=== PATIENT | female | born 1935 | race Caucasian/White ===

== ENCOUNTER → 2020-02-08 10:39 | Outpatient (BNVA) | payer MEDICARE, OTHER, SELFPAY | PROVIDERS: PCP Internal Medicine; Visit Provider Surgery | DX: Z86.000 Personal history of in-situ neoplasm of breast (principal) | CPT/HCPCS: 99213 ==

== ENCOUNTER → 2020-02-24 09:33 | Outpatient (BNVA) | payer MEDICARE, OTHER, SELFPAY | PROVIDERS: PCP Internal Medicine; Referring Provider Internal Medicine; Visit Provider Internal Medicine Endocrinology, Diabetes & Metabolism | DX: M81.0 Age-related osteoporosis without current pathological fracture (principal); E83.52 Hypercalcemia; Z87.891 Personal history of nicotine dependence | CPT/HCPCS: 99212 ==

== ENCOUNTER → 2020-02-29 10:56 | Outpatient (BNVA) | payer MEDICARE, OTHER, SELFPAY | PROVIDERS: PCP Internal Medicine; Visit Provider Nurse Practitioner Gerontology | DX: M81.0 Age-related osteoporosis without current pathological fracture (principal) | CPT/HCPCS: 96401; J0897 ==

== ENCOUNTER 2020-03-20 08:44 | Outpatient (REF) | payer MEDICARE, OTHER, SELFPAY ==
[2020-03-20 10:51] LABS: Alanine Aminotransferase 20 U/L (0-31); Albumin Level 3.8 g/dL (3.5-5.0); Alkaline Phosphatase 65 U/L (39-117); Anion Gap 11 (12-20); Aspartate Amino Transferase 21 U/L (5-31); Bilirubin Total 0.8 mg/dL (0.0-1.0); Blood Urea Nitrogen 21 mg/dL (9-16); Calcium 9.1 mg/dL (8.4-10.2); Carbon Dioxide 29 mmol/L (22-29); Chloride 106 mmol/L (96-108); Estimated Glomerular Filt Rate > 60; Glucose Fasting 87 mg/dL (60-99); Potassium 4.2 mmol/l (3.3-5.1); Sodium 142 mmol/L (135-145); Total Protein 6.4 g/dL (6.5-8.0)
[2020-03-20 11:11] LABS: Vitamin D 25-OH Total 43.3 ng/mL (>30)
[2020-03-22 12:12] LABS: Calcium (PTHI) 9.6 mg/dL (8.6-10.4); PTHI 57 pg/mL (14-64)
[2020-03-27 07:42] LABS: N-Telopeptide 25 (see note); NTXCreaRU 74 mg/dL (20-275)
== END 2020-03-20 08:45 | disposition home or self-care (01) ==
LOC: HO.10HDL 08:44
PROVIDERS: Visit Provider Internal Medicine Endocrinology, Diabetes & Metabolism
DX: M81.0 Age-related osteoporosis without current pathological fracture (principal)
CPT/HCPCS: 80053; 82306; 82523; 83970

== ENCOUNTER 2020-07-10 07:51 | Outpatient (REF) | payer MEDICARE, OTHER, SELFPAY ==
[2020-07-10 14:22] LABS: Alanine Aminotransferase 20 U/L (0-31); Alkaline Phosphatase 64 U/L (39-117); Anion Gap 13 (12-20); Aspartate Amino Transferase 22 U/L (5-31); Bilirubin Total 0.6 mg/dL (0.0-1.0); Blood Urea Nitrogen 20 mg/dL (9-16); Calcium 9.6 mg/dL (8.4-10.2); Carbon Dioxide 29 mmol/L (22-29); Chloride 106 mmol/L (96-108); Cholesterol 165 mg/dL; Estimated Glomerular Filt Rate > 60; Glucose Fasting 85 mg/dL (60-99); HDL Cholesterol 72 mg/dL; LDL Cholesterol Calculated 80 mg/dl; Potassium 4.3 mmol/L (3.3-5.1); Sodium 144 mmol/L (135-145); Total Protein 6.6 g/dL (6.5-8.0); Triglycerides 69 mg/dL
== END 2020-07-10 07:52 | disposition home or self-care (01) ==
LOC: HO.10HDL 07:51
PROVIDERS: Visit Provider Internal Medicine
DX: E78.5 Hyperlipidemia, unspecified (principal)
CPT/HCPCS: 36415; 80053; 80061

== ENCOUNTER 2020-08-02 10:01 | Outpatient (REF) | payer MEDICARE, OTHER, SELFPAY ==
--- NOTE | 2020-08-03 14:39 | MHC.AU.AHA ---
Adult Audiological Evaluation Date of Visit: 08/02/20 Reason for Appointment: History of hearing loss. Patient arrives to determine if there have been any changes in hearing. 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 Ear History: Recent Ear Drainage: None Reported Recent Ear Pain: None Reported Recent Ear Infections: None Reported Medical History: Medical History: COPD, Hypertension Hearing Instrument History- Right Ear: Unitizer: Phonak Model: Makstr M BTE Serial Number: [id number] Battery Size: 312 Repair Warranty: 11/30/2013 Dispensed By: [facility] Date of Fitt[place]09/18/2011 Hearing Instrument History- Left Ear: Unitizer: Phonak Model: Makstr M BTE Serial Number: [id number] Battery Size: 312 Warranty: 11/30/2013 Dispensed By: [facility] Date of Fittin09/18/2011 Otoscopy: Right Ear: Unremarkable Left Ear: Unremarkable Hearing Evaluation: Transducer(s) Used: Insert Earphones Method: Conventional Audiometry Stimuli Used: Pure Tones Right Ear: Description of Hearing: Moderate sloping to moderately-severe sensorineural hearing loss Left Ear: Description of Hearing: Moderate sloping to moderately-severe sensorineural hearing loss Speech Recognition Threshold (SRT): Method Used: Recorded Lists Stimuli Used: Spondee Words Right Ear: 55 dBHL Left Ear: 55 dBHL Word Discrimination: Method: Recorded Lists Word Lists Used: NU-6 Right Ear: 80% at 85 dBHL Left Ear: 84% at 75 dBHL Most Comfortable Level (MCL): Right Ear: 85 dBHL Left Ear: 75 dBHL Comparison: Compared to most recent evaluation: Thresholds have slightly decreased Recommendations: Audiological re-evaluation in one year. Hearing aid maintenance performed today. Hearing aid(s) reprogrammed with updated test results. Diagnosis: Primary Diagnosis: H90.3 Bilateral Sensorineural Hearing Loss Services Performed: Comprehensive Audiological Evaluation (CPT 42474) Signature: Provider: Selma Cordova, [facility]
== END 2020-08-02 10:02 | disposition home or self-care (01) ==
LOC: HO.SH 10:01
PROVIDERS: Visit Provider Internal Medicine
DX: H90.3 Sensorineural hearing loss, bilateral (principal)
CPT/HCPCS: 92557

== ENCOUNTER → 2020-08-30 11:15 | Outpatient (BNVA) | payer MEDICARE, OTHER, SELFPAY | PROVIDERS: PCP Internal Medicine; Visit Provider Internal Medicine Endocrinology, Diabetes & Metabolism | DX: M81.0 Age-related osteoporosis without current pathological fracture (principal); E83.52 Hypercalcemia | CPT/HCPCS: 96372; 99212; J0897 ==

== ENCOUNTER 2020-09-07 13:02 | Outpatient (REF) | payer MEDICARE, OTHER, SELFPAY | END 2020-09-07 13:03 | disposition home or self-care (01) | LOC: HO.HAP 13:02 | PROVIDERS: Visit Provider Internal Medicine | DX: N39.41 Urge incontinence (principal); K21.9 Gastro-esophageal reflux disease without esophagitis; I10 Essential (primary) hypertension | CPT/HCPCS: 51798; 99212 ==

== ENCOUNTER 2020-09-15 09:29 | Outpatient (REF) | payer MEDICARE, OTHER, SELFPAY ==
[2020-09-15 10:51] LABS: Albumin Level 4.1 g/dL (3.5-5.0); Calcium 9.6 mg/dL (8.4-10.2)
== END 2020-09-15 09:30 | disposition home or self-care (01) ==
LOC: HO.LAB 09:29
PROVIDERS: PCP Internal Medicine; Visit Provider Internal Medicine Endocrinology, Diabetes & Metabolism
DX: M81.0 Age-related osteoporosis without current pathological fracture (principal)
CPT/HCPCS: 36415; 82040; 82310

== ENCOUNTER 2020-09-25 11:47 | Outpatient (REF) | payer SELFPAY | END 2020-09-25 11:48 | disposition home or self-care (01) | LOC: HO.HAP 11:47 | PROVIDERS: Visit Provider Internal Medicine | DX: Z46.1 Encounter for fitting and adjustment of hearing aid (principal); H90.3 Sensorineural hearing loss, bilateral | CPT/HCPCS: V5264; V5299 ==

== ENCOUNTER 2020-12-22 10:00 | Outpatient (REF) | payer MEDICARE, OTHER, SELFPAY ==
--- NOTE | ~2020-12-22 | MM_ITS ---
EXAMINATION: MM SCREENING DIGITAL BREAST TOMOSYNTHESIS, BILATERAL CLINICAL INFORMATION: Screening. Asymptomatic. History right lumpectomy for breast cancer, 2007. COMPARISON: Mammography: 12/21/2019, 12/18/2018, 12/16/2017, 11/28/2016 TECHNIQUE: Digital breast tomosynthesis is performed in both the craniocaudal and mediolateral oblique views along with computer-aided detection (CAD). Synthesized 2D images are generated from the tomosynthesis. Additional right MLO view is provided. FINDINGS: There are scattered areas of fibroglandular density (ACR BI-RADS breast composition Category b). There are no significant masses, abnormal calcifications, or other abnormalities. Parenchymal pattern is similar to prior exams. There are post therapy changes on the right with mild reduced breast size and stable scarring. There is stable nodularity anterior and posterior inner left breast. Scattered bilateral vascular and round calcifications again seen. No significant changes. MM/MM tomosynthesis screening BI IMPRESSION: No mammographic evidence of malignancy. Post therapy changes right breast. ASSESSMENT: BI-RADS 2: Benign RECOMMENDATION: Routine annual mammography screening. This patient's information was entered into a reminder system with a target due date for their next mammogram.
== END 2020-12-22 10:01 | disposition home or self-care (01) ==
LOC: HO.MAMMO 10:00
PROVIDERS: PCP Internal Medicine; Visit Provider Nurse Practitioner Family
DX: Z12.31 Encounter for screening mammogram for malignant neoplasm of breast (principal)
CPT/HCPCS: 77063; 77067

== ENCOUNTER 2021-01-28 17:29 | Emergency (ER) | payer MEDICARE, OTHER, SELFPAY ==
--- NOTE | ~2021-01-28 | CT_ITS ---
EXAMINATION: CT HEAD WITHOUT CONTRAST CLINICAL INFORMATION: Left leg numbness and weakness for 4 days. Aphasia for 4 hours. Rule out stroke or bleed COMPARISON: Brain MRI 05/19/2019 TECHNIQUE: Contiguous axial imaging was performed from the skull base to vertex without intravenous administration of contrast. This CT examination was performed using dose optimization techniques as appropriate, variously including the following: *Automated exposure control *Adjustment of mA and/or kV according to patient size (this includes techniques or standardized protocols for targeted exams where dose is matched to indication/reason for exam; i.e. extremities or head) *Use of iterative reconstruction technique DLP: 548 mGy-cm FINDINGS: There is no evidence of acute intracranial hemorrhage or territorial infarction. No abnormal mass effect or midline shift is seen. Ha[place] to white matter differentiation is well preserved. No extra-axial fluid collections are identified. Ventricles and sulci are similar in configuration to the prior study. Again seen are bilateral well-circumscribed areas of CSF density in the bilateral basal ganglia consistent with chronic lacunar infarcts and likely superimposed prominent perivascular spaces as was noted on the prior MRI. Moderate patchy periventricular and subcortical white matter hypodensity is seen as well. The osseous structures and soft tissues are normal. The mastoid air cells and visualized portions of the paranasal sinuses are well aerated. CT/CT head/brain wo con IMPRESSION: No acute intracranial pathology.
[2021-01-28 17:42] VITALS: BP 180/85; BP 190/70; PULSE 71; PULSE 86; RESP 16; TEMP 36.4; O2SAT 100; O2SAT 99; BMI 26.4
--- NOTE | 2021-01-28 18:30 | ED_ITS ---
HPI - General Adult General Chief complaint: General Medical Stated complaint: R FACE DROOP,SPEECH DIFF SINCE FRIDAY,-STROKE SC Time Seen by Provider: 01/28/21 18:08 Source: patient Mode of arrival: EMS Limitations: no limitations History of Present Illness HPI narrative: 85-year-old female who presents emergency department for evaluation of intermittent, left leg weakness and numbness x4 days and difficulty with word finding times several hours. The patient states that on (4 days prior to evaluation) she developed numbness in her left leg. She states that the numbness is been constant. She denied pain in her leg. She states that 3 days prior to evaluation she was walking up the stairs into her house and her left leg felt weak and gave out on her causing her to fall forward. This was a witnessed fall and the patient did not hit her head or lose consciousness. She states that since fall she has had intermittent weakness of her left leg and persistent numbness. She states she is having some mild pain in her left buttocks area but no pain in her lower back. Patient has a history osteoarthritis of the spine and states that she has had workups in the past by the [facility]. She states that today she was talking to her neighbor and her neighbor told her that her speech was slurred and that she was having difficulty with word finding. Given this symptom, an ambulance was called and the patient was brought to the emergency department for evaluation. In the emergency department, the patient states that her speech sounds normal to her, her sisters tears well and states that the patient's speech is at her baseline. The patient continues to complain of numbness in her left leg with no weakness at this time, no pain and some mild pain in her left buttocks area. She denied fever, chills, chest pain, shortness of breath, cough, dyspnea on exertion, abdominal pain, loss of bowel or bladder control. Related Data Home Medications Medication Instructions Recorded Confirmed glucosamine sulfate 1,000 mg 1,000 mg PO DAILY cap 02/08/20 10/24/20 capsule ibuprofen 200 mg tablet (Advil) 200 mg PO Q6H PRN 02/08/20 10/24/20 multivitamin 1 tab PO DAILY 02/08/20 10/24/20 aspirin 81 mg tablet,delayed 81 mg PO DAILY 02/24/20 10/24/20 release (Adult Aspirin Regimen) denosumab 60 mg/mL subcutaneous 60 mg SUBCUT [id number] 05/16/20 10/24/20 syringe (Prolia) lansoprazole 30 mg capsule,delayed 30 mg PO DAILY cap 05/16/20 10/24/20 release nitrofurantoin macrocrystal 100 mg 100 mg PO BEDTIME 09/07/20 10/24/20 capsule Previous Rx's Medication Instructions Recorded amlodipine 2.5 mg tablet 2.5 mg PO DAILY 90 Days #90 tab 05/16/20 losartan 100 mg tablet 100 mg PO DAILY 90 Days #90 tab 05/16/20 tolterodine 4 mg capsule,extended 4 mg PO DAILY 90 Days #90 cap 05/30/20 release 24 hr hydrochlorothiazide 12.5 mg capsule 12.5 mg PO DAILY #90 cap 06/18/20 simvastatin 20 mg tablet 20 mg PO BEDTIME #90 tab 07/11/20 tiotropium bromide 18 mcg capsule 1 cap INHALATION DAILY 90 Days #90 01/03/21 with inhalation device inh prednisone 20 mg tablet 40 mg PO DAILY 7 Days #14 tab 01/28/21 Allergies Allergy/AdvReac Type Severity Reaction Status Date / Time cephalexin [Keflex] Allergy Intermediate Unknown Verified 10/24/20 14:30 tetracycline [Tetracycline] Allergy Intermediate TONGUE Verified 10/24/20 14:30 SWOLLEN diphtheria,pertussis Allergy Mild Unknown Verified 10/24/20 14:30 (amina aguilar Review of Systems Review of Systems: Yes all other systems are reviewed and are negative [facility] Past Medical History [facility] Narrative: Social history: She denies tobacco use. She states that she drinks alcohol every other day, she drinks 4 oz of wine. She denies drug use. Medical History COPD (chronic obstructive pulmonary disease) Dyslipidemia GERD (gastroesophageal reflux disease) Hearing loss History of ductal carcinoma in situ (DCIS) of breast Hypercalcemia Hypertension Osteoporosis Screening for breast cancer Urge urinary incontinence Surgical History H/O right inguinal hernia repair History of colonoscopy History of lumpectomy of right breast History of pubovaginal sling Family History Family History Father Heart failure CVD (cardiovascular disease) Mother Breast cancer Social History Social History Alcohol intake: current Alcohol intake frequency: does not drink Alcohol type: wine Patient Tobacco Use Status: Former Tobacco user Quit Date: 02/04/91 Use of substances other than those prescribed or required for medical reasons: No Advance Directives: No Advance Directives Information Provided: No Physical Exam Vital Signs: Vital Signs: Last Vital Signs Temp 97.6 F 01/28/21 17:42 Pulse 71 01/28/21 17:42 Resp 16 01/28/21 17:42 BP 190/70 H 01/28/21 17:42 Pulse Ox 100 01/28/21 17:42 Body Mass Index 26.4 Const: General: cooperative and no acute distress Orientation/consciousness: oriented to person and oriented to place Limitations: no limitations HENMT: Head: Yes normal to inspection, Yes normocephalic and Yes atraumatic Ears: external ears normal General nose exam: Normal external nose present Face and sinus: Yes normal facial exam Mouth: Normal oral and palatal mucosa present Throat: Yes posterior oropharynx normal Eyes: General: appearance normal, both eyes and all related structures Pupils: Equal, round and reactive pupils present Neck: Neck: Yes normal visual inspection, Yes no lymphadenopathy, Yes trachea midline and Yes supple Chest: Chest palpation & inspection: normal inspection of the chest and normal palpation of entire chest wall Resp: Effort & Inspection: normal respiratory effort and able to speak in com plete sentences Auscultation: clear to auscultation bilaterally Cardio: Rate: regular rate Rhythm: regular rhythm Heart sounds: S1 normal heart sound present, S2 normal heart sound present and no murmurs GI: Inspection: Yes normal to inspection Palpation (GI): Soft to palpation, nontender and no guarding Auscultation: normal bowel sounds : General: Yes no CVA tenderness Back/Spine/Pelvis: Other: No cervical spine tenderness., no cervical muscle tenderness. Full range of motion common. Back: no CVA tenderness Thoracic/Lumbar Spine: straight leg raise negative bilaterally, No thoracic spinal tenderness, lumbar spinal tenderness at L3, at L4 and at L5 and other (Mi ld tenderness with palpation of the left buttocks, no SI joint tenderness) Skin: General skin exam: no rashes or lesions noted Neuro: General: oriented to person and oriented to place Cranial nerves: Yes CN's II-XII intact bilaterally and Yes Equal, round and reactive pupils present Cognition (Neuro): normal cognition Motor exam (neuro): 5/5 motor strength present throughout Sensory Exam: other (Symmetric light touch bilaterally) Extrem: General: Yes normal to inspection Psych: Appearance: grossly normal Speech and movement: Normal speech and movement present Affect: normal affect Attitude: cooperative Thought process: Normal thought process present Thought content: Normal thought content present NIH Stroke Scale Level of Consciousness: Alert Level of Consciousness Questions: Answers both questions correctly Level of Consciousness Commands: Performs both tasks correctly Best Gaze: Normal Visual: No visual loss Facial Palsy: Normal Motor Arm (Right): No drift Motor Arm (Left): No drift Motor Leg (Right): No drift Motor Leg (Left): No drift Limb Ataxia: Absent Sensory: Normal Best Language: No aphasia Dysarthia: Normal Extinction and Inattention: No abnormality Score: 0 Course Course Course Narrative: 85-year-old female who presents emergency department for evaluation numbness and intermittent weakness of her left lower extremity x4 days, left buttocks pain x4 days, and reported difficulty with slurred speech and word-finding difficulties times several hours prior to coming to the emergency department. The patient's vital signs revealed an elevated blood pressure of 190/70 otherwise were unremarkable. The patient's neurologic exam was nonfocal, the patient does have some tenderness palpation of her lumbar spine and left buttocks area. She has normal light touch sensation to her lower extremities and this is symmetric. Given her reported difficulty with her speech, a CT scan of the head without IV contrast was ordered. I also ordered a CBC, CMP, urinalysis, blood alcohol level, urine tox screen. Twelve EKG was obtained as well. 2044: Patient's laboratory evaluation was unremarkable. CT scan of the head without contrast revealed no acute pathology. At this time I do not think the patient has had a stroke or TIA. The patient's left leg numbness is more consistent with radiculopathy. Patient was started on prednisone 40 mg once a day for 7 days . She was also advised to take Tylenol for pain and to avoid NSAIDs. Patient was discharged home with printed and verbal instructions. Medical Decision Making Lab Data Result diagrams: 01/28/21 18:40 01/28/21 18:40 Labs: Lab Results 01/28/21 01/28/21 01/28/21 Range/Units 18:40 18:40 18:40 WBC 5.0 (4.8-10.8) X10*3/uL RBC 4.10 L (4.20-5.50) X10*6/uL Hgb 12.5 (12.0-16.0) g/dl Hct 37.7 (37-47) % MCV 92.0 (80-98) fL MCH 30.5 (27.0-33.0) pg MCHC 33.2 (31.0-35.0) g/dl RDW 12.9 (11.0-16.0) % Plt Count 298 (160-400) X10*3/uL MPV 9.6 (9.4-12.3) fL Immature Gran % (Auto) 0.2 (0.0-0.4) % Neut % (Auto) 60.0 (45-73) % Lymph % (Auto) 26.3 (20-40) % [place] % (Auto) 11.1 H (2-11) % Eos % (Auto) 2.0 (0-4) % Baso % (Auto) 0.4 (0-2) % Lymph # (Auto) 1.3 (1.2-4.9) X10*3/uL [place] # (Auto) 0.6 (0.1-1.2) X10*3/uL Eos # (Auto) 0.1 (0.0-0.4) X10*3/uL Baso # (Auto) 0.0 (0.0-0.2) X10*3/uL Abs Immat Gran (auto) 0.01 (0.00-0.03) X10*3/uL Absolute Neuts (auto) 3.0 (2.0-8.3) X10*3/uL Absolute Nucleated RBC 0.000 (0.0-0.012) X10*3/uL Nucleated RBC % (auto) 0.0 (0.0-0.2) /100WBC Sodium 143 (135-145) mmol/L Potassium 3.7 (3.3-5.1) mmol/L Chloride 107 (96-108) mmol/L Carbon Dioxide 27 (22-29) mmol/L Anion Gap 13 (12-20) BUN 21 H (9-16) mg/dL Creatinine 0.78 (0.5-1.4) mg/dL Estim Creat Clear Calc 37.7 Estimated GFR > 60 Random Glucose 110 (60-115) mg/dL Calcium 10.1 (8.4-10.2) mg/dL Total Bilirubin 0.7 (0.0-1.0) mg/dL AST 22 (5-31) U/L ALT 17 (0-31) U/L Alkaline Phosphatase 72 (39-117) U/L Total Protein 6.8 (6.5-8.0) g/dL Albumin 3.9 (3.5-5.0) g/dL Urine Color Urine Appearance Urine pH (5.0-8.0) Ur Specific [place] (1.005-1.025) Urine Protein (NEG-TRACE) MG/DL Urine Glucose (UA) (NEG) MG/DL Urine Ketones (NEG) MG/DL Urine Blood (NEG) Urine Nitrite (NEG) Ur Leukocyte Esterase (NEG) Urine RBC (0) /HPF Urine WBC (0-4) /HPF Ur Squamous Epith Cells /LPF Urine Bacteria /LPF Ethyl Alcohol < 10 mg/dL 01/28/21 Range/Units 20:18 WBC (4.8-10.8) X10*3/uL RBC (4.20-5.50) X10*6/uL Hgb (12.0-16.0) g/dl Hct (37-47) % MCV (80-98) fL MCH (27.0-33.0) pg MCHC (31.0-35.0) g/dl RDW (11.0-16.0) % Plt Count (160-400) X10*3/uL MPV (9.4-12.3) fL Immature Gran % (Auto) (0.0-0.4) % Neut % (Auto) (45-73) % Lymph % (Auto) (20-40) % [place] % (Auto) (2-11) % Eos % (Auto) (0-4) % Baso % (Auto) (0-2) % Lymph # (Auto) (1.2-4.9) X10*3/uL [place] # (Auto) (0.1-1.2) X10*3/uL Eos # (Auto) (0.0-0.4) X10*3/uL Baso # (Auto) (0.0-0.2) X10*3/uL Abs Immat Gran (auto) (0.00-0.03) X10*3/uL Absolute Neuts (auto) (2.0-8.3) X10*3/uL Absolute Nucleated RBC (0.0-0.012) X10*3/uL Nucleated RBC % (auto) (0.0-0.2) /100WBC Sodium (135-145) mmol/L Potassium (3.3-5.1) mmol/L Chloride (96-108) mmol/L Carbon Dioxide (22-29) mmol/L Anion Gap (12-20) BUN (9-16) mg/dL Creatinine (0.5-1.4) mg/dL Estim Creat Clear Calc Estimated GFR Random Glucose (60-115) mg/dL Calcium (8.4-10.2) mg/dL Total Bilirubin (0.0-1.0) mg/dL AST (5-31) U/L ALT (0-31) U/L Alkaline Phosphatase (39-117) U/L Total Protein (6.5-8.0) g/dL Albumin (3.5-5.0) g/dL Urine Color YELLOW Urine Appearance CLEAR Urine pH 6.5 (5.0-8.0) Ur Specific [place] 1.010 (1.005-1.025) Urine Protein NEG (NEG-TRACE) MG/DL Urine Glucose (UA) NEG (NEG) MG/DL Urine Ketones NEG (NEG) MG/DL Urine Blood NEG (NEG) Urine Nitrite NEG (NEG) Ur Leukocyte Esterase TRACE H (NEG) Urine RBC 0 (0) /HPF Urine WBC 5-9 H (0-4) /HPF Ur Squamous Epith Cells TRACE /LPF Urine Bacteria NONE /LPF Ethyl Alcohol mg/dL ECG Data Interpretation: 1911: Normal sinus rhythm rate of 71, normal ND interval QRS normal QTC interval, no ST segment elevation, no ST segment depression, small Q- wave in lead 3 and AVF, no PACs, no PVCs. This is a normal EKG. Discharge Plan Discharge Clinical Impression: Acute left lumbar radiculopathy Patient Disposition: Home, Self-Care Instructions: Lumbar Radiculopathy (ED) Additional Instructions: Your laboratory evaluation was unremarkable. The CT scan of your brain did not reveal any stroke or bleeding in the brain. The left leg numbness is most likely caused by either arthritis of your lower back or discs of your lower back causing inflammation around the nerves to go down your left leg. This is called lumbar radiculopathy. I am treating you with prednisone 20 mg pills, 2 pills once a day for 7 days. This is a strong anti-inflammatory pain medication. Do not take any [id number] anti-inflammatory medications such as ibuprofen, Motrin, Advil, naproxen or Aleve. You can take Tylenol (acetaminophen) 500 mg pills, 2 pills every 4 to 6 hours as needed for pain. Follow-up with your doctor in 2 days. Please return to the emergency department if your symptoms get worse or if you develop any symptoms that are concerning to you. Prescriptions: New prednisone 20 mg tablet 40 mg PO DAILY 7 Days Qty: 14 RF: 0 No Action amlodipine 2.5 mg tablet 2.5 mg PO DAILY 90 Days Qty: 90 RF: 3 losartan 100 mg tablet 100 mg PO DAILY 90 Days Qty: 90 RF: 3 tolterodine 4 mg capsule,extended release 24hr 4 mg PO DAILY 90 Days Qty: 90 RF: 2 hydrochlorothiazide 12.5 mg capsule 12.5 mg PO DAILY Qty: 90 RF: 3 simvastatin 20 mg tablet 20 mg PO BEDTIME Qty: 90 RF: 3 tiotropium bromide 18 mcg capsule, w/inhalation device 1 cap inhalation DAILY 90 Days Qty: 90 RF: 3 lansoprazole 30 mg capsule,delayed release(DR/EC) 30 mg PO DAILY RF: 0 Prolia 60 mg/mL syringe 60 mg subcut [id number] RF: 0 glucosamine sulfate 1,000 mg capsule 1,000 mg PO DAILY RF: 0 multivitamin Tablet 1 tab PO DAILY RF: 0 ibuprofen [Advil] 200 mg tablet 200 mg PO Q6H PRNRF: 0 aspirin [Adult Aspirin Regimen] 81 mg tablet,delayed release (DR/EC) 81 mg PO DAILY RF: 0 nitrofurantoin macrocrystal 100 mg capsule 100 mg PO BEDTIME RF: 0
--- NOTE | 2021-01-28 18:32 | ECG_ITS ---
Test Reason : WEAKNESS Blood Pressure : / mmHG Vent. Rate : 071 BPM Atrial Rate : 071 BPM P-R Int : 172 ms QRS Dur : 098 ms QT Int : 412 ms P-R-T Axes : 064 070 032 degrees QTc Int : 447 ms Normal sinus rhythm Intra-ventricular conduction delay Otherwise normal ECG When compared with ECG of 03-DEC-2016 11:26, Premature ventricular complexes are no longer Present Referred By: Ishaan Jauregui Electronically Signed By:RONA CORREA MD
[2021-01-28 18:43] LABS: MANUAL DIFF FLAG NO
[2021-01-28 18:44] LABS: Basophils Percent Auto 0.4 % (0-2); Eosinophils Absolute Auto 0.1 X10*3/uL (0.0-0.4); Hematocrit 37.7 % (37-47); Hemoglobin 12.5 g/dl (12.0-16.0); Imm Gran Abs Auto 0.01 X10*3/uL (0.00-0.03); Imm Gran Pct Auto 0.2 % (0.0-0.4); Lymphocytes Absolute Auto 1.3 X10*3/uL (1.2-4.9); Lymphocytes Percent Auto 26.3 % (20-40); Mean Corpuscular HGB Conc 33.2 g/dl (31.0-35.0); Mean Corpuscular Hemoglobin 30.5 pg (27.0-33.0); Mean Platelet Volume 9.6 fL (9.4-12.3); Monocytes Absolute Auto 0.6 X10*3/uL (0.1-1.2); Monocytes Percent Auto 11.1 % (2-11); Platelet Count 298 X10*3/uL (160-400); Red Cell Distribution Width 12.9 % (11.0-16.0)
[2021-01-28 19:03] LABS: Ethanol < 10 mg/dL
[2021-01-28 19:05] LABS: Alanine Aminotransferase 17 U/L (0-31); Albumin Level 3.9 g/dL (3.5-5.0); Alkaline Phosphatase 72 U/L (39-117); Anion Gap 13 (12-20); Aspartate Amino Transferase 22 U/L (5-31); Bilirubin Total 0.7 mg/dL (0.0-1.0); Blood Urea Nitrogen 21 mg/dL (9-16); Calcium 10.1 mg/dL (8.4-10.2); Carbon Dioxide 27 mmol/L (22-29); Chloride 107 mmol/L (96-108); Creatinine Clr Calc Pharmacy 37.7; Estimated Glomerular Filt Rate > 60; Glucose Random 110 mg/dL (60-115); Potassium 3.7 mmol/L (3.3-5.1); Sodium 143 mmol/L (135-145); Total Protein 6.8 g/dL (6.5-8.0)
--- NOTE | 2021-01-28 20:07 | PC.NURSE ---
pt placed on bedpan waiting for ct results. pt talking in full sentences aox3 no s/s or distress. call aguilar at bedside.
[2021-01-28 20:26] LABS: Appearance Urine CLEAR; Color Urine YELLOW; Glucose Urine UA NEG (NEG); Leukocyte Esterase Urine TRACE (NEG); Nitrite Urine NEG (NEG); PH 6.5 (5.0-8.0); UACC Culture Trigger YES; Urine Blood NEG (NEG); Urine Ketones NEG (NEG); Urine Protein NEG (NEG-TRACE)
[2021-01-28 20:37] LABS: RBC Urine 0 /HPF (0)
[2021-01-28 20:38] LABS: Squamous Epithelial Cell Urine TRACE /LPF
[2021-01-28 20:46] LABS: Amphetamine Screen Urine Not Detected (Not Detect); Barbiturates, Urine Not Detected (Not Detect); Benzodiazepines Screen Urine Not Detected (Not Detect); Cannabinoid Screen Urine Not Detected (Not Detect); Cocaine Screen Urine Not Detected (Not Detect); Fentanyl, urine Not Detected (Not Detect); Opiate Screen Urine Not Detected (Not Detect); Phencyclidine Screen Urine Not Detected (Not Detect)
[2021-01-28] MEDS: predniSONE 20 MG TABLET 40 MG PO (21:04)
== END 2021-01-28 21:12 | disposition home or self-care (01) ==
PROVIDERS: Emergency Provider Emergency Medicine Emergency Medical Services; PCP Internal Medicine
DX: M54.16 Radiculopathy, lumbar region (principal); I10 Essential (primary) hypertension; J44.9 Chronic obstructive pulmonary disease, unspecified; Z79.899 Other long term (current) drug therapy
CPT/HCPCS: 36415; 70450; 80053; 80307; 81001; 82077; 85025; 87086; 93005; 99284; 99285

== ENCOUNTER 2021-02-06 19:11 | Outpatient (REF) | payer MEDICARE, OTHER, SELFPAY ==
--- NOTE | ~2021-02-06 | MR_ITS ---
EXAMINATION: MR BRAIN WITHOUT CONTRAST CLINICAL INFORMATION: Weakness. COMPARISON: CT head from 01/28/2021. TECHNIQUE: MRI of the brain was obtained using routine sequences without contrast. FINDINGS: There is a region of restricted diffusion within the posterior limb of the right internal capsule (associated mildly low values on the ADC map). No additional focal restricted diffusion. No evidence of acute or chronic hemorrhagic products on heme-sensitive imaging. Scattered periventricular, deep white matter, and brainstem T2 FLAIR hyperintensities consistent with moderate underlying microangiopathy. Chronic lacunar infarcts of the bilateral lentiform nuclei and thalami. Etat crible. Proportional prominence of the ventricles and sulcal spaces without evidence of obstructive hydrocephalus. No abnormal mass effect. No midline shift. Normal appearance of the pituitary gland. Normal positioning of the cerebellar tonsils. Normal arterial and venous vascular flow voids are present. Normal, homogeneous marrow signal. Mild mucosal thickening of the paranasal sinuses. No signal abnormalities within the mastoids. MR/MR head/brain wo con IMPRESSION: 1. 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 2. Moderate underlying microangiopathy and generalized cerebral volume loss. Multiple chronic lacunar infarcts of the deep nuclei.
== END 2021-02-06 19:12 | disposition home or self-care (01) ==
LOC: HO.MRI 19:11
PROVIDERS: PCP Student in an Organized Health Care Education/Training Program; Visit Provider Internal Medicine
DX: R53.1 Weakness (principal)
CPT/HCPCS: 70551

== ENCOUNTER 2021-02-07 14:13 | Outpatient (REF) | payer MEDICARE, OTHER, SELFPAY ==
--- NOTE | ~2021-02-07 | XR_ITS ---
EXAMINATION: XR HIP, LEFT CLINICAL INFORMATION: Pain in left hip COMPARISON: None TECHNIQUE: Two views of the left hip. FINDINGS: There is no fracture or dislocation. The femoral head articulates appropriately with its acetabulum. The joint space is maintained. The visualized left hemipelvis is intact. Radiopaque hardware along the pubic symphysis bilaterally. XR/XR hip LT min 2V IMPRESSION: Normal left hip.
--- NOTE | ~2021-02-07 | XR_ITS ---
EXAMINATION: XR LUMBOSACRAL SPINE CLINICAL INFORMATION: Sciatica, left side COMPARISON: 11/03/2018 TECHNIQUE: Three views of the lumbosacral spine. FINDINGS: Osteopenia. No fracture or subluxation. Vertebral body height and alignment maintained. Mild disc space narrowing at L5-S1. Mild multilevel facet arthropathy with small endplate osteophytes. The sacroiliac joints are symmetric. The visualized sacrum is intact. Nonobstructive bowel gas pattern. XR/XR lumbar spine 2-3V IMPRESSION: Mild multilevel degenerative changes of the lumbar spine, similar to prior.
== END 2021-02-07 14:14 | disposition home or self-care (01) ==
LOC: HO.XRAY 14:13
PROVIDERS: PCP Internal Medicine; Visit Provider Internal Medicine
DX: M54.32 Sciatica, left side (principal); M25.552 Pain in left hip
CPT/HCPCS: 72100; 73502

== ENCOUNTER 2021-02-21 10:46 | Outpatient (RCR) | payer MEDICARE, OTHER, SELFPAY ==
--- NOTE | 2021-03-19 17:09 | MHC.PT.DC ---
[facility] [place] [facility] [place] [facility] [place] [facility] [address] Kristi Lowe [address] [phone] F: [phone] F: [phone] F: [phone] F: [phone] Physical Therapy Discharge Report Diagnosis: sciatica and weakness Date of Surgery: n/a Date of Evaluation: 02/21/21 Date of Discharge: 03/19/21 Treatments to Date: 0 Cancellations to Date: 0 No Shows to Date: 0 Discharge Status: Physician Discontinued Tx Discharge Summary: Pt was [place] [facility] due to uncontrolled BP as noted on initial eval. She has since been d/c home with services. Therefore outpatient skilled PT is no longer indicated at this time based on pt current medical status. Electronically signed by: Rocio Danielson, PT, DPT, ATC Please sign and return to therapist. Thank you for your referral.
== END 2021-03-19 17:09 | disposition home or self-care (01) ==
LOC: HO.PT 10:46
PROVIDERS: PCP Internal Medicine; Visit Provider Internal Medicine
DX: M54.32 Sciatica, left side (principal)
CPT/HCPCS: 97162

== ENCOUNTER 2021-02-21 11:51 | Observation (INO) | payer MEDICARE, OTHER, SELFPAY ==
--- NOTE | ~2021-02-21 | CT_ITS ---
EXAMINATION: CT HEAD WITHOUT CONTRAST CLINICAL INFORMATION: Blurry vision and hypertension COMPARISON: February 06, 2021 and January 28, 2021 TECHNIQUE: Contiguous axial imaging was performed from the skull base to vertex without intravenous administration of contrast. This CT examination was performed using dose optimization techniques as appropriate, variously including the following: *Automated exposure control *Adjustment of mA and/or kV according to patient size (this includes techniques or standardized protocols for targeted exams where dose is matched to indication/reason for exam; i.e. extremities or head) *Use of iterative reconstruction technique DLP: 557 mGy-cm FINDINGS: There is no evidence of acute intracranial hemorrhage or territorial infarction. No abnormal mass effect or midline shift is seen. No extra-axial fluid collections are identified. There is prominence of the ventricles, sulci, and cisterns which is stable consistent with some degree of generalized atrophy. There is a large amount of periventricular white matter low density consistent with microangiopathy. Multiple old lacunar infarcts are seen about the lentiform nuclei bilaterally and along the internal and extreme capsules bilaterally. There are also noted to be chronic lacunar infarcts involving the insular cortices bilaterally. The MRI findings of recent right posterior limb of internal capsule infarct is not readily visible on CT scan. The osseous structures and soft tissues are normal. The mastoid air cells and visualized portions of the paranasal sinuses are well aerated. CT/CT head/brain wo con IMPRESSION: No acute intracranial pathology. 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 Cerebral atrophy.
[2021-02-21 12:15] VITALS: BP 205/72; PULSE 85; RESP 18; TEMP 36.5; O2SAT 99; BMI 26.2
[2021-02-21 13:53] VITALS: BP 195/86; PULSE 87; RESP 18; O2SAT 99
--- NOTE | 2021-02-21 14:03 | ED.GENADULT ---
HPI - General Adult General Chief complaint: General Medical Stated complaint: hbp Time Seen by Provider: 02/21/21 13:53 Source: patient Mode of arrival: ambulatory History of Present Illness HPI narrative: 85-year-old female with past medical history COPD, hyperlipidemia, HTN, osteoporosis, presenting to the ED sent in from PT for elevated BP and blurry vision [employer] with recent diagnosis of CVA on 02/06 via MRI. Reports left foot numbness unchanged. Denies headache, chest pain, lightheadedness/dizziness, SOB, abdominal pain, nausea/vomiting, new numbness/tingling, fever/chills Admits to taking antihypertensives this morning/not missing any doses Onset (ago): day(s) Related Data Home Medications Medication Instructions Recorded Confirmed glucosamine sulfate 1,000 mg 1,000 mg PO DAILY cap 02/08/20 02/20/21 capsule ibuprofen 200 mg tablet (Advil) 200 mg PO Q6H PRN 02/08/20 02/20/21 multivitamin 1 tab PO DAILY 02/08/20 02/20/21 aspirin 81 mg tablet,delayed 81 mg PO DAILY 02/24/20 02/20/21 release (Adult Aspirin Regimen) denosumab 60 mg/mL subcutaneous 60 mg SUBCUT [id number] 05/16/20 02/20/21 syringe (Prolia) lansoprazole 30 mg capsule,delayed 30 mg PO DAILY cap 05/16/20 02/20/21 release nitrofurantoin macrocrystal 100 mg 1 cap PO BEDTIME 02/21/21 capsule Previous Rx's Medication Instructions Recorded amlodipine 2.5 mg tablet 2.5 mg PO DAILY 90 Days #90 tab 05/16/20 losartan 100 mg tablet 100 mg PO DAILY 90 Days #90 tab 05/16/20 tolterodine 4 mg capsule,extended 4 mg PO DAILY 90 Days #90 cap 05/30/20 release 24 hr hydrochlorothiazide 12.5 mg capsule 12.5 mg PO DAILY #90 cap 06/18/20 simvastatin 20 mg tablet 20 mg PO BEDTIME #90 tab 07/11/20 tiotropium bromide 18 mcg capsule 1 cap INHALATION DAILY 90 Days #90 01/03/21 with inhalation device inh Allergies Allergy/AdvReac Type Severity Reaction Status Date / Time cephalexin [Keflex] Allergy Intermediate Unknown Verified 02/20/21 11:10 tetracycline [Tetracycline] Allergy Intermediate TONGUE Verified 02/20/21 11:10 SWOLLEN diphtheria,pertussis Allergy Mild Unknown Verified 02/20/21 11:10 (amina aguilar Review of Systems Review of Systems: Constitutional: No Fever, No Chills, No Fatigue, No Malaise ENT/Mouth: No Ear Pain, No Nasal Congestion, No sore throat, No Swallowing Difficulty Eyes: No Eye Pain, No Swelling, No Redness, + Vision Changes (resolved) Cardiovascular: No Chest Pain, No SOB, No Edema, No Palpitations Respiratory: No Cough, No Dyspnea Gastrointestinal: No Nausea, No Vomiting, No Diarrhea, No Constipation, No Abdominal pain Genitourinary: No Dysuria, No Hematuria, No Flank Pain Musculoskeletal: No joint pain, No Myalgias, No Joint Swelling Skin: No Skin Lesions, No rash Neuro: +LLE Weakness (old), + Numbness (old), No Paresthesias, No Loss of Consciousness, No Dizziness, No Headache Yes all other systems are reviewed and are negative Neurologic: Denies Abnormal speech present [facility] Past Medical History Attestation statement: The following information was validated with the patient. Medical History (Updated 02/21/21 @ 17:09 by LUKE Silverman) COPD (chronic obstructive pulmonary disease) Dyslipidemia GERD (gastroesophageal reflux disease) Hearing loss History of ductal carcinoma in situ (DCIS) of breast Hypercalcemia Hypertension Left hip pain Left sided sciatica Left-sided weakness Multiple lacunar infarcts Osteoporosis Screening for breast cancer Urge urinary incontinence Surgical History H/O right inguinal hernia repair History of colonoscopy History of lumpectomy of right breast History of pubovaginal sling Family History Family History Father Heart failure CVD (cardiovascular disease) Mother Breast cancer Social History Social History Housing: Apartment Alcohol intake: current Alcohol intake frequency: does not drink Alcohol type: wine Patient Tobacco Use Status: Former Tobacco user Quit Date: 02/04/91 Tobacco use type: Cigarette e-Cigarette/Vaping Use: Never Used Second Hand Smoke Exposure: No Advance Directives: No Advance Directives Information Provided: No service: No Current occupational status: disabled Physical Exam Vital Signs: Vital Signs: Last Vital Signs Temp 97.7 F 02/21/21 12:15 Pulse 83 02/21/21 14:58 Resp 18 02/21/21 13:53 BP 196/83 H 02/21/21 14:58 Pulse Ox 99 02/21/21 13:53 Body Mass Index 26.2 Const: General: cooperative, healthy appearing and no acute distress Orientation/consciousness: patient oriented x3 Limitations: no limitations HENMT: Head: Yes normal to inspection Ears: hearing grossly normal bilaterally General nose exam: Normal external nose present Face and sinus: Yes normal facial exam Eyes: General: appearance normal, both eyes and all related structures Pupils: Equal, round and reactive pupils present EOM: EOMs intact bilaterally Neck: Neck: Yes normal visual inspection and Yes no meningeal signs Resp: Effort & Inspection: normal respiratory effort Auscultation: clear to auscultation bilaterally, no rales, no rhonchi and no wheezes Cardio: Rate: regular rate Heart sounds: S1 normal heart sound present and S2 normal heart sound present GI: Inspection: Yes normal to inspection Palpation (GI): Soft to palpation, nontender, no guarding and not rigid Skin: Rashes: no rashes Wounds: no wounds Neuro: General: patient oriented x3, gait normal, tone normal, moves all extremities, no meningeal signs and no focal motor deficits Cranial nerves: Yes CN's II-XII intact bilaterally, Yes Equal, round and reactive pupils present and Yes Bilaterally intact EOM present Cognition (Neuro): normal cognition Speech: No Abnormal speech present Gait exam (Neuro): Normal gait present Motor exam (neuro): 5/5 motor strength present throughout, Pronator motor function not present and no tremor noted Coordination: [id number] test normal Romberg Test: Negative Extrem: General: Yes normal to inspection, Yes no pedal edema and Yes no calf tenderness Course Course Course Narrative: -1600--no leukocytosis. Labs otherwise unremarkable. Troponin negative CT head/brain wo con IMPRESSION: No acute intracranial pathology. 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 Cerebral atrophy. >plan for admission for TIA Medical Decision Making [facility] Narrative Medical decision making narrative: 85-year-old female with past medical history COPD, hyperlipidemia, HTN, osteoporosis, presenting to the ED sent in from PT for elevated BP and blurry vision [employer] with recent diagnosis of CVA on 02/06 via MRI. On exam hypertensive, NAD/nontoxic, no focal neuro deficits, ambulating with steady gait, asymptomatic at present. Concern for a TIA vs hypertensive urgency/emergency. Rule out ACS Plan: EKG, labs, CXR, head CT, UA, p.o. Amlodipine, re-evaluate Medical Records Medical records reviewed: Yes I reviewed the patient's medical records. Lab Data Lab results reviewed: Yes I reviewed the patient's lab results. Result diagrams: 02/21/21 14:37 02/21/21 14:37 Labs: Lab Results 02/21/21 02/21/21 02/21/21 Range/Units 14:37 14:37 14:37 WBC 4.9 (4.8-10.8) X10*3/uL RBC 4.19 L (4.20-5.50) X10*6/uL Hgb 12.8 (12.0-16.0) g/dl Hct 38.9 (37.0-47.0) % MCV 92.8 (80.0-98.0) fL MCH 30.5 (27.0-33.0) pg MCHC 32.9 (31.0-35.0) g/dl RDW 13.1 (11.0-16.0) % Plt Count 247 (160-400) X10*3/uL MPV 9.5 (9.4-12.3) fL Immature Gran % (Auto) 0.2 (0.0-0.4) % Neut % (Auto) 63.2 (45-73) % Lymph % (Auto) 24.5 (20-40) % [place] % (Auto) 10.9 (2-11) % Eos % (Auto) 1.0 (0-4) % Baso % (Auto) 0.2 (0-2) % Lymph # (Auto) 1.2 (1.2-4.9) X10*3/uL [place] # (Auto) 0.5 (0.1-1.2) X10*3/uL Eos # (Auto) 0.1 (0.0-0.4) X10*3/uL Baso # (Auto) 0.0 (0.0-0.2) X10*3/uL Abs Immat Gran (auto) 0.01 (0.00-0.03) X10*3/uL Absolute Neuts (auto) 3.06 (2.0-8.3) x10*3/uL Absolute Nucleated RBC 0.000 (0.0-0.012) X10*3/uL Nucleated RBC % (auto) 0.0 (0.0-0.2) /100WBC Sodium 143 (135-145) mmol/L Potassium 4.2 (3.3-5.1) mmol/L Chloride 107 (96-108) mmol/L Carbon Dioxide 29 (22-29) mmol/L Anion Gap 11 L (12-20) BUN 17 H (9-16) mg/dL Creatinine 0.81 (0.5-1.4) mg/dL Estim Creat Clear Calc 36.1 Estimated GFR > 60 Random Glucose 98 (60-115) mg/dL Calcium 10.2 (8.4-10.2) mg/dL Magnesium 1.9 (1.6-2.6) mg/dL Total Bilirubin 0.7 (0.0-1.0) mg/dL Direct Bilirubin 0.3 (0.0-0.5) mg/dL AST 18 (5-31) U/L ALT 18 (0-31) U/L Alkaline Phosphatase 115 D (39-117) U/L Troponin I High Sens 4.3 (<3.5-17.0) ng/L Total Protein 6.5 (6.5-8.0) g/dL Albumin 4.0 (3.5-5.0) g/dL Urine Color Urine Appearance Urine pH (5.0-8.0) Ur Specific [place] (1.005-1.025) Urine Protein (NEG-TRACE) MG/DL Urine Glucose (UA) (NEG) MG/DL Urine Ketones (NEG) MG/DL Urine Blood (NEG) Urine Nitrite (NEG) Ur Leukocyte Esterase (NEG) Urine RBC (0) /HPF Urine WBC (0-4) /HPF Ur Squamous Epith Cells /LPF Urine Bacteria /LPF COVID-19 ([place]) (Negative) COVID-19 Clin Com 02/21/21 02/21/21 Range/Units 16:34 16:46 WBC (4.8-10.8) X10*3/uL RBC (4.20-5.50) X10*6/uL Hgb (12.0-16.0) g/dl Hct (37.0-47.0) % MCV (80.0-98.0) fL MCH (27.0-33.0) pg MCHC (31.0-35.0) g/dl RDW (11.0-16.0) % Plt Count (160-400) X10*3/uL MPV (9.4-12.3) fL Immature Gran % (Auto) (0.0-0.4) % Neut % (Auto) (45-73) % Lymph % (Auto) (20-40) % [place] % (Auto) (2-11) % Eos % (Auto) (0-4) % Baso % (Auto) (0-2) % Lymph # (Auto) (1.2-4.9) X10*3/uL [place] # (Auto) (0.1-1.2) X10*3/uL Eos # (Auto) (0.0-0.4) X10*3/uL Baso # (Auto) (0.0-0.2) X10*3/uL Abs Immat Gran (auto) (0.00-0.03) X10*3/uL Absolute Neuts (auto) (2.0-8.3) x10*3/uL Absolute Nucleated RBC (0.0-0.012) X10*3/uL Nucleated RBC % (auto) (0.0-0.2) /100WBC Sodium (135-145) mmol/L Potassium (3.3-5.1) mmol/L Chloride (96-108) mmol/L Carbon Dioxide (22-29) mmol/L Anion Gap (12-20) BUN (9-16) mg/dL Creatinine (0.5-1.4) mg/dL Estim Creat Clear Calc Estimated GFR Random Glucose (60-115) mg/dL Calcium (8.4-10.2) mg/dL Magnesium (1.6-2.6) mg/dL Total Bilirubin (0.0-1.0) mg/dL Direct Bilirubin (0.0-0.5) mg/dL AST (5-31) U/L ALT (0-31) U/L Alkaline Phosphatase (39-117) U/L Troponin I High Sens (<3.5-17.0) ng/L Total Protein (6.5-8.0) g/dL Albumin (3.5-5.0) g/dL Urine Color YELLOW Urine Appearance CLEAR Urine pH 6.0 (5.0-8.0) Ur Specific [place] 1.010 (1.005-1.025) Urine Protein NEG (NEG-TRACE) MG/DL Urine Glucose (UA) NEG (NEG) MG/DL Urine Ketones NEG (NEG) MG/DL Urine Blood NEG (NEG) Urine Nitrite NEG (NEG) Ur Leukocyte Esterase TRACE H (NEG) Urine RBC 0-2 (0) /HPF Urine WBC 1-4 (0-4) /HPF Ur Squamous Epith Cells TRACE /LPF Urine Bacteria TRACE /LPF COVID-19 ([place]) Negative (Negative) COVID-19 Clin Com See Note Discharge Plan Discharge Clinical Impression: TIA (transient ischemic attack) Patient Disposition: Admitted As Inpatient Prescriptions: No Action amlodipine 2.5 mg tablet 2.5 mg PO DAILY 90 Days Qty: 90 RF: 3 losartan 100 mg tablet 100 mg PO DAILY 90 Days Qty: 90 RF: 3 tolterodine 4 mg capsule,extended release 24hr 4 mg PO DAILY 90 Days Qty: 90 RF: 2 hydrochlorothiazide 12.5 mg capsule 12.5 mg PO DAILY Qty: 90 RF: 3 simvastatin 20 mg tablet 20 mg PO BEDTIME Qty: 90 RF: 3 tiotropium bromide 18 mcg capsule, w/inhalation device 1 cap inhalation DAILY 90 Days Qty: 90 RF: 3 nitrofurantoin macrocrystal 100 mg capsule 1 cap PO BEDTIME RF: 0 lansoprazole 30 mg capsule,delayed release(DR/EC) 30 mg PO DAILY RF: 0 Prolia 60 mg/mL syringe 60 mg subcut [id number] RF: 0 glucosamine sulfate 1,000 mg capsule 1,000 mg PO DAILY RF: 0 multivitamin Tablet 1 tab PO DAILY RF: 0 ibuprofen [Advil] 200 mg tablet 200 mg PO Q6H PRNRF: 0 aspirin [Adult Aspirin Regimen] 81 mg tablet,delayed release (DR/EC) 81 mg PO DAILY RF: 0
--- NOTE | 2021-02-21 14:04 | ECG_ITS ---
Test Reason : hbp Blood Pressure : / mmHG Vent. Rate : 085 BPM Atrial Rate : 085 BPM P-R Int : 170 ms QRS Dur : 088 ms QT Int : 386 ms P-R-T Axes : -09 002 036 degrees QTc Int : 459 ms Normal sinus rhythm Intra-ventricular conduction delay Left axis deviation Abnormal ECG When compared with ECG of 28-JAN-2021 19:12, Questionable change in QRS axis Referred By: Calli Saha Electronically Signed By:RONA CORREA MD
[2021-02-21 14:45] LABS: MANUAL DIFF FLAG NO
[2021-02-21 14:47] LABS: Basophils Percent Auto 0.2 % (0-2); Eosinophils Absolute Auto 0.1 X10*3/uL (0.0-0.4); Hematocrit 38.9 % (37.0-47.0); Hemoglobin 12.8 g/dl (12.0-16.0); Imm Gran Abs Auto 0.01 X10*3/uL (0.00-0.03); Imm Gran Pct Auto 0.2 % (0.0-0.4); Lymphocytes Absolute Auto 1.2 X10*3/uL (1.2-4.9); Lymphocytes Percent Auto 24.5 % (20-40); Mean Corpuscular HGB Conc 32.9 g/dl (31.0-35.0); Mean Corpuscular Hemoglobin 30.5 pg (27.0-33.0); Mean Corpuscular Volume 92.8 fL (80.0-98.0); Mean Platelet Volume 9.5 fL (9.4-12.3); Monocytes Absolute Auto 0.5 X10*3/uL (0.1-1.2); Monocytes Percent Auto 10.9 % (2-11); Neutrophils Absolute Auto 3.06 x10*3/uL (2.0-8.3); Neutrophils Percent Auto 63.2 % (45-73); Platelet Count 247 X10*3/uL (160-400); Red Blood Count 4.19 X10*6/uL (4.20-5.50); Red Cell Distribution Width 13.1 % (11.0-16.0); White Blood Count 4.9 X10*3/uL (4.8-10.8)
[2021-02-21 14:58] VITALS: BP 196/83; PULSE 83
[2021-02-21] MEDS: amLODIPine Besylate 5 MG TABLET PO (14:58)
[2021-02-21 15:04] LABS: Alanine Aminotransferase 18 U/L (0-31); Alkaline Phosphatase 115 U/L (39-117); Anion Gap 11 (12-20); Aspartate Amino Transferase 18 U/L (5-31); Bilirubin Direct 0.3 mg/dL (0.0-0.5); Bilirubin Total 0.7 mg/dL (0.0-1.0); Blood Urea Nitrogen 17 mg/dL (9-16); Calcium 10.2 mg/dL (8.4-10.2); Carbon Dioxide 29 mmol/L (22-29); Chloride 107 mmol/L (96-108); Creatinine Clr Calc Pharmacy 36.1; Estimated Glomerular Filt Rate > 60; Glucose Random 98 mg/dL (60-115); Magnesium 1.9 mg/dL (1.6-2.6); Potassium 4.2 mmol/L (3.3-5.1); Sodium 143 mmol/L (135-145); Total Protein 6.5 g/dL (6.5-8.0)
[2021-02-21 15:11] LABS: Troponin-I High Sensitivity 4.3 ng/L (<3.5-17.0)
[2021-02-21 16:59] LABS: COVID-19 Test Negative (Negative)
[2021-02-21 17:02] LABS: Appearance Urine CLEAR; Color Urine YELLOW; Glucose Urine UA NEG (NEG); Leukocyte Esterase Urine TRACE (NEG); Nitrite Urine NEG (NEG); UACC Culture Trigger YES; Urine Blood NEG (NEG); Urine Ketones NEG (NEG); Urine Protein NEG (NEG-TRACE)
[2021-02-21 17:06] LABS: Bacteria Urine TRACE /LPF; RBC Urine 0-2 /HPF (0); Squamous Epithelial Cell Urine TRACE /LPF
[2021-02-21 17:13] VITALS: BP 149/77; PULSE 85; RESP 16; O2SAT 97
--- NOTE | 2021-02-21 17:14 | P.HPHOSP_ITS ---
History of Present Illness Date of Service: 02/21/21 Chief Complaint: blurry vision , left toe numbness 85-year-old female with past medical history COPD, hyperlipidemia, HTN, osteoporosis, presenting to the ED sent in from PT for elevated BP and blurry vision when went for Physiotherapy today. She has with recent diagnosis of CVA on 02/06 via MRI.? She says that since that time she has some left foot numbness which is unchanged.? Denies headache, chest pain, lightheadedness/dizziness, SOB, abdominal pain, na usea/vomiting, new numbness/tingling, fever/chills. blurry vision also improved as per patient Review of Systems Review of Systems: As above. Yes all other systems are reviewed and are negative [facility] Medical History COPD (chronic obstructive pulmonary disease) Dyslipidemia GERD (gastroesophageal reflux disease) Hearing loss History of ductal carcinoma in situ (DCIS) of breast Hypercalcemia Hypertension Left hip pain Left sided sciatica Left-sided weakness Multiple lacunar infarcts Osteoporosis Screening for breast cancer Urge urinary incontinence Family History Father Heart failure CVD (cardiovascular disease) Mother Breast cancer Pertinent family history: father -has rheumatic heart dis. Mother from old age. Surgical History H/O right inguinal hernia repair History of colonoscopy History of lumpectomy of right breast History of pubovaginal sling Social History Housing: Apartment Alcohol intake: current Alcohol intake frequency: does not drink Alcohol type: wine Patient Tobacco Use Status: Former Tobacco user Quit Date: 02/04/91 Tobacco use type: Cigarette e-Cigarette/Vaping Use: Never Used Second Hand Smoke Exposure: No Advance Directives: No Advance Directives Information Provided: No service: No Current occupational status: disabled Meds Allergies Allergy/AdvReac Type Severity Reaction Status Date / Time cephalexin [Keflex] Allergy Intermediate Unknown Verified 02/20/21 11:10 tetracycline [Tetracycline] Allergy Intermediate TONGUE Verified 02/20/21 11:10 SWOLLEN diphtheria,pertussis Allergy Mild Unknown Verified 02/20/21 11:10 (acell)amina Active Medications: Current Medications Aspirin (Aspirin Enteric Coated 81 Mg Tablet.) 81 mg PO ONCE ONE Stop: 02/21/21 17:14 Heparin Sodium (Porcine) (Heparin Sodium,Porcine 5,000 Unit/Ml Vial) 5,000 unit SUBCUT Q8H [facility] Pharmacy Consult (Consult Rx Perform Med Rec) 1 each MISCELLANE ONCE PRN PRN Reason: Consult order Sodium Chloride (0.9 % Sodium Chloride Flush 3 Ml Syringe) 3 ml IVFLUSH QSHIFT [facility] Home Medications Medication Instructions Recorded Confirmed Last Taken Type glucosamine sulfate 1,000 mg 1,000 mg PO DAILY cap 02/08/20 02/21/21 02/21/21 History capsule multivitamin 1 tab PO DAILY 02/08/20 02/21/21 02/21/21 History aspirin 81 mg tablet,delayed 81 mg PO DAILY 02/24/20 02/21/21 02/21/21 History release (Adult Aspirin Regimen) denosumab 60 mg/mL subcutaneous 60 mg SUBCUT [id number] 05/16/20 02/21/21 09/04/20 History syringe (Prolia) lansoprazole 30 mg capsule,delayed 30 mg PO DAILY cap 05/16/20 02/21/21 02/21/21 History release acetaminophen 325 mg tablet 650 mg PO Q6H PRN 02/21/21 02/21/21 Unknown History nitrofurantoin macrocrystal 100 mg 1 cap PO BEDTIME 02/21/21 02/21/21 02/20/21 History capsule Physical Exam Vital Signs and Narrative: Vital Signs: Last Vital Signs Temp 97.7 F 02/21/21 12:15 Pulse 83 02/21/21 14:58 Resp 18 02/21/21 13:53 BP 196/83 H 02/21/21 14:58 Pulse Ox 99 02/21/21 13:53 Body Mass Index 26.2 Physical exam: Appearance: Alert.? Oriented X3.?? Eyes: Pupils equal, round and reactive to light.? Sclera nonicteric.? ENT: Pharynx normal.? Moist mucous membranes. cvs: rrr, [id number] , no murmur res: clear to auscultation ,no rhonchii or wheezing abd: no rebound or guarding ,nt, bs present. ext pulses present , no cyanosis ,Gait well balanced well coordinated. neuro: eomi perrla, cn 2-12 intact,axo3 , moves adelita xt ,s ensation intact even on left foot sensation mostly intact , mild numbness Results Labs CBC and Chem 7: 02/21/21 14:37 02/21/21 14:37 Labs: Laboratory Results - last 24 hr 02/21/21 02/21/21 02/21/21 14:37 14:37 14:37 MCV 92.8 MCH 30.5 MCHC 32.9 RDW 13.1 Plt Count 247 MPV 9.5 Immature Gran % (Auto) 0.2 Neut % (Auto) 63.2 Lymph % (Auto) 24.5 [place] % (Auto) 10.9 Eos % (Auto) 1.0 Baso % (Auto) 0.2 Lymph # (Auto) 1.2 [place] # (Auto) 0.5 Eos # (Auto) 0.1 Baso # (Auto) 0.0 Abs Immat Gran (auto) 0.01 Absolute Neuts (auto) 3.06 Absolute Nucleated RBC 0.000 Nucleated RBC % (auto) 0.0 Anion Gap 11 L Estim Creat Clear Calc 36.1 Estimated GFR > 60 Random Glucose 98 Calcium 10.2 Magnesium 1.9 Total Bilirubin 0.7 Direct Bilirubin 0.3 AST 18 ALT 18 Alkaline Phosphatase 115 D Troponin I High Sens 4.3 Total Protein 6.5 Albumin 4.0 Urine Color Urine Appearance Urine pH Ur Specific [place] Urine Protein Urine Glucose (UA) Urine Ketones Urine Blood Urine Nitrite Ur Leukocyte Esterase Urine RBC Urine WBC Ur Squamous Epith Cells Urine Bacteria COVID-19 ([place]) COVID-19 Clin Com 02/21/21 02/21/21 16:34 16:46 MCV MCH MCHC RDW Plt Count MPV Immature Gran % (Auto) Neut % (Auto) Lymph % (Auto) [place] % (Auto) Eos % (Auto) Baso % (Auto) Lymph # (Auto) [place] # (Auto) Eos # (Auto) Baso # (Auto) Abs Immat Gran (auto) Absolute Neuts (auto) Absolute Nucleated RBC Nucleated RBC % (auto) Anion Gap Estim Creat Clear Calc Estimated GFR Random Glucose Calcium Magnesium Total Bilirubin Direct Bilirubin AST ALT Alkaline Phosphatase Troponin I High Sens Total Protein Albumin Urine Color YELLOW Urine Appearance CLEAR Urine pH 6.0 Ur Specific [place] 1.010 Urine Protein NEG Urine Glucose (UA) NEG Urine Ketones NEG Urine Blood NEG Urine Nitrite NEG Ur Leukocyte Esterase TRACE H Urine RBC 0-2 Urine WBC 1-4 Ur Squamous Epith Cells TRACE Urine Bacteria TRACE COVID-19 ([place]) Negative COVID-19 Clin Com See Note Imaging Radiologist's Impressions: Impressions Head CT 02/21/21 14:05 IMPRESSION: No acute intracranial pathology. 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 Cerebral atrophy. Assessment and Plan (1) TIA (transient ischemic attack): Status: Acute (2) Uncontrolled hypertension: Status: Acute 85-year-old female with past medical history COPD, hyperlipidemia, HTN, osteoporosis came with uncontroled htn , tia. 1. Tia: Lab imaging and EKG reviewed personally and interpreted. Cbc seems fine, BUN 17 creatinine 0.8 , EKG NSR. has MRI ON 02/08 -?Late acute to early subacute infarct of the posterior limb of the right internal capsule. Blurred vision seems to be improved Left foot numbness also improving? Two weeks duration. moniter on tele , neurochecks Continue aspirin, statin, lipid panel in the morning. neuro eval 2. Uncontrolled hypertension: Given amlodipine in the emergency room Monitor blood pressure closely, continue home medication including amlodipine and hydrochlorothiazide. 3. History of COPD: Continue home medications. 4. HLP: continue statins 5.Gerd: CONTINUE PPI. dvt prophylax: s/c heparin Quality Stroke Does the patient have a stroke diagnosis?: No VTE Prior VTE?: No VTE Risk Level:: Medical - moderate - high VTE Device Contraindication: N/A - Device Ordered VTE Drug Contraindication: N/A - Med Ordered
--- NOTE | 2021-02-21 17:40 | PHA.MEDREC ---
Pharmacy Consult ? Medication Reconciliation Pharmacy has completed the medication reconciliation. There are no remarkable issues for provider's attention. Patient is due for denusomab next week. Marilu Sarah, PharmD
[2021-02-21] MEDS: Heparin Sodium,Porcine 5,000 UNIT/ML VIAL 5000 UNIT SUBCUT (17:58)
[2021-02-21] MEDS: Aspirin Enteric Coated 81 MG TABLET.DR PO (17:59)
[2021-02-21 18:03] VITALS: BP 167/62; PULSE 84; RESP 19; O2SAT 98
[2021-02-21 19:57] VITALS: BP 139/68; PULSE 91; RESP 16; TEMP 36.7; O2SAT 96
[2021-02-21] MEDS: Atorvastatin Calcium 10 MG TABLET PO (20:06)
[2021-02-21] MEDS: nitrofurantoin macrocrystaL 50 MG CAPSULE 100 MG PO (20:36)
[2021-02-22] VITALS (12 sets, daily range): BP systolic 119–184; BP diastolic 58–99; PULSE 58–79; RESP 16–20; TEMP 36–37.6; O2SAT 94–99; BMI 24.9
[2021-02-22] MEDS: Heparin Sodium,Porcine 5,000 UNIT/ML VIAL 5000 UNIT SUBCUT ×3 (01:01→17:16)
[2021-02-22] MEDS: Omeprazole 20 MG CAPSULE.DR PO (06:02)
[2021-02-22 08:43] LABS: Cholesterol 155 mg/dL; HDL Cholesterol 58 mg/dL; LDL Cholesterol Calculated 76 mg/dl; Triglycerides 106 mg/dL
--- NOTE | 2021-02-22 09:28 | MHC.CM.PN ---
PT REPORTS SHE LIVES ALONE AND IS INDEPENDENT WITH CARE PT DENIES USE OF DME OR IN HOME SERVICES PT REPORTS HER PCP IS GRACIELA STOVALL PT STATES HER HCP IS HER SISTER JANE-COPY REQUESTED OBS NOTICE DELIVERED CURRENT DC PLAN IS HOME WITH HOME WITH [facility] SISTER TO TRANSPORT
[2021-02-22] MEDS: 0.9 % Sodium Chloride Flush 3 ML SYRINGE IVFLUSH ×3 (09:43→21:43)
[2021-02-22] MEDS: hydroCHLOROthiazide 12.5 MG TABLET PO (09:43)
[2021-02-22] MEDS: Losartan Potassium 50 MG TABLET 100 MG PO (09:44)
[2021-02-22] MEDS: Aspirin Enteric Coated 81 MG TABLET.DR PO (09:44)
[2021-02-22] MEDS: Multivitamin TABLET 1 TAB PO (09:44)
[2021-02-22] MEDS: amLODIPine Besylate 5 MG TABLET PO (09:44)
[2021-02-22] MEDS: Tolterodine Tartrate LA 4 MG CAP.ER.24H PO (09:44)
--- NOTE | 2021-02-22 11:29 | MHC.STROKE ---
I MET WITH THE PATIENT TODAY TO PROVIDE STROKE EDUCATION. SHE HAD A RECENT STROKE FROM 01/28/21 ( ACCORDING TO HER) CONFIRMED BY MRI ON 02/06/21. AT THAT TIME SHE HAD LEFT SIDED WEAKNESS/NUMBNESS WHICH CORRELATES WITH MRI RESULTS, STROKE ON THE RIGHT. WE REVIEWED HER BP MEDICATION AND READINGS, SHE DOES HAVE ELEVATED BP AND WAS INSTRUCTED BY HER PCP TO TAKE HER BP 3 TIMES A WEEK. I DID EXPLAIN WHY THIS WAS IMPORTANT AND HOW THE HIGH CAUSES A STROKE. I GAVE HER A BP CHART FOR HER TO DOCUMENT HER READINGS AT HOME AND RELAY THE RESULTS TO HER PCP. I GAVE HER A SCREENSHOT OF THE MRI FROM 02/06/21 AND REVIEWED THE LOCATION OF THE STROKE. I ALSO SHOWED HER THE MICROVASCULAR DISEASE ON THE T2 FLAIR IMAGE. SHE IS VERY GOOD COMPLIANT ABOUT TAKING HER MEDICATIONS, SHE HAS A BP CUFF AT HOME. SHE LIVES IN HER OWN HOME, SHE STILL DRIVES, SHE COME TO [facility]. I DID REVIEW THE STROKE EDUCATION BOOKLET AND [id number] HER TO ATTEND THE STROKE SUPPORT GROUP AT THE [facility] EVERY FRIDAY. HER NIHSS = 0. I ANSWERED ALL OF HER QUESTIONS. SHE WAS GOING TOHAVE AN ECHOCARDIOGRAM SCHEDULED AN OUTPATIENT AND SHE MAY HAVE THAT DONE DURING THIS HOSPITALIZATION. I WILL CONTINUE TO FOLLOW.
--- NOTE | 2021-02-22 13:56 | P.PNIM_ITS ---
Subjective Subjective Date of Service: 02/22/21 Interval History: uncontrolled htn , tia Review of Systems Denies any new complaint of chest pain or shortness of breath or abdominal pain or fever or chills or nausea or vomiting Denies any cough Denies any weakness . seems anxious whenever thinks about stroke. Physical Exam Vital Signs: Vital Signs: Last Vital Signs Temp 97.6 F 02/22/21 12:11 Pulse 64 02/22/21 12:11 Resp 20 02/22/21 12:11 BP 174/77 H 02/22/21 12:11 Pulse Ox 98 02/22/21 12:11 Body Mass Index 24.9 Appearance: Alert.? Oriented X3.?? Eyes: Pupils equal, round and reactive to light.? Sclera nonicteric.? ENT: Pharynx normal.? Moist mucous membranes. cvs: rrr, [id number] , no murmur res: clear to auscultation ,no rhonchii or wheezing abd: no rebound or guarding ,nt, bs present. ext pulses present , no cyanosis . neuro: eomi perrla, cn 2-12 intact,axo3 , moves adelita xt ,s ensation intact? even on left foot sensation mostly intact , mild numbness Objective Data Active Medications Acetaminophen (Acetaminophen 325 Mg Tablet) 650 mg PO Q6H PRN PRN Reason: Pain Amlodipine Besylate (Amlodipine Besylate 5 Mg Tablet) 5 mg PO DAILY [facility]; Protocol Last Admin: 02/22/21 09:44 Dose: 5 mg Documented by: ALISA Aspirin (Aspirin Enteric Coated 81 Mg Tablet.) 81 mg PO DAILY [facility] Last Admin: 02/22/21 09:44 Dose: 81 mg Documented by: ALISA Atorvastatin Calcium (Atorvastatin Calcium 10 Mg Tablet) 10 mg PO BEDTIME [facility] Last Admin: 02/21/21 20:06 Dose: 10 mg Documented by: JOSH Heparin Sodium (Porcine) (Heparin Sodium,Porcine 5,000 Unit/Ml Vial) 5,000 unit SUBCUT Q8H [facility] Last Admin: 02/22/21 09:44 Dose: 5,000 unit Documented by: ALISA Hydrochlorothiazide (Hydrochlorothiazide 25 Mg Tablet) 25 mg PO DAILY [facility]; Protocol Losartan Potassium (Losartan Potassium 50 Mg Tablet) 100 mg PO DAILY [facility]; Protocol Last Admin: 02/22/21 09:44 Dose: 100 mg Documented by: ALISA Multivitamins/Vitamin C (Multivitamin Tablet) 1 tab PO DAILY [facility] Last Admin: 02/22/21 09:44 Dose: 1 tab Documented by: ALISA Nitrofurantoin Macrocrystals (Nitrofurantoin Macrocrystal 50 Mg Capsule) 100 mg PO BEDTIME [facility] Last Admin: 02/21/21 20:36 Dose: 100 mg Documented by: PEGGY Omeprazole (Omeprazole 20 Mg Capsule.Dr) 20 mg PO DAILY@0630 [facility] Last Admin: 02/22/21 06:02 Dose: 20 mg Documented by: JORGITO Pharmacy Consult (Consult Rx Perform Med Rec) 1 each MISCELLANE ONCE PRN PRN Reason: Consult order Sodium Chloride (0.9 % Sodium Chloride Flush 3 Ml Syringe) 3 ml IVFLUSH QSHIFT [facility] Last Admin: 02/22/21 09:43 Dose: 3 ml Documented by: ALISA Tiotropium [place] (Tiotropium [place] 18 Mcg Cap.W.Dev) 1 puff INHALE RDAILY [facility] Last Admin: 02/22/21 11:42 Dose: 1 puff Documented by: MAN Tolterodine Tartrate (Tolterodine Tartrate La 4 Mg Cap.Er.24h) 4 mg PO DAILY [facility] Last Admin: 02/22/21 09:44 Dose: 4 mg Documented by: ALISA Labs CBC & Chem 7: 02/21/21 14:37 02/21/21 14:37 Labs: Laboratory Results - last 24 hr 02/21/21 02/21/21 02/21/21 14:37 14:37 14:37 MCV 92.8 MCH 30.5 MCHC 32.9 RDW 13.1 Plt Count 247 MPV 9.5 Immature Gran % (Auto) 0.2 Neut % (Auto) 63.2 Lymph % (Auto) 24.5 [place] % (Auto) 10.9 Eos % (Auto) 1.0 Baso % (Auto) 0.2 Lymph # (Auto) 1.2 [place] # (Auto) 0.5 Eos # (Auto) 0.1 Baso # (Auto) 0.0 Abs Immat Gran (auto) 0.01 Absolute Neuts (auto) 3.06 Absolute Nucleated RBC 0.000 Nucleated RBC % (auto) 0.0 Anion Gap 11 L Estim Creat Clear Calc 36.1 Estimated GFR > 60 Random Glucose 98 Calcium 10.2 Magnesium 1.9 Total Bilirubin 0.7 Direct Bilirubin 0.3 AST 18 ALT 18 Alkaline Phosphatase 115 D Troponin I High Sens 4.3 Total Protein 6.5 Albumin 4.0 Triglycerides Cholesterol LDL Cholesterol, Calc HDL Cholesterol Urine Color Urine Appearance Urine pH Ur Specific [place] Urine Protein Urine Glucose (UA) Urine Ketones Urine Blood Urine Nitrite Ur Leukocyte Esterase Urine RBC Urine WBC Ur Squamous Epith Cells Urine Bacteria COVID-19 ([place]) COVID-19 Clin Com 02/21/21 02/21/21 02/22/21 16:34 16:46 07:29 MCV MCH MCHC RDW Plt Count MPV Immature Gran % (Auto) Neut % (Auto) Lymph % (Auto) [place] % (Auto) Eos % (Auto) Baso % (Auto) Lymph # (Auto) [place] # (Auto) Eos # (Auto) Baso # (Auto) Abs Immat Gran (auto) Absolute Neuts (auto) Absolute Nucleated RBC Nucleated RBC % (auto) Anion Gap Estim Creat Clear Calc Estimated GFR Random Glucose Calcium Magnesium Total Bilirubin Direct Bilirubin AST ALT Alkaline Phosphatase Troponin I High Sens Total Protein Albumin Triglycerides 106 Cholesterol 155 LDL Cholesterol, Calc 76 HDL Cholesterol 58 Urine Color YELLOW Urine Appearance CLEAR Urine pH 6.0 Ur Specific [place] 1.010 Urine Protein NEG Urine Glucose (UA) NEG Urine Ketones NEG Urine Blood NEG Urine Nitrite NEG Ur Leukocyte Esterase TRACE H Urine RBC 0-2 Urine WBC 1-4 Ur Squamous Epith Cells TRACE Urine Bacteria TRACE COVID-19 ([place]) Negative COVID-19 Clin Com See Note Microbiology Microbiology Results: Microbiology 02/21/21 16:26 Urine Culture - Preliminary Urine clean catch - Urine rossi top No growth to date. Assessment and Plan (1) TIA (transient ischemic attack): Status: Acute (2) Uncontrolled hypertension: Status: Acute Assessment and Plan: 85-year-old female with past medical history COPD, hyperlipidemia, HTN, osteoporosis came with uncontroled htn , tia. 1. Tia: has MRI ON 02/08 -?Late acute to early subacute infarct of the posterior limb of the right internal capsule. Blurred vision seems to be improved Left foot numbness also improving?? Two weeks duration. moniter on [facility] lipid panel-ldl: 76 , hdl : 58 Continue aspirin, statin, pt eval noted -home vs outpatient pt. neuro eval noted -moniter for better blood pressure control. 2. Uncontrolled hypertension: Monitor blood pressure closely, continue home medication adjusted amlodipine and hydrochlorothiazide, cotninue losartan. 3. History of COPD:? Continue home medications. 4. HLP: continue statins 5.Gerd: continue PPI. dvt prophylax: s/c heparin Quality Stroke Does the patient have a stroke diagnosis?: No VTE Prior VTE?: No VTE Risk Level:: Medical - moderate - high VTE Device Contraindication: N/A - Device Ordered VTE Drug Contraindication: N/A - Med Ordered
--- NOTE | 2021-02-22 17:13 | P.CNNE_ITS ---
History of Present Illness Data of Consult Service Date: 02/22/21 Primary Care Provider: Shirin Duron MD HPI Reason for consult: Left foot numbness This is a 85-year-old woman with a history of poorly controlled hypertension, multiple lacunar infarcts that have been asymptomatic and some left-sided sciatica who had a stroke in the right and deep white matter adjacent to the anterior internal capsule in January and didn't have many symptoms from it. She is admitted again for poorly controlled blood pressure and had an episode where she woke up with the left foot that was numb, which has since gone away and could have been just from local nerve compression. She now feels back to her normal self has no headache or dizziness no numbness or weakness and walks around the room normally. Review of Systems Review of Systems: Denies any new complaint of chest pain or shortness of breath or abdominal pain or fever or chills or nausea or vomiting Denies any cough Denies any weakness . seems anxious whenever thinks about stroke. Yes all other systems are reviewed and are negative Neurologic: Denies Abnormal speech present [facility] Past Medical History Medical History COPD (chronic obstructive pulmonary disease) Dyslipidemia GERD (gastroesophageal reflux disease) Hearing loss History of ductal carcinoma in situ (DCIS) of breast Hypercalcemia Hypertension Left hip pain Left sided sciatica Left-sided weakness Multiple lacunar infarcts Osteoporosis Screening for breast cancer Urge urinary incontinence Family History Family History Father Heart failure CVD (cardiovascular disease) Mother Breast cancer Pertinent family history: father -has rheumatic heart dis. Mother from old age. Surgical History Surgical History H/O right inguinal hernia repair History of colonoscopy History of lumpectomy of right breast History of pubovaginal sling Social History Social History Household Members: None Housing: House Do you presently have visiting nurse or other home services: No Alcohol intake: current Alcohol intake frequency: does not drink Alcohol type: wine Patient Tobacco Use Status: Former Tobacco user Quit Date: 02/04/91 Tobacco use type: Cigarette e-Cigarette/Vaping Use: Never Used Second Hand Smoke Exposure: No service: No Current occupational status: retired Meds Allergies Allergy/AdvReac Type Severity Reaction Status Date / Time cephalexin [Keflex] Allergy Intermediate Unknown Verified 02/20/21 11:10 tetracycline [Tetracycline] Allergy Intermediate TONGUE Verified 02/20/21 11:10 SWOLLEN diphtheria,pertussis Allergy Mild Unknown Verified 02/20/21 11:10 (acell),tetanu Active Medications: Current Medications Acetaminophen (Acetaminophen 325 Mg Tablet) 650 mg PO Q6H PRN PRN Reason: Pain Amlodipine Besylate (Amlodipine Besylate 5 Mg Tablet) 5 mg PO DAILY [facility]; Protocol Last Admin: 02/22/21 09:44 Dose: 5 mg Documented by: Aspirin (Aspirin Enteric Coated 81 Mg Tablet.) 81 mg PO DAILY [facility] Last Admin: 02/22/21 09:44 Dose: 81 mg Documented by: Atorvastatin Calcium (Atorvastatin Calcium 10 Mg Tablet) 10 mg PO BEDTIME [facility] Last Admin: 02/21/21 20:06 Dose: 10 mg Documented by: Heparin Sodium (Porcine) (Heparin Sodium,Porcine 5,000 Unit/Ml Vial) 5,000 unit SUBCUT Q8H [facility] Last Admin: 02/22/21 09:44 Dose: 5,000 unit Documented by: Hydrochlorothiazide (Hydrochlorothiazide 12.5 Mg Tablet) 12.5 mg PO DAILY [facility]; Protocol Losartan Potassium (Losartan Potassium 50 Mg Tablet) 100 mg PO DAILY [facility]; Protocol Last Admin: 02/22/21 09:44 Dose: 100 mg Documented by: Multivitamins/Vitamin C (Multivitamin Tablet) 1 tab PO DAILY [facility] Last Admin: 02/22/21 09:44 Dose: 1 tab Documented by: Nitrofurantoin Macrocrystals (Nitrofurantoin Macrocrystal 50 Mg Capsule) 100 mg PO BEDTIME [facility] Last Admin: 02/21/21 20:36 Dose: 100 mg Documented by: Omeprazole (Omeprazole 20 Mg Capsule.) 20 mg PO DAILY@0630 [facility] Last Admin: 02/22/21 06:02 Dose: 20 mg Documented by: Pharmacy Consult (Consult Rx Perform Med Rec) 1 each MISCELLANE ONCE PRN PRN Reason: Consult order Sodium Chloride (0.9 % Sodium Chloride Flush 3 Ml Syringe) 3 ml IVFLUSH QSHIFT [facility] Last Admin: 02/22/21 09:43 Dose: 3 ml Documented by: Tiotropium Lenore (Tiotropium [place] 18 Mcg Cap.W.Dev) 1 puff INHALE RDAILY [facility] Last Admin: 02/22/21 11:42 Dose: 1 puff Documented by: Tolterodine Tartrate (Tolterodine Tartrate La 4 Mg Cap.Er.24h) 4 mg PO DAILY [facility] Last Admin: 02/22/21 09:44 Dose: 4 mg Documented by: Home Medications Medication Instructions Recorded Confirmed Last Taken Type glucosamine sulfate 1,000 mg 1,000 mg PO DAILY cap 02/08/20 02/21/21 02/21/21 History capsule multivitamin 1 tab PO DAILY 02/08/20 02/21/21 02/21/21 History aspirin 81 mg tablet,delayed 81 mg PO DAILY 02/24/20 02/21/21 02/21/21 History release (Adult Aspirin Regimen) denosumab 60 mg/mL subcutaneous 60 mg SUBCUT [id number] 05/16/20 02/21/21 09/04/20 History syringe (Prolia) lansoprazole 30 mg capsule,delayed 30 mg PO DAILY cap 05/16/20 02/21/21 02/21/21 History release acetaminophen 325 mg tablet 650 mg PO Q6H PRN 02/21/21 02/21/21 Unknown History nitrofurantoin macrocrystal 100 mg 1 cap PO BEDTIME 02/21/21 02/21/21 02/20/21 History capsule Physical Exam Vital Signs: Vital Signs: Last Vital Signs Temp 98.4 F 02/22/21 15:43 Pulse 63 02/22/21 15:43 Resp 16 02/22/21 15:43 BP 119/59 L 02/22/21 15:43 Pulse Ox 97 02/22/21 15:43 Body Mass Index 24.9 Const: General: cooperative, healthy appearing and no acute distress Orientation/consciousness: patient oriented x3 Limitations: no limitations HENMT: Head: Yes normal to inspection Ears: hearing grossly normal b ilaterally General nose exam: Normal external nose present Face and sinus: Yes normal facial exam Eyes: General: appearance normal, both eyes and all related structures Pupils: Equal, round and reactive pupils present EOM: EOMs intact bilaterally Neck: Neck: Yes normal visual inspection and Yes no meningeal signs Resp: Effort & Inspection: normal respiratory effort Auscultation: clear to auscultation bilaterally, no rales, no rhonchi and no wheezes Cardio: Rate: regular rate Heart sounds: S1 normal heart sound present and S2 normal heart sound present GI: Inspection: Yes normal to inspection Palpation (GI): Soft to palpation, nontender, no guarding and not rigid Skin: Rashes: no rashes Wounds: no wounds Neuro: Other: Slight asymmetry of the face with slight drooping of the left angle of the mouth. 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 Otherwise normal exam General: patient oriented x3, gait normal, tone normal, moves all extremities, no meningeal signs and no focal motor deficits Cranial nerves: Yes CN's II- XII intact bilaterally, Yes Equal, round and reactive pupils present and Yes Bilaterally intact EOM present Cognition (Neuro): normal cognition Speech: No Abnormal speech present Gait exam (Neuro): Normal gait present Motor exam (neuro): 5/5 motor strength present throughout, Pronator motor function not present and no tremor noted Coordination: [id number] test normal Romberg Test: Negative Extrem: General: Yes normal to inspection, Yes no pedal edema and Yes no calf tenderness Results Labs CBC & Chem 7: 02/21/21 14:37 02/21/21 14:37 Microbiology Microbiology Results: Microbiology 02/21/21 16:26 Urine clean catch - Urine rossi top Urine Culture - Preliminary No growth to date. Assessment and Plan (1) TIA (transient ischemic attack): Status: Acute The patient had a recent small vessel lacunar infarct in the right anterior and till capsular area. The transient numbness in the foot it would have been a local nerve compression. She's had a complete stroke workup. Recommendation would be to try and control the blood pressure to reduce chances of future small vessel disease. She is very complete recovery. (2) Uncontrolled hypertension: Status: Acute 85-year-old female with past medical history COPD, hyperlipidemia, HTN, osteoporosis came with uncontroled htn , tia. 1. Tia: has MRI ON 02/08 -?Late acute to early subacute infarct of the posterior limb of the right internal capsule. Blurred vision seems to be improved Left foot numbness also improving?? Two weeks duration. moniter on [facility] lipid panel-ldl: 76 , hdl : 58 Continue aspirin, statin, neuro eval 2. Uncontrolled hypertension: Monitor blood pressure closely, continue home medication adjusted amlodipine and hydrochlorothiazide, cotninue losartan. 3. History of COPD:? Continue home medications. 4. HLP: continue statins 5.Gerd: continue PPI. dvt prophylax: s/c heparin Procedures Date of Service Date of Service: 02/22/21
--- NOTE | 2021-02-22 19:23 | MHC.CARE ---
CARE Team met with pt in room 446-1. She was alert and orientated. She denies any psychiatric history and declined outpatient resources.
[2021-02-22] MEDS: nitrofurantoin macrocrystaL 50 MG CAPSULE 100 MG PO (21:43)
[2021-02-22] MEDS: Atorvastatin Calcium 10 MG TABLET PO (21:43)
[2021-02-23 03:08] VITALS: BP 134/61; PULSE 65; RESP 18; TEMP 36.1; O2SAT 94
[2021-02-23] MEDS: Heparin Sodium,Porcine 5,000 UNIT/ML VIAL 5000 UNIT SUBCUT ×2 (03:33→08:58)
[2021-02-23] MEDS: Omeprazole 20 MG CAPSULE.DR PO (06:11)
[2021-02-23 07:34] VITALS: BP 125/58; PULSE 66; RESP 18; TEMP 36.4; O2SAT 96
[2021-02-23 07:59] VITALS: PULSE 68; O2SAT 95
[2021-02-23 08:46] VITALS: BP 125/58; PULSE 66; O2SAT 96
[2021-02-23 08:57] VITALS: BP 125/58
[2021-02-23] MEDS: Losartan Potassium 50 MG TABLET 100 MG PO (08:57)
[2021-02-23] MEDS: Multivitamin TABLET 1 TAB PO (08:57)
[2021-02-23] MEDS: hydroCHLOROthiazide 12.5 MG TABLET PO (08:57)
[2021-02-23] MEDS: Tolterodine Tartrate LA 4 MG CAP.ER.24H PO (08:57)
[2021-02-23] MEDS: 0.9 % Sodium Chloride Flush 3 ML SYRINGE IVFLUSH (08:58)
[2021-02-23] MEDS: Aspirin Enteric Coated 81 MG TABLET.DR PO (08:58)
[2021-02-23] MEDS: amLODIPine Besylate 5 MG TABLET PO (08:58)
--- NOTE | 2021-02-23 10:03 | PM.DS ---
DS: Providers Provider Date of Service: 02/23/21 Date of admission: 02/21/21 17:10 Primary care physician: Shirin Duron MD Consults: 02/21/21 17:07 Consult to Neurology Routine Consulting Provider: [facility] Reason for consultation: tia Has provider been notified: No 02/22/21 13:55 Consult to Care Team Routine Comment: Reason for consultation: anxiety 02/23/21 09:13 Consult to Nephrology Routine Consulting Provider: Ayaan Lott Reason for consultation: htn , flacutating bp Has provider been notified: No DS: Diagnosis Discharge Diagnosis (1) TIA (transient ischemic attack): Status: Acute (2) Uncontrolled hypertension: Status: Acute DS: Summary Hospital Course Hospital Course: 85-year-old female with past medical history COPD, hyperlipidemia, HTN, osteoporosis, presenting to the ED sent in from PT for elevated BP and blurry vision when went for Physiotherapy today. She has with recent diagnosis of CVA on 02/06 via MRI.? She says that since that time she has some left foot numbness which is unchanged.? Denies headache, chest pain, lightheadedness/dizziness, SOB, abdominal pain, nausea/vomiting, new numbness/tingling, fever/chills. blurry vision also improved as per patient Hospital course: Patient came to the hospital because Patient came to the hospital because of possible TIA vs transient numbness in the foot it would have been a local nerve compression, Which is resolved spontaneously. seen by neuro:The patient had a recent small vessel lacunar infarct in the right anterior and till capsular area.? The transient numbness in the foot it would have been a local nerve compression.? She's had a complete stroke workup.? Recommendation would be to try and control the blood pressure to reduce chances of future small vessel disease.? She is very complete recovery. Hypertension: Seen by Nephrology Recommended: Amlodipine adjusted to 5 mg, continue home dose of losartan, hydrochlorothiazide. Above management discussed with the patient in detail length she understand and in agreement with the above plan, time spent 50 minutes and 50% time spent on counseling. Significant findings: As above. Procedures performed: None. Treatment and response: As above. Complications: None. Time Spent with Patient Time attestation: Total time spent providing and/or coordinating discharge services: Discharge coordination time: Greater than 30 minutes Quality: Stroke Does the patient have a stroke diagnosis?: No Physical Exam Vital Signs: Vital Signs: Last Vital Signs Temp 97.6 F 02/23/21 07:34 Pulse 66 02/23/21 08:46 Resp 18 02/23/21 07:34 BP 125/58 L 02/23/21 08:57 Pulse Ox 96 02/23/21 08:46 Body Mass Index 24.9 Appearance: Alert.? Oriented X3.?? Eyes: Pupils equal, round and reactive to light.? Sclera nonicteric.? ENT: Pharynx normal.? Moist mucous membranes. cvs: rrr, [id number] , no murmur res: clear to auscultation ,no rhonchii or wheezing abd: no rebound or guarding ,nt, bs present. ext pulses present , no cyanosis . neuro: Alert oriented x3, nonfocal, follows commands Discharge Plan Discharge Patient Disposition: Home, Self-Care Discharge Diagnosis: htn , tia Referrals: Evelio COLVIN [Outside] - 1 Week Shirin Magana MD [Primary Care Provider] - 1 Week Discharge Medications: Continued losartan 100 mg tablet 100 mg PO DAILY 90 Days Qty: 90 RF: 3 tolterodine 4 mg capsule,extended release 24hr 4 mg PO DAILY 90 Days Qty: 90 RF: 2 hydrochlorothiazide 12.5 mg capsule 12.5 mg PO DAILY Qty: 90 RF: 3 simvastatin 20 mg tablet 20 mg PO BEDTIME Qty: 90 RF: 3 tiotropium bromide 18 mcg capsule, w/inhalation device 1 cap inhalation DAILY 90 Days Qty: 90 RF: 3 nitrofurantoin macrocrystal 100 mg capsule 1 cap PO BEDTIME RF: 0 acetaminophen 325 mg Tablet 650 mg PO Q6H PRN (Reason: Pain) RF: 0 lansoprazole 30 mg capsule,delayed release(DR/EC) 30 mg PO DAILY RF: 0 Prolia 60 mg/mL syringe 60 mg subcut [id number] RF: 0 glucosamine sulfate 1,000 mg capsule 1,000 mg PO DAILY RF: 0 multivitamin Tablet 1 tab PO DAILY RF: 0 aspirin [Adult Aspirin Regimen] 81 mg tablet,delayed release (DR/EC) 81 mg PO DAILY RF: 0 Changed amlodipine 2.5 mg tablet 5 mg PO DAILY 90 Days Qty: 180 RF: 3 Discharge Orders: Discharge Order (Routine); Ordered 02/23/21 Ordered By: Jacquie Servin Diet: low fat, low cholesterol and low salt diet Activity on Discharge: As tolerated Stand Alone Forms: Patient Portal Discharge page Care Plan Goals: Patient came to the hospital because of possible TIA vs transient numbness in the foot it would have been a local nerve compression : Which is resolved spontaneously. Seen by recommended continue current management with aspirin statin, blood pressure control zavala-continue home medications(blood pressure is fluctuating) Nephro recommended to continue currently as adjusted regimen blood pressure zavala above. Health Concerns: As above. Plan of Treatment: As above. Assessment: As above.
--- NOTE | 2021-02-23 11:18 | P.F2F_ITS ---
Service Date Service Date: 02/23/21 Encounter Date of encounter: 02/23/21 Encounter: htn , tia vs local nerve compression. Reasons for Services Reason for intermediate: CV/CP assess and/or care, neurological assessment, medication management and teach disease management Homebound: Leaving the home is medically contraindicated at this time without the asist of a device and/or another person due th the listed conditions above and below. Homebound supporting statement: Patient is generalized weak, has fluctuating blood pressure, recent small vessel lacunar infarct. It helps with appointment and blood pressure monitoring. Certification: Based on the above findings, I certify that this patient is confined to the home and needs intermittent intermediate care, physical therapy and/or speech therapy, or continues to need occupational therapy. The patient is under my care, and I have initiated the establishment of the plan of care. The patient will be followed by a physician who will periodically review the plan of care.
[2021-02-23 12:00] VITALS: BP 158/87; PULSE 68; RESP 18; TEMP 36.6; O2SAT 99
--- NOTE | 2021-02-23 12:03 | P.CONNP_ITS ---
History of Present Illness Reason for Consult Consult date: 02/23/21 Reason for consult: Hypertension Management Chief Complaint Chief complaint: TIA, uncontrolled hypertension History of Present Illness Narrative: 85-year-old female with known HTN presented to the ED sent in from PT for elevated BP and blurry vision when she went for Physiotherapy. She has with recent diagnosis of CVA on 02/06 via MRI.? She says that since that time she has some left foot numbness which is unchanged.? Denies headache, chest pain, lightheadedness/dizziness, SOB, abdominal pain, nausea/vomiting, new numbness/tingling, fever/chills. blurry vision also improved as per patient. Her BP was labile and medications are being optimized. Nephrology has been consulted to assist in her clinical care Review of Systems Review of Systems Yes all other systems are reviewed and are negative PMFSH Past Medical History Medical History COPD (chronic obstructive pulmonary disease) Dyslipidemia GERD (gastroesophageal reflux disease) Hearing loss History of ductal carcinoma in situ (DCIS) of breast Hypercalcemia Hypertension Left hip pain Left sided sciatica Left-sided weakness Multiple lacunar infarcts Osteoporosis Screening for breast cancer Urge urinary incontinence Family History Family History Father Heart failure CVD (cardiovascular disease) Mother Breast cancer Surgical History Surgical History H/O right inguinal hernia repair History of colonoscopy History of lumpectomy of right breast History of pubovaginal sling Social History Social History Household Members: None Housing: House Do you presently have visiting nurse or other home services: No Alcohol intake: current Alcohol intake frequency: does not drink Alcohol type: wine Patient Tobacco Use Status: Former Tobacco user Quit Date: 02/04/91 Tobacco use type: Cigarette e-Cigarette/Vaping Use: Never Used Second Hand Smoke Exposure: No service: No Current occupational status: retired Meds Allergies Allergy/AdvReac Type Severity Reaction Status Date / Time cephalexin [Keflex] Allergy Intermediate Unknown Verified 02/20/21 11:10 tetracycline [Tetracycline] Allergy Intermediate TONGUE Verified 02/20/21 11:10 SWOLLEN diphtheria,pertussis Allergy Mild Unknown Verified 02/20/21 11:10 (acell),amina Active Medications: Current Medications Acetaminophen (Acetaminophen 325 Mg Tablet) 650 mg PO Q6H PRN PRN Reason: Pain Amlodipine Besylate (Amlodipine Besylate 5 Mg Tablet) 5 mg PO DAILY [facility]; Protocol Last Admin: 02/23/21 08:58 Dose: 5 mg Documented by: Aspirin (Aspirin Enteric Coated 81 Mg Tablet.) 81 mg PO DAILY [facility] Last Admin: 02/23/21 08:58 Dose: 81 mg Documented by: Atorvastatin Calcium (Atorvastatin Calcium 10 Mg Tablet) 10 mg PO BEDTIME [facility] Last Admin: 02/22/21 21:43 Dose: 10 mg Documented by: Heparin Sodium (Porcine) (Heparin Sodium,Porcine 5,000 Unit/Ml Vial) 5,000 unit SUBCUT Q8H [facility] Last Admin: 02/23/21 08:58 Dose: 5,000 unit Documented by: Hydrochlorothiazide (Hydrochlorothiazide 12.5 Mg Tablet) 12.5 mg PO DAILY [facility]; Protocol Last Admin: 02/23/21 08:57 Dose: 12.5 mg Documented by: Losartan Potassium (Losartan Potassium 50 Mg Tablet) 100 mg PO DAILY [facility]; Protocol Last Admin: 02/23/21 08:57 Dose: 100 mg Documented by: Multivitamins/Vitamin C (Multivitamin Tablet) 1 tab PO DAILY [facility] Last Admin: 02/23/21 08:57 Dose: 1 tab Documented by: Nitrofurantoin Macrocrystals (Nitrofurantoin Macrocrystal 50 Mg Capsule) 100 mg PO BEDTIME [facility] Last Admin: 02/22/21 21:43 Dose: 100 mg Documented by: Omeprazole (Omeprazole 20 Mg Capsule.) 20 mg PO DAILY@0630 [facility] Last Admin: 02/23/21 06:11 Dose: 20 mg Documented by: Pharmacy Consult (Consult Rx Perform Med Rec) 1 each MISCELLANE ONCE PRN PRN Reason: Consult order Sodium Chloride (0.9 % Sodium Chloride Flush 3 Ml Syringe) 3 ml IVFLUSH QSHIFT [facility] Last Admin: 02/23/21 08:58 Dose: 3 ml Documented by: Tiotropium [place] (Tiotropium [place] 18 Mcg Cap.W.Dev) 1 puff INHALE RDAILY [facility] Last Admin: 02/23/21 07:58 Dose: 1 puff Documented by: Tolterodine Tartrate (Tolterodine Tartrate La 4 Mg Cap.Er.24h) 4 mg PO DAILY [facility] Last Admin: 02/23/21 08:57 Dose: 4 mg Documented by: Home Medications Medication Instructions Recorded Confirmed Last Taken Type glucosamine sulfate 1,000 mg 1,000 mg PO DAILY cap 02/08/20 02/21/21 02/21/21 History capsule multivitamin 1 tab PO DAILY 02/08/20 02/21/21 02/21/21 History aspirin 81 mg tablet,delayed 81 mg PO DAILY 02/24/20 02/21/21 02/21/21 History release (Adult Aspirin Regimen) denosumab 60 mg/mL subcutaneous 60 mg SUBCUT [id number] 05/16/20 02/21/21 09/04/20 History syringe (Prolia) lansoprazole 30 mg capsule,delayed 30 mg PO DAILY cap 05/16/20 02/21/21 02/21/21 History release acetaminophen 325 mg tablet 650 mg PO Q6H PRN 02/21/21 02/21/21 Unknown History nitrofurantoin macrocrystal 100 mg 1 cap PO BEDTIME 02/21/21 02/21/21 02/20/21 History capsule Physical Exam Vital Signs: Last Vital Signs Temp 97.6 F 02/23/21 07:34 Pulse 66 02/23/21 08:46 Resp 18 02/23/21 07:34 BP 125/58 L 02/23/21 08:57 Pulse Ox 96 02/23/21 08:46 Body Mass Index 24.9 Const General: no acute distress Orientation/consciousness: patient oriented x3 HENMT Head: Yes normocephalic Eyes EOM: EOMs intact bilaterally Neck Neck: Yes supple Resp Auscultation: diminished lung sounds Cardio Jugular venous distension: no JVD Rate: regular rate GI Palpation (GI): Soft to palpation Neuro General: patient oriented x3 and moves all extremities Results Lab Results Result Diagrams: 02/21/21 14:37 02/21/21 14:37 Lab results: Chemistry 02/21/21 14:37 Sodium 143 Potassium 4.2 Carbon Dioxide 29 BUN 17 H Creatinine 0.81 Calcium 10.2 Hematology 02/21/21 14:37 WBC 4.9 Hgb 12.8 Plt Count 247 Urinalysis 02/21/21 16:46 Urine Color YELLOW Urine Appearance CLEAR Urine pH 6.0 Ur Specific [place] 1.010 Urine Protein NEG Urine Glucose (UA) NEG Urine Ketones NEG Urine Blood NEG Urine Nitrite NEG Ur Leukocyte Esterase TRACE H Urine RBC 0-2 Urine WBC 1-4 Ur Squamous Epith Cells TRACE Assessment and Plan (1) Uncontrolled hypertension: Status: Acute Low sodium diet 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
--- NOTE | 2021-02-23 12:44 | MHC.CM.PN ---
Female 85 DX TIA+HTN Discharge is planned for today. Met with the patient for DC Planning. She agreed to accept homecare services. Her preferences we obtained. Her 1st choice is [facility]. The referral was sent. [facility] will provide homecare services. The patient was notified that [facility] will start services this weekend. The pt has arranged for private transportation home.
--- NOTE | 2021-02-23 13:00 | CA_ITS ---
Transthoracic Echocardiogram Patient (Last, First, Middle): Chichi Cintron M Gender: Female Date of : 1935 Age: 85 Procedure Date: 02/23/2021 Procedure Type: Transthoracic Echocardiogram Location: [facility] [place] Height: 144.78 cm Weight: 52.16 kg BSA: 1.42 m2 Heart Rate: bpm BP: 169 / 73 mmHg Serging Machine Operator Automatic: VINITA Lay MD: Jacquie Servin MD Construction Materials Tester: Fletcher Garza MD Symptoms: tia Study Quality: Fair ECG Rhythm: Sinus Conclusions: - 1. Normal LV systolic function with impaired relaxation filling pattern next 2. Mildly dilated left atrium 3. Moderate mitral annular calcification with within normal limits cardiac valvular Doppler 4. Normal RV systolic pressure 5. No pericardial effusion Findings Left Ventricle Normal left ventricular size, thickness, and systolic function. The visually estimated ejection fraction is between 60-65%. Spectral Doppler is indicative of an impaired relaxation filling pattern. E/E prime ratio is between 8 and 15 consistent with indeterminate filling pressures. There is mild septal asymmetric hypertrophy. Right Ventricle Normal right ventricular cavity size and systolic function. Atria The left atrium is mildly dilated. Interatrial shunt cannot be excluded. The right atrium is normal in size. Aortic Valve The aortic valve was not well visualized. There is no aortic valve stenosis. There is no aortic valve regurgitation. Mitral Valve There is mild anterior and moderate posterior mitral leaflet thickening. There is moderate mitral annular calcification. There is trace mitral valve regurgitation. There is no mitral valve stenosis. Pulmonic Valve The pulmonic valve was not well visualized. Tricuspid Valve Likely normal tricuspid valve structure and function. There is trace tricuspid valve regurgitation. The right ventricular systolic pressure is normal. The right ventricular systolic pressure is 20 mmHg. Normal right atrial pressure. There is no evidence of pulmonary hypertension. Great Vessels All visible segments of the aorta are normal in size. The pulmonary artery was not well visualized. Venous The inferior vena cava is normal in size and collapses greater than 50% with inspiration. Pericardium/Pleural There is no evidence of pericardial effusion. Prior Study Comparison No previous study in the last 5 years for comparison Measurements 2D Linear Measurements IVSd: 0.95 0.6-0.9/0.6-1.0 cm LVIDd: 2.45 3.9-5.3/4.2-5.9 cm LVIDd Index: 1.73 2.4-3.2/2.2-3.1 cm/m2 LVIDs: 1.57 2.0-3.6 cm LVPWd: 0.90 0.7-1.1 cm Ao Root: 3.20 2.1-3.5 cm LA Diam: 2.70 2.7-3.8/3.0-4.0 cm LAIDs Index: 1.90 1.5-2.3 cm/m2 LV Mass: 67.16 67-162/88-224 g LV Mass Index: 47.30 43-95/49-115 g/m2 LVOT Diam: 1.90 3.0+(-)1.3 cm Mitral Valve MV Pk E: 0.86 MV PK A: 1.34 MV Decel Time: 391.00 E/A: 0.60 E'Lateral: 4.90 E'Medial: 3.48 E/E' Med: 24.60 E/E' Lat: 17.50 PHT: 114.00 MVA PHT: 1.93 Decel [place]: 2.19 Aortic Valve AoV Pk Naga: 1.18 AoV Mn Naga: 0.76 AoV VTI: 0.22 AoV Pk Grad: 6.00 Aov Mn Grad: 3.00 YADIRA Cont.VTI: 2.58 LVOT LVOT Pk Naga: 0.89 LVOT Mn Naga: 0.59 LVOT VTI: 0.20 LVOT Pk Grad: 3.00 LVOT Mn Grad: 2.00 LVOT Diam: 1.90 LVOT Area: 2.84 Diastolic Function MV Pk E: 0.86 MV Pk A: 1.34 E/A: 0.60 E'Medial: 3.48 E/E' Med: 24.60 E' Laterial: 4.90 E/E' Lat: 17.50 Right Ventricle TAPSE (mm): 1.73 TVS' Naga: 10.20 Tricuspid Valve TR Pk Naga: 2.05 TR Pk Grad: 17.00 RA Press: 3.00 RVSP: 20.00 Great Vessels Aorta Ao Root-2D: 3.20 2.0-3.7 cm Ao Asc: 3.00 2.1-3.4 cm Ao Arch: 2.70 Updated in Other Vendor System with Status of Final Fletcher Garza MD electronically signed on 02/23/2021 3:33:19 PM with status of Final
== END 2021-02-23 14:29 | disposition home health service (06) ==
LOC: HO.ED 17:09 → HO.EDOVER 17:47 → HO.IMC 02-22 05:22
PROVIDERS: Physician Assistant; Admitting Provider Internal Medicine; Emergency Provider Emergency Medicine; PCP Internal Medicine; Visit Provider Internal Medicine
DX: G45.9 Transient cerebral ischemic attack, unspecified (principal); I63.81 Other cerebral infarction due to occlusion or stenosis of small artery; G83.14 Monoplegia of lower limb affecting left nondominant side; J44.9 Chronic obstructive pulmonary disease, unspecified; I10 Essential (primary) hypertension; E78.5 Hyperlipidemia, unspecified; E83.52 Hypercalcemia; R20.0 Anesthesia of skin; K21.9 Gastro-esophageal reflux disease without esophagitis; Z20.822 Contact with and (suspected) exposure to COVID-19; Z85.3 Personal history of malignant neoplasm of breast; Z87.891 Personal history of nicotine dependence; Z88.1 Allergy status to other antibiotic agents; Z88.7 Allergy status to serum and vaccine; Z79.899 Other long term (current) drug therapy
CPT/HCPCS: 36415; 70450; 80048; 80061; 80076; 81001; 81003; 83735; 84484; 85025; 87086; 87635; 93005; 93306; 97112; 97116; 97162; 97165; 99219; 99285

== ENCOUNTER 2021-02-27 12:57 | Outpatient (REF) | payer SELFPAY | END 2021-02-27 12:58 | disposition home or self-care (01) | LOC: HO.HAP 12:57 | PROVIDERS: Visit Provider Internal Medicine | DX: Z46.1 Encounter for fitting and adjustment of hearing aid (principal); H90.3 Sensorineural hearing loss, bilateral | CPT/HCPCS: 99499; V5299 ==

== ENCOUNTER → 2021-02-28 10:24 | Outpatient (BNVA) | payer MEDICARE, OTHER, SELFPAY | PROVIDERS: PCP Internal Medicine; Visit Provider Internal Medicine | DX: M81.0 Age-related osteoporosis without current pathological fracture (principal); E83.52 Hypercalcemia; Z79.899 Other long term (current) drug therapy | CPT/HCPCS: 99212 ==

== ENCOUNTER 2021-02-28 11:18 | Outpatient (REF) | payer MEDICARE, OTHER, SELFPAY ==
[2021-02-28 14:42] LABS: Alanine Aminotransferase 42 U/L (0-31); Alkaline Phosphatase 101 U/L (39-117); Anion Gap 13 (12-20); Aspartate Amino Transferase 27 U/L (5-31); Bilirubin Total 0.6 mg/dL (0.0-1.0); Blood Urea Nitrogen 30 mg/dL (9-16); Calcium 9.6 mg/dL (8.4-10.2); Carbon Dioxide 25 mmol/L (22-29); Chloride 106 mmol/L (96-108); Estimated Glomerular Filt Rate 54; Glucose Random 92 mg/dL (60-115); Phosphorus 3.4 mg/dL (2.7-4.5); Potassium 3.6 mmol/L (3.3-5.1); Sodium 140 mmol/L (135-145); Total Protein 6.6 g/dL (6.5-8.0)
[2021-02-28 14:49] LABS: Vitamin D 25-OH Total 48.9 ng/mL (>30)
[2021-03-01 12:21] LABS: Prot Elec - Albumin 3.8 g/dL (3.8-4.8); Prot Elec - Alpha1 0.4 g/dL (0.2-0.3); Prot Elec - Alpha2 0.9 g/dL (0.5-0.9); Prot Elec - Beta 1 0.5 g/dL (0.4-0.6); Prot Elec - Beta 2 0.4 g/dL (0.2-0.5); Prot Elec - Gamma 0.8 g/dL (0.8-1.7); Prot Elec - Total Protein 6.7 g/dL (6.1-8.1)
[2021-03-01 15:36] LABS: Calcium (PTHI) 9.8 mg/dL (8.6-10.4); PTHI 59 pg/mL (14-64)
[2021-03-02 10:22] LABS: Alkaline Phosphatase Bone 18.2 mcg/L (see note)
[2021-03-05 10:31] LABS: N-Telopeptide 25 (see note); NTXCreaRU 93 mg/dL (20-275)
== END 2021-02-28 11:19 | disposition home or self-care (01) ==
LOC: HO.10HDL 11:18
PROVIDERS: Visit Provider Internal Medicine
DX: M81.0 Age-related osteoporosis without current pathological fracture (principal); E83.52 Hypercalcemia
CPT/HCPCS: 36415; 80053; 82306; 82523; 83970; 84075; 84100; 84165; 84439; 84443; 99212

== ENCOUNTER → 2021-04-25 12:32 | Outpatient (BNVA) | payer MEDICARE, OTHER, SELFPAY | PROVIDERS: PCP Internal Medicine; Visit Provider Internal Medicine | DX: M81.0 Age-related osteoporosis without current pathological fracture (principal) | CPT/HCPCS: 96372; J0897 ==

== ENCOUNTER 2021-05-09 10:18 | Outpatient (REF) | payer MEDICARE, OTHER, SELFPAY ==
[2021-05-09 14:39] LABS: Alanine Aminotransferase 28 U/L (0-31); Albumin Level 3.9 g/dL (3.5-5.0); Alkaline Phosphatase 103 U/L (39-117); Anion Gap 13 (12-20); Aspartate Amino Transferase 18 U/L (5-31); Bilirubin Total 0.7 mg/dL (0.0-1.0); Blood Urea Nitrogen 30 mg/dL (9-16); Calcium 10.3 mg/dL (8.4-10.2); Carbon Dioxide 28 mmol/L (22-29); Chloride 105 mmol/L (96-108); Estimated Glomerular Filt Rate > 60; Glucose Random 108 mg/dL (60-115); Phosphorus 3.6 mg/dL (2.7-4.5); Potassium 3.9 mmol/L (3.3-5.1); Sodium 142 mmol/L (135-145); Total Protein 6.6 g/dL (6.5-8.0)
[2021-05-09 14:43] LABS: Vitamin D 25-OH Total 48.4 ng/mL (>30)
[2021-05-10 18:11] LABS: Calcium (PTHI) 10.1 mg/dL (8.6-10.4); PTHI 41 pg/mL (14-64)
[2021-05-11 15:41] LABS: Calcium, Ionized 5.3 mg/dL (4.8-5.6)
[2021-05-14 13:22] LABS: Alkaline Phosphatase Bone 18.5 mcg/L (see note)
[2021-05-15 13:22] LABS: N-Telopeptide 18 (see note); NTXCreaRU 76 mg/dL (20-275)
== END 2021-05-09 10:19 | disposition home or self-care (01) ==
LOC: HO.10HDL 10:18
PROVIDERS: Visit Provider Internal Medicine
DX: M81.0 Age-related osteoporosis without current pathological fracture (principal); E55.9 Vitamin D deficiency, unspecified
CPT/HCPCS: 36415; 80053; 82306; 82330; 82523; 83970; 84075; 84100

== ENCOUNTER → 2021-05-24 10:46 | Outpatient (BNVA) | payer MEDICARE, OTHER, SELFPAY | PROVIDERS: PCP Internal Medicine; Referring Provider Internal Medicine; Visit Provider Surgery | DX: Z86.000 Personal history of in-situ neoplasm of breast (principal) | CPT/HCPCS: 99212 ==

== ENCOUNTER → 2021-05-28 13:41 | Outpatient (BNVA) | payer MEDICARE, OTHER, SELFPAY | PROVIDERS: PCP Internal Medicine; Visit Provider Internal Medicine | DX: M81.0 Age-related osteoporosis without current pathological fracture (principal); E83.52 Hypercalcemia; E55.9 Vitamin D deficiency, unspecified | CPT/HCPCS: 99212 ==

== ENCOUNTER 2021-05-30 10:55 | Outpatient (REF) | payer MEDICARE, OTHER, SELFPAY | END 2021-05-30 10:56 | disposition home or self-care (01) | LOC: HO.10HDL 10:55 | PROVIDERS: Visit Provider Nurse Practitioner Family | DX: R25.2 Cramp and spasm (principal) | CPT/HCPCS: 36415; 83735 ==

== ENCOUNTER 2021-07-10 14:00 | Outpatient (REF) | payer MEDICARE, OTHER, SELFPAY ==
--- NOTE | ~2021-07-10 | MM_ITS ---
EXAMINATION: BONE DENSITOMETRY CLINICAL INDICATION: Age-related osteoporosis without current pathological fracture. COMPARISON: Previous BD dated 07/08/2019 and baseline BD dated 05/29/2007 (lumbar spine and left hip) and 06/29/2013 (left forearm radius 33%). TECHNIQUE: Using a [employer] DXA System (software version: 13.1) manufactured by [employer], dual-energy x-ray absorptiometry was performed of the lumbar spine, left hip and left forearm radius 33%. The images are of good technical quality. Summary results are attached. FINDINGS: AP SPINE L1-L4: Current: BMD 0.822 g/cm2, Z-score -0.6, T-score -3.0, osteoporosis, 3.8% increase from previous, 7.2% increase from baseline (<5% change is not significant). Prior: BMD 0.792 g/cm2. Baseline: BMD 0.767 g/cm2. LEFT FEMUR, NECK: Current: BMD 0.780 g/cm2, Z-score 0.9, T-score -1.9, osteopenia. Prior: BMD 0.713 g/cm2. Baseline: BMD 0.756 g/cm2. LEFT FEMUR, TOTAL: Current: BMD 0.813 g/cm2, Z-score 1.1, T-score -1.5, osteopenia, 12.0% increase from previous, 3.7% increase from baseline (<5% change is not significant). Prior: BMD 0.726 g/cm2. Baseline: BMD 0.784 g/cm2. LEFT FOREARM RADIUS 33%: Current: BMD 0.691 g/cm2, Z-score 1.2, T-score -2.1, osteopenia, 1.6% increase from baseline (<5% change is not significant). Baseline: BMD 0.680 g/cm2. IDENTIFIED RISK FACTORS: Osteoporosis. Height loss. Parental hip fracture. Thiazide. Menopause. HISTORY OF FRACTURE: None listed. MEDICATIONS: Calcium supplement and/or multivitamin. Prolia. MM/XR DEXA appendicular skeleton IMPRESSION: 1. DIAGNOSIS: Osteoporosis based on the lowest T-score value of -3.0 in the lumbar spine applying World Health Organization criteria. 2. 10-YEAR FRACTURE RISK PREDICTION, FRAX: Major osteoporotic fracture (clinical spine, forearm, hip or shoulder) 27.2%. Hip fracture 18.0%. 3. Treatment Recommendations: NOF guidelines recommend consideration for treatment in postmenopausal women and men age 50 and older presenting with the following: -A hip or vertebral (clinical or morphometric) fracture. -T-score less than or equal to -2.5 at the femoral neck or spine after appropriate evaluation to exclude secondary causes. -Low bone mass at the hip or spine and a 10-year fracture probability by FRAX of greater than or equal to 3% for hip fracture or greater than or equal to 20% for major osteoporotic fracture based on the [place] adapted WHO algorithm. 4. Other Recommendations: All treatment decisions require clinical judgment and consideration of individual patient factors, including patient preferences, comorbidities, previous drug use, risk factors not captured in the FRAX model (e.g. frailty, falls, vitamin D deficiency, increased bone turnover, interval significant decline in bone density) and possible under or overestimation of fracture risk by FRAX. Additional medical evaluation for secondary cause of low bone mineral density may be appropriate. FUTURE SCAN RECOMMENDATION: People with diagnosed cases of osteoporosis or at high risk for fracture should have regular bone mineral density tests. For patients eligible for Medicare, routine testing is allowed once every 2 years. The testing frequency can be increased to one year for patients who have rapidly progressing disease, those who are receiving or discontinuing medical therapy to restore bone mass, or have additional risk factors.
== END 2021-07-10 14:01 | disposition home or self-care (01) ==
LOC: HO.MAMMO 14:00
PROVIDERS: PCP Internal Medicine; Visit Provider Internal Medicine
DX: M81.0 Age-related osteoporosis without current pathological fracture (principal)
CPT/HCPCS: 77081

== ENCOUNTER 2021-08-29 11:37 | Outpatient (REF) | payer MEDICARE, OTHER, SELFPAY ==
[2021-08-29 13:38] LABS: Anion Gap 13 (12-20); Blood Urea Nitrogen 24 mg/dL (9-16); Calcium 10.3 mg/dL (8.4-10.2); Carbon Dioxide 26 mmol/L (22-29); Chloride 105 mmol/L (96-108); Estimated Glomerular Filt Rate > 60; Magnesium 1.8 mg/dL (1.6-2.6); Phosphorus 3.7 mg/dL (2.7-4.5); Potassium 3.6 mmol/L (3.3-5.1); Sodium 140 mmol/L (135-145)
== END 2021-08-29 11:38 | disposition home or self-care (01) ==
LOC: HO.10HDL 11:37
PROVIDERS: Visit Provider Internal Medicine Nephrology
DX: I10 Essential (primary) hypertension (principal)
CPT/HCPCS: 36415; 80051; 82310; 82565; 83735; 84100; 84520

== ENCOUNTER 2021-08-30 12:43 | Outpatient (REF) | payer MEDICARE, OTHER, SELFPAY ==
--- NOTE | ~2021-08-30 | US_ITS ---
EXAMINATION: US VENOUS ULTRASOUND WITH DOPPLER LOWER EXTREMITY, LEFT CLINICAL INFORMATION: Edema left lower leg evaluate for DVT COMPARISON: None TECHNIQUE: Ultrasound of the deep veins is performed from the hip to the calf with compression sonography and color and pulse Doppler assessment. Spectral analysis with color-flow imaging is performed. FINDINGS: There is normal venous compression and respiratory variation and augmented flow. The visualized common femoral vein, superficial femoral vein, profunda femoral vein, popliteal vein, and the trifurcation region shows no evidence of deep venous thrombosis. There is no significant popliteal fossa cyst. Contralateral common femoral vein is patent. If the patient's symptoms persist, followup ultrasound in 5 days 7 days might be of value to exclude proximal propagation from a non-visualized calf vein. US/US venous duplex LE IMPRESSION: No DVT demonstrated in the left lower extremity.
== END 2021-08-30 12:44 | disposition home or self-care (01) ==
LOC: HO.US 12:43
PROVIDERS: PCP Internal Medicine; Visit Provider Nurse Practitioner Family
DX: R60.0 Localized edema (principal)
CPT/HCPCS: 93971

== ENCOUNTER → 2021-08-31 10:02 | Outpatient (BNVA) | payer MEDICARE, OTHER, SELFPAY | PROVIDERS: PCP Internal Medicine | DX: N39.0 Urinary tract infection, site not specified (principal) | CPT/HCPCS: 51798; 99212 ==

== ENCOUNTER 2021-10-18 14:36 | Observation (INO) | payer MEDICARE, OTHER, SELFPAY ==
--- NOTE | ~2021-10-18 | CT_ITS ---
EXAMINATION: CT ANGIOGRAM NECK WITH CONTRAST CT ANGIOGRAM BRAIN WITH CONTRAST CLINICAL INFORMATION: Question CVA. COMPARISON: None. TECHNIQUE: Test bolus sequences followed by intravenous administration 100 mL of Omnipaque 350. Helical imaging was performed in the axial plane from the thoracic inlet to the skull vertex. Delayed postcontrast imaging of the head was also performed. The data was processed at the ep technologist workstation for generation of MIP sequences. Angled MIPs and volume rendered reformatted images were also generated at an offline 3D workstation. Stenoses are assessed in accordance with NASCET criteria unless otherwise indicated. This CT examination was performed using dose optimization techniques as appropriate, variously including the following: *Automated exposure control *Adjustment of mA and/or kV according to patient size (this includes techniques or standardized protocols for targeted exams where dose is matched to indication/reason for exam; i.e. extremities or head) *Use of iterative reconstruction technique DLP: 1316 mGy-cm FINDINGS: Head CT: There is no intracranial hemorrhage, extra-axial collection, mass effect, or CT evidence of territorial infarction. Chronic infarcts are seen throughout the bilateral basal ganglia, thalami, and yesika. Patchy hypoattenuation in the cerebral white matter most likely reflects sequela of chronic microangiopathy. There is no abnormal enhancement. The visualized paranasal sinuses and mastoid air cells are clear. Neck CTA: Atheromatous calcifications are seen within the aortic arch. The great vessel origins are patent without significant stenosis. Atheromatous changes are seen at the right carotid bifurcation resulting in less than 50% stenosis of the proximal right internal carotid artery and severe stenosis of the proximal right external carotid artery. The cervical segment of the right ICA is patent. The left common carotid artery is patent. Atheromatous changes are seen at the left carotid bifurcation without significant stenosis of the left internal carotid artery origin. Just distal to the origin there is focal calcific plaque without significant stenosis. The right vertebral artery demonstrates mild stenosis along the V1 segment but is otherwise patent throughout its remaining cervical course. The left vertebral artery is significantly dominant and demonstrates mild calcific plaque but without significant stenosis. Head CTA: Atheromatous changes are seen at the bilateral carotid siphons without significant stenosis. No proximal vessel occlusion is seen. The ACAs and MCAs are patent mild atheromatous changes seen along the bilateral M1 MCA segment. The intradural vertebral arteries are patent with atheromatous changes noted. The basilar artery is patent. Both carpenter assistant installer are patent. No aneurysm is seen. The dural venous sinuses demonstrate grossly normal opacification although evaluation is suboptimal. Non-vascular findings: Multilevel degenerative changes are seen within the spine. Significant emphysema is seen within the upper lungs. A few scattered sub-4 mm pulmonary nodules are noted. There is asymmetric soft tissue prominence enhancement within the right palatine tonsillar fossa best seen on series 6 image 433/836. CT/CT angio head neck stroke IMPRESSION: CT head: No intracranial hemorrhage or large acute infarction. Background changes of chronic microangiopathy with multiple chronic lacunar infarcts in the basal ganglia, thalami, and yesika. CTA neck: Atheromatous changes at the carotid bifurcations without hemodynamically significant stenosis of the proximal internal carotid arteries. 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 CTA head: No large vessel occlusion or high-grade intracranial arterial stenosis. No evidence of aneurysm. Additional findings: Asymmetric soft tissue prominence and enhancement within the right palatine tonsillar fossa seen on series 6 image 433/36. Given smoking history dedicated ENT evaluation is recommended to evaluate for any mucosal abnormality. Incidentally noted scattered pulmonary nodules. According to the updated 2017 Fleischner Society recommendations, the advised follow-up imaging for solid nodules < 6 mm is: LOW RISK PATIENT: No routine follow-up. HIGH RISK PATIENT: Optional CT at 12 months. This critical result was discussed with Dr. Babin on 10/18/2021 3:39 PM, and it was ascertained that the content and urgency of the report was understood at the time of direct communication.
--- NOTE | ~2021-10-18 | CT_ITS ---
EXAMINATION: CT HEAD WITHOUT CONTRAST CLINICAL INFORMATION: Stroke protocol. COMPARISON: CT brain 02/21/2021 TECHNIQUE: Contiguous axial imaging was performed from the skull base to vertex without intravenous administration of contrast. This CT examination was performed using dose optimization techniques as appropriate, variously including the following: *Automated exposure control *Adjustment of mA and/or kV according to patient size (this includes techniques or standardized protocols for targeted exams where dose is matched to indication/reason for exam; i.e. extremities or head) *Use of iterative reconstruction technique DLP: 559 mGy-cm FINDINGS: There is no evidence of acute intracranial hemorrhage or territorial infarction. There is a small old infarcts along bilateral external capsule which are stable. There is likely infarctions seen along the right internal capsule as well. No abnormal mass effect or midline shift is seen. Haque to white matter differentiation is well preserved. No extra-axial fluid collections are identified. End so other cortical sulci. There is extensive periventricular hypodensity suggestive of chronic small vessel ischemic changes. Osseous structures and soft tissues are normal. There is a moderate polyp or retention cyst left maxillary sinus. Rest the paranasal sinuses and mastoid air cells are well-aerated. CT/CT head/brain wo con IMPRESSION: No acute intracranial process seen. Bilateral chronic lacunar infarcts external capsule and right internal capsule. Moderate cerebral volume loss. Large polyp or retention cyst left maxillary sinus. Results were called to Dr. Talya Harrell in the ER by phone at 3:04 PM
--- NOTE | ~2021-10-18 | MR_ITS ---
EXAMINATION: MRI BRAIN WITHOUT CONTRAST CLINICAL INFORMATION: Left lower extremity weakness and tingling. Evaluate for stroke. COMPARISON: CT angiogram of the head and neck 10/18/2021. TECHNIQUE: Multiplanar MR imaging of the brain was performed without contrast. FINDINGS: There are numerous foci of T2 FLAIR signal hyperintensity within the periventricular white matter and yesika that most likely represent a chronic manifestation of small vessel ischemia. No acute territorial infarct. No pathological magnetic susceptibility artifact. Intracranial vascular flow voids are maintained. There is no intracranial mass effect midline shift. No abnormal extra-axial collection. Lateral and third ventricles are normal. No hydrocephalus. Midline structures including the cervicomedullary junction are normal. No acute bone marrow signal changes. There is no mastoid or middle ear effusion. Multiple retention cysts within the left maxillary sinus. Globes and orbits are unremarkable. MR/MR head/brain wo con IMPRESSION: There are numerous chronic small vessel ischemic changes primarily involving the periventricular white matter and yesika. Otherwise unremarkable examination. No evidence of acute territorial infarct or hemorrhage.
--- NOTE | 2021-10-18 14:42 | ECG_ITS ---
Test Reason : CHEST PAIN Blood Pressure : / mmHG Vent. Rate : 078 BPM Atrial Rate : 078 BPM P-R Int : 192 ms QRS Dur : 090 ms QT Int : 410 ms P-R-T Axes : 062 098 030 degrees QTc Int : 467 ms Normal sinus rhythm Rightward axis Borderline ECG When compared with ECG of 21-FEB-2021 14:32, Questionable change in QRS axis Referred By: Julio Cesar Babin Electronically Signed By:HEAVENLY MOORE
--- NOTE | 2021-10-18 14:47 | ED_ITS ---
HPI - Neuro Symptoms/Deficit General Chief Complaint: Stroke Stated Complaint: STROKE ALERT,L SIDE WEAK,LKWT 8AM,ON ASA Time Seen by Provider: 10/18/21 14:40 Source: patient and EMS Mode of arrival: EMS Limitations: no limitations History of Present Illness HPI Narrative: THIS IS AN 86 YEARS OLD THE FEMALE BROUGHT IN BY THE EMS STROKE ALERT. THE PATIENT IS COMPLAINING OF LEFT LEG NUMBNESS AND WEAKNESS SYMPTOMS STARTED ABOUT 08:00 THIS MORNING. 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 SHE ARRIVED AWAKE AND ALERT WITH NORMAL SPEECH AND MILD LEFT LEG WEAKNESS Onset (ago): hour(s) (6.5 H) Location: left leg History of same: Yes Severity: mild Quality: weak, numb and tingling Relieving factors: none Exacerbating factors: none Related Data Home Medications Medication Instructions Recorded Confirmed glucosamine sulfate 1,000 mg 1,000 mg PO DAILY 02/08/20 10/18/21 capsule multivitamin 1 tab PO DAILY 02/08/20 10/18/21 aspirin 81 mg tablet,delayed 81 mg PO DAILY 02/24/20 10/18/21 release (Adult Aspirin Regimen) denosumab 60 mg/mL subcutaneous 60 mg subcut [id number] 05/16/20 10/18/21 syringe (Prolia) magnesium 250 mg tablet 250 mg PO DAILY 05/24/21 10/18/21 acetaminophen 650 mg 650 mg PO Q6H PRN Pain (Scale 10/18/21 10/18/21 tablet,extended release (Tylenol Score 1-3) Arthritis Pain) lansoprazole 30 mg capsule,delayed 30 mg PO DAILY@0630 10/18/21 10/18/21 release nitrofurantoin macrocrystal 100 mg 100 mg PO BEDTIME 10/18/21 10/18/21 capsule Previous Rx's Medication Instructions Recorded tiotropium bromide 18 mcg capsule 1 cap inhalation DAILY 90 days #90 01/03/21 with inhalation device inhalations tolterodine 4 mg capsule,extended 4 mg PO DAILY 90 days #90 caps 04/02/21 release 24 hr losartan 100 mg tablet 100 mg PO DAILY 90 days #90 tabs 06/01/21 chlorthalidone 25 mg tablet 25 mg PO DAILY 90 days #90 tabs 08/13/21 ezetimibe 10 mg tablet 10 mg PO DAILY 90 days #90 tabs 08/15/21 amlodipine 5 mg tablet 5 mg PO DAILY #30 tabs 09/26/21 Allergies Allergy/AdvReac Type Severity Reaction Status Date / Time cephalexin [Keflex] Allergy Intermediate Unknown Verified 09/20/21 13:21 tetracycline [Tetracycline] Allergy Intermediate TONGUE Verified 09/20/21 13:21 SWOLLEN Review of Systems Review of Systems: Yes all other systems are reviewed and are negative Constitutional: Constitutional: Reports no additional constitutional complain ts Eyes: Eyes: Reports no additional eye complaints Respiratory: Respiratory: Reports no additional respiratory complaints Musculoskeletal: Musculoskeletal: Reports no additional musculoskeletal complaints FOR[facility]LY [facility], [facility] Past Medical History Medical History COPD (chronic obstructive pulmonary disease) Dyslipidemia Frequent UTI GERD (gastroesophageal reflux disease) Hearing loss History of ductal carcinoma in situ (DCIS) of breast Hypercalcemia Hypercalcemia Hypertension Left hip pain Left sided sciatica Left-sided weakness Multiple lacunar infarcts Osteoporosis Screening for breast cancer Urge urinary incontinence Vitamin D deficiency Surgical History H/O right inguinal hernia repair History of colonoscopy History of lumpectomy of right breast History of pubovaginal sling Family History Family History Father Heart failure CVD (cardiovascular disease) Mother Breast cancer Social History Social History Household Members: None Housing: House Do you presently have visiting nurse or other home services: No Alcohol intake: current Alcohol intake frequency: holidays/special occasions only Alcohol type: wine Patient Tobacco Use Status: Former Tobacco user Quit Date: 02/04/91 Tobacco use type: Cigarette e-Cigarette/Vaping Use: Never Used Second Hand Smoke Exposure: No Advance Directives: Yes Advance Directives Information Provided: No Advance Directives on File: No service: No Current occupational status: retired Cognitive needs: No Hearing needs: Yes (hearing aide) Vision needs: No (glaases) Physical Exam Vital Signs: Vital Signs: Last Vital Signs Temp 97.7 F 10/18/21 16:31 Pulse 91 10/18/21 16:31 Resp 19 06/30/22 16:31 BP 167/65 H 10/18/21 16:31 Pulse Ox 98 10/18/21 16:31 O2 Del Method 10/18/21 15:32 BMI result Body Mass Index 26.4 Const: General: cooperative, comfortable, no acute distress, well developed, alert and awake Nutritional Appearance: average body habitus Orientation/consciousness: patient oriented x3 Limitations: no limitations HEENT: Head: Yes normal to inspection Ears: hearing grossly normal bilaterally General nose exam: Normal external nose present Face and sinus: Yes normal facial exam Mouth: Normal oral and palatal mucosa present Neck: Neck: Yes normal visual inspection and Yes full ROM Thyroid: Thyroid normal Lymphatic: no lymphadenopathy noted Chest: Chest palpation & inspection: normal inspection of the chest Resp: Effort & Inspection: normal respiratory effort and able to speak in complete sentences Auscultation: clear to auscultation bilaterally Cardio: Jugular venous distension: no JVD Rate: regular rate Rhythm: regular rhythm GI: Inspection: Yes normal to inspection Palpation (GI): Soft to palpation, not firm and nontender : General: Yes no CVA tenderness Back/Spine/Pelvis: Back: no CVA tenderness Skin: General skin exam: no rashes or lesions noted and elasticity normal Neuro: General: patient oriented x3 Cranial nerves: Yes CN's II-XII intact bilaterally Cognition (Neuro): normal cognition Motor exam (neuro): Pronator motor function not present and Other motor observations present (EFT LOWER EXTREMITY 4/5) Sensory Exam: Abnormal lower extremity sensory exam Course Reevaluation(s) Reevaluation #1: At this point that symptoms are completely gone she is neurologically intact will admit for obs MDM - Neuro Symptoms/Deficit Lab Data Result diagrams: 10/18/21 15:36 10/18/21 15:36 Labs: Lab Results 10/18/21 10/18/21 10/18/21 Range/Units 15:36 15:36 15:36 WBC 5.6 (4.8-10.8) X10*3/uL RBC 3.84 L (4.20-5.50) X10*6/uL Hgb 11.6 L (12.0-16.0) g/dl Hct 34.8 L (37.0-47.0) % MCV 90.6 (80.0-98.0) fL MCH 30.2 (27.0-33.0) pg MCHC 33.3 (31.0-35.0) g/dl RDW 13.9 (11.0-16.0) % Plt Count 312 D (160-400) X10*3/uL MPV 9.5 (9.4-12.3) fL Immature Gran % (Auto) 0.4 (0.0-0.4) % Neut % (Auto) 65.5 (45-73) % Lymph % (Auto) 21.8 (20-40) % [place] % (Auto) 9.9 (2-11) % Eos % (Auto) 2.0 (0-4) % Baso % (Auto) 0.4 (0-2) % Lymph # (Auto) 1.2 (1.2-4.9) X10*3/uL [place] # (Auto) 0.6 (0.1-1.2) X10*3/uL Eos # (Auto) 0.1 (0.0-0.4) X10*3/uL Baso # (Auto) 0.0 (0.0-0.2) X10*3/uL Abs Immat Gran (auto) 0.02 (0.00-0.03) X10*3/uL Absolute Neuts (auto) 3.7 (2.0-8.3) x10*3/uL Absolute Nucleated RBC 0.000 (0.0-0.012) X10*3/uL Nucleated RBC % (auto) 0.0 (0.0-0.2) /100WBC PT 11.0 (10.0-13.1) SEC INR 1.0 (0.9-1.1) Sodium 138 (135-145) mmol/L Potassium 4.1 (3.3-5.1) mmol/L Chloride 104 (96-108) mmol/L Carbon Dioxide 26 (22-29) mmol/L Anion Gap 12 (12-20) BUN 25 H (9-16) mg/dL Creatinine 0.83 (0.5-1.4) mg/dL Estim Creat Clear Calc 34.8 Estimated GFR > 60 Random Glucose 97 (60-115) mg/dL Calcium 9.4 D (8.4-10.2) mg/dL Total Bilirubin 0.6 (0.0-1.0) mg/dL AST 23 (5-31) U/L ALT 30 (0-31) U/L Alkaline Phosphatase 85 (39-117) U/L Troponin I High Sens (<3.5-17.0) ng/L Total Protein 6.0 L (6.5-8.0) g/dL Albumin 3.6 (3.5-5.0) g/dL 10/18/21 Range/Units 15:36 WBC (4.8-10.8) X10*3/uL RBC (4.20-5.50) X10*6/uL Hgb (12.0-16.0) g/dl Hct (37.0-47.0) % MCV (80.0-98.0) fL MCH (27.0-33.0) pg MCHC (31.0-35.0) g/dl RDW (11.0-16.0) % Plt Count (160-400) X10*3/uL MPV (9.4-12.3) fL Immature Gran % (Auto) (0.0-0.4) % Neut % (Auto) (45-73) % Lymph % (Auto) (20-40) % [place] % (Auto) (2-11) % Eos % (Auto) (0-4) % Baso % (Auto) (0-2) % Lymph # (Auto) (1.2-4.9) X10*3/uL [place] # (Auto) (0.1-1.2) X10*3/uL Eos # (Auto) (0.0-0.4) X10*3/uL Baso # (Auto) (0.0-0.2) X10*3/uL Abs Immat Gran (auto) (0.00-0.03) X10*3/uL Absolute Neuts (auto) (2.0-8.3) x10*3/uL Absolute Nucleated RBC (0.0-0.012) X10*3/uL Nucleated RBC % (auto) (0.0-0.2) /100WBC PT (10.0-13.1) SEC INR (0.9-1.1) Sodium (135-145) mmol/L Potassium (3.3-5.1) mmol/L Chloride (96-108) mmol/L Carbon Dioxide (22-29) mmol/L Anion Gap (12-20) BUN (9-16) mg/dL Creatinine (0.5-1.4) mg/dL Estim Creat Clear Calc Estimated GFR Random Glucose (60-115) mg/dL Calcium (8.4-10.2) mg/dL Total Bilirubin (0.0-1.0) mg/dL AST (5-31) U/L ALT (0-31) U/L Alkaline Phosphatase (39-117) U/L Troponin I High Sens 5.4 (<3.5-17.0) ng/L Total Protein (6.5-8.0) g/dL Albumin (3.5-5.0) g/dL Imaging Data CT scan - head: Radiologist's impression: or midline shift is seen. [place] to white matter differentiation is well preserved. No extra-axial fluid collections are identified. End so other cortical sulci. There is extensive periventricular hypodensity suggestive of chronic small vessel ischemic changes. Osseous structures and soft tissues are normal. There is a moderate polyp or retention cyst left maxillary sinus. Rest the paranasal sinuses and mastoid air cells are well-aerated. CT/CT head/brain wo con IMPRESSION: No acute intracranial process seen. ? Bilateral chronic lacunar infarcts external capsule and right internal capsule. ? Moderate cerebral volume loss. Large polyp or retention cyst left maxillary sinus. ? Results were called to Dr. Talya Harrell in the ER by phone at 3:04 PM ECG Data ECG interpretation date: 10/18/21 Pacemaker model: EKG shows normal sinus rhythm a rate of [address]-T changes NIH Stroke Scale Level of Consciousness: Alert Level of Consciousness Questions: Answers both questions correctly Level of Consciousness Commands: Performs both tasks correctly Best Gaze: Normal Visual: No visual loss Facial Palsy: Normal Motor Arm (Right): No drift Motor Arm (Left): No drift Motor Leg (Right): No drift Motor Leg (Left): No drift Limb Ataxia: Absent Sensory: Normal Best Language: No aphasia Dysarthia: Normal Extinction and Inattention: No abnormality Score: 0 Discharge Plan Discharge Clinical Impression: TIA (transient ischemic attack) Patient Disposition: Admitted As Inpatient
[2021-10-18 15:32] VITALS: BP 155/59; PULSE 84; RESP 14; TEMP 36.8; O2SAT 98; BMI 26.4
[2021-10-18 15:40] LABS: MANUAL DIFF FLAG NO
[2021-10-18 15:46] LABS: Basophils Percent Auto 0.4 % (0-2); Eosinophils Absolute Auto 0.1 X10*3/uL (0.0-0.4); Hematocrit 34.8 % (37.0-47.0); Hemoglobin 11.6 g/dl (12.0-16.0); Imm Gran Abs Auto 0.02 X10*3/uL (0.00-0.03); Imm Gran Pct Auto 0.4 % (0.0-0.4); Lymphocytes Absolute Auto 1.2 X10*3/uL (1.2-4.9); Lymphocytes Percent Auto 21.8 % (20-40); Mean Corpuscular HGB Conc 33.3 g/dl (31.0-35.0); Mean Corpuscular Hemoglobin 30.2 pg (27.0-33.0); Mean Corpuscular Volume 90.6 fL (80.0-98.0); Mean Platelet Volume 9.5 fL (9.4-12.3); Monocytes Absolute Auto 0.6 X10*3/uL (0.1-1.2); Monocytes Percent Auto 9.9 % (2-11); Neutrophils Absolute Auto 3.7 x10*3/uL (2.0-8.3); Neutrophils Percent Auto 65.5 % (45-73); Platelet Count 312 X10*3/uL (160-400); Red Blood Count 3.84 X10*6/uL (4.20-5.50); Red Cell Distribution Width 13.9 % (11.0-16.0); White Blood Count 5.6 X10*3/uL (4.8-10.8)
[2021-10-18 15:59] LABS: Alanine Aminotransferase 30 U/L (0-31); Albumin Level 3.6 g/dL (3.5-5.0); Alkaline Phosphatase 85 U/L (39-117); Anion Gap 12 (12-20); Aspartate Amino Transferase 23 U/L (5-31); Bilirubin Total 0.6 mg/dL (0.0-1.0); Blood Urea Nitrogen 25 mg/dL (9-16); Calcium 9.4 mg/dL (8.4-10.2); Carbon Dioxide 26 mmol/L (22-29); Chloride 104 mmol/L (96-108); Creatinine Clr Calc Pharmacy 34.8; Estimated Glomerular Filt Rate > 60; Glucose Random 97 mg/dL (60-115); Potassium 4.1 mmol/L (3.3-5.1); Sodium 138 mmol/L (135-145)
[2021-10-18 16:07] LABS: Troponin-I High Sensitivity 5.4 ng/L (<3.5-17.0)
[2021-10-18 16:31] VITALS: BP 167/65; PULSE 91; RESP 19; TEMP 36.5; O2SAT 98
--- NOTE | 2021-10-18 16:54 | PC.NURSE ---
Dr. Babin aware of patients high BP
--- NOTE | 2021-10-18 18:08 | PM.IMHP ---
History of Present Illness Date of Service: 10/18/21 Chief Complaint: left lower extremity weakness an 86 years old lady with PMH of CVA, COPD, GERD, HTN among others who presents to the hospital with hours of left lower extremity numbness and weakness. Her symptoms started earlier this morning around 8 when she was out on her deck as she noticed tingling sensation upon standing up to walk she felt weakness in her left lower extremity that lasted for few hours as she called EMS because she got worried about having a new stroke as she had previous 1 a in 2020. In the emergency the weakness resolved completely but she continued to complain of left lower extremity tingling sensation. A CT scan of the head and neck did not show any acute findings. Patient will be admitted for observation and urology evaluation. Review of Systems Review of Systems: No fever, chills or weakness No chest pain, palpitation No shortness of breath or coughing No abdominal pain, nausea or vomiting No urinary symptoms No any rash or wounds Left lower extremity weakness PMFSH Medical History COPD (chronic obstructive pulmonary disease) Dyslipidemia Frequent UTI GERD (gastroesophageal reflux disease) Hearing loss History of ductal carcinoma in situ (DCIS) of breast Hypercalcemia Hypercalcemia Hypertension Left hip pain Left sided sciatica Left-sided weakness Multiple lacunar infarcts Osteoporosis Screening for breast cancer Urge urinary incontinence Vitamin D deficiency Family History Father Heart failure CVD (cardiovascular disease) Mother Breast cancer Surgical History H/O right inguinal hernia repair History of colonoscopy History of lumpectomy of right breast History of pubovaginal sling Social History Household Members: None Housing: House Do you presently have visiting nurse or other home services: No Alcohol intake: current Alcohol intake frequency: holidays/special occasions only Alcohol type: wine Patient Tobacco Use Status: Former Tobacco user Quit Date: 02/04/91 Tobacco use type: Cigarette e-Cigarette/Vaping Use: Never Used Second Hand Smoke Exposure: No Advance Directives: Yes Advance Directives Information Provided: No Advance Directives on File: No service: No Current occupational status: retired Cognitive needs: No Hearing needs: Yes (hearing aide) Vision needs: No (glaases) Meds Allergies Allergy/AdvReac Type Severity Reaction Status Date / Time cephalexin [Keflex] Allergy Intermediate Unknown Verified 09/20/21 13:21 tetracycline [Tetracycline] Allergy Intermediate TONGUE Verified 09/20/21 13:21 SWOLLEN Active Medications: Current Medications Pharmacy Consult (Consult Rx Perform Med Rec) 1 each MISCELLANE ONCE PRN PRN Reason: Consult order Home Medications Medication Instructions Recorded Confirmed Last Taken Type glucosamine sulfate 1,000 mg 1,000 mg PO DAILY 02/08/20 10/18/21 10/18/21 History capsule multivitamin 1 tab PO DAILY 02/08/20 10/18/21 10/18/21 History aspirin 81 mg tablet,delayed 81 mg PO DAILY 02/24/20 10/18/21 10/18/21 History release (Adult Aspirin Regimen) denosumab 60 mg/mL subcutaneous 60 mg subcut [id number] 05/16/20 10/18/21 05/22/21 History syringe (Prolia) magnesium 250 mg tablet 250 mg PO DAILY 05/24/21 10/18/21 10/18/21 History acetaminophen 650 mg 650 mg PO Q6H PRN Pain (Scale 10/18/21 10/18/21 Unknown History tablet,extended release (Tylenol Score 1-3) Arthritis Pain) lansoprazole 30 mg capsule,delayed 30 mg PO DAILY@0630 10/18/21 10/18/21 10/18/21 History release nitrofurantoin macrocrystal 100 mg 100 mg PO BEDTIME 10/18/21 10/18/21 10/17/21 History capsule Physical Exam Vital Signs and Narrative: Vital Signs: Last Vital Signs Temp 97.7 F 10/18/21 16:31 Pulse 91 10/18/21 16:31 Resp 19 10/18/21 16:31 BP 167/65 H 10/18/21 16:31 Pulse Ox 98 10/18/21 16:31 O2 Del Method 10/18/21 15:32 BMI result Body Mass Index 26.4 Const: Other: Constitutional : Alert, oriented, not in distress Neck : Normal inspection, Supple Cardiovascular : RRR, no JVP, no lower extremity edema Respiratory : fair bilateral air entry, no crackles, wheezes or rhonchi Gastrointestinal: soft, lax, Normal bowel sounds, Non tender Skin : Warm, Dry Neurological : Alert & oriented x3, No focal deficit , CN 2-12 within normal, abnormal left lower extremity sensory exam in the bottom of her foot Results Labs CBC and Chem 7: 10/18/21 15:36 10/18/21 15:36 Labs: Laboratory Results - last 24 hr 10/18/21 10/18/21 10/18/21 15:36 15:36 15:36 MCV 90.6 MCH 30.2 MCHC 33.3 RDW 13.9 Plt Count 312 D MPV 9.5 Immature Gran % (Auto) 0.4 Neut % (Auto) 65.5 Lymph % (Auto) 21.8 [place] % (Auto) 9.9 Eos % (Auto) 2.0 Baso % (Auto) 0.4 Lymph # (Auto) 1.2 [place] # (Auto) 0.6 Eos # (Auto) 0.1 Baso # (Auto) 0.0 Abs Immat Gran (auto) 0.02 Absolute Neuts (auto) 3.7 Absolute Nucleated RBC 0.000 Nucleated RBC % (auto) 0.0 PT 11.0 INR 1.0 Anion Gap 12 Estim Creat Clear Calc 34.8 Estimated GFR > 60 Random Glucose 97 Calcium 9.4 D Total Bilirubin 0.6 AST 23 ALT 30 Alkaline Phosphatase 85 Troponin I High Sens Total Protein 6.0 L Albumin 3.6 10/18/21 15:36 MCV MCH MCHC RDW Plt Count MPV Immature Gran % (Auto) Neut % (Auto) Lymph % (Auto) [place] % (Auto) Eos % (Auto) Baso % (Auto) Lymph # (Auto) [place] # (Auto) Eos # (Auto) Baso # (Auto) Abs Immat Gran (auto) Absolute Neuts (auto) Absolute Nucleated RBC Nucleated RBC % (auto) PT INR Anion Gap Estim Creat Clear Calc Estimated GFR Random Glucose Calcium Total Bilirubin AST ALT Alkaline Phosphatase Troponin I High Sens 5.4 Total Protein Albumin Imaging Radiologist's Impressions: Impressions Head CT 10/18/21 14:58 IMPRESSION: No acute intracranial process seen. Bilateral chronic lacunar infarcts external capsule and right internal capsule. Moderate cerebral volume loss. Large polyp or retention cyst left maxillary sinus. Results were called to Dr. Talya Harrell in the ER by phone at 3:04 PM Head/Neck CTA 10/18/21 15:37 IMPRESSION: CT head: No intracranial hemorrhage or large acute infarction. Background changes of chronic microangiopathy with multiple chronic lacunar infarcts in the basal ganglia, thalami, and yesika. CTA neck: Atheromatous changes at the carotid bifurcations without hemodynamically significant stenosis of the proximal internal carotid arteries. 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 CTA head: No large vessel occlusion or high-grade intracranial arterial stenosis. No evidence of aneurysm. Additional findings: Asymmetric soft tissue prominence and enhancement within the right palatine tonsillar fossa seen on series 6 image 433/36. Given smoking history dedicated ENT evaluation is recommended to evaluate for any mucosal abnormality. Incidentally noted scattered pulmonary nodules. According to the updated 2017 Fleischner Society recommendations, the advised follow-up imaging for solid nodules < 6 mm is: LOW RISK PATIENT: No routine follow-up. HIGH RISK PATIENT: Optional CT at 12 months. This critical result was discussed with Dr. Babin on 10/18/2021 3:39 PM, and it was ascertained that the content and urgency of the report was understood at the time of direct communication. Assessment and Plan (1) Numbness and tingling of left leg: Status: Acute (2) Weakness of left lower extremity: Status: Acute Plan an 86 years old lady with PMH of CVA, COPD, GERD, HTN among others who presents to the hospital with hours of left lower extremity numbness and weakness. left lower extremity weakness and tingling Could be secondary to peripheral neuropathy, TIA, stroke CT head, CTA head and neck negative for any acute findings Start aspirin and start atorvastatin Get MRI Physical therapy Urology evaluation Lipid profile hypertension continue home medication adjusted amlodipine and losartan. History of COPD Continue home medications. HLP continue statins Gerd continue? PPI. dvt prophylax Lovenox Quality Stroke Does the patient have a stroke diagnosis?: No VTE Prior VTE?: No VTE Risk Level:: Medical - moderate - high VTE Device Contraindication: Treatment Not Indicated VTE Drug Contraindication: N/A - Med Ordered
[2021-10-18 19:20] VITALS: BP 145/60; PULSE 67; RESP 16; O2SAT 97
[2021-10-18] MEDS: Enoxaparin Sodium 40 MG/0.4 ML SYRINGE SUBCUT (19:30)
[2021-10-18] MEDS: Atorvastatin Calcium 40 MG TABLET PO (20:28)
[2021-10-18 21:22] LABS: COVID-19 Test Negative (Negative)
--- NOTE | 2021-10-18 21:38 | PC.NURSE ---
Pt ambulated to the bathroom with no issue.
[2021-10-18 21:39] VITALS: BP 162/53; PULSE 77; RESP 17; O2SAT 98
[2021-10-18 23:55] VITALS: BP 125/63; PULSE 66; RESP 17; O2SAT 96
--- NOTE | 2021-10-19 02:50 | PC.NURSE ---
to note no assessment documented by previous shift RN.
[2021-10-19 04:36] VITALS: BP 128/50; PULSE 65; RESP 18; TEMP 35.7; O2SAT 97
[2021-10-19 06:51] LABS: Hematocrit 35.6 % (37.0-47.0); Hemoglobin 11.8 g/dl (12.0-16.0); Mean Corpuscular HGB Conc 33.1 g/dl (31.0-35.0); Mean Corpuscular Hemoglobin 29.9 pg (27.0-33.0); Mean Corpuscular Volume 90.1 fL (80.0-98.0); Mean Platelet Volume 9.6 fL (9.4-12.3); Platelet Count 309 X10*3/uL (160-400); Red Blood Count 3.95 X10*6/uL (4.20-5.50); Red Cell Distribution Width 14.1 % (11.0-16.0); White Blood Count 5.3 X10*3/uL (4.8-10.8)
[2021-10-19 07:06] LABS: Anion Gap 11 (12-20); Blood Urea Nitrogen 20 mg/dL (9-16); Calcium 9.4 mg/dL (8.4-10.2); Carbon Dioxide 26 mmol/L (22-29); Chloride 109 mmol/L (96-108); Cholesterol 201 mg/dL; Creatinine Clr Calc Pharmacy 37.5; Estimated Glomerular Filt Rate > 60; Glucose Random 93 mg/dL (60-115); HDL Cholesterol 67 mg/dL; LDL Cholesterol Calculated 114 mg/dl; Sodium 142 mmol/L (135-145); Triglycerides 103 mg/dL
[2021-10-19 07:08] VITALS: BP 118/53; PULSE 62; RESP 10; TEMP 36.7; O2SAT 99
[2021-10-19 07:14] LABS: Glucose, Whole Blood 85 mg/dL (60-115)
[2021-10-19 08:40] VITALS: BP 100/49; PULSE 64; RESP 14
--- NOTE | 2021-10-19 09:22 | PC.NURSE ---
pt to MRI
[2021-10-19] MEDS: amLODIPine Besylate 5 MG TABLET PO (10:17)
[2021-10-19] MEDS: 0.9 % Sodium Chloride Flush 3 ML SYRINGE IVFLUSH (10:17)
[2021-10-19] MEDS: Aspirin Enteric Coated 81 MG TABLET.DR PO (10:17)
[2021-10-19] MEDS: Losartan Potassium 50 MG TABLET 100 MG PO (10:17)
[2021-10-19] MEDS: Ezetimibe 10 MG TABLET PO (10:18)
[2021-10-19 11:15] VITALS: BP 139/58; PULSE 67; RESP 14; O2SAT 99
--- NOTE | 2021-10-19 11:17 | MHC.CM.PN ---
Attempted to meet with patient in regards to discharge planning. Patient currently at MRI. Will attempt to meet again. Continue to monitor for d/c needs.
--- NOTE | 2021-10-19 12:09 | P.CNNE_ITS ---
History of Present Illness Data of Consult Service Date: 10/19/21 Primary Care Provider: Shirin Duron MD HPI Reason for consult: Left leg weakness 86 years old woman with underlying history of hypertension came to hospital with left leg numbness tingling and weakness that started this morning. When I saw h er it was resolved. She denied any significant back pain or leg pain but when I saw her she was having a cramp in her foot. She said that she tried to put her foot on a step and could not do so. Review of Systems Review of Systems: No recent trauma fall or seizure-like episode [facility] Past Medical History Medical History COPD (chronic obstructive pulmonary disease) Dyslipidemia Frequent UTI GERD (gastroesophageal reflux disease) Hearing loss History of ductal carcinoma in situ (DCIS) of breast Hypercalcemia Hypercalcemia Hypertension Left hip pain Left sided sciatica Left-sided weakness Multiple lacunar infarcts Osteoporosis Screening for breast cancer Urge urinary incontinence Vitamin D deficiency Family History Family History Father Heart failure CVD (cardiovascular disease) Mother Breast cancer Surgical History Surgical History H/O right inguinal hernia repair History of colonoscopy History of lumpectomy of right breast History of pubovaginal sling Social History Social History Household Members: None Housing: House Do you presently have visiting nurse or other home services: No Alcohol intake: current Alcohol intake frequency: holidays/special occasions only Alcohol type: wine Patient Tobacco Use Status: Former Tobacco user Quit Date: 02/04/91 Tobacco use type: Cigarette e-Cigarette/Vaping Use: Never Used Second Hand Smoke Exposure: No Advance Directives: Yes Advance Directives Information Provided: No Advance Directives on File: No service: No Current occupational status: retired Cognitive needs: No Hearing needs: Yes (hearing aide) Vision needs: No (glaases) Meds Allergies Allergy/AdvReac Type Severity Reaction Status Date / Time cephalexin [Keflex] Allergy Intermediate Unknown Verified 09/20/21 13:21 tetracycline [Tetracycline] Allergy Intermediate TONGUE Verified 09/20/21 13:21 SWOLLEN Active Medications: Current Medications Acetaminophen (Acetaminophen 325 Mg Tablet) 650 mg PO Q6H PRN PRN Reason: Pain, Mild (Pain Scale 1-3) Amlodipine Besylate (Amlodipine Besylate 5 Mg Tablet) 5 mg PO DAILY [facility]; Protocol Last Admin: 10/19/21 10:17 Dose: 5 mg Aspirin (Aspirin Enteric Coated 81 Mg Tablet.Dr) 81 mg PO DAILY [facility] Last Admin: 10/19/21 10:17 Dose: 81 mg Atorvastatin Calcium (Atorvastatin Calcium 40 Mg Tablet) 40 mg PO BEDTIME [facility] Last Admin: 10/18/21 20:28 Dose: 40 mg Ezetimibe (Ezetimibe 10 Mg Tablet) 10 mg PO DAILY [facility] Last Admin: 10/19/21 10:18 Dose: 10 mg Enoxaparin Sodium (Enoxaparin Sodium 40 Mg/0.4 Ml Syringe) 40 mg SUBCUT Q24H [facility] Last Admin: 10/18/21 19:30 Dose: 40 mg Losartan Potassium (Losartan Potassium 50 Mg Tablet) 100 mg PO DAILY [facility]; Protocol Last Admin: 10/19/21 10:17 Dose: 100 mg Ondansetron HCl (Ondansetron Hcl 4 Mg/2 Ml Vial) 4 mg IVPUSH Q8H PRN PRN Reason: Nausea and Vomiting Pharmacy Consult (Consult Rx Perform Med Rec) 1 each MISCELLANE ONCE PRN PRN Reason: Consult order Sodium Chloride (0.9 % Sodium Chloride Flush 3 Ml Syringe) 3 ml IVFLUSH QSHIFT [facility] Last Admin: 10/19/21 10:17 Dose: 3 ml Tiotropium Painter (Tiotropium Painter 18 Mcg Cap.W.Dev) 1 puff INHALE RDAILY [facility] Last Admin: 10/19/21 09:48 Dose: Not Given Tolterodine Tartrate (Tolterodine Tartrate La 4 Mg Cap.Er.24h) 4 mg PO DAILY [facility] Home Medications Medication Instructions Recorded Confirmed Last Taken Type glucosamine sulfate 1,000 mg 1,000 mg PO DAILY 02/08/20 10/18/21 10/18/21 History capsule multivitamin 1 tab PO DAILY 02/08/20 10/18/21 10/18/21 History aspirin 81 mg tablet,delayed 81 mg PO DAILY 02/24/20 10/18/21 10/18/21 History release (Adult Aspirin Regimen) denosumab 60 mg/mL subcutaneous 60 mg subcut [id number] 05/16/20 10/18/21 05/22/21 History syringe (Prolia) magnesium 250 mg tablet 250 mg PO DAILY 05/24/21 10/18/21 10/18/21 History acetaminophen 650 mg 650 mg PO Q6H PRN Pain (Scale 10/18/21 10/18/21 Unknown History tablet,extended release (Tylenol Score 1-3) Arthritis Pain) lansoprazole 30 mg capsule,delayed 30 mg PO DAILY@62910/18/21 10/18/21 10/18/21 History release nitrofurantoin macrocrystal 100 mg 100 mg PO BEDTIME 10/18/21 10/18/21 10/17/21 History capsule Physical Exam Vital Signs: Vital Signs: Last Vital Signs Temp 98.0 F 10/19/21 07:08 Pulse 67 10/19/21 11:15 Resp 14 10/19/21 11:15 BP 139/58 L 10/19/21 11:15 Pulse Ox 99 10/19/21 11:15 O2 Del Method 10/19/21 11:15 BMI result Body Mass Index 26.4 Neuro: Other: She was alert and awake with normal spontaneity of speech fluency comprehension and affect. Pupils were equal and reactive to light. Extraocular muscles were intact. Visual mejia are full to threat. Face revealed mild left-sided weakness. There was no pronator drift. [id number] testing was normal. Deep tendon reflexes were 1+ with equivocal bilateral plantar. Speech was normal Results Labs CBC & Chem 7: 10/19/21 06:16 10/19/21 06:16 Labs: Short CBC 10/18/21 10/19/21 Range/Units 15:36 06:16 WBC 5.6 5.3 (4.8-10.8) X10*3/uL Hgb 11.6 L 11.8 L (12.0-16.0) g/dl Hct 34.8 L 35.6 L (37.0-47.0) % Plt Count 312 D 309 (160-400) X10*3/uL BMP 10/18/21 10/19/21 15:36 06:16 Sodium 138 142 Potassium 4.1 4.0 Chloride 104 109 H Carbon Dioxide 26 26 BUN 25 H 20 H Creatinine 0.83 0.77 Calcium 9.4 D 9.4 Liver Function 10/18/21 Range/Units 15:36 Total Bilirubin 0.6 (0.0-1.0) mg/dL AST 23 (5-31) U/L ALT 30 (0-31) U/L Alkaline Phosphatase 85 (39-117) U/L Albumin 3.6 (3.5-5.0) g/dL Her CT scan of brain did not reveal any obvious acute abnormality. Chronic bilateral ischemic infarctions were noted mostly in basal ganglia. MRI of brain also reveals same finding with no acute lesion. CTA of brain and neck did not reveal any significant abnormality. A palatine lesion was described by radiologist Assessment and Plan (1) Numbness and tingling of left leg: Status: Acute 86 years old woman with underlying history of hypertension and multiple bilateral small to medium size artery ischemic infarctions. This time she presented with left leg weakness and numbness but her evaluation did not reveal any acute abnormality. This could be a transient episode of ischemia. I would recommend putting her on baby aspirin and Plavix 75 mg daily for a month and then discontinuing Plavix. She needs better blood pressure management. Procedures Date of Service Date of Service: 10/19/21
[2021-10-19 12:23] VITALS: BP 139/58; PULSE 67; O2SAT 99
--- NOTE | 2021-10-19 12:31 | MHC.STROKE ---
10/18/21 1433 EMS PRE-NOTIFIED STROKE ALERT LKW 0800, ARRIVED AT 1436, EXAMINED BY DR GUILLAUME, STROKE PROTOCOL ACITIVATED CT AND CTA H/N. NO BLEED, NO LVO. THIS PATIENT IS KNOWN TO THE STROKE SERVICE FROM PRIOR STROKE ON 02/06/21. WE DISCUSSED HER DIAGNOSIS, MRI DID NOT REVEAL ANY ACUTE FINDING. LAST KNOWN WELL WAS 10/17/21 AT 2200 WHEN SHE WENT TO BED. SHE WOKE AT 0800 SHE HAD LEFT LEG WEAKNESS/NUMBNESS BUT SHE CONTINUED TO GO TO AN APPOINTMENT AND DRIVE. DR REYNOLDS ROUNDED AND RECOMMENDED ADDING PLAVIX TO THE ASPIRIN. SEE HIS NOTE. SHE DOES NOT TAKE HER ZOCOR PRESCRIBED IN THE PAST BECAUSE OF MUSCLE WEAKNESS, SHE IS ON ZETIA AN CHOLESTEROL ABSORBER INHIBITOR INSTEAD. WE REVIEWED THE STROKE EDUCATION BOOKLET AND I ANSWERED ALL OF HER QUESTIONS.
[2021-10-19] MEDS: Tolterodine Tartrate LA 4 MG CAP.ER.24H PO (12:35)
[2021-10-19 12:36] LABS: Glucose, Whole Blood 90 mg/dL (60-115)
--- NOTE | 2021-10-19 14:13 | PM.DS ---
DS: Providers Provider Date of Service: 10/19/21 Date of admission: 10/18/21 18:04 Primary care physician: Shirin Duron MD Consults: 10/18/21 18:04 Consult to Neurology Routine Consulting Provider: [facility] Reason for consultation: LLE weakness and tingling, Hx CVA DS: Diagnosis Discharge Diagnosis (1) Numbness and tingling of left leg: Status: Acute (2) Weakness of left lower extremity: Status: Acute DS: Summary Hospital Course Hospital Course: admission note HPI ?an 86 years old lady with PMH of CVA, COPD, GERD, HTN among others who presents to the hospital with hours of left lower extremity numbness and weakness.? Her symptoms started earlier this morning around 8 when she was out on her deck as she noticed tingling sensation upon standing up to walk she felt weakness in her left lower extremity that lasted for few hours as she called EMS because she got worried about having a new stroke as she had previous 1 a in 2020. In the emergency the weakness resolved completely but she continued to complain of left lower extremity tingling sensation.? A CT scan of the head and neck? did not show any acute findings. Patient will be admitted for observation and urology evaluation. Hospital course The patient was admitted for evaluation of left lower extremity numbness and weakness. Had CT head, CTA head and neck and an MRI which all were negative for any acute events. Her symptoms resolved during the hospital stay.Urology team evaluated the patient and recommended starting baby aspirin and Plavix for 1 month then to discontinue Plavix given this could be a transient episode of ischemia. Evaluated by Physical therapy who recommended home PT. CTA reported possible solved tissue abnormality in the right palatine fossa. Nothing significant was noted on the exam. MRI did not report any abnormality. Can be followed as outpatient with her PCP. Start Plavix for 1 month duration then discontinue it To add atorvastatin for cholesterol reduction continue baby aspirin daily To do physical therapy at home Time Spent with Patient Time attestation: Total time spent providing and/or coordinating discharge services: Discharge coordination time: Greater than 30 minutes Quality: Safe Use of Opioids Does Pt have an Active Cancer Diagnosis on the Problem List?: No Quality: Stroke Does the patient have a stroke diagnosis?: No Physical Exam Vital Signs: Vital Signs: Last Vital Signs Temp 98.0 F 10/19/21 07:08 Pulse 67 10/19/21 12:23 Resp 14 10/19/21 11:15 BP 139/58 L 10/19/21 12:23 Pulse Ox 99 10/19/21 12:23 O2 Del Method 10/19/21 11:15 BMI result Body Mass Index 26.4 Const: Other: Constitutional : Alert, oriented, not in distress Neck : Normal inspection, Supple Cardiovascular : RRR, no JVP, no lower extremity edema Respiratory : fair bilateral air entry, no crackles, wheezes or rhonchi Gastrointestinal: soft, lax, Normal bowel sounds, Non tender Skin : Warm, Dry Neurological : Alert & oriented x3, No focal deficit , CN 2-12 within normal DS: Data Data Completed and Pending Labs on day of discharge: Laboratory Results - last 24 hr 10/18/21 10/18/21 10/18/21 15:36 15:36 15:36 WBC 5.6 RBC 3.84 L Hgb 11.6 L Hct 34.8 L MCV 90.6 MCH 30.2 MCHC 33.3 RDW 13.9 Plt Count 312 D MPV 9.5 Immature Gran % (Auto) 0.4 Neut % (Auto) 65.5 Lymph % (Auto) 21.8 [place] % (Auto) 9.9 Eos % (Auto) 2.0 Baso % (Auto) 0.4 Lymph # (Auto) 1.2 [place] # (Auto) 0.6 Eos # (Auto) 0.1 Baso # (Auto) 0.0 Abs Immat Gran (auto) 0.02 Absolute Neuts (auto) 3.7 Absolute Nucleated RBC 0.000 Nucleated RBC % (auto) 0.0 PT 11.0 INR 1.0 Sodium 138 Potassium 4.1 Chloride 104 Carbon Dioxide 26 Anion Gap 12 BUN 25 H Creatinine 0.83 Estim Creat Clear Calc 34.8 Estimated GFR > 60 POC Glucose Random Glucose 97 Calcium 9.4 D Total Bilirubin 0.6 AST 23 ALT 30 Alkaline Phosphatase 85 Troponin I High Sens Total Protein 6.0 L Albumin 3.6 Triglycerides Cholesterol LDL Cholesterol, Calc HDL Cholesterol COVID-19 ([facility]) COVID-19 Clin Com 10/18/21 10/18/21 10/19/21 15:36 21:00 06:16 WBC RBC Hgb Hct MCV MCH MCHC RDW Plt Count MPV Immature Gran % (Auto) Neut % (Auto) Lymph % (Auto) [place] % (Auto) Eos % (Auto) Baso % (Auto) Lymph # (Auto) [place] # (Auto) Eos # (Auto) Baso # (Auto) Abs Immat Gran (auto) Absolute Neuts (auto) Absolute Nucleated RBC Nucleated RBC % (auto) PT INR Sodium 142 Potassium 4.0 Chloride 109 H Carbon Dioxide 26 Anion Gap 11 L BUN 20 H Creatinine 0.77 Estim Creat Clear Calc 37.5 Estimated GFR > 60 POC Glucose Random Glucose 93 Calcium 9.4 Total Bilirubin AST ALT Alkaline Phosphatase Troponin I High Sens 5.4 Total Protein Albumin Triglycerides 103 Cholesterol 201 D LDL Cholesterol, Calc 114 HDL Cholesterol 67 COVID-19 ([facility]) Negative COVID-19 Clin Com See Note 10/19/21 10/19/21 10/19/21 06:16 07:07 12:30 WBC 5.3 RBC 3.95 L Hgb 11.8 L Hct 35.6 L MCV 90.1 MCH 29.9 MCHC 33.1 RDW 14.1 Plt Count 309 MPV 9.6 Immature Gran % (Auto) Neut % (Auto) Lymph % (Auto) [place] % (Auto) Eos % (Auto) Baso % (Auto) Lymph # (Auto) [place] # (Auto) Eos # (Auto) Baso # (Auto) Abs Immat Gran (auto) Absolute Neuts (auto) Absolute Nucleated RBC 0.000 Nucleated RBC % (auto) 0.0 PT INR Sodium Potassium Chloride Carbon Dioxide Anion Gap BUN Creatinine Estim Creat Clear Calc Estimated GFR POC Glucose 85 90 Random Glucose Calcium Total Bilirubin AST ALT Alkaline Phosphatase Troponin I High Sens Total Protein Albumin Triglycerides Cholesterol LDL Cholesterol, Calc HDL Cholesterol COVID-19 ([facility]) COVID-19 Clin Com Discharge Plan Discharge Patient Disposition: Home Health Service Discharge Diagnosis: left lower extremity weakness and numbness Referrals: [facility] [Outside] - 1 Week (Agency will call to arrange a visit after 10/22.) Shirin Magana MD [Primary Care Provider] - 1 Week Discharge Medications: New atorvastatin 40 mg Tablet 40 mg PO BEDTIME 30 Days Qty: 30 0RF clopidogrel 75 mg Tablet 75 mg PO DAILY 30 Days Qty: 30 0RF Continued tiotropium bromide 18 mcg capsule, w/inhalation device 1 cap inhalation DAILY 90 Days Qty: 90 3RF tolterodine 4 mg capsule,extended release 24hr 4 mg PO DAILY 90 Days Qty: 90 2RF losartan 100 mg tablet 100 mg PO DAILY 90 Days Qty: 90 3RF ezetimibe 10 mg tablet 10 mg PO DAILY 90 Days Qty: 90 3RF amlodipine 5 mg tablet 5 mg PO DAILY Qty: 30 1RF acetaminophen [Tylenol Arthritis Pain] 650 mg tablet extended release 650 mg PO Q6H PRN (Reason: Pain (Scale Score 1-3)) nitrofurantoin macrocrystal 100 mg capsule 100 mg PO BEDTIME Rx Instructions: must administer with a meal/food lansoprazole 30 mg capsule,delayed release(DR/EC) 30 mg PO DAILY@0630 Prolia 60 mg/mL syringe 60 mg subcut [id number] Rx Instructions: last dose may 2021 chlorthalidone 25 mg tablet 25 mg PO DAILY 90 Days Qty: 90 1RF glucosamine sulfate 1,000 mg capsule 1,000 mg PO DAILY Rx Instructions: administer with meals multivitamin Tablet 1 tab PO DAILY aspirin [Adult Aspirin Regimen] 81 mg tablet,delayed release (DR/EC) 81 mg PO DAILY magnesium 250 mg tablet 250 mg PO DAILY Discharge Orders: Discharge Order (Routine); Ordered 10/19/21 Ordered By: Matthew Roche Activity on Discharge: As tolerated Stand Alone Forms: Patient Portal Discharge page Care Plan Goals: Read below Health Concerns: Read below Plan of Treatment: Read below Assessment: you were admitted to the hospital for evaluation of left lower extremity weakness and numbness. Evaluated with brain images of CT, CTA and MRI which did not show any acute stroke. Evaluated by neurologist who recommended to use Plavix with aspirin for 1 month. Start Plavix for 1 month duration then discontinue it To add atorvastatin for cholesterol reduction continue baby aspirin daily To do physical therapy at home
[2021-10-19] MEDS: Clopidogrel Bisulfate 75 MG TABLET PO (14:15)
--- NOTE | 2021-10-19 14:17 | P.F2F_ITS ---
Service Date Service Date: 10/19/21 Encounter Date of encounter: 10/19/21 Reasons for Services Signs and symptoms assessed: Left lower extremity weakness Reason for physical therapy: home safety and mobility and therapeutic exercises Homebound: Leaving the home is medically contraindicated at this time without the asist of a device and/or another person due th the listed conditions above and below. Reason homebound: unsteady gait / fall risk and other Certification: Based on the above findings, I certify that this patient is confined to the home and needs intermittent correction care, physical therapy and/or speech therapy, or continues to need occupational therapy. The patient is under my care, and I have initiated the establishment of the plan of care. The patient will be followed by a physician who will periodically review the plan of care.
--- NOTE | 2021-10-19 14:42 | MHC.CM.PN ---
Met with patient in regards to discharge planning. Patient lives alone, ambulates independently and had no services prior to coming to the hospital. PCP verified. HCP completed, signed and witnessed. Original given to patient. Copy placed in chart. Obs notice explained and signed. Patient received 3 Pfizer vaccines and 1 Moderna. Physical therapy eval completed. Home therapy is recommended. Evelio COLVIN will not be able to see patient before 10/23. Dr Roche aware and agreeable. Patient's sister, Wanda will come to [facility] to transport patient home. Patient and Mark RN aware. Continue to monitor for d/c needs.
== END 2021-10-19 14:50 | disposition home health service (06) ==
LOC: HO.ED 16:48 → HO.EDOVER 18:22
PROVIDERS: Nurse Practitioner Family; Admitting Provider Student in an Organized Health Care Education/Training Program; Emergency Provider Emergency Medicine; PCP Internal Medicine; Visit Provider Student in an Organized Health Care Education/Training Program
DX: R20.0 Anesthesia of skin (principal); R20.2 Paresthesia of skin; R53.1 Weakness; Z20.822 Contact with and (suspected) exposure to COVID-19; R91.8 Other nonspecific abnormal finding of lung field; I10 Essential (primary) hypertension; E55.9 Vitamin D deficiency, unspecified; J44.9 Chronic obstructive pulmonary disease, unspecified; K21.9 Gastro-esophageal reflux disease without esophagitis; E78.5 Hyperlipidemia, unspecified; Z79.82 Long term (current) use of aspirin; Z79.899 Other long term (current) drug therapy; Z87.891 Personal history of nicotine dependence; Z86.000 Personal history of in-situ neoplasm of breast; Z86.73 Personal history of transient ischemic attack (TIA), and cerebral infarction without residual deficits; Z87.440 Personal history of urinary (tract) infections
CPT/HCPCS: 36415; 70450; 70496; 70498; 70551; 80048; 80053; 80061; 82947; 84484; 85025; 85027; 85610; 87635; 93005; 96372; 96374; 97162; 99219; 99284; 99285; J1650

== ENCOUNTER → 2021-10-25 14:16 | Outpatient (BNVA) | payer MEDICARE, OTHER, SELFPAY | PROVIDERS: PCP Internal Medicine; Visit Provider Internal Medicine | DX: M81.0 Age-related osteoporosis without current pathological fracture (principal); E83.52 Hypercalcemia; E55.9 Vitamin D deficiency, unspecified; Z79.899 Other long term (current) drug therapy | CPT/HCPCS: Q3014 ==

== ENCOUNTER 2021-10-30 08:59 | Outpatient (REF) | payer MEDICARE, OTHER, SELFPAY ==
[2021-10-30 11:42] LABS: Alanine Aminotransferase 22 U/L (0-31); Albumin Level 3.8 g/dL (3.5-5.0); Alkaline Phosphatase 82 U/L (39-117); Anion Gap 12 (12-20); Aspartate Amino Transferase 21 U/L (5-31); Bilirubin Total 0.5 mg/dL (0.0-1.0); Blood Urea Nitrogen 21 mg/dL (9-16); Calcium 9.3 mg/dL (8.4-10.2); Carbon Dioxide 26 mmol/L (22-29); Chloride 108 mmol/L (96-108); Estimated Glomerular Filt Rate > 60; Glucose Random 91 mg/dL (60-115); Phosphorus 3.4 mg/dL (2.7-4.5); Potassium 3.5 mmol/L (3.3-5.1); Sodium 142 mmol/L (135-145); Total Protein 6.2 g/dL (6.5-8.0)
[2021-10-30 12:04] LABS: Vitamin D 25-OH Total 44.2 ng/mL (>30)
[2021-10-31 12:36] LABS: Calcium (PTHI) 9.5 mg/dL (8.6-10.4); PTHI 60 pg/mL (16-77)
[2021-11-06 07:42] LABS: N-Telopeptide 42 (see note); NTXCreaRU 103 mg/dL (20-275)
== END 2021-10-30 09:00 | disposition home or self-care (01) ==
LOC: HO.10HDL 08:59
PROVIDERS: Visit Provider Internal Medicine
DX: M81.0 Age-related osteoporosis without current pathological fracture (principal); E55.9 Vitamin D deficiency, unspecified
CPT/HCPCS: 36415; 80053; 82306; 82523; 83970; 84100

== ENCOUNTER → 2021-11-02 09:58 | Outpatient (BNVA) | payer MEDICARE, OTHER, SELFPAY | PROVIDERS: PCP Internal Medicine; Visit Provider Internal Medicine | DX: M81.0 Age-related osteoporosis without current pathological fracture (principal) | CPT/HCPCS: 96372; J0897 ==

== ENCOUNTER 2021-11-16 10:36 | Outpatient (REF) | payer MEDICARE, OTHER, SELFPAY ==
[2021-11-16 13:41] LABS: Estimated Glomerular Filt Rate 54
[2021-11-18 13:06] LABS: Calcium (PTHI) 8.4 mg/dL (8.6-10.4); PTHI 111 pg/mL (16-77)
== END 2021-11-16 10:37 | disposition home or self-care (01) ==
LOC: HO.10HDL 10:36
PROVIDERS: Visit Provider Internal Medicine
DX: M81.0 Age-related osteoporosis without current pathological fracture (principal)
CPT/HCPCS: 36415; 82565; 83970

== ENCOUNTER 2021-12-28 08:34 | Outpatient (REF) | payer MEDICARE, OTHER, SELFPAY ==
[2021-12-28 11:18] LABS: Alanine Aminotransferase 35 U/L (0-31); Albumin Level 3.8 g/dL (3.5-5.0); Alkaline Phosphatase 105 U/L (39-117); Anion Gap 14 (12-20); Aspartate Amino Transferase 28 U/L (5-31); Bilirubin Total 0.7 mg/dL (0.0-1.0); Blood Urea Nitrogen 26 mg/dL (9-16); Calcium 9.2 mg/dL (8.4-10.2); Carbon Dioxide 26 mmol/L (22-29); Chloride 107 mmol/L (96-108); Cholesterol 136 mg/dL; Estimated Glomerular Filt Rate > 60; Glucose Fasting 94 mg/dL (60-99); HDL Cholesterol 61 mg/dL; LDL Cholesterol Calculated 63 mg/dl; Potassium 3.7 mmol/L (3.3-5.1); Sodium 143 mmol/L (135-145); Total Protein 6.3 g/dL (6.5-8.0); Triglycerides 61 mg/dL
== END 2021-12-28 08:35 | disposition home or self-care (01) ==
LOC: HO.10HDL 08:34
PROVIDERS: Visit Provider Internal Medicine
DX: I10 Essential (primary) hypertension (principal)
CPT/HCPCS: 36415; 80053; 80061

== ENCOUNTER 2022-01-19 18:37 | Emergency (ER) | payer MEDICARE, OTHER, SELFPAY ==
[2022-01-19 18:46] VITALS: BP 182/97; BP 194/125; PULSE 60; PULSE 67; RESP 17; O2SAT 100; O2SAT 99; BMI 24.5
--- NOTE | 2022-01-19 19:09 | ED_ITS ---
HPI - General Adult General Chief complaint: Dizziness Stated complaint: high bp Time Seen by Provider: 01/19/22 19:09 Source: patient Mode of arrival: ambulatory Limitations: no limitations History of Present Illness HPI narrative: Patient history of hypertension for few years on losartan and carvedilol used to be on amlodipine before stopped about a month ago since then patient noticed blood pressure is on the higher range today it went to 2 1/106 with pulse rate around 60 patient feel dizzy no headache no nausea no vomiting in the triage patient blood pressure 194/120 for re-examine blood pressure was 186/62 no chest pain or palpitation no shortness of breath Related Data Home Medications Medication Instructions Recorded Confirmed glucosamine sulfate 1,000 mg 1,000 mg PO DAILY 02/08/20 01/03/22 capsule multivitamin 1 tab PO DAILY 02/08/20 01/03/22 aspirin 81 mg tablet,delayed 81 mg PO DAILY 02/24/20 01/03/22 release (Adult Aspirin Regimen) denosumab 60 mg/mL subcutaneous 60 mg subcut [id number] 05/16/20 01/03/22 syringe (Prolia) magnesium 250 mg tablet 250 mg PO DAILY 05/24/21 01/03/22 acetaminophen 650 mg 650 mg PO Q6H PRN Pain (Scale 10/18/21 01/03/22 tablet,extended release (Tylenol Score 1-3) Arthritis Pain) lansoprazole 30 mg capsule,delayed 30 mg PO DAILY@0630 10/18/21 01/03/22 release carvedilol 12.5 mg tablet 12.5 mg PO BID 01/03/22 01/03/22 Previous Rx's Medication Instructions Recorded tiotropium bromide 18 mcg capsule 1 cap inhalation DAILY 90 days #90 01/03/21 with inhalation device inhalations losartan 100 mg tablet 100 mg PO DAILY 90 days #90 tabs 06/01/21 atorvastatin 40 mg tablet 40 mg PO BEDTIME 30 days #30 tabs 10/19/21 nitrofurantoin macrocrystal 100 mg 100 mg PO BEDTIME 90 days #90 caps 10/31/21 capsule chlorthalidone 25 mg tablet 25 mg PO DAILY 90 days #90 tabs 11/12/21 ezetimibe 10 mg tablet 10 mg PO DAILY 90 days #90 tabs 12/04/21 tolterodine 4 mg capsule,extended 4 mg PO DAILY 90 days #90 caps 01/02/22 release 24 hr Allergies Allergy/AdvReac Type Severity Reaction Status Date / Time cephalexin [Keflex] Allergy Intermediate Unknown Verified 01/03/22 11:12 tetracycline [Tetracycline] Allergy Intermediate TONGUE Verified 01/03/22 11:12 SWOLLEN Review of Systems Review of Systems: Yes all other systems are reviewed and are negative [facility] Past Medical History Medical History COPD (chronic obstructive pulmonary disease) Dyslipidemia Frequent UTI GERD (gastroesophageal reflux disease) Hearing loss History of ductal carcinoma in situ (DCIS) of breast Hospital discharge follow-up Hypercalcemia Hypercalcemia Hypertension Left hip pain Left sided sciatica Left-sided weakness Multiple lacunar infarcts Osteoporosis Screening for breast cancer Urge urinary incontinence Vitamin D deficiency Surgical History H/O right inguinal hernia repair History of colonoscopy History of lumpectomy of right breast History of pubovaginal sling Family History Family History Father Heart failure CVD (cardiovascular disease) Mother Breast cancer Social History Social History Household Members: None Housing: House Do you presently have visiting nurse or other home services: No Alcohol intake: current Alcohol intake frequency: holidays/special occasions only Alcohol type: wine Patient Tobacco Use Status: Former Tobacco user Quit Date: 02/04/91 Tobacco use type: Cigarette e-Cigarette/Vaping Use: Never Used Second Hand Smoke Exposure: No Advance Directives: Yes Advance Directives on File: Yes Advance Directives Date on File: 10/19/21 service: No Current occupational status: retired Cognitive needs: No Hearing needs: Yes (hearing aide) Vision needs: No (glaases) Physical Exam ED Vital Signs: Vital Signs - 24 hr 01/19/22 18:46 01/19/22 19:47 01/19/22 20:18 Temperature 98.3 F Pulse Rate 60 56 58 Respiratory Rate 17 16 14 Blood Pressure 194/125 H 169/54 H 172/70 H Pulse Oximetry 100 100 100 Oxygen Delivery Method Room Air Room Air Room Air BMI result Body Mass Index 24.5 Appearance: Alert. Oriented X3. No acute distress. Eyes: PERRLA, No Nystagmus ENT: Pharynx normal. Oral Mucosa moist Neck: Normal inspection. Neck supple. CVS: Normal heart rate and rhythm. Pulses normal. Respiratory: No respiratory distress. Equal air entry bilateral, no wheez ing/rales/rhonchi Abdomen: Soft and nontender. Bowel sounds are present, no mass palpable, no CVA tenderness Skin: Skin warm and dry. Normal skin color. Normal skin turgor. Extremities: No lower extremity edema. No calf tenderness Neuro: Oriented X 3. No motor deficit. No sensory deficit.No cerebellar signs , cranial nerves II-XII intact Medical Decision Making MDM Narrative Medical decision making narrative: Patient with essential hypertension with recent change change in medications bl ood pressure elevated asymptomatic labs are stable will restart patient on amlodipine 5 mg daily blood pressure after giving amlodipine 164/72 with pulse rate of 57 Lab Data Lab results reviewed: Yes I reviewed the patient's lab results. Result diagrams: 01/19/22 19:38 01/19/22 19:38 Labs: Lab Results 01/19/22 01/19/22 Range/Units 19:38 19:38 WBC 5.4 (4.8-10.8) X10*3/uL RBC 3.57 L (4.20-5.50) X10*6/uL Hgb 10.7 L (12.0-16.0) g/dl Hct 32.9 L (37.0-47.0) % MCV 92.2 (80.0-98.0) fL MCH 30.0 (27.0-33.0) pg MCHC 32.5 (31.0-35.0) g/dl RDW 13.3 (11.0-16.0) % Plt Count 214 D (160-400) X10*3/uL MPV 9.9 (9.4-12.3) fL Immature Gran % (Auto) 0.2 (0.0-0.4) % Neut % (Auto) 59.5 (45-73) % Lymph % (Auto) 24.4 (20-40) % [place] % (Auto) 11.8 H (2-11) % Eos % (Auto) 3.9 (0-4) % Baso % (Auto) 0.2 (0-2) % Lymph # (Auto) 1.3 (1.2-4.9) X10*3/uL [place] # (Auto) 0.6 (0.1-1.2) X10*3/uL Eos # (Auto) 0.2 (0.0-0.4) X10*3/uL Baso # (Auto) 0.0 (0.0-0.2) X10*3/uL Abs Immat Gran (auto) 0.01 (0.00-0.03) X10*3/uL Absolute Neuts (auto) 3.2 (2.0-8.3) x10*3/uL Absolute Nucleated RBC 0.000 (0.0-0.012) X10*3/uL Nucleated RBC % (auto) 0.0 (0.0-0.2) /100WBC Sodium 142 (135-145) mmol/L Potassium 4.5 D (3.3-5.1) mmol/L Chloride 108 (96-108) mmol/L Carbon Dioxide 21 L (22-29) mmol/L Anion Gap 18 (12-20) BUN 22 H (9-16) mg/dL Creatinine 0.81 (0.5-1.4) mg/dL Estim Creat Clear Calc 39.4 Estimated GFR > 60 Random Glucose 101 (60-115) mg/dL Calcium 9.4 (8.4-10.2) mg/dL Total Bilirubin 0.7 (0.0-1.0) mg/dL AST 22 (5-31) U/L ALT 20 (0-31) U/L Alkaline Phosphatase 84 (39-117) U/L Total Protein 6.1 L (6.5-8.0) g/dL Albumin 3.8 (3.5-5.0) g/dL ECG Data Attestation: I personally reviewed and interpreted this ECG as follows: Interpretation: Sinus bradycardia heart rate 57 beats per minute at no acute ischemic changes low voltage Discharge Plan Discharge Clinical Impression: Essential hypertension Patient Disposition: Home, Self-Care Instructions: Chronic Hypertension (ED) Additional Instructions: Start taking amlodipine again 5 mg daily along with carvedilol and losartan 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 Check blood pressure daily it should be less than 130/85 Prescriptions: No Action tiotropium bromide 18 mcg capsule, w/inhalation device 1 cap inhalation DAILY 90 Days Qty: 90 3RF losartan 100 mg tablet 100 mg PO DAILY 90 Days Qty: 90 3RF nitrofurantoin macrocrystal 100 mg capsule 100 mg PO BEDTIME 90 Days Qty: 90 3RF Rx Instructions: must administer with a meal/food chlorthalidone 25 mg tablet 25 mg PO DAILY 90 Days Qty: 90 1RF ezetimibe 10 mg tablet 10 mg PO DAILY 90 Days Qty: 90 3RF tolterodine 4 mg capsule,extended release 24hr 4 mg PO DAILY 90 Days Qty: 90 3RF acetaminophen [Tylenol Arthritis Pain] 650 mg tablet extended release 650 mg PO Q6H PRN (Reason: Pain (Scale Score 1-3)) lansoprazole 30 mg capsule,delayed release(DR/EC) 30 mg PO DAILY@0630 atorvastatin 40 mg Tablet 40 mg PO BEDTIME 30 Days Qty: 30 0RF Prolia 60 mg/mL syringe 60 mg subcut [id number] Rx Instructions: last dose may 2021 carvedilol 12.5 mg tablet 12.5 mg PO BID glucosamine sulfate 1,000 mg capsule 1,000 mg PO DAILY Rx Instructions: administer with meals multivitamin Tablet 1 tab PO DAILY aspirin [Adult Aspirin Regimen] 81 mg tablet,delayed release (DR/EC) 81 mg PO DAILY magnesium 250 mg tablet 250 mg PO DAILY
--- NOTE | 2022-01-19 19:12 | ECG_ITS ---
Test Reason : HYPERTENSION Blood Pressure : / mmHG Vent. Rate : 057 BPM Atrial Rate : 057 BPM P-R Int : 172 ms QRS Dur : 096 ms QT Int : 448 ms P-R-T Axes : 055 088 051 degrees QTc Int : 436 ms Sinus bradycardia Low voltage QRS Borderline ECG When compared with ECG of 18-OCT-2021 16:43, Heart rate has decreased Referred By: Jeronimo Ty Electronically Signed By:MALIKA BARKER
[2022-01-19] MEDS: amLODIPine Besylate 2.5 MG TABLET 5 MG PO (19:29)
[2022-01-19 19:42] LABS: MANUAL DIFF FLAG NO
[2022-01-19 19:47] VITALS: BP 169/54; PULSE 56; RESP 16; TEMP 36.8; O2SAT 100
[2022-01-19 19:47] LABS: Basophils Percent Auto 0.2 % (0-2); Eosinophils Absolute Auto 0.2 X10*3/uL (0.0-0.4); Eosinophils Percent Auto 3.9 % (0-4); Hematocrit 32.9 % (37.0-47.0); Hemoglobin 10.7 g/dl (12.0-16.0); Imm Gran Abs Auto 0.01 X10*3/uL (0.00-0.03); Imm Gran Pct Auto 0.2 % (0.0-0.4); Lymphocytes Absolute Auto 1.3 X10*3/uL (1.2-4.9); Lymphocytes Percent Auto 24.4 % (20-40); Mean Corpuscular HGB Conc 32.5 g/dl (31.0-35.0); Mean Corpuscular Volume 92.2 fL (80.0-98.0); Mean Platelet Volume 9.9 fL (9.4-12.3); Monocytes Absolute Auto 0.6 X10*3/uL (0.1-1.2); Monocytes Percent Auto 11.8 % (2-11); Neutrophils Absolute Auto 3.2 x10*3/uL (2.0-8.3); Neutrophils Percent Auto 59.5 % (45-73); Platelet Count 214 X10*3/uL (160-400); Red Blood Count 3.57 X10*6/uL (4.20-5.50); Red Cell Distribution Width 13.3 % (11.0-16.0); White Blood Count 5.4 X10*3/uL (4.8-10.8)
[2022-01-19 20:05] LABS: Alanine Aminotransferase 20 U/L (0-31); Albumin Level 3.8 g/dL (3.5-5.0); Alkaline Phosphatase 84 U/L (39-117); Anion Gap 18 (12-20); Aspartate Amino Transferase 22 U/L (5-31); Bilirubin Total 0.7 mg/dL (0.0-1.0); Blood Urea Nitrogen 22 mg/dL (9-16); Calcium 9.4 mg/dL (8.4-10.2); Carbon Dioxide 21 mmol/L (22-29); Chloride 108 mmol/L (96-108); Creatinine Clr Calc Pharmacy 39.4; Estimated Glomerular Filt Rate > 60; Glucose Random 101 mg/dL (60-115); Potassium 4.5 mmol/L (3.3-5.1); Sodium 142 mmol/L (135-145); Total Protein 6.1 g/dL (6.5-8.0)
[2022-01-19 20:18] VITALS: BP 172/70; PULSE 58; RESP 14; O2SAT 100
[2022-01-19 21:18] VITALS: BP 177/56; PULSE 59; RESP 18; O2SAT 97
--- NOTE | 2022-01-19 21:30 | PC.NURSE ---
Pt.'s BP elevated at time of discharge to 177/56. Provider MD Bharat aware and OK to continue discharge.
== END 2022-01-19 21:32 | disposition home or self-care (01) ==
PROVIDERS: Emergency Provider Internal Medicine; PCP Internal Medicine
DX: I10 Essential (primary) hypertension (principal); R42 Dizziness and giddiness; E78.5 Hyperlipidemia, unspecified; Z79.82 Long term (current) use of aspirin; Z79.899 Other long term (current) drug therapy; Z79.02 Long term (current) use of antithrombotics/antiplatelets; Z87.891 Personal history of nicotine dependence
CPT/HCPCS: 36415; 80053; 85025; 93005; 99283; 99284

== ENCOUNTER 2022-01-31 09:58 | Outpatient (REF) | payer MEDICARE, OTHER, SELFPAY ==
--- NOTE | ~2022-01-31 | MM_ITS ---
EXAMINATION: MM SCREENING DIGITAL BREAST TOMOSYNTHESIS, BILATERAL CLINICAL INFORMATION: Screening. Asymptomatic. Status post previous right breast lumpectomy. COMPARISON: Mammography: December 22, 2020 and studies dating back to November 07, 2015 TECHNIQUE: Digital breast tomosynthesis is performed in both the craniocaudal and mediolateral oblique views along with computer-aided detection (CAD). Synthesized 2D images are generated from the tomosynthesis. FINDINGS: There are scattered areas of fibroglandular density (ACR BI-RADS breast composition Category b). There are no new significant masses, abnormal calcifications, or other abnormalities. Postsurgical change right breast again seen. MM/MM tomosynthesis screening BI IMPRESSION: No significant changes from prior exam. ASSESSMENT: BI-RADS 2: Benign RECOMMENDATION: Routine annual mammography screening. This patient's information was entered into a reminder system with a target due date for their next mammogram.
== END 2022-01-31 09:59 | disposition home or self-care (01) ==
LOC: HO.MAMMO 09:58
PROVIDERS: PCP Internal Medicine; Visit Provider Nurse Practitioner Family
DX: Z12.31 Encounter for screening mammogram for malignant neoplasm of breast (principal)
CPT/HCPCS: 77063; 77067

== ENCOUNTER → 2022-02-15 09:51 | Outpatient (BNVA) | payer MEDICARE, OTHER, SELFPAY | PROVIDERS: PCP Internal Medicine; Visit Provider Surgery | DX: Z86.000 Personal history of in-situ neoplasm of breast (principal) | CPT/HCPCS: 99212 ==

== ENCOUNTER 2022-05-02 09:54 | Outpatient (REF) | payer MEDICARE, OTHER, SELFPAY ==
[2022-05-02 12:25] LABS: Alanine Aminotransferase 23 U/L (0-31); Albumin Level 3.8 g/dL (3.5-5.0); Alkaline Phosphatase 75 U/L (39-117); Anion Gap 11 (12-20); Aspartate Amino Transferase 22 U/L (5-31); Bilirubin Total 0.7 mg/dL (0.0-1.0); Blood Urea Nitrogen 22 mg/dL (9-16); Calcium 9.7 mg/dL (8.4-10.2); Carbon Dioxide 26 mmol/L (22-29); Chloride 108 mmol/L (96-108); Cholesterol 156 mg/dL; Estimated Glomerular Filt Rate > 60; Glucose Fasting 99 mg/dL (60-99); HDL Cholesterol 62 mg/dL; LDL Cholesterol Calculated 78 mg/dl; Potassium 3.6 mmol/L (3.3-5.1); Sodium 141 mmol/L (135-145); Total Protein 6.3 g/dL (6.5-8.0); Triglycerides 83 mg/dL; Vitamin D 25-OH Total 43.8 ng/mL (>30)
[2022-05-03 16:44] LABS: Calcium (PTHI) 9.6 mg/dL (8.6-10.4); PTHI 59 pg/mL (16-77)
[2022-05-08 18:43] LABS: N-Telopeptide 25 (see note); NTXCreaRU 68 mg/dL (20-275)
== END 2022-05-02 09:55 | disposition home or self-care (01) ==
LOC: HO.10HDL 09:54
PROVIDERS: Absent Provider Internal Medicine; Visit Provider Internal Medicine
DX: M81.0 Age-related osteoporosis without current pathological fracture (principal); E55.9 Vitamin D deficiency, unspecified; I10 Essential (primary) hypertension; E78.5 Hyperlipidemia, unspecified
CPT/HCPCS: 36415; 80053; 80061; 82306; 82523; 83970; 84100

== ENCOUNTER → 2022-05-13 11:35 | Outpatient (BNVA) | payer MEDICARE, OTHER, SELFPAY | PROVIDERS: PCP Internal Medicine; Visit Provider Internal Medicine | DX: Z13.89 Encounter for screening for other disorder (principal) | CPT/HCPCS: 99212 ==

== ENCOUNTER 2022-05-13 12:04 | Emergency (ER) | payer MEDICARE, OTHER, SELFPAY ==
--- NOTE | ~2022-05-13 | XR_ITS ---
EXAMINATION: XR PELVIS WITH RIGHT HIP XR FEMUR, RIGHT CLINICAL INFORMATION: Pain. History hypercalcemia, breast cancer. COMPARISON: CT abdomen and pelvis 01/15/2019 TECHNIQUE: AP view of the pelvis is performed along with AP and frog-lateral projections right hip. The right femur is also imaged in AP and lateral views. There are total of 5 views. FINDINGS: There is no fracture, dislocation, destructive process, or suspicious bony lesion. There are degenerative disc changes lumbosacral junction and mild bilateral SI joint degenerative changes. The pubis is unremarkable. The left hip shows some mineralization adjacent to the superior aspect greater trochanter, likely related to calcific tendinosis near the tendon insertion. The right hip has prominent osteoarthritic changes with joint narrowing and subchondral sclerosis and variable small geodes and osteophytes. Remainder of the right femur is unremarkable. There is spurring at the quadriceps insertion patella. Scattered atherosclerotic calcifications are present in the iliac and femoral arteries. XR/XR femur RT 2V IMPRESSION: 1. Prominent osteoarthritis right hip. 2. Degenerative disc changes lumbosacral junction. Mild bilateral SI joint degenerative changes. 3. Calcification adjacent to left greater trochanter, likely calcific tendinosis near tendon insertion.
--- NOTE | ~2022-05-13 | XR_ITS ---
EXAMINATION: XR PELVIS WITH RIGHT HIP XR FEMUR, RIGHT CLINICAL INFORMATION: Pain. History hypercalcemia, breast cancer. COMPARISON: CT abdomen and pelvis 01/15/2019 TECHNIQUE: AP view of the pelvis is performed along with AP and frog-lateral projections right hip. The right femur is also imaged in AP and lateral views. There are total of 5 views. FINDINGS: There is no fracture, dislocation, destructive process, or suspicious bony lesion. There are degenerative disc changes lumbosacral junction and mild bilateral SI joint degenerative changes. The pubis is unremarkable. The left hip shows some mineralization adjacent to the superior aspect greater trochanter, likely related to calcific tendinosis near the tendon insertion. The right hip has prominent osteoarthritic changes with joint narrowing and subchondral sclerosis and variable small geodes and osteophytes. Remainder of the right femur is unremarkable. There is spurring at the quadriceps insertion patella. Scattered atherosclerotic calcifications are present in the iliac and femoral arteries. XR/XR hip RT w PEL1V IMPRESSION: 1. Prominent osteoarthritis right hip. 2. Degenerative disc changes lumbosacral junction. Mild bilateral SI joint degenerative changes. 3. Calcification adjacent to left greater trochanter, likely calcific tendinosis near tendon insertion.
[2022-05-13 12:08] VITALS: BP 204/53; PULSE 77; RESP 16; TEMP 36.1; O2SAT 97; BMI 22.3
--- NOTE | 2022-05-13 12:08 | ED_ITS ---
HPI - General Adult General Chief complaint: General Medical <LUKE Ny - Last Filed: 05/13/22 12:12> Stated complaint: HBP <LUKE Ny - Last Filed: 05/13/22 12:12> Time Seen by Provider: 05/13/22 14:24 <ULKE Ny - Last Filed: 05/13/22 12:12> Source: patient <Milly Olivares MD - Last Filed: 05/13/22 18:45> Mode of arrival: ambulatory <Milly Olivares MD - Last Filed: 05/13/22 18:45> Limitations: no limitations <Milly Olivares MD - Last Filed: 05/13/22 18:45> History of Present Illness HPI narrative: Patient comes to the emergency room from the Endocrinology suite. Patient was seen today for follow-up for hypercalcemia and hypertension. Blood pressure was elevated, above 200 systolic. Patient denies any headache, visual changes, chest pain or shortness of breath. Patient states she is compliant with her medications, takes losartan 100 mg daily, amlodipine 2.5 mg, and carvedilol 12.5 mg. Also, patient mentioned that she has acute on chronic pain in her right femur. Patient denies any trauma. Patient has history of hypercalcemia, breast cancer in remission. <Milly Olivares MD - Last Filed: 05/13/22 18:45> Related Data Home medications: Home Medications Medication Instructions Recorded Confirmed glucosamine sulfate 1,000 mg 1,000 mg PO DAILY 02/08/20 05/13/22 capsule multivitamin 1 tab PO DAILY 02/08/20 05/13/22 aspirin 81 mg tablet,delayed 81 mg PO DAILY 02/24/20 05/13/22 release (Adult Aspirin Regimen) denosumab 60 mg/mL subcutaneous 60 mg subcut [id number] 05/16/20 05/13/22 syringe (Prolia) magnesium 250 mg tablet 250 mg PO DAILY 05/24/21 05/13/22 acetaminophen 650 mg 650 mg PO Q6H PRN Pain (Scale 10/18/21 05/13/22 tablet,extended release (Tylenol Score 1-3) Arthritis Pain) carvedilol 12.5 mg tablet 12.5 mg PO BID 01/03/22 05/13/22 Previous Rx's Medication Instructions Recorded tiotropium bromide 18 mcg capsule 1 cap inhalation DAILY 90 days #90 01/03/21 with inhalation device inhalations losartan 100 mg tablet 100 mg PO DAILY 90 days #90 tabs 06/01/21 atorvastatin 40 mg tablet 40 mg PO BEDTIME 30 days #30 tabs 10/19/21 nitrofurantoin macrocrystal 100 mg 100 mg PO BEDTIME 90 days #90 caps 10/31/21 capsule ezetimibe 10 mg tablet 10 mg PO DAILY 90 days #90 tabs 12/04/21 tolterodine 4 mg capsule,extended 4 mg PO DAILY 90 days #90 caps 01/02/22 release 24 hr lansoprazole 30 mg capsule,delayed 30 mg PO DAILY@0630 #90 caps 02/27/22 release chlorthalidone 25 mg tablet 25 mg PO DAILY 90 days #90 tabs 05/06/22 amlodipine 5 mg tablet 5 mg PO DAILY #30 tabs 05/13/22 <LUKE Ny - Last Filed: 05/13/22 12:12> Allergies/adverse reactions: Allergies Allergy/AdvReac Type Severity Reaction Status Date / Time cephalexin [Keflex] Allergy Intermediate Unknown Verified 05/13/22 12:11 tetracycline [Tetracycline] Allergy Intermediate TONGUE Verified 05/13/22 12:11 SWOLLEN <LUKE Ny - Last Filed: 05/13/22 12:12> [facility] Past Medical History Medical History: Medical History (Updated 05/13/22 @ 18:24 by Milly Olivares MD) COPD (chronic obstructive pulmonary disease) Dyslipidemia Frequent UTI GERD (gastroesophageal reflux disease) Hearing loss History of ductal carcinoma in situ (DCIS) of breast Hospital discharge follow-up Hypercalcemia Hypercalcemia Hypertension Hypertensive urgency Left hip pain Left sided sciatica Left-sided weakness Multiple lacunar infarcts Osteoporosis Screening for breast cancer Urge urinary incontinence Vitamin D deficiency <LUKE Ny - Last Filed: 05/13/22 12:12> Surgical History: Surgical History H/O right inguinal hernia repair History of colonoscopy History of lumpectomy of right breast History of pubovaginal sling <LUKE Ny - Last Filed: 05/13/22 12:12> Family History Family History: Family History Father Heart failure CVD (cardiovascular disease) Mother Breast cancer <LUKE Ny - Last Filed: 05/13/22 12:12> Social History Social History: Social History Household Members: None Housing: House Do you presently have visiting nurse or other home services: No Alcohol intake: current Alcohol intake frequency: does not drink Alcohol type: wine Patient Tobacco Use Status: Former Tobacco user Quit Date: 02/04/91 Tobacco use type: Cigarette e-Cigarette/Vaping Use: Never Used Second Hand Smoke Exposure: No Advance Directives Date on File: 10/19/21 service: No Current occupational status: retired Cognitive needs: No Hearing needs: Yes (hearing aide) Vision needs: No (glaases) <LUKE Ny - Last Filed: 05/13/22 12:12> Physical Exam ED Vital Signs: Vital Signs - 24 hr 05/13/22 12:08 05/13/22 14:00 05/13/22 18:19 Temperature 96.9 F Pulse Rate 77 64 56 Respiratory Rate 16 18 Blood Pressure 204/53 H 186/60 H 153/60 H Pulse Oximetry 97 100 Oxygen Delivery Method Room Air Room Air BMI result Body Mass Index 22.3 <LUKE Ny - Last Filed: 05/13/22 12:12> Vital Signs - 24 hr 05/13/22 12:08 05/13/22 14:00 05/13/22 18:19 Temperature 96.9 F Pulse Rate 77 64 56 Respiratory Rate 16 18 Blood Pressure 204/53 H 186/60 H 153/60 H Pulse Oximetry 97 100 Oxygen Delivery Method Room Air Room Air BMI result Body Mass Index 22.3 <Milly Olivares MD - Last Filed: 05/13/22 18:45> Course Course Course Narrative: RME - 87 yo female with history of uncontrolled HTN, hx HTN urgency, COPD, GERD, osteoporosis, HLD, hx CVA, breast cancer who presents to the ER from Endocrinology office for evaluation of very elevated BP. She states she has not been feeling well lately. She has had right hip and bilateral leg pain, reports swelling of the left leg. Decreased energy. BP 204/53 , HR 60s, AAO, appears well- reports headache associated with elevated BP. No chest pain or vision changes. Compliant with all of her medications which she took this morning. Will check basic labs and UA. <LUKE Ny - Last Filed: 05/13/22 12:12> Medications Administered Discontinued Medications Generic Name Dose Route Start Last Admin Trade Name Freq PRN Reason Stop Dose Admin Labetalol HCl 100 mg 05/13/22 14:39 05/13/22 15:46 Labetalol Hcl 100 Mg Tablet PO 05/13/22 14:40 100 mg ONCE ONE Administration Protocol <LUKE Ny - Last Filed: 05/13/22 12:12> Medications Administered Discontinued Medications Generic Name Dose Route Start Last Admin Trade Name Freq PRN Reason Stop Dose Admin Labetalol HCl 100 mg 05/13/22 14:39 05/13/22 15:46 Labetalol Hcl 100 Mg Tablet PO 05/13/22 14:40 100 mg ONCE ONE Administration Protocol <Milly Olivares MD - Last Filed: 05/13/22 18:45> Medical Decision Making Medical Decision Making [facility] Narrative: -patient's troponin negative, -blood pressure 153/60, patient asymptomatic. -discussed with patient to increase her amlodipine to 5 mg, she may need to go back on 10 mg. <Milly Olivares MD - Last Filed: 05/13/22 18:45> Lab Data [facility] Lab Attestation statement: I reviewed the patient's lab results. <Milly Olivares MD - Last Filed: 05/13/22 18:45> Result Diagrams: 05/13/22 12:24 05/13/22 12:24 <LUKE Ny - Last Filed: 05/13/22 12:12> Labs: Lab Results 05/13/22 05/13/22 05/13/22 Range/Units 12:24 12:24 15:19 WBC 6.2 (4.8-10.8) X10*3/uL RBC 3.73 L (4.20-5.50) X10*6/uL Hgb 11.3 L (12.0-16.0) g/dl Hct 34.6 L (37.0-47.0) % MCV 92.8 (80.0-98.0) fL MCH 30.3 (27.0-33.0) pg MCHC 32.7 (31.0-35.0) g/dl RDW 13.7 (11.0-16.0) % Plt Count 273 D (160-400) X10*3/uL MPV 9.7 (9.4-12.3) fL Immature Gran % (Auto) 0.2 (0.0-0.4) % Neut % (Auto) 66.6 (45-73) % Lymph % (Auto) 21.5 (20-40) % [place] % (Auto) 9.0 (2-11) % Eos % (Auto) 2.4 (0-4) % Baso % (Auto) 0.3 (0-2) % Lymph # (Auto) 1.3 (1.2-4.9) X10*3/uL [place] # (Auto) 0.6 (0.1-1.2) X10*3/uL Eos # (Auto) 0.2 (0.0-0.4) X10*3/uL Baso # (Auto) 0.0 (0.0-0.2) X10*3/uL Abs Immat Gran (auto) 0.01 (0.00-0.03) X10*3/uL Absolute Neuts (auto) 4.1 (2.0-8.3) x10*3/uL Absolute Nucleated RBC 0.000 (0.0-0.012) X10*3/uL Nucleated RBC % (auto) 0.0 (0.0-0.2) /100WBC Sodium 148 H (135-145) mmol/L Potassium 4.4 D (3.3-5.1) mmol/L Chloride 110 H (96-108) mmol/L Carbon Dioxide 29 (22-29) mmol/L Anion Gap 13 (12-20) BUN 22 H (9-16) mg/dL Creatinine 0.78 (0.5-1.4) mg/dL Estim Creat Clear Calc 33.5 Estimated GFR > 60 Random Glucose 115 (60-115) mg/dL Calcium 10.7 H D (8.4-10.2) mg/dL Magnesium 1.6 (1.6-2.6) mg/dL Total Bilirubin 0.6 (0.0-1.0) mg/dL Direct Bilirubin 0.2 (0.0-0.5) mg/dL AST 20 (5-31) U/L ALT 17 (0-31) U/L Alkaline Phosphatase 70 (39-117) U/L Troponin I High Sens 3.6 (<3.5-17.0) ng/L Total Protein 6.2 L (6.5-8.0) g/dL Albumin 3.8 (3.5-5.0) g/dL <LUKE Ny - Last Filed: 05/13/22 12:12> Lab Results 05/13/22 05/13/22 05/13/22 Range/Units 12:24 12:24 15:19 WBC 6.2 (4.8-10.8) X10*3/uL RBC 3.73 L (4.20-5.50) X10*6/uL Hgb 11.3 L (12.0-16.0) g/dl Hct 34.6 L (37.0-47.0) % MCV 92.8 (80.0-98.0) fL MCH 30.3 (27.0-33.0) pg MCHC 32.7 (31.0-35.0) g/dl RDW 13.7 (11.0-16.0) % Plt Count 273 D (160-400) X10*3/uL MPV 9.7 (9.4-12.3) fL Immature Gran % (Auto) 0.2 (0.0-0.4) % Neut % (Auto) 66.6 (45-73) % Lymph % (Auto) 21.5 (20-40) % [place] % (Auto) 9.0 (2-11) % Eos % (Auto) 2.4 (0-4) % Baso % (Auto) 0.3 (0-2) % Lymph # (Auto) 1.3 (1.2-4.9) X10*3/uL [place] # (Auto) 0.6 (0.1-1.2) X10*3/uL Eos # (Auto) 0.2 (0.0-0.4) X10*3/uL Baso # (Auto) 0.0 (0.0-0.2) X10*3/uL Abs Immat Gran (auto) 0.01 (0.00-0.03) X10*3/uL Absolute Neuts (auto) 4.1 (2.0-8.3) x10*3/uL Absolute Nucleated RBC 0.000 (0.0-0.012) X10*3/uL Nucleated RBC % (auto) 0.0 (0.0-0.2) /100WBC Sodium 148 H (135-145) mmol/L Potassium 4.4 D (3.3-5.1) mmol/L Chloride 110 H (96-108) mmol/L Carbon Dioxide 29 (22-29) mmol/L Anion Gap 13 (12-20) BUN 22 H (9-16) mg/dL Creatinine 0.78 (0.5-1.4) mg/dL Estim Creat Clear Calc 33.5 Estimated GFR > 60 Random Glucose 115 (60-115) mg/dL Calcium 10.7 H D (8.4-10.2) mg/dL Magnesium 1.6 (1.6-2.6) mg/dL Total Bilirubin 0.6 (0.0-1.0) mg/dL Direct Bilirubin 0.2 (0.0-0.5) mg/dL AST 20 (5-31) U/L ALT 17 (0-31) U/L Alkaline Phosphatase 70 (39-117) U/L Troponin I High Sens 3.6 (<3.5-17.0) ng/L Total Protein 6.2 L (6.5-8.0) g/dL Albumin 3.8 (3.5-5.0) g/dL <Milly Olivares MD - Last Filed: 05/13/22 18:45> Independent Interpretation I performed an independent interpretation of an: EKG (EKG my interpretation: Sinus bradycardia, heart rate 57, no ST segment depression or elevation, no T-wave inversion.) and Plain X-Ray (Femur and hip x-rays my interpretation: Femur within normal limits, patient has severe osteoarthritis in the right hip, no fracture) <Milly Olivares MD - Last Filed: 05/13/22 18:45> Radiology Impression Discussion of test interpretation with radiology: I have reviewed the radiologist's reading. <Milly Olivares MD - Last Filed: 05/13/22 18:45> Radiologist Impression: EXAMINATION: XR PELVIS WITH RIGHT HIP XR FEMUR, RIGHT CLINICAL INFORMATION: Pain. History hypercalcemia, breast cancer.? COMPARISON: CT abdomen and pelvis 01/15/2019? TECHNIQUE: AP view of the pelvis is performed along with AP and frog-lateral projections right hip. The right femur is also imaged in AP and lateral views. There are total of 5 views.? FINDINGS: There is no fracture, dislocation, destructive process, or suspicious bony lesion. There are degenerative disc changes lumbosacral junction and mild bilateral SI joint degenerative changes. The pubis is unremarkable. The left hip shows some mineralization adjacent to the superior aspect greater trochanter, likely related to calcific tendinosis near the tendon insertion. The right hip has prominent osteoarthritic changes with joint narrowing and subchondral sclerosis and variable small geodes and osteophytes. Remainder of the right femur is unremarkable. There is spurring at the quadriceps insertion patella. Scattered atherosclerotic calcifications are present in the iliac and femoral arteries.? XR/XR hip RT w [id number] IMPRESSION: 1. Prominent osteoarthritis right hip. 2. Degenerative disc changes lumbosacral junction. Mild bilateral SI joint degenerative changes. 3. Calcification adjacent to left greater trochanter, likely calcific tendinosis near tendon insertion <Milly Olivares MD - Last Filed: 05/13/22 18:45> Discharge Plan Discharge Clinical Impression: Hypertension, Chronic hip pain <LUKE Ny - Last Filed: 05/13/22 12:12> Patient Disposition: Home, Self-Care <LUKE Ny - Last Filed: 05/13/22 12:12> Instructions: Hypertension (ED) <LUKE Ny - Last Filed: 05/13/22 12:12> Additional Instructions: Please follow-up with your primary care physician tomorrow. If you have any worsening or new symptoms, please return to the emergency room or call 911 <LUKE Ny - Last Filed: 05/13/22 12:12> Prescriptions: New amlodipine 5 mg tablet 5 mg PO DAILY Qty: 30 0RF No Action tiotropium bromide 18 mcg capsule, w/inhalation device 1 cap inhalation DAILY 90 Days Qty: 90 3RF losartan 100 mg tablet 100 mg PO DAILY 90 Days Qty: 90 3RF nitrofurantoin macrocrystal 100 mg capsule 100 mg PO BEDTIME 90 Days Qty: 90 3RF Rx Instructions: must administer with a meal/food ezetimibe 10 mg tablet 10 mg PO DAILY 90 Days Qty: 90 3RF tolterodine 4 mg capsule,extended release 24hr 4 mg PO DAILY 90 Days Qty: 90 3RF lansoprazole 30 mg capsule,delayed release(DR/EC) 30 mg PO DAILY@0630 Qty: 90 0RF chlorthalidone 25 mg tablet 25 mg PO DAILY 90 Days Qty: 90 1RF acetaminophen [Tylenol Arthritis Pain] 650 mg tablet extended release 650 mg PO Q6H PRN (Reason: Pain (Scale Score 1-3)) atorvastatin 40 mg Tablet 40 mg PO BEDTIME 30 Days Qty: 30 0RF Prolia 60 mg/mL syringe 60 mg subcut [id number] Rx Instructions: last dose may 2021 carvedilol 12.5 mg tablet 12.5 mg PO BID glucosamine sulfate 1,000 mg capsule 1,000 mg PO DAILY Rx Instructions: administer with meals multivitamin Tablet 1 tab PO DAILY aspirin [Adult Aspirin Regimen] 81 mg tablet,delayed release (DR/EC) 81 mg PO DAILY magnesium 250 mg tablet 250 mg PO DAILY <LUKE Ny - Last Filed: 05/13/22 12:12>
[2022-05-13 12:34] LABS: MANUAL DIFF FLAG NO
[2022-05-13 12:38] LABS: Basophils Percent Auto 0.3 % (0-2); Eosinophils Absolute Auto 0.2 X10*3/uL (0.0-0.4); Eosinophils Percent Auto 2.4 % (0-4); Hematocrit 34.6 % (37.0-47.0); Hemoglobin 11.3 g/dl (12.0-16.0); Imm Gran Abs Auto 0.01 X10*3/uL (0.00-0.03); Imm Gran Pct Auto 0.2 % (0.0-0.4); Lymphocytes Absolute Auto 1.3 X10*3/uL (1.2-4.9); Lymphocytes Percent Auto 21.5 % (20-40); Mean Corpuscular HGB Conc 32.7 g/dl (31.0-35.0); Mean Corpuscular Hemoglobin 30.3 pg (27.0-33.0); Mean Corpuscular Volume 92.8 fL (80.0-98.0); Mean Platelet Volume 9.7 fL (9.4-12.3); Monocytes Absolute Auto 0.6 X10*3/uL (0.1-1.2); Neutrophils Absolute Auto 4.1 x10*3/uL (2.0-8.3); Neutrophils Percent Auto 66.6 % (45-73); Platelet Count 273 X10*3/uL (160-400); Red Blood Count 3.73 X10*6/uL (4.20-5.50); Red Cell Distribution Width 13.7 % (11.0-16.0); White Blood Count 6.2 X10*3/uL (4.8-10.8)
[2022-05-13 12:56] LABS: Alanine Aminotransferase 17 U/L (0-31); Albumin Level 3.8 g/dL (3.5-5.0); Alkaline Phosphatase 70 U/L (39-117); Anion Gap 13 (12-20); Aspartate Amino Transferase 20 U/L (5-31); Bilirubin Direct 0.2 mg/dL (0.0-0.5); Bilirubin Total 0.6 mg/dL (0.0-1.0); Blood Urea Nitrogen 22 mg/dL (9-16); Calcium 10.7 mg/dL (8.4-10.2); Carbon Dioxide 29 mmol/L (22-29); Chloride 110 mmol/L (96-108); Creatinine Clr Calc Pharmacy 33.5; Estimated Glomerular Filt Rate > 60; Glucose Random 115 mg/dL (60-115); Magnesium 1.6 mg/dL (1.6-2.6); Potassium 4.4 mmol/L (3.3-5.1); Sodium 148 mmol/L (135-145); Total Protein 6.2 g/dL (6.5-8.0)
[2022-05-13 14:00] VITALS: BP 186/60; PULSE 64; RESP 18; O2SAT 100
[2022-05-13] MEDS: Labetalol HCL 100 MG TABLET PO (15:46)
[2022-05-13 17:11] LABS: Troponin-I High Sensitivity 3.6 ng/L (<3.5-17.0)
--- NOTE | 2022-05-13 18:03 | ECG_ITS ---
Test Reason : HYPERTENSION Blood Pressure : / mmHG Vent. Rate : 057 BPM Atrial Rate : 057 BPM P-R Int : 208 ms QRS Dur : 104 ms QT Int : 450 ms P-R-T Axes : 039 101 034 degrees QTc Int : 438 ms Sinus bradycardia Incomplete right bundle branch block Possible Right ventricular hypertrophy Mild PA prolongation Abnormal ECG When compared with ECG of 19-JAN-2022 19:21, Incomplete right bundle branch block is now Present Referred By: Milly Olivares Electronically Signed By:HEAVENLY MOORE
[2022-05-13 18:19] VITALS: BP 153/60; PULSE 56
[2022-05-13 18:44] VITALS: BP 171/66; PULSE 70; RESP 16; TEMP 37; O2SAT 96
[2022-05-13 19:05] LABS: Appearance Urine Clear; Color Urine Yellow; Glucose Urine UA Negative (Negative); Leukocyte Esterase Urine Trace (Negative); Nitrite Urine Negative (Negative); PH 5.5 (5.0-9.0); Specific Gravity - Urine 1.015 (1.005-1.025); UMIC TRIGGER UACC YES; Urine Blood Negative (Negative); Urine Ketones Negative (Negative); Urine Protein Negative (Neg-Trace)
[2022-05-13 19:10] LABS: Bacteria Urine None Seen (None Seen); Hyaline Casts Urine 0-2 /LPF (0-2); RBC Urine 0-2 /HPF (0-2); Squamous Epithelial Cell Urine 0-2 /HPF (0-2); WBC Urine 0-5 /HPF (0-5)
== END 2022-05-13 19:00 | disposition home or self-care (01) ==
PROVIDERS: Physician Assistant; Emergency Provider Emergency Medicine
DX: I10 Essential (primary) hypertension (principal); G89.29 Other chronic pain; M25.551 Pain in right hip; E83.52 Hypercalcemia; M16.11 Unilateral primary osteoarthritis, right hip; E78.5 Hyperlipidemia, unspecified; Z85.3 Personal history of malignant neoplasm of breast; Z79.899 Other long term (current) drug therapy; Z79.82 Long term (current) use of aspirin; Z79.02 Long term (current) use of antithrombotics/antiplatelets; Z87.891 Personal history of nicotine dependence
CPT/HCPCS: 36415; 73502; 73552; 80048; 80076; 81001; 83735; 84484; 85025; 93005; 99212; 99283; 99284

== ENCOUNTER 2022-05-22 09:27 | Outpatient (REF) | payer MEDICARE, OTHER, SELFPAY | END 2022-05-22 09:28 | disposition home or self-care (01) | LOC: HO.SH 09:27 | PROVIDERS: Visit Provider Internal Medicine | DX: H90.3 Sensorineural hearing loss, bilateral (principal) | CPT/HCPCS: 92557 ==

== ENCOUNTER 2022-05-22 10:37 | Outpatient (REF) | payer SELFPAY ==
--- NOTE | 2022-05-22 13:16 | MHC.AU.MED ---
Medical Clearance for Hearing Instrumentation Date: 05/22/22 Patient Name: Chichi Cintron Date of : 1935 Primary Care Provider: Shirin Duron MD We have seen your patient on 05/22/22 and have determined that they are a candidate for amplification (See accompanying report). Specifically, they would benefit from: Hearing aid use in both ears There is a statute that addresses Medical Evaluation Requirements prior to fitting a patient with a hearing aid. According to [place] statute 265 CMR:6.03(1), (a) General. Except as provided in 265 CMR 6.03(1)(b), a hearing aid fitter shall not sell a hearing aid unless the prospective user has presented to the hearing aid fitter a written statement signed by a licensed physician that states that the patient's hearing loss has been medically evaluated and the patient may be considered a candidate for a hearing aid. The medical evaluation must have taken place within the preceding six months. Please note: Due to the [place] Statute referenced above, we cannot accept a signature other than that of a licensed physician. ELECTRICAL DESIGNER DRAFTER and PA signatures cannot be accepted. I am in agreement with the above recommendation. There is no medical contraindication for hearing instrumentation. Physician Signature Date Physician Name (Printed)
--- NOTE | 2022-05-22 13:30 | MHC.AU.HA1 ---
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 Although her hearing aids are still functioning, she is reportedly not hearing as well through them as when they were initially fit. Chichi would prefer to stay with Phonak special education professional as well as with a battery-powered hearing aid. She also opted for a c-shell with the additional canal lock to be similar to her current slim tips. Chichi reported that although she has a primarily quiet lifestyle, she still socializes with friends, goes out to restaurants at least once a week with her sister, and watches television. Hearing Aid Prescription: Based on the individual?s shared listening needs, communication environments, dexterity, desire for connectivity, and personal preferences, the following prescription for amplification has been made: Right ear: Make, Model, Color: Phonak Audeo P70-312 Color: Beige Battery Size: 312 Communications Billing Analyst/Slim Tube: 1P Type of Earmold/Dome/CShell/SlimTip: c-shell with canal lock Left ear: Left ear prescription to be same as Right Hearing Aid above: Make, Model, Color: Phonak Audeo P70-312 Color: Beige Battery Size: 312 Communications Billing Analyst/Slim Tube: 1P Type of Earmold/Dome/CShell/SlimTip: c-shell with canal lock Plan of Care: Patient wishes to purchase hearing aids as prescribed Action Taken/Action Needed: Earmold Impressions Taken. Medical Clearance to be requested from PCP/ENT. Hearing Instrument Fitting to be scheduled when materials arrive Primary Diagnosis: H90.3 Bilateral Sensorineural Hearing Loss Signature: Provider: Bean Gardner, [facility]
== END 2022-05-22 10:38 | disposition home or self-care (01) ==
LOC: HO.HAP 10:37
PROVIDERS: Visit Provider Internal Medicine
DX: Z46.1 Encounter for fitting and adjustment of hearing aid (principal); H90.3 Sensorineural hearing loss, bilateral
CPT/HCPCS: 92590

== ENCOUNTER → 2022-05-22 11:36 | Outpatient (BNVA) | payer MEDICARE, OTHER, SELFPAY | PROVIDERS: PCP Internal Medicine; Visit Provider Nurse Practitioner Family | DX: N39.0 Urinary tract infection, site not specified (principal); N39.41 Urge incontinence | CPT/HCPCS: 51798; 99212 ==

== ENCOUNTER → 2022-05-23 11:30 | Outpatient (BNVA) | payer MEDICARE, OTHER, SELFPAY | PROVIDERS: PCP Internal Medicine; Visit Provider Internal Medicine | DX: M81.0 Age-related osteoporosis without current pathological fracture (principal) | CPT/HCPCS: 96372; J0897 ==

== ENCOUNTER 2022-06-11 10:10 | Outpatient (REF) | payer SELFPAY ==
--- NOTE | 2022-06-11 11:37 | MHC.AU.HA2 ---
Hearing Instrument Fitting- Adult- Binaural Date of Visit: 06/11/22 Hearing Instruments Dispensed: Right Ear: Abdi, Model, Color, Serial Number: Junior Castillo [id number] SN: [id number] Color: Beige Senior Windows Engineer Repair Warranty: 08/28/2025 Senior Windows Engineer Loss and Damage Warranty: 08/28/2025 [facility] Service Plan: 06/11/2025 Battery Size: 312 Block Trimmer/Slim Tube: 1P Earmold/Dome/CShell/SlimTip: c-shell with canal lock SN: [id number] Warranty 08/27/2022 Type of Wax Guard: CeruStop Left Ear: Abdi, Model, Color, Serial Number: Junior Castillo [id number] SN: [id number] Color: Beige Senior Windows Engineer Repair Warranty: 08/28/2025 Senior Windows Engineer Loss and Damage Warranty: 08/28/2025 [facility] Service Plan: 06/11/2025 Battery Size: 312 Block Trimmer/Slim Tube: 1P Earmold/Dome/CShell/SlimTip: c-shell with canal lock SN: [id number] Warranty 08/27/2022 Type of Wax Guard: CeruStop Summary of Fitting: Performed feedback writing manager and real ear measurements. Comfortable at real ear settings. Reviewed care and use including changing wax guard. As a long time hearing aid user, Chichi did well with changing battery, insertion/removal, etc. Main difference with new hearing aids is wax guard. Chichi noticed an immediate improvement in sound quality compared to her old hearing aids. She is hopeful her new hearing aids will help at [employer] and while watching television. Reexplained realistic expectations and importance of consistent use. Rocker switch buttons disabled (volume control and program change) at Chichi's request. Did not pair to cell phone at this time. Recommendations: A hearing instrument follow-up was scheduled. Diagnosis Code(s): Primary Diagnosis: H90.3 Bilateral Sensorineural Hearing Loss Signature: Provider: Bean Gardner, [facility]
== END 2022-06-11 10:11 | disposition home or self-care (01) ==
LOC: HO.HAP 10:10
PROVIDERS: Visit Provider Internal Medicine
DX: Z46.1 Encounter for fitting and adjustment of hearing aid (principal); H90.3 Sensorineural hearing loss, bilateral
CPT/HCPCS: V5261; V5264; V5299

== ENCOUNTER 2022-06-25 10:13 | Outpatient (REF) | payer SELFPAY ==
--- NOTE | 2022-06-25 11:49 | MHC.AU.HA3 ---
Hearing Instrument Follow-Up- Binaural Date of Visit: 06/25/22 Right Ear: Abdi, Model, Color, Serial Number: Junior Castillo P70-312 SN: [id number] Color: Beige Grocery Stocker Repair Warranty: 08/28/2025 Grocery Stocker Loss and Damage Warranty: 08/28/2025 [facility] Service Plan: 06/11/2025 Battery Size: 312 Enrobing Machine Feeder/Slim Tube: 1P Earmold/Dome/CShell/SlimTip:c-shell with canal lock SN: [id number] Warranty 08/27/2022 Type of Wax Guard: CeruStop Dispensed By: [facility] Date of Fittin06/11/2022 Left Ear: Abdi, Model, Color, Serial Number: Junior Castillo P70-312 SN: [id number] Color: Beige Grocery Stocker Repair Warranty: 08/28/2025 Grocery Stocker Loss and Damage Warranty: 08/28/2025 [facility] Service Plan: 06/11/2025 Battery Size: 312 Enrobing Machine Feeder/Slim Tube: 1P Earmold/Dome/CShell/SlimTip: c-shell with canal lock SN: [id number] Warranty 08/27/2022 Type of Wax Guard: CeruStop Dispensed By: [facility] Date of Fittin06/11/2022 Follow-Up Summary: Chichi reported that overall the sound quality is a great improvement compared to her old hearing aids. The television volume is significant lower, she is hearing better at yazidism as well as in conversation with one or multiple speakers, and is able to hear birds chirping outside. Reviewed the different notification signals that she might hear in the hearing aids (e.g., low battery warning) at her request. Data logging showed about 9 hours of use per day. Her only concern at the moment is that the left ear mold works its way completely out of her ear. She is anxious to lose the hearing aid as it does not fit securely. Impression taken, , without incident. Sent to [employer] to remake c-shell for tighter fit. Otherwise, Chichi is quite satisfied with her new hearing aids. Recommendations: Patient will be contacted when materials have arrived. Recommendations (Other): Need to re-explain changing wax guards at next appointment. Diagnosis Code(s): Primary Diagnosis: H90.3 Bilateral Sensorineural Hearing Loss Signature: Provider: Bean Gardner, [facility]
== END 2022-06-25 10:14 | disposition home or self-care (01) ==
LOC: HO.HAP 10:13
PROVIDERS: Visit Provider Internal Medicine
DX: Z13.89 Encounter for screening for other disorder (principal)

== ENCOUNTER 2022-07-09 10:29 | Outpatient (REF) | payer SELFPAY ==
--- NOTE | 2022-07-09 12:52 | MHC.AU.HA3 ---
Hearing Instrument Follow-Up- Binaural Date of Visit: 07/09/22 Right Ear: Abdi, Model, Color, Serial Number: Junior Castillo [id number] SN: [id number] Color: Beige Dyeing Machine Feeder Repair Warranty: 08/28/2025 Dyeing Machine Feeder Loss and Damage Warranty: 08/28/2025 [facility] Service Plan: 06/11/2025 Battery Size: 312 Environmental Coordinator/Slim Tube: 1P Earmold/Dome/CShell/SlimTip:c-shell with canal lock SN: [id number] Warranty 08/27/2022 Type of Wax Guard: CeruStop Dispensed By: [facility] Date of Fittin06/11/2022 Left Ear: Abdi, Model, Color, Serial Number: Junior Castillo [id number] SN: [id number] Color: Beige Dyeing Machine Feeder Repair Warranty: 08/28/2025 Dyeing Machine Feeder Loss and Damage Warranty: 08/28/2025 [facility] Service Plan: 06/11/2025 Battery Size: 312 Environmental Coordinator/Slim Tube: 1P Earmold/Dome/CShell/SlimTip: c-shell with canal lock SN: [id number] Warranty 08/27/2022 Type of Wax Guard: CeruStop Dispensed By: [facility] Date of Fittin06/11/2022 Follow-Up Summary: Chichi returned to warehouse order picker her left c-shell remake. She reported that the mold was comfortable with no feedback in office. However, she will need some time to determine if it fits securely in her ear. She has her old c-shell to keep as backup. Chichi also reported that the right hearing aid stopped working. Wax guard plugged. Reinstructed how to change wax guard and gave Chichi printed instructions (directions in manual are for CeruShield not CeruStop). Overall, Chichi is still quite satisfied with her hearing aids and sound quality. Recommendations: An additional follow-up was scheduled to monitor progress and check-in regarding new ear mold fit. Diagnosis Code(s): Primary Diagnosis: H90.3 Bilateral Sensorineural Hearing Loss Signature: Provider: Bean Gardner, [facility]
== END 2022-07-09 10:30 | disposition home or self-care (01) ==
LOC: HO.HAP 10:29
PROVIDERS: Visit Provider Internal Medicine
DX: Z13.89 Encounter for screening for other disorder (principal)

== ENCOUNTER 2022-08-16 07:43 | Outpatient (REF) | payer MEDICARE, OTHER, SELFPAY ==
[2022-08-16 11:30] LABS: Alanine Aminotransferase 24 U/L (0-31); Albumin Level 3.6 g/dL (3.5-5.0); Alkaline Phosphatase 66 U/L (39-117); Anion Gap 12 (12-20); Aspartate Amino Transferase 21 U/L (5-31); Bilirubin Total 0.5 mg/dL (0.0-1.0); Blood Urea Nitrogen 21 mg/dL (9-16); Calcium 9.4 mg/dL (8.4-10.2); Carbon Dioxide 27 mmol/L (22-29); Chloride 108 mmol/L (96-108); Cholesterol 157 mg/dL; Estimated Glomerular Filt Rate > 60; Glucose Fasting 91 mg/dL (60-99); HDL Cholesterol 65 mg/dL; LDL Cholesterol Calculated 76 mg/dl; Potassium 4.1 mmol/L (3.3-5.1); Sodium 143 mmol/L (135-145); Total Protein 5.6 g/dL (6.5-8.0); Triglycerides 81 mg/dL
[2022-08-16 11:36] LABS: Vitamin D 25-OH Total 42.4 ng/mL (>30)
== END 2022-08-16 07:44 | disposition home or self-care (01) ==
LOC: HO.10HDL 07:43
PROVIDERS: Visit Provider Internal Medicine
DX: I10 Essential (primary) hypertension (principal); E78.5 Hyperlipidemia, unspecified; E55.9 Vitamin D deficiency, unspecified
CPT/HCPCS: 36415; 80053; 80061; 82306

== ENCOUNTER 2022-08-27 14:32 | Outpatient (REF) | payer SELFPAY ==
--- NOTE | 2022-08-27 16:13 | MHC.AU.HFU ---
Hearing Instrument Follow-Up- Binaural Date of Visit: 08/27/22 Right Ear: Junior Berryeo P70-312 SN: [id number] Color: Beige Repair Warranty: 08/28/2025 Loss and Damage Warranty: 08/28/2025 Service Plan: 06/11/2025 Battery Size: 312 Playground Supervisor: 1P Tubing: Slim Tube #1 Type of Mold: c-shell with canal lock SN: [id number] Warranty 08/27/2022 Type of Wax Guard: CeruStop Dispensed By: [facility] Date of Fittin06/11/2022 Left Ear: Junior Berryeo P70-312 SN: [id number] Color: Beige Repair Warranty: 08/28/2025 Loss and Damage Warranty: 08/28/2025, used 08/27/2022 Service Plan: 06/11/2025 Battery Size: 312 Playground Supervisor: 1P Tubing: Slim Tube #1 Type of Mold: c-shell with canal lock SN: [id number] Warranty 10/23/2022 Type of Wax Guard: CeruStop Dispensed By: [facility] Date of Fittin06/11/2022 Follow-Up Summary: Chichi is here today for a loss and damage replacement fitting of her left aid and cshell mold. I programmed right and left aids together in [employer]. We practiced with insertion. Chichi admits she has some trouble getting the left aid in. I recommended placing the left aid on top of her ear then the cshell mold in her ear. She did better with insertion this way on the left side. She has no trouble with inserting the right aid. Good fit noted bilaterally. $535 paid for replacement fee and new cshell/canal lock mold. She will reach out for follow-up as needed or when concerns arise. Diagnosis Code(s): Primary Diagnosis: H90.3 Bilateral Sensorineural Hearing Loss Signature: Provider: Selma Lezama, [facility]
== END 2022-08-27 14:33 | disposition home or self-care (01) ==
LOC: HO.HAP 14:32
PROVIDERS: Visit Provider Internal Medicine
DX: Z46.1 Encounter for fitting and adjustment of hearing aid (principal); H90.3 Sensorineural hearing loss, bilateral
CPT/HCPCS: 92700; V5264; V5299

== ENCOUNTER 2022-08-29 11:25 | Outpatient (REF) | payer MEDICARE, OTHER, SELFPAY ==
--- NOTE | ~2022-08-29 | US_ITS ---
EXAMINATION: US RETROPERITONEAL COMPLETE (RENAL) CLINICAL INFORMATION: Urinary tract infection, site not specified. COMPARISON: CT abdomen and pelvis without and with contrast 01/15/2019. TECHNIQUE: Real-time imaging of the kidneys and bladder. FINDINGS: RIGHT KIDNEY: 7.4 x 3.8 x 4.2 cm (SAG x AP x TRV). The kidney is small but normal in contour, and echogenicity. Renal cortical thickness is normal. There are multiple renal cysts. The largest measures 6.4 x 6.1 x 6.1 cm in the upper pole and has thin septations. No imaging follow-up recommended. No renal calculi or hydronephrosis. LEFT KIDNEY: 9.0 x 4.5 x 3.6 cm (SAG x AP x TRV). The kidney is slightly small but normal in contour, and echogenicity. Renal cortical thickness is normal. There are multiple renal cysts. The largest measures 3.1 x 2.6 x 2.4 cm exophytic to the midpole. No imaging follow-up recommended. No renal calculi or hydronephrosis. BLADDER: The bladder wall is normal in thickness. There is irregularity of the contour of the inferior bladder, question corresponding to a cystocele seen by CT. Bilateral ureteral jets are demonstrated. Prevoid bladder volume is 150 mL. Postvoid bladder volume was not obtained. US/US retroperitoneal comp IMPRESSION: Small kidneys. Bilateral renal cysts. Irregular contour or outpouching of the inferior bladder, question representing cystocele. Post void residual not obtained.
== END 2022-08-29 11:26 | disposition home or self-care (01) ==
LOC: HO.US 11:25
PROVIDERS: PCP Internal Medicine; Visit Provider Nurse Practitioner Family
DX: N39.0 Urinary tract infection, site not specified (principal); N39.41 Urge incontinence
CPT/HCPCS: 76770

== ENCOUNTER 2022-09-03 22:36 | Emergency (ER) | payer MEDICARE, OTHER, SELFPAY ==
--- NOTE | ~2022-09-03 | US_ITS ---
EXAMINATION: US VENOUS ULTRASOUND WITH DOPPLER LOWER EXTREMITY, RIGHT CLINICAL INFORMATION: Increased right leg swelling COMPARISON: None available. TECHNIQUE: Ultrasound of the deep veins is performed from the hip to the calf with compression sonography and color and pulse Doppler assessment. Spectral analysis with color-flow imaging is performed. FINDINGS: There is normal venous compression and respiratory variation and augmented flow. The visualized common femoral vein, superficial femoral vein, profunda femoral vein, popliteal vein, and the trifurcation region shows no evidence of deep venous thrombosis. There is no significant popliteal fossa cyst. If the patient's symptoms persist, followup ultrasound in 5 days 7 days might be of value to exclude proximal propagation from a non-visualized calf vein. US/US venous duplex LE RT IMPRESSION: No DVT demonstrated in the right lower extremity.
[2022-09-03 22:38] VITALS: BP 160/80; PULSE 66; O2SAT 100
[2022-09-03 22:46] VITALS: BP 188/55; PULSE 64; RESP 18; TEMP 36.6; O2SAT 100; BMI 24.0
--- NOTE | 2022-09-03 23:29 | ED_ITS ---
HPI - Extremity Problem General Chief complaint: Extremity Problem Stated complaint: leg swelling, hip pain Time Seen by Provider: 09/03/22 23:14 Source: patient Mode of arrival: ambulatory Limitations: no limitations History of Present Illness HPI Narrative: 87-year-old female who presents emergency department for evaluation of right lower extremity swelling. Patient states that she fell asleep on the couch and woke up at 2200 hours in noted that she had swelling in her left lower extremity. She points to her left lateral calf on axial slice the swelling. She was concerned that she might have a blood clot or difficulty with her circulation so she came to emergency department for evaluation. She states that she always has asymmetric swelling of her legs with the left leg being more swollen than the right. She denies any pain in her lower extremities. She denied chest pain, shortness of breath, fever, chills or weakness. Related Data Home Medications Medication Instructions Recorded Confirmed glucosamine sulfate 1,000 mg 1,000 mg PO DAILY 02/08/20 08/20/22 capsule multivitamin 1 tab PO DAILY 02/08/20 08/20/22 aspirin 81 mg tablet,delayed 81 mg PO DAILY 02/24/20 08/20/22 release (Adult Aspirin Regimen) denosumab 60 mg/mL subcutaneous 60 mg subcut [id number] 05/16/20 08/20/22 syringe (Prolia) magnesium 250 mg tablet 250 mg PO DAILY 05/24/21 08/20/22 carvedilol 12.5 mg tablet 12.5 mg PO BID 01/03/22 08/20/22 Previous Rx's Medication Instructions Recorded tiotropium bromide 18 mcg capsule 1 cap inhalation DAILY 90 days #90 01/03/21 with inhalation device inhalations atorvastatin 40 mg tablet 40 mg PO BEDTIME 30 days #30 tabs 10/19/21 nitrofurantoin macrocrystal 100 mg 100 mg PO BEDTIME 90 days #90 caps 10/31/21 capsule ezetimibe 10 mg tablet 10 mg PO DAILY 90 days #90 tabs 12/04/21 tolterodine 4 mg capsule,extended 4 mg PO DAILY 90 days #90 caps 01/02/22 release 24 hr chlorthalidone 25 mg tablet 25 mg PO DAILY 90 days #90 tabs 05/06/22 losartan 100 mg tablet 100 mg PO DAILY 90 days #90 tabs 05/28/22 lansoprazole 30 mg capsule,delayed 30 mg PO DAILY@0630 #90 caps 06/11/22 release amlodipine 5 mg tablet 5 mg PO DAILY 90 days #90 tabs 06/20/22 acetaminophen 650 mg 1,300 mg PO Q6H Pain (Scale Score 08/20/22 tablet,extended release (Tylenol 1-3) 30 days #240 tabs Arthritis Pain) Allergies Allergy/AdvReac Type Severity Reaction Status Date / Time cephalexin [Keflex] Allergy Intermediate Unknown Verified 08/20/22 11:18 tetracycline [Tetracycline] Allergy Intermediate TONGUE Verified 08/20/22 11:18 SWOLLEN Review of Systems Review of Systems: Yes all other systems are reviewed and are negative [facility] Past Medical History [facility] Narrative: Social history: She lives alone, she denies tobacco, alcohol and drug use. Medical History COPD (chronic obstructive pulmonary disease) Dyslipidemia Frequent UTI GERD (gastroesophageal reflux disease) Hearing loss History of ductal carcinoma in situ (DCIS) of breast Hospital discharge follow-up Hypercalcemia Hypercalcemia Hypertension Hypertensive urgency Left hip pain Left sided sciatica Left-sided weakness Multiple lacunar infarcts Osteoarthritis of right hip Osteoporosis Screening for breast cancer Urge urinary incontinence Vitamin D deficiency Surgical History H/O right inguinal hernia repair History of colonoscopy History of lumpectomy of right breast History of pubovaginal sling Family History Family History Father Heart failure CVD (cardiovascular disease) Mother Breast cancer Social History Social History Household Members: None Housing: House Do you presently have visiting nurse or other home services: No Alcohol intake: current Alcohol intake frequency: holidays/special occasions only Alcohol type: wine Patient Tobacco Use Status: Former Tobacco user Quit Date: 02/04/91 Tobacco use type: Cigarette e-Cigarette/Vaping Use: Never Used Second Hand Smoke Exposure: No Advance Directives: Yes Advance Directives on File: Yes Advance Directives Date on File: 10/19/21 service: No Current occupational status: retired Cognitive needs: No Hearing needs: Yes (hearing aide) Vision needs: No (glaases) Physical Exam Vital Signs: Vital Signs: Last Vital Signs Temp 98 F 09/03/22 22:46 Pulse 64 09/03/22 22:46 Resp 18 09/03/22 22:46 BP 188/55 H 09/03/22 22:46 Pulse Ox 100 09/03/22 22:46 O2 Del Method Room Air 09/03/22 22:46 BMI result Body Mass Index 24.0 Const: General: cooperative and no acute distress Orie ntation/consciousness: oriented to person and oriented to place Limitations: no limitations HEENT: Head: Yes normal to inspection, Yes normocephalic and Yes atraumatic Ears: external ears normal General nose exam: Normal external nose present Face and sinus: Yes normal facial exam Mouth: Normal oral and palatal mucosa present Throat: Yes posterior oropharynx normal Eyes: General: appearance normal, both eyes and all related structures Pupils: Equal, round and reactive pupils present Neck: Neck: Yes normal visual inspection, Yes no lymphadenopathy, Yes trachea midline and Yes supple Chest: Chest palpation & inspection: normal inspection of the chest and normal palpation of entire chest wall Resp: Effort & Inspection: normal respiratory effort and able to speak in complete sentences Auscultation: clear to auscultation bilaterally Cardio: Rate: regular rate Rhythm: regular rhythm Heart sounds: S1 normal heart sound present, S2 normal heart sound present and no murmurs GI: Inspection: Yes normal to inspection Palpation (GI): Soft to palpation, nontender and no guarding Auscultation: normal bowel sounds : General: Yes no CVA tenderness Back/Spine/Pelvis: Back: no CVA tenderness Skin: General skin exam: no rashes or lesions noted Neuro: General: oriented to person and oriented to place Cranial nerves: Yes CN's II-XII intact bilaterally and Yes Equal, round and reactive pupils present Cognition (Neuro): normal cognition Motor exam (neuro): 5/5 motor strength present throughout Extrem: Other: The patient does have 1+ pitting edema to her left lower extremity and trace to 1 +pitting edema to the right lower extremity. There is no erythema or increased warmth noted. The patient's foot and toe exam is normal with no skin break. Psych: Appearance: grossly normal Speech and movement: Normal speech and movement present Affect: normal affect Attitude: cooperative Medical Decision Making Medical Decision Making [facility] Narrative: 87-year-old female who presents emergency department for evaluation of swelling of her right lower extremity that she noted at 22:00 hours, prior to coming to the emergency department. Patient does have peripheral edema which is been asymmetric in the past with a left lower extremity being more swollen than the right. Patient had no other concerning systemic symptoms. Blood pressure was elevated 188/55 otherwise vital signs were normal. Patient's left lower extremity revealed 1+ pitting edema in her right lower extremity revealed trace to 1+ pitting edema. There is no evidence for cellulitis or arterial compromise. I ordered a duplex ultrasound of the right lower extremity. This test was negative for DVT and I did discuss this with the patient. Patient's swelling is most likely secondary to peripheral edema. Advised to keep her legs elevated and to restrict the amount of fluid that she drinks. Also advised her to wear compression stockings. She was discharged home. Differential Diagnosis Differential diagnosis includes but is not limited to DVT, cellulitis, arterial compromise, hematoma Radiology Impression Discussion of test interpretation with radiology: I have reviewed the radiologist's reading. Radiologist Impression: US venous duplex LE RT IMPRESSION: No DVT demonstrated in the right lower extremity. Dictated By:Pablo Lopez MD Discharge Plan Discharge Clinical Impression: Edema, peripheral Patient Disposition: Home, Self-Care Instructions: Edema (ED) Additional Instructions: The Doppler ultrasound of your right lower extremity was normal, there was no blood clot seen on ultrasound. Your swelling is due to too much fluid in your legs(peripheral edema). Keep your legs elevated to help reduce the swelling. Restrict the amount of fluid that you drink daily Consider wearing compression stockings if the swelling becomes more severe. Follow-up with your doctor in 2 days. Please return to the emergency department if your symptoms get worse or if you develop any symptoms that are concerning to you. Prescriptions: No Action tiotropium bromide 18 mcg capsule, w/inhalation device 1 cap inhalation DAILY 90 Days Qty: 90 3RF nitrofurantoin macrocrystal 100 mg capsule 100 mg PO BEDTIME 90 Days Qty: 90 3RF Rx Instructions: must administer with a meal/food ezetimibe 10 mg tablet 10 mg PO DAILY 90 Days Qty: 90 3RF tolterodine 4 mg capsule,extended release 24hr 4 mg PO DAILY 90 Days Qty: 90 3RF chlorthalidone 25 mg tablet 25 mg PO DAILY 90 Days Qty: 90 1RF losartan 100 mg tablet 100 mg PO DAILY 90 Days Qty: 90 3RF lansoprazole 30 mg capsule,delayed release(DR/EC) 30 mg PO DAILY@0630 Qty: 90 0RF amlodipine 5 mg tablet 5 mg PO DAILY 90 Days Qty: 90 1RF atorvastatin 40 mg Tablet 40 mg PO BEDTIME 30 Days Qty: 30 0RF Prolia 60 mg/mL syringe 60 mg subcut [id number] Rx Instructions: last dose may 2021 carvedilol 12.5 mg tablet 12.5 mg PO BID acetaminophen [Tylenol Arthritis Pain] 650 mg tablet extended release 1,300 mg PO Q6H 30 Days Qty: 240 1RF glucosamine sulfate 1,000 mg capsule 1,000 mg PO DAILY Rx Instructions: administer with meals multivitamin Tablet 1 tab PO DAILY aspirin [Adult Aspirin Regimen] 81 mg tablet,delayed release (DR/EC) 81 mg PO DAILY magnesium 250 mg tablet 250 mg PO DAILY
[2022-09-04 00:40] VITALS: BP 147/55; PULSE 68; RESP 18; O2SAT 99
== END 2022-09-04 00:44 | disposition home or self-care (01) ==
PROVIDERS: Emergency Provider Emergency Medicine Emergency Medical Services; PCP Internal Medicine
DX: R60.0 Localized edema (principal)
CPT/HCPCS: 93971; 99284

== ENCOUNTER → 2022-09-12 10:30 | Outpatient (BNVA) | payer MEDICARE, OTHER, SELFPAY | PROVIDERS: PCP Internal Medicine; Visit Provider Nurse Practitioner Family | DX: N39.0 Urinary tract infection, site not specified (principal); N28.1 Cyst of kidney, acquired; N32.81 Overactive bladder; N39.41 Urge incontinence; N81.10 Cystocele, unspecified; Z79.899 Other long term (current) drug therapy | CPT/HCPCS: 51798; 99212 ==

== ENCOUNTER → 2022-10-16 13:29 | Outpatient (BNVA) | payer MEDICARE, OTHER, SELFPAY | PROVIDERS: PCP Internal Medicine; Visit Provider Urology | DX: N81.10 Cystocele, unspecified (principal); N32.81 Overactive bladder; N39.41 Urge incontinence; N28.1 Cyst of kidney, acquired; Z79.82 Long term (current) use of aspirin; Z79.899 Other long term (current) drug therapy | CPT/HCPCS: 51798; 99212 ==

== ENCOUNTER 2022-11-06 08:32 | Outpatient (REF) | payer MEDICARE, OTHER, SELFPAY ==
[2022-11-06 10:06] LABS: Alanine Aminotransferase 18 U/L (0-31); Albumin Level 3.7 g/dL (3.5-5.0); Alkaline Phosphatase 58 U/L (39-117); Anion Gap 11 (12-20); Aspartate Amino Transferase 16 U/L (5-31); Bilirubin Total 0.6 mg/dL (0.0-1.0); Blood Urea Nitrogen 20 mg/dL (9-16); Calcium 9.9 mg/dL (8.4-10.2); Carbon Dioxide 29 mmol/L (22-29); Chloride 107 mmol/L (96-108); Estimated Glomerular Filt Rate > 60; Glucose Random 97 mg/dL (60-115); Phosphorus 3.2 mg/dL (2.7-4.5); Potassium 3.5 mmol/L (3.3-5.1); Sodium 143 mmol/L (135-145); Total Protein 6.4 g/dL (6.5-8.0)
[2022-11-06 10:21] LABS: Vitamin D 25-OH Total 41.2 ng/mL (>30)
[2022-11-08 21:27] LABS: Calcium (PTHI) 9.4 mg/dL (8.6-10.4); PTHI 55 pg/mL (16-77)
[2022-11-09 22:28] LABS: Alkaline Phosphatase Bone 9.6 mcg/L (see note)
[2022-11-15 01:38] LABS: N-Telopeptide 20 (see note); NTXCreaRU 47 mg/dL (20-275)
== END 2022-11-06 08:33 | disposition home or self-care (01) ==
LOC: HO.10HDL 08:32
PROVIDERS: Visit Provider Internal Medicine
DX: M81.0 Age-related osteoporosis without current pathological fracture (principal); E55.9 Vitamin D deficiency, unspecified
CPT/HCPCS: 36415; 80053; 82306; 82523; 83970; 84075; 84100

== ENCOUNTER 2022-11-07 09:52 | Outpatient (REF) | payer SELFPAY | END 2022-11-07 09:53 | disposition home or self-care (01) | LOC: HO.HAP 09:52 | PROVIDERS: Visit Provider Internal Medicine | DX: Z46.1 Encounter for fitting and adjustment of hearing aid (principal); H90.3 Sensorineural hearing loss, bilateral | CPT/HCPCS: V5264 ==

== ENCOUNTER 2022-11-14 08:34 | Outpatient (AMB) | payer MEDICARE, OTHER, SELFPAY ==
--- NOTE | 2022-11-14 08:32 | MHC.OFFVIS ---
Intake Intake Visit Reasons: F/U Osteoporosis with Prolia Allergies cephalexin [Keflex] Allergy (Intermediate, Verified 11/14/22 09:58) Unknown tetracycline [Tetracycline] Allergy (Intermediate, Verified 11/14/22 09:58) TONGUE SWOLLEN Medication List - Last Reconciled 11/14/22 by Kelsie Sanz DO acetaminophen ER (Tylenol Arthritis Pain) 1,300 mg (2 x 650 mg) PO Q6H 30 days amlodipine 5 mg PO DAILY 90 days aspirin (Adult Aspirin Regimen) 81 mg PO DAILY atorvastatin 40 mg PO BEDTIME 30 days carvedilol 12.5 mg PO BID chlorthalidone 25 mg PO DAILY 90 days denosumab (Prolia) 60 mg subcut [id number] estradiol 0.01%(0.1mg/gram) (Estrace) apply a pea sized amount to fingertip and apply qhs vaginally daily; ezetimibe 10 mg PO DAILY 90 days glucosamine sulfate 1,000 mg PO DAILY lansoprazole 30 mg PO DAILY@0630 losartan 100 mg PO DAILY 90 days magnesium 250 mg PO DAILY multivitamin 1 tab PO DAILY nitrofurantoin macrocrystal 100 mg PO BEDTIME 90 days tiotropium bromide 1 cap inhalation DAILY 90 days vibegron (Gemtesa) 75 mg PO DAILY HPI HPI Comments History of Present Illness Details 87 YO Female with PMHx Osteoporosis is seen in F/U for the same. She was previously followed by Dr. Che and then Dr. Khan. She has a longstanding history of hypercalcemia. It is unclear if a diagnosis of hyperparathyroidism was ever established. She does remain on HCTZ low dose currently. She has been receiving Prolia injections intermittently since 2015. Her most recent Prolia was 05/23/2022. She tolerated this well. First diagnosed with Osteoporosis in 2007. Received treatment in the past with Fosamax for approximately 5 years. She tolerated this well, but it was stopped and she was given a drug holiday. She then began Prolia with Dr. Che, and had her first injection 11/22/2015. Dosing appears to have been intermittent since then, and it is unclear how many doses she has received. Her last dose was 04/25/2021. Most recent DXA reveals improvements of 4% in the spine, 12% in the hip. No history of pathologic fracture or ONJ. Has 1 servings of dietary calcium per day in the form of yogurt. She does not take a Calcium or Vitamin D supplement. Denies ever using PPI, anticoagulant, antiepileptic or glucocorticoid medication. Does no scheduled exercise. Fracture history: Denies Height loss: 4 inch height loss [employer] history: Menarche was age 9. Menses were regular. . Menopause was age 50. She did not use HRT. Denies history of Kidney stones: Family history of Osteoporosis in her Mother. UTD on dental cleanings and sees dentist every 6 months. She had a root canal approximately 3 months ago. DXA: 07/10/21 FINDINGS: AP SPINE L1-L4: Current: BMD 0.822 g/cm2, Z-score -0.6, T-score -3.0, osteoporosis, 3.8% increase from previous, 7.2% increase from baseline (<5% change is not significant). Prior: BMD 0.792 g/cm2. Baseline: BMD 0.767 g/cm2. LEFT FEMUR, NECK: Current: BMD 0.780 g/cm2, Z-score 0.9, T-score -1.9, osteopenia. Prior: BMD 0.713 g/cm2. Baseline: BMD 0.756 g/cm2. LEFT FEMUR, TOTAL: Current: BMD 0.813 g/cm2, Z-score 1.1, T-score -1.5, osteopenia, 12.0% increase from previous, 3.7% increase from baseline (<5% change is not significant). Prior: BMD 0.726 g/cm2. Baseline: BMD 0.784 g/cm2. LEFT FOREARM RADIUS 33%: Current: BMD 0.691 g/cm2, Z-score 1.2, T-score -2.1, osteopenia, 1.6% increase from baseline (<5% change is not significant). Baseline: BMD 0.680 g/cm2. Labs: Laboratory Tests 11/06/22 11/06/22 08:38 08:38 Creatinine 0.77 Estimated GFR > 60 25-OH Vitamin D To david 41.2 PTH Intact 55 Calcium (PTH Intac t) 9.4 PFSH Medical History COPD (chronic obstructive pulmonary disease) Dyslipidemia Frequent UTI GERD (gastroesophageal reflux disease) Hearing loss History of ductal carcinoma in situ (DCIS) of breast Hospital discharge follow-up Hypercalcemia Hypercalcemia Hypertension Hypertensive urgency Left hip pain Left sided sciatica Left-sided weakness Multiple lacunar infarcts Osteoarthritis of right hip Osteoporosis Screening for breast cancer Urge urinary incontinence Vitamin D deficiency Surgical History H/O right inguinal hernia repair History of colonoscopy History of lumpectomy of right breast History of pubovaginal sling Family History Father Heart failure CVD (cardiovascular disease) Mother Breast cancer Social History Household Members: None Housing: House Do you presently have visiting nurse or other home services: No Alcohol intake: current Alcohol intake frequency: holidays/special occasions only Alcohol type: wine Patient Tobacco Use Status: Former Tobacco user Quit Date: 02/04/91 Tobacco use type: Cigarette e-Cigarette/Vaping Use: Never Used Second Hand Smoke Exposure: No Advance Directives Date on File: 10/19/21 service: No Current occupational status: retired Cognitive needs: Yes (CANE) Hearing needs: Yes (hearing aide) Vision needs: No (glaases) Assessment & Plan Assessment & Plan (1) Osteoporosis: Code(s): M81.0 - Age-related osteoporosis without current pathological fracture Qualifiers: Osteoporosis type: age-related Presence of current pathological fracture: without current pathological fracture Qualified Code(s): M81.0 - Age-related osteoporosis without current pathological fracture Plan: Patient with a history of Osteoporosis. I highly suspect primary hyperparathyroidism in her case. It does not appear she was ever fully evaluated for this. She did have a recent CVA and was hospitalized for this. Her BP was extremely elevated, so I am hesitant to stop her HCTZ at this time. We did discuss hyperparathyroidism and that the typical management is a surgical parathyroidectomy. She is refusing any surgery at this time, which I feel is reasonable given her age and her comorbidities. Management would then be antiresorptives to help prevent any further bone loss. Anabolics are contraindicated both in the setting of hypercalcemia and also with a history of radiation therapy due to her breast cancer. She will continue on Prolia. Last dose was 11/21/2022. She is due now. She will F/U for a nurse visit for dosing. She will then F/U in 6 months time with labs prior for her next Prolia dose. She has had significant improvements in her spine and hip since starting the Prolia. All of her questions were answered. She is in agreement with this plan of care. I spent 20 minutes in reviewing the record, seeing the patient and documenting in the medical record, including 5 minutes on the phone with the Patient. (2) Hypercalcemia: Code(s): E83.52 - Hypercalcemia Plan: Patient likely has underlying hyperparathyroidism. She does remain on HCTZ and is unable to stop this due to her hypertension. (3) Vitamin D deficiency: Code(s): E55.9 - Vitamin D deficiency, unspecified Plan: Vitamin D at goal. No changes. Telehealth Telehealth Location of provider rendering services: practice address Location of patient: address on file Patient Identification confirmed using: Name, : Yes Telehealth method: voice only Patient verbally consented to treatment: Yes Patient verbally consented to billing insurance company: Yes Patient informed of any privacy concerns related to visit: Yes Coding Level of Care Code Tele Est Pt Level 3 (82041) Diagnoses Osteoporosis M81.0 Osteoporosis type: age-related Presence of current pathological fracture: without current pathological fracture Hypercalcemia E83.52 Vitamin D deficiency E55.9
== END 2022-11-14 10:43 | disposition home or self-care (01) ==
LOC: HO.ENCR 08:34
PROVIDERS: PCP Internal Medicine; Visit Provider Internal Medicine
DX: M81.0 Age-related osteoporosis without current pathological fracture (principal); E55.9 Vitamin D deficiency, unspecified
CPT/HCPCS: 99441

== ENCOUNTER → 2022-11-14 08:34 | Outpatient (BNVA) | payer MEDICARE, OTHER, SELFPAY | PROVIDERS: PCP Internal Medicine; Visit Provider Internal Medicine ==

== ENCOUNTER 2022-11-21 11:13 | Outpatient (AMB) | payer SELFPAY ==
--- NOTE | 2022-11-21 11:30 | AM.OFFVISNUR ---
Intake Intake Visit Reasons: Prolia Allergies cephalexin [Keflex] Allergy (Intermediate, Verified 11/14/22 09:58) Unknown tetracycline [Tetracycline] Allergy (Intermediate, Verified 11/14/22 09:58) TONGUE SWOLLEN Office Meds Prolia Performing Provider: Kelsie Sanz DO Administered by: Krzysztof Lewis RN on 11/21/22 11:25 Dose Route Admin Location Lot Number Expiration Date NDC [employer] 60 mg subcut right posterior upper arm [id number] 12/19/24 85086-130-28 [facility] Coding Diagnoses Assessment & Plan Assessment & Plan Orders: Orders AMB Denosumab Injection Practice Supplied Today M81.0 - Age-related osteoporosis without current pathological fracture
== END 2022-11-21 12:02 | disposition home or self-care (01) ==
PROVIDERS: PCP Internal Medicine; Visit Provider Internal Medicine
DX: M81.0 Age-related osteoporosis without current pathological fracture (principal)

== ENCOUNTER → 2022-11-21 11:13 | Outpatient (BNVA) | payer MEDICARE, OTHER, SELFPAY | PROVIDERS: PCP Internal Medicine; Visit Provider Internal Medicine | DX: M81.0 Age-related osteoporosis without current pathological fracture (principal); Z79.620 Long term (current) use of immunosuppressive biologic | CPT/HCPCS: 96372; J0897 ==

== ENCOUNTER 2022-12-03 10:58 | Outpatient (AMB) | payer MEDICARE, OTHER, SELFPAY ==
[2022-12-03 10:59] VITALS: BP 130/68; PULSE 67; O2SAT 99; BMI 23.8
--- NOTE | 2022-12-03 10:59 | A.OFFVIS_ITS ---
Intake Vital Signs 12/03/22 10:59 Height 4 ft 9 in Weight 110 lb BMI 23.8 BP 130/68 Blood Pressure Location Lt brachial Position Sitting Pulse 67 Pulse Source Pulse Oximeter Temp Source Skin Pulse Oximetry (%) 99 Oxygen Delivery Method Room Air Intake Visit Reasons: SAWV Intake Note: Patient is here for an Annual Wellness Visit. 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 Allergies cephalexin [Keflex] Allergy (Intermediate, Verified 12/03/22 11:15) Unknown tetracycline [Tetracycline] Allergy (Intermediate, Verified 12/03/22 11:15) TONGUE SWOLLEN Medication List - Last Reconciled 12/03/22 by FARHAN Andrews acetaminophen ER (Tylenol Arthritis Pain) 1,300 mg (2 x 650 mg) PO Q6H 30 days amlodipine 5 mg PO DAILY 90 days aspirin (Adult Aspirin Regimen) 81 mg PO DAILY atorvastatin 40 mg PO BEDTIME 30 days carvedilol 12.5 mg PO BID chlorthalidone 25 mg PO DAILY 90 days denosumab (Prolia) 60 mg subcut [id number] estradiol 0.01%(0.1mg/gram) (Estrace) apply a pea sized amount to fingertip and apply qhs vaginally daily; ezetimibe 10 mg PO DAILY 90 days glucosamine sulfate 1,000 mg PO DAILY lansoprazole 30 mg PO DAILY@0630 losartan 100 mg PO DAILY 90 days magnesium 250 mg PO DAILY multivitamin 1 tab PO DAILY nitrofurantoin macrocrystal 100 mg PO BEDTIME 90 days tiotropium bromide 1 cap inhalation DAILY 90 days vibegron (Gemtesa) 75 mg PO DAILY Fall Risk Assessment Fall risk assessment: No Falls in past year Date Fall Risk Assessed: 12/03/22 HPI SAWV HPI Details Patient is an 87-year-old female who presents today for subsequent wellness visit. Patient of Dr. Ricci. Patient is up-to-date with her health preventative screenings and immunizations. Mammogram normal 01/2022, bone density screen 06/2021 which showed osteoporosis-patient is on Prolia and followed by endocrinology. [place] of care was reviewed with the patient and she was provided with a screening schedule. Healthcare proxy is on file although unable to read - patient will bring healthcare proxy form for another copy. Patient was provided with a MOLST form. [facility] Medical History COPD (chronic obstructive pulmonary disease) Dyslipidemia Frequent UTI GERD (gastroesophageal reflux disease) Hearing loss History of ductal carcinoma in situ (DCIS) of breast Hospital discharge follow-up Hypercalcemia Hypercalcemia Hypertension Hypertensive urgency Left hip pain Left sided sciatica Left-sided weakness Multiple lacunar infarcts Osteoarthritis of right hip Osteoporosis Screening for breast cancer Urge urinary incontinence Vitamin D deficiency Surgical History H/O right inguinal hernia repair History of colonoscopy History of lumpectomy of right breast History of pubovaginal sling Family History Father Heart failure CVD (cardiovascular disease) Mother Breast cancer Social History Household Members: None Housing: House Do you presently have visiting nurse or other home services: No Alcohol intake: current Alcohol intake frequency: does not drink Alcohol type: wine Patient Tobacco Use Status: Former Tobacco user Quit Date: 02/04/91 Tobacco use type: Cigarette e-Cigarette/Vaping Use: Never Used Second Hand Smoke Exposure: No Advance Directives Date on File: 10/19/21 service: No Current occupational status: retired Cognitive needs: Yes (CANE) Hearing needs: Yes (hearing aide) Vision needs: No (glaases) Questionnaire Medicare Wellness Checkup What is your age?: 80 or older What gender do you identify with?: female During the past 4 weeks, how much have you been bothered by emotional problems such as feeling anxious, depressed, irritable, sad or downhearted, and blue?: not at all During the past 4 weeks, has your physical & emotional health limited your social activities with family, friends, neighbors, or groups?: not at all During the past 4 weeks, how much bodily pain have you generally had?: moderate pain During the past 4 weeks, was someone available to help you if you needed & wanted help?: yes, as much as I wanted During the past 4 weeks, what was the hardest physical activity you could do for at least 2 minutes?: moderate Can you get to places out of walking distance without help? (For eg., can you travel alone on buses, taxis or drive your car?): Yes Can you go shopping for groceries or clothes without someone's help?: Yes Can you prepare your own meals?: Yes Can you do your housework without help?: Yes Because of any health problems, do you need the help of another person with your personal care needs such as eating, bathing, dressing or getting around the house?: No Can you handle your own money without help?: Yes During the past 4 weeks, how would you rate your health in general?: good During the past 4 weeks how have things been going for you?: pretty well Are you having difficulties driving your car?: no Do you always fasten your seat belt when you are in a car?: yes, usually During past 4 weeks, have you been bothered by the following: never: Falling or dizzy when standing up, Trouble eating well?, Teeth or denture problems?, Problems using the telephone? and Tiredness or fatigue? Have you fallen 2 or more times in the past year?: No Are you afraid of falling?: No Are you a smoker?: no During the past 4 weeks, how many drinks of wine, beer, or other alcoholic beverages did you have?: no alcohol at all Do you exercise for about 20 minutes 3 or more times a week?: yes, some of the time Have you been given information to help with the following?: no: Hazards in your house that might hurt you? and no: Keeping track of your medications? How often do you have trouble taking medicines the way you have been told to take them?: I always take medicine as prescribed How confident are you that you can control & manage most of your health problems?: very confident What is your race?: White Mini Mental State Exam (MMSE) Orientation What is the (year) (season) (date) (day) (month)?: year, season, date, day and month Score Score: 5 Activity of Daily Living Bathing - sponge bath, tub bath or shower: receives no assistance (gets in/out by self, if usual bathing means Dressing - getting clothes from closets & drawers, including inner/outer garments & fasteners.: gets clothes & gets completely dressed without help Toileting - going to the 'toilet room' for urine/bowel elimination & cleaning self/arranging clothes: goes to toilet room, cleans self, arranges clothes without help Transfer: moves in & out of bed and chair without help (may use support object) Continence: controls urination/bowel movements completely by self Feeding: feeds self without help Total Score: 0 Information obtained from: patient Using telephone: independent Traveling: independent Shopping: independent Preparing meals: independent Housework: independent Taking medicine: independent Managing money: independent PHQ-9 Over the last 2 weeks, how often have you been bothered by any of the following problems? 1. Little interest or pleasure in doing things: not at all 2. Feeling down, depressed, or hopeless: not at all 3. Trouble falling or staying asleep, or sleeping too much: not at all 4. Feeling tired or having little energy: not at all 5. Poor appetite or overeating: not at all 6. Feeling bad about yourself - or that you are a failure or have let yourself or your family down: not at all 7. Trouble concentrating on things, such as reading the newspaper or watching television: not at all 8. Moving or speaking so slowly that other people could have noticed. Or the opposite - being so fidgety or restless that you have been moving around a lot more than usual: not at all 9. Thoughts that you would be better off or of hurting yourself in some way: not at all Total score: 0 Depression Screening Interpretation: Negative 81702 - PHQ-9 Billing: Yes Source: Developed by Drs. Lewis Lopez, Clay Martinez and colleagues, with an educational chucky from [employer]. LEMUEL-7 AMB Questionnaire LEMUEL-7 Date LEMUEL - 7 assessed: 05/15/22 Source: Developed by Dixie Ramon Kurt Kroenke and colleagues, with an educational chucky from [employer]. Thrive Questionnaire Date Thrive assessed: 05/15/22 Physical Exam Vital Signs: Last Vital Signs Pulse 67 12/03/22 10:59 BP 130/68 12/03/22 10:59 Pulse Ox 99 12/03/22 10:59 Oxygen Delivery Method Room Air 12/03/22 10:59 BMI result Body Mass Index 23.8 Const General: cooperative and no acute distress Orientation/consciousness: patient oriented x3 HEENT Other: Whisper test: fail - bilateral hearing aids Neuro Other: Balance: Normal - ambulates with a cane Get up and walk: unable to Romberg: negative Tandem gait: unable to General: patient oriented x3 Assessment & Plan Assessment & Plan (1) Frequent UTI: Code(s): N39.0 - Urinary tract infection, site not specified Plan: Continue to follow-up with urology Patient is on nitrofurantoin 100 mg at bedtime (2) 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 Hill for breast exams (3) Primary hypertension: Code(s): I10 - Essential (primary) hypertension Plan: Continue current treatment Low-sodium diet (4) Multiple lacunar infarcts: Code(s): I63.81 - Other cerebral infarction due to occlusion or stenosis of small artery Plan: Continue to follow-up with neurology Dr. Kwon Patient is on aspirin 81 mg daily (5) Adult general medical exam: Code(s): Z00.00 - Encounter for general adult medical examination without abnormal findings (6) GERD (gastroesophageal reflux disease): Code(s): K21.9 - Gastro-esophageal reflux disease without esophagitis Qualifiers: Esophagitis presence: esophagitis presence not specified Qualified Code(s): K21.9 - Gastro-esophageal reflux disease without esophagitis Plan: Continue current treatment Avoid GERD trigger foods Do not lay down 2-3 hours after evening meal (7) COPD (chronic obstructive pulmonary disease): Code(s): J44.9 - Chronic obstructive pulmonary disease, unspecified Qualifiers: COPD type: unspecified COPD Qualified Code(s): J44.9 - Chronic obstruc tive pulmonary disease, unspecified Plan: Continue tiotropium daily (8) Dyslipidemia: Code(s): E78.5 - Hyperlipidemia, unspecified Plan: Continue current treatment Low-cholesterol diet (9) Osteoporosis: Code(s): M81.0 - Age-related osteoporosis without current pathological fracture Qualifiers: Osteoporosis type: age-related Presence of current pathological fracture: without current pathological fracture Qualified Code(s): M81.0 - Age-related osteoporosis without current pathological fracture Plan: Continue to follow-up with endocrinology Dr. Talbot, patient is on Prolia (10) Overactive bladder: Code(s): N32.81 - Overactive bladder Plan: Continue to follow-up with urology Quality Reporting (2019) Fall Risk Screening ([facility] 139) Last assessed Fall Risk: 12/03/22 Fall risk assessment: No Falls in past year Depression/Bipolar (159/160/161/177) PHQ-9: Total score: 0 Coding Level of Care Code Medicare Subsequent (G0439) Diagnoses Frequent UTI N39.0 History of ductal carcinoma in situ (DCIS) of breast Z86.000 Primary hypertension I10 Multiple lacunar infarcts I63.81 Adult general medical exam Z00.00 GERD (gastroesophageal reflux disease) K21.9 Esophagitis presence: esophagitis presence not specified COPD (chronic obstructive pulmonary disease) J44.9 COPD type: unspecified COPD Dyslipidemia E78.5 Osteoporosis M81.0 Osteoporosis type: age-related Presence of current pathological fracture: without current pathological fracture Overactive bladder N32.81 CPT Codes Advance Care Planning - Advance Care Planning discussion: On file, no changes ([id number]) Advance Care Planning - Time spent: 1-15 minutes, on File ([id number]) Advance Care Planning Advance Care Planning discussion: On file, no changes Date of discussion: 12/03/22 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
== END 2022-12-03 11:28 | disposition home or self-care (01) ==
PROVIDERS: Visit Provider Nurse Practitioner Family
DX: Z00.00 Encounter for general adult medical examination without abnormal findings (principal); Z86.000 Personal history of in-situ neoplasm of breast; I10 Essential (primary) hypertension; I63.81 Other cerebral infarction due to occlusion or stenosis of small artery; K21.9 Gastro-esophageal reflux disease without esophagitis; N39.0 Urinary tract infection, site not specified; J44.9 Chronic obstructive pulmonary disease, unspecified; E78.5 Hyperlipidemia, unspecified; M81.0 Age-related osteoporosis without current pathological fracture; N32.81 Overactive bladder
CPT/HCPCS: 1123F; G0439

== ENCOUNTER 2022-12-19 08:54 | Outpatient (REF) | payer MEDICARE, OTHER, SELFPAY ==
[2022-12-19 12:29] LABS: Calcium 9.6 mg/dL (8.4-10.2); Cholesterol 231 mg/dL (<200); HDL Cholesterol 79 mg/dL (>40); LDL Cholesterol Calculated 132 mg/dL (<100); Triglycerides 104 mg/dL (<150)
[2022-12-19 12:30] LABS: Alanine Aminotransferase 19 U/L (0-31); Albumin Level 3.7 g/dL (3.5-5.0); Alkaline Phosphatase 62 U/L (39-117); Anion Gap 11 (12-20); Aspartate Amino Transferase 16 U/L (5-31); Bilirubin Total 0.4 mg/dL (0.0-1.0); Blood Urea Nitrogen 23 mg/dL (9-16); Calcium 9.4 mg/dL (8.4-10.2); Carbon Dioxide 27 mmol/L (22-29); Chloride 108 mmol/L (96-108); Estimated Glomerular Filt Rate > 60; Glucose Random 91 mg/dL (60-115); Sodium 142 mmol/L (135-145); Total Protein 6.4 g/dL (6.5-8.0)
== END 2022-12-19 08:55 | disposition home or self-care (01) ==
LOC: HO.HMGCLDS 08:54
PROVIDERS: Absent Provider Psychiatry & Neurology Neurology; PCP Internal Medicine; Visit Provider Internal Medicine
DX: M81.0 Age-related osteoporosis without current pathological fracture (principal); I63.9 Cerebral infarction, unspecified
CPT/HCPCS: 36415; 80053; 80061; 82310

== ENCOUNTER 2022-12-30 14:52 | Outpatient (AMB) | payer MEDICARE, OTHER, SELFPAY ==
--- NOTE | 2022-12-30 14:59 | MHC.PC.OV ---
Vital Signs 12/30/22 15:03 Height 4 ft 9 in Weight 102 lb BMI 22.1 BP 130/52 L Blood Pressure Location Lt brachial Position Sitting Intake Visit Reasons: 4 month f/u Intake Note: Patient here for a 4 month follow up Trouble Clerk Required: No Accompanied by: Self / Same As Patient Allergies cephalexin [Keflex] Allergy (Intermediate, Verified 12/30/22 15:15) Unknown tetracycline [Tetracycline] Allergy (Intermediate, Verified 12/30/22 15:15) TONGUE SWOLLEN Medication List - Last Reconciled 12/30/22 by Shirin Duron MD acetaminophen ER (Tylenol Arthritis Pain) 1,300 mg (2 x 650 mg) PO Q6H 30 days amlodipine 5 mg PO DAILY 90 days aspirin (Adult Aspirin Regimen) 81 mg PO DAILY carvedilol 12.5 mg PO BID chlorthalidone 25 mg PO DAILY 90 days denosumab (Prolia) 60 mg subcut [id number] ezetimibe 10 mg PO DAILY 90 days glucosamine sulfate 1,000 mg PO DAILY lansoprazole 30 mg PO DAILY@0630 losartan 100 mg PO DAILY 90 days magnesium 250 mg PO DAILY multivitamin 1 tab PO DAILY nitrofurantoin macrocrystal 100 mg PO BEDTIME 90 days rosuvastatin 10 mg PO DAILY 90 days tiotropium bromide 1 cap inhalation DAILY 90 days vibegron (Gemtesa) 75 mg PO DAILY Tobacco use date assessed: 05/15/22 Fall risk assessment: No Falls in past year Last assessed Fall Risk: 12/30/22 Dental Screening Dental Screen Date: 12/30/22 Did you have a dental visit in the last 12 months?: No Did you have a dental problem in the last 6 months where you did not have access to dental care?: No Was dental information given to patient?: Patient has dentist HPI HPI Comments History of Present Illness Details This is an 87-year-old female with hypertension, COPD, dyslipidemia and osteoporosis that comes today for follow-up on her conditions. Blood pressure stable. COPD well controlled with Spiriva and now insurance does not cover the inhaler but covers the respimat. On Prolia for osteoporosis. Lipid panel will be repeated in 5 months since cholesterol medication was decreased. No chest pain or shortness of breath. Walks with a cane for gait stability. [facility] Medical History Osteoarthritis of right hip Hypertensive urgency Hospital discharge follow-up Frequent UTI Vitamin D deficiency Hypercalcemia Multiple lacunar infarcts Left hip pain Left-sided weakness Left sided sciatica Screening for breast cancer Hearing loss Urge urinary incontinence GERD (gastroesophageal reflux disease) COPD (chronic obstructive pulmonary disease) Hypertension Dyslipidemia Hypercalcemia Osteoporosis History of ductal carcinoma in situ (DCIS) of breast Surgical History History of colonoscopy History of lumpectomy of right breast History of pubovaginal sling H/O right inguinal hernia repair Family History Father Heart failure CVD (cardiovascular disease) Mother Breast cancer Social History Household Members: None Housing: House Do you presently have visiting nurse or other home services: No Alcohol intake: current Alcohol intake frequency: holidays/special occasions only Alcohol type: wine Patient Tobacco Use Status: Former Tobacco user Quit Date: 02/04/91 Tobacco use type: Cigarette e-Cigarette/Vaping Use: Never Used Second Hand Smoke Exposure: No Advance Directives Date on File: 10/19/21 service: No Current occupational status: retired Cognitive needs: Yes (CANE) Hearing needs: Yes (hearing aide) Vision needs: No (glaases) Questionnaire Thrive Questionnaire Date Thrive assessed: 05/15/22 LEMUEL-7 AMB Questionnaire LEMUEL-7 Date LEMUEL - 7 assessed: 05/15/22 Source: Developed by Drs. Lewis Lopez, Dixie Sharma, Clay Stevenson and colleagues, with an educational chucky from [employer]. Review of Systems Const All systems reviewed & are unremarkable except as noted in HPI and below Eyes Reports no additional complaints, Denies change in vision and Denies other visual disturbances Card Denies chest pain at rest, Denies chest pain with activity, Denies edema, Denies irregular heart rhythm, Denies claudication, Denies dyspnea, Denies dyspnea on exertion, Denies orthopnea, Denies paroxysmal nocturnal dyspnea and Denies slow heart rate Resp Denies cough, Denies dyspnea and Denies dyspnea on exertion GI Denies abdominal pain, Denies change in bowel habits, Denies excessive flatus, Denies nausea and Denies vomiting Denies urinary incontinence, Denies urinary hesitancy and Denies urinary urgency Musc Denies abnormal gait, Denies atrophy, Denies deformity and Denies limited range of motion Skin/Breast Denies bleeding lesions, Denies changing lesions and Denies rash Neuro Denies abnormal gait and Denies lack of coordination Physical exam (Primary Care) Vital Signs: Last Vital Signs BP 130/52 L 12/30/22 15:03 BMI result Body Mass Index 22.1 Tobacco/Smoking Status: Tobacco use Status Tobacco use date assessed 05/15/22 12/30/22 15:01 Patient Tobacco Use Status Former Tobacco user 12/30/22 15:01 Tobacco use type Cigarette 12/30/22 15:01 e-Cigarette/Vaping Use Never Used 12/30/22 15:01 Thrive Assessment: Date of Thrive Assessment Date Thrive assessed 05/15/22 12/30/22 15:01 Eyes General: appearance normal, both eyes and all related structures Eyelids: Yes eyelids normal Conjunctivae: conjunctivae normal Neck Neck: Yes normal visual inspection and Yes supple Resp Effort & Inspection: normal respiratory effort Auscultation: clear to auscultation bilaterally Cardio Jugular venous distension: no JVD Rate: regular rate Rhythm: regular rhythm Heart sounds: S1 normal heart sound present and S2 normal heart sound present Extrem General: Yes full ROM Assessment and Plan Assessment & Plan (1) Primary hypertension: Code(s): I10 - Essential (primary) hypertension Plan: Continue amlodipine and chlorthalidone. Blood pressure goal is equal or less than 130/80. (2) COPD (chronic obstructive pulmonary disease): Code(s): J44.9 - Chronic obstructive pulmonary disease, unspecified Qualifiers: COPD type: unspecified COPD Qualified Code(s): J44.9 - Chronic obstructive pulmonary disease, unspecified Plan: Continue Spiriva. Use rescue inhaler as needed. (3) Osteoporosis: Code(s): M81.0 - Age-related osteoporosis without current pathological fracture Qualifiers: Osteoporosis type: age-related Presence of current pathological fracture: without current pathological fracture Qualified Code(s): M81.0 - Age-related osteoporosis without current pathological fracture Plan: Continue Prolia. (4) Dyslipidemia: Code(s): E78.5 - Hyperlipidemia, unspecified Plan: Continue statins and Zetia. Repeat lipid panel in 5 months. LDL goal should be less than 70. Orders: Orders Lipid Panel 5 Months E78.5 - Hyperlipidemia, unspecified Comprehensive [place]. Panel Fast 5 Months I10 - Essential (primary) hypertension Vitamin D 25-OH Total 5 Months E55.9 - Vitamin D deficiency, unspecified Medications: New tiotropium bromide 1.25 mcg/actuation (Spiriva Respimat) 2 puffs inhalation BEDTIME 4 grams 2RF 30 days J44.9 - Chronic obstructive pulmonary disease, unspecified Coding Level of Care Code Est Pt Level 4 (82032) Diagnoses Primary hypertension I10 Chronic obstructive pulmonary disease, unspecified COPD type J44.9 COPD type: unspecified COPD Age-related osteoporosis without current pathological fracture M81.0 Osteoporosis type: age-related Presence of current pathological fracture: without current pathological fracture Dyslipidemia E78.5 Time Spent (min) 23
[2022-12-30 15:03] VITALS: BP 130/52; BMI 22.1
== END 2022-12-30 15:31 | disposition home or self-care (01) ==
PROVIDERS: PCP Internal Medicine; Visit Provider Internal Medicine
DX: I10 Essential (primary) hypertension (principal); J44.9 Chronic obstructive pulmonary disease, unspecified; M81.0 Age-related osteoporosis without current pathological fracture; E78.5 Hyperlipidemia, unspecified
CPT/HCPCS: 99214

== ENCOUNTER 2023-02-14 11:35 | Outpatient (AMB) | payer MEDICARE, OTHER, SELFPAY ==
--- NOTE | 2023-02-14 11:40 | A.OFFVIS_ITS ---
Intake Intake Visit Reasons: 3m follow up Intake Note: Patient presents today for a follow-up on Cystocele, unspecified, Overactive bladder, chronic cystitis: Meds- Gemtesa Allergies to Antibiotic- Cephalexin Blood Thinner- Aspirin PVR- 0 mL Home Visitor Required: No Accompanied by: Self / Same As Patient Allergies cephalexin [Keflex] Allergy (Intermediate, Verified 02/14/23 12:01) Unknown tetracycline [Tetracycline] Allergy (Intermediate, Verified 02/14/23 12:01) TONGUE SWOLLEN HPI HPI Comments History of Present Illness Details Chichi is an 87-year-old female who presents today to the office for a follow-up. 02/14/2023? She has a past medical history of hypertension, GERD, COPD, dyslipidemia, and osteoporosis, ductal insitu breast cancer. She also has history of stroke. Patient has lower urinary tract symptoms of frequency and urge incontinence. She has been on nitrofurantoin 100mg daily for prophylaxis and feels that this has significantly helped and wants to continue this medication. She was last seen by me on 10/16/2022 to discuss cystocele, exam noted mild pelvic floor laxity. I discontinued tolterodine at that time started Gemtesa 75 mg QD and Estrogen cream. Patient states that the cream has caused irritation on her skin and had burning sensation, so she has discontinued using the cream. Patient states that she has been taking Gemtesa 75 mg daily but she feels that she is not emptying her bladder as easily and states that she feels like she needs to go to the bathroom more frequently. Review of charts: Last visit: 10/16/22-- Pelvic exam: Mild cystocele, no significant prolapse, atrophic vaginitis noted. 02/14/2023: Evaluation today?UA?leukocyt es: negative; blood: negative. 02/14/2023: Plan: I will resume tolterodine 4 mg as she tolerated it better. Cont. Nitrofurantoin 100mg daily. DC estrace cream. Follow-up in 6 months. [facility] Medical History Osteoarthritis of right hip Hypertensive urgency Hospital discharge follow-up Frequent UTI Vitamin D deficiency Hypercalcemia Multiple lacunar infarcts Left hip pain Left-sided weakness Left sided sciatica Screening for breast cancer Hearing loss Urge urinary incontinence GERD (gastroesophageal reflux disease) COPD (chronic obstructive pulmonary disease) Hypertension Dyslipidemia Hypercalcemia Osteoporosis History of ductal carcinoma in situ (DCIS) of breast Surgical History History of colonoscopy History of lumpectomy of right breast History of pubovaginal sling H/O right inguinal hernia repair Family History Father Heart failure CVD (cardiovascular disease) Mother Breast cancer Social History Household Members: None Housing: House Do you presently have visiting nurse or other home services: No Alcohol intake: current Alcohol intake frequency: holidays/special occasions only Alcohol type: wine Patient Tobacco Use Status: Former Tobacco user Quit Date: 02/04/91 Tobacco use type: Cigarette e-Cigarette/Vaping Use: Never Used Second Hand Smoke Exposure: No Advance Directives Date on File: 10/19/21 service: No Current occupational status: retired Cognitive needs: Yes (CANE) Hearing needs: Yes (hearing aide) Vision needs: No (glaases) Review of Systems Const All systems reviewed & are unremarkable except as noted in HPI and below Reports no additional complaints Eyes Reports no additional complaints ENT Reports no additional complaints Card Denies dyspnea Resp Denies cough and Denies dyspnea GI Reports no additional complaints Reports no additional complaints Musc Reports no additional complaints Skin/Breast Denies rash and Denies unusual bruising Neuro Reports no additional complaints Psych Reports no additional complaints Endo Reports no additional complaints Adarsh/Lymph Reports no additional complaints Aller/Immun Reports no additional complaints Office Procedures Post Void Residual Post Residual Void Post Void Residual (PVR): 0 [id number] Void Residual by ultrasound Results AMB Urinalysis, Automated UA Leukoctes 0 Louie/uL Last Edit by BISHNU Rojas on 02/14/23 12:01 UA Nitrite Negative Last Edit by Megan Torres A on 02/14/23 12:01 UA Urobilinogen 0.2 mg/dL Last Edit by Megan Torres A on 02/14/23 12:0 1 UA Protein 0 mg/dL Last Edit by Megan Torres A on 02/14/23 12:01 UA pH 6.0 Last Edit by Megan Torres A on 02/14/23 12:01 UA Blood 0 Golden/uL Last Edit by Megan Torres, A on 02/14/23 12:01 UA Specific [place] 1.025 Last Edit by Megan Torres A on 02/14/23 12: 01 UA Ketone Positive Last Edit by Megan Torres [facility] on 02/14/23 12:01 15mg Megan Torres 02/14/23 12:01 UA Bilirubin 0 mg/dL Last Edit by Megan Torres A on 02/14/23 12:01 UA Glucose 0 mg/dL Last Edit by Megan Torres A on 02/14/23 12:01 Results Reviewed Results Reviewed: Laboratory Last Values Urine pH (Auto) 6.0 02/14/23 11:42 Specific [place] (Auto) 1.025 02/14/23 11:42 Urine Protein (Auto) 0 mg/dL 02/14/23 11:42 Glucose (UA)(Auto) 0 mg/dL 02/14/23 11:42 Urine Ketones (Auto) Positive 02/14/23 11:42 Urine Blood (Auto) 0 Golden/uL 02/14/23 11:42 Urine Nitrite (Auto) Negative 02/14/23 11:42 Urine Bilirubin (Auto) 0 mg/dL 02/14/23 11:42 Urine Urobilinogen (Auto) 0.2 mg/dL 02/14/23 11:42 Leukocyte Esterase (Auto) 0 Louie/uL 02/14/23 11:42 Assessment & Plan Assessment & Plan (1) Cystocele, unspecified: Code(s): N81.10 - Cystocele, unspecified (2) Urge urinary incontinence: Code(s): N39.41 - Urge incontinence (3) Overactive bladder: Code(s): N32.81 - Overactive bladder (4) Renal cyst: Code(s): N28.1 - Cyst of kidney, acquired (5) Chronic cystitis: Code(s): N30.20 - Other chronic cystitis without hematuria (6) Atrophic vaginitis: Code(s): N95.2 - Postmenopausal atrophic vaginitis Plan I will resume tolterodine 4 mg as she tolerated it better. Cont. Nitrofurantoin 100mg daily. DC estrace cream. Follow-up in 6 months. Orders: Orders AMB Urinalysis Automated 02/14/23 Z13.9 - Encounter for screening, unspecified AMB Post Void Residual by ultrasound 02/14/23 N39.8 - Other specified disorders of urinary system Medications: New tolterodine ER 4 mg PO DAILY 90 caps 3RF Discontinued vibegron Discontinued Reason: Doctor's Order 75 mg PO DAILY 90 tabs 1RF Patient Instructions: The patient had an opportunity to ask questions regarding treatment plan. All questions were answered. Imaging, Laboratory studies and physical exam results were discussed and reviewed in detail. No major barriers to understanding were identified. The patient expressed understanding and agreement with the above treatment plan. The patient is aware they should contact our office by phone for worsening of their current condition or the appearance of new symptoms. Compliance is encouraged with any medications and followup testing that is ordered. It is a privilege to be allowed the opportunity to participate in the urologic care of your patient. If you have any questions or concerns regarding treatment for the above conditions please do not hesitate to contact me. The office telephone contact is [phone]. This note is constructed in part using voice recognition software. While every effort has been made to ensure accuracy garbage stoker errors may have been included. Yours sincerely, Daysi Euceda MD Coding Level of Care Code Est Pt Level 4 (27212) Diagnoses Cystocele, unspecified N81.10 Urge urinary incontinence N39.41 Overactive bladder N32.81 Renal cyst N28.1 Chronic cystitis N30.20 Atrophic vaginitis N95.2 CPT Codes Post Residual Void - PVR CPT Code: 03819-[id number] Void Residual by ultrasound ([id number])
== END 2023-02-14 12:10 | disposition home or self-care (01) ==
PROVIDERS: PCP Internal Medicine; Visit Provider Urology
DX: N81.10 Cystocele, unspecified (principal); N39.41 Urge incontinence; N32.81 Overactive bladder; N28.1 Cyst of kidney, acquired; N30.20 Other chronic cystitis without hematuria; N95.2 Postmenopausal atrophic vaginitis
CPT/HCPCS: 99214

== ENCOUNTER → 2023-02-14 11:35 | Outpatient (BNVA) | payer MEDICARE, OTHER, SELFPAY | PROVIDERS: PCP Internal Medicine; Visit Provider Urology | DX: N81.10 Cystocele, unspecified (principal); N39.41 Urge incontinence; N32.81 Overactive bladder; N28.1 Cyst of kidney, acquired; N30.20 Other chronic cystitis without hematuria; N95.2 Postmenopausal atrophic vaginitis | CPT/HCPCS: 51798; 81003; 99212 ==

== ENCOUNTER 2023-03-10 10:55 | Outpatient (AMB) | payer MEDICARE, OTHER, SELFPAY ==
[2023-03-10 11:05] VITALS: BP 158/58; PULSE 80; O2SAT 99; BMI 21.9
--- NOTE | 2023-03-10 11:05 | MHC.PC.OV ---
Vital Signs 03/10/23 11:05 Height 4 ft 9 in Weight 101 lb 4 oz BMI 21.9 BP 158/58 H Blood Pressure Location Lt brachial Position Sitting Pulse 80 Pulse Source Pulse Oximeter Pulse Oximetry (%) 99 Oxygen Delivery Method Room Air Intake Visit Reasons: Swollen feet more than usual, blotches on legs Lead Recoverer Required: No Accompanied by: Self / Same As Patient Allergies cephalexin [Keflex] Allergy (Intermediate, Verified 03/10/23 11:20) Unknown tetracycline [Tetracycline] Allergy (Intermediate, Verified 03/10/23 11:20) TONGUE SWOLLEN Medication List - Last Reconciled 03/10/23 by Maurice Rojas PA-C acetaminophen ER (Tylenol Arthritis Pain) 1,300 mg (2 x 650 mg) PO Q6H 30 days amlodipine 5 mg PO DAILY 90 days aspirin (Adult Aspirin Regimen) 81 mg PO DAILY carvedilol 12.5 mg PO BID chlorthalidone 25 mg PO DAILY 90 days denosumab (Prolia) 60 mg subcut [id number] ezetimibe 10 mg PO DAILY 90 days glucosamine sulfate 1,000 mg PO DAILY lansoprazole 30 mg PO DAILY@0630 losartan 100 mg PO DAILY 90 days magnesium 250 mg PO DAILY multivitamin 1 tab PO DAILY nitrofurantoin macrocrystal 100 mg PO BEDTIME 90 days rosuvastatin 10 mg PO DAILY 90 days tiotropium bromide 1 cap inhalation DAILY 90 days tiotropium bromide 1.25 mcg/actuation (Spiriva Respimat) 2 puffs inhalation BEDTIME 30 days vibegron (Gemtesa) 75 mg PO DAILY 90 days Tobacco use date assessed: 05/15/22 Fall risk assessment: No Falls in past year Last assessed Fall Risk: 03/10/23 Dental Screening Dental Screen Date: 03/10/23 Did you have a dental visit in the last 12 months?: Yes Did you have a dental problem in the last 6 months where you did not have access to dental care?: No Was dental information given to patient?: Patient has dentist HPI Swollen feet more than usual, blotches on legs HPI Details Patient is an 87-year-old female here today for problem visit. Reports noting elevated blood pressure readings over the last week. She does report getting a cortisone injection recently though has never bothered her in the past. She has noted some dark spots over her anterior shins and forearms. She is concerned about a blood pressure as it usually runs low in today slightly elevated at 158/80. She does report some left-sided facial numbness and is concerned about a stroke which he has had in the past. [facility] Medical History Osteoarthritis of right hip Hypertensive urgency Hospital discharge follow-up Frequent UTI Vitamin D deficiency Hypercalcemia Multiple lacunar infarcts Left hip pain Left-sided weakness Left sided sciatica Screening for breast cancer Hearing loss Urge urinary incontinence GERD (gastroesophageal reflux disease) COPD (chronic obstructive pulmonary disease) Hypertension Dyslipidemia Hypercalcemia Osteoporosis History of ductal carcinoma in situ (DCIS) of breast Surgical History History of colonoscopy History of lumpectomy of right breast History of pubovaginal sling H/O right inguinal hernia repair Family History Father Heart failure CVD (cardiovascular disease) Mother Breast cancer Social History Household Members: None Housing: House Do you presently have visiting nurse or other home services: No Alcohol intake: current Alcohol intake frequency: holidays/special occasions only Alcohol type: wine Patient Tobacco Use Status: Former Tobacco user Quit Date: 02/04/91 Tobacco use type: Cigarette e-Cigarette/Vaping Use: Never Used Second Hand Smoke Exposure: No Advance Directives Date on File: 10/19/21 service: No Current occupational status: retired Cognitive needs: Yes (CANE) Hearing needs: Yes (hearing aide) Vision needs: No (glaases) Questionnaire Thrive Questionnaire Date Thrive assessed: 05/15/22 LEMUEL-7 AMB Questionnaire LEMUEL-7 Date LEMUEL - 7 assessed: 05/15/22 Source: Developed by Drs. Lewis Lopez, Dixie Sharma, Clay Stevenson and colleagues, with an educational chucky from [employer] Review of Systems Const Denies headache(s) Eyes Denies loss of vision ENT Denies vertigo, Denies dizziness, Denies headache(s) and Denies sore throat Card Denies chest pain, Denies leg edema and Denies lightheadedness Resp Denies cough, Denies hemoptysis and Denies wheezing GI Denies abdominal pain, Denies melena, Denies constipation, Denies diarrhea and Denies vomiting Denies urinary frequency, Denies dysuria and Denies urinary urgency Musc Denies arthralgias, Denies joint swelling, Denies numbness and Denies tingling Neuro Denies Abnormal speech present, Denies behavioral changes, Denies vertigo, Denies dizziness, Denies headache(s), Denies loss of vision, Denies memory loss, Denies numbness and Denies tingling Psych Denies anxiety, Denies behavioral changes, Denies depression, Denies memory loss and Denies panic attacks Adarsh/Lymph Denies easy bleeding and Denies easy bruising Aller/Immun Denies wheezing Physical exam (Primary Care) Vital Signs: Last Vital Signs Pulse 80 03/10/23 11:05 BP 158/58 H 03/10/23 11:05 Pulse Ox 99 03/10/23 11:05 Oxygen Delivery Method Room Air 03/10/23 11:05 BMI result Body Mass Index 21.9 Tobacco/Smoking Status: Tobacco use Status Tobacco use date assessed 05/15/22 03/10/23 11:14 Patient Tobacco Use Status Former Tobacco user 03/10/23 11:14 Tobacco use type Cigarette 03/10/23 11:14 e-Cigarette/Vaping Use Never Used 03/10/23 11:14 Thrive Assessment: Date of Thrive Assessment Date Thrive assessed 05/15/22 03/10/23 11:14 Const General: healthy appearing, no acute distress, alert and awake Nutritional Appearance: well nourished Orientation/consciousness: oriented to person, oriented to place and oriented to time [facility] Ears: TM's normal bilaterally General nose exam: Normal nasal mucous membranes and turbinates present Eyes Conjunctivae: conjunctivae normal Sclerae: sclerae normal Pupils: Equal, round and reactive pupils present Neck Neck: Yes no lymphadenopathy and Yes no JVD Thyroid: Thyroid normal Carotids: no bruits Resp Effort & Inspection: normal respiratory effort and not tachypneic Auscultation: no crackles, no rales, no rhonchi and no wheezes Cardio Rate: regular rate Rhythm: regular rhythm Heart sounds: no murmurs and normal S1 and S2 GI Palpation (GI): Soft to palpation, nontender, no hepatomegaly and no splenomegaly Auscultation: normal bowel sounds Skin General skin exam: no rashes or lesions noted and dry skin Neuro General: oriented to person, oriented to place and oriented to time Cranial nerves: Yes Equal, round and reactive pupils present Speech: No Abnormal speech present Gait exam (Neuro): Normal gait present Motor exam (neuro): no tremor noted Extrem Right upper extremity: full ROM Left upper extremity: full ROM Right lower extremity: full ROM; no edema Left lower extremity: full ROM; no edema Psych Mental Status: mental status grossly normal Speech and movement: Normal speech and movement present Affect: normal affect Attitude: cooperative Thought process: Normal thought process present Assessment and Plan Assessment & Plan (1) Hypertension: Code(s): I10 - Essential (primary) hypertension Qualifiers: Hypertension type: essential hypertension Qualified Code(s): I10 - Essential (primary) hypertension Plan: Patien's blood pressure slightly elevated today. This is in the setting of a urinary med change and a cortisone injection over the last 4 weeks. She continues on amlodipine, thiazide diuretic, losartan 100 mg and carvedilol. Advised to continue monitoring blood pressure at home (2) Swelling of lower extremity: Code(s): M79.89 - Other specified soft tissue disorders Plan: Slight swelling of the left ankle. No pain report or erythema noted (3) History of lacunar cerebrovascular accident (CVA): Code(s): Z86.73 - Personal history of transient ischemic attack (TIA), and cerebral infarction without residual deficits Plan: Patient does have a history of lacunar CVA. Has noted elevated blood pressure readings in left-sided facial numbness over the last few days. Will send for CT head to evaluate for any acute CVA. Advised to call ambulance and go to the ER if symptoms worsen. (4) Facial paresthesia: Code(s): R20.2 - Paresthesia of skin Orders: Orders IRON PROFILE 03/10/23 D50.9 - Iron deficiency anemia, unspecified, M79.89 - Other specified soft tissue disorders CT head/brain wo IV con Today R20.2 - Paresthesia of skin, Z86.73 - Personal history of transient ischemic attack (TIA), and cerebral infarction without residual deficits Basic Metabolic Panel 03/10/23 M79.89 - Other specified soft tissue disorders Complete Blood Count no Diff 03/10/23 M79.89 - Other specified soft tissue disorders Liver Panel 03/10/23 M79.89 - Other specified soft tissue disorders Coding Level of Care Code Est Pt Level 4 (39969) Diagnoses Essential hypertension I10 Hypertension type: essential hypertension Swelling of lower extremity M79.89 History of lacunar cerebrovascular accident (CVA) Z86.73 Facial paresthesia R20.2
== END 2023-03-10 11:48 | disposition home or self-care (01) ==
PROVIDERS: PCP Internal Medicine; Visit Provider Physician Assistant
DX: I10 Essential (primary) hypertension (principal); M79.89 Other specified soft tissue disorders; Z86.73 Personal history of transient ischemic attack (TIA), and cerebral infarction without residual deficits; R20.2 Paresthesia of skin
CPT/HCPCS: 99214

== ENCOUNTER 2023-03-10 12:14 | Outpatient (REF) | payer MEDICARE, OTHER, SELFPAY ==
[2023-03-10 13:25] LABS: Hematocrit 33.6 % (37.0-47.0); Hemoglobin 10.9 g/dl (12.0-16.0); Mean Corpuscular HGB Conc 32.4 g/dl (31.0-35.0); Mean Corpuscular Hemoglobin 30.9 pg (27.0-33.0); Mean Corpuscular Volume 95.2 fL (80.0-98.0); Mean Platelet Volume 9.7 fL (9.4-12.3); Platelet Count 239 X10*3/uL (160-400); Red Blood Count 3.53 X10*6/uL (4.20-5.50); Red Cell Distribution Width 13.7 % (11.0-16.0); White Blood Count 5.6 X10*3/uL (4.8-10.8)
[2023-03-10 14:07] LABS: Alanine Aminotransferase 22 U/L (0-31); Albumin Level 3.5 g/dL (3.5-5.0); Alkaline Phosphatase 59 U/L (39-117); Anion Gap 8 (12-20); Aspartate Amino Transferase 16 U/L (5-31); Bilirubin Direct 0.2 mg/dL (0.0-0.5); Bilirubin Total 0.7 mg/dL (0.0-1.0); Blood Urea Nitrogen 23 mg/dL (9-16); Calcium 9.6 mg/dL (8.4-10.2); Carbon Dioxide 28 mmol/L (22-29); Chloride 110 mmol/L (96-108); Estimated Glomerular Filt Rate > 60; Glucose Random 117 mg/dL (60-115); Iron 69 mcg/dL (30-160); Percent Iron Saturation 25 % (15-50); Potassium 3.9 mmol/L (3.3-5.1); Sodium 142 mmol/L (135-145); Total Iron Binding Capacity 272 mcg/dL (228-428); Unsaturated Iron Binding 203 ug/dL
== END 2023-03-10 12:15 | disposition home or self-care (01) ==
LOC: HO.10HDL 12:14
PROVIDERS: Visit Provider Physician Assistant
DX: M79.89 Other specified soft tissue disorders (principal); D50.9 Iron deficiency anemia, unspecified
CPT/HCPCS: 36415; 80048; 80076; 83540; 85027

== ENCOUNTER 2023-03-26 11:53 | Outpatient (AMB) | payer MEDICARE, OTHER, SELFPAY ==
[2023-03-26 12:13] VITALS: BP 110/60; PULSE 72; BMI 21.9
--- NOTE | 2023-03-26 12:13 | HO.NEPHOV_ITS ---
HPI HPI Comments History of Present Illness Details I had the privilege of seeing Chichi in follow-up of her hypertension. She has history of cerebrovascular accident. She monitors her blood pressure closely. She denies any chest pain, dizziness, headache, visual disturbance, pedal edema. She monitors her blood pressure at home. Her blood pressure had been remaining close to goal. She avoids nonsteroidal anti-inflammatory medication and chief with a low-sodium diet. She is awaiting hip surgery. She has history of renal cyst. She has no flank pain, hematuria or any other urinary symptoms. She otherwise feels well. [facility] Medical History Osteoarthritis of right hip Hypertensive urgency Hospital discharge follow-up Frequent UTI Vitamin D deficiency Hypercalcemia Multiple lacunar infarcts Left hip pain Left-sided weakness Left sided sciatica Screening for breast cancer Hearing loss Urge urinary incontinence GERD (gastroesophageal reflux disease) COPD (chronic obstructive pulmonary disease) Hypertension Dyslipidemia Hypercalcemia Osteoporosis History of ductal carcinoma in situ (DCIS) of breast Surgical History History of colonoscopy History of lumpectomy of right breast History of pubovaginal sling H/O right inguinal hernia repair Family History Father Heart failure CVD (cardiovascular disease) Mother Breast cancer Social History Household Members: None Housing: House Do you presently have visiting nurse or other home services: No Alcohol intake: current Alcohol intake frequency: holidays/special occasions only Alcohol type: wine Patient Tobacco Use Status: Former Tobacco user Quit Date: 02/04/91 Tobacco use type: Cigarette e-Cigarette/Vaping Use: Never Used Second Hand Smoke Exposure: No Advance Directives Date on File: 10/19/21 service: No Current occupational status: retired Cognitive needs: Yes (CANE) Hearing needs: Yes (hearing aide) Vision needs: No (glaases) Vital Signs 03/26/23 12:13 Height 4 ft 9 in Weight 101 lb 6 oz BMI 21.9 BP 110/60 Blood Pressure Location Lt brachial Position Sitting Pulse 72 Pulse Source Pulse Oximeter Physical Exam Vital Signs: Last Vital Signs Pulse 72 03/26/23 12:13 BP 110/60 03/26/23 12:13 BMI result Body Mass Index 21.9 Const Other: Ambulating with a cane General: no acute distress Orientation/consciousness: patient oriented x3 HEENT Head: Yes normocephalic Mouth: Normal oral and palatal mucosa present Eyes EOM: EOMs intact bilaterally Neck Neck: Yes supple Resp Auscultation: clear to auscultation bilaterally Cardio Jugular venous distension: no JVD Rate: regular rate GI Palpation (GI): Soft to palpation Auscultation: normal bowel sounds General: Yes no CVA tenderness Back/Spine/Pelvis Back: no CVA tenderness Skin General skin exam: no rashes or lesions noted Neuro General: patient oriented x3 and moves all extremities Extrem General: Yes no pedal edema Assessment & Plan Assessment & Plan (1) Renal cyst: Code(s): N28.1 - Cyst of kidney, acquired (2) Hypertension: Code(s): I10 - Essential (primary) hypertension Qualifiers: Hypertension type: essential hypertension Qualified Code(s): I10 - Essential (primary) hypertension Plan Chichi has longstanding hypertension. She has history of CVA. She is not known to have any significant proteinuria. Her renal functions are at baseline. Her serum potassium is normal. She is compliant with her medications. She monitors her blood pressure very closely at home and has been at goal. She avoids nonsteroidal anti-inflammatory medications and maintain good hydration. She is looking forward for her hip surgery. There are no reservation from a renal perspective to have her undergo hip surgery. Her renal cyst has been asymptomatic. After the next visit I will order a follow-up renal ultrasound to look at her renal cyst. She maintains a low-sodium diet. I did not make any medication changes today. All questions answered. Follow-up given. Orders: Orders Blood Urea Nitrogen 03/26/23 I10 - Essential (primary) hypertension, N28.1 - Cyst of kidney, acquired Creatinine 03/26/23 I10 - Essential (primary) hypertension, N28.1 - Cyst of kidney, acquired Calcium 03/26/23 I10 - Essential (primary) hypertension, N28.1 - Cyst of kidney, acquired Electrolytes 03/26/23 I10 - Essential (primary) hypertension, N28.1 - Cyst of kidney, acquired Medications: New carvedilol must administer with a meal/food 12.5 mg PO BID 90 days 180 tabs 3RF Coding Level of Care Code Est Pt Level 3 (12081) Diagnoses Renal cyst N28.1 Essential hypertension I10 Hypertension type: essential hypertension Results Reviewed Nephrology Results: Hgb 10.9 g/dl (12.0-16.0) L 03/10/23 WBC 5.6 X10*3/uL (4.8-10.8) 03/10/23 Plt Count 239 X10*3/uL (160-400) 03/10/23 Sodium 142 mmol/L (135-145) 03/10/23 Potassium 3.9 mmol/L (3.3-5.1) 03/10/23 Chloride 110 mmol/L (96-108) H 03/10/23 Carbon Dioxide 28 mmol/L (22-29) 03/10/23 BUN 23 mg/dL (9-16) H 03/10/23 Creatinine 0.78 mg/dL (0.5-1.4) 03/10/23 Calcium 9.6 mg/dL (8.4-10.2) 03/10/23 Phosphorus 3.2 mg/dL (2.7-4.5) 11/06/22 PTH Intact 55 pg/mL (16-77) 11/06/22 Urine Creatinine 47 mg/dL (20-275) 11/06/22
== END 2023-03-26 12:49 | disposition home or self-care (01) ==
PROVIDERS: PCP Internal Medicine; Visit Provider Internal Medicine Nephrology
DX: N28.1 Cyst of kidney, acquired (principal); I10 Essential (primary) hypertension
CPT/HCPCS: 99213

== ENCOUNTER → 2023-03-26 11:53 | Outpatient (BNVA) | payer MEDICARE, OTHER, SELFPAY | PROVIDERS: PCP Internal Medicine; Visit Provider Internal Medicine Nephrology | DX: N28.1 Cyst of kidney, acquired (principal); I10 Essential (primary) hypertension | CPT/HCPCS: 99212 ==

== ENCOUNTER 2023-04-26 10:51 | Emergency (ER) | payer MEDICARE, OTHER, SELFPAY ==
--- NOTE | 2023-04-26 11:41 | ED.GENADULT ---
HPI - General Adult General Chief complaint: Extremity Problem Stated complaint: ankles swelling Time Seen by Provider: 04/26/23 12:39 Source: patient Mode of arrival: ambulatory Limitations: no limitations History of Present Illness HPI narrative: Patient is an 88 year old assigned female at with a history of HTN, GERD, and COPD presenting to the emergency department today with bilateral ankle swelling and bilateral delvalle pain. Patient states that over the last few months she has noticed her bilateral ankles swell more and she has pain that runs from the front of her knees to the front of her ankles. Patient denies any dizziness, lightheadedness, abdominal pain, nausea, vomiting, fever, chills, blurry vision, double vision, loss of vision, chest pain, difficulty breathing, shortness of breath, back pain, night sweats, pain with urination, increased urinary frequency, increased urinary urgency, blood in her urine or stool, syncope or a near syncopal episode, recent trauma or falls, bowel incontinence, bladder incontinence, bowel retention, bladder retention, or any other complaints at this time. Onset (ago): month(s) Location: left, right and lower extremity Severity: mild Severity scale (1-10): 2 Pain Consistency: intermittent Relieving factors: none Exacerbating factors: none Associated symptoms: denies other symptoms Treatments prior to arrival: none Related Data Home Medications Medication Instructions Recorded Confirmed glucosamine sulfate 1,000 mg 1,000 mg PO DAILY 02/08/20 03/10/23 capsule multivitamin 1 tab PO DAILY 02/08/20 03/10/23 aspirin 81 mg tablet,delayed 81 mg PO DAILY 02/24/20 03/10/23 release (Adult Aspirin Regimen) denosumab 60 mg/mL subcutaneous 60 mg subcut [id number] 05/16/20 03/10/23 syringe (Prolia) magnesium 250 mg tablet 250 mg PO DAILY 05/24/21 03/10/23 carvedilol 12.5 mg tablet 12.5 mg PO BID 01/03/22 03/10/23 tolterodine 4 mg capsule,extended 4 mg PO DAILY 03/26/23 release 24 hr Previous Rx's Medication Instructions Recorded losartan 100 mg tablet 100 mg PO DAILY 90 days #90 tabs 05/28/22 acetaminophen 650 mg 1,300 mg (2 x 650 mg) PO Q6H Pain 08/20/22 tablet,extended release (Tylenol (Scale Score 1-3) 30 days #240 tabs Arthritis Pain) chlorthalidone 25 mg tablet 25 mg PO DAILY 90 days #90 tabs 11/02/22 ezetimibe 10 mg tablet 10 mg PO DAILY 90 days #90 tabs 11/28/22 tiotropium bromide 18 mcg capsule 1 cap inhalation DAILY 90 days #90 11/30/22 with inhalation device inhalations amlodipine 5 mg tablet 5 mg PO DAILY 90 days #90 tabs 12/13/22 rosuvastatin 10 mg tablet 10 mg PO DAILY 90 days #90 tabs 12/23/22 nitrofurantoin macrocrystal 100 mg 100 mg PO BEDTIME 90 days #90 caps 12/31/22 capsule vibegron 75 mg tablet (Gemtesa) 75 mg PO DAILY 90 days #90 tabs 02/28/23 lansoprazole 30 mg capsule,delayed 30 mg PO DAILY@0630 #90 caps 03/01/23 release carvedilol 12.5 mg tablet 12.5 mg PO BID 90 days #180 tabs 03/26/23 tiotropium bromide 1.25 2 puff inhalation BEDTIME 30 days 04/22/23 mcg/actuation mist for inhalation #4 grams (Spiriva Respimat) Allergies Allergy/AdvReac Type Severity Reaction Status Date / Time cephalexin [Keflex] Allergy Intermediate Unknown Verified 04/26/23 11:42 tetracycline [Tetracycline] Allergy Intermediate TONGUE Verified 04/26/23 11:42 SWOLLEN Review of Systems Constitutional: Constitutional: Reports no additional constitutional complaints, Denies chills, Denies fever(s) and Denies night sweats Eyes: Eyes: Reports no additional eye complaints, Denies blurry vision, Denies change in vision, Denies diplopia, Denies eye discharge, Denies loss of vision and Denies eye pain ENT: Denies dizziness Cardiovascular: Cardiovascular: Reports no additional cardiovascular complaints, Denies chest pain, Denies lightheadedness, Denies Loss of Consciousness and Denies dyspnea Respiratory: Respiratory: Reports no additional respiratory complaints and Denies dyspnea Gastrointestinal: Gastrointestinal: Reports no additional gastrointestinal complaints, Denies abdominal pain, Denies melena, Denies hematochezia, Denies change in bowel habits and Denies change in stool character Genitourinary: Genitourinary: Denies hematuria, Denies urinary frequency, Denies dysuria, Denies urinary incontinence, Denies urinary hesitancy and Denies urinary urgency Musculoskeletal: Musculoskeletal: Reports no additional musculoskeletal complaints, Denies numbness and Denies tingling Comments: bilateral leg pain and ankle swelling Neurologic: Denies dizziness, Denies loss of vision, Denies numbness and Denies tingling Psychiatric: Psychiatric: Reports no additional psychiatric complaints Endocrine: Endocrine: Reports no additional endocrine complaints Hematologic/Lymphatic: Hematologic/Lymphatic: Reports no additional hematologic/lymphatic complaints Allergic/Immunologic: Allergic/Immunologic: Reports no additional allergic/immunologic complaints [facility] Past Medical History Attestation statement: The following information was validated with the patient. Source: old records reviewed and nursing notes reviewed Onset Date is defined in the Problem List Problems that require an onset date and time if occurred within 24 hrs of arrival to the ED Aortic Dissection and Rupture; Neurologic impairment; Cardiopulmonary Arrest; Endotracheal Intubation; Insertion or Replacement of Mechanical Circulatory Assist Device Medical History Acute leg pain Facial paresthesia Swelling of lower extremity Right leg swelling Hospital discharge follow-up Hypertensive urgency Constipation Frequent UTI Edema of left lower leg Leg cramping Primary hypertension Uncontrolled hypertension Left hip pain Left-sided weakness Left sided sciatica Adult general medical exam Screening for breast cancer Osteoarthritis of right hip Hospital discharge follow-up Vitamin D deficiency Hypercalcemia Multiple lacunar infarcts Hearing loss Urge urinary incontinence GERD (gastroesophageal reflux disease) COPD (chronic obstructive pulmonary disease) Hypertension Dyslipidemia Hypercalcemia Osteoporosis History of ductal carcinoma in situ (DCIS) of breast Surgical History History of colonoscopy History of lumpectomy of right breast History of pubovaginal sling H/O right inguinal hernia repair Family History Family History Father Heart failure CVD (cardiovascular disease) Mother Breast cancer Social History Social History Household Members: None Housing: House Do you presently have visiting nurse or other home services: No Alcohol intake: current Alcohol intake frequency: holidays/special occasions only Alcohol type: wine Patient Tobacco Use Status: Former Tobacco user Quit Date: 02/04/91 Tobacco use type: Cigarette e-Cigarette/Vaping Use: Never Used Second Hand Smoke Exposure: No Advance Directives: Yes Advance Directives on File: Yes Advance Directives Date on File: 10/19/21 service: No Current occupational status: retired Cognitive needs: Yes (CANE) Hearing needs: Yes (hearing aide) Vision needs: No (glaases) Physical Exam ED Vital Signs: Vital Signs - 24 hr 04/26/23 11:44 Temperature 97.6 F Pulse Rate 76 Respiratory Rate 16 Blood Pressure 162/70 H Pulse Oximetry 98 Oxygen Delivery Method Room Air BMI result Body Mass Index 21.9 Const General: cooperative, no acute distress, alert and awake Nutritional Appearance: well nourished Orientation/consciousness: patient oriented x3 Limitations: no limitations HENMT Head: Yes normal to inspection and Yes atraumatic Ears: hearing grossly normal bilaterally and external ears normal General nose exam: Normal external nose present, no nasal discharge noted and no epistaxis Face and sinus: Yes normal facial exam, No abrasion and No laceration Mouth: Normal oral and palatal mucosa present, no drooling and no muffled voice Eyes General: appearance normal, both eyes and all related structures Periorbital: periorbital findings normal Eyelids: Yes eyelids normal Conjunctivae: conjunctivae normal Pupils: Equal, round and reactive pupils present EOM: EOMs intact bilaterally Neck Neck: Yes normal visual inspection, Yes full ROM and Yes no lymphadenopathy Chest Chest palpation & inspection: normal inspection of the chest Resp Effort & Inspection: normal respiratory effort and able to speak in complete sentences GI Inspection: Yes normal to inspection Neuro General: patient oriented x3 and moves all extremities Cranial nerves: Yes Equal, round and reactive pupils present Cognition (Neuro): normal cognition Motor exam (neuro): 5/5 motor strength present throughout Sensory Exam: Normal double simultaneous stimulation for sensation Coordination: [id number] test normal Extrem General: Yes normal to inspection, Yes full ROM and Yes capillary refill normal Psych Appearance: grossly normal Mental Status: mental status grossly normal Affect: normal affect Attitude: cooperative Thought process: Normal thought process present Thought content: Normal thought content present Insight: Good insight present (Psych) Course Course Course Narrative: This is a rapid medical exam. Deferred additional HPI, ROS, PE to primary provider. 88 yo female with history of HTN, hx HTN urgency, COPD, GERD, osteoporosis, HLD, hx CVA, breast cancer, OA here with complaints of right hip pain (chronic), bilateral ankle pain/swelling x weeks which radiates to shins worsened at nighttime described as cramping. Patient reports she went in to [facility] 04/07 and had x-rays of her right hip. She is waiting for a follow-up appointment to discuss x-ray results and possible hip replacement. No falls or injuries. Difficulty sleeping due to pain. Taking Tylenol for pain at home. Slight swelling to ankles noted, no swelling to legs. Will obtain labs VSS Medical Decision Making Medical Decision Making [facility] Narrative: Patient is an 88 year old assigned female at with a history of HTN, GERD, and COPD presenting to the emergency department today with bilateral ankle swelling and bilateral anterior lower leg pain. Patient's physical exam was unremarkable. Patient's blood work was unremarkable. I explained my physical exam findings as well as all test results to the patient. I answered all questions asked by the patient. I stressed the importance of the patient taking her medication as prescribed. I stressed the importance of the patient following up with her primary care provider. I stressed the importance of the patient returning to the emergency department immediately if her symptoms were to worsen or if she were to develop any dizziness, shortness of breath, difficulty breathing, chest pain, blurry vision, loss of vision, nausea, vomiting, abdominal pain, fever, chills, back pain, or any other complaints. Patient verbalized agreement and understanding with this treatment plan and discharge. Differential Diagnosis Differential Diagnoses: The differential diagnosis associated with the presentation includes Ankle swelling Ankle pain Neuropathy Admission/Observation Consideration of admission/observation: Escalation of care including admission/observation considered Patient would have been admitted to the hospital had her work up had any findings where hospital admission was appropriate and her clinical presentation warranted hospital admission. Lab Data [facility] Lab Attestation statement: I reviewed the patient's lab results. My interpretation of these results are in the [facility] Rationale portion of this note. 04/26/23 11:58 04/26/23 11:58 Labs: Lab Results 04/26/23 Range/Units 11:58 WBC 5.3 (4.8-10.8) X10*3/uL RBC 3.68 L (4.20-5.50) X10*6/uL Hgb 11.3 L (12.0-16.0) g/dl Hct 34.7 L (37.0-47.0) % MCV 94.3 (80.0-98.0) fL MCH 30.7 (27.0-33.0) pg MCHC 32.6 (31.0-35.0) g/dl RDW 13.3 (11.0-16.0) % Plt Count 294 (160-400) X10*3/uL MPV 9.2 L (9.4-12.3) fL Immature Gran % (Auto) 0.2 (0.0-0.4) % Neut % (Auto) 71.5 (45-73) % Lymph % (Auto) 18.6 L (20-40) % Hunt % (Auto) 8.4 (2-11) % Eos % (Auto) 0.9 (0-4) % Baso % (Auto) 0.4 (0-2) % Lymph # (Auto) 1.0 L (1.2-4.9) X10*3/uL Hunt # (Auto) 0.5 (0.1-1.2) X10*3/uL Eos # (Auto) 0.1 (0.0-0.4) X10*3/uL Baso # (Auto) 0.0 (0.0-0.2) X10*3/uL Abs Immat Gran (auto) 0.01 (0.00-0.03) X10*3/uL Absolute Neuts (auto) 3.8 (2.0-8.3) x10*3/uL Absolute Nucleated RBC 0.000 (0.0-0.012) X10*3/uL Nucleated RBC % (auto) 0.0 (0.0-0.2) /100WBC Sodium 146 H (135-145) mmol/L Potassium 4.2 (3.3-5.1) mmol/L Chloride 111 H (96-108) mmol/L Carbon Dioxide 25 (22-29) mmol/L Anion Gap 14 (12-20) BUN 23 H (9-16) mg/dL Creatinine 0.77 (0.5-1.4) mg/dL Estim Creat Clear Calc 30.8 Estimated GFR > 60 Random Glucose 128 H (60-115) mg/dL Calcium 9.5 (8.4-10.2) mg/dL Magnesium 2.1 (1.6-2.6) mg/dL Total Bilirubin 0.6 (0.0-1.0) mg/dL Direct Bilirubin 0.2 (0.0-0.5) mg/dL AST 21 (5-31) U/L ALT 21 (0-31) U/L Alkaline Phosphatase 57 (39-117) U/L B-Natriuretic Peptide 75 (<100) pg/mL Total Protein 6.5 (6.5-8.0) g/dL Albumin 3.8 (3.5-5.0) g/dL Discharge Plan Discharge Clinical Impression: Acute leg pain Patient Disposition: Home, Self-Care Instructions: Leg Pain (ED) Additional Instructions: Follow up with your primary care provider, your orthopedic provider, and a pain specialist. Return to the emergency department immediately if your symptoms worsen or if you develop any dizziness, shortness of breath, difficulty breathing, chest pain, blurry vision, loss of vision, nausea, vomiting, abdominal pain, fever, chills, back pain, or any other complaints. Prescriptions: No Action losartan 100 mg tablet 100 mg PO DAILY 90 Days Qty: 90 3RF chlorthalidone 25 mg tablet 25 mg PO DAILY 90 Days Qty: 90 1RF ezetimibe 10 mg tablet 10 mg PO DAILY 90 Days Qty: 90 3RF tiotropium bromide 18 mcg capsule, w/inhalation device 1 cap inhalation DAILY 90 Days Qty: 90 3RF amlodipine 5 mg tablet 5 mg PO DAILY 90 Days Qty: 90 1RF rosuvastatin 10 mg tablet 10 mg PO DAILY 90 Days Qty: 90 1RF nitrofurantoin macrocrystal 100 mg capsule 100 mg PO BEDTIME 90 Days Qty: 90 3RF Rx Instructions: must administer with a meal/food Gemtesa 75 mg tablet 75 mg PO DAILY 90 Days Qty: 90 1RF lansoprazole 30 mg capsule,delayed release(DR/EC) 30 mg PO DAILY@0630 Qty: 90 1RF Spiriva Respimat 1.25 mcg/actuation mist 2 puff inhalation BEDTIME 30 Days Qty: 4 2RF Prolia 60 mg/mL syringe 60 mg subcut [id number] Rx Instructions: last dose may 2021 carvedilol 12.5 mg tablet 12.5 mg PO BID acetaminophen [Tylenol Arthritis Pain] 650 mg tablet extended release 1,300 mg PO Q6H 30 Days Qty: 240 1RF glucosamine sulfate 1,000 mg capsule 1,000 mg PO DAILY Rx Instructions: administer with meals multivitamin Tablet 1 tab PO DAILY aspirin [Adult Aspirin Regimen] 81 mg tablet,delayed release (DR/EC) 81 mg PO DAILY magnesium 250 mg tablet 250 mg PO DAILY tolterodine 4 mg capsule,extended release 24hr 4 mg PO DAILY carvedilol 12.5 mg tablet 12.5 mg PO BID 90 Days Qty: 180 3RF Rx Instructions: must administer with a meal/food Referrals: Adolfo Jean MD [Physician] - (Call to establish and follow up with a pain specialist. ) Shirin Magana MD [Primary Care Provider] - Interventions: ED Discharge Assessment Last Done: 04/26/23 13:57 Discharge Date/Time: 04/26/23 13:58 Print Language: Ecuadorean
[2023-04-26 11:44] VITALS: BP 162/70; PULSE 76; RESP 16; TEMP 36.4; O2SAT 98; BMI 21.9
== END 2023-04-26 13:58 | disposition home or self-care (01) ==
PROVIDERS: Emergency Provider Student in an Organized Health Care Education/Training Program; PCP Internal Medicine
DX: M79.605 Pain in left leg (principal); M79.604 Pain in right leg; I10 Essential (primary) hypertension; E78.5 Hyperlipidemia, unspecified; J44.9 Chronic obstructive pulmonary disease, unspecified; Z87.891 Personal history of nicotine dependence; Z86.73 Personal history of transient ischemic attack (TIA), and cerebral infarction without residual deficits; Z79.02 Long term (current) use of antithrombotics/antiplatelets; Z79.899 Other long term (current) drug therapy; Z79.82 Long term (current) use of aspirin
CPT/HCPCS: 36415; 80048; 80076; 83735; 83880; 85025; 99283

== ENCOUNTER 2023-05-23 14:49 | Outpatient (REF) | payer MEDICARE, OTHER, SELFPAY ==
--- NOTE | ~2023-05-23 | CT_ITS ---
EXAMINATION: CT HEAD WITHOUT CONTRAST CLINICAL INFORMATION: An 88-year-old with personal history of TIA; history of previous lacunar infarct, with facial paresthesias and elevated blood pressure. Evaluate for CVA. COMPARISON: 10/18/2021 CT angiogram. TECHNIQUE: Contiguous axial imaging was performed from the skull base to vertex without intravenous administration of contrast. This CT examination was performed using dose optimization techniques as appropriate, variously including the following: *Automated exposure control *Adjustment of mA and/or kV according to patient size (this includes techniques or standardized protocols for targeted exams where dose is matched to indication/reason for exam; i.e. extremities or head) *Use of iterative reconstruction technique DLP: 637 mGy-cm FINDINGS: BRAIN VOLUME: Moderate generalized diffuse brain parenchymal volume loss is noted similar to prior CT. STRUCTURAL: No malformations. BRAIN AND MENINGES: Redemonstrated are patchy and focally confluent regions of hypodensity in the white matter of both cerebral hemispheres, consistent with chronic ischemic microangiopathy, similar to the previous exam. There are remote lacunar infarcts in the left posterior putamen and retrolenticular portion of the left internal capsule, similar to prior study. There is a remote lacunar infarct in the right external capsule, unchanged in appearance. There are probable chronic ischemic changes in the capsular structures bilaterally, particularly the external capsules [id number], unchanged in appearance. Another tiny remote lacunar infarct is seen in the right external capsule more anteriorly and there is a possible tiny lacunar infarct in the ventral medial left thalamus, probably unchanged. Tiny age-indeterminate lacunar infarct right thalamus is noted on current study. No acute territorial infarct, hemorrhage, extra-axial fluid collection, space-occupying process, or mass effect. Atheromatous calcifications of the carotid siphons and left vertebral artery are noted with tortuosity of the left vertebral artery indenting the ventral medulla, unchanged. VENTRICLES AND SUBARACHNOID SPACES: The ventricular system and subarachnoid spaces are approximately proportional to the degree of parenchymal volume loss, without hydrocephalus. ORBITAL STRUCTURES: Bilateral lens replacements are noted with otherwise grossly unremarkable appearance to the orbits. OSSEOUS STRUCTURES, SINUSES/MASTOIDS, EXTRACRANIAL SOFT TISSUES: Bony structures appear grossly intact and the visualized airspaces are remarkable for some retention cysts in the left maxillary sinus, similar to previous CT. The visualized extracranial soft tissue structures are grossly within normal limits. CT/CT head/brain wo IV con IMPRESSION: 1. No acute intracranial process. No evidence for acute territorial infarct, hemorrhage, extra-axial fluid collection, space-occupying process, mass effect or hydrocephalus. 2. Chronic ischemic microangiopathy in the white matter of both cerebral hemispheres and multiple remote lacunar infarcts in the capsular structures, basal ganglia, and thalami as described above, similar to the previous exam. Possible tiny age-indeterminate lacunar infarct in the right thalamus, which may be a new finding. 3. Moderate generalized diffuse brain parenchymal volume loss similar to the previous exam.
== END 2023-05-23 14:50 | disposition home or self-care (01) ==
LOC: HO.CT 14:49
PROVIDERS: PCP Internal Medicine; Visit Provider Physician Assistant
DX: R20.2 Paresthesia of skin (principal); Z86.73 Personal history of transient ischemic attack (TIA), and cerebral infarction without residual deficits
CPT/HCPCS: 70450

== ENCOUNTER 2023-05-24 08:17 | Outpatient (REF) | payer MEDICARE, OTHER, SELFPAY ==
[2023-05-24 12:11] LABS: Alanine Aminotransferase 18 U/L (0-31); Albumin Level 3.8 g/dL (3.5-5.0); Alkaline Phosphatase 56 U/L (39-117); Anion Gap 13 (12-20); Aspartate Amino Transferase 18 U/L (5-31); Bilirubin Total 0.4 mg/dL (0.0-1.0); Blood Urea Nitrogen 27 mg/dL (9-16); Calcium 9.6 mg/dL (8.4-10.2); Carbon Dioxide 26 mmol/L (22-29); Chloride 110 mmol/L (96-108); Cholesterol 148 mg/dL (<200); Estimated Glomerular Filt Rate > 60; Glucose Fasting 89 mg/dL (60-99); HDL Cholesterol 73 mg/dL (>40); LDL Cholesterol Calculated 62 mg/dL (<100); Potassium 3.9 mmol/L (3.3-5.1); Sodium 145 mmol/L (135-145); Total Protein 6.5 g/dL (6.5-8.0); Triglycerides 69 mg/dL (<150)
[2023-05-24 12:29] LABS: Vitamin D 25-OH Total 46.1 ng/mL (>30)
== END 2023-05-24 08:18 | disposition home or self-care (01) ==
LOC: HO.HMGCLDS 08:17
PROVIDERS: PCP Internal Medicine; Visit Provider Internal Medicine
DX: E78.5 Hyperlipidemia, unspecified (principal); E55.9 Vitamin D deficiency, unspecified; I10 Essential (primary) hypertension
CPT/HCPCS: 36415; 80053; 80061; 82306

== ENCOUNTER 2023-05-27 10:52 | Outpatient (AMB) | payer MEDICARE, OTHER, SELFPAY ==
[2023-05-27 10:54] VITALS: BP 137/50; PULSE 58; BMI 22.5
--- NOTE | 2023-05-27 10:54 | A.OFFVIS_ITS ---
Intake Vital Signs 05/27/23 10:54 Height 4 ft 9 in Weight 104 lb 0.931 oz BMI 22.5 BP 137/50 L Blood Pressure Location Lt brachial Position Sitting Pulse 58 Pulse Source Pulse Oximeter Intake Visit Reasons: f/u Osteoporosis with Prolia inj-confirmed Intake Note: Patient presents today for Osteoporosis follow up, last seen by Dr. Talbot on 11/14/2022. Vending Service Technician Required: No Accompanied by: Self / Same As Patient Allergies cephalexin [Keflex] Allergy (Intermediate, Verified 05/27/23 11:02) Unknown tetracycline [Tetracycline] Allergy (Intermediate, Verified 05/27/23 11:02) TONGUE SWOLLEN HPI HPI Comments History of Present Illness Details 88 YO Female with PMHx Osteoporosis is seen in F/U for the same. She was previously followed by Dr. Che and then Dr. Khan. Patient last saw Dr. Talbot on 11/14/2022 She has a longstanding history of hypercalcemia. It is unclear if a diagnosis of hyperparathyroidism was ever established. She does remain on HCTZ low dose currently. She has been receiving Prolia injections intermittently since 2015. Her most recent Prolia was 05/23/2022. She tolerated this well. First diagnosed with Osteoporosis in 2007. Received treatment in the past with Fosamax for approximately 5 years. She tolerated this well, but it was stopped and she was given a drug holiday. She then began Prolia with Dr. Che, and had her first injection 11/22/2015. Dosing appears to have been intermittent since then, and it is unclear how many doses she has received. Her last dose was 04/25/2021. Most recent DXA reveals improvements of 4% in the spine, 12% in the hip. No history of pathologic fracture or ONJ. Has 1 servings of dietary calcium per day in the form of yogurt. She does not take a Calcium or Vitamin D supplement. Denies ever using PPI, anticoagulant, antiepileptic or glucocorticoid medication. Does no scheduled exercise. 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 Menses were regular. . Menopause was age 50. She did not use HRT. Denies history of Kidney stones: Family history of Osteoporosis in her Mother. UTD on dental cleanings and sees dentist every 6 months. She had a root canal approximately 3 months ago. DXA: 07/10/21 FINDINGS: AP SPINE L1-L4: Current: BMD 0.822 g/cm2, Z-score -0.6, T-score -3.0, osteoporosis, 3.8% increase from previous, 7.2% increa se from baseline (<5% change is not significant). Prior: BMD 0.792 g/cm2. Baseline: BMD 0.767 g/cm2. LEFT FEMUR, NECK: Current: BMD 0.780 g/cm2, Z-score 0.9, T-score -1.9, osteopenia. Prior: BMD 0.713 g/cm2. Baseline: BMD 0.756 g/cm2. LEFT FEMUR, TOTAL: Current: BMD 0.813 g/cm2, Z-score 1.1, T-score -1.5, osteopenia, 12.0% increase from previous, 3.7% increase from baseline (<5% change is not significant). Prior: BMD 0.726 g/cm2. Baseline: BMD 0.784 g/cm2. LEFT FOREARM RADIUS 33%: Current: BMD 0.691 g/cm2, Z-score 1.2, T-score -2.1, osteopenia, 1.6% increase from baseline (<5% change is not significant). Baseline: BMD 0.680 g/cm2. Labs: Laboratory Tests 11/06/22 11/06/22 08:38 08:38 Creatinine 0.77 Estimated GFR > 60 25-OH Vitamin D To david 41.2 PTH Intact 55 Calcium (PTH Intac t) 9.4 PFSH Medical History Acute leg pain Facial paresthesia Swelling of lower extremity Right leg swelling Hospital discharge follow-up Hypertensive urgency Constipation Frequent UTI Edema of left lower leg Leg cramping Primary hypertension Uncontrolled hypertension Left hip pain Left-sided weakness Left sided sciatica Adult general medical exam Screening for breast cancer Osteoarthritis of right hip Hospital discharge follow-up Vitamin D deficiency Hypercalcemia Multiple lacunar infarcts Hearing loss Urge urinary incontinence GERD (gastroesophageal reflux disease) COPD (chronic obstructive pulmonary disease) Hypertension Dyslipidemia Hypercalcemia Osteoporosis History of ductal carcinoma in situ (DCIS) of breast Surgical History History of colonoscopy History of lumpectomy of right breast History of pubovaginal sling H/O right inguinal hernia repair Family History Father Heart failure CVD (cardiovascular disease) Mother Breast cancer Social History Household Members: None Housing: House Do you presently have visiting nurse or other home services: No Alcohol intake: current Alcohol intake frequency: holidays/special occasions only Alcohol type: wine Patient Tobacco Use Status: Former Tobacco user Quit Date: 02/04/91 Tobacco use type: Cigarette e-Cigarette/Vaping Use: Never Used Second Hand Smoke Exposure: No Advance Directives Date on File: 10/19/21 service: No Current occupational status: retired Cognitive needs: Yes (CANE) Hearing needs: Yes (hearing aide) Vision needs: No (glaases) Physical Exam Vital Signs: Last Vital Signs Pulse 58 05/27/23 10:54 BP 137/50 L 05/27/23 10:54 BMI result Body Mass Index 22.5 Const Other: Thyroid gland is normal size weighs about 15 g . No thyroid nodules palpated. there is no tenderness on palpation of the spine Assessment & Plan Assessment & Plan (1) Osteoporosis: Code(s): M81.0 - Age-related osteoporosis without current pathological fracture Qualifiers: Osteoporosis type: age-related Presence of current pathological fracture: without current pathological fracture Qualified Code(s): M81.0 - Age-related osteoporosis without current pathological fracture Plan: This is a 88-year-old white female with a history of osteoporosis with secondary workup revealing? Primary hyperparathyroidism which is now resolved. She was treated with a bisphosphonate namely alendronate for 5 years and then transition to Prolia. Plan is to give a dose of Prolia today . Will recheck a DEXA bone density of the hip, spine and distal forearm. Depending upon repeat bone density may consider transitioning back to oral alendronate we are giving a dose of i ntravenous bisphosphonate like Reclast Orders: Orders XR DEXA axial skeleton 2 Months M81.0 - Age-related osteoporosis without current pathological fracture Coding Level of Care Code Est Pt Level 3 (29018) Diagnoses Age-related osteoporosis without current pathological fracture M81.0 Osteoporosis type: age-related Presence of current pathological fracture: without current pathological fracture
--- NOTE | 2023-05-27 11:33 | AM.OFFVISNUR ---
Intake Vital Signs 05/27/23 10:54 Height 4 ft 9 in Weight 104 lb 0.931 oz BMI 22.5 BP 137/50 L Blood Pressure Location Lt brachial Position Sitting Pulse 58 Pulse Source Pulse Oximeter Intake Visit Reasons: f/u Osteoporosis with Prolia inj-confirmed Allergies cephalexin [Keflex] Allergy (Intermediate, Verified 05/27/23 11:02) Unknown tetracycline [Tetracycline] Allergy (Intermediate, Verified 05/27/23 11:02) TONGUE SWOLLEN Office Meds Prolia 60 mg/mL subcutaneous syringe Performing Provider: Lewis Corbett MD Performing Location: [facility] [place] Endocrinology Administered by: Liliana Verde LPN on 05/27/23 11:33 Dose Route Admin Location Dispensed Lot Number Expiration Date NDC Javascript Web Developer 60 mg subcut right upper arm 1 mL [id number] 06/18/25 [employer] Coding Diagnoses Age-related osteoporosis without current pathological fracture M81.0 Osteoporosis type: age-related Presence of current pathological fracture: without current pathological fracture Assessment & Plan Assessment & Plan (1) Osteoporosis: Code(s): M81.0 - Age-related osteoporosis without current pathological fracture Category: Medical Qualifiers: Osteoporosis type: age-related Presence of current pathological fracture: without current pathological fracture Qualified Code(s): M81.0 - Age-related osteoporosis without current pathological fracture Orders: Orders XR DEXA axial skeleton 2 Months M81.0 - Age-related osteoporosis without current pathological fracture AMB Denosumab Injection Patient Supplied Today M81.0 - Age-related osteoporosis without current pathological fracture
== END 2023-05-27 11:32 | disposition home or self-care (01) ==
PROVIDERS: PCP Internal Medicine; Visit Provider Internal Medicine Endocrinology, Diabetes & Metabolism
DX: M81.0 Age-related osteoporosis without current pathological fracture (principal)
CPT/HCPCS: 99213

== ENCOUNTER → 2023-05-27 10:52 | Outpatient (BNVA) | payer MEDICARE, OTHER, SELFPAY | PROVIDERS: PCP Internal Medicine; Visit Provider Internal Medicine Endocrinology, Diabetes & Metabolism | DX: M81.0 Age-related osteoporosis without current pathological fracture (principal) | CPT/HCPCS: 96372; 99212; J0897 ==

== ENCOUNTER 2023-06-04 11:06 | Outpatient (AMB) | payer MEDICARE, OTHER, SELFPAY ==
--- NOTE | 2023-06-04 11:08 | A.OFFPC_ITS ---
Vital Signs 06/04/23 11:09 06/04/23 14:43 Height 4 ft 9 in Weight 100 lb BMI 21.6 BP 116/56 L 120/60 Blood Pressure Location Lt brachial Lt brachial Position Sitting Sitting Intake Visit Reasons: bp Intake Note: Patient here for a follow up BP Campaign Specialist Required: No Accompanied by: Self / Same As Patient Allergies cephalexin [Keflex] Allergy (Intermediate, Verified 06/04/23 11:27) Unknown tetracycline [Tetracycline] Allergy (Intermediate, Verified 06/04/23 11:27) TONGUE SWOLLEN Medication List - Last Reconciled 06/04/23 by Shirin Duron MD acetaminophen ER (Tylenol Arthritis Pain) 1,300 mg (2 x 650 mg) PO Q6H 30 days amlodipine 5 mg PO DAILY 90 days aspirin (Adult Aspirin Regimen) 81 mg PO DAILY carvedilol 12.5 mg PO BID 90 days chlorthalidone 25 mg PO DAILY 90 days denosumab (Prolia) 60 mg subcut [id number] ezetimibe 10 mg PO DAILY 90 days lansoprazole 30 mg PO DAILY@0630 losartan 100 mg PO DAILY 90 days magnesium 250 mg PO DAILY nitrofurantoin macrocrystal 100 mg PO BEDTIME 90 days rosuvastatin 10 mg PO DAILY 90 days tiotropium bromide 1 cap inhalation DAILY 90 days tiotropium bromide 1.25 mcg/actuation (Spiriva Respimat) 2 puffs inhalation BEDTIME 30 days tolterodine ER 4 mg PO DAILY vibegron (Gemtesa) 75 mg PO DAILY 90 days Tobacco use date assessed: 06/04/23 Fall risk assessment: No Falls in past year Last assessed Fall Risk: 06/04/23 Dental Screening Dental Screen Date: 06/04/23 Did you have a dental visit in the last 12 months?: Yes Did you have a dental problem in the last 6 months where you did not have access to dental care?: No Was dental information given to patient?: Patient has dentist HPI HPI Comments History of Present Illness Details This is an 88-year-old female with hypertension, dyslipidemia, COPD, GERD, multiple lacunar infarcts and osteoporosis that comes today complaining of bilateral knee pain and leg pain has been present for few weeks. She also has left ankle swelling that is sometimes painful. I will order x-rays. Blood pressure stable. Cholesterol well controlled with medications. Has not had recent hospitalization for COPD and has been control with Spiriva. GERD stable with PPIs. On aspirin for prophylaxis of more lacunar infarcts. Able to walk with cane as needed. Last bone density was 2021 showing osteoporosis and is currently on Prolia follow by Endocrinology. No chest pain or shortness of breath. [facility] Medical History (Updated 06/04/23 @ 12:08 by Shirin Duron MD) Acute leg pain Facial paresthesia Swelling of lower extremity Right leg swelling Hospital discharge follow-up Hypertensive urgency Constipation Frequent UTI Edema of left lower leg Leg cramping Primary hypertension Uncontrolled hypertension Left hip pain Left-sided weakness Left sided sciatica Adult general medical exam Screening for breast cancer Osteoarthritis of right hip Hospital discharge follow-up Vitamin D deficiency Hypercalcemia Multiple lacunar infarcts Hearing loss Urge urinary incontinence GERD (gastroesophageal reflux disease) COPD (chronic obstructive pulmonary disease) Hypertension Dyslipidemia Hypercalcemia Osteoporosis History of ductal carcinoma in situ (DCIS) of breast Surgical History History of colonoscopy History of lumpectomy of right breast History of pubovaginal sling H/O right inguinal hernia repair Family History Father Heart failure CVD (cardiovascular disease) Mother Breast cancer Social History Household Members: None Housing: House Do you presently have visiting nurse or other home services: No Alcohol intake: former Patient Tobacco Use Status: Former Tobacco user Quit Date: 02/04/91 Tobacco use type: Cigarette e-Cigarette/Vaping Use: Never Used Second Hand Smoke Exposure: No Advance Directives Date on File: 10/19/21 service: No Current occupational status: retired Cognitive needs: Yes (CANE) Hearing needs: Yes (hearing aide) Vision needs: No (glaases) Questionnaire PHQ-9 Over the last 2 weeks, how often have you been bothered by any of the following problems? 1. Little interest or pleasure in doing things: not at all 2. Feeling down, depressed, or hopeless: several days 3. Trouble falling or staying asleep, or sleeping too much: several days 4. Feeling tired or having little energy: not at all 5. Poor appetite or overeating: not at all 6. Feeling bad about yourself - or that you are a failure or have let yourself or your family down: not at all 7. Trouble concentrating on things, such as reading the newspaper or watching television: not at all 8. Moving or speaking so slowly that other people could have noticed. Or the opposite - being so fidgety or restless that you have been moving around a lot more than usual: not at all 9. Thoughts that you would be better off or of hurting yourself in some way: not at all Total score: 2 Depression Screening Interpretation: Negative Depression Screening Done: Yes 13792 - PHQ-9 Billing: Yes Source: Developed by Drs. Lewis Lopez, Dixie Sharma, Clay Stevenson and colleagues, with an educational chucky from [employer]. Thrive Questionnaire Date Thrive assessed: 06/04/23 I am a: Patient What is your living situation today?: I have a steady place to live Within the past 12 months, did the food you bought not last and you didn't have the money to get more?: Never true Within the past 12 months, did you worry whether your food would run out before you got money to buy more?: Never true Do you have trouble paying for medicines?: No Do you have trouble getting transportation to medical appointments?: No Do you have trouble paying your heating and electricity bill?: No Do you have trouble taking care of your child, family member or friend?: No Do you have trouble with day-to-day activities such as bathing, preparing meals, shopping, managing finances, etc.?: Yes Are you currently unemployed and looking for a job?: No Are you interested in more education?: No Please select the resources that you would like help with: None Currently or been in a relationship where the following occur: no concerns reported THRIVE Score: 0 AUDIT C Alcohol Use Questionnaire (AUDIT-C) 1. How often do you have a drink containing alcohol?: Never Total Score: 0 LEMUEL-7 AMB Questionnaire LEMUEL-7 Date LEMUEL - 7 assessed: 06/04/23 Feeling nervous, anxious, or on edge: 0 = Not at all Not being able to stop or control worryin = Not at all Worrying too much about different things: 0 = Not at all Trouble relaxin = Not at all Being so restless that it is hard to sit still: 0 = Not at all Becoming easily annoyed or irritable: 1 = Several days Feeling afraid as if something awful might happen: 0 = Not at all Total LEMUEL-7 score (0-4 normal; 5-9 mild; 10-14 moderate; 15-21 severe): 1 Source: Developed by Drs. Lewis Lopez, Dixie Sharma, Clay Stevenson and colleagues, with an educational chucky from [employer]. LEMUEL-7 Assessment Billing LEMUEL-7 Assessment Tool: LEMUEL-7 Assessment 01499 Review of Systems Const All systems reviewed & are unremarkable except as noted in HPI and below Eyes Reports no additional complaints, Denies change in vision and Denies other visual disturbances Card Denies chest pain at rest, Denies chest pain with activity, Denies edema, Denies irregular heart rhythm, Denies claudication, Denies dyspnea, Denies dyspnea on exertion, Denies orthopnea, Denies paroxysmal nocturnal dyspnea and Denies slow heart rate Resp Denies cough, Denies dyspnea and Denies dyspnea on exertion GI Denies abdominal pain, Denies change in bowel habits, Denies excessive flatus, Denies nausea and Denies vomiting Denies urinary incontinence, Denies urinary hesitancy and Denies urinary urgency Musc Denies abnormal gait, Reports back pain, Denies atrophy, Denies deformity, Reports arthralgias and Denies limited range of motion Skin/Breast Denies bleeding lesions, Denies changing lesions and Denies rash Neuro Denies abnormal gait, Denies behavioral changes and Denies lack of coordination Psych Denies behavioral changes Physical exam (Primary Care) Vital Signs: Last Vital Signs BP 116/56 L 06/04/23 11:09 BMI result Body Mass Index 21.6 Tobacco/Smoking Status: Tobacco use Status Tobacco use date assessed 06/04/23 06/04/23 11:20 Patient Tobacco Use Status Former Tobacco user 06/04/23 11:20 Tobacco use type Cigarette 06/04/23 11:20 e-Cigarette/Vaping Use Never Used 06/04/23 11:20 PHQ-9: PHQ-9 Score PHQ-9: Total score 2 06/04/23 11:32 Depression Screening Interpretation: Negative Thrive Assessment: Date of Thrive Assessment Date Thrive assessed 06/04/23 06/04/23 11:20 Currently or been in a relationship where the following occur: no concerns reported Const Limitations: ambulation with cane Eyes General: appearance normal, both eyes and all related structures Eyelids: Yes eyelids normal Conjunctivae: conjunctivae normal Neck Neck: Yes normal visual inspection and Yes supple Resp Effort & Inspection: normal respiratory effort Auscultation: clear to auscultation bilaterally Cardio Jugular venous distension: no JVD Rate: regular rate Rhythm: regular rhythm Heart sounds: S1 normal heart sound present and S2 normal heart sound present Extrem General: Yes full ROM Assessment and Plan Assessment & Plan (1) Multiple lacunar infarcts: Code(s): I63.81 - Other cerebral infarction due to occlusion or stenosis of small artery Plan: Continue aspirin for secondary prophylaxis. (2) COPD (chronic obstructive pulmonary disease): Code(s): J44.9 - Chronic obstructive pulmonary disease, unspecified Qualifiers: COPD type: unspecified COPD Qualified Code(s): J44.9 - Chronic obstructive pulmonary disease, unspecified Plan: Continue Spiriva. (3) Hypertension: Code(s): I10 - Essential (primary) hypertension Qualifiers: Hypertension type: essential hypertension Qualified Code(s): I10 - Essential (primary) hypertension Plan: Continue amlodipine. Blood pressure goal is equal or less than 130/80. (4) Dyslipidemia: Code(s): E78.5 - Hyperlipidemia, unspecified Plan: Continue statins. (5) Osteoporosis: Code(s): M81.0 - Age-related osteoporosis without current pathological fracture Qualifiers: Osteoporosis type: age-related Presence of current pathological fracture: without current pathological fracture Qualified Code(s): M81.0 - Age- related osteoporosis without current pathological fracture Plan: Continue Prolia every 6 months. Follow-up with endocrinology. (6) GERD (gastroesophageal reflux disease): Code(s): K21.9 - Gastro-esophageal reflux disease without esophagitis Qualifiers: Esophagitis presence: esophagitis presence not specified Qualified Code(s): K21.9 - Gastro-esophageal reflux disease without esophagitis Plan: Continue PPIs. Orders: Orders XR knee RT 2V Today M25.561 - Pain in right knee XR ankle RT 2V Today M25.571 - Pain in right ankle and joints of right foot XR tibia fibula LT 2V Today M79.605 - Pain in left leg XR ankle LT 2V Today M25.572 - Pain in left ankle and joints of left foot XR knee LT 2V Today M25.562 - Pain in left knee XR tibia fibula RT 2V Today M79.604 - Pain in right leg Coding Level of Care Code Est Pt Level 4 (33706) Diagnoses Multiple lacunar infarcts I63.81 Chronic obstructive pulmonary disease, unspecified COPD type J44.9 COPD type: unspecified COPD Essential hypertension I10 Hypertension type: essential hypertension Dyslipidemia E78.5 Age-related osteoporosis without current pathological fracture M81.0 Osteoporosis type: age-related Presence of current pathological fracture: without current pathological fracture Gastroesophageal reflux disease, unspecified whether esophagitis present K21.9 Esophagitis presence: esophagitis presence not specified Additional Codes LEMUEL-7 Assessment Billing - LEMUEL-7 Assessment Tool: LEMUEL-7 Assessment 47391 ([id number]) Time Spent (min) 24
[2023-06-04 11:09] VITALS: BP 116/56; BMI 21.6
[2023-06-04 14:43] VITALS: BP 120/60
== END 2023-06-04 11:45 | disposition home or self-care (01) ==
PROVIDERS: PCP Internal Medicine; Visit Provider Internal Medicine
DX: I63.81 Other cerebral infarction due to occlusion or stenosis of small artery (principal); J44.9 Chronic obstructive pulmonary disease, unspecified; I10 Essential (primary) hypertension; E78.5 Hyperlipidemia, unspecified; M81.0 Age-related osteoporosis without current pathological fracture; K21.9 Gastro-esophageal reflux disease without esophagitis
CPT/HCPCS: 99214

== ENCOUNTER 2023-06-04 12:01 | Outpatient (REF) | payer MEDICARE, OTHER, SELFPAY ==
--- NOTE | ~2023-06-04 | XR_ITS ---
EXAMINATION: XR KNEE, LEFT XR ANKLE, LEFT CLINICAL INFORMATION: Pain in the left ankle and joints of the left foot. Left knee pain. COMPARISON: None TECHNIQUE: AP and lateral views of the left knee. 3 views of the left ankle. FINDINGS: Left knee: Mild patellofemoral compartment osteoarthritis with subtle cortical irregularity and subchondral cystic change at the patella. Medial and lateral compartments appear well preserved. No fracture or malalignment. Enthesopathic spurring is present at the quadriceps tendon insertion on the patella. No joint effusion. Calcific atherosclerosis in the popliteal and runoff arteries. Left ankle: No fracture or malalignment. Ankle mortise is symmetric. Bone mineralization is normal. Calcific atherosclerosis is present in the ankle. Soft tissues are mildly swollen. XR/XR knee LT 2V IMPRESSION: 1. Mild patellofemoral compartment osteoarthritis in the left knee. 2. Mild soft tissue swelling at the left ankle. No acute osseous findings.
--- NOTE | ~2023-06-04 | XR_ITS ---
EXAMINATION: XR KNEE, LEFT XR ANKLE, LEFT CLINICAL INFORMATION: Pain in the left ankle and joints of the left foot. Left knee pain. COMPARISON: None TECHNIQUE: AP and lateral views of the left knee. 3 views of the left ankle. FINDINGS: Left knee: Mild patellofemoral compartment osteoarthritis with subtle cortical irregularity and subchondral cystic change at the patella. Medial and lateral compartments appear well preserved. No fracture or malalignment. Enthesopathic spurring is present at the quadriceps tendon insertion on the patella. No joint effusion. Calcific atherosclerosis in the popliteal and runoff arteries. Left ankle: No fracture or malalignment. Ankle mortise is symmetric. Bone mineralization is normal. Calcific atherosclerosis is present in the ankle. Soft tissues are mildly swollen. XR/XR ankle LT 2V IMPRESSION: 1. Mild patellofemoral compartment osteoarthritis in the left knee. 2. Mild soft tissue swelling at the left ankle. No acute osseous findings.
== END 2023-06-04 12:02 | disposition home or self-care (01) ==
LOC: HO.XRAY 12:01
PROVIDERS: Visit Provider Internal Medicine
DX: M25.562 Pain in left knee (principal); M25.572 Pain in left ankle and joints of left foot
CPT/HCPCS: 73560; 73600

== ENCOUNTER 2023-06-13 05:20 | Emergency (ER) | payer MEDICARE, OTHER, SELFPAY ==
--- NOTE | ~2023-06-13 | CT_ITS ---
EXAMINATION: CT HEAD WITHOUT CONTRAST CT CERVICAL SPINE WITHOUT CONTRAST CLINICAL INFORMATION: Fall. Pain. COMPARISON: 05/23/2023. TECHNIQUE: Contiguous axial imaging was performed through the head and cervical spine without intravenous administration of contrast. Sagittal and coronal reformatted images also obtained. This CT examination was performed using dose optimization techniques as appropriate, variously including the following: *Automated exposure control *Adjustment of mA and/or kV according to patient size (this includes techniques or standardized protocols for targeted exams where dose is matched to indication/reason for exam; i.e. extremities or head) *Use of iterative reconstruction technique DLP: 821 mGy-cm FINDINGS: Motion slightly limits evaluation. There is cerebral volume loss with prominence of the lateral and the third ventricles. The cortical sulci are widened appropriately. The fourth ventricle and basal cisterns are normally outlined. There is moderate bilateral periventricular and central white matter diminished attenuation. Old bilateral basal ganglia lacunar infarcts are noted. There is no acute territorial defect, hemorrhage or midline shift. The extra-axial spaces are unremarkable. Calvarium: Intact. Maxillofacial sinuses and mastoids: Clear as visualized. Cervical spine: There is grade 1 anterolisthesis C7 over T1. The alignment is otherwise normal. There is moderate diffuse cervical disc degenerative change with loss of disc space, endplate change and posterior osteophytes associated with moderate diffuse facet osteoarthritic hypertrophic change with multilevel minimal spinal canal and multilevel [id number] neuroforaminal narrowing. The bony structures are osteopenic. No acute fractures seen. The soft tissues are unremarkable. There is upper lung field emphysematous change. CT/CT head/brain wo IV con IMPRESSION: 1. No acute intracranial process seen. 2. Age-related cerebral volume loss with chronic small vessel ischemic changes. 3. No acute fracture or dislocation in cervical spine. There is grade 1 anterolisthesis C7 over T1. There is diffuse cervical spondylosis with multilevel minimal spinal canal and multilevel noni-[id number]-[id number] neuroforaminal narrowing.
--- NOTE | ~2023-06-13 | US_ITS ---
EXAMINATION: US VENOUS ULTRASOUND WITH DOPPLER LOWER EXTREMITY, BILATERAL CLINICAL INFORMATION: Bilateral lower extremity swelling. COMPARISON: 09/03/2022 TECHNIQUE: Ultrasound of the deep veins is performed from the hip to the calf with compression sonography and color and pulse Doppler assessment. Spectral analysis with color-flow imaging is performed. FINDINGS: RIGHT: There is normal venous compression and respiratory variation and augmented flow. The visualized common femoral vein, femoral vein, profunda femoral vein shows no evidence of deep venous thrombosis. Patient was unable to continue/complete the exam due to pain. LEFT: There is normal venous compression and respiratory variation and augmented flow. The visualized common femoral vein, femoral vein, profunda femoral vein, popliteal vein, and the trifurcation region shows no evidence of deep venous thrombosis. If the patient's symptoms persist, followup ultrasound in 5 days 7 days might be of value to exclude proximal propagation from a non-visualized calf vein. US/US venous duplex LE BI IMPRESSION: No DVT demonstrated in the left lower extremity. Incomplete evaluation of the right lower extremity with no DVT demonstrated from the common femoral vein through the femoral vein.
--- NOTE | ~2023-06-13 | CT_ITS ---
EXAMINATION: CT HEAD WITHOUT CONTRAST CT CERVICAL SPINE WITHOUT CONTRAST CLINICAL INFORMATION: Fall. Pain. COMPARISON: 05/23/2023. TECHNIQUE: Contiguous axial imaging was performed through the head and cervical spine without intravenous administration of contrast. Sagittal and coronal reformatted images also obtained. This CT examination was performed using dose optimization techniques as appropriate, variously including the following: *Automated exposure control *Adjustment of mA and/or kV according to patient size (this includes techniques or standardized protocols for targeted exams where dose is matched to indication/reason for exam; i.e. extremities or head) *Use of iterative reconstruction technique DLP: 821 mGy-cm FINDINGS: Motion slightly limits evaluation. There is cerebral volume loss with prominence of the lateral and the third ventricles. The cortical sulci are widened appropriately. The fourth ventricle and basal cisterns are normally outlined. There is moderate bilateral periventricular and central white matter diminished attenuation. Old bilateral basal ganglia lacunar infarcts are noted. There is no acute territorial defect, hemorrhage or midline shift. The extra-axial spaces are unremarkable. Calvarium: Intact. Maxillofacial sinuses and mastoids: Clear as visualized. Cervical spine: There is grade 1 anterolisthesis C7 over T1. The alignment is otherwise normal. There is moderate diffuse cervical disc degenerative change with loss of disc space, endplate change and posterior osteophytes associated with moderate diffuse facet osteoarthritic hypertrophic change with multilevel minimal spinal canal and multilevel [id number] neuroforaminal narrowing. The bony structures are osteopenic. No acute fractures seen. The soft tissues are unremarkable. There is upper lung field emphysematous change. CT/CT cervical spine wo IV con IMPRESSION: 1. No acute intracranial process seen. 2. Age-related cerebral volume loss with chronic small vessel ischemic changes. 3. No acute fracture or dislocation in cervical spine. There is grade 1 anterolisthesis C7 over T1. There is diffuse cervical spondylosis with multilevel minimal spinal canal and multilevel btje-[id number] neuroforaminal narrowing.
--- NOTE | ~2023-06-13 | CT_ITS ---
EXAMINATION: CT HIP WITHOUT CONTRAST, RIGHT CLINICAL INFORMATION: Unable to move/pain right hip. COMPARISON: Right hip x-ray performed earlier today at 7:08 AM. TECHNIQUE: Multidetector volumetric imaging was obtained through the right hip without contrast material. Multiplanar reformatted images were submitted in coronal and sagittal planes. This CT examination was performed using dose optimization techniques as appropriate, variously including the following: *Automated exposure control *Adjustment of mA and/or kV according to patient size (this includes techniques or standardized protocols for targeted exams where dose is matched to indication/reason for exam; i.e. extremities or head) *Use of iterative reconstruction technique DLP: 139 mGy-cm FINDINGS: There is severe loss of right hip joint space with subchondral cystic changes. There is no visible acute fracture, dislocation or subluxation seen. Visualized right pelvis, pubic symphysis appears intact. No gross soft tissue hematoma or mass seen. Suspect mild joint effusion. There is a small metallic staple along the right inferior pubic bone. There is scattered colonic diverticulosis. No free fluid seen. The bladder is distended. CT/CT hip RT wo IV con IMPRESSION: Severe degenerative arthritis right hip joint. No visible acute fracture, dislocation or subluxation seen. Colonic diverticulosis.
--- NOTE | ~2023-06-13 | XR_ITS ---
EXAMINATION: XR HIP, RIGHT CLINICAL INFORMATION: Right hip pain post fall COMPARISON: None available. TECHNIQUE: A frontal radiograph of the pelvis and frontal and crosstable lateral views of the right hip were acquired. of the right hip. FINDINGS: There are severe degenerative changes of the superolateral compartment of the right hip joint, with joint space narrowing, subchondral sclerosis and cyst formation. However, no acute fracture or subluxation of the right hip or bony pelvis is evident. The sacrum and sacroiliac joints are intact. XR/XR hip RT min 2V IMPRESSION: 1. Advanced right hip superolateral osteoarthrosis. 2. No detected fracture of the right hip or bony pelvis.
--- NOTE | 2023-06-13 05:35 | ECG_ITS ---
Test Reason : FALL Blood Pressure : / mmHG Vent. Rate : 072 BPM Atrial Rate : 072 BPM P-R Int : 172 ms QRS Dur : 136 ms QT Int : 436 ms P-R-T Axes : 076 102 017 degrees QTc Int : 477 ms Poor data quality Normal sinus rhythm Right bundle branch block Cannot rule out Inferior infarct , age undetermined Abnormal ECG When compared with ECG of 13-MAY-2022 18:25, QRS duration has increased Minimal criteria for Inferior infarct are now Present Referred By: Milly Olivares Electronically Signed By:GINNY ALVAREZ MD
--- NOTE | 2023-06-13 05:39 | ED_ITS ---
HPI - Fall General Chief Complaint: Fall Stated Complaint: fall Time Seen by Provider: 06/13/23 05:27 Source: patient Mode of arrival: EMS Limitations: no limitations History of Present Illness HPI Narrative: Patient comes to the emergency room by ambulance from home. Earlier today, patient went to the bathroom. Patient states that she tripped, and fell into the bathtub. Patient was able to get herself out of the bathtub and called 911. Patient states that she has right hip pain. Patient is scheduled to get a right hip replacement in a few weeks. However, the format the pain worse. Patient states she did not hit her head, but did not lose consciousness, and she has not taking any blood thinners. Patient denies headache or neck pain. Per EMS, patient refused C-collar Related Data Home Medications Medication Instructions Recorded Confirmed aspirin 81 mg tablet,delayed 81 mg PO DAILY 02/24/20 06/04/23 release (Adult Aspirin Regimen) denosumab 60 mg/mL subcutaneous 60 mg subcut [id number] 05/16/20 06/04/23 syringe (Prolia) magnesium 250 mg tablet 250 mg PO DAILY 05/24/21 06/04/23 tolterodine 4 mg capsule,extended 4 mg PO DAILY 03/26/23 06/04/23 release 24 hr Previous Rx's Medication Instructions Recorded acetaminophen 650 mg 1,300 mg (2 x 650 mg) PO Q6H Pain 08/20/22 tablet,extended release (Tylenol (Scale Score 1-3) 30 days #240 tabs Arthritis Pain) ezetimibe 10 mg tablet 10 mg PO DAILY 90 days #90 tabs 11/28/22 tiotropium bromide 18 mcg capsule 1 cap inhalation DAILY 90 days #90 11/30/22 with inhalation device inhalations rosuvastatin 10 mg tablet 10 mg PO DAILY 90 days #90 tabs 12/23/22 nitrofurantoin macrocrystal 100 mg 100 mg PO BEDTIME 90 days #90 caps 12/31/22 capsule vibegron 75 mg tablet (Gemtesa) 75 mg PO DAILY 90 days #90 tabs 02/28/23 lansoprazole 30 mg capsule,delayed 30 mg PO DAILY@0630 #90 caps 03/01/23 release carvedilol 12.5 mg tablet 12.5 mg PO BID 90 days #180 tabs 12/06/23 tiotropium bromide 1.25 2 puff inhalation BEDTIME 30 days 04/22/23 mcg/actuation mist for inhalation #4 grams (Spiriva Respimat) chlorthalidone 25 mg tablet 25 mg PO DAILY 90 days #90 tabs 04/30/23 losartan 100 mg tablet 100 mg PO DAILY 90 days #90 tabs 06/03/23 amlodipine 5 mg tablet 5 mg PO DAILY 90 days #90 tabs 06/07/23 tramadol 50 mg tablet 50 mg PO BID PRN pain #10 tabs 06/13/23 Allergies Allergy/AdvReac Type Severity Reaction Status Date / Time cephalexin [Keflex] Allergy Intermediate Unknown Verified 06/04/23 11:27 tetracycline [Tetracycline] Allergy Intermediate TONGUE Verified 06/04/23 11:27 SWOLLEN Review of Systems 2 Review of Systems: Constitutional : No Weight loss, No Fever, No Chills, No Night Sweats, No Fatigue, No Malaise ENT/Mouth : No Hearing loss, No Ear Pain, No Nasal Congestion, No Sinus Pain, No Hoarseness, No sore throat, No Rhinorrhea, No Swallowing Difficulty Eyes: No Eye Pain, No Swelling, No Redness, No Foreign Body, No Discharge, No Vision Changes Cardiovascular : No Chest Pain, No SOB, No Dyspnea on Exertion, No Orthopnea, No Edema, No Palpitations Respiratory : No Cough, No Sputum, No Wheezing, No Smoke Exposure, No Dyspnea Gastrointestinal : No Nausea, No Vomiting, No Diarrhea, No Constipation, No abdominal Pain, No Hematochezia, No Melena Genitourinary : no irregular bleeding, No Dysuria, No Urinary Frequency, No Hematuria, No Urinary Incontinence, No Urgency, No Flank Pain, No Urinary Flow Changes, No Hesitancy Musculoskeletal : Complaining of worsening pain in the right hip No Myalgias, No Joint Swelling Skin : No Skin Lesions, No rash Neuro : No Weakness, No Numbness, No Paresthesias, No Loss of Consciousness, No Dizziness, No Headache Psych : No Anxiety/Panic, No Depression, No SI/HI/AH/VH, No Social Issues, Heme/Lymph: No Bruising, No Bleeding,No Lymphadenopathy Endocrine : No Polyuria, No Polydipsia, No Temperature Intolerance PMFSH Past Medical History Medical History Acute leg pain Facial paresthesia Swelling of lower extremity Right leg swelling Hospital discharge follow-up Hypertensive urgency Constipation Frequent UTI Edema of left lower leg Leg cramping Primary hypertension Uncontrolled hypertension Left hip pain Left-sided weakness Left sided sciatica Adult general medical exam Screening for breast cancer Osteoarthritis of right hip Hospital discharge follow-up Vitamin D deficiency Hypercalcemia Multiple lacunar infarcts Hearing loss Urge urinary incontinence GERD (gastroesophageal reflux disease) COPD (chronic obstructive pulmonary disease) Hypertension Dyslipidemia Hypercalcemia Osteoporosis History of ductal carcinoma in situ (DCIS) of breast Surgical History History of colonoscopy History of lumpectomy of right breast History of pubovaginal sling H/O right inguinal hernia repair Family History Family History Father Heart failure CVD (cardiovascular disease) Mother Breast cancer Social History Social History Household Members: None Housing: House Do you presently have visiting nurse or other home services: No Alcohol intake: former Patient Tobacco Use Status: Former Tobacco user Quit Date: 02/04/91 Tobacco use type: Cigarette Smoked in Last 30 Days: No e-Cigarette/Vaping Use: Never Used Second Hand Smoke Exposure: No Use of substances other than those prescribed or required for medical reasons: No Advance Directives: Yes Advance Directives on File: Yes Advance Directives Date on File: 10/19/21 service: No Current occupational status: retired Cognitive needs: Yes (CANE) Hearing needs: Yes (hearing aide) Vision needs: No (glaases) Physical Exam 2 Vital Signs: Vital Signs: Last Vital Signs Temp 98.2 F 06/13/23 10:43 Pulse 71 06/13/23 11:25 Resp 16 06/13/23 10:43 BP 140/53 H 06/13/23 11:25 Pulse Ox 97 06/13/23 11:25 O2 Del Method Room Air 06/13/23 10:43 BMI result Body Mass Index 23.3 Const: Other: Appearance: Alert. Oriented X3. No acute distress. Eyes: Pupils equal, round and reactive to light. ENT: Pharynx normal. Neck: Normal inspection. Neck supple. No lymph nodes noted. No crepitus, no C- spine tenderness CVS: Normal heart rate and rhythm. Pulses normal. Normal S1 and S2 Respiratory: No respiratory distress. Breath sounds normal. No Wheezing. No rales Abdomen: Soft and nontender. No rigidity. No distention. Skin: Skin warm and dry. Normal skin color. Normal skin turgor. Extremities: No lower extremity edema. No Lacerations. No Rash. Patient able to flex and extend the left hip. Patient can not lift the right hip due to pain Neuro: Oriented X 3. No motor deficit. No sensory deficit. Moving all extremities. No slurred speech. CN 2 through 12 grossly intact Psych: calm, cooperative, normal affect Course Course Course Narrative: -all of patient's labs pending -x-rays pending -patient was given p.o. tramadol for the hip pain. Discussed with the patient that if that does not work, we can offer her stronger pain meds. Patient states that she is hesitant to take anything stronger than tramadol Reevaluation(s) Reevaluation #1: I received sign-out from night provider Dr. Olivares. Who had ordered a CT of the hip to rule out fracture. CT of hip with severe degenerative arthritis to the right hip joint no visible acute fracture dislocations or subluxations. Patient aware of these findings. This time will place patient in observation to allow more time to be evaluated by physical therapy and case management. Time: 10:19 Reevaluation #2: Patient is seen with physical therapy, patient will go home with physical therapy. Her sister will bring her home. Time: 14:20 Medications Administered Discontinued Medications Generic Name Dose Route Start Last Admin Trade Name Henrikq PRN Reason Stop Dose Admin Tramadol HCl 50 mg 06/13/23 05:35 06/13/23 05:47 Tramadol Hcl 50 Mg Tablet PO 06/13/23 05:36 50 mg ONCE ONE Administration Medical Decision Making Medical Decision Making MDM Narrative: -my interpretation of head CT and neck CT: No obvious head bleed, subdural hematoma or fracture. Cervical spine normal alignment. -my interpretation of x-ray of the hip, severe osteoarthritis, no obvious fracture. -I attempted to help the patient get up. Patient states that her hip hurts too much to even move it. We will go ahead and order a CT scan of the hip. -patient is by herself. If patient does not have a fracture, she will need case management/PT. And if patient does have a fracture, she will need orthopedics consult. Of note, patient has an appointment with orthopedics pending on June 26 for a right hip replacement. -please follow-up with CT scan -sign-out given to my colleague LUKE Willis Differential Diagnosis Differential Diagnoses: The differential diagnosis associated with the presentation includes (Osteoarthritis, hip fracture, contusion, dislocation) Admission/Observation Consideration of admission/observation: Escalation of care including admission/observation considered (Here in patient's symptoms and mechanism of fall, admission considered) Lab Data MDM Lab Attestation statement: I reviewed the patient's lab results. 06/13/23 05:43 06/13/23 05:43 Labs: Lab Results 06/13/23 Range/Units 05:43 WBC 4.9 (4.8-10.8) X10*3/uL RBC 3.12 L (4.20-5.50) X10*6/uL Hgb 9.5 L (12.0-16.0) g/dl Hct 29.1 L (37.0-47.0) % MCV 93.3 (80.0-98.0) fL MCH 30.4 (27.0-33.0) pg MCHC 32.6 (31.0-35.0) g/dl RDW 13.1 (11.0-16.0) % Plt Count 261 (160-400) X10*3/uL MPV 9.2 L (9.4-12.3) fL Immature Gran % (Auto) 0.2 (0.0-0.4) % Neut % (Auto) 62.6 (45-73) % Lymph % (Auto) 22.8 (20-40) % [place] % (Auto) 12.3 H (2-11) % Eos % (Auto) 1.9 (0-4) % Baso % (Auto) 0.2 (0-2) % Lymph # (Auto) 1.1 L (1.2-4.9) X10*3/uL [place] # (Auto) 0.6 (0.1-1.2) X10*3/uL Eos # (Auto) 0.1 (0.0-0.4) X10*3/uL Baso # (Auto) 0.0 (0.0-0.2) X10*3/uL Abs Immat Gran (auto) 0.01 (0.00-0.03) X10*3/uL Absolute Neuts (auto) 3.0 (2.0-8.3) x10*3/uL Absolute Nucleated RBC 0.000 (0.0-0.012) X10*3/uL Nucleated RBC % (auto) 0.0 (0.0-0.2) /100WBC PT 11.2 (11.1-13.3) SEC INR 0.9 (0.9-1.1) Sodium 142 (135-145) mmol/L Potassium 4.2 (3.3-5.1) mmol/L Chloride 109 H (96-108) mmol/L Carbon Dioxide 23 (22-29) mmol/L Anion Gap 14 (12-20) BUN 28 H (9-16) mg/dL Creatinine 0.92 (0.5-1.4) mg/dL Estim Creat Clear Calc 28.5 Estimated GFR 58 Random Glucose 108 (60-115) mg/dL Calcium 9.8 (8.4-10.2) mg/dL Total Bilirubin 0.5 (0.0-1.0) mg/dL Direct Bilirubin 0.2 (0.0-0.5) mg/dL AST 22 (5-31) U/L ALT 17 (0-31) U/L Alkaline Phosphatase 57 (39-117) U/L Total Protein 7.0 (6.5-8.0) g/dL Albumin 4.0 (3.5-5.0) g/dL Independent Interpretation I performed an independent interpretation of an: Plain X-Ray and CT Scan Radiology Impression Discussion of test interpretation with radiology: I have reviewed the radiologist's reading. Radiologist Impression: There are severe degenerative changes of the superolateral compartment of the right hip joint, with joint space narrowing, subchondral sclerosis and cyst formation. However, no acute fracture or subluxation of the right hip or bony pelvis is evident. The sacrum and sacroiliac joints are intact. XR/XR hip RT min 2V IMPRESSION: 1. Advanced right hip superolateral osteoarthrosis. 2. No detected fracture of the right hip or bony pelvis. FINDINGS: Motion slightly limits evaluation. There is cerebral volume loss with prominence of the lateral and the third ventricles. The cortical sulci are widened appropriately. The fourth ventricle and basal cisterns are normally outlined. There is moderate bilateral periventricular and central white matter diminished attenuation. Old bilateral basal ganglia lacunar infarcts are noted. There is no acute territorial defect, hemorrhage or midline shift. The extra-axial spaces are unremarkable. Calvarium: Intact. Maxillofacial sinuses and mastoids: Clear as visualized. Cervical spine: There is grade 1 anterolisthesis C7 over T1. The alignment is otherwise normal. There is moderate diffuse cervical disc degenerative change with loss of disc space, endplate change and posterior osteophytes associated with moderate diffuse facet osteoarthritic hypertrophic change with multilevel minimal spinal canal and multilevel [id number] neuroforaminal narrowing. The bony structures are osteopenic. No acute fractures seen. The soft tissues are unremarkable. There is upper lung field emphysematous change. CT/CT head/brain wo IV con IMPRESSION: 1. No acute intracranial process seen. 2. Age-related cerebral volume loss with chronic small vessel ischemic changes. 3. No acute fracture or dislocation in cervical spine. There is grade 1 anterolisthesis C7 over T1. There is diffuse cervical spondylosis with multilevel minimal spinal canal and multilevel [id number]-pocybxng neuroforaminal narrowing. Critical Care Time Critical Care Time Critical Care Time: Yes Total Critical Care Time: 60 Attestation: I attest to this time spent taking care of the patient, obtaining history, physical, reviewing labs, imaging, speaking to my attending, speaking to specialist. Discharge Plan Discharge Clinical Impression: Fall, Acute hip pain Patient Disposition: Still a Patient Instructions: Osteoarthritis (ED), Arthralgia (ED), Fall Prevention (ED) Additional Instructions: Take your medications as prescribed. If you were prescribed antibiotics today, it is important that you take your medication to their entirety, do not skip any doses, do not finish them early. Follow-up with your primary care provider this week. Return to the emergency department with new or worsening symptoms. Such as fevers, chills, chest pain, shortness of breath, nausea, vomiting, dizziness, headache, vision changes, lethargy In case of emergency call 911 US/US venous duplex LE BI IMPRESSION: No DVT demonstrated in the left lower extremity. Incomplete evaluation of the right lower extremity with no DVT demonstrated from the common femoral vein through the femoral vein. Prescriptions: New tramadol 50 mg tablet 50 mg PO BID PRN (Reason: pain) Qty: 10 0RF No Action ezetimibe 10 mg tablet 10 mg PO DAILY 90 Days Qty: 90 3RF tiotropium bromide 18 mcg capsule, w/inhalation device 1 cap inhalation DAILY 90 Days Qty: 90 3RF rosuvastatin 10 mg tablet 10 mg PO DAILY 90 Days Qty: 90 1RF nitrofurantoin macrocrystal 100 mg capsule 100 mg PO BEDTIME 90 Days Qty: 90 3RF Rx Instructions: must administer with a meal/food Gemtesa 75 mg tablet 75 mg PO DAILY 90 Days Qty: 90 1RF lansoprazole 30 mg capsule,delayed release(DR/EC) 30 mg PO DAILY@0630 Qty: 90 1RF Spiriva Respimat 1.25 mcg/actuation mist 2 puff inhalation BEDTIME 30 Days Qty: 4 2RF chlorthalidone 25 mg tablet 25 mg PO DAILY 90 Days Qty: 90 1RF losartan 100 mg tablet 100 mg PO DAILY 90 Days Qty: 90 3RF amlodipine 5 mg tablet 5 mg PO DAILY 90 Days Qty: 90 1RF Prolia 60 mg/mL syringe 60 mg subcut [id number] Rx Instructions: last dose may 2021 acetaminophen [Tylenol Arthritis Pain] 650 mg tablet extended release 1,300 mg PO Q6H 30 Days Qty: 240 1RF aspirin [Adult Aspirin Regimen] 81 mg tablet,delayed release (DR/EC) 81 mg PO DAILY magnesium 250 mg tablet 250 mg PO DAILY tolterodine 4 mg capsule,extended release 24hr 4 mg PO DAILY carvedilol 12.5 mg tablet 12.5 mg PO BID 90 Days Qty: 180 3RF Rx Instructions: must administer with a meal/food Referrals: [facility] [Outside]
[2023-06-13] MEDS: traMADoL HCL 50 MG TABLET PO ×2 (05:47→15:06)
[2023-06-13 05:49] VITALS: BP 156/82; BP 183/63; PULSE 73; RESP 16; TEMP 37.1; O2SAT 95; O2SAT 98; BMI 23.3
[2023-06-13 05:49] LABS: Basophils Percent Auto 0.2 % (0-2); Eosinophils Absolute Auto 0.1 X10*3/uL (0.0-0.4); Eosinophils Percent Auto 1.9 % (0-4); Hematocrit 29.1 % (37.0-47.0); Hemoglobin 9.5 g/dl (12.0-16.0); Imm Gran Abs Auto 0.01 X10*3/uL (0.00-0.03); Imm Gran Pct Auto 0.2 % (0.0-0.4); Lymphocytes Absolute Auto 1.1 X10*3/uL (1.2-4.9); Lymphocytes Percent Auto 22.8 % (20-40); MANUAL DIFF FLAG NO; Mean Corpuscular HGB Conc 32.6 g/dl (31.0-35.0); Mean Corpuscular Hemoglobin 30.4 pg (27.0-33.0); Mean Corpuscular Volume 93.3 fL (80.0-98.0); Mean Platelet Volume 9.2 fL (9.4-12.3); Monocytes Absolute Auto 0.6 X10*3/uL (0.1-1.2); Monocytes Percent Auto 12.3 % (2-11); Neutrophils Percent Auto 62.6 % (45-73); Platelet Count 261 X10*3/uL (160-400); Red Blood Count 3.12 X10*6/uL (4.20-5.50); Red Cell Distribution Width 13.1 % (11.0-16.0); White Blood Count 4.9 X10*3/uL (4.8-10.8)
[2023-06-13 05:55] LABS: INTERNATIONAL NORM RATIO 0.9 (0.9-1.1); Prothrombin Time 11.2 SEC (11.1-13.3)
[2023-06-13 05:59] VITALS: BP 187/63; PULSE 73; RESP 16; TEMP 37.1; O2SAT 95
[2023-06-13 06:08] LABS: Alanine Aminotransferase 17 U/L (0-31); Alkaline Phosphatase 57 U/L (39-117); Anion Gap 14 (12-20); Aspartate Amino Transferase 22 U/L (5-31); Bilirubin Direct 0.2 mg/dL (0.0-0.5); Bilirubin Total 0.5 mg/dL (0.0-1.0); Blood Urea Nitrogen 28 mg/dL (9-16); Calcium 9.8 mg/dL (8.4-10.2); Carbon Dioxide 23 mmol/L (22-29); Chloride 109 mmol/L (96-108); Creatinine Clr Calc Pharmacy 28.5; Estimated Glomerular Filt Rate 58; Glucose Random 108 mg/dL (60-115); Potassium 4.2 mmol/L (3.3-5.1); Sodium 142 mmol/L (135-145)
--- NOTE | 2023-06-13 06:38 | PC.NURSE ---
Left a message with Wanda to let her know pt is here. Per pt request.
[2023-06-13 08:27] VITALS: BP 147/56; PULSE 69; RESP 18; TEMP 37.2; O2SAT 97
--- NOTE | 2023-06-13 08:47 | PC.NURSE ---
this RN resumed care of pt at this time. pt waiting for results to come back from hip CT at this time. pt denies pain. states that medication was effective post medication administration. pt verbalizing that when she lays on opposite side of affected hip - the pain subsides. no sob/wob noted. respirations even and unlabored. pt has friend bedside for support. plan of care ongoing.
[2023-06-13 10:43] VITALS: BP 140/53; PULSE 71; RESP 16; TEMP 36.8; O2SAT 97
[2023-06-13 11:25] VITALS: BP 140/53; PULSE 71; O2SAT 97
--- NOTE | 2023-06-13 11:48 | PC.NURSE ---
pt had PT evaluation. pt ambulated w/ a strong steady gait using walker as an assistive device. no sob/wob noted. respirations even and unlabored. pt verbalizes using cane to ambulate baseline or nothing at all. pt now resting back in stretcher in no apparent distress. resting on left side to promote comfort as pt states that pain increases while laying flat or on the right side. pt continues to be PT/CM. plan of care ongoing.
--- NOTE | 2023-06-13 12:14 | PC.NURSE ---
Addendum entered by Alexandria Belle joan 06/13/23 12:21: Pharmacy did not state that med rec would be completed shortly. Per policy priority med recs are done based on admissions and people approaching 24 hours in house Original Note: pt to US at this time. pharmacy also called in regards to completing medication reconciliation - states they will complete shortly.
--- NOTE | 2023-06-13 13:26 | MHC.CM.ED ---
Addendum entered by Judy Contreras 06/13/23 14:22: [facility] able to accept patient. Original Note: Received case management consult. Patient came to the ER after a fall. Work up essentially negative. Physical therapy eval completed. Home with services are recommended. Met with patient and sister, Wanda. Patient lives alone, ambulates with a cane and had no services prior to coming to the hospital. PCP verified as Dr Radhames Orozco. Copy of HCP verified to be on file. Patient agreeable to referral for [facility] for physical therapy only. Not interested in usp at this time. Agreeable to referral being broadcasted. Referral broadcasted in [facility]. Wanda will transport patient home when ready for d/c. Continue to monitor for d/c needs.
[2023-06-13 14:51] LABS: IDNOW Serial# 08D9AD1C
[2023-06-13 14:52] LABS: COVID-19 Test Negative (Negative)
== END 2023-06-13 15:07 | disposition still patient (30) ==
PROVIDERS: Physician Assistant; Emergency Provider Emergency Medicine; PCP Internal Medicine
DX: S79.911A Unspecified injury of right hip, initial encounter (principal); W17.89XA Other fall from one level to another, initial encounter; Y93.9 Activity, unspecified; Y92.89 Other specified places as the place of occurrence of the external cause; Y99.9 Unspecified external cause status; M25.551 Pain in right hip; I10 Essential (primary) hypertension; J44.9 Chronic obstructive pulmonary disease, unspecified; M54.2 Cervicalgia; M19.09 Primary osteoarthritis, other specified site; M79.89 Other specified soft tissue disorders; Z11.52 Encounter for screening for COVID-19
CPT/HCPCS: 36415; 70450; 72125; 73502; 73700; 80048; 80076; 85025; 85610; 87635; 93005; 93970; 97162; 99285

== ENCOUNTER → 2023-06-13 05:35 | Outpatient (BNV) | payer MEDICARE, OTHER, SELFPAY | PROVIDERS: Emergency Provider Emergency Medicine; Visit Provider Internal Medicine Cardiovascular Disease | DX: R94.31 Abnormal electrocardiogram [ECG] [EKG] (principal) | CPT/HCPCS: 93010 ==

== ENCOUNTER 2023-06-19 13:34 | Outpatient (AMB) | payer MEDICARE, OTHER, SELFPAY ==
--- NOTE | 2023-06-19 13:36 | A.OFFPC_ITS ---
Vital Signs 06/19/23 13:37 Height 4 ft 9 in Weight 101 lb 8 oz BMI 22.0 BP 130/78 Blood Pressure Location Lt brachial Position Sitting Intake Visit Reasons: [facility] ED follow fall Intake Note: Patient here [place] [facility] [place] 06/13/23 Collar Closer Lockstitch Required: No Accompanied by: Self / Same As Patient Allergies cephalexin [Keflex] Allergy (Intermediate, Verified 06/19/23 13:52) Unknown tetracycline [Tetracycline] Allergy (Intermediate, Verified 06/19/23 13:52) TONGUE SWOLLEN Medication List - Last Reconciled 06/19/23 by Shirin Duron MD acetaminophen ER (Tylenol Arthritis Pain) 1,300 mg (2 x 650 mg) PO Q6H 30 days amlodipine 5 mg PO DAILY 90 days aspirin (Adult Aspirin Regimen) 81 mg PO DAILY carvedilol 12.5 mg PO BID 90 days chlorthalidone 25 mg PO DAILY 90 days denosumab (Prolia) 60 mg subcut [id number] ezetimibe 10 mg PO DAILY 90 days lansoprazole 30 mg PO DAILY@0630 losartan 100 mg PO DAILY 90 days magnesium 250 mg PO DAILY nitrofurantoin macrocrystal 100 mg PO BEDTIME 90 days rosuvastatin 10 mg PO DAILY 90 days tiotropium bromide 1 cap inhalation DAILY 90 days tiotropium bromide 1.25 mcg/actuation (Spiriva Respimat) 2 puffs inhalation BEDTIME 30 days tolterodine ER 4 mg PO DAILY tramadol 50 mg PO BID PRN vibegron (Gemtesa) 75 mg PO DAILY 90 days walker As directed Tobacco use date assessed: 06/04/23 Fall risk assessment: 1 Fall in past year Last assessed Fall Risk: 06/19/23 Dental Screening Dental Screen Date: 06/19/23 Did you have a dental visit in the last 12 months?: Yes Did you have a dental problem in the last 6 months where you did not have access to dental care?: No Was dental information given to patient?: Patient has dentist HPI HPI Comments History of Present Illness Details This is an 88-year-old female with hypertension, dyslipidemia, multiple lacunar infarcts, osteoporosis and COPD that comes today as a hospital discharge follow-up with discharge date 06/13/2023 due to falling in the bathtub and hitting her head with no loss of consciousness but severe right hip pain. While in the hospital she had head CT and neck CT that were negative for something acute. CT of the hip rule out any fracture but show severe osteoarthritis. She will have a right hip replacement soon but Ortho has not set up a date yet. Blood pressure stable. On statins for her cholesterol. On aspirin for secondary prophylaxis for her lacunar infarcts. On Prolia for her osteoporosis which is follow by Endocrinology. COPD has been stable with Spiriva. Tramadol was given at ER and has somewhat relieved the pain. She has using a cane for gait stability but will benefit from a walker. She is receiving physical therapy at home. Had labs done and shows anemia but denies any active bleeding. Will be referred to Hematology-Oncology. [facility] Medical History (Updated 06/19/23 @ 15:03 by Shirin Duron MD) Hospital discharge follow-up Acute leg pain Facial paresthesia Swelling of lower extremity Right leg swelling Hypertensive urgency Constipation Frequent UTI Edema of left lower leg Leg cramping Primary hypertension Uncontrolled hypertension Left hip pain Left-sided weakness Left sided sciatica Adult general medical exam Screening for breast cancer Osteoarthritis of right hip Hospital discharge follow-up Vitamin D deficiency Hypercalcemia Multiple lacunar infarcts Hearing loss Urge urinary incontinence GERD (gastroesophageal reflux disease) COPD (chronic obstructive pulmonary disease) Hypertension Dyslipidemia Hypercalcemia Osteoporosis History of ductal carcinoma in situ (DCIS) of breast Surgical History History of colonoscopy History of lumpectomy of right breast History of pubovaginal sling H/O right inguinal hernia repair Family History Father Heart failure CVD (cardiovascular disease) Mother Breast cancer Social History Household Members: None Housing: House Do you presently have visiting nurse or other home services: No Alcohol intake: former Patient Tobacco Use Status: Former Tobacco user Quit Date: 02/04/91 Tobacco use type: Cigarette e-Cigarette/Vaping Use: Never Used Second Hand Smoke Exposure: No Advance Directives Date on File: 10/19/21 service: No Current occupational status: retired Cognitive needs: Yes (CANE) Hearing needs: Yes (hearing aide) Vision needs: No (glaases) Questionnaire Thrive Questionnaire Date Thrive assessed: 06/04/23 LEMUEL-7 AMB Questionnaire LEMUEL-7 Date LEMUEL - 7 assessed: 06/04/23 Source: Developed by Drs. Lewis Lopez, Dixie Sharma, Clay Stevenson and colleagues, with an educational chucky from [employer]. Review of Systems Const All systems reviewed & are unremarkable except as noted in HPI and below Eyes Reports no additional complaints, Denies change in vision and Denies other visual disturbances Card Denies chest pain at rest, Denies chest pain with activity, Denies edema, Denies irregular heart rhythm, Denies claudication, Denies dyspnea, Denies dyspnea on exertion, Denies orthopnea, Denies paroxysmal nocturnal dyspnea and Denies slow heart rate Resp Denies cough, Denies dyspnea and Denies dyspnea on exertion GI Denies abdominal pain, Denies change in bowel habits, Denies excessive flatus, Denies nausea and Denies vomiting Denies urinary incontinence, Denies urinary hesitancy and Denies urinary urgency Musc Denies abnormal gait, Denies atrophy, Denies deformity and Denies limited range of motion Skin/Breast Denies bleeding lesions, Denies changing lesions and Denies rash Neuro Denies abnormal gait and Denies lack of coordination Physical exam (Primary Care) Vital Signs: Last Vital Signs BP 130/78 06/19/23 13:37 BMI result Body Mass Index 22.0 Tobacco/Smoking Status: Tobacco use Status Tobacco use date assessed 06/04/23 06/19/23 13:39 Patient Tobacco Use Status Former Tobacco user 06/19/23 13:39 Tobacco use type Cigarette 06/19/23 13:39 e-Cigarette/Vaping Use Never Used 06/19/23 13:39 Thrive Assessment: Date of Thrive Assessment Date Thrive assessed 06/04/23 06/19/23 13:39 Const Limitations: ambulation with cane Eyes General: appearance normal, both eyes and all related structures Eyelids: Yes eyelids normal Conjunctivae: conjunctivae normal Neck Neck: Yes normal visual inspection and Yes supple Resp Effort & Inspection: normal respiratory effort Auscultation: clear to auscultation bilaterally Cardio Jugular venous distension: no JVD Rate: regular rate Rhythm: regular rhythm Heart sounds: S1 normal heart sound present and S2 normal heart sound present Extrem General: Yes full ROM Assessment and Plan Assessment & Plan (1) Hospital discharge follow-up: Code(s): Z09 - Encounter for follow-up examination after completed treatment for conditions other than malignant neoplasm Plan: Discharge date 06/13/2023 due to a fall. Head CT and neck CT negative for acute conditions. CT of right hip rule out fracture but shows severe degenerative arthritis which patient was aware. Was given tramadol to relieved the pain and I will refill it. Patient aware that it can cause addiction. (2) COPD (chronic obstructive pulmonary disease): Code(s): J44.9 - Chronic obstructive pulmonary disease, unspecified Qualifiers: COPD type: unspecified COPD Qualified Code(s): J44.9 - Chronic obstructive pulmonary disease, unspecified Plan: Continue Spiriva. Use rescue inhaler prn. Follow-up with pulmonology. (3) Hypertension: Code(s): I10 - Essential (primary) hypertension Qualifiers: Hypertension type: essential hypertension Qualified Code(s): I10 - Essential (primary) hypertension Plan: Continue lisinopril, amlodipine and chlorthalidone. Blood pressure goal is equal or less than 130/80. (4) Multiple lacunar infarcts: Code(s): I63.81 - Other cerebral infarction due to occlusion or stenosis of small artery Plan: Continue aspirin for secondary prophylaxis. (5) Osteoarthritis of right hip: Code(s): M16.11 - Unilateral primary osteoarthritis, right hip Qualifiers: Osteoarthritis type: primary Qualified Code(s): M16.11 - Unilateral primary osteoarthritis, right hip Plan: Continue tramadol. Follow-up with ortho. (6) Anemia: Code(s): D64.9 - Anemia, unspecified Plan: Referred to Hematology-Oncology (7) Dyslipidemia: Code(s): E78.5 - Hyperlipidemia, unspecified Plan: Continue statins. (8) Osteoporosis: Code(s): M81.0 - Age-related osteoporosis without current pathological fracture Qualifiers: Osteoporosis type: age-related Presence of current pathological fracture: without current pathological fracture Qualified Code(s): M81.0 - Age- related osteoporosis without current pathological fracture Plan: Continue Prolia. Orders: Referrals Hematology & Oncology Referral D64.9 - Anemia, unspecified Medications: Refilled walker As directed 1 ea 0RF M16.11 - Unilateral primary osteoarthritis, right hip tramadol 50 mg PO BID PRN 10 tabs 0RF pain Coding Level of Care Code TCM Mod MDM <= 7 Days Diagnoses Hospital discharge follow-up Z09 Chronic obstructive pulmonary disease, unspecified COPD type J44.9 COPD type: unspecified COPD Essential hypertension I10 Hypertension type: essential hypertension Multiple lacunar infarcts I63.81 Primary osteoarthritis of right hip M16.11 Osteoarthritis type: primary Anemia D64.9 Dyslipidemia E78.5 Age-related osteoporosis without current pathological fracture M81.0 Osteoporosis type: age-related Presence of current pathological fracture: without current pathological fracture Time Spent (min) 23
[2023-06-19 13:37] VITALS: BP 130/78; BMI 22.0
== END 2023-06-19 14:05 | disposition home or self-care (01) ==
PROVIDERS: Visit Provider Internal Medicine
DX: M17.12 Unilateral primary osteoarthritis, left knee (principal); W19.XXXA Unspecified fall, initial encounter; M81.0 Age-related osteoporosis without current pathological fracture; D64.9 Anemia, unspecified; E78.5 Hyperlipidemia, unspecified
CPT/HCPCS: 99213

== ENCOUNTER 2023-07-23 15:13 | Outpatient (REF) | payer MEDICARE, OTHER, SELFPAY | END 2023-07-23 15:14 | disposition home or self-care (01) | LOC: HO.LAB 15:13 | PROVIDERS: PCP Internal Medicine; Visit Provider Internal Medicine Nephrology | DX: Z13.89 Encounter for screening for other disorder (principal) ==

== ENCOUNTER 2023-07-30 12:12 | Outpatient (AMB) | payer MEDICARE, OTHER, SELFPAY ==
[2023-07-30 12:16] VITALS: BP 120/60; PULSE 67; O2SAT 98; BMI 21.0
--- NOTE | 2023-07-30 12:16 | HO.NEPHOV ---
HPI HPI Comments History of Present Illness Details I had the privilege of seeing Chichi in follow-up of her hypertension. She has history of cerebrovascular accident. She monitors her blood pressure closely. She denies any chest pain, dizziness, headache, visual disturbance, pedal edema. She monitors her blood pressure at home. Her blood pressure had been remaining close to goal. She avoids nonsteroidal anti-inflammatory medication and chief with a low-sodium diet. She is awaiting hip surgery. She has history of renal cyst. She has no flank pain, hematuria or any other urinary symptoms. She has anemia & has been seen by Heme Onc. She is due to have hip surgery on August 20 [facility] Medical History (Updated 07/23/23 @ 15:16 by Macy Steele MD) Hospital discharge follow-up Acute leg pain Facial paresthesia Swelling of lower extremity Right leg swelling Hypertensive urgency Constipation Frequent UTI Edema of left lower leg Leg cramping Primary hypertension Uncontrolled hypertension Left hip pain Left-sided weakness Left sided sciatica Adult general medical exam Screening for breast cancer Osteoarthritis of right hip Hospital discharge follow-up Vitamin D deficiency Hypercalcemia Multiple lacunar infarcts Hearing loss Urge urinary incontinence GERD (gastroesophageal reflux disease) COPD (chronic obstructive pulmonary disease) Hypertension Dyslipidemia Hypercalcemia Osteoporosis History of ductal carcinoma in situ (DCIS) of breast Surgical History (Updated 07/23/23 @ 15:16 by Macy Steele MD) History of colonoscopy History of lumpectomy of right breast History of pubovaginal sling H/O right inguinal hernia repair Family History Father Heart failure CVD (cardiovascular disease) Mother Breast cancer Social History (Updated 07/23/23 @ 14:52 by Luis Felipe Monge) Household Members: None Housing: House Do you presently have visiting nurse or other home services: No Alcohol intake: former Patient Tobacco Use Status: Former Tobacco user Quit Date: 02/04/91 Tobacco use type: Cigarette e-Cigarette/Vaping Use: Never Used Second Hand Smoke Exposure: No Advance Directives Date on File: 10/19/21 service: No Current occupational status: retired Cognitive needs: Yes (CANE) Hearing needs: Yes (hearing aide) Vision needs: No (glaases) Vital Signs 07/30/23 12:16 Height 4 ft 9 in Weight 97 lb BMI 21.0 BP 120/60 Blood Pressure Location Rt brachial Position Sitting Pulse 67 Pulse Source Pulse Oximeter Pulse Oximetry (%) 98 Oxygen Delivery Method Room Air Physical Exam Const General: comfortable and no acute distress Orientation/consciousness: patient oriented x3 HEENT Head: Yes normocephalic Mouth: Normal oral and palatal mucosa present Eyes EOM: EOMs intact bilaterally Neck Neck: Yes supple Resp Auscultation: clear to auscultation bilaterally Cardio Jugular venous distension: no JVD Rate: regular rate GI Palpation (GI): Soft to palpation Auscultation: normal bowel sounds General: Yes no CVA tenderness Back/Spine/Pelvis Back: no CVA tenderness Skin General skin exam: no rashes or lesions noted Neuro General: patient oriented x3 and moves all extremities Extrem General: Yes no pedal edema Assessment & Plan Assessment & Plan (1) Renal cyst: Code(s): N28.1 - Cyst of kidney, acquired (2) Hypertension: Code(s): I10 - Essential (primary) hypertension Qualifiers: Hypertension type: essential hypertension Qualified Code(s): I10 - Essential (primary) hypertension Plan Chichi has longstanding hypertension. She has history of CVA. She is not known to have any significant proteinuria. Her renal functions are at baseline. Her serum potassium is normal. She is compliant with her medications. She monitors her blood pressure very closely at home and has been at goal. She avoids nonsteroidal anti-inflammatory medications and maintain good hydration. She is looking forward for her hip surgery. There are no reservation from a renal perspective to have her undergo hip surgery. Her renal cyst has been asymptomatic. After the next visit I will order a follow-up renal ultrasound to look at her renal cyst. She maintains a low-sodium diet. I did not make any medication changes today. All questions answered. Follow-up given Coding Level of Care Code Est Pt Level 4 (19644) Diagnoses Renal cyst N28.1 Essential hypertension I10 Hypertension type: essential hypertension Results Reviewed Nephrology Results: Hgb 7.8 g/dl (12.0-16.0) L 07/23/23 WBC 3.7 X10*3/uL (4.8-10.8) L 07/23/23 Plt Count 283 X10*3/uL (160-400) 07/23/23 Sodium 144 mmol/L (135-145) 07/23/23 Potassium 3.8 mmol/L (3.3-5.1) 07/23/23 Chloride 111 mmol/L (96-108) H 07/23/23 Carbon Dioxide 26 mmol/L (22-29) 07/23/23 BUN 26 mg/dL (9-16) H 07/23/23 Creatinine 0.86 mg/dL (0.5-1.4) 07/23/23 Calcium 9.4 mg/dL (8.4-10.2) 07/23/23
== END 2023-07-30 12:33 | disposition home or self-care (01) ==
LOC: HO.HKA 12:12
PROVIDERS: PCP Internal Medicine; Visit Provider Internal Medicine Nephrology
DX: N28.1 Cyst of kidney, acquired (principal); I10 Essential (primary) hypertension
CPT/HCPCS: 99214

== ENCOUNTER → 2023-07-30 12:12 | Outpatient (BNVA) | payer MEDICARE, OTHER, SELFPAY | PROVIDERS: PCP Internal Medicine; Visit Provider Internal Medicine Nephrology | DX: N28.1 Cyst of kidney, acquired (principal); I10 Essential (primary) hypertension | CPT/HCPCS: 99212 ==

== ENCOUNTER 2023-08-18 11:48 | Outpatient (AMB) | payer MEDICARE, OTHER, SELFPAY ==
--- NOTE | 2023-08-18 11:51 | A.OFFVIS_ITS ---
Intake Visit Reasons: 6m follow up Intake Note: Patient presents today for a follow-up on Cystocele, unspecified, Overactive bladder, chronic cystitis: Meds- Gemtesa Allergies to Antibiotic- Cephalexin Blood Thinner- Aspirin Assembler Fitter Required: No Accompanied by: Self / Same As Patient Allergies cephalexin [Keflex] Allergy (Intermediate, Verified 08/19/23 14:01) Unknown tetracycline [Tetracycline] Allergy (Intermediate, Verified 08/19/23 14:01) TONGUE SWOLLEN HPI Comments Details: 08/18/23--Chichi is an 88-year-old female who presents today to the office for a follow-up. She is being followed due to pelvic floor weakness, cystocele, chronic cystitis, and OAB symptoms. She states she is doing well on tolteridine 4mg daily. She denies dysuria or hematuria. Will continue tolteridine. Review of charts: 02/14/2023? She has a past medical history of hypertension, GERD, COPD, dyslipidemia, and osteoporosis, ductal insitu breast cancer. She also has history of stroke. Patient has lower urinary tract symptoms of frequency and urge incontinence. She has been on nitrofurantoin 100mg daily for prophylaxis and feels that this has significantly helped and wants to continue this medication. She was last seen by me on 10/16/2022 to discuss cystocele, exam noted mild pelvic floor laxity. I discontinued tolterodine at that time started Gemtesa 75 mg QD and Estrogen cream. Patient states that the cream has caused irritation on her skin and had burning sensation, so she has discontinued using the cream. Patient states that she has been taking Gemtesa 75 mg daily but she feels that she is not emptying her bladder as easily and states that she feels like she needs to go to the bathroom more frequently. I will resume tolterodine 4 mg as she tolerated it better. Cont. Nitrofurantoin 100mg daily. SEAN estrace cream. Follow-up in 6 months. 10/16/22--Pelvic exam: Mild cystocele, no significant prolapse, atrophic vaginitis noted. [facility] Medical History Hospital discharge follow-up Acute leg pain Facial paresthesia Swelling of lower extremity Right leg swelling Hypertensive urgency Constipation Frequent UTI Edema of left lower leg Leg cramping Primary hypertension Uncontrolled hypertension Left hip pain Left-sided weakness Left sided sciatica Adult general medical exam Screening for breast cancer Osteoarthritis of right hip Hospital discharge follow-up Vitamin D deficiency Hypercalcemia Multiple lacunar infarcts Hearing loss Urge urinary incontinence GERD (gastroesophageal reflux disease) COPD (chronic obstructive pulmonary disease) Hypertension Dyslipidemia Hypercalcemia Osteoporosis History of ductal carcinoma in situ (DCIS) of breast Surgical History History of colonoscopy History of lumpectomy of right breast History of pubovaginal sling H/O right inguinal hernia repair Family History Father Heart failure CVD (cardiovascular disease) Mother Breast cancer Social History Household Members: None Housing: House Do you presently have visiting nurse or other home services: No Alcohol intake: former Patient Tobacco Use Status: Former Tobacco user Tobacco use type: Cigarette e-Cigarette/Vaping Use: Never Used Second Hand Smoke Exposure: No Advance Directives Date on File: 10/19/21 service: No Current occupational status: retired Cognitive needs: Yes (CANE) Hearing needs: Yes (hearing aide) Vision needs: No (glaases) Review of Systems Const All systems reviewed & are unremarkable except as noted in HPI and below Reports no additional complaints Eyes Reports no additional complaints ENT Reports no additional complaints Card Reports no additional complaints Resp Reports no additional complaints GI Reports no additional complaints Reports as per HPI Musc Reports no additional complaints Skin/Breast Reports system reviewed and no additional complaints, except as documented Neuro Reports no additional complaints Psych Reports no additional complaints Endo Reports no additional complaints Adarsh/Lymph Reports no additional complaints Aller/Immun Reports no additional complaints Results Reviewed Results Reviewed: Ordering Physician: Aye Johnson Date of Service: 08/29/22 EXAMINATION: US RETROPERITONEAL COMPLETE (RENAL) FINDINGS: RIGHT KIDNEY: 7.4 x 3.8 x 4.2 cm (SAG x AP x TRV). The kidney is small but normal in contour, and echogenicity. Renal cortical thickness is normal. There are multiple renal cysts. The largest measures 6.4 x 6.1 x 6.1 cm in the upper pole and has thin septations. No imaging follow-up recommended. No renal calculi or hydronephrosis. LEFT KIDNEY: 9.0 x 4.5 x 3.6 cm (SAG x AP x TRV). The kidney is slightly small but normal in contour, and echogenicity. Renal cortical thickness is normal. There are multiple renal cysts. The largest measures 3.1 x 2.6 x 2.4 cm exophytic to the midpole. No imaging follow-up recommended. No renal calculi or hydronephrosis. BLADDER: The bladder wall is normal in thickness. There is irregularity of the contour of the inferior bladder, question corresponding to a cystocele seen by CT. Bilateral ureteral jets are demonstrated. Prevoid bladder volume is 150 mL. Postvoid bladder volume was not obtained. IMPRESSION: Small kidneys. Bilateral renal cysts. Irregular contour or outpouching of the inferior bladder, question representing cystocele. Post void residual not obtained. Assessment & Plan Assessment & Plan (1) Cystocele, unspecified: Code(s): N81.10 - Cystocele, unspecified Category: Medical (2) Urge urinary incontinence: Code(s): N39.41 - Urge incontinence Category: Medical (3) Overactive bladder: Code(s): N32.81 - Overactive bladder Category: Medical (4) Renal cyst: Code(s): N28.1 - Cyst of kidney, acquired Category: Medical (5) Chronic cystitis: Code(s): N30.20 - Other chronic cystitis without hematuria Category: Medical (6) Atrophic vaginitis: Code(s): N95.2 - Postmenopausal atrophic vaginitis Category: Medical Plan Continue tolterodine 4 mg daily. FU in 4 months Patient Instructions: The patient had an opportunity to ask questions regarding treatment plan. The patient expressed understanding and agreement with the above treatment plan. The patient is aware they should contact our office by phone for worsening of their current condition or the appearance of new symptoms. Compliance is encouraged with any medications and followup testing that is ordered. It is a privilege to be allowed the opportunity to participate in the urologic care of your patient. If you have any questions or concerns regarding treatment for the above conditions please do not hesitate to contact me. The office telephone contact is [phone]. This note is constructed in part using voice recognition software. While every effort has been made to ensure accuracy blocking machine operator errors may have been included. Yours sincerely, Daysi Euceda MD Coding Level of Care Code Est Pt Level 3 (89335) Complex EM visit Add On G2211 Diagnoses Cystocele, unspecified N81.10 Urge urinary incontinence N39.41 Overactive bladder N32.81 Renal cyst N28.1 Chronic cystitis N30.20 Atrophic vaginitis N95.2
== END 2023-08-18 12:19 | disposition home or self-care (01) ==
LOC: HO.HUSH 11:48
PROVIDERS: PCP Internal Medicine; Visit Provider Urology
DX: N81.10 Cystocele, unspecified (principal); N39.41 Urge incontinence; N32.81 Overactive bladder; N28.1 Cyst of kidney, acquired; N30.20 Other chronic cystitis without hematuria; N95.2 Postmenopausal atrophic vaginitis
CPT/HCPCS: 99213; G2211

== ENCOUNTER → 2023-08-18 11:48 | Outpatient (BNVA) | payer MEDICARE, OTHER, SELFPAY | PROVIDERS: PCP Internal Medicine; Visit Provider Urology | DX: N32.81 Overactive bladder (principal); N30.20 Other chronic cystitis without hematuria; N81.10 Cystocele, unspecified; N39.41 Urge incontinence; Z79.899 Other long term (current) drug therapy | CPT/HCPCS: 99212 ==

== ENCOUNTER → 2023-08-19 13:20 | Outpatient (BNV) | payer MEDICARE, OTHER, SELFPAY | PROVIDERS: PCP Internal Medicine; Visit Provider Internal Medicine | DX: D64.9 Anemia, unspecified (principal) | CPT/HCPCS: 99213; 99214; G2211 ==

== ENCOUNTER 2023-09-18 14:46 | Outpatient (REF) | payer MEDICARE, OTHER, SELFPAY ==
[2023-09-18 14:49] LABS: MANUAL DIFF FLAG NO
[2023-09-18 15:15] LABS: Basophils Percent Auto 0.2 % (0-2); Eosinophils Absolute Auto 0.1 X10*3/uL (0.0-0.4); Eosinophils Percent Auto 1.8 % (0-4); Hematocrit 30.7 % (37.0-47.0); Hemoglobin 9.7 g/dl (12.0-16.0); Imm Gran Abs Auto 0.01 X10*3/uL (0.00-0.03); Imm Gran Pct Auto 0.2 % (0.0-0.4); Mean Corpuscular HGB Conc 31.6 g/dl (31.0-35.0); Mean Corpuscular Hemoglobin 31.1 pg (27.0-33.0); Mean Corpuscular Volume 98.4 fL (80.0-98.0); Mean Platelet Volume 9.7 fL (9.4-12.3); Monocytes Absolute Auto 0.5 X10*3/uL (0.1-1.2); Monocytes Percent Auto 9.1 % (2-11); Neutrophils Absolute Auto 4.1 x10*3/uL (2.0-8.3); Neutrophils Percent Auto 71.7 % (45-73); Platelet Count 302 X10*3/uL (160-400); Red Blood Count 3.12 X10*6/uL (4.20-5.50); Red Cell Distribution Width 18.2 % (11.0-16.0); White Blood Count 5.7 X10*3/uL (4.8-10.8)
== END 2023-09-18 14:47 | disposition home or self-care (01) ==
LOC: HO.HVNA 14:46
PROVIDERS: Visit Provider Internal Medicine
DX: D64.9 Anemia, unspecified (principal)
CPT/HCPCS: 36415; 85025

== ENCOUNTER 2023-09-23 10:24 | Outpatient (REF) | payer MEDICARE, OTHER, SELFPAY ==
--- NOTE | ~2023-09-23 | MM_ITS ---
EXAMINATION: BONE DENSITOMETRY CLINICAL INDICATION: Age-related osteoporosis without current pathological fracture. COMPARISON: Previous BD dated 07/08/2021 and baseline BD dated 05/29/2007. TECHNIQUE: Using a [employer] DXA System (software version: 13.1) manufactured by [employer], dual-energy x-ray absorptiometry was performed of the lumbar spine, left hip, and left forearm radius 33%. The images are of good technical quality. Summary results are attached. FINDINGS: AP SPINE L1-L4: Current: BMD 0.858 g/cm2, Z-score -0.3, T-score -2.7, osteoporosis, 4.4% increase from previous, 11.9% increase from baseline (<5% change is not significant). Prior: BMD 0.822 g/cm2. Baseline: BMD 0.767 g/cm2. LEFT FOREARM RADIUS 33%: BMD 0.623 g/cm2, Z-score 0.6, T-score -2.9, osteoporosis, 9.8% decrease from previous, 8.4% decrease from baseline (<5% change is not significant). Prior: BMD 0.691 g/cm2. Baseline 06/29/2013: BMD 0.680 g/cm2. LEFT FEMUR, NECK: Current: BMD 0.741 g/cm2, Z-score 0.7, T-score -2.1, osteopenia. Prior: BMD 0.780 g/cm2. Baseline: BMD 0.756 g/cm2. LEFT FEMUR, TOTAL: Current: BMD 0.783 g/cm2, Z-score 1.0, T-score -1.8, osteopenia, 3.7% decrease from previous, 0.1% decrease from baseline (<5% change is not significant). Prior: BMD 0.813 g/cm2. Baseline: BMD 0.784 g/cm2. IDENTIFIED RISK FACTORS: Menopause, hysterectomy, height loss, family history (parent hip fracture), osteoporosis, recurrent falls, thiazide. HISTORY OF FRACTURE: None listed. MEDICATIONS: Prolia. MM/XR DEXA appendicular skeleton IMPRESSION: 1. DIAGNOSIS: Osteoporosis based on the lowest T-score value of -2.9 in the forearm radius 33% applying World Health Organization criteria. 2. 10-YEAR FRACTURE RISK PREDICTION, FRAX: According to the guidelines, FRAX calculation should only be performed on patients in the osteopenia bone density category. Therefore, FRAX was not performed on this patient. 3. Treatment Recommendations: NOF guidelines recommend consideration for treatment in postmenopausal women and men age 50 and older presenting with the following: -A hip or vertebral (clinical or morphometric) fracture. -T-score less than or equal to -2.5 at the femoral neck or spine after appropriate evaluation to exclude secondary causes. -Low bone mass at the hip or spine and a 10-year fracture probability by FRAX of greater than or equal to 3% for hip fracture or greater than or equal to 20% for major osteoporotic fracture based on the [place] adapted WHO algorithm. 4. Other Recommendations: All treatment decisions require clinical judgment and consideration of individual patient factors, including patient preferences, comorbidities, previous drug use, risk factors not captured in the FRAX model (e.g. frailty, falls, vitamin D deficiency, increased bone turnover, interval significant decline in bone density) and possible under or overestimation of fracture risk by FRAX. Additional medical evaluation for secondary cause of low bone mineral density may be appropriate. FUTURE SCAN RECOMMENDATION: People with diagnosed cases of osteoporosis or at high risk for fracture should have regular bone mineral density tests. For patients eligible for Medicare, routine testing is allowed once every 2 years. The testing frequency can be increased to one year for patients who have rapidly progressing disease, those who are receiving or discontinuing medical therapy to restore bone mass, or have additional risk factors.
== END 2023-09-23 10:25 | disposition home or self-care (01) ==
LOC: HO.MAMMO 10:24
PROVIDERS: PCP Internal Medicine; Visit Provider Internal Medicine Endocrinology, Diabetes & Metabolism
DX: M81.0 Age-related osteoporosis without current pathological fracture (principal)
CPT/HCPCS: 77081

== ENCOUNTER 2023-09-24 14:55 | Outpatient (AMB) | payer MEDICARE, OTHER, SELFPAY ==
--- NOTE | 2023-09-24 15:02 | A.OFFPC_ITS ---
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: No Accompanied by: Self / Same As Patient Allergies cephalexin [Keflex] Allergy (Intermediate, Verified 09/24/23 15:20) Unknown tetracycline [Tetracycline] Allergy (Intermediate, Verified 09/24/23 15:20) TONGUE SWOLLEN Medication List - Last Reconciled 09/24/23 by Shirin Duron MD acetaminophen ER (Tylenol Arthritis Pain) 1,300 mg (2 x 650 mg) PO Q6H 30 days amlodipine 5 mg PO DAILY 90 days aspirin (Adult Aspirin Regimen) 81 mg PO DAILY carvedilol 12.5 mg PO BID 90 days chlorthalidone 25 mg PO DAILY 90 days denosumab (Prolia) 60 mg subcut [id number] docusate sodium (Colace) 100 mg PO DAILY ezetimibe 10 mg PO DAILY 90 days ferrous sulfate 325 mg PO DAILY lansoprazole 30 mg PO DAILY@0630 losartan 100 mg PO DAILY 90 days rosuvastatin 10 mg PO DAILY 90 days tiotropium bromide 1.25 mcg/actuation (Spiriva Respimat) 2 puffs inhalation BEDTIME 30 days tolterodine ER 4 mg PO DAILY vibegron (Gemtesa) 75 mg PO DAILY 90 days walker Pediatric walker Tobacco use date assessed: 06/04/23 Fall risk assessment: No Falls in past year Last assessed Fall Risk: 09/24/23 Dental Screening Dental Screen Date: 06/19/23 HPI HPI Comments History of Present Illness Details This is an 88-year-old female with hypertension, COPD, dyslipidemia, osteoporosis, GERD, iron-deficiency anemia and history of right hip osteoarthritis that came today as hospital discharge [facility] after having total right hip arthroplasty dated 08/21/2023. She had anemia that required blood transfusion and this is follow by Hematology-Oncology which already saw her and place her in ferrous sulfate 325 mg then she has tolerated well this time. She did had DVT prophylaxis after arthroplasty. At 1st she was having right hip pain while walking but not anymore and walks well with a walker and even can take a few steps without the walker. Blood pressure stable. COPD well control and use rescue inhaler once a month or less. On statins for dyslipidemia. On Prolia for osteoporosis. GERD stable with PPIs which she is aware she can not take PPIs with ferrous sulfate because it will decrease the absorption of the iron. No chest pain or shortness on breath. Doing well. [facility] Medical History (Updated 09/24/23 @ 16:23 by Shirin Duron MD) Hospital discharge follow-up Acute leg pain Facial paresthesia Swelling of lower extremity Right leg swelling Hypertensive urgency Constipation Frequent UTI Edema of left lower leg Leg cramping Primary hypertension Uncontrolled hypertension Left hip pain Left-sided weakness Left sided sciatica Adult general medical exam Screening for breast cancer Osteoarthritis of right hip Hospital discharge follow-up Vitamin D deficiency Hypercalcemia Multiple lacunar infarcts Hearing loss Urge urinary incontinence GERD (gastroesophageal reflux disease) COPD (chronic obstructive pulmonary disease) Hypertension Dyslipidemia Hypercalcemia Osteoporosis History of ductal carcinoma in situ (DCIS) of breast Surgical History (Updated 09/24/23 @ 16:23 by Shirin Duron MD) History of colonoscopy History of lumpectomy of right breast History of pubovaginal sling H/O right inguinal hernia repair Family History Father Heart failure CVD (cardiovascular disease) Mother Breast cancer Social History Household Members: None Housing: House Do you presently have visiting nurse or other home services: No Alcohol intake: former Patient Tobacco Use Status: Former Tobacco user Tobacco use type: Cigarette e-Cigarette/Vaping Use: Never Used Second Hand Smoke Exposure: No Advance Directives Date on File: 10/19/21 service: No Current occupational status: retired Cognitive needs: Yes (CANE) Hearing needs: Yes (hearing aide) Vision needs: No (glaases) Questionnaire Thrive Questionnaire Date Thrive assessed: 06/04/23 Currently or been in a relationship where the following occur: no concerns reported THRIVE Score: 0 LEMUEL-7 AMB Questionnaire LEMUEL-7 Date LEMUEL - 7 assessed: 06/04/23 Source: Developed by Drs. Lewis Lopez, Dixie Sharma, Clay Stevenson and colleagues, with an educational chucky from [employer]. Review of Systems Const All systems reviewed & are unremarkable except as noted in HPI and below Eyes Reports no additional complaints, Denies change in vision and Denies other visual disturbances Card Denies chest pain at rest, Denies chest pain with activity, Denies edema, Denies irregular heart rhythm, Denies claudication, Denies dyspnea, Denies dyspnea on exertion, Denies orthopnea, Denies paroxysmal nocturnal dyspnea and Denies slow heart rate Resp Denies cough, Denies dyspnea and Denies dyspnea on exertion Physical exam (Primary Care) Vital Signs: Last Vital Signs BP 122/60 09/24/23 15:04 BMI result Body Mass Index 20.8 Tobacco/Smoking Status: Tobacco use Status Tobacco use date assessed 06/04/23 09/24/23 15:03 Patient Tobacco Use Status Former Tobacco user 09/24/23 15:03 Tobacco use type Cigarette 09/24/23 15:03 e-Cigarette/Vaping Use Never Used 09/24/23 15:03 Thrive Assessment: Date of Thrive Assessment Date Thrive assessed 06/04/23 09/24/23 15:03 Currently or been in a relationship where the following occur: no concerns reported Const Limitations: ambulation with walker Resp Auscultation: clear to auscultation bilaterally Cardio Jugular venous distension: no JVD Rate: regular rate Rhythm: regular rhythm Heart sounds: S1 normal heart sound present and S2 normal heart sound present Extrem General: Yes full ROM Assessment and Plan Assessment & Plan (1) Hospital discharge follow-up: Code(s): Z09 - Encounter for follow-up examination after completed treatment for conditions other than malignant neoplasm Plan: [facility]charge date [facility] after total right hip arthroplasty. Walks with no pain with a walker. Still taking physical therapy at home. (2) S/P total right hip arthroplasty: Code(s): Z96.641 - Presence of right artificial hip joint Plan: Able to walk with a walker with no pain. Continue taking physical therapy at home. (3) COPD (chronic obstructive pulmonary disease): Code(s): J44.9 - Chronic obstructive pulmonary disease, unspecified Qualifiers: COPD type: unspecified COPD Qualified Code(s): J44.9 - Chronic obstructive pulmonary disease, unspecified Plan: Use rescue inhaler as needed. Continue Spiriva. (4) GERD (gastroesophageal reflux disease): Code(s): K21.9 - Gastro-esophageal reflux disease without esophagitis Qualifiers: Esophagitis presence: esophagitis presence not specified Qualified Code(s): K21.9 - Gastro-esophageal reflux disease without esophagitis Plan: Continue PPIs. (5) Hypertension: Code(s): I10 - Essential (primary) hypertension Qualifiers: Hypertension type: essential hypertension Qualified Code(s): I10 - Essential (primary) hypertension Plan: Continue losartan. Blood pressure goal is equal or less than 130/80. (6) Dyslipidemia: Code(s): E78.5 - Hyperlipidemia, unspecified (7) Osteoporosis: Code(s): M81.0 - Age-related osteoporosis without current pathological fracture Qualifiers: Osteoporosis type: age-related Presence of current pathological fracture: without current pathological fracture Qualified Code(s): M81.0 - Age- related osteoporosis without current pathological fracture Plan: Continue Prolia. (8) Iron deficiency anemia: Code(s): D50.9 - Iron deficiency anemia, unspecified Plan: Continue ferrous sulfate. Follow-up with Hematology-Oncology. Orders: Orders IRON PROFILE 2 Months D64.9 - Anemia, unspecified Lipid Panel 2 Months E78.5 - Hyperlipidemia, unspecified Complete Blood Count Auto Diff 2 Months D64.9 - Anemia, unspecified Comprehensive [place]. Panel Fast 2 Months J44.9 - Chronic obstructive pulmonary disease, unspecified Vitamin D 25-OH Total 2 Months E55.9 - Vitamin D deficiency, unspecified Coding Level of Care Code TCM Mod MDM <= 14 Days Complex EM visit Add On G2211 Diagnoses Hospital discharge follow-up Z09 S/P total right hip arthroplasty Z96.641 Chronic obstructive pulmonary disease, unspecified COPD type J44.9 COPD type: unspecified COPD Gastroesophageal reflux disease, unspecified whether esophagitis present K21.9 Esophagitis presence: esophagitis presence not specified Essential hypertension I10 Hypertension type: essential hypertension Dyslipidemia E78.5 Age-related osteoporosis without current pathological fracture M81.0 Osteoporosis type: age-related Presence of current pathological fracture: without current pathological fracture Iron deficiency anemia D50.9 Time Spent (min) 28
[2023-09-24 15:04] VITALS: BP 122/60; BMI 20.8
== END 2023-09-24 15:36 | disposition home or self-care (01) ==
PROVIDERS: PCP Internal Medicine; Visit Provider Internal Medicine
DX: J44.9 Chronic obstructive pulmonary disease, unspecified (principal); Z09 Encounter for follow-up examination after completed treatment for conditions other than malignant neoplasm; Z96.641 Presence of right artificial hip joint; K21.9 Gastro-esophageal reflux disease without esophagitis; I10 Essential (primary) hypertension; E78.5 Hyperlipidemia, unspecified; M81.0 Age-related osteoporosis without current pathological fracture; D50.9 Iron deficiency anemia, unspecified
CPT/HCPCS: 99214; G2211

== ENCOUNTER 2023-09-25 11:02 | Outpatient (AMB) | payer MEDICARE, OTHER, SELFPAY ==
[2023-09-25 11:04] VITALS: BP 130/44; PULSE 66; BMI 20.9
--- NOTE | 2023-09-25 11:04 | MHC.OFFVIS ---
Vital Signs 09/25/23 11:04 Height 4 ft 9 in Weight 96 lb 12.527 oz BMI 20.9 BP 130/44 L Blood Pressure Location Lt brachial Position Sitting Pulse 66 Pulse Source Pulse Oximeter Intake Visit Reasons: f/u osteoporosis/confirmed Intake Note: Patient present today for Osteoporosis follow up visit. 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: No Accompanied by: Self / Same As Patient Allergies cephalexin [Keflex] Allergy (Intermediate, Verified 09/25/23 11:11) Unknown tetracycline [Tetracycline] Allergy (Intermediate, Verified 09/25/23 11:11) TONGUE SWOLLEN Medication List - Last Reconciled 09/25/23 by Lewis Corbett MD acetaminophen ER (Tylenol Arthritis Pain) 1,300 mg (2 x 650 mg) PO Q6H 30 days amlodipine 5 mg PO DAILY 90 days aspirin (Adult Aspirin Regimen) 81 mg PO DAILY carvedilol 12.5 mg PO BID 90 days chlorthalidone 25 mg PO DAILY 90 days denosumab (Prolia) 60 mg subcut [id number] docusate sodium (Colace) 100 mg PO DAILY ezetimibe 10 mg PO DAILY 90 days ferrous sulfate 325 mg PO DAILY lansoprazole 30 mg PO DAILY@0630 losartan 100 mg PO DAILY 90 days rosuvastatin 10 mg PO DAILY 90 days tiotropium bromide 1.25 mcg/actuation (Spiriva Respimat) 2 puffs inhalation BEDTIME 30 days tolterodine ER 4 mg PO DAILY vibegron (Gemtesa) 75 mg PO DAILY 90 days walker Pediatric walker HPI Comments Details: 88 YO Female with PMHx Osteoporosis is seen in F/U for the same. She was previously followed by Dr. Che and then Dr. Khan. She has a longstanding history of hypercalcemia. It is unclear if a diagnosis of hyperparathyroidism was ever established. She does remain on HCTZ low dose currently. She has been receiving Prolia injections intermittently since 2015. Her most recent Prolia was 05/23/2022. She tolerated this well. First diagnosed with Osteoporosis in 2007. Received treatment in the past with Fosamax for approximately 5 years. She tolerated this well, but it was stopped and she was given a drug holiday. She then began Prolia with Dr. Che, and had her first injection 11/22/2015. Dosing appears to have been intermittent since then, and it is unclear how many doses she has received. Her last dose was 04/25/2021. Most recent DXA reveals improvements of 4% in the spine, 12% in the hip. No history of pathologic fracture or ONJ. Has 1 servings of dietary calcium per day in the form of yogurt. She does not take a Calcium or Vitamin D supplement. Denies ever using PPI, anticoagulant, antiepileptic or glucocorticoid medication. Does no scheduled exercise. 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 Menses were regular. . Menopause was age 50. She did not use HRT. Denies history of Kidney stones: Family history of Osteoporosis in her Mother. UTD on dental cleanings and sees dentist every 6 months. She had a root canal approximately 3 months ago. DXA: 07/10/21 FINDINGS: AP SPINE L1-L4: Current: BMD 0.822 g/cm2, Z-score -0.6, T-score -3.0, osteoporosis, 3.8% increase from previous, 7.2% increase from baseline (<5% change is not significant). Prior: BMD 0.792 g/cm2. Baseline: BMD 0.767 g/cm2. LEFT FEMUR, NECK: Current: BMD 0.780 g/cm2, Z-score 0.9, T-score -1.9, osteopenia. Prior: BMD 0.713 g/cm2. Baseline: BMD 0.756 g/cm2. LEFT FEMUR, TOTAL: Current: BMD 0.813 g/cm2, Z-score 1.1, T-score -1.5, osteopenia, 12.0% increase from previous, 3.7% increase from baseline (<5% change is not significant). Prior: BMD 0.726 g/cm2. Baseline: BMD 0.784 g/cm2. LEFT FOREARM RADIUS 33%: Current: BMD 0.691 g/cm2, Z-score 1.2, T-score -2.1, osteopenia, 1.6% increase from baseline (<5% change is not significant). Baseline: BMD 0.680 g/cm2. Labs: Laboratory Tests 11/06/22 11/06/22 08:38 08:38 Creatinine 0.77 Estimated GFR > 60 25-OH Vitamin D Total 41.2 PTH Intact 55 Calcium (PTH Intact) 9.4 Not fragility fx since last visit . Still receiving Prolia PFSH Medical History (Updated 09/24/23 @ 16:23 by Shirin Duron MD) Hospital discharge follow-up Acute leg pain Facial paresthesia Swelling of lower extremity Right leg swelling Hypertensive urgency Constipation Frequent UTI Edema of left lower leg Leg cramping Primary hypertension Uncontrolled hypertension Left hip pain Left-sided weakness Left sided sciatica Adult general medical exam Screening for breast cancer Osteoarthritis of right hip Hospital discharge follow-up Vitamin D deficiency Hypercalcemia Multiple lacunar infarcts Hearing loss Urge urinary incontinence GERD (gastroesophageal reflux disease) COPD (chronic obstructive pulmonary disease) Hypertension Dyslipidemia Hypercalcemia Osteoporosis History of ductal carcinoma in situ (DCIS) of breast Surgical History History of right hip replacement History of colonoscopy History of lumpectomy of right breast History of pubovaginal sling H/O right inguinal hernia repair Family History Father Heart failure CVD (cardiovascular disease) Mother Breast cancer Social History Household Members: None Housing: House Do you presently have visiting nurse or other home services: No Alcohol intake: former Patient Tobacco Use Status: Former Tobacco user Tobacco use type: Cigarette e-Cigarette/Vaping Use: Never Used Second Hand Smoke Exposure: No Advance Directives Date on File: 10/19/21 service: No Current occupational status: retired Cognitive needs: Yes (CANE) Hearing needs: Yes (hearing aide) Vision needs: No (glaases) Physical Exam Vital Signs: Last Vital Signs Pulse 66 09/25/23 11:04 BP 130/44 L 09/25/23 11:04 BMI result Body Mass Index 20.9 Assessment & Plan Assessment & Plan (1) Osteoporosis: Code(s): M81.0 - Age-related osteoporosis without current pathological fracture Category: Medical Qualifiers: Osteoporosis type: age-related Presence of current pathological fracture: without current pathological fracture Qualified Code(s): M81.0 - Age-related osteoporosis without current pathological fracture Plan: This is a 88-year-old white female with a history of osteoporosis with secondary workup revealing? Primary hyperparathyroidism which is now resolved. She was treated with a bisphosphonate namely alendronate for 5 years and then transition to Prolia. Plan is to review the DEXA bone density when is available and make a decision as to whether to transition the patient back to bisphosphonate or not and stay on the Prolia Coding Level of Care Code Est Pt Level 3 (38738) Diagnoses Age-related osteoporosis without current pathological fracture M81.0 Osteoporosis type: age-related Presence of current pathological fracture: without current pathological fracture
== END 2023-09-25 11:25 | disposition home or self-care (01) ==
PROVIDERS: PCP Internal Medicine; Visit Provider Internal Medicine Endocrinology, Diabetes & Metabolism
DX: M81.0 Age-related osteoporosis without current pathological fracture (principal)
CPT/HCPCS: 99213

== ENCOUNTER → 2023-09-25 11:02 | Outpatient (BNVA) | payer MEDICARE, OTHER, SELFPAY | PROVIDERS: PCP Internal Medicine; Visit Provider Internal Medicine Endocrinology, Diabetes & Metabolism | DX: M81.0 Age-related osteoporosis without current pathological fracture (principal) | CPT/HCPCS: 99212 ==

== ENCOUNTER 2023-09-26 10:14 | Outpatient (REF) | payer MEDICARE, OTHER, SELFPAY ==
[2023-09-26 11:12] LABS: MANUAL DIFF FLAG NO
[2023-09-26 11:16] LABS: Basophils Percent Auto 0.4 % (0-2); Eosinophils Absolute Auto 0.1 X10*3/uL (0.0-0.4); Eosinophils Percent Auto 1.7 % (0-4); Imm Gran Abs Auto 0.01 X10*3/uL (0.00-0.03); Imm Gran Pct Auto 0.2 % (0.0-0.4); Lymphocytes Absolute Auto 1.1 X10*3/uL (1.2-4.9); Lymphocytes Percent Auto 20.3 % (20-40); Mean Corpuscular HGB Conc 31.3 g/dl (31.0-35.0); Mean Corpuscular Hemoglobin 30.6 pg (27.0-33.0); Mean Corpuscular Volume 97.9 fL (80.0-98.0); Mean Platelet Volume 10.1 fL (9.4-12.3); Monocytes Absolute Auto 0.6 X10*3/uL (0.1-1.2); Monocytes Percent Auto 10.3 % (2-11); Neutrophils Absolute Auto 3.6 x10*3/uL (2.0-8.3); Neutrophils Percent Auto 67.1 % (45-73); Platelet Count 281 X10*3/uL (160-400); Red Blood Count 3.27 X10*6/uL (4.20-5.50); Red Cell Distribution Width 16.8 % (11.0-16.0); White Blood Count 5.4 X10*3/uL (4.8-10.8)
== END 2023-09-26 10:15 | disposition home or self-care (01) ==
LOC: HO.HVNA 10:14
PROVIDERS: Visit Provider Internal Medicine
DX: D64.9 Anemia, unspecified (principal)
CPT/HCPCS: 36415; 85025

== ENCOUNTER 2023-09-29 12:16 | Outpatient (REF) | payer MEDICARE, OTHER, SELFPAY ==
[2023-09-29 12:34] LABS: Hematocrit 30.3 % (37.0-47.0); Hemoglobin 9.6 g/dl (12.0-16.0); Mean Corpuscular HGB Conc 31.7 g/dl (31.0-35.0); Mean Corpuscular Hemoglobin 30.6 pg (27.0-33.0); Mean Corpuscular Volume 96.5 fL (80.0-98.0); Mean Platelet Volume 10.2 fL (9.4-12.3); Platelet Count 303 X10*3/uL (160-400); Red Blood Count 3.14 X10*6/uL (4.20-5.50); Red Cell Distribution Width 16.9 % (11.0-16.0); White Blood Count 5.7 X10*3/uL (4.8-10.8)
== END 2023-09-29 12:17 | disposition home or self-care (01) ==
LOC: HO.HVNA 12:16
PROVIDERS: Visit Provider Internal Medicine
DX: D64.9 Anemia, unspecified (principal)
CPT/HCPCS: 36415; 85027

== ENCOUNTER 2023-11-04 11:03 | Outpatient (AMB) | payer MEDICARE, OTHER, SELFPAY ==
[2023-11-04 11:04] VITALS: BP 140/50; PULSE 78; BMI 20.7
--- NOTE | 2023-11-04 11:04 | MHC.OFFVIS ---
Vital Signs 11/04/23 11:04 Height 4 ft 9 in Weight 95 lb 7.362 oz BMI 20.7 BP 140/50 H Blood Pressure Location Lt brachial Position Sitting Pulse 78 Pulse Source Pulse Oximeter Intake Visit Reasons: f/u osteoporosis-confirmed Intake Note: Patient present today for Osteoporosis follow up visit. Traffic Court Referee Required: No Accompanied by: Self / Same As Patient Allergies cephalexin [Keflex] Allergy (Intermediate, Verified 11/04/23 11:09) Unknown tetracycline [Tetracycline] Allergy (Intermediate, Verified 11/04/23 11:09) TONGUE SWOLLEN Medication List - Last Reconciled 11/04/23 by Lewis Corbett MD acetaminophen ER (Tylenol Arthritis Pain) 1,300 mg (2 x 650 mg) PO Q6H 30 days amlodipine 5 mg PO DAILY 90 days aspirin (Adult Aspirin Regimen) 81 mg PO DAILY carvedilol 12.5 mg PO BID 90 days chlorthalidone 25 mg PO DAILY 90 days denosumab (Prolia) 60 mg subcut [id number] docusate sodium (Colace) 100 mg PO DAILY ezetimibe 10 mg PO DAILY 90 days ferrous sulfate 325 mg PO DAILY lansoprazole 30 mg PO DAILY@0630 losartan 100 mg PO DAILY 90 days rosuvastatin 10 mg PO DAILY 90 days sulfamethoxazole-trimethoprim 800-160 mg (Bactrim DS) 1 tab PO BID 7 days tiotropium bromide 1.25 mcg/actuation (Spiriva Respimat) 2 puffs inhalation BEDTIME 30 days tolterodine ER 4 mg PO DAILY vibegron (Gemtesa) 75 mg PO DAILY 90 days walker Pediatric walker HPI Comments Details: 88 YO Female with PMHx Osteoporosis is seen in F/U for the same. She was previously followed by Dr. Che and then Dr. Khan. She has a longstanding history of hypercalcemia. It is unclear if a diagnosis of hyperparathyroidism was ever established. . She has been receiving Prolia injections intermittently since 2015. Her most recent Prolia was 05/23/2022. She tolerated this well. First diagnosed with Osteoporosis in 2007. Received treatment in the past with Fosamax for approximately 5 years. She tolerated this well, but it was stopped and she was given a drug holiday. She then began Prolia with Dr. Che, and had her first injection 11/22/2015. Dosing appears to have been intermittent since then, and it is unclear how many doses she has received. Her last dose was 05/2023 No history of pathologic fracture or ONJ. Has 1 servings of dietary calcium per day in the form of yogurt. She does not take a Calcium or Vitamin D supplement. Denies ever using PPI, anticoagulant, antiepileptic or glucocorticoid medication. Does no scheduled exercise. 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 Menses were regular. . Menopause was age 50. She did not use HRT. Denies history of Kidney stones: Family history of Osteoporosis in her Mother. UTD on dental cleanings and sees dentist every 6 months. She had a root canal approximately 3 months ago. DXA: 07/10/21 FINDINGS: AP SPINE L1-L4: Current: BMD 0.822 g/cm2, Z-score -0.6, T-score -3.0, osteoporosis, 3.8% increase from previous, 7.2% increase from baseline (<5% change is not significant). Prior: BMD 0.792 g/cm2. Baseline: BMD 0.767 g/cm2. LEFT FEMUR, NECK: Current: BMD 0.780 g/cm2, Z-score 0.9, T-score -1.9, osteopenia. Prior: BMD 0.713 g/cm2. Baseline: BMD 0.756 g/cm2. LEFT FEMUR, TOTAL: Current: BMD 0.813 g/cm2, Z-score 1.1, T-score -1.5, osteopenia, 12.0% increase from previous, 3.7% increase from baseline (<5% change is not significant). Prior: BMD 0.726 g/cm2. Baseline: BMD 0.784 g/cm2. LEFT FOREARM RADIUS 33%: Current: BMD 0.691 g/cm2, Z-score 1.2, T-score -2.1, osteopenia, 1.6% increase from baseline (<5% change is not significant). Baseline: BMD 0.680 g/cm2. Labs: Laboratory Tests 11/06/22 11/06/22 08:38 08:38 Creatinine 0.77 Estimated GFR > 60 25-OH Vitamin D Total 41.2 PTH Intact 55 Calcium (PTH Intact) 9.4 Not fragility fx since last visit . Still receiving Prolia Last DEXA 09/2023 FINDINGS: AP SPINE L1-L4: Current: BMD 0.858 g/cm2, Z-score -0.3, T-score -2.7, osteoporosis, 4.4% increase from previous, 11.9% increase from baseline (<5% change is not significant). Prior: BMD 0.822 g/cm2. Baseline: BMD 0.767 g/cm2. LEFT FOREARM RADIUS 33%: BMD 0.623 g/cm2, Z-score 0.6, T-score -2.9, osteoporosis, 9.8% decrease from previous, 8.4% decrease from baseline (<5% change is not significant). Prior: BMD 0.691 g/cm2. Baseline 06/29/2013: BMD 0.680 g/cm2. LEFT FEMUR, NECK: Current: BMD 0.741 g/cm2, Z-score 0.7, T-score -2.1, osteopenia. Prior: BMD 0.780 g/cm2. Baseline: BMD 0.756 g/cm2. LEFT FEMUR, TOTAL: Current: BMD 0.783 g/cm2, Z-score 1.0, T-score -1.8, osteopenia, 3.7% decrease from previous, 0.1% decrease from baseline (<5% change is not significant). Prior: BMD 0.813 g/cm2. Baseline: BMD 0.784 g/cm2. [facility] Medical History (Updated 09/24/23 @ 16:23 by Shirin Duron MD) Hospital discharge follow-up Acute leg pain Facial paresthesia Swelling of lower extremity Right leg swelling Hypertensive urgency Constipation Frequent UTI Edema of left lower leg Leg cramping Primary hypertension Uncontrolled hypertension Left hip pain Left-sided weakness Left sided sciatica Adult general medical exam Screening for breast cancer Osteoarthritis of right hip Hospital discharge follow-up Vitamin D deficiency Hypercalcemia Multiple lacunar infarcts Hearing loss Urge urinary incontinence GERD (gastroesophageal reflux disease) COPD (chronic obstructive pulmonary disease) Hypertension Dyslipidemia Hypercalcemia Osteoporosis History of ductal carcinoma in situ (DCIS) of breast Surgical History History of right hip replacement History of colonoscopy History of lumpectomy of right breast History of pubovaginal sling H/O right inguinal hernia repair Family History Father Heart failure CVD (cardiovascular disease) Mother Breast cancer Social History Household Members: None Housing: House Do you presently have visiting nurse or other home services: No Alcohol intake: former Patient Tobacco Use Status: Former Tobacco user Tobacco use type: Cigarette e-Cigarette/Vaping Use: Never Used Second Hand Smoke Exposure: No Advance Directives Date on File: 10/19/21 service: No Current occupational status: retired Cognitive needs: Yes (CANE) Hearing needs: Yes (hearing aide) Vision needs: No (glaases) Physical Exam Vital Signs: Last Vital Signs Pulse 78 11/04/23 11:04 BP 140/50 H 11/04/23 11:04 BMI result Body Mass Index 20.7 Assessment & Plan Assessment & Plan (1) Osteoporosis: Code(s): M81.0 - Age-related osteoporosis without current pathological fracture Category: Medical Qualifiers: Osteoporosis type: age-related Presence of current pathological fracture: without current pathological fracture Qualified Code(s): M81.0 - Age-related osteoporosis without current pathological fracture Plan: This is a 88-year-old white female with a history of osteoporosis with secondary workup revealing? Primary hyperparathyroidism which is now resolved. She was treated with a bisphosphonate namely alendronate for 5 years and then transition to Prolia which she has received for 8 years. Recent DEXA showed stability in the bone density Plan is to continue the Prolia injections. We did discuss the idea of transitioning to alendronate 1 year's time versus continuing the Prolia and the patient has decided to continue the Prolia for full 10 years course Coding Level of Care Code Est Pt Level 3 (50065) Diagnoses Age-related osteoporosis without current pathological fracture M81.0 Osteoporosis type: age-related Presence of current pathological fracture: without current pathological fracture
== END 2023-11-04 11:35 | disposition home or self-care (01) ==
PROVIDERS: PCP Internal Medicine; Visit Provider Internal Medicine Endocrinology, Diabetes & Metabolism
DX: M81.0 Age-related osteoporosis without current pathological fracture (principal)
CPT/HCPCS: 99213

== ENCOUNTER → 2023-11-04 11:03 | Outpatient (BNVA) | payer MEDICARE, OTHER, SELFPAY | PROVIDERS: PCP Internal Medicine; Visit Provider Internal Medicine Endocrinology, Diabetes & Metabolism | DX: M81.0 Age-related osteoporosis without current pathological fracture (principal) | CPT/HCPCS: 99212 ==

== ENCOUNTER 2023-11-22 07:58 | Outpatient (REF) | payer MEDICARE, OTHER, SELFPAY ==
[2023-11-22 11:22] LABS: MANUAL DIFF FLAG NO
[2023-11-22 11:39] LABS: Basophils Percent Auto 0.2 % (0-2); Eosinophils Absolute Auto 0.1 X10*3/uL (0.0-0.4); Eosinophils Percent Auto 2.1 % (0-4); Imm Gran Abs Auto 0.02 X10*3/uL (0.00-0.03); Imm Gran Pct Auto 0.4 % (0.0-0.4); Lymphocytes Percent Auto 19.4 % (20-40); Mean Corpuscular HGB Conc 31.8 g/dl (31.0-35.0); Mean Corpuscular Hemoglobin 30.4 pg (27.0-33.0); Mean Corpuscular Volume 95.4 fL (80.0-98.0); Monocytes Absolute Auto 0.6 X10*3/uL (0.1-1.2); Monocytes Percent Auto 11.5 % (2-11); Neutrophils Absolute Auto 3.5 x10*3/uL (2.0-8.3); Neutrophils Percent Auto 66.4 % (45-73); Platelet Count 291 X10*3/uL (160-400); Red Blood Count 3.03 X10*6/uL (4.20-5.50); Red Cell Distribution Width 13.7 % (11.0-16.0); White Blood Count 5.2 X10*3/uL (4.8-10.8)
[2023-11-22 11:52] LABS: Alanine Aminotransferase 13 U/L (0-31); Albumin Level 3.5 g/dL (3.5-5.0); Alkaline Phosphatase 59 U/L (39-117); Anion Gap 13 (12-20); Aspartate Amino Transferase 16 U/L (5-31); Bilirubin Total 0.5 mg/dL (0.0-1.0); Blood Urea Nitrogen 40 mg/dL (9-16); Calcium 9.1 mg/dL (8.4-10.2); Carbon Dioxide 23 mmol/L (22-29); Chloride 111 mmol/L (96-108); Cholesterol 119 mg/dL (<200); Estimated Glomerular Filt Rate > 60; Glucose Fasting 95 mg/dL (60-99); HDL Cholesterol 57 mg/dL (>40); Iron 68 mcg/dL (30-160); LDL Cholesterol Calculated 50 mg/dL (<100); Percent Iron Saturation 24 % (15-50); Sodium 143 mmol/L (135-145); Total Iron Binding Capacity 280 mcg/dL (228-428); Total Protein 6.3 g/dL (6.5-8.0); Triglycerides 61 mg/dL (<150); Unsaturated Iron Binding 212 ug/dL
[2023-11-22 11:53] LABS: Hemoglobin 9.2 g/dl (12.0-16.0)
[2023-11-22 11:54] LABS: Hematocrit 28.9 % (37.0-47.0)
[2023-11-22 12:04] LABS: Vitamin D 25-OH Total 49.5 ng/mL (>30)
== END 2023-11-22 07:59 | disposition home or self-care (01) ==
LOC: HO.HMGCLDS 07:58
PROVIDERS: PCP Internal Medicine; Visit Provider Internal Medicine Endocrinology, Diabetes & Metabolism
DX: J44.9 Chronic obstructive pulmonary disease, unspecified (principal); D64.9 Anemia, unspecified; E78.5 Hyperlipidemia, unspecified; E55.9 Vitamin D deficiency, unspecified
CPT/HCPCS: 36415; 80053; 80061; 82306; 83540; 85025

== ENCOUNTER 2023-11-25 10:55 | Outpatient (AMB) | payer MEDICARE, OTHER, SELFPAY ==
--- NOTE | 2023-11-25 11:20 | AM.OFFVISNUR ---
Intake Visit Reasons: Prolia Injection Allergies cephalexin [Keflex] Allergy (Intermediate, Verified 11/04/23 11:09) Unknown tetracycline [Tetracycline] Allergy (Intermediate, Verified 11/04/23 11:09) TONGUE SWOLLEN Office Meds Prolia 60 mg/mL subcutaneous syringe Performing Provider: Lewis Corbett MD Performing Location: [facility] Endocrinology Administered by: Liliana Verde LPN on 11/25/23 11:20 Dose Route Admin Location Dispensed Lot Number Expiration Date [facility] Fishing Tackle Repairer 60 mg subcut Left upper arm 1 mL [id number] 03/20/26 [facility] Assessment & Plan Assessment & Plan Orders: Orders Calcium 11/22/23 M81.0 - Age-related osteoporosis without current pathological fracture AMB Denosumab Injection Practice Supplied Today M81.0 - Age-related osteoporosis without current pathological fracture Basic Metabolic Panel Fasting 11/22/23 M81.0 - Age-related osteoporosis without current pathological fracture Albumin Level 11/22/23 M81.0 - Age-related osteoporosis without current pathological fracture Medications: New Prolia (denosumab) 60 mg subcut ONCE 1 mL 0RF NS M81.0 - Age-related osteoporosis without current pathological fracture
== END 2023-11-25 11:21 | disposition home or self-care (01) ==
PROVIDERS: PCP Internal Medicine; Visit Provider Internal Medicine Endocrinology, Diabetes & Metabolism
DX: M81.0 Age-related osteoporosis without current pathological fracture (principal)

== ENCOUNTER → 2023-11-25 10:55 | Outpatient (BNVA) | payer MEDICARE, OTHER, SELFPAY | PROVIDERS: PCP Internal Medicine; Visit Provider Internal Medicine Endocrinology, Diabetes & Metabolism | DX: M81.0 Age-related osteoporosis without current pathological fracture (principal) | CPT/HCPCS: 96372; J0897 ==

== ENCOUNTER 2023-12-11 14:21 | Outpatient (AMB) | payer MEDICARE, OTHER, SELFPAY ==
[2023-12-11 14:27] VITALS: BP 136/58; BMI 20.6
--- NOTE | 2023-12-11 14:27 | A.OFFVIS_ITS ---
Intake Vital Signs 12/11/23 14:27 Height 4 ft 9 in Weight 95 lb 2 oz BMI 20.6 BP 136/58 L Blood Pressure Location Lt brachial Position Sitting Intake Visit Reasons: ISAI G0439 Intake Note: Patient here for a subsequent annual wellness visit Automotive Technician Required: No Accompanied by: Self / Same As Patient Allergies cephalexin [Keflex] Allergy (Intermediate, Verified 12/11/23 14:42) Unknown tetracycline [Tetracycline] Allergy (Intermediate, Verified 12/11/23 14:42) TONGUE SWOLLEN Medication List - Last Reconciled 12/11/23 by Shirin Duron MD acetaminophen ER (Tylenol Arthritis Pain) 1,300 mg (2 x 650 mg) PO Q6H 30 days amlodipine 5 mg PO DAILY 90 days aspirin (Adult Aspirin Regimen) 81 mg PO DAILY carvedilol 12.5 mg PO BID 90 days chlorthalidone 25 mg PO DAILY 90 days denosumab (Prolia) 60 mg subcut [id number] docusate sodium (Colace) 100 mg PO DAILY ezetimibe 10 mg PO DAILY 90 days ferrous sulfate 325 mg PO DAILY lansoprazole 30 mg PO DAILY@0630 losartan 100 mg PO DAILY 90 days rosuvastatin 10 mg PO DAILY 90 days tiotropium bromide 1.25 mcg/actuation (Spiriva Respimat) 2 puffs inhalation BEDTIME 30 days tolterodine ER 4 mg PO DAILY vibegron (Gemtesa) 75 mg PO DAILY 90 days walker Pediatric walker HPI HPI Comments History of Present Illness Details This is an 88-year-old female with multiple lacunar infarcts and COPD that comes for her Medicare wellness exam. She walks with a cane for gait stability but has no residual deficit. COPD stable and she use rescue inhaler less than once a month. [facility] handed to patient. [place] of care was updated. No chest pain or shortness on breath. She complains of a rash in the face and arms in Flex[place]il area that is slightly itchy and maculopapular. Will start her on prednisone pack. [facility] Medical History (Updated 12/11/23 @ 15:12 by Shirin Duron MD) Hospital discharge follow-up Acute leg pain Facial paresthesia Swelling of lower extremity Right leg swelling Hypertensive urgency Constipation Frequent UTI Edema of left lower leg Leg cramping Primary hypertension Uncontrolled hypertension Left hip pain Left-sided weakness Left sided sciatica Adult general medical exam Screening for breast cancer Osteoarthritis of right hip Hospital discharge follow-up Vitamin D deficiency Hypercalcemia Multiple lacunar infarcts Hearing loss Urge urinary incontinence GERD (gastroesophageal reflux disease) COPD (chronic obstructive pulmonary disease) Hypertension Dyslipidemia Hypercalcemia Osteoporosis History of ductal carcinoma in situ (DCIS) of breast Surgical History History of right hip replacement History of colonoscopy History of lumpectomy of right breast History of pubovaginal sling H/O right inguinal hernia repair Family History Father Heart failure CVD (cardiovascular disease) Mother Breast cancer Social History Household Members: None Housing: House Do you presently have visiting nurse or other home services: No Alcohol intake: former Patient Tobacco Use Status: Former Tobacco user Tobacco use type: Cigarette e-Cigarette/Vaping Use: Never Used Second Hand Smoke Exposure: No Advance Directives Date on File: 10/19/21 service: No Current occupational status: retired Cognitive needs: Yes (CANE) Hearing needs: Yes (hearing aide) Vision needs: No (glaases) Questionnaire Medicare Wellness Checkup What is your age?: 80 or older What gender do you identify with?: female During the past 4 weeks, how much have you been bothered by emotional problems such as feeling anxious, depressed, irritable, sad or downhearted, and blue?: not at all During the past 4 weeks, has your physical & emotional health limited your social activities with family, friends, neighbors, or groups?: not at all During the past 4 weeks, how much bodily pain have you generally had?: very mild pain During the past 4 weeks, was someone available to help you if you needed & wanted help?: yes, as much as I wanted During the past 4 weeks, what was the hardest physical activity you could do for at least 2 minutes?: light Can you get to places out of walking distance without help? (For eg., can you travel alone on buses, taxis or drive your car?): Yes Can you go shopping for groceries or clothes without someone's help?: Yes Can you prepare your own meals?: Yes Can you do your housework without help?: Yes Because of any health problems, do you need the help of another person with your personal care needs such as eating, bathing, dressing or getting around the house?: No During the past 4 weeks how have things been going for you?: pretty well Are you having difficulties driving your car?: no Do you always fasten your seat belt when you are in a car?: yes, usually During past 4 weeks, have you been bothered by the following: never: Falling or dizzy when standing up, Sexual problems?, Teeth or denture problems? and Problems using the telephone? and seldom: Trouble eating well? and Tiredness or fatigue? Have you fallen 2 or more times in the past year?: Yes Are you afraid of falling?: No Are you a smoker?: no During the past 4 weeks, how many drinks of wine, beer, or other alcoholic beverages did you have?: no alcohol at all Do you exercise for about 20 minutes 3 or more times a week?: yes, most of the time Have you been given information to help with the following?: yes: Hazards in your house that might hurt you? and yes: Keeping track of your medications? How often do you have trouble taking medicines the way you have been told to take them?: I always take medicine as prescribed How confident are you that you can control & manage most of your health problems?: very confident What is your race?: White Mini Mental State Exam (MMSE) Orientation What is the (year) (season) (date) (day) (month)?: year, season, date, day and month Where are we (state) (county) (town or city) (hospital) (floor)?: state, county, town or city and hospital/clinic Registration Name of 3 unrelated objects clearly and slowly, then ask patient to repeat all 3 of them. (1st repeat determines score. Make sure they can repeat all three): object 1, object 2 and object 3 Attention & Calculation (CHOOSE ONE) Spell WORLD backwards (DLROW): 4 letters Recall Ask patient to repeat the 3 items from question #3.: object 1, object 2 and object 3 Language Show patient a wristwatch & ask what it is. Repeat for pencil.: watch and pencil Ask the patient to repeat the phrase 'No ifs, ands, or buts' after you.: correct Ask the patient to 'take a piece of paper with their right hand' 'fold paper in half' 'place paper on floor': take paper in right hand, fold paper in half and place paper on floor Print the sentence 'CLOSE YOUR EYES' on a piece. If patient actually closes eyes then score.: followed written direction Give patient a blank piece of paper & ask to write a sentence. Score if it contains a noun & verb.: sentence contains subject and verb Ask patient to copy figure of intersecting pentagons exactly. Score if all 10 angles & 2 intersects are included.: all 10 angles present & 2 are intersected Score Score: 28 Activity of Daily Living Bathing - sponge bath, tub bath or shower: receives no assistance (gets in/out by self, if usual bathing means Dressing - getting clothes from closets & drawers, including inner/outer garments & fasteners.: gets clothes & gets completely dressed without help Toileting - going to the 'toilet room' for urine/bowel elimination & cleaning self/arranging clothes: goes to toilet room, cleans self, arranges clothes without help Transfer: moves in & out of bed and chair without help (may use support object) Continence: has occasional 'accidents' Feeding: feeds self without help Total Score: 0 Information obtained from: patient Using telephone: independent Traveling: independent Shopping: independent Preparing meals: independent Housework: needs assistance Taking medicine: independent Managing money: independent PHQ-9 Over the last 2 weeks, how often have you been bothered by any of the following problems? 1. Little interest or pleasure in doing things: not at all 2. Feeling down, depressed, or hopeless: not at all 3. Trouble falling or staying asleep, or sleeping too much: not at all 4. Feeling tired or having little energy: not at all 5. Poor appetite or overeating: not at all 6. Feeling bad about yourself - or that you are a failure or have let yourself or your family down: not at all 7. Trouble concentrating on things, such as reading the newspaper or watching television: not at all 8. Moving or speaking so slowly that other people could have noticed. Or the opposite - being so fidgety or restless that you have been moving around a lot more than usual: not at all 9. Thoughts that you would be better off or of hurting yourself in some way: not at all Total score: 0 Depression Screening Interpretation: Negative Depression Screening Done: Yes 12273 - PHQ-9 Billing: Yes Source: Developed by Drs. Lewis Lopez, Dixie Sharma, Clay Stevenson and colleagues, with an educational chucky from [employer]. AUDIT C Alcohol Use Questionnaire (AUDIT-C) 1. How often do you have a drink containing alcohol?: Never Total Score: 0 Score Reviewed/Action Taken: No Thrive Questionnaire Date Thrive assessed: 12/11/23 I am a: Patient What is your living situation today?: I have a steady place to live Within the past 12 months, did the food you bought not last and you didn't have the money to get more?: Never true Within the past 12 months, did you worry whether your food would run out before you got money to buy more?: Never true Do you have trouble paying for medicines?: No Do you have trouble getting transportation to medical appointments?: No Do you have trouble paying your heating and electricity bill?: No Do you have trouble taking care of your child, family member or friend?: No Do you have trouble with day-to-day activities such as bathing, preparing meals, shopping, managing finances, etc.?: No Are you currently unemployed and looking for a job?: No Are you interested in more education?: No Please select the resources that you would like help with: None Currently or been in a relationship where the following occur: No concerns reported THRIVE Score: 0 Fall Risk Assessment Fall Risk Assessment Fall risk assessment: 1 Fall in past year LEMUEL-7 AMB Questionnaire LEMUEL-7 Date LEMUEL - 7 assessed: 12/11/23 Feeling nervous, anxious, or on edge: 0 = Not at all Not being able to stop or control worryin = Not at all Worrying too much about different things: 0 = Not at all Trouble relaxin = Not at all Being so restless that it is hard to sit still: 0 = Not at all Becoming easily annoyed or irritable: 0 = Not at all Feeling afraid as if something awful might happen: 0 = Not at all Total LEMUEL-7 score (0-4 normal; 5-9 mild; 10-14 moderate; 15-21 severe): 0 Source: Developed by Drs. Lewis Lopez, Dixie Sharma, Clay Stevenson and colleagues, with an educational chucky from [employer]. LEMUEL-7 Assessment Billing LEMUEL-7 Assessment Tool: LEMUEL-7 Assessment 16528 Review of Systems Const All systems reviewed & are unremarkable except as noted in HPI and below Card Denies chest pain at rest, Denies chest pain with activity, Denies edema, Denies irregular heart rhythm, Denies claudication, Denies dyspnea, Denies dyspnea on exertion, Denies orthopnea, Denies paroxysmal nocturnal dyspnea and Denies slow heart rate Resp Denies cough, Denies dyspnea and Denies dyspnea on exertion GI Denies abdominal pain, Denies change in bowel habits, Denies excessive flatus, Denies nausea and Denies vomiting Denies urinary incontinence, Denies urinary hesitancy and Denies urinary urgency Physical Exam Vital Signs: Last Vital Signs BP 136/58 L 12/11/23 14:27 BMI result Body Mass Index 20.6 Const General: cooperative Orientation/consciousness: patient oriented x3 Limitations: ambulation with cane Resp Effort & Inspection: normal respiratory effort Auscultation: clear to auscultation bilaterally Cardio Jugular venous distension: no JVD Rate: regular rate Rhythm: regular rhythm Heart sounds: S1 normal heart sound present and S2 normal heart sound present Neuro General: patient oriented x3 Romberg Test: Negative Extrem General: Yes full ROM Assessment & Plan Assessment & Plan (1) Encounter for Medicare annual wellness exam: Code(s): Z00.00 - Encounter for general adult medical examination without abnormal findings Plan: Repeat in a year. (2) Multiple lacunar infarcts: Code(s): I63.81 - Other cerebral infarction due to occlusion or stenosis of small artery Plan: Continue aspirin for secondary prophylaxis. (3) COPD (chronic obstructive pulmonary disease): Code(s): J44.9 - Chronic obstructive pulmonary disease, unspecified Qualifiers: COPD type: unspecified COPD Qualified Code(s): J44.9 - Chronic obstructive pulmonary disease, unspecified Plan: Use rescue inhaler as needed. (4) Rash: Code(s): R21 - Rash and other nonspecific skin eruption Plan: Start prednisone pack. Orders: Orders Comprehensive [place]. Panel Fast 4 Months I63.81 - Other cerebral infarction due to occlusion or stenosis of small artery Medications: New prednisone Take 4 tabs for 2 days, then 3 tabs for 2 days, then 2 tabs for 2 days, then 1 tab for 2 days 10 mg PO DIRECTED 20 tabs 0RF 8 days triamcinolone acetonide 0.5% 1 appl topical DAILY 15 grams 1RF 2 weeks Quality Reporting (2019) Fall Risk Screening ([facility] 139) Fall risk assessment: 1 Fall in past year Depression/Bipolar (159/160/161/177) PHQ-9: Total score: 0 Coding Level of Care Code Medicare Subsequent (G0439) Est Pt Level 3 (97059) Diagnoses Encounter for Medicare annual wellness exam Z00.00 Multiple lacunar infarcts I63.81 Chronic obstructive pulmonary disease, unspecified COPD type J44.9 COPD type: unspecified COPD Rash R21 CPT Codes Advance Care Planning - Time spent: 1-15 minutes, on File ([id number]) Additional Codes LEMUEL-7 Assessment Billing - LEMUEL-7 Assessment Tool: LEMUEL-7 Assessment 05166 ([id number]) Time Spent (min) 40 Advance Care Planning Advance Care Planning discussion: Exists, not on file Date of discussion: 12/11/23 Who was present: patient and me Forms completed: Health Care Proxy Time spent: 1-15 minutes, on File Actual minutes spent: 2
== END 2023-12-11 15:12 | disposition home or self-care (01) ==
PROVIDERS: PCP Internal Medicine; Visit Provider Internal Medicine
DX: Z00.00 Encounter for general adult medical examination without abnormal findings (principal); I63.81 Other cerebral infarction due to occlusion or stenosis of small artery; J44.9 Chronic obstructive pulmonary disease, unspecified; R21 Rash and other nonspecific skin eruption
CPT/HCPCS: 1123F; 99213; G0439

== ENCOUNTER 2023-12-21 12:09 | Observation (INO) | payer MEDICARE, OTHER, SELFPAY ==
[2023-12-21] VITALS (11 sets, daily range): BP systolic 120–168; BP diastolic 43–74; PULSE 58–68; RESP 16–20; TEMP 36.4–37.3; O2SAT 98–100; BMI 22.7
--- NOTE | ~2023-12-21 | XR_ITS ---
EXAMINATION: XR CHEST CLINICAL INFORMATION: Chest pain COMPARISON: 09/25/2017 TECHNIQUE: Portable AP upright view of the chest was obtained. FINDINGS: The cardiac and mediastinal silhouettes are normal in size with calcification of the aortic arch. The lungs are clear without consolidation, atelectasis or pneumothorax. No pleural effusion. No acute osseous abnormality. A right convex scoliosis is present. XR/XR chest 1V IMPRESSION: No acute pulmonary process is seen. Electronically signed by: Kermit Salgado MD 12/21/2023 02:51 PM EDT
--- NOTE | 2023-12-21 12:12 | ECG_ITS ---
Test Reason : DIZZINESS Blood Pressure : / mmHG Vent. Rate : 071 BPM Atrial Rate : 071 BPM P-R Int : 166 ms QRS Dur : 146 ms QT Int : 460 ms P-R-T Axes : 049 085 019 degrees QTc Int : 499 ms Normal sinus rhythm Right bundle branch block Abnormal ECG When compared with ECG of 21-DEC-2023 12:38, No significant change was found Referred By: Karol Verde Electronically Signed By:MALIKA BARKER
[2023-12-21 12:33] LABS: MANUAL DIFF FLAG NO
[2023-12-21 12:36] LABS: Basophils Percent Auto 0.1 % (0-2); Eosinophils Absolute Auto 0.4 X10*3/uL (0.0-0.4); Hematocrit 25.6 % (37.0-47.0); Hemoglobin 8.3 g/dl (12.0-16.0); Imm Gran Abs Auto 0.05 X10*3/uL (0.00-0.03); Imm Gran Pct Auto 0.7 % (0.0-0.4); Lymphocytes Absolute Auto 1.3 X10*3/uL (1.2-4.9); Lymphocytes Percent Auto 17.9 % (20-40); Mean Corpuscular HGB Conc 32.4 g/dl (31.0-35.0); Mean Corpuscular Hemoglobin 30.3 pg (27.0-33.0); Mean Corpuscular Volume 93.4 fL (80.0-98.0); Mean Platelet Volume 9.5 fL (9.4-12.3); Monocytes Absolute Auto 0.9 X10*3/uL (0.1-1.2); Monocytes Percent Auto 12.5 % (2-11); Neutrophils Absolute Auto 4.8 x10*3/uL (2.0-8.3); Neutrophils Percent Auto 63.8 % (45-73); Platelet Count 260 X10*3/uL (160-400); Red Blood Count 2.74 X10*6/uL (4.20-5.50); Red Cell Distribution Width 13.3 % (11.0-16.0); White Blood Count 7.5 X10*3/uL (4.8-10.8)
--- NOTE | 2023-12-21 12:38 | ECG_ITS ---
Test Reason : CP Blood Pressure : / mmHG Vent. Rate : 063 BPM Atrial Rate : 063 BPM P-R Int : 196 ms QRS Dur : 144 ms QT Int : 442 ms P-R-T Axes : 067 090 044 degrees QTc Int : 452 ms Normal sinus rhythm Right bundle branch block Abnormal ECG When compared with ECG of 13-JUN-2023 06:15, No significant change was found Referred By: Karol Verde Electronically Signed By:MALIKA BARKER
--- NOTE | 2023-12-21 12:40 | ED.SYNCOPE ---
HPI - Syncope General Chief Complaint: Syncope Stated Complaint: SYNCOPAL EPISODE Time Seen by Provider: 12/21/23 12:28 Source: patient, family (Sister) and EMS Mode of arrival: EMS Limitations: no limitations History of Present Illness ED Provider: DR. Ortiz HPI narrative: 88-year-old female brought in by ambulance for evaluation after a syncopal episode at [facility] today. Patient was found unresponsive at the [facility] as per EMS patient was pulseless and CPR was started patient received 4 of chest compression, on EMS arrival patient was awake and alert able to give story, patient normally lives home independently and functional still drives and make shopping for herself. Patient was feeling fine this morning, been eating and drinking normally, no diarrhea, with no chest pain until CPR was performed on the patient, patient emergency department has no complaint except chest pain to touch and movement. Related Data Home Medications ?Medication ?Instructions ?Recorded ?Confirmed aspirin 81 mg tablet,delayed 81 mg PO DAILY 02/24/20 12/11/23 release (Adult Aspirin Regimen) denosumab 60 mg/mL subcutaneous 60 mg subcut [id number] 05/16/20 12/11/23 syringe (Prolia) tolterodine 4 mg capsule,extended 4 mg PO DAILY 03/26/23 12/11/23 release 24 hr docusate sodium 100 mg capsule 100 mg PO DAILY 09/24/23 12/11/23 (Colace) Previous Rx's ?Medication ?Instructions ?Recorded acetaminophen 650 mg 1,300 mg (2 x 650 mg) PO Q6H Pain 08/20/22 tablet,extended release (Tylenol (Scale Score 1-3) 30 days #240 tabs Arthritis Pain) rosuvastatin 10 mg tablet 10 mg PO DAILY 90 days #90 tabs 12/23/22 carvedilol 12.5 mg tablet 12.5 mg PO BID 90 days #180 tabs 03/26/23 losartan 100 mg tablet 100 mg PO DAILY 90 days #90 tabs 06/03/23 walker #1 ea 06/28/23 ferrous sulfate 325 mg (65 mg 325 mg PO DAILY #60 tabs 08/19/23 iron) tablet chlorthalidone 25 mg tablet 25 mg PO DAILY 90 days #90 tabs 09/06/23 lansoprazole 30 mg capsule,delayed 30 mg PO DAILY@0630 #90 caps 09/30/23 release tiotropium bromide 1.25 2 puff inhalation BEDTIME 30 days 11/27/23 mcg/actuation mist for inhalation #4 grams (Spiriva Respimat) vibegron 75 mg tablet (Gemtesa) 75 mg PO DAILY 90 days #90 tabs 12/02/23 amlodipine 5 mg tablet 5 mg PO DAILY 90 days #90 tabs 12/06/23 ezetimibe 10 mg tablet 10 mg PO DAILY 90 days #90 tabs 12/06/23 prednisone 10 mg tablet 10 mg PO DIRECTED 8 days #20 12/11/23 tabs triamcinolone acetonide 0.5 % 1 appl topical DAILY 2 weeks #15 12/11/23 topical cream grams Allergies Allergy/AdvReac Type Severity Reaction Status Date / Time cephalexin [Keflex] Allergy Intermediate Unknown Verified 12/21/23 12:21 tetracycline [Tetracycline] Allergy Intermediate TONGUE Verified 12/21/23 12:21 SWOLLEN Review of Systems Review of Systems: All other systems are reviewed and are negative Constitutional: Reports as per HPI and Reports no additional constitutional complaints Eyes: Reports as per HPI and Reports no additional eye complaints Reports system reviewed and no additional complaints, except as documented Cardiovascular: Reports as per HPI and Reports no additional cardiovascular complaints Respiratory: Reports as per HPI and Reports no additional respiratory complaints Gastrointestinal: Reports as per HPI and Reports no additional gastrointestinal complaints Genitourinary: Reports no additional female genitourinary complaints Musculoskeletal: Reports no additional musculoskeletal complaints Skin/Breast: Reports system reviewed and no additional complaints, except as docu Psychiatric: Reports no additional psychiatric complaints Endocrine: Reports no additional endocrine complaints Hematologic/Lymphatic: Reports no additional hematologic/lymphatic complaints Allergic/Immunologic: Reports no additional allergic/immunologic complaints Reports system reviewed and no additional complaints, except as documented and Reports Abnormal speech present FORMERLY [facility], [facility] Past Medical History Medical History Hospital discharge follow-up Acute leg pain Facial paresthesia Swelling of lower extremity Right leg swelling Hypertensive urgency Constipation Frequent UTI Edema of left lower leg Leg cramping Primary hypertension Uncontrolled hypertension Left hip pain Left-sided weakness Left sided sciatica Adult general medical exam Screening for breast cancer Osteoarthritis of right hip Hospital discharge follow-up Vitamin D deficiency Hypercalcemia Multiple lacunar infarcts Hearing loss Urge urinary incontinence GERD (gastroesophageal reflux disease) COPD (chronic obstructive pulmonary disease) Hypertension Dyslipidemia Hypercalcemia Osteoporosis History of ductal carcinoma in situ (DCIS) of breast Surgical History History of right hip replacement History of colonoscopy History of lumpectomy of right breast History of pubovaginal sling H/O right inguinal hernia repair Family History Family History Father Heart failure CVD (cardiovascular disease) Mother Breast cancer Social History Social History Household Members: None Housing: House Do you presently have visiting nurse or other home services: No Alcohol intake: former Patient Tobacco Use Status: Former Tobacco user Tobacco use type: Cigarette Smoked in Last 30 Days: No e-Cigarette/Vaping Use: Never Used Second Hand Smoke Exposure: No Use of substances other than those prescribed or required for medical reasons: No Advance Directives: No Advance Directives Information Provided: No Advance Directives Date on File: 10/19/21 Do you have a plan to hurt others: No Plan service: No Current occupational status: retired Cognitive needs: Yes (CANE) Hearing needs: Yes (hearing aide) Vision needs: No (glaases) Physical Exam Vital Signs: Vital Signs: Last Vital Signs Temp 98.1 F 12/21/23 13:56 Pulse 66 12/21/23 13:56 Resp 16 12/21/23 13:56 BP 132/44 L 12/21/23 13:56 Pulse Ox 100 12/21/23 13:56 O2 Del Method Room Air 12/21/23 13:56 BMI result Body Mass Index 22.7 Vital signs have been reviewed and appear to be correct. Blood pressure elevated. Heart rate normal. Respiratory rate normal. Temperature normal. Oxygen saturation normal. Appearance: Alert. Oriented X3. No acute distress. Head: Normal external exam. Normocephalic. Atraumatic. No Mohan signs noted. No raccoon eyes noted Eyes: PERRLA. EOMI. Conjunctiva and sclera normal. Eyelids normal. ENT: TM's Normal. Pharynx normal. Uvula midline. Moist mucous membranes. No trismus noted. No drooling noted. No muffled voice noted. Neck: Normal inspection. Neck supple. FROM. No adenopathy. Thyroid Normal. No meningeal signs. No neck mass noted. CVS: Normal heart rate and rhythm. Heart sound normal. No murmurs noted. Pulses normal throughout. Respiratory: No respiratory distress. Painless inspiration. Breath sounds normal. No wheezes/rales/rhonchi noted. Midsternal tenderness to touch with reproducible tenderness. No accessory muscle usage noted or decreased air movement noted. Abdomen: Soft and nontender. Bowel sounds normal in all 4 quadrants. No distention noted. No organomegaly noted. No visible injury noted. Back: No CVA tenderness. Full range of motion noted. Skin: Skin warm and dry. Normal skin color. Normal skin turgor. No rashes/lesions/lacerations noted. Extremities: No lower extremity edema. Extremities exhibit normal range of motion. Extremities nontender. Neuro: Oriented X 3. Cranial nerve exam: II-XII are grossly intact No motor deficit. No sensory deficit. Reflexes normal. Course Reevaluation(s) Reevaluation #1: Syncopal episode at [facility], bystander felt with no pulse and CPR was started patient is complaining of chest pain after chest compression. Patient otherwise hemodynamically stable with unremarkable labs, will admit the patient for monitoring. Time: 15:17 Medical Decision Making Differential Diagnosis Differential Diagnoses: The differential diagnosis associated with the presentation includes (Cardiac arrest, ACS, severe anemia, electrolyte derangement, dysrhythmia, chest wall contusion after CPR.) Admission/Observation Consideration of admission/observation: Escalation of care including admission/observation considered Consult Healthcare Provider Management of the patient was discussed with: Hospitalist (Dr. Gibson) Lab Data MDM Lab Attestation statement: I reviewed the patient's lab results. 12/21/23 12:27 12/21/23 12:27 Labs: Lab Results 12/21/23 Range/Units 12:27 WBC 7.5 (4.8-10.8) X10*3/uL RBC 2.74 L (4.20-5.50) X10*6/uL Hgb 8.3 L (12.0-16.0) g/dl Hct 25.6 L (37.0-47.0) % MCV 93.4 (80.0-98.0) fL MCH 30.3 (27.0-33.0) pg MCHC 32.4 (31.0-35.0) g/dl RDW 13.3 (11.0-16.0) % Plt Count 260 (160-400) X10*3/uL MPV 9.5 (9.4-12.3) fL Immature Gran % (Auto) 0.7 H (0.0-0.4) % Neut % (Auto) 63.8 (45-73) % Lymph % (Auto) 17.9 L (20-40) % [place] % (Auto) 12.5 H (2-11) % Eos % (Auto) 5.0 H (0-4) % Baso % (Auto) 0.1 (0-2) % Lymph # (Auto) 1.3 (1.2-4.9) X10*3/uL [place] # (Auto) 0.9 (0.1-1.2) X10*3/uL Eos # (Auto) 0.4 (0.0-0.4) X10*3/uL Baso # (Auto) 0.0 (0.0-0.2) X10*3/uL Abs Immat Gran (auto) 0.05 H (0.00-0.03) X10*3/uL Absolute Neuts (auto) 4.8 (2.0-8.3) x10*3/uL Absolute Nucleated RBC 0.000 (0.0-0.012) X10*3/uL Nucleated RBC % (auto) 0.0 (0.0-0.2) /100WBC Sodium 141 (135-145) mmol/L Potassium 4.3 (3.3-5.1) mmol/L Chloride 108 (96-108) mmol/L Carbon Dioxide 24 (22-29) mmol/L Anion Gap 13 (12-20) BUN 38 H (9-16) mg/dL Creatinine 1.15 (0.5-1.4) mg/dL Estim Creat Clear Calc 21.4 Estimated GFR 45 Random Glucose 141 H (60-115) mg/dL Calcium 9.3 (8.4-10.2) mg/dL Troponin I High Sens 3.8 (<3.5-17.0) ng/L Independent Interpretation I performed an independent interpretation of an: Plain X-Ray (Chest: No acute pulmonary process is seen.) Radiology Impression Discussion of test interpretation with radiology: I have reviewed the radiologist's reading. Discharge Plan Discharge Clinical Impression: Syncope Patient Disposition: Admitted As Inpatient Prescriptions: No Action rosuvastatin 10 mg tablet 10 mg PO DAILY 90 Days Qty: 90 1RF losartan 100 mg tablet 100 mg PO DAILY 90 Days Qty: 90 3RF (DME) gemini Misc See Rx Instructions .Route Qty: 1 0RF Rx Instructions: Pediatric walker chlorthalidone 25 mg tablet 25 mg PO DAILY 90 Days Qty: 90 1RF lansoprazole 30 mg capsule,delayed release(DR/EC) 30 mg PO DAILY@0630 Qty: 90 3RF Spiriva Respimat 1.25 mcg/actuation mist 2 puff inhalation BEDTIME 30 Days Qty: 4 3RF Gemtesa 75 mg tablet 75 mg PO DAILY 90 Days Qty: 90 1RF amlodipine 5 mg tablet 5 mg PO DAILY 90 Days Qty: 90 1RF ezetimibe 10 mg tablet 10 mg PO DAILY 90 Days Qty: 90 3RF ferrous sulfate 325 mg (65 mg iron) Tablet 325 mg PO DAILY Qty: 60 1RF Prolia 60 mg/mL syringe 60 mg subcut [id number] Rx Instructions: last dose may 2021 docusate sodium [Colace] 100 mg capsule 100 mg PO DAILY acetaminophen [Tylenol Arthritis Pain] 650 mg tablet extended release 1,300 mg PO Q6H 30 Days Qty: 240 1RF prednisone 10 mg tablet 10 mg PO DIRECTED 8 Days Qty: 20 0RF Rx Instructions: Take 4 tabs for 2 days, then 3 tabs for 2 days, then 2 tabs for 2 days, then 1 tab for 2 days triamcinolone acetonide 0.5 % cream 1 appl topical DAILY 14 Days Qty: 15 1RF aspirin [Adult Aspirin Regimen] 81 mg tablet,delayed release (DR/EC) 81 mg PO DAILY tolterodine 4 mg capsule,extended release 24hr 4 mg PO DAILY carvedilol 12.5 mg tablet 12.5 mg PO BID 90 Days Qty: 180 3RF Rx Instructions: must administer with a meal/food Print Language: Peruvian
[2023-12-21 13:13] LABS: Anion Gap 13 (12-20); Blood Urea Nitrogen 38 mg/dL (9-16); Calcium 9.3 mg/dL (8.4-10.2); Carbon Dioxide 24 mmol/L (22-29); Chloride 108 mmol/L (96-108); Creatinine Clr Calc Pharmacy 21.4; Estimated Glomerular Filt Rate 45; Glucose Random 141 mg/dL (60-115); Potassium 4.3 mmol/L (3.3-5.1); Sodium 141 mmol/L (135-145)
[2023-12-21 13:22] LABS: Troponin-I High Sensitivity 3.8 ng/L (<3.5-17.0)
--- NOTE | 2023-12-21 14:02 | PC.NURSE ---
patient a&ox3, vss, shelter monitor intact, ekg performed, cxr performed, pt requesting po which provider okd, pt currently eating saltines and some crackers, pt states she has mid sternal chest discomfort which she is attributing to the cpr as it is positional when moving. family at bedside, call aguilar within reach, will continue with plan of care
--- NOTE | 2023-12-21 15:53 | P.HPHOSP_ITS ---
History of Present Illness Date of Service: 12/21/23 Chief Complaint: syncope 88-year-old woman presenting to the ER after a syncopal episode at [facility]. Apparently patient was found unresponsive and possibly pulseless and CPR was started. She received for chest compressions. Patient stated that she remembered just prior she felt off and had some stomach upset but did not remember losing consciousness. He did report that about a week ago she had been working in the garden developed a rash and swelling to her face and arms. She was treated with oral prednisone from her primary care provider but other than that she has been in her usual state of health. She lives alone and is pretty independent. On arrival EMS noted that the patient was awake and alert and able to tell what had happened. Patient reports feeling in her normal state of health this morning. She denied nausea, vomiting, diarrhea, chest pain, shortness of breath, fever, recent illness, recent travel, sick contacts. Chest x-ray negative for consolidation or effusion. Labs noted to be within acceptable limits, vital signs stable. Orthostatic blood pressures negative. Patient will be placed on observation for syncope. Review of Systems 2 Review of Systems: Denies any recent fever chills or decrease in appetite respiratory denies any shortness of breath or cough cardiovascular denied chest pain gastrointestinal denies any dysphagia abdominal pain nausea vomiting or diarrhea genitourinary denies any dysuria frequency or hematuria musculoskeletal denies any joint pain or swelling neuropsych denies any weakness or seizures all other systems reviewed are negative FORMERLY [facility] Medical History Hospital discharge follow-up Acute leg pain Facial paresthesia Swelling of lower extremity Right leg swelling Hypertensive urgency Constipation Frequent UTI Edema of left lower leg Leg cramping Primary hypertension Uncontrolled hypertension Left hip pain Left-sided weakness Left sided sciatica Adult general medical exam Screening for breast cancer Osteoarthritis of right hip Hospital discharge follow-up Vitamin D deficiency Hypercalcemia Multiple lacunar infarcts Hearing loss Urge urinary incontinence GERD (gastroesophageal reflux disease) COPD (chronic obstructive pulmonary disease) Hypertension Dyslipidemia Hypercalcemia Osteoporosis History of ductal carcinoma in situ (DCIS) of breast Family History Father Heart failure CVD (cardiovascular disease) Mother Breast cancer Surgical History History of right hip replacement History of colonoscopy History of lumpectomy of right breast History of pubovaginal sling H/O right inguinal hernia repair Social History Household Members: None Housing: House Do you presently have visiting nurse or other home services: No Alcohol intake: former Patient Tobacco Use Status: Former Tobacco user Tobacco use type: Cigarette Smoked in Last 30 Days: No e-Cigarette/Vaping Use: Never Used Second Hand Smoke Exposure: No Use of substances other than those prescribed or required for medical reasons: No Advance Directives: Yes Advance Directives on File: Yes Advance Directives Date on File: 10/19/21 service: No Current occupational status: retired Cognitive needs: Yes (CANE) Hearing needs: Yes (hearing aide) Vision needs: No (glaases) Meds Allergies Allergy/AdvReac Type Severity Reaction Status Date / Time cephalexin [Keflex] Allergy Intermediate Unknown Verified 12/25/23 19:38 tetracycline [Tetracycline] Allergy Intermediate TONGUE Verified 12/25/23 19:38 SWOLLEN Active Medications: Current Medications Acetaminophen (Acetaminophen 325 Mg Tablet) 650 mg PO Q6H PRN PRN Reason: Pain, Mild (Pain Scale 1-3), fever or headache Calcium Carbonate (Calcium Carbonate 750 Mg Tab.Chew) 750 mg PO Q4H PRN PRN Reason: Heartburn Heparin Sodium (Porcine) (Heparin Sodium,Porcine 5,000 Unit/Ml Vial) 5,000 unit SUBCUT Q12H [place]WAIS Magnesium Hydroxide (Milk Of Magnesia 30 Ml Oral.Susp) 30 ml PO DAILY PRN PRN Reason: Constipation Melatonin (Melatonin 3 Mg Tablet) 6 mg PO BEDTIME PRN PRN Reason: Insomnia Sodium Chloride (0.9 % Sodium Chloride Flush 3 Ml Syringe) 3 ml IVFLUSH QSHIFT AWAIS Home Medications ?Medication ?Instructions ?Recorded ?Confirmed ?Last Taken ?Type aspirin 81 mg tablet,delayed 81 mg PO DAILY 02/24/20 12/21/23 12/21/23 History release (Adult Aspirin Regimen) denosumab 60 mg/mL subcutaneous 60 mg subcut [id number] 05/16/20 12/21/23 05/22/21 History syringe (Prolia) docusate sodium 100 mg capsule 100 mg PO BID 09/24/23 12/21/23 12/21/23 History (Colace) acetaminophen 650 mg 1,300 mg PO Q6H PRN Pain (Scale 12/21/23 12/21/23 Unknown History tablet,extended release (Tylenol Score 1-3) Arthritis Pain) ezetimibe 10 mg tablet 10 mg PO BEDTIME 12/21/23 12/21/23 Unknown History rosuvastatin 10 mg tablet 10 mg PO BEDTIME 12/21/23 12/21/23 Unknown History tiotropium bromide 1.25 2 puff inhalation DAILY 12/21/23 12/21/23 Unknown History mcg/actuation mist for inhalation (Spiriva Respimat) triamcinolone acetonide 0.5 % 1 appl topical DAILY PRN Rash 12/21/23 12/21/23 Unknown History topical cream Physical Exam 2 Vital Signs and Narrative: Vital Signs: Last Vital Signs Temp 98.1 F 12/21/23 13:56 Pulse 66 12/21/23 13:56 Resp 16 12/21/23 13:56 BP 132/44 L 12/21/23 13:56 Pulse Ox 100 12/21/23 13:56 O2 Del Method Room Air 12/21/23 13:56 BMI result Body Mass Index 22.7 Appearing in no acute distress head is normocephalic atraumatic eyes pupils are PERRLA sclera is anicteric mouth throat mucous membranes are intact and moist neck is supple no lymphadenopathy, no JVD noted lung sounds are clear to auscultation heart regular rate rhythm, clear S1, S2 positive bowel sounds, abdomen is soft, nontender neuro patient is alert x3, no focal deficits Results Labs 12/22/23 06:19 12/22/23 06:19 Labs: Laboratory Results - last 24 hr 12/21/23 12:27 MCV 93.4 MCH 30.3 MCHC 32.4 RDW 13.3 Plt Count 260 MPV 9.5 Immature Gran % (Auto) 0.7 H Neut % (Auto) 63.8 Lymph % (Auto) 17.9 L [place] % (Auto) 12.5 H Eos % (Auto) 5.0 H Baso % (Auto) 0.1 Lymph # (Auto) 1.3 [place] # (Auto) 0.9 Eos # (Auto) 0.4 Baso # (Auto) 0.0 Abs Immat Gran (auto) 0.05 H Absolute Neuts (auto) 4.8 Absolute Nucleated RBC 0.000 Nucleated RBC % (auto) 0.0 Anion Gap 13 Estim Creat Clear Calc 21.4 Estimated GFR 45 Random Glucose 141 H Calcium 9.3 Troponin I High Sens 3.8 Imaging Radiologist's Impressions: Impressions Chest X-Ray 12/21/23 13:20 IMPRESSION: No acute pulmonary process is seen. Electronically signed by: Kermit Salgado MD 12/21/2023 02:51 PM EDT RP Assessment and Plan (1) Syncope: Status: Acute Plan 80-year-old woman placed on observation after a syncopal episode while at [facility] Syncope monitor on telemetry cardiology consultation echo orthostatic blood pressure Hypertension stable blood pressure Normocytic anemia Continue iron supplementation Check iron studies GERD Continue PPI Hyperlipidemia Continue aspirin and statin DVT prophylaxis with heparin full code med rec pending Quality Stroke Does the patient have a stroke diagnosis?: No VTE Prior VTE?: No VTE Risk Level:: Medical - moderate - high VTE Device Contraindication: Treatment Not Indicated VTE Drug Contraindication: N/A - Med Ordered
[2023-12-21] MEDS: Heparin Sodium,Porcine 5,000 UNIT/ML VIAL 5000 UNIT SUBCUT (16:12)
[2023-12-21] MEDS: Acetaminophen 325 MG TABLET 650 MG PO ×2 (16:12→22:16)
[2023-12-21] MEDS: 0.9 % Sodium Chloride Flush 3 ML SYRINGE IVFLUSH (16:13)
--- NOTE | 2023-12-21 16:15 | PC.NURSE ---
pt medicated for sternal pain 09/28
--- NOTE | 2023-12-21 17:38 | PHA.MEDREC ---
Addendum entered by Kevin Stern [facility] 12/21/23 19:03: MED REC CHECKED BY [facility] Original Note: Pharmacy Consult ? Medication Reconciliation Pharmacy has completed the medication reconciliation. Spoke with patient to confirm medications. She is no longer taking iron, tolterodine, and prednisone. She finished prednisone either or friday. She is not on any antibiotics right now. She had prolia sometime in early November 2023. She has not needed to use her tylenol as much anymore. She took her morning medications today, did not take Spiriva today.
--- NOTE | 2023-12-21 18:02 | PC.NURSE ---
EKG the ekg was previously performed, hospitalist is aware- for some reason it did not cross over in our system, a picture of the ekg was sent via [employer] text to hospitalist
--- NOTE | 2023-12-21 18:04 | PC.NURSE ---
patient a&ox3, applications system analyst intact, pt states she has 6/10 pain- tylenol previously given, report was given to floor, pt to be transported shortly
[2023-12-21] MEDS: Docusate Sodium 100 MG CAPSULE PO (22:16)
[2023-12-21] MEDS: Ezetimibe 10 MG TABLET PO (22:17)
[2023-12-21] MEDS: Atorvastatin Calcium 40 MG TABLET PO (22:30)
[2023-12-22] VITALS (12 sets, daily range): BP systolic 119–167; BP diastolic 55–72; PULSE 52–67; RESP 16–20; TEMP 36.2–37.3; O2SAT 94–98
[2023-12-22] MEDS: traMADoL HCL 50 MG TABLET 25 MG PO ×4 (01:14→23:04)
[2023-12-22] MEDS: Heparin Sodium,Porcine 5,000 UNIT/ML VIAL 5000 UNIT SUBCUT ×2 (04:03→17:17)
[2023-12-22] MEDS: Acetaminophen 325 MG TABLET 650 MG PO ×2 (04:19→12:46)
--- NOTE | 2023-12-22 07:00 | CA_ITS ---
Transthoracic Echocardiogram Patient (Last, First, Middle): Chichi Cintron M Gender: Female Date of : 1935 Age: 88 Procedure Date: 12/22/2023 Procedure Type: Transthoracic Echocardiogram Location: [facility] [place] Height: 142.24 cm Weight: 45.81 kg BSA: 1.33 m2 Heart Rate: bpm BP: 133 / 62 mmHg Chief Port Director: RADHA Referring MD: Karol Verde NP Configurator: Fletcher Garza MD Symptoms: syncope Study Quality: Fair ECG Rhythm: Sinus Conclusions: - 1. Normal LV ejection fraction of 65-70% with impaired relaxation filling pattern 2. Moderate mitral annular calcification noted and calcific aortic valve changes noted with early mild aortic stenosis 3. Normal RV systolic pressure 4. No gross pericardial effusion Findings Left Ventricle Normal left ventricular size, thickness, and systolic function. The visually estimated ejection fraction is between 65-70%. Spectral Doppler is indicative of an impaired relaxation filling pattern. There is focal hypertrophy of the basal septum without obstructive physiology Right Ventricle Normal right ventricular cavity size and systolic function. Atria The left atrium is likely dilated. There is lipomatous hypertrophy of the interatrial septum. There is no evidence of interatrial shunt. The right atrium is normal in size. Aortic Valve There is mild calcification of the aortic valve. There is no aortic valve regurgitation. Mitral Valve There is mild anterior and moderate posterior mitral leaflet thickening. There is moderate mitral annular calcification. There is trace mitral valve regurgitation. There is no mitral valve stenosis. Pulmonic Valve The pulmonic valve was not well visualized. Tricuspid Valve Likely normal tricuspid valve structure and function. There is trace tricuspid valve regurgitation. The right ventricular systolic pressure is normal. The right ventricular systolic pressure is 24 mmHg. Normal right atrial pressure. There is no evidence of pulmonary hypertension. Great Vessels The aorta was not well visualized. The pulmonary artery was not well visualized. Moderate plaque is seen in the sino tubular ridge. Venous The inferior vena cava is normal in size and collapses greater than 50% with inspiration. Pericardium/Pleural There is no evidence of pericardial effusion. Prior Study Comparison No significant change compared to prior study dated: 02/23/2021. Measurements 2D Linear Measurements IVSd: 0.76 0.6-0.9/0.6-1.0 cm LVIDd: 3.51 3.9-5.3/4.2-5.9 cm LVIDd Index: 2.64 2.4-3.2/2.2-3.1 cm/m2 LVIDs: 2.00 2.0-3.6 cm LVPWd: 0.85 0.7-1.1 cm LA Diam: 3.40 2.7-3.8/3.0-4.0 cm LAIDs Index: 2.56 1.5-2.3 cm/m2 LV Mass: 94.29 67-162/88-224 g LV Mass Index: 70.89 43-95/49-115 g/m2 LVOT Diam: 1.90 3.0+(-)1.3 cm 2D Systolic Function EF 4C: 74.40 >55% EF 2C: 68.80 >55% EF BiP: 71.10 >55% Mitral Valve MV Pk E: 1.10 MV PK A: 1.52 MV Decel Time: 314.00 E/A: 0.70 E'Lateral: 6.20 E'Medial: 4.68 E/E' Med: 23.50 E/E' Lat: 17.70 PHT: 92.00 MVA PHT: 2.39 Decel Berrien: 3.49 Aortic Valve AoV Pk Naga: 1.21 AoV Mn Naga: 0.95 AoV VTI: 0.37 AoV Pk Grad: 6.00 Aov Mn Grad: 4.00 YADIRA Cont.VTI: 1.81 LVOT LVOT Pk Naga: 0.88 LVOT Mn Naga: 0.64 LVOT VTI: 0.23 LVOT Pk Grad: 3.00 LVOT Mn Grad: 2.00 LVOT Diam: 1.90 LVOT Area: 2.84 Diastolic Function MV Pk E: 1.10 MV Pk A: 1.52 E/A: 0.70 E'Medial: 4.68 E/E' Med: 23.50 E' Laterial: 6.20 E/E' Lat: 17.70 Right Ventricle TAPSE (mm): 25.70 TVS' Naga: 10.00 Tricuspid Valve TR Pk Naga: 2.30 TR Pk Grad: 21.00 RA Press: 3.00 RVSP: 24.00 Great Vessels Aorta Sinus of Valsalva: 3.43 2.0-3.[address] [place]: 2.00 1.7-3.4 cm Updated in Other Vendor System with Status of Final Fletcher Garza MD electronically signed on 12/22/2023 12:44:28 PM with status of Final
[2023-12-22] MEDS: Tiotropium Bromide 2.5 mcg 1 PUFF/2.5 MCG MIST.INHAL 2 PUFF INHALE (07:32)
[2023-12-22] MEDS: 0.9 % Sodium Chloride Flush 3 ML SYRINGE IVFLUSH ×3 (07:45→21:13)
[2023-12-22 08:00] LABS: Basophils Percent Auto 0.4 % (0-2); Eosinophils Absolute Auto 0.3 X10*3/uL (0.0-0.4); Eosinophils Percent Auto 5.3 % (0-4); Hematocrit 25.6 % (37.0-47.0); Hemoglobin 8.2 g/dl (12.0-16.0); Imm Gran Abs Auto 0.01 X10*3/uL (0.00-0.03); Imm Gran Pct Auto 0.2 % (0.0-0.4); Lymphocytes Absolute Auto 1.3 X10*3/uL (1.2-4.9); Lymphocytes Percent Auto 22.4 % (20-40); MANUAL DIFF FLAG NO; Mean Corpuscular Hemoglobin 29.8 pg (27.0-33.0); Mean Corpuscular Volume 93.1 fL (80.0-98.0); Mean Platelet Volume 10.2 fL (9.4-12.3); Monocytes Absolute Auto 0.8 X10*3/uL (0.1-1.2); Monocytes Percent Auto 14.2 % (2-11); Neutrophils Absolute Auto 3.3 x10*3/uL (2.0-8.3); Neutrophils Percent Auto 57.5 % (45-73); Platelet Count 241 X10*3/uL (160-400); Red Blood Count 2.75 X10*6/uL (4.20-5.50); Red Cell Distribution Width 13.5 % (11.0-16.0); White Blood Count 5.7 X10*3/uL (4.8-10.8)
[2023-12-22] MEDS: Docusate Sodium 100 MG CAPSULE PO ×2 (08:20→21:11)
[2023-12-22] MEDS: amLODIPine Besylate 5 MG TABLET PO (08:20)
[2023-12-22] MEDS: hydroCHLOROthiazide 25 MG TABLET PO (08:20)
[2023-12-22] MEDS: Aspirin Enteric Coated 81 MG TABLET.DR PO (08:20)
[2023-12-22] MEDS: Losartan Potassium 50 MG TABLET 100 MG PO (08:20)
[2023-12-22 08:23] LABS: Alanine Aminotransferase 13 U/L (0-31); Alkaline Phosphatase 50 U/L (39-117); Anion Gap 12 (12-20); Aspartate Amino Transferase 13 U/L (5-31); Bilirubin Total 0.4 mg/dL (0.0-1.0); Blood Urea Nitrogen 29 mg/dL (9-16); Calcium 8.8 mg/dL (8.4-10.2); Carbon Dioxide 24 mmol/L (22-29); Chloride 110 mmol/L (96-108); Estimated Glomerular Filt Rate > 60; Glucose Random 88 mg/dL (60-115); Iron 27 mcg/dL (30-160); Percent Iron Saturation 12 % (15-50); Potassium 3.6 mmol/L (3.3-5.1); Sodium 142 mmol/L (135-145); Total Iron Binding Capacity 222 mcg/dL (228-428); Total Protein 5.3 g/dL (6.5-8.0); Unsaturated Iron Binding 195 ug/dL
--- NOTE | 2023-12-22 09:48 | HO.PM.IMPN ---
Subjective Subjective Date of Service: 12/22/23 Physical Exam Vital Signs: Vital Signs: Last Vital Signs Temp 98.3 F 12/22/23 07:16 Pulse 52 12/22/23 07:34 Resp 18 12/22/23 07:34 BP 133/62 12/22/23 07:16 Pulse Ox 95 12/22/23 07:16 O2 Del Method Room Air 12/22/23 07:16 BMI result Body Mass Index 22.7 Objective Data Active Medications Acetaminophen (Acetaminophen 325 Mg Tablet) 650 mg PO Q6H PRN PRN Reason: Pain, Mild (Pain Scale 1-3), fever or headache Last Admin: 12/22/23 04:19 Dose: 650 mg Documented By: MINERVA Amlodipine Besylate (Amlodipine Besylate 5 Mg Tablet) 5 mg PO DAILY [facility]; Protocol Last Admin: 12/22/23 08:20 Dose: 5 mg Documented By: LASHONDA Aspirin (Aspirin Enteric Coated 81 Mg Tablet.Dr) 81 mg PO DAILY [facility] Last Admin: 12/22/23 08:20 Dose: 81 mg Documented By: LASHONDA Atorvastatin Calcium (Atorvastatin Calcium 40 Mg Tablet) 40 mg PO BEDTIME [facility] Calcium Carbonate (Calcium Carbonate 750 Mg Tab.Chew) 750 mg PO Q4H PRN PRN Reason: Heartburn Docusate Sodium (Docusate Sodium 100 Mg Capsule) 100 mg PO BID [facility] Last Admin: 12/22/23 08:20 Dose: 100 mg Documented By: LASHONDA Ezetimibe (Ezetimibe 10 Mg Tablet) 10 mg PO BEDTIME [facility] Last Admin: 12/21/23 22:17 Dose: 10 mg Documented By: MINERVA Heparin Sodium (Porcine) (Heparin Sodium,Porcine 5,000 Unit/Ml Vial) 5,000 unit SUBCUT Q12H [facility] Last Admin: 12/22/23 04:03 Dose: 5,000 unit Documented By: MINERVA Hydrochlorothiazide (Hydrochlorothiazide 25 Mg Tablet) 25 mg PO DAILY [facility] Last Admin: 12/22/23 08:20 Dose: 25 mg Documented By: LASHONDA Losartan Potassium (Losartan Potassium 50 Mg Tablet) 100 mg PO DAILY [facility]; Protocol Last Admin: 12/22/23 08:20 Dose: 100 mg Documented By: LASHONDA Magnesium Hydroxide (Milk Of Magnesia 30 Ml Oral.Susp) 30 ml PO DAILY PRN PRN Reason: Constipation Melatonin (Melatonin 3 Mg Tablet) 6 mg PO BEDTIME PRN PRN Reason: Insomnia Non-Formulary Medication (Vibegron [Gemtesa]) 75 mg PO DAILY [facility] Omeprazole (Omeprazole 20 Mg Capsule.Dr) 20 mg PO DAILY@0630 [facility] Last Admin: 12/22/23 07:43 Dose: Not Given Documented By: LASHONDA Non-Admin Reason: Previously Administered Sodium Chloride (0.9 % Sodium Chloride Flush 3 Ml Syringe) 3 ml IVFLUSH QSHIFT [facility] Last Admin: 12/22/23 07:45 Dose: 3 ml Documented By: LASHONDA Tiotropium [place] (Tiotropium [place] 2.5 Mcg 1 Puff/2.5 Mcg Mist.Inhal) 2 puff INHALE RDAILY [facility] Last Admin: 12/22/23 07:32 Dose: 2 puff Documented By: VIOLET Tramadol HCl (Tramadol Hcl 50 Mg Tablet) 25 mg PO Q6H PRN PRN Reason: Pain, Severe (Pain Scale 7-10) Last Admin: 12/22/23 01:14 Dose: 25 mg Documented By: MINERVA Labs 12/22/23 06:19 12/22/23 06:19 Labs: Laboratory Results - last 24 hr 12/21/23 12/22/23 12:27 06:19 MCV 93.4 93.1 MCH 30.3 29.8 MCHC 32.4 32.0 RDW 13.3 13.5 Plt Count 260 241 MPV 9.5 10.2 Immature Gran % (Auto) 0.7 H 0.2 Neut % (Auto) 63.8 57.5 Lymph % (Auto) 17.9 L 22.4 [place] % (Auto) 12.5 H 14.2 H Eos % (Auto) 5.0 H 5.3 H Baso % (Auto) 0.1 0.4 Lymph # (Auto) 1.3 1.3 [place] # (Auto) 0.9 0.8 Eos # (Auto) 0.4 0.3 Baso # (Auto) 0.0 0.0 Abs Immat Gran (auto) 0.05 H 0.01 Absolute Neuts (auto) 4.8 3.3 Absolute Nucleated RBC 0.000 0.000 Nucleated RBC % (auto) 0.0 0.0 Anion Gap 13 12 Estim Creat Clear Calc 21.4 28.0 Estimated GFR 45 > 60 Random Glucose 141 H 88 Calcium 9.3 8.8 Iron 27 L TIBC 222 L % Saturation 12 L Unsat Iron Binding 195 Total Bilirubin 0.4 AST 13 ALT 13 Alkaline Phosphatase 50 Troponin I High Sens 3.8 Total Protein 5.3 L Albumin 3.0 L Assessment and Plan (1) Syncope: Status: Acute Plan 80-year-old woman placed on observation after a syncopal episode while at [facility] Syncope reporting dizziness after taking medications monitor on telemetry> no arrhythmia noted overnight no orthostasis noted cardiology consultation echo Hypertension stable blood pressure hold carvedilol, losartan and chlorthalidone continue amlodipine Normocytic anemia Continue iron supplementation iron 27/tibc 222/%12 GERD Continue PPI Hyperlipidemia Continue aspirin and statin DVT prophylaxis with heparin Attending Dr. Gibson full code Quality Stroke Does the patient have a stroke diagnosis?: No VTE Prior VTE?: No VTE Risk Level:: Medical - moderate - high VTE Device Contraindication: Treatment Not Indicated VTE Drug Contraindication: N/A - Med Ordered
--- NOTE | 2023-12-22 10:35 | MHC.CM.PN ---
DEWEY 12/21. Pt self-care, lives alone at home, she uses a cane but only when going outside. Pts sister/HCP to transport her home at discharge. PCP: Dr. Jovanny Ricci
--- NOTE | 2023-12-22 12:02 | PM.CNCAR ---
History of Present Illness History of Present Illness Date of Service: 12/22/23 Requesting physician: Karol Verde Consult reason: other (Syncope) Chief complaint: Syncope Narrative: I was consulted to see Chichi in cardiology consultation today for syncopal episode. She is 88-year-old female who lives independently at home, with her sister as her close greeter. Patient came to the hospital with syncopal episode in the [facility]. It was witnessed and there were nurses in the [facility] and was felt that she did not have a pulse and this started doing CPR on her but she came around. Overall episode was short. Patient currently complains of bruising and pain in the precordial area at the site of compression. Patient says that she usually was not feeling well that day. Took her morning medicine around 9-10 a.m. and shortly after this started not feeling well. She says she felt lightheaded and nauseous. She did tell her sister but she then decided to go to the buddhism any way. Sister drove her and she was still feeling lightheaded. She was sitting in the pew and subsequently she passed out. There was no chest pain, shortness of breath, rapid heart rate or palpitations prior to passing out. She says that she had similar episode on Friday when she took current medicines in the morning and subsequently started feeling nauseous and lightheaded. She then just decided to rest and laid down. She did not lose consciousness on that day. She recently was to a primary care physician for annual visit and was noted to have generalized rash and was prescribed prednisone. She also has notice significantly anemic on November 20 and was told that she had iron-deficiency anemia and currently on iron pills. Remains still significantly anemic. Denies any recent bleeding issues, black stools or bright red blood per rectum. She has prior history of CVA. She denies any prolonged irregular heartbeat or palpitations. Denies any exertional chest pain. Review of Systems Constitutional: Constitutional: Reports no additional constitutional complaints PMFSH Past Medical History Medical History Hospital discharge follow-up Acute leg pain Facial paresthesia Swelling of lower extremity Right leg swelling Hypertensive urgency Constipation Frequent UTI Edema of left lower leg Leg cramping Primary hypertension Uncontrolled hypertension Left hip pain Left-sided weakness Left sided sciatica Adult general medical exam Screening for breast cancer Osteoarthritis of right hip Hospital discharge follow-up Vitamin D deficiency Hypercalcemia Multiple lacunar infarcts Hearing loss Urge urinary incontinence GERD (gastroesophageal reflux disease) COPD (chronic obstructive pulmonary disease) Hypertension Dyslipidemia Hypercalcemia Osteoporosis History of ductal carcinoma in situ (DCIS) of breast Family History Family History Father Heart failure CVD (cardiovascular disease) Mother Breast cancer Surgical History Surgical History History of right hip replacement History of colonoscopy History of lumpectomy of right breast History of pubovaginal sling H/O right inguinal hernia repair Social History Social History Household Members: None Housing: House Do you presently have visiting nurse or other home services: No Alcohol intake: former Patient Tobacco Use Status: Former Tobacco user Tobacco use type: Cigarette Smoked in Last 30 Days: No e-Cigarette/Vaping Use: Never Used Second Hand Smoke Exposure: No Use of substances other than those prescribed or required for medical reasons: No Currently Displaying Signs/Symptoms of Drug Intoxication Withdrawal: No Have you been hit, kicked, punched, or otherwise hurt by someone within the past year? If so, by whom?: No Do you feel safe in your current relationship?: Yes Is there a partner from a previous relationship who is making you feel unsafe now?: No Are you made to feel afraid or neglected: No Advance Directives: No Advance Directives Information Provided: No Advance Directives Date on File: 10/19/21 Do you have a plan to hurt others: No Plan Recently lost weight without trying: No Eating poorly because of decreased appetite: No Nutrition Risks: No Nutritional Risk Patient : No : No service: No Current occupational status: retired Cognitive needs: Yes (CANE) Hearing needs: Yes (hearing aide) Vision needs: No (glaases) Meds Allergies Allergy/AdvReac Type Severity Reaction Status Date / Time cephalexin [Keflex] Allergy Intermediate Unknown Verified 12/21/23 12:21 tetracycline [Tetracycline] Allergy Intermediate TONGUE Verified 12/21/23 12:21 SWOLLEN Active Medications: Current Medications Acetaminophen (Acetaminophen 325 Mg Tablet) 650 mg PO Q6H PRN PRN Reason: Pain, Mild (Pain Scale 1-3), fever or headache Last Admin: 12/22/23 04:19 Dose: 650 mg Amlodipine Besylate (Amlodipine Besylate 5 Mg Tablet) 5 mg PO DAILY [facility]; Protocol Last Admin: 12/22/23 08:20 Dose: 5 mg Aspirin (Aspirin Enteric Coated 81 Mg Tablet.) 81 mg PO DAILY [facility] Last Admin: 12/22/23 08:20 Dose: 81 mg Atorvastatin Calcium (Atorvastatin Calcium 40 Mg Tablet) 40 mg PO BEDTIME [facility] Calcium Carbonate (Calcium Carbonate 750 Mg Tab.Chew) 750 mg PO Q4H PRN PRN Reason: Heartburn Docusate Sodium (Docusate Sodium 100 Mg Capsule) 100 mg PO BID [facility] Last Admin: 12/22/23 08:20 Dose: 100 mg Ezetimibe (Ezetimibe 10 Mg Tablet) 10 mg PO BEDTIME [facility] Last Admin: 12/21/23 22:17 Dose: 10 mg Heparin Sodium (Porcine) (Heparin Sodium,Porcine 5,000 Unit/Ml Vial) 5,000 unit SUBCUT Q12H [facility] Last Admin: 12/22/23 04:03 Dose: 5,000 unit Hydrochlorothiazide (Hydrochlorothiazide 25 Mg Tablet) 25 mg PO DAILY [facility] Last Admin: 12/22/23 08:20 Dose: 25 mg Losartan Potassium (Losartan Potassium 50 Mg Tablet) 100 mg PO DAILY [facility]; Protocol Last Admin: 12/22/23 08:20 Dose: 100 mg Magnesium Hydroxide (Milk Of Magnesia 30 Ml Oral.Susp) 30 ml PO DAILY PRN PRN Reason: Constipation Melatonin (Melatonin 3 Mg Tablet) 6 mg PO BEDTIME PRN PRN Reason: Insomnia Non-Formulary Medication (Vibegron [Gemtesa]) 75 mg PO DAILY [facility] Omeprazole (Omeprazole 20 Mg Capsule.) 20 mg PO DAILY@0630 [facility] Last Admin: 12/22/23 07:43 Dose: Not Given Sodium Chloride (0.9 % Sodium Chloride Flush 3 Ml Syringe) 3 ml IVFLUSH QSHIFT [facility] Last Admin: 12/22/23 07:45 Dose: 3 ml Tiotropium [place] (Tiotropium [place] 2.5 Mcg 1 Puff/2.5 Mcg Mist.Inhal) 2 puff INHALE RDAILY [facility] Last Admin: 12/22/23 07:32 Dose: 2 puff Tramadol HCl (Tramadol Hcl 50 Mg Tablet) 25 mg PO Q6H PRN PRN Reason: Pain, Severe (Pain Scale 7-10) Last Admin: 12/22/23 10:20 Dose: 25 mg Home Medications ?Medication ?Instructions ?Recorded ?Confirmed ?Last Taken ?Type aspirin 81 mg tablet,delayed 81 mg PO DAILY 02/24/20 12/21/23 12/21/23 History release (Adult Aspirin Regimen) denosumab 60 mg/mL subcutaneous 60 mg subcut [id number] 05/16/20 12/21/23 05/22/21 History syringe (Prolia) docusate sodium 100 mg capsule 100 mg PO BID 09/24/23 12/21/23 12/21/23 History (Colace) acetaminophen 650 mg 1,300 mg PO Q6H PRN Pain (Scale 12/21/23 12/21/23 Unknown History tablet,extended release (Tylenol Score 1-3) Arthritis Pain) ezetimibe 10 mg tablet 10 mg PO BEDTIME 12/21/23 12/21/23 Unknown History rosuvastatin 10 mg tablet 10 mg PO BEDTIME 12/21/23 12/21/23 Unknown History tiotropium bromide 1.25 2 puff inhalation DAILY 12/21/23 12/21/23 Unknown History mcg/actuation mist for inhalation (Spiriva Respimat) triamcinolone acetonide 0.5 % 1 appl topical DAILY PRN Rash 12/21/23 12/21/23 Unknown History topical cream Physical Exam Vital Signs: Vital Signs: Last Vital Signs Temp 98.8 F 12/22/23 11:21 Pulse 54 12/22/23 11:21 Resp 18 12/22/23 11:21 BP 136/64 12/22/23 11:21 Pulse Ox 98 12/22/23 11:21 O2 Del Method Room Air 12/22/23 11:21 BMI result Body Mass Index 22.7 Const: General: cooperative, alert, awake and in distress other (Discomfort in the left anterior ribcage) Nutritional Appearance: underweight and other (Frail appearing) Orientation/consciousness: patient oriented x3 Limitations: no limitations HEENT: Head: Yes normocephalic and Yes atraumatic Neck: Neck: Yes trachea midline, Yes supple and Yes no JVD Resp: Effort & Inspection: normal respiratory effort Auscultation: clear to auscultation bilaterally Cardio: Jugular venous distension: no JVD Rate: regular rate Rhythm: regular rhythm Heart sounds: S1 normal heart sound present, S2 normal heart sound present, no click, no gallops and Murmur heart sound present systolic GI: Auscultation: normal bowel sounds Skin: General skin exam: no rashes or lesions noted and ecchymosis Neuro: General: patient oriented x3 and no focal motor deficits Extrem: General: Yes no clubbing, cyanosis or edema Objective Labs and Meds 12/22/23 06:19 12/22/23 06:19 Lab results: Laboratory Results - last 24 hr 12/21/23 12/22/23 12:27 06:19 WBC 7.5 5.7 RBC 2.74 L 2.75 L Hgb 8.3 L 8.2 L Hct 25.6 L 25.6 L MCV 93.4 93.1 MCH 30.3 29.8 MCHC 32.4 32.0 RDW 13.3 13.5 Plt Count 260 241 MPV 9.5 10.2 Immature Gran % (Auto) 0.7 H 0.2 Neut % (Auto) 63.8 57.5 Lymph % (Auto) 17.9 L 22.4 [place] % (Auto) 12.5 H 14.2 H Eos % (Auto) 5.0 H 5.3 H Baso % (Auto) 0.1 0.4 Lymph # (Auto) 1.3 1.3 [place] # (Auto) 0.9 0.8 Eos # (Auto) 0.4 0.3 Baso # (Auto) 0.0 0.0 Abs Immat Gran (auto) 0.05 H 0.01 Absolute Neuts (auto) 4.8 3.3 Absolute Nucleated RBC 0.000 0.000 Nucleated RBC % (auto) 0.0 0.0 Sodium 141 142 Potassium 4.3 3.6 Chloride 108 110 H Carbon Dioxide 24 24 Anion Gap 13 12 BUN 38 H 29 H Creatinine 1.15 0.88 Estim Creat Clear Calc 21.4 28.0 Estimated GFR 45 > 60 Random Glucose 141 H 88 Calcium 9.3 8.8 Iron 27 L TIBC 222 L % Saturation 12 L Unsat Iron Binding 195 Total Bilirubin 0.4 AST 13 ALT 13 Alkaline Phosphatase 50 Troponin I High Sens 3.8 Total Protein 5.3 L Albumin 3.0 L Imaging Radiologist's impression: Impressions Chest X-Ray 12/21/23 13:20 IMPRESSION: No acute pulmonary process is seen. Electronically signed by: Kermit Salgado MD 12/21/2023 02:51 PM EDT RP Assessment and Plan (1) Syncope: Status: Acute Syncopal episode in this elderly woman without any obvious cardiac arrhythmias. Clinically appears to be orthostatic in the setting of significant anemia as well as relatively poor overall oral fluid intake and happening after taking a morning medications. She is probably becoming significantly hypotensive subsequently syncopized with orthostasis related to medical therapy with underlying general medical setting. I have advised her to increase her fluid intake. Also I think she would benefit from altering the timing of medication switching her amlodipine to nighttime. Advised to monitor blood pressure at home and maintain a log. We discussed about orthostatic precautions and when she is not feeling well she is advised to seek sitting or supine position till the symptoms passed. Further treatment based on the findings of home blood pressure recordings. Also anemia needs to be aggressively evaluated and treated. Make sure that she has not had any recent significant GI bleeding. Will review the echocardiogram although unlikely that she has underlying significant structural issues. Although to complete workup will follow-up with outpatient event monitor which will be scheduled. Will follow up in 2 months time after event monitoring. Thank you for allowing me to partake in the care Procedures Date of Service Date of Service: 12/22/23
--- NOTE | 2023-12-22 16:38 | PC.NURSE ---
PER Karol Max , hold Amlodipine tonight
[2023-12-22] MEDS: Atorvastatin Calcium 40 MG TABLET PO (21:11)
[2023-12-22] MEDS: Ezetimibe 10 MG TABLET PO (21:11)
[2023-12-23] MEDS: Acetaminophen 325 MG TABLET 650 MG PO ×2 (03:34→12:26)
[2023-12-23] MEDS: Heparin Sodium,Porcine 5,000 UNIT/ML VIAL 5000 UNIT SUBCUT (03:34)
[2023-12-23 04:00] VITALS: BP 139/63; PULSE 67; RESP 15; TEMP 36.2; O2SAT 96
[2023-12-23 07:09] VITALS: BP 146/65; PULSE 64; RESP 18; TEMP 36.7; O2SAT 95
[2023-12-23] MEDS: Omeprazole 20 MG CAPSULE.DR PO (07:39)
[2023-12-23] MEDS: 0.9 % Sodium Chloride Flush 3 ML SYRINGE IVFLUSH (07:40)
[2023-12-23 07:45] VITALS: BP 135/64; PULSE 61
[2023-12-23 07:46] VITALS: BP 132/63; BP 150/70; PULSE 59; PULSE 65
[2023-12-23] MEDS: Tiotropium Bromide 2.5 mcg 1 PUFF/2.5 MCG MIST.INHAL 2 PUFF INHALE (08:13)
[2023-12-23 08:14] VITALS: PULSE 60; RESP 18; O2SAT 96
[2023-12-23] MEDS: Aspirin Enteric Coated 81 MG TABLET.DR PO (08:56)
[2023-12-23] MEDS: Docusate Sodium 100 MG CAPSULE PO (08:56)
[2023-12-23] MEDS: PT OWN (Vibegron [Gemtesa] 75 mg tablet) 75 EACH PO (08:57)
[2023-12-23] MEDS: traMADoL HCL 50 MG TABLET 25 MG PO (10:56)
[2023-12-23 11:09] VITALS: BP 151/66; PULSE 62; RESP 18; TEMP 37.2; O2SAT 98
--- NOTE | 2023-12-23 11:17 | P.DS_ITS ---
DS: Providers Provider Date of Service: 12/23/23 Date of admission: 12/21/23 15:50 Primary care physician: Jovanny Ricci MD Consults: 12/21/23 15:51 Consult to Cardiology Routine Consulting Provider: [facility] [place] [facility] Reason for consultation: syncope DS: Diagnosis Discharge Diagnosis (1) Syncope: Status: Acute DS: Summary Hospital Course Hospital Course: History and physical as per admitting provider. 88-year-old woman presenting to the ER after a syncopal episode at [facility]. Apparently patient was found unresponsive and possibly pulseless and CPR was started. She received for chest compressions. Patient stated that she remembered just prior she felt off and had some stomach upset but did not remember losing consciousness. He did report that about a week ago she had been working in the garden developed a rash and swelling to her face and arms. She was treated with oral prednisone from her primary care provider but other than that she has been in her usual state of health. She lives alone and is pretty independent. On arrival EMS noted that the patient was awake and alert and able to tell what had happened. Patient reports feeling in her normal state of health this morning. She denied nausea, vomiting, diarrhea, chest pain, shortness of breath, fever, recent illness, recent travel, sick contacts. Chest x-ray negative for consolidation or effusion. Labs noted to be within acceptable limits, vital signs stable. Orthostatic blood pressures negative. Patient will be placed on observation for syncope. 88-year-old woman treated for syncope secondary to orthostatic hypotension. She did report some dizziness after taking her medications. Her chlorthalidone, losartan hydrochlorothiazide was stopped. Her amlodipine was changed to bedtime. Her blood pressures have remained stable with systolic blood pressures anywhere from 130-150. She has no complaints of dizziness, nor arrhythmia or bradycardia noted on telemetry. She was seen evaluated by Cardiology with no further recommendation for treatment other than changing amlodipine to bedtime. Her echocardiogram showed normal EF no significant aortic stenosis. She was also noted to have some normocytic anemia but above transfusion threshold during hospitalization, she may continue her iron supplementation. Plan is to discharge patient home and she should record blood pressures daily to share with her primary care provider to adjust her medications as needed. GERD. Continue PPI Hyperlipidemia. Continue aspirin and statin Time Attestation Discharge Coordination Time (in mins): 34 Quality: Safe Use of Opioids Does Pt have an Active Cancer Diagnosis on the Problem List?: No Quality: Stroke Does the patient have a stroke diagnosis?: No Physical Exam Vital Signs: Vital Signs: Last Vital Signs Temp 98.9 F 12/23/23 11:09 Pulse 62 12/23/23 11:09 Resp 18 12/23/23 11:09 BP 151/66 H 12/23/23 11:09 Pulse Ox 98 12/23/23 11:09 O2 Del Method Room Air 12/23/23 11:09 BMI result Body Mass Index 22.7 Appearing in no acute distress head is normocephalic atraumatic eyes pupils are PERRLA sclera is anicteric mouth throat mucous membranes are intact and moist neck is supple no lymphadenopathy, no JVD noted lung sounds are clear to auscultation heart regular rate rhythm, clear S1, S2 positive bowel sounds, abdomen is soft, nontender neuro patient is alert x3, no focal deficits Discharge Plan Discharge Anticipated Discharge Date/Time: 12/23/23 11:02 Patient Disposition: Home, Self-Care Discharge Diagnosis: Syncope Orthostatic hypotension Musculoskeletal chest pain Referrals: Jovanny Ricci MD [Primary Care Provider] - 1 Week Discharge Medications: New tramadol 25 mg tablet 25 mg PO Q6H PRN (Reason: pain) Qty: 12 0RF Continued (DME) gemini Recinos See Rx Instructions .Route Qty: 1 0RF Rx Instructions: Luis singletary lansoprazole 30 mg capsule,delayed release(DR/EC) 30 mg PO DAILY@0630 Qty: 90 3RF Gemtesa 75 mg tablet 75 mg PO DAILY 90 Days Qty: 90 1RF triamcinolone acetonide 0.5 % cream 1 appl topical DAILY PRN (Reason: Rash) acetaminophen [Tylenol Arthritis Pain] 650 mg tablet extended release 1,300 mg PO Q6H PRN (Reason: Pain (Scale Score 1-3)) ezetimibe 10 mg tablet 10 mg PO BEDTIME rosuvastatin 10 mg tablet 10 mg PO BEDTIME Spiriva Respimat 1.25 mcg/actuation mist 2 puff inhalation DAILY Prolia 60 mg/mL syringe 60 mg subcut [id number] Rx Instructions: Last dose sometime in November 2023 per patient docusate sodium [Colace] 100 mg capsule 100 mg PO BID aspirin [Adult Aspirin Regimen] 81 mg tablet,delayed release (DR/EC) 81 mg PO DAILY Changed amlodipine 5 mg tablet 5 mg PO BEDTIME 90 Days Qty: 90 1RF Discontinued losartan 100 mg tablet 100 mg PO DAILY 90 Days Qty: 90 3RF chlorthalidone 25 mg tablet 25 mg PO DAILY 90 Days Qty: 90 1RF carvedilol 12.5 mg tablet 12.5 mg PO BID 90 Days Qty: 180 3RF Rx Instructions: must administer with a meal/food Discharge Orders: Discharge Order (Routine); Ordered 12/23/23 Ordered By: Karol Verde Diet: Advance to usual diet Activity on Discharge: As tolerated Stand Alone Forms: Patient Portal Discharge page Print Language: Rwandan Care Plan Goals: -Check blood sugars daily and document to share with your primary care provider -Take your amlodipine at bedtime -Your carvedilol, chlorthalidone and losartan have been stopped due to orthostatic hypotension, if your blood pressure starts to increase the primary care provider may consider restarting these medications -May use warm compresses for musculoskeletal chest pain Health Concerns: Syncope Orthostatic hypotension Musculoskeletal chest pain Plan of Treatment: Follow-up with primary care provider as needed Take all medications as prescribed Assessment: See discharge summary
--- NOTE | 2023-12-23 11:28 | MHC.CM.PN ---
Pt has been medically cleared for DC, she will go home via family transport, plan is self care.
== END 2023-12-23 12:30 | disposition home or self-care (01) ==
LOC: HO.ED 15:22 → HO.EDOVER 15:54 → HO.IMC 17:18
PROVIDERS: Admitting Provider Nurse Practitioner Acute Care; Emergency Provider Emergency Medicine; PCP Student in an Organized Health Care Education/Training Program; Visit Provider Nurse Practitioner Acute Care
DX: I95.1 Orthostatic hypotension (principal); R07.9 Chest pain, unspecified; J44.9 Chronic obstructive pulmonary disease, unspecified; I10 Essential (primary) hypertension; Z85.3 Personal history of malignant neoplasm of breast; Z79.899 Other long term (current) drug therapy
CPT/HCPCS: 36415; 71045; 80048; 80053; 83540; 84484; 85025; 93005; 93306; 94640; 96372; 99222; 99285; J1644; Q9957

== ENCOUNTER 2023-12-21 15:50 | Outpatient (BNV) | payer MEDICARE, OTHER, SELFPAY | END 2023-12-22 07:00 | PROVIDERS: Admitting Provider Nurse Practitioner Acute Care; Emergency Provider Emergency Medicine; PCP Student in an Organized Health Care Education/Training Program; Visit Provider Internal Medicine Cardiovascular Disease | DX: I35.8 Other nonrheumatic aortic valve disorders (principal); I34.81 Nonrheumatic mitral (valve) annulus calcification; I42.2 Other hypertrophic cardiomyopathy | CPT/HCPCS: 93306 ==

== ENCOUNTER → 2023-12-21 15:50 | Outpatient (BNV) | payer MEDICARE, OTHER, SELFPAY | PROVIDERS: Admitting Provider Nurse Practitioner Acute Care; Emergency Provider Emergency Medicine; PCP Student in an Organized Health Care Education/Training Program; Visit Provider Internal Medicine Cardiovascular Disease | DX: R55 Syncope and collapse (principal) | CPT/HCPCS: 99222 ==

== ENCOUNTER → 2023-12-21 15:50 | Outpatient (BNV) | payer MEDICARE, OTHER, SELFPAY | PROVIDERS: Admitting Provider Nurse Practitioner Acute Care; Emergency Provider Emergency Medicine; PCP Student in an Organized Health Care Education/Training Program; Visit Provider Nurse Practitioner Acute Care | DX: R55 Syncope and collapse (principal) | CPT/HCPCS: 99223; 99232; 99239 ==

== ENCOUNTER 2023-12-25 19:15 | Emergency (ER) | payer MEDICARE, OTHER, SELFPAY ==
[2023-12-25 19:25] VITALS: BP 180/74; PULSE 75; O2SAT 99
[2023-12-25 19:35] VITALS: BP 167/48; PULSE 71; RESP 18; TEMP 36.9; O2SAT 98; BMI 20.3
[2023-12-25 19:36] VITALS: BP 167/48; PULSE 70; RESP 18; TEMP 36.9; O2SAT 97
[2023-12-25 20:12] LABS: MANUAL DIFF FLAG NO
[2023-12-25 20:14] LABS: Basophils Percent Auto 0.4 % (0-2); Eosinophils Absolute Auto 0.4 X10*3/uL (0.0-0.4); Eosinophils Percent Auto 4.8 % (0-4); Hemoglobin 7.9 g/dl (12.0-16.0); Imm Gran Abs Auto 0.01 X10*3/uL (0.00-0.03); Imm Gran Pct Auto 0.1 % (0.0-0.4); Lymphocytes Absolute Auto 1.2 X10*3/uL (1.2-4.9); Lymphocytes Percent Auto 15.6 % (20-40); Mean Corpuscular HGB Conc 32.9 g/dl (31.0-35.0); Mean Corpuscular Hemoglobin 29.8 pg (27.0-33.0); Mean Corpuscular Volume 90.6 fL (80.0-98.0); Mean Platelet Volume 9.2 fL (9.4-12.3); Monocytes Absolute Auto 0.8 X10*3/uL (0.1-1.2); Monocytes Percent Auto 10.3 % (2-11); Neutrophils Absolute Auto 5.1 x10*3/uL (2.0-8.3); Neutrophils Percent Auto 68.8 % (45-73); Platelet Count 235 X10*3/uL (160-400); Red Blood Count 2.65 X10*6/uL (4.20-5.50); Red Cell Distribution Width 13.3 % (11.0-16.0); White Blood Count 7.5 X10*3/uL (4.8-10.8)
[2023-12-25 20:33] LABS: Anion Gap 13 (12-20); Blood Urea Nitrogen 42 mg/dL (9-16); Calcium 8.9 mg/dL (8.4-10.2); Carbon Dioxide 22 mmol/L (22-29); Chloride 105 mmol/L (96-108); Creatinine Clr Calc Pharmacy 26.6; Estimated Glomerular Filt Rate 60; Glucose Random 122 mg/dL (60-115); Potassium 3.4 mmol/L (3.3-5.1); Sodium 137 mmol/L (135-145)
[2023-12-25 20:43] LABS: Troponin-I High Sensitivity 3.7 ng/L (<3.5-17.0)
--- OUTSIDE RECORDS SUMMARY | 2023-12-25 20:50 | XMS_ITS | Continuity of Care Document ---
Author Organization [facility] Address [address] [place] [address]- Care Team Providers Care Wireless Field Technician Name Role Phone Radhames Duron MD, Shirin Gooden Primary Care Physician [id number] Date(s): 08/20/23 - 09/28/[address] [address]- Attending Physician: Shirin Magana MD Admitting Physician: Shirin Magana MD Referring Physician: Gene Don MD Allergies, Adverse Reactions, Alerts Substance Reaction Severity Status tetracyclines unknown Active Keflex unknoiwn Active Lobster Active Immunizations Given and Recorded Vaccine Date Status Refusal Reason SARS-CoV-2 (COVID-19) mRNA BNT-162b2 vac 06/16/20 Given Medications acetaminophen 325 mg oral tablet 650 mg, By Mouth, Every 6 hours, Refills 0, Maintenance, 08/22/23 10:59:00 EDT, Partial fill upon patient request if the prescription is for a schedule II opioid drug. Start Date: 08/22/23 Status: Ordered amLODIPine 5 mg oral tablet 1 tablet = 5 mg, By Mouth, Daily, # 30 tablet, 0 Refills, Maintenance, 07/31/23 12:17:00 EDT, Tablet, Partial fill upon patient request if the prescription is for a schedule II opioid drug. Start Date: 07/31/23 Status: Ordered aspirin 81 mg oral capsule 1 capsule = 81 mg, By Mouth, Daily, do not exceed 48 capsules in 24 hours, # 30 capsule, 0 Refills,Maintenance, 08/21/23 8:30:00 EDT, Capsule, Partial fill upon patient request if the prescription is for a schedule II opioid drug. Start Date: 08/21/23 Status: Ordered carvedilol 12.5 mg oral tablet 12.5 mg, 1, tablet, By Mouth, 2 times a day, # 60 tablet, Refills 0, Maintenance, 07/31/23 12:16:00EDT, Partial fill upon patient request if the prescription is for a schedule II opioid drug. Start Date: 07/31/23 Status: Ordered chlorthalidone 25 mg oral tablet 25 mg, 1, tablet, By Mouth, Daily, # 30 tablet, Refills 0, Maintenance, 07/31/23 12:14:00 EDT, Partial fill upon patient request if the prescription is for a schedule II opioid drug. Start Date: 07/31/23 Status: Ordered Colace Capsule 100 mg, 1, capsule, By Mouth, 2 times a day, Refills 0, Maintenance, 08/22/23 10:59:00 EDT, Partialfill upon patient request if the prescription is for a schedule II opioid drug. Start Date: 08/22/23 Status: Ordered Eliquis 2.5 mg oral tablet 1 tablet = 2.5 mg, By Mouth, 2 times a day, # 60 tablet, 0 Refills, Maintenance, 08/22/23 10:37:00 EDT, Tablet, Partial fill upon patient request if the prescription is for a schedule II opioid drug. Start Date: 08/22/23 Stop Date: 09/21/23 Status: Ordered ezetimibe 10 mg oral tablet 1 tablet = 10 mg, By Mouth, Daily, # 30 tablet, 0 Refills, Maintenance, 07/31/23 12:15:00 EDT, Tablet, Partial fill upon patient request if the prescription is for a schedule II opioid drug. Start Date: 07/31/23 Status: Ordered Gemtesa 75 mg oral tablet 1 tablet = 75 mg, By Mouth, Daily, # 30 tablet, 0 Refills, Maintenance, 07/31/23 12:16:00 EDT, Tablet, Partial fill upon patient request if the prescription is for a schedule II opioid drug. Start Date: 07/31/23 Status: Ordered lansoprazole 30 mg oral enteric coated capsule 1 capsule = 30 mg, By Mouth, Daily, # 30 capsule, 0 Refills, Maintenance, 07/31/23 12:16:00 EDT, ECCapsule, Partial fill upon patient request if the prescription is for a schedule II opioid drug. Start Date: 07/31/23 Status: Ordered losartan 100 mg oral tablet 1 tablet = 100 mg, By Mouth, Daily, # 30 tablet, 0 Refills, Maintenance, 07/31/23 12:17:00 EDT, Tablet, Partial fill upon patient request if the prescription is for a schedule II opioid drug. Start Date: 07/31/23 Status: Ordered MiraLax Powder 1 pack/packet = 17 Gm, By Mouth, Daily, 0 Refills, Maintenance, 08/22/23 10:59:00 EDT, Powder, Partial fill upon patient request if the prescription is for a schedule II opioid drug. Start Date: 08/22/23 Status: Ordered nitrofurantoin macrocrystals 100 mg oral capsule 1 capsule = 100 mg, By Mouth, Daily at supper, # 40 capsule, 0 Refills, Maintenance, 07/31/23 12:15:00 EDT, Capsule, Partial fill upon patient request if the prescription is for a schedule II opioid drug. Start Date: 07/31/23 Stop Date: 08/10/23 Status: Ordered rosuvastatin 10 mg oral tablet 1 tablet = 10 mg, By Mouth, Daily, # 30 tablet, 0 Refills, Maintenance, 07/31/23 12:15:00 EDT, Tablet, Partial fill upon patient request if the prescription is for a schedule II opioid drug. Start Date: 07/31/23 Status: Ordered senna 187 mg oral tablet 1 tablet = 8.6 mg, By Mouth, Daily at bedtime, 0 Refills, Maintenance, 08/22/23 10:59:00 EDT, Tablet, Partial fill upon patient request if the prescription is for a schedule II opioid drug. Start Date: 08/22/23 Status: Ordered Spiriva Respimat 1.25 mcg/inh inhalation aerosol 2 puffs = 2.5 mcg, Inhalation, Daily, # 4 Gm, 0 Refills, Maintenance, 07/31/23 12:17:00 EDT, Aerosol, Partial fill upon patient request if the prescription is for a schedule II opioid drug. Start Date: 07/31/23 Status: Ordered Problem List Condition Confirmation Course Effective Dates Status H ealth Status Informant Anemia Confirmed Active Chronic obstructive pulmonary disease (COPD) Confirmed Active GERD (gastroesophageal reflux disease) Confirmed Active History of CVA (cerebrovascular accident) Confirmed Active History of breast cancer Confirmed Active HLD (hyperlipidemia) Confirmed Active HTN (hypertension) Confirmed Active Primary osteoarthritis of right hip Confirmed Active Social History Social History Type Response Smoking Status Former smoker, quit more than 30 days ago entered on: 07/31/23 Sex Patient Care team information Care Team Personnel Name: Mandy Duran RN Position: S RN Member Role: Primary Care Nurse Name: Shirin Magana MD Position: Reference Physician Member Role: PCP Address: Address: [address] [facility] [address] [place], [place] [address] Name: Love Benz RN Position: S RN Member Role: Primary Care Nurse Care Team Related Persons Name: JANE RAUSCH
--- OUTSIDE RECORDS SUMMARY | 2023-12-25 20:50 | XMS_ITS | Continuity of Care Document ---
Author Organization [facility] Address [address] [place] [address]- Care Team Providers Care Mess Cook Name Role Phone Radhames Duron MD, Halima Primary Care Physician Encounter [facility] Date(s): 07/30/23 - 08/29/[address] [address]- Attending Physician: Eboni Gaming Admitting Physician: AdmtrEboni Referring Physician: Admtr, Ar8 Allergies, Adverse Reactions, Alerts Substance Reaction Severity [...] Reference Physician Member Role: PCP Address: Address: [address] [place] [address] [place] [id number] Name: Love Benz RN Position: S RN Member Role: Primary Care Nurse Care Team Related Persons Name: JANE RAUSCH
--- OUTSIDE RECORDS SUMMARY | 2023-12-25 20:50 | XMS_ITS | Continuity of Care Document ---
Author Organization [facility] Address [address] [place] [address]- Care Team Providers Care Guard Sergeant Name Role Phone Radhames Duron MD, Halima Primary Care Physician [place] [facility] [place] - 09/28/[address] [address]- Attending Physician: Eboni Gaming Admitting Physician: AdmtrEboni [...] Reference Physician Member Role: PCP Address: Address: [address] [place] [address] [address] [place] [id number] Name: Love Benz RN Position: S RN Member Role: Primary Care Nurse Care Team Related Persons Name: JANE RAUSCH
--- OUTSIDE RECORDS SUMMARY | 2023-12-25 20:50 | XMS_ITS | Continuity of Care Document ---
Author Organization [facility] ter Address [address] [place] [address]- Care Team Providers [employer] Lieutenant Name Role Phone Radhames Duron MD, Shirin Gooden Primary Care Physician [phone] [facility] [place] [id number] Date(s): 08/22/23 - 08/25/[address] [address]- Discharge Disposition: A-Transfer SNF Attending Physician: Gene Don MD Admitting Physician: Gene Don MD Referring Physician: Gene Don MD Allergies, [...] opioid drug. Start Date: 08/22/23 Status: Ordered Acetaminophen Tablet 650 mg, Tablet, By Mouth, 08/25/23 6:01:00 EDT Start Date: 08/25/23 Stop Date: 08/25/23 Status: Completed amLODIPine 5 mg oral tablet 1 tablet [...] carvedilol 12.5 mg oral tablet 12.5 mg, Tablet, By Mouth, 08/25/23 8:00:00 EDT Start Date: 08/25/23 Stop Date: 08/25/23 Status: Completed carvedilol 12.5 mg oral tablet 12.5 mg, [...] Date: 07/31/23 Stop Date: 08/10/23 Status: Ordered oxyCODONE 5 mg oral tablet See Instructions, PRN, 1-2 tablets By Mouth Every 4 hours, # 84 tablet, Refills 0, Tot. Refills 0, Acute 08/29/23 10:36:00 EDT, Pain , Severe, 08/22/23 10:36:00 EDT, Instructions Replace Required Details, Print Requisition, Partial fill upon patient... Start Date: 08/22/23 Stop Date: 08/29/23 Status: Ordered OxyCODONE IR Tablet 5 mg, Tablet, By Mouth, Every 4 hours, PRN for Pain , Moderate, Routine, 08/21/23 11:32:00 EDT Start Date: 08/21/23 Stop Date: 08/28/23 Status: Ordered rosuvastatin 10 mg oral tablet [...] opioid drug. Start Date: 07/31/23 Status: Ordered traMADol 50 mg oral tablet See Instructions, PRN Pain , Mild, 1-2 tablets By Mouth Every 6 hours not to exceed 400 mg/day, # 56 tablet, 0 Refills, Acute 08/29/23 10:36:00 EDT, 08/22/23 10:35:00 EDT, Tablet, Partial fill upon patient request if the prescription is for a schedu... Start Date: 08/22/23 Stop Date: 08/29/23 Status: Ordered Problem List Condition Confirmation Course Effective Dates Status H ealth Status Informant Anemia Confirmed Active Chronic obstructive pulmonary disease (COPD) Confirmed Active GERD (gastroesophageal reflux disease) Confirmed Active History of CVA (cerebrovascular accident) Confirmed Active History of breast cancer Confirmed Active HLD (hyperlipidemia) Confirmed Active HTN (hypertension) Confirmed Active Primary osteoarthritis of right hip Confirmed Active Results Radiology Reports * Exam Date Time Procedure Performing Provider Status 08/21/23 12:01 PM C-Arm < 1 Hour Mary Juares; Auth ( Verified) Notes: (C-Arm < 1 Hour) Reason For Exam: Right total arthroplasty, OA right hip; tt 25min ft 11sec RESULT: C-Arm < 1 Hour C-Arm < 1 Hour INDICATION: Reason: Right total arthroplasty, OA right hip; tt 25min ft 11sec; Special Instructions: tt 25min ft 11sec COMPARISONS: None TECHNIQUE: Fluoroscopy support was provided. There was no radiologist in attendance. FLUOROSCOPY TIME: 11 seconds EXPOSURE: 0.3700 Gycm2 (Dose Area Product) TECHNOLOGIST TIME: 25 minutes FINDINGS: Fluoroscopy support was provided. There was no radiologist in attendance. IMPRESSION: See above. WSN: [id number] Ordering Physician: Gene Don Dictated By: Pablo Cintron MD Dictated Date/Time: 08/22/23 7:12 am Reviewed By: Pablo Cintron MD Signed By: Pablo Cintron MD Signed Date/Time: 08/22/23 7:12 am Transcribed By: HAZEL Transcribed Date/Time: 08/21/23 7:21 pm * Exam Date Time Procedure Performing Provider Status 08/21/23 1:03 PM Pelvis 1 or 2 Views Pablo Rainey; Delano valdes Notes: (Pelvis 1 or 2 Views) Reason For Exam: Postop Prosthesis RESULT: Pelvis 1 or 2 Views Pelvis 1 or 2 Views, Pelvis 1 or 2 Views INDICATION: Reason: OA rt hip, rt total hip arthroplasty; tt 25min ft 11sec; Special Instructions: tt 25min ft 11sec COMPARISONS: None TECHNIQUE: Fluoroscopy support was provided. There was no radiologist in attendance. FLUOROSCOPY TIME: 11 seconds EXPOSURE: 0.3700 Gycm2 (Dose Area Product) TECHNOLOGIST TIME: 25 minutes FINDINGS: Multiple fluoroscopic images of the lower pelvis and right hip obtained by the portable image intensifier are available for review and interpretation. A cementless total right hip arthroplasty was performed using computer assisted musculoskeletal navigational techniques. The acetabular and the femoral components are in good position. Please refer to the operative report for more details. IMPRESSION: See above. WSN: [id number] Ordering Physician: Gene Don Dictated By: Micah Payton MD, V Dictated Date/Time: 08/21/23 12:11 p Reviewed By: Micah Payton MD, V Signed By: Micah Payton MD, V Signed Date/Time: 08/21/23 12:11 pm Transcribed By: HAZEL Transcribed Date/Time: 08/21/23 12:09 pm ADDENDUM: Pelvis 1 or 2 Views Clinical history: Total right hip arthroplasty. EXAMINATION: Pelvis one view. FINDINGS: A single postop portable view of the lower pelvis shows evidence of a cementless total right hip arthroplasty with the acetabular and femoral components in excellent position. Mild degenerative change left hip. Mild degenerative change both SI joints. Please refer to the operative report for more details. IMPRESSION: Satisfactory postoperative changes of a total cementless right hip arthroplasty as described above. WSN: [id number] Ordering Physician: Gene Don Dictated By: Micah Payton MD, V Dictated Date/Time: 08/21/23 1:05 pm Reviewed By: Micah Payton MD, V Signed By: Micah aPyton MD, V Signed Date/Time: 08/21/23 1:05 pm Transcribed By: HAZEL Transcribed Date/Time: 08/21/23 1:02 pm * Exam Date Time Procedure Performing Provider Status 08/21/23 12:00 PM Pelvis 1 or 2 Views Mary Juares; M odified Notes: (Pelvis 1 or 2 Views) Reason For Exam: OA rt hip, rt total hip arthroplasty; tt 25min ft 11sec RESULT: Pelvis 1 or 2 Views Pelvis 1 or 2 Views, Pelvis 1 or 2 Views INDICATION: Reason: OA rt hip, rt total hip arthroplasty; tt 25min ft 11sec; Special Instructions: tt 25min ft 11sec COMPARISONS: None TECHNIQUE: Fluoroscopy support was provided. There was no radiologist in attendance. FLUOROSCOPY TIME: 11 seconds EXPOSURE: 0.3700 Gycm2 (Dose Area Product) TECHNOLOGIST TIME: 25 minutes FINDINGS: Multiple fluoroscopic images of the lower pelvis and right hip obtained by the portable image intensifier are available for review and interpretation. A cementless total right hip arthroplasty was performed using computer assisted musculoskeletal navigational techniques. The acetabular and the femoral components are in good position. Please refer to the operative report for more details. IMPRESSION: See above. WSN: [id number] Ordering Physician: Gene Don Dictated By: Micah Payton MD, V Dictated Date/Time: 08/21/23 12:11 p Reviewed By: Micah Payton MD, V Signed By: Micah Payton MD, V Signed Date/Time: 08/21/23 12:11 pm Transcribed By: HAZEL Transcribed Date/Time: 08/21/23 12:09 pm ADDENDUM: Pelvis 1 or 2 Views Clinical history: Total right hip arthroplasty. EXAMINATION: Pelvis one view. FINDINGS: A single postop portable view of the lower pelvis shows evidence of a cementless total right hip arthroplasty with the acetabular and femoral components in excellent position. Mild degenerative change left hip. Mild degenerative change both SI joints. Please refer to the operative report for more details. IMPRESSION: Satisfactory postoperative changes of a total cementless right hip arthroplasty as described above. WSN: [id number] Ordering Physician: Gene Don Dictated By: Micah Payton MD, V Dictated Date/Time: 08/21/23 1:05 pm Reviewed By: Micah Payton MD, V Signed By: Micah Payton MD, V Signed Date/Time: 08/21/23 1:05 pm Transcribed By: HAZEL Transcribed Date/Time: 08/21/23 1:02 pm Vital Signs Most recent to oldest [Reference Range]: 1 2 3 4 Height 145 cm (08/25/23 6:26 AM) 145 cm (08/25/23 4:07 AM) 145 cm (08/24/23 6:36 PM) Weight 43 kg (08/21/23 1:24 PM) 43 kg (08/21/23 9:33 AM) Oxygen Saturation [94-100 %] 97 % (08/25/23 6:26 AM) 99 % (08/25/23 4:07 AM) 99 % (08/24/23 6:36 PM) Pulse Rate [55-90 bpm] 59 bpm (08/25/23 7:21 AM) 59 bpm (08/25/23 6:26 AM) 68 bpm (08/25/23 4:07 AM) Body Mass Index [18.5-24.99 kg/m2] 20.45 kg/m2 (08/21/23 1:24 PM) 20.45 kg/m2 (08/21/23 9:33 AM) Blood Pressure [90-138/55-84 mm Hg] 118/36mm Hg (08/25/23 7:21 AM) 118/36mm Hg (08/25/23 6:26 AM) 108/52mm Hg (08/25/23 4:07 AM) Respiratory Rate [16-30 br/min] 18 br/min (08/25/23 12:59 PM) 18 br/min (08/25/23 8:53 AM) 18 br/min (08/25/23 8:21 AM) 18 br/min (08/25/23 8:21 AM) Temperature [96.8-100.4 DegF] 98.3 DegF (08/25/23 6:26 AM) 98.4 DegF (08/25/23 4:07 AM) 98.4 DegF (08/24/23 6:36 PM) Mode of Delivery (Oxygen) Room air (08/25/23 6:26 AM) Room air (08/25/23 4:07 AM) Room air (08/24/23 6:36 PM) Blood pressure sites Arm, left (08/25/23 6:26 AM) Arm, right (08/25/23 4:07 AM) Arm, right (08/24/23 6:36 PM) Temperature Route Oral (08/25/23 6:26 AM) Oral (08/25/23 4:07 AM) Oral (08/24/23 6:36 PM) Dry Weight 43 kg (08/21/23 1:24 PM) 43 kg (08/21/23 9:33 AM) Weight Obtained Via Standing scale (08/21/23 9:33 AM) Dry Weight Obtained Via Standing scale (08/21/23 9:33 AM) Social History Social History Type Response Smoking Status Former smoker, quit more than 30 days ago entered on: 07/31/23 Sex History and physical note * Event Display: History and Physical Hospital Authored Date: * Event Display: History and Physical Hospital Authored Date: * Event Display: History and Physical Hospital Authored Date: Cardiology * Event Display: Cardiac Rhythm Strips Authored Date: Hospital Progress note * Eugenio Méndez RN: MODIFY, SIGN, PERFORM, SIGN, VERIFY Event Display: Progress Note Hospital Authored Date: Patient: YARA CINTRON Age: 88 years Sex: Female : 1935 Associated Diagnoses: None Author: Eugenio Méndez RN Findings Problem Related to Alteration in Musculoskeletal : Alteration in Musculoskeletal Func/new 08/25/2023 7:00 EDT Alteration in Musculoskeletal Related to Orthopedic Procedure, Total joint replacement, Other: Right ant hip by Dr. Don on 08/21/23 Goals & Outcomes, Musculoskeletal Affected extremity will maintain color/motion/sensation, Pt able to perform ADL's to best of ability, Pt demonstrates precautions/exercise/ transfers per protocol, Pt will ambulate safely with assistive device, Pt will be free from complications of immobility, Pt will demonstrate ability to participate in ADL's, Pt will report acceptable level of comfort/painrelief Interventions, Musculoskeletal Monitor patients ambulation status, monitor Color/Motion/Sensation, Assist with repositioning, Encourage deep breathing & coughing exercises, Notify MD immediately if tissue perfusion deteriorates, Obtain assistive devices as needed, Teach & Encourage use of Incentive spirometer, Teach Pt/caregiver on ADL's & adaptive equipment, Teach Pt/caregiver on exercises, Teach pt/caregiver on use of pain scale, Teach Pt/caregiver complications of immobility, Teach Pt/caregiver techniques to increase mobility, Teach Pt/caregiver on safety precautions BH Goals/Interventions, Musculoskeletal Yes Musculoskeletal, Problem Start 08/21/2023 14:00 Reviewed Plan with, Musculoskeletal Patient Patient Progression, Musculoskeletal Pt progressing according to plan . Nursing Data Musculoskeletal Data. : Musculoskeletal Data. 08/25/2023 7:38 EDT Musculoskeletal Symptoms Joint stiffness, Joint swelling, Joint tenderness Musculoskeletal WNL except . Evaluation P: Alteration in Musculoskeletal I: Per plan of care E: Pt s/p R aTHR on 08/20 by , +PP, +CMS, D/P flexion, denies numbness, tingling, or calf pain. Aquacel on R hip, CDI, no s/sx of bleeding or infection noted. Ambulate with 1 assist with walker. Pt A+Ox4, speech is clear, follows simple and complex commands. Visual field intact. Pt takes pills whole with water, tolerating well. Denies PEDRAZA, dizziness, N/V. No s/sx of hypo/hyperglycemia noted. LS diminished at bases, denies CP, SOB, no s/sx of respiratory distress noted. Continent for bowel and bladder, last BM 08/24/2023, +BSx4, soft and nontender abdomen noted. Voiding without pain or difficulty using bathroom and bedside commode. C/O 5/10 R hip pain, PRN 5mg Oxycodone administered asordered, icepack applied, +effect. IV access on L wrist, patent. Eliquis for DVT prophylaxis, Cboots in place. PT recommends rehab. Bed in lowest position, bed alarm on functioning, call aguilar in reach, hourly rounding maintained, will continue to monitor and document changes in CIS 2:30PM Discharge instruction given, pt verbalized understanding, questions asked and answered, IV removed, catheter tip intact. Pt left unit with discharge packet via W/C with transporter.. * Laura Garcia NP: PERFORM, SIGN, VERIFY Event Display: Progress Note Hospital Authored Date: Patient: YARA CINTRON Age: 88 years Sex: Female : 1935 Associated Diagnoses: None Author: Laura Garcia NP Ortho POD 4 s/p right FINA S: no c/o CP, SOB, N/V, +flatus, voiding well. No bowel movement yet. Pain is well-controlled on current regimen. Patient ambulated 20 feet with contact- guard. Plan is to discharge to rehab pending insurance authorization and bed availability. O: Vitals Temperature 98.4 (04:07) Systolic Blood Pressure 108 (04:07) Diastolic Blood Pressure 52 (04:07) Pulse 68 (04:07) SpO2 99 (04:07) Respiratory Rate 12 (04:28) Last 24 Hours Basic Metabolic Panel: Hematology: Sodium: 143 mmol/L (08/25/23) Hgb: 7.8 Gm/dL (08/25/23) Potassium (POC): 4.0 mmol/L (08/25/23) Hemoglobin A1C (Monitoring): ------ Phosphorus: ------ WBC: 4.7 k/mm3 (08/25/23) Magnesium: ------ Platelets: 133 k/mm3 (08/25/23) BUN (POC) POC Cartridge: 26 mg/dL (08/25/23) INR Level: ------ Creatinine-Blood: 1.1 mg/dL (08/25/23) Creatinine Clearance: ------ Additional - Last 24 Hours Abs. NRBC: 0.0 k/mm3 (08/25/23) Anion Gap: 10 (08/25/23) Bicarbonate Level: 25 mmol/L (08/25/23) BUN: BUN (08/25/23) Chloride: 108 mmol/L (08/25/23) Creatinine, Blood: Creatinine, Blood (08/25/23) Estimated GFR Creatinine: 49 ML/MIN/1.73 M2 (08/25/23) Glucose, POC: Glucose, POC (08/24/23) Hct: 25.4 % (08/25/23) MCH: 29.1 pg (08/25/23) MCHC: 30.7 g/dL (08/25/23) MCV: 94.8 femtoliters (08/25/23) MPV: 10.9 femtoliters (08/25/23) Nucleated RBC (Automated): 0.0 #/100 WBC'S (08/25/23) RBC: 2.68 m/mm3 (08/25/23) RDW-SD: 59.2 femtoliters (08/25/23) General: alert, lucid, in NAD Heart: RRR, normal S1S2 Lungs: CTAb Abdomen: obese, soft NT BS hypo active Neurovascular: calves soft NT, +DF/+PF Dressing: Aquacel dressing to anterior hip without seepage A/P: 88 YOF s/p right THR with history of COPD, CVA, hypertension, hyperlipidemia, chronic kidney disease and overactive bladder now POD 4 -Pain: continue Oxycodone, tramadol, acetaminophen prn - Anemia with recent blood transfusion in 07/2023. Continue to monitor. H/H: 7.8/25 - COPD continue at home inhalers - GERD continue pantoprazole -H/O of BCA and CVA- 2021: continue to monitor. - Hypertension continue home medications - Hyperlipidemia continue home medications - CKD: continue to monitor. Kidney function remained stable - Overactive bladder continue home meds D/C rehab pending bed availability on 08/24 and PT/OT clearance Case discussed with Dr. Don * Juan Ramon Sandoval RN: PERFORM, MODIFY, MODIFY, SIGN, VERIFY Event Display: Progress Note Hospital Authored Date: Patient: YARA CINTRON Age: 88 years Sex: Female : 1935 Associated Diagnoses: None Author: Juan Ramon Sandoval RN Findings Problem Related to Alteration in Musculoskeletal : Alteration in Musculoskeletal Func/new 08/24/2023 20:00 EDT Alteration in Musculoskeletal Related to Orthopedic Procedure, Total joint replacement, Other: Right ant hip by Dr. Don on 08/21/23 Goals & Outcomes, Musculoskeletal Affected extremity will maintain color/motion/sensation, Pt able to perform ADL's to best of ability, Pt demonstrates precautions/exercise/ transfers per protocol, Pt will ambulate safely with assistive device, Pt will be free from complications of immobility, Pt will demonstrate ability to participate in ADL's, Pt will report acceptable level of comfort/painrelief Interventions, Musculoskeletal Monitor patients ambulation status, monitor Color/Motion/Sensation, Assist with repositioning, Encourage deep breathing & coughing exercises, Notify MD immediately if tissue perfusion deteriorates, Obtain assistive devices as needed, Teach & Encourage use of Incentive spirometer, Teach Pt/caregiver on ADL's & adaptive equipment, Teach Pt/caregiver on exercises, Teach pt/caregiver on use of pain scale, Teach Pt/caregiver complications of immobility, Teach Pt/caregiver techniques to increase mobility BH Goals/Interventions, Musculoskeletal Yes Musculoskeletal, Problem Start 08/21/2023 14:00 Reviewed Plan with, Musculoskeletal Patient Patient Progression, Musculoskeletal Pt progressing according to plan . Nursing Data Vital Signs : VITAL SIGNS SECTION 08/25/2023 4:07 EDT Early Warning Score 3.00 08/25/2023 4:07 EDT Temperature 98.4 DegF Temperature Route Oral Pulse Rate 68 bpm Respiratory Rate 18 br/min Systolic Blood Pressure 108 mm Hg Diastolic Blood Pressure 52 mm Hg L Blood pressure sites Arm, right Mean Arterial Pressure 71 mm Hg Pulse Pressure 56 mm Hg Oxygen Saturation 99 % Mode of Delivery (Oxygen) Room air . Narrative/Incidental Patient is A/Ox 4. VVS. Patient is assist x 1 with a walker. CTA. No complaints of CP or SOB. Patient complained of 4/10 pain managed with PRN Oxycodone with positive effect. Patient tolerated all medications whole. Patient voiding in bathroom without issue. Last BM on 08/23 and small. +BS abdomen isSRNT. No complaints of N/V. Right hip aquacel C/D/I. +CMS. +PP, +PF, +DF. C-boots off overnight. All safety measures in place. Bed in lowest position with wheels locked. Call aguilar on bed and within reach and frequent, purposeful rounding completed. Patient resting comfortably in bed, rise and fall of chest noted. No further issues at this time.. Discharge Information Rehabilitation Discharge : Rehab Discharge Index 08/24/2023 12:41 EDT Walker: distance >50 08/24/2023 11:25 EDT Transfer tub/shower OT Plan Supervision 08/24/2023 8:52 EDT Walker: distance >50 08/24/2023 8:08 EDT Transfer tub/shower OT Plan Supervision 08/23/2023 13:30 EDT Walker: distance >50 08/23/2023 13:15 EDT Transfer tub/shower OT Plan Supervision 08/23/2023 10:56 EDT Walker: distance >50 08/23/2023 10:39 EDT Transfer tub/shower OT Plan Supervision 08/22/2023 16:13 EDT Walker: distance 20-50 08/22/2023 15:34 EDT Transfer tub/shower OT Plan Supervision 08/22/2023 11:14 EDT Transfer tub/shower OT Plan Supervision 08/22/2023 8:38 EDT Walker: distance 20-50 08/21/2023 15:17 EDT Comments on treatment indicated 88 y.o. F s/p R anterior THR with Dr. Don on 08/21/23. WBAT, anterior hip precautions. Skilled PT for ther ex, bed mob, transfers, gait c walker,stairs. Plan is for rehab vs home with services depending on progress in this setting. Walker: distance 20-50 Distance pt will ambulate 80' c walker Full chart review completed Yes Hospital course Hospital course Other findings Other findings Plan of care PT Gait training, Transfer training, Therapeutic exercise, Functional Activities, Balance training 08/21/2023 15:14 EDT Comments on treatment indicated OT to address ADL's, transfers, safety, AE edu Full chart review completed Yes Hospital course PROCEDURE: Pt s/p anterior right total hip arthroplasty by Dr. Don on 08/21/2023. Transfer tub/shower OT Plan Supervision Note * Eugenio Méndez RN: PERFORM Event Display: Discharge/Transfer Note Hospital Authored Date: [id number] Nursing Discharge Note Entered On: 08/25/2023 14:30 EDT Performed On: 08/25/2023 14:30 EDT by Eugenio Méndez RN Nursing Discharge Note 2 Discharge Time : 08/25/2023 14:30 EDT Discharge Level of Care at Discharge : [facility] facility [facility] : Wheelchair Patient Accompanied Off Unit with : Other: transporter DC Instructions Provided & Signed by Pt : Unable Patient Understands D/C Instructions : No Patient Instructions Discharge Signed : No Instructions for Discharge Comments : pt going to rehab Did Pt have Specialty Bed or Wound Vac : No Eugenio Méndez RN - 08/25/2023 14:29 EDT * Anjana Brice RN: PERFORM, SIGN, VERIFY Event Display: Case Management Discharge Plan Authored Date: Patient: YARA CINTRON Age: 88 years Sex: Female : 1935 Associated Diagnoses: None Author: Anjana Brice RN Discharge Plan Case Management Discharge Plan : Case Management Discharge Plan Data 08/25/2023 9:05 EDT Discharge Level of Care at Discharge [facility] facility Discharge Nursing Homes/Rehab Facilities [facility] Discharge Transportation Arranged family Discharge Arranged Transport Date/Time 08/25/2023 13:00 Mode of Transportation Arranged pvt car Name of Agency #1 [facility] Categories #1 Occupational Therapy, Physical Therapy, Long Term Service Start Date and Time #1 08/25/2023 13:00 Service Comments #1 [facility] are [facility] room G401. Phone # [phone].(Modified) * Eugenio Méndez RN: PERFORM Event Display: Patient Education/Instruction Authored Date: Inpatient Adult Discharge Instructions. [address] [address] Name: YARA CINTRON : 1935?? Visit: 08/22/2023 10:05?? Current Date: 08/25/2023 13:01 ?? Account: [id number]?? Inpatient Adult Discharge Instructions We would like to thank you for allowing us to assist you with your healthcare needs. The following includes patient education materials and information regarding your injury/illness. Our entire staffstrives to provide an excellent experience for our patients and their families. PLEASE ENSURE YOU FOLLOW-UP PER THE INSTRUCTIONS BELOW! ?? YOUR OPINION IS IMPORTANT TO US! Please complete the survey you may receive by mail or email. Your feedback will be used to make improvements to the healthcare experiences of our patients and their families. Surveys are administered by [employer] ?? If further treatment with your primary care physician or another doctor is recommended, it is important for you to keep the appointment. Call your primary care physician or return to the Emergency Department immediately if your condition worsens, fails to improve, or new symptoms develop. If you need to find a doctor, you can call [facility] [employer] for a referral at [phone] or toll free at [phone] ([phone]) or log in to [email or web address] ?? [facility], in keeping with [facility] guidance, no longer requires face masks for staff, patientsor visitors in most situations. Similiar to time spent indoors at other locations, there is the chance that you were exposed to repiratory viruses during your time with us (such as flu or COVID-19). If you develop symptoms concerning for a viral respiratory infection, please seek testing (and treatment if indicated) from your medical provider or home test kit. ?? You can view and manage your care through the patient portal or by using a health care terrance of your choosing. [employer] is a website that allows you to securely view your medical information including your hospital discharge summary, office visit summaries, medications and follow-up visits. You can also request appointments, renew medications, and request access to your medical information using a health care terrance of your choosing, or just ask a question. You can enroll at [email or web address] or register during your next office visit. You have been discharged from [facility], Patient Care Unit: SW7??. If you have any questions regarding these instructions, including results of studies pending, afteryou leave, please call us and we will be happy to assist you 11/11. [facility] Your Care Team Attending Physician Brothers Gene HORVATH?? Consulting Providers Gene Don MD?? Discharging Providers Radha GUTIERREZ, Laura Your Diagnosis Osteoarthritis of right hip Tests Performed Below is a partial list of the tests performed during your hospitalization. You may have had other tests and procedures not included in this list. Please discuss all test results with your provider. BUN CBC Creatinine Electrolytes GLUCOSE POC Type and Screen XR C-Arm < 1 Hour XR Pelvis 1 or 2 Views BUN?? CBC?? Creatinine?? Electrolytes?? RBCs for Surgery?? Primary Care Provider Radhames Duron MD , Shirin Gooden? Advance Directive Health Care Proxy on File Yes - Health Care Proxy Discharge Vitals Temperature: 98.3 DegF Height: 145 cm Pulse Rate: 59 bpm Weight: 43 kg Respiratory Rate: 18 br/min Body Mass Index: 20.45 kg/m2 Systolic Blood Pressure: 118 mm Hg Body surface area: 1.32 Diastolic Blood Pressure:??36 mm Hg??Low ?? Oxygen Saturation: 97 % ?? Studies Pending All studies ordered during this hospital stay have been completed unless listed below. Please discuss all pending results with your provider listed above in these instructions. ?? BUN?? CBC?? Creatinine?? Electrolytes?? RBCs for Surgery?? What to do next Instructions From Your Doctor ?? Orders?? Unit Discharge Criteria Met, ??08/25/23 6:22:00 EDT?? Prescriptions??, ??08/25/23 6:22:00 EDT?? Scheduled Follow-Up Appointments Friday. 2023 11:00 AM EDT ?? With: Chico Gagnon [facility] Status: Pending You Need to Schedule the Following Appointments Follow Up with??[facility] When:??Within Within two weeks Discharge Medications YARA CINTRON :1935 Visit Date:08/22/2023 Medications: Please continue your medications until treatment is completed or stopped by your provider. Medications not listed below should be discontinued. Discuss any questions related to medications with your provider. What How Much When Instructions Next Dose New Acetaminophen (acetaminophen 325 mg oral tablet) 650 Milligram Oral Every 6 hours as directed 08/24 after 12PM New apixaban (Eliquis 2.5 mg oral tablet) 1 tab(s) Oral Twice a day Duration: 30 Days Printed Prescription 08/24 8pm New Docusate (Colace Capsule) 100 Milligram Oral Twice a day 08/24 8pm New Oxycodone (oxyCODONE 5 mg oral tablet) See instructions 1-2 tablets ??By Mouth Every 4 hours, As needed for Pain , Severe ?? Printed Prescription 08/24 after 5pm do not take with Tramadol New Polyethylene Glycol 3350 (MiraLax Powder) 17 gram Oral Daily 08/25 8am New Senna (senna 187 mg oral tablet) 1 tab(s) Oral Daily at Bedtime 08/24 8pm Changed Tramadol (traMADol 50 mg oral tablet) See instructions 1-2 tablets By Mouth Every 6 hours not to exceed 400 mg/ day, As needed for Pain , Mild ?? Printed Prescription as directed do not take with Oxycodone Unchanged Amlodipine (amLODIPine 5 mg oral tablet) 1 tab(s) Oral Daily 08/25 8am Unchanged Aspirin (aspirin 81 mg oral capsule) 1 capsule Oral Daily do not exceed 48 capsules in 24 hours ?? 08/25 8am Unchanged Carvedilol (carvedilol 12.5 mg oral tablet) 1 tab(s) Oral Twice a day 08/24 8pm Unchanged Chlorthalidone (chlorthalidone 25 mg oral tablet) 1 tab(s) Oral Daily 08/25 8am Unchanged Ezetimibe (ezetimibe 10 mg oral tablet) 1 tab(s) Oral Daily 08/25 8am Unchanged Lansoprazole (lansoprazole 30 mg oral enteric coated capsule) 1 capsule Oral Daily 08/25 8am Unchanged Losartan (losartan 100 mg oral tablet) 1 tab(s) Oral Daily 08/25 8am Unchanged Nitrofurantoin (nitrofurantoin macrocrystals 100 mg oral capsule) 1 capsule Oral Daily at supper Duration: 10 Days 08/24 8pm Unchanged Rosuvastatin (rosuvastatin 10 mg oral tablet) 1 tab(s) Oral Daily 08/25 8am Unchanged Tiotropium (Spiriva Respimat 1.25 mcg/ inh inhalation aerosol) 2 puff(s) Inhalation Daily 08/25 8am Unchanged vibegron (Gemtesa 75 mg oral tablet) 1 tab(s) Oral Daily 08/25 8am Prescription Given During Visit Oxycodone (oxyCODONE 5 mg oral tablet) - , # 84 tablet, 0 Refills, 1-2 tablets ??By Mouth Every 4 hours?? Tramadol (traMADol 50 mg oral tablet) - , # 56 tablet, 0 Refills, 1-2 tablets By Mouth Every 6 hours not to exceed 400 mg/day?? apixaban (Eliquis 2.5 mg oral tablet) - 1 tablet = 2.5 mg, By Mouth, 2 times a day, # 60 tablet, 0 Refills?? Laboratory Results Below is a partial list of the most recent Laboratory test results done prior to this discharge. You may have had other tests and procedures not included in this list. Please discuss all test resultswith your provider. Est Creatinine Clearance - 21.65 mL/min (08/24/2023) RBC Available - RE (08/21/2023) RBC Unit ID - [id number] (08/21/2023) (08/21/2023) ? ?Surgical Pathology - Patient Name: YARA CINTRON
Lab Ac cession #: [id number]
Patient : 1935 (Age: 88)
Collection Date: 08/21/2023
Accession Date: 08/21/2023
Sign Out Date: &n bsp; 08/22/2023

Tissue Source:
1:RIGHT FEMORAL HEAD

Final Diagnosis:
Right femoral head, resection:
- Osteoarthritis (gross only).

Primary Pathologist:Rosanna Vee M.D.
electronically signed out by: Rosanna Vee M.D. / JUAN

Clinical History:
Right hip osteoarthritis.<br/&g t;

Gross Description:
Labeled right femoral head . Received in formalin is a 4 x 4 x 3.7 cm distorted femoral head with a smoothcut, granular, mildly congested resection margin. The articular surface is diffusely pitted and eroded with a large area of eburnation and there is moderate osteophyte formation peripherally. Cut surfaces are focally congested without a discrete mass lesion or areas suspicious for avascular necrosis. The articular surface ranges in thickness from 0.2 cm to less than 0.1 cm in the area of eburnation. The specimen is for gross examination only and no tissue sections are submitted.
([place])*

Phone #: [phone], On-Call Pathologist: &nickip;[id number] BUN (08/25/2023) ???BUN - 26 mg/dL CBC (08/25/2023) ???WBC - 4.7 k/mm3???RBC - 2.68 m/mm3???Hgb - 7.8 Gm/dL???Hct - 25.4 %???MCV - 94.8 femtoliters???MCH - 29.1 pg???MCHC - 30.7 g/dL???Platelet Count - 133 k/mm3???RDW-SD - 59.2 femtoliters???MPV - 10.9 femtoliters???Nucleated RBC (Automated) - 0.0 #/100 WBC'S???Abs. NRBC - 0.0 k/mm3 Creatinine (08/25/2023) ???Creatinine-Blood - 1.1 mg/dL???Estimated GFR Creatinine - 49 ML/MIN/1.73 M2 Electrolytes (08/25/2023) ???Sodium - 143 mmol/L???Potassium - 4.0 mmol/L???Chloride - 108 mmol/L???Bicarbonate Level - 25 mmol/L???Anion Gap - 10 GLUCOSE POC (08/25/2023) ???Glucose, POC - 139 mg/dL Type and Screen (08/21/2023) ???Blood Type - O Negative???Antibody Screen - Negative Allergies (NKA means No Known Allergies) Keflex??(unknoiwn) Lobster tetracyclines??(unknown) Problems Active Problems??(8) Anemia?? Chronic obstructive pulmonary disease (COPD)?? GERD (gastroesophageal reflux disease)?? History of breast cancer?? History of CVA (cerebrovascular accident)?? HLD (hyperlipidemia)?? HTN (hypertension)?? Primary osteoarthritis of right hip?? Education Materials Below is the list of Educational Leaflet Providered with your Discharge Instructions. Web[employer] Ignite Patient Education - Total Hip Replacement Discharge Instructions?? Valuables and Belongings I fully understand and agree that [facility] accepts no responsibility for all my personal property including clothing, toilet articles, radios, jewelry, dentures, hearing aids, rings, money, or any other property that is in my possession or is brought to me after admission. I understand certain valuables may be placed in a hospital safe for a short period of time. I understand that the hospital is not liable for loss or damage due to accident, fire, or other natural occurrence while said property is in the safe. I accept full responsibility for any personal property that I keep with me, and will not hold the hospital responsible in case of loss or disappearance. I acknowledge that i have been encouraged to send valuables and belongings home. ?? Review of Valuable and Belonging List: With patient Possessions released to: [facility]. hearing aides on patient into OR Date for Pt to Sign Valuables/Belongings: 08/21/23 13:26:00 ?? Other Discharge Information ? Case Management Discharge Plan?? Discharge Plan?? Discharge Agency Information?? Discharge Level of Care at Discharge: [facility] facility Name of Agency #1: [facility] Discharge Transportation Arranged: family Service Start Date and Time #1: 08/25/23 13:00:00 Mode of Transportation Arranged: pvt car Service Categories #1: Occupational Therapy, Physical Therapy, Long Term Discharge Arranged Transport Date/Time: 08/25/23 13:00:00 Service Comments #1: You are going to [facility] room G401. Phone # [phone]. Discharge Nursing Homes/Rehab Facilities: [facility] ? Pulmonary Rehab Status?? Pulmonary Rehab Discharge Status?? Respiratory Rate: 18 br/min ? Common Emergency Awareness Tips IS IT A STROKE? Act FAST and Check for these signs: FACE Does the face look uneven? ARM Does one arm drift down? SPEECH Does their speech sound strange? TIME Call at any sign of stroke ?? Heart Attack Signs Chest discomfort: Most heart attacks involve discomfort in the center of the chest and lasts more than a few minutes, or goes away and comes back. It can feel like uncomfortable pressure, squeezing, fullness or pain. Discomfort in upper body: Symptoms can include pain or discomfort in one or both arms, back, neck, jaw or stomach. Shortness of breath: With or without discomfort. Other signs: Breaking out in a cold sweat, nausea, or lightheaded. Remember, MINUTES DO MATTER. If you experience any of these heart attack warning signs, call to get immediate medical attention! ?? Smoking can increase your chances of developing chronic health problems and can cause harmful effects to other family members in your house. If you smoke, you are strongly encouraged to quit. Please call [facility] Ansible Link at [phone] or 2-313-595-[facility] ([phone]) or log in to [email or web address] for referrals to smoking cessation programs. ?? 925 Suicide & Crisis Lifeline is available 11/11 if you or someone you know needs to find a reason to keep living. By calling 544 you'll be connected to a skilled, trained counselor at a crisis center in your area. INPATIENT DISCHARGE INSTRUCTIONS SIGNATURE LUCHO CINTRON YARA Location:[facility] Registration Date and Time:08/22/2023 10:05 EDT Primary Care Physician: Radhames Duron MD , Halima, Attending Physician: Arian HORVATH, Gene Drummond, YARA SALGADO, have received the above patient education materials/instructions and have verbalized understanding. If ambulance or transport services are being used I further acknowledge being givena choice of service. ?? If you need to contact me, please call me at this number: . Patient/Director Payer Name: Patient/Director Payer Signature: Relationship to Patient: Witness Name/Signature: Date: * Eugenio Méndez RN: PERFORM Event Display: Patient Education Leaflets Authored Date: [id number] Total Hip Replacement Discharge Instructions ?? 666 Total Hip Replacement Discharge Instructions ? Please read and review your Total Hip Replacement Book for detailed information ??? Your appetite may be decreased but try to maintain a good balanced diet Incision ?Your incision is closed with absorbable stitches and surgical glue. ?The dressing is waterproof. You may shower the next day. ??? Your dressing will stay on for 1-2 weeks ?You cannot go in a bath, pool, ocean, pond, hill or jacuzzi for 6 weeks. This is to reduce your risk of infection ? You may have some numbness around the incision. This is normal and will improve with time. Some patients have numbness that does not completely go away. ??? You may have skin discoloration (yellowish or bruising) around your incision which may develop. ??? Ice and elevation ? Ice is important to help keep swelling down. ?Keep your leg elevated as much as possible. ?Ice your hip 4 times a day for 20 minutes each time. Be sure not to put the ice/ice pack directly on your skin. Use a dishtowel or something similar between your skin and the ice. ??? Drs. Velásquez, Isabella, and Estevan???Young patients: The blue wedge is to be used between your knees when sleeping and sitting in a chair for the first few weeks. This keeps your hip in the proper position ? Moving ? Moving is especially important. This helps to prevent blood clots. Take short frequent walks. ? Exercises as per physical therapy ??? No driving until approved by your surgeon ??? Continue to move your foot up and down, these exercises help to prevent blood clots and help to decrease swelling in your hip. ?? When to call the Surgeon?CALL [phone] ? If you have shortness of breath or chestpain, call 911 or go to the nearest emergency department. ??? If you have drainage and/or redness around your wound. ??? If you have a fever greater than 101.5 (38.5 degrees Celsius). ??? If you havepersistent calf pain or swelling (This could be a blood clot). ??? If your pain is worsening. ? If you have any difficulty with urination or burning with urination. ?? * Laura Garcia NP: MODIFY, SIGN, PERFORM, SIGN Laura Garcia NP: SIGN, VERIFY Laura Garcia NP: VERIFY Mojgan Peralta: MODIFY, SIGN Mojgan Peralta: SIGN, SIGN Mojgan Peralta: SIGN, MODIFY Mojgan Peralta: MODIFY Event Display: Discharge/Transfer Note Hospital Authored Date: Patient: YARA CINTRON Age: 88 years Sex: Female : 1935 Associated Diagnoses: None Author: Radha GUTIERREZ, Laura Discharge Summary Admission Date: 08/21/2023 Discharge Date: 08/25/2023 Admitting Diagnosis: Right hip osteoarthritis Discharge Diagnosis: Right hip osteoarthritis Final Diagnosis: Right hip osteoarthritis Procedure: Right total hip arthroplasty Surgeon: Dr. Gene Don Past Medical History: 1. Osteoarthritis of the right hip. 2. Anemia with recent blood transfusion in 07/2023. 3. COPD. 4. GERD. 5. History of breast cancer. 6. History of CVA in 2021. 7. Hypertension. 8. Hyperlipidemia. 9. CKD. 10. Overactive bladder. Orthopedics: The patient is status post right total hip arthroplasty. It is anticipated that she will be discharged rehab today pending PT, OT clearance. The patient is doing well from a surgical standpoint. Her incision is healing well. Neurovascular status is intact. Calves are supple and nontender. The patient is weight bearing as tolerated. Making good progress with Physical Therapy and Occupational therapy. Contact-guard with ambulation walking 20 feet, ambulating with a walker. Pain is well controlled on her current regimen, Acetaminophen 650 mg every 6 hours, tramadol and oxycodone 5-10 mg every 4 hours as needed. Patient is tolerating this well. She will be sent to rehab with a prescription for this medication. Prescription: Tramadol 50 mg tablets, take 1 to 2 tablets every 6 hours as needed for mild pain, 7 days, #56 Oxycodone 5 mg tablet, 1-2 tablets every 4 hours as needed for severe pain, 7 days # 84 Hospital course: Relatively uneventful medically. Creatinine was noted to be slightly elevated at 1.3 ( pre-op 1.1).Oral fluid intake was encouraged. Patient received 1 L bolus x 1. Repeat creatinine stabilized backto baseline. Patient is voiding spontaneously. + bowel sounds. all morning bowel medications will be given in anticipation of a BM prior to discharge. No other issues. No calf tenderness. Current Medication List: Acetaminophen (acetaminophen 325 mg oral tablet) 650 Milligram By Mouth Every 6 hours Amlodipine (amLODIPine 5 mg oral tablet) 1 tab(s) 5 Milligram By Mouth Daily apixaban (Eliquis 2.5 mg oral tablet) 1 tab(s) 2.5 Milligram By Mouth 2 times a day for 30 Days Aspirin (aspirin 81 mg oral capsule) 1 capsule 81 Milligram By Mouth Daily do not exceed 48 capsules in 24 hours Carvedilol (carvedilol 12.5 mg oral tablet) 12.5 Milligram 1 tablet By Mouth 2 times a day Chlorthalidone (chlorthalidone 25 mg oral tablet) 25 Milligram 1 tablet By Mouth Daily Docusate (Colace Capsule) 100 Milligram 1 capsule By Mouth 2 times a day Ezetimibe (ezetimibe 10 mg oral tablet) 1 tab(s) 10 Milligram By Mouth Daily Lansoprazole (lansoprazole 30 mg oral enteric coated capsule) 1 capsule 30 Milligram By Mouth Daily Losartan (losartan 100 mg oral tablet) 1 tab(s) 100 Milligram By Mouth Daily Nitrofurantoin (nitrofurantoin macrocrystals 100 mg oral capsule) 1 capsule 100 Milligram By Mouth Daily at supper for 10 Days Oxycodone (oxyCODONE 5 mg oral tablet) See Instructions as needed 1-2 tablets By Mouth Every 4 hours Pain , Severe Polyethylene Glycol 3350 (MiraLax Powder) 1 pack/packet 17 gram By Mouth Daily Rosuvastatin (rosuvastatin 10 mg oral tablet) 1 tab(s) 10 Milligram By Mouth Daily Senna (senna 187 mg oral tablet) 1 tab(s) 8.6 Milligram By Mouth Daily at bedtime Tiotropium (Spiriva Respimat 1.25 mcg/inh inhalation aerosol) 2 puff(s) 2.5 Microgram Inhalation Daily Tramadol (traMADol 50 mg oral tablet) See Instructions as needed Pain , Mild 1-2 tablets By Mouth Every 6 hours not to exceed 400 mg/day vibegron (Gemtesa 75 mg oral tablet) 1 tab(s) 75 Milligram By Mouth Daily Allergies (Active and Proposed Allergies Only) Lobster (Severity: Unknown severity, Onset: Unknown) Keflex (Severity: Unknown severity, Onset: Unknown) Reactions: unknoiwn tetracyclines (Severity: Unknown severity, Onset: Unknown) Reactions: unknown Current Labs: BLOOD COUNT & DIFF WBC 4.7 k/mm3 () 08/25/2023 01:44 RBC 2.68 m/mm3 (Low) 08/25/2023 01:44 Hgb 7.8 Gm/dL (Low) 08/25/2023 01:44 Hct 25.4 % (Low) 08/25/2023 01:44 MCV 94.8 femtoliters () 08/25/2023 01:44 MCH 29.1 pg () 08/25/2023 01:44 MCHC 30.7 g/dL (Low) 08/25/2023 01:44 Platelet Count 133 k/mm3 (Low) 08/25/2023 01:44 RDW-SD 59.2 femtoliters (High) 08/25/2023 01:44 MPV 10.9 femtoliters () 08/25/2023 01:44 Nucleated RBC (Automated) 0.0 #/100 WBC'S () 08/25/2023 01:44 Abs. NRBC 0.0 k/mm3 () 08/25/2023 01:44 CHEM GENERAL Sodium 143 mmol/L () 08/25/2023 01:44 Potassium 4.0 mmol/L () 08/25/2023 01:44 Chloride 108 mmol/L (High) 08/25/2023 01:44 Bicarbonate Level 25 mmol/L () 08/25/2023 01:44 Anion Gap 10 () 08/25/2023 01:44 Glucose, POC 121 mg/dL (High) 08/24/2023 21:31 BUN 26 mg/dL (High) 08/25/2023 01:44 Creatinine-Blood 1.1 mg/dL (High) 08/25/2023 01:44 Estimated GFR Creatinine 49 ML/MIN/1.73 M2 () 08/25/2023 01:44 URINE OTHER Est Creatinine Clearance 21.65 mL/min () 08/24/2023 01:52 DVT prophylaxis Apixaban 2.5 mg po bid x 30 days Disposition: Anticipates being discharged today to rehab. Follow up at [facility] in 2 weeks, patient is aware of this. The patient has an Aquacel dressing in place. She may shower with it and the dressing can be discontinued on POD 14. Stay at the rehab is expected to be less than 30 days Patient Care team information Care Team Personnel Name: Mandy Duran RN Position: S RN Member Role: Primary Care Nurse Name: hSirin Magana MD Position: Reference Physician Member Role: PCP Address: Address: [address] [place] [address]- Name: Love Benz RN Position: [facility] RN Member Role: Primary Care Nurse Care Team Related Persons Name: JANE RAUSCH
--- OUTSIDE RECORDS SUMMARY | 2023-12-25 20:50 | XMS_ITS | Continuity of Care Document ---
Author Organization [facility] Address [address] [place] [address]- Care Team Providers Care Electrical And Electronic Assembler Name Role Phone Radhames Duron MD, Halima Primary Care Physician Encounter [facility] [place] Date(s): 07/31/23 - 08/30/23 [facility] [address] [place] [address]- Attending Physician: Eboni Gaming Admitting Physician: Admtr, Eboni Referring Physician: Admtr, Ar8 Allergies, Adverse Reactions, [...] Reference Physician Member Role: PCP Address: Address: [address] [place] [address] [address] [place] [id number] Name: Love Benz RN Position: S RN Member Role: Primary Care Nurse Care Team Related Persons Name: JANE RAUSCH
--- OUTSIDE RECORDS SUMMARY | 2023-12-25 20:50 | XMS_ITS | Continuity of Care Document ---
Author Organization [facility] ter Address [address] [place] [id number]- Care Team Providers Care Insurance Manager Name Role Phone Radhames Duron MD, Shirin Gooden Primary Care Physician Encounter [facility] [place] [facility] R [id number] Date(s): 06/30/23 - 08/29/[address] [address] Attending Physician: Gene Don MD Admitting Physician: [...] Reference Physician Member Role: PCP Address: Address: [address] [place] [address] [address] [place] [id number] Name: Love Benz RN Position: S RN Member Role: Primary Care Nurse Care Team Related Persons Name: JANE RAUSCH
--- OUTSIDE RECORDS SUMMARY | 2023-12-25 20:50 | XMS_ITS | Continuity of Care Document ---
Author Organization [facility] Address [address] [place] [address]- Care Team Providers Care Bulk Picker Name Role Phone Radhames Duron MD, Halima Primary Care Physician [place] [facility] [place] [id number] Date(s): 07/31/23 - 08/07/23 [facility] [address], [place] [address] Attending Physician: Kady HORVATH, [place] Josue Referring Physician: Arian HORVATH, Gene Drummond Allergies, Adverse Reactions, Alerts Substance Reaction Severity Status tetracyclines unknown Active Keflex unknoiwn Active Lobster Active Immunizations Given and Recorded Vaccine Date Status Refusal Reason SARS-CoV-2 (COVID-19) mRNA BNT-162b2 vac 06/16/20 Given Medications amLODIPine 5 mg oral tablet 1 tablet = 5 mg, By Mouth, Daily, # 30 tablet, 0 Refills, Maintenance, 07/31/23 12:17:00 EDT, Tablet, Partial fill upon patient request if the prescription is for a schedule II opioid drug. Start Date: 07/31/23 Status: Ordered carvedilol 12.5 mg oral tablet [...] opioid drug. Start Date: 07/31/23 Status: Ordered ezetimibe 10 mg oral tablet [...] opioid drug. Start Date: 07/31/23 Status: Ordered nitrofurantoin macrocrystals 100 mg oral [...] opioid drug. Start Date: 07/31/23 Status: Ordered Spiriva Respimat 1.25 mcg/inh inhalation aerosol 2 puffs = 2.5 mcg, Inhalation, Daily, # 4 Gm, 0 Refills, Maintenance, 07/31/23 12:17:00 EDT, Aerosol, Partial fill upon patient request if the prescription is for a schedule II opioid drug. Start Date: 07/31/23 Status: Ordered tolterodine 4 mg oral capsule, extended release 1 capsule = 4 mg, By Mouth, Daily, # 30 capsule, 0 Refills, Maintenance, 07/31/23 12:18:00 EDT, CR Capsule, Partial fill upon patient request if the prescription is for a schedule II opioid drug. Start Date: 07/31/23 Status: Ordered traMADol 50 mg oral tablet 1 tablet = 50 mg, By Mouth, Every 12 hours, PRN as needed for pain, 0 Refills, Maintenance, 07/31/23 12:14:00 EDT, Tablet, Partial fill upon patient request [...] Primary osteoarthritis of right hip Confirmed Active Procedures Procedure Date Related Diagnosis Body Site Status Cataracts Completed Vital Signs Most recent to oldest [Reference Range]: 1 Height 149 cm (07/31/23 12:01 PM) Weight 44 kg (07/31/23 12: PM) Oxygen Saturation [94-100 %] 98 % (07/31/23 12:01 PM) Pulse Rate [55-90 bpm] 70 bpm (07/31/23 12:01 PM) Body Mass Index [18.5-24.99 kg/m2] 19.82 kg/m2 (07/31/23 12:01 PM) Blood Pressure [90-138/55-84 mm Hg] 151/ 55mm Hg *H* (07/31/23 12:01 PM) Respiratory Rate [16-30 br/min] 16 br/mi n (07/31/23 12:01 PM) Blood pressure sites Arm, right (07/31/23 12:01 PM) Weight Obtained Via Standing scale (07/31/23 12:01 PM) Social History Social History Type Response Smoking Status Former smoker, quit more than 30 days ago entered on: 07/31/23 Sex History and physical note * Event Display: History and Physical Hospital Authored Date: EKG study * Event Display: ECG 12-Lead Authored Date: Please click on pdf link to open report * Event Display: ECG 12-Lead Authored Date: Ventricular Rate: 65 BPM Atrial Rate: 65 BPM P-R Interval: 200 ms QRS Duration: 130 ms Q-T Interval: 436 ms QTC Calculation(Bazett): 453 ms P [place]: 49 degrees R [place]: 102 degrees T [place]: 39 degrees Normal sinus rhythm Right bundle branch block Abnormal ECG No previous ECGs available Confirmed by TREVOR MARTINEZ MD ([id number]) on 07/31/2023 12:23:29 PM [place]: TREVOR MARTINEZ MD Patient Care team information Care Team Personnel Name: Radhames Duron MD , Shirin Gooden Position: Reference Physician Member Role: PCP Address: Address: [address] [place] [address]- Care Team Related Persons Name: JANE RAUSCH
[2023-12-25 21:33] VITALS: BP 138/47; PULSE 80; RESP 13; TEMP 36.7; O2SAT 97
[2023-12-25 22:14] LABS: Troponin-I High Sensitivity 4.4 ng/L (<3.5-17.0)
[2023-12-25] MEDS: traMADoL HCL 50 MG TABLET 25 MG PO (23:59)
--- NOTE | 2023-12-26 | ED_ITS ---
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 Patient states she was recently discharged from the hospital after a syncopal episode. She was found to have orthostatic hypotension, her blood pressure regimen was altered, she is now only on amlodipine 5 mg daily. Patient states when she had her syncopal episode, she was at [employer], bystanders initiated CPR, the event was brief, the patient has residual chest wall pain; she is using tramadol at home for her discomfort. Throughout the evening, the patient states she just was not feeling well, she checked her blood pressure and it was elevated to 200 systolic. Denies chest pain, shortness of breath, dizziness, diaphoresis, headache, weakness of upper or lower extremities. Related Data Home Medications ?Medication ?Instructions ?Recorded ?Confirmed aspirin 81 mg tablet,delayed 81 mg PO DAILY 02/24/20 12/21/23 release (Adult Aspirin Regimen) denosumab 60 mg/mL subcutaneous 60 mg subcut [id number] 05/16/20 12/21/23 syringe (Prolia) docusate sodium 100 mg capsule 100 mg PO BID 09/24/23 12/21/23 (Colace) acetaminophen 650 mg 1,300 mg PO Q6H PRN Pain (Scale 12/21/23 12/21/23 tablet,extended release (Tylenol Score 1-3) Arthritis Pain) ezetimibe 10 mg tablet 10 mg PO BEDTIME 12/21/23 12/21/23 rosuvastatin 10 mg tablet 10 mg PO BEDTIME 12/21/23 12/21/23 tiotropium bromide 1.25 2 puff inhalation DAILY 12/21/23 12/21/23 mcg/actuation mist for inhalation (Spiriva Respimat) triamcinolone acetonide 0.5 % 1 appl topical DAILY PRN Rash 12/21/23 12/21/23 topical cream Previous Rx's ?Medication ?Instructions ?Recorded gemini #1 ea 06/28/23 lansoprazole 30 mg capsule,delayed 30 mg PO DAILY@0630 #90 caps 09/30/23 release vibegron 75 mg tablet (Gemtesa) 75 mg PO DAILY 90 days #90 tabs 12/02/23 amlodipine 5 mg tablet 5 mg PO BEDTIME 90 days #90 tabs 12/23/23 tramadol 25 mg tablet 25 mg PO Q6H PRN pain #12 tabs 12/23/23 Allergies Allergy/AdvReac Type Severity Reaction Status Date / Time cephalexin [Keflex] Allergy Intermediate Unknown Verified 12/25/23 19:38 tetracycline [Tetracycline] Allergy Intermediate TONGUE Verified 12/25/23 19:38 SWOLLEN Review of Systems 2 Review of Systems: Yes all other systems are reviewed and are negative Constitutional: Constitutional: Denies fatigue and Denies fever(s) Cardiovascular: Cardiovascular: Denies chest pain and Denies dyspnea on exertion Respiratory: Respiratory: Denies cough and Denies dyspnea on exertion Gastrointestinal: Gastrointestinal: Denies abdominal pain, Denies nausea and Denies vomiting Endocrine: Endocrine: Denies fatigue PMF Past Medical History Attestation statement: The following information was validated with the patient. Medical History Hospital discharge follow-up Acute leg pain Facial paresthesia Swelling of lower extremity Right leg swelling Hypertensive urgency Constipation Frequent UTI Edema of left lower leg Leg cramping Primary hypertension Uncontrolled hypertension Left hip pain Left-sided weakness Left sided sciatica Adult general medical exam Screening for breast cancer Osteoarthritis of right hip Hospital discharge follow-up Vitamin D deficiency Hypercalcemia Multiple lacunar infarcts Hearing loss Urge urinary incontinence GERD (gastroesophageal reflux disease) COPD (chronic obstructive pulmonary disease) Hypertension Dyslipidemia Hypercalcemia Osteoporosis History of ductal carcinoma in situ (DCIS) of breast Surgical History History of right hip replacement History of colonoscopy History of lumpectomy of right breast History of pubovaginal sling H/O right inguinal hernia repair Family History Family History Father Heart failure CVD (cardiovascular disease) Mother Breast cancer Social History Social History Household Members: None Housing: House Do you presently have visiting nurse or other home services: No Alcohol intake: former Patient Tobacco Use Status: Former Tobacco user Tobacco use type: Cigarette Smoked in Last 30 Days: No e-Cigarette/Vaping Use: Never Used Second Hand Smoke Exposure: No Use of substances other than those prescribed or required for medical reasons: No Advance Directives: Yes Advance Directives on File: Yes Advance Directives Date on File: 10/19/21 service: No Current occupational status: retired Cognitive needs: Yes (CANE) Hearing needs: Yes (hearing aide) Vision needs: No (glaases) Physical Exam ED Vital Signs: Vital Signs - 24 hr 12/25/23 19:35 12/25/23 19:36 12/25/23 21:33 Temperature 98.4 F 98.4 F 98.1 F Pulse Rate 71 70 80 Respiratory Rate 18 18 13 Blood Pressure 167/48 H 167/48 H 138/47 L Pulse Oximetry 98 97 97 Oxygen Delivery Method Room Air Room Air Room Air 12/26/23 01:27 Temperature 98.1 F Pulse Rate 80 Respiratory Rate 13 Blood Pressure 138/47 L Pulse Oximetry 97 Oxygen Delivery Method Room Air BMI result Body Mass Index 20.3 Const Other: Awake, overall well in appearance Orientation/consciousness: patient oriented x3 Chest Other: Chest wall is tender to palpation, it hurts when she moves, no deformity noted Resp Other: Nonlabored respiration Cardio Other: Normal peripheral perfusion Skin Other: Warm dry no rash Neuro General: patient oriented x3, no focal motor deficits and CN's II-XI intact bilaterally Extrem Other: Walks with slow, steady gait, strength 5/5 bilateral upper and lower extremities Psych Other: Calm cooperative Medications Administered Discontinued Medications Generic Name Dose Route Start Last Admin Trade Name Monica PRN Reason Stop Dose Admin Tramadol HCl 25 mg 12/25/23 23:53 12/25/23 23:59 Tramadol Hcl 50 Mg Tablet PO 12/25/23 23:54 25 mg ONCE ONE Administration Medical Decision Making Medical Decision Making [facility] Narrative: 88-year-old female with history of hypertension, hyperlipidemia, 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 Patient states she was recently discharged from the hospital after a syncopal episode. She was found to have orthostatic hypotension, her blood pressure regimen was altered, she is now only on amlodipine 5 mg daily. Patient states when she had her syncopal episode, she was at [employer], bystanders initiated CPR, the event was brief, the patient has residual chest wall pain; she is using tramadol at home for her discomfort. Throughout the evening, the patient states she just was not feeling well, she checked her blood pressure and it was elevated to 200 systolic. Denies chest pain, shortness of breath, dizziness, diaphoresis, headache, weakness of upper or lower extremities. Problem: Age, hypertension History: Per patient I have considered the following differential diagnoses: Hypertensive urgency, hypertensive emergency, stroke, ACS, end-organ dysfunction Plan: Patient here with asymptomatic alleged hypertension. To note, we have not documented any elevated blood pressures here in the emergency department, the patient did not take any additional medication at home, she did not receive any meds from EMS. I am inclined to think that her pressure at home was not accurate. We are checking for evidence of end-organ damage, screening labs including cardiac enzymes, chest x-ray and EKG obtained. We will be giving the patient a dose of her tramadol for her chest wall pain. I have independently reviewed the following tests: Labs: No leukocytosis, not anemic, no electrolyte abnormality, troponin x2 are flat EKG: Sinus rhythm, no ischemic changes no ectopy Chest x-ray: CLINICAL INFORMATION: Chest pain COMPARISON: 09/25/2017 TECHNIQUE: Portable AP upright view of the chest was obtained. FINDINGS: The cardiac and mediastinal silhouettes are normal in size with calcification of the aortic arch. The lungs are clear without consolidation, atelectasis or pneumothorax. No pleural effusion. No acute osseous abnormality. A right convex scoliosis is present. XR/XR chest 1V IMPRESSION: No acute pulmonary process is seen. Electronically signed by: Kermit Salgado MD 12/21/2023 02:51 PM EDT RP Lab Data 12/25/23 20:08 12/25/23 20:08 Labs: Lab Results 12/25/23 12/25/23 Range/Units 20:08 21:33 WBC 7.5 (4.8-10.8) X10*3/uL RBC 2.65 L (4.20-5.50) X10*6/uL Hgb 7.9 L (12.0-16.0) g/dl Hct 24.0 L (37.0-47.0) % MCV 90.6 (80.0-98.0) fL MCH 29.8 (27.0-33.0) pg MCHC 32.9 (31.0-35.0) g/dl RDW 13.3 (11.0-16.0) % Plt Count 235 (160-400) X10*3/uL MPV 9.2 L (9.4-12.3) fL Immature Gran % (Auto) 0.1 (0.0-0.4) % Neut % (Auto) 68.8 (45-73) % Lymph % (Auto) 15.6 L (20-40) % Collier % (Auto) 10.3 (2-11) % Eos % (Auto) 4.8 H (0-4) % Baso % (Auto) 0.4 (0-2) % Lymph # (Auto) 1.2 (1.2-4.9) X10*3/uL Collier # (Auto) 0.8 (0.1-1.2) X10*3/uL Eos # (Auto) 0.4 (0.0-0.4) X10*3/uL Baso # (Auto) 0.0 (0.0-0.2) X10*3/uL Abs Immat Gran (auto) 0.01 (0.00-0.03) X10*3/uL Absolute Neuts (auto) 5.1 (2.0-8.3) x10*3/uL Absolute Nucleated RBC 0.000 (0.0-0.012) X10*3/uL Nucleated RBC % (auto) 0.0 (0.0-0.2) /100WBC Sodium 137 (135-145) mmol/L Potassium 3.4 (3.3-5.1) mmol/L Chloride 105 (96-108) mmol/L Carbon Dioxide 22 (22-29) mmol/L Anion Gap 13 (12-20) BUN 42 H (9-16) mg/dL Creatinine 0.89 (0.5-1.4) mg/dL Estim Creat Clear Calc 26.6 Estimated GFR 60 Random Glucose 122 H (60-115) mg/dL Calcium 8.9 (8.4-10.2) mg/dL Troponin I High Sens 3.7 4.4 (<3.5-17.0) ng/L Discharge Plan Discharge Clinical Impression: Hypertension Patient Disposition: Home, Self-Care Instructions: Chronic Hypertension (ED) Additional Instructions: All of your screening labs including 2 cardiac enzymes were normal. There were no concerning changes on your EKG, your chest x-ray was clear. We have not documented any elevated blood pressures here in the emergency department. I would call your primary care provider tomorrow morning for further guidance on your recent medication adjustments. Prescriptions: No Action (DME) gemini Pérezc See Rx Instructions .Route Qty: 1 0RF Rx Instructions: Pediatric gemini lansoprazole 30 mg capsule,delayed release(DR/EC) 30 mg PO DAILY@0630 Qty: 90 3RF Gemtesa 75 mg tablet 75 mg PO DAILY 90 Days Qty: 90 1RF triamcinolone acetonide 0.5 % cream 1 appl topical DAILY PRN (Reason: Rash) acetaminophen [Tylenol Arthritis Pain] 650 mg tablet extended release 1,300 mg PO Q6H PRN (Reason: Pain (Scale Score 1-3)) ezetimibe 10 mg tablet 10 mg PO BEDTIME rosuvastatin 10 mg tablet 10 mg PO BEDTIME Spiriva Respimat 1.25 mcg/actuation mist 2 puff inhalation DAILY amlodipine 5 mg tablet 5 mg PO BEDTIME 90 Days Qty: 90 1RF tramadol 25 mg tablet 25 mg PO Q6H PRN (Reason: pain) Qty: 12 0RF Prolia 60 mg/mL syringe 60 mg subcut [id number] Rx Instructions: Last dose sometime in November 2023 per patient docusate sodium [Colace] 100 mg capsule 100 mg PO BID aspirin [Adult Aspirin Regimen] 81 mg tablet,delayed release (DR/EC) 81 mg PO DAILY Interventions: ED Discharge Assessment Last Done: 12/26/23 01:27 Discharge Date/Time: 12/26/23 01:28 Print Language: Danish
[2023-12-26 01:27] VITALS: BP 138/47; PULSE 80; RESP 13; TEMP 36.7; O2SAT 97
== END 2023-12-26 01:28 | disposition home or self-care (01) ==
PROVIDERS: Physician Assistant Medical; Emergency Provider Emergency Medicine; PCP Internal Medicine
DX: I10 Essential (primary) hypertension (principal); E78.5 Hyperlipidemia, unspecified; J44.9 Chronic obstructive pulmonary disease, unspecified; Z79.82 Long term (current) use of aspirin; Z79.02 Long term (current) use of antithrombotics/antiplatelets; Z79.899 Other long term (current) drug therapy; Z87.891 Personal history of nicotine dependence
CPT/HCPCS: 36415; 80048; 84484; 85025; 99283; 99285

== ENCOUNTER 2024-01-02 10:58 | Outpatient (AMB) | payer MEDICARE, OTHER, SELFPAY ==
--- NOTE | 2024-01-02 11:01 | MHC.PC.OV ---
Vital Signs 01/02/24 11:11 Height 4 ft 9 in Weight 94 lb 6 oz BMI 20.4 BP 136/56 L Blood Pressure Location Lt brachial Position Sitting Pulse 74 Pulse Source Pulse Oximeter Pulse Oximetry (%) 98 Oxygen Delivery Method Room Air Intake Visit Reasons: F [facility] 12/22 [employer] As[employer]er Required: No Accompanied by: Self / Same As Patient Allergies cephalexin [Keflex] Allergy (Intermediate, Verified 01/02/24 11:03) Unknown tetracycline [Tetracycline] Allergy (Intermediate, Verified 01/02/24 11:03) TONGUE SWOLLEN Tobacco use date assessed: 06/04/23 Fall risk assessment: 1 Fall in past year Last assessed Fall Risk: 01/02/24 Dental Screening Dental Screen Date: 06/19/23 HPI HPI Comments History of Present Illness Details 88 y/o female patient who presents to the clinic today for ED follow up. Pt was originally admitted for Syncope at [facility] on 12/20-12/22. She was found to have Orthostatic Hypotension, which led into d/c her HTN medications. On a Friday of 12/24 she passed out and became Asystolic while at [facility], she was taken to [facility] by Ambulance admitted for High Blood pressure, she was discharged home the same day. She was told resume all her HTN medications. Today she has no concerns. [facility] Medical History Hospital discharge follow-up Acute leg pain Facial paresthesia Swelling of lower extremity Right leg swelling Hypertensive urgency Constipation Frequent UTI Edema of left lower leg Leg cramping Primary hypertension Uncontrolled hypertension Left hip pain Left-sided weakness Left sided sciatica Adult general medical exam Screening for breast cancer Osteoarthritis of right hip Hospital discharge follow-up Vitamin D deficiency Hypercalcemia Multiple lacunar infarcts Hearing loss Urge urinary incontinence GERD (gastroesophageal reflux disease) COPD (chronic obstructive pulmonary disease) Hypertension Dyslipidemia Hypercalcemia Osteoporosis History of ductal carcinoma in situ (DCIS) of breast Surgical History History of right hip replacement History of colonoscopy History of lumpectomy of right breast History of pubovaginal sling H/O right inguinal hernia repair Family History Father Heart failure CVD (cardiovascular disease) Mother Breast cancer Social History Household Members: None Housing: House Do you presently have visiting nurse or other home services: No Alcohol intake: former Patient Tobacco Use Status: Former Tobacco user Tobacco use type: Cigarette e-Cigarette/Vaping Use: Never Used Second Hand Smoke Exposure: No Advance Directives Date on File: 10/19/21 service: No Current occupational status: retired Cognitive needs: Yes (CANE) Hearing needs: Yes (hearing aide) Vision needs: No (glaases) Questionnaire Thrive Questionnaire Date Thrive assessed: 12/22/23 LEMUEL-7 AMB Questionnaire LEMUEL-7 Date LEMUEL - 7 assessed: 12/11/23 Source: Developed by Drs. Lewis Lopez, Dixie Sharma, Clay Stevenson and colleagues, with an educational chucky from [employer]. Review of Systems Const All systems reviewed & are unremarkable except as noted in HPI and below Physical exam (Primary Care) Vital Signs: Last Vital Signs Pulse 74 01/02/24 11:11 BP 136/56 L 01/02/24 11:11 Pulse Ox 98 01/02/24 11:11 Oxygen Delivery Method Room Air 01/02/24 11:11 BMI result Body Mass Index 20.4 Tobacco/Smoking Status: Tobacco use Status Tobacco use date assessed 06/04/23 01/02/24 11:02 Patient Tobacco Use Status Former Tobacco user 01/02/24 11:02 Tobacco use type Cigarette 01/02/24 11:02 e-Cigarette/Vaping Use Never Used 01/02/24 11:02 Thrive Assessment: Date of Thrive Assessment Date Thrive assessed 12/22/23 01/02/24 11:02 Const General: cooperative and no acute distress Orientation/consciousness: patient oriented x3 Resp Effort & Inspection: normal respiratory effort Auscultation: clear to auscultation bilaterally Cardio Heart sounds: S1 normal heart sound present and S2 normal heart sound present Skin General skin exam: no rashes or lesions noted Neuro General: patient oriented x3, gait normal and moves all extremities Psych Speech and movement: Normal speech and movement present Assessment and Plan Assessment & Plan (1) Hypertension: Code(s): I10 - Essential (primary) hypertension Qualifiers: Hypertension type: essential hypertension Qualified Code(s): I10 - Essential (primary) hypertension Plan: Continue on HTN medications as prescribed Monitor BP at home and keep a Log BP today in Office stable. (2) Syncope: Code(s): R55 - Syncope and collapse Qualifiers: Syncope type: unspecified Qualified Code(s): R55 - Syncope and collapse Plan: Resolved. Coding Level of Care Code Est Pt Level 4 (76597) Diagnoses Essential hypertension I10 Hypertension type: essential hypertension Syncope, unspecified syncope type R55 Syncope type: unspecified Time Spent (min) 20 Comment Spent on reviewing hospital notes and Answering questions
[2024-01-02 11:11] VITALS: BP 136/56; PULSE 74; O2SAT 98; BMI 20.4
== END 2024-01-02 11:38 | disposition home or self-care (01) ==
PROVIDERS: PCP Internal Medicine; Visit Provider Nurse Practitioner Family
DX: I10 Essential (primary) hypertension (principal); R55 Syncope and collapse
CPT/HCPCS: 99214

== ENCOUNTER → 2024-01-19 13:52 | Outpatient (REF) | payer MEDICARE, OTHER, SELFPAY ==
--- NOTE | 2024-01-19 14:59 | HM_ITS ---
Conclusion: 1. Patient was monitored for total period of 3 days 2. Baseline was normal sinus rhythm with average heart rate of 65 beats per minute 3. No significant pauses noted 4. Rare ectopy noted 5. No patient reported events MTDD
== END ==
LOC: HO.CARD 13:52
PROVIDERS: PCP Internal Medicine; Visit Provider Internal Medicine Cardiovascular Disease
DX: R55 Syncope and collapse (principal)
CPT/HCPCS: 93242

== ENCOUNTER → 2024-01-19 14:59 | Outpatient (BNV) | payer MEDICARE, OTHER, SELFPAY | PROVIDERS: PCP Internal Medicine; Visit Provider Internal Medicine Cardiovascular Disease | DX: R00.1 Bradycardia, unspecified (principal) | CPT/HCPCS: 93244 ==

== ENCOUNTER 2024-01-28 11:29 | Outpatient (AMB) | payer MEDICARE, OTHER, SELFPAY ==
--- NOTE | 2024-01-28 11:31 | HO.NEPHOV_ITS ---
Vital Signs 01/28/24 11:33 Height 4 ft 9 in Weight 97 lb 8 oz BMI 21.1 BP 128/50 L Blood Pressure Location Rt brachial Position Sitting Pulse 65 Pulse Source Pulse Oximeter Pulse Oximetry (%) 98 Oxygen Delivery Method Room Air Intake Visit Reasons: 6 mo fu w/ labs- Conf Director Of Compliance Required: No Accompanied by: Self / Same As Patient Allergies cephalexin [Keflex] Allergy (Intermediate, Verified 01/28/24 11:35) Unknown tetracycline [Tetracycline] Allergy (Intermediate, Verified 01/28/24 11:35) TONGUE SWOLLEN HPI Comments Details: I had the privilege of seeing Chichi in follow-up of her hypertension. She has history of cerebrovascular accident. She monitors her blood pressure closely. She denies any chest pain, dizziness, headache, visual disturbance, pedal edema. She monitors her blood pressure at home. Her blood pressure had been remaining close to goal. She avoids nonsteroidal anti-inflammatory medication and chief with a low-sodium diet. She is awaiting hip surgery. She has history of renal cyst. She has no flank pain, hematuria or any other urinary symptoms. She had anemia & has been seen by Heme Onc. [facility] Medical History Hospital discharge follow-up Acute leg pain Facial paresthesia Swelling of lower extremity Right leg swelling Hypertensive urgency Constipation Frequent UTI Edema of left lower leg Leg cramping Primary hypertension Uncontrolled hypertension Left hip pain Left-sided weakness Left sided sciatica Adult general medical exam Screening for breast cancer Osteoarthritis of right hip Hospital discharge follow-up Vitamin D deficiency Hypercalcemia Multiple lacunar infarcts Hearing loss Urge urinary incontinence GERD (gastroesophageal reflux disease) COPD (chronic obstructive pulmonary disease) Hypertension Dyslipidemia Hypercalcemia Osteoporosis History of ductal carcinoma in situ (DCIS) of breast Surgical History History of right hip replacement History of colonoscopy History of lumpectomy of right breast History of pubovaginal sling H/O right inguinal hernia repair Family History Father Heart failure CVD (cardiovascular disease) Mother Breast cancer Social History Household Members: None Housing: House Do you presently have visiting nurse or other home services: No Alcohol intake: former Patient Tobacco Use Status: Former Tobacco user Tobacco use type: Cigarette e-Cigarette/Vaping Use: Never Used Second Hand Smoke Exposure: No Advance Directives Date on File: 10/19/21 service: No Current occupational status: retired Cognitive needs: Yes (CANE) Hearing needs: Yes (hearing aide) Vision needs: No (glaases) Review of Systems Const All systems reviewed & are unremarkable except as noted in HPI and below Physical Exam Vital Signs: Last Vital Signs BP 144/50 H 01/28/24 11:33 BMI result Body Mass Index 21.1 Const General: comfortable and no acute distress Orientation/consciousness: patient oriented x3 HEENT Head: Yes normocephalic Mouth: Normal oral and palatal mucosa present Eyes EOM: EOMs intact bilaterally Neck Neck: Yes supple Resp Auscultation: clear to auscultation bilaterally Cardio Jugular venous distension: no JVD Rate: regular rate GI Palpation (GI): Soft to palpation Auscultation: normal bowel sounds General: Yes no CVA tenderness Back/Spine/Pelvis Back: no CVA tenderness Skin General skin exam: no rashes or lesions noted Neuro General: patient oriented x3 and moves all extremities Extrem General: Yes no pedal edema Results Reviewed Nephrology Results: Hgb 7.2 g/dl (12.0-16.0) L 12/29/23 WBC 4.8 X10*3/uL (4.8-10.8) 12/29/23 Plt Count 270 X10*3/uL (160-400) 12/29/23 Sodium 137 mmol/L (135-145) 12/25/23 Potassium 3.4 mmol/L (3.3-5.1) 12/25/23 Chloride 105 mmol/L (96-108) 12/25/23 Carbon Dioxide 22 mmol/L (22-29) 12/25/23 BUN 42 mg/dL (9-16) H 12/25/23 Creatinine 0.89 mg/dL (0.5-1.4) 12/25/23 Calcium 8.9 mg/dL (8.4-10.2) 12/25/23 Assessment & Plan Assessment & Plan (1) Hypertension: Code(s): I10 - Essential (primary) hypertension Category: Medical Qualifiers: Hypertension type: essential hypertension Qualified Code(s): I10 - Essential (primary) hypertension Plan Chichi has longstanding hypertension. She has history of CVA. She is not known to have any significant proteinuria. Her renal functions are at baseline. Her serum potassium is normal. She is compliant with her medications. She monitors her blood pressure very closely at home and has been at goal. She avoids nonsteroidal anti-inflammatory medications and maintain good hydration.Her renal cyst has been asymptomatic. She maintains a low-sodium diet. I did not make any medication changes today. All questions answered. Follow-up given Orders: Orders Creatinine 6 Months I10 - Essential (primary) hypertension Blood Urea Nitrogen 6 Months I10 - Essential (primary) hypertension Electrolytes 6 Months I10 - Essential (primary) hypertension Calcium 6 Months I10 - Essential (primary) hypertension Coding Level of Care Code Est Pt Level 4 (35322) Diagnoses Essential hypertension I10 Hypertension type: essential hypertension
[2024-01-28 11:33] VITALS: BP 128/50; PULSE 65; O2SAT 98; BMI 21.1
== END 2024-01-28 11:55 | disposition home or self-care (01) ==
PROVIDERS: PCP Internal Medicine; Visit Provider Internal Medicine Nephrology
DX: I10 Essential (primary) hypertension (principal)
CPT/HCPCS: 99213

== ENCOUNTER → 2024-01-28 11:29 | Outpatient (BNVA) | payer MEDICARE, OTHER, SELFPAY | PROVIDERS: PCP Internal Medicine; Visit Provider Internal Medicine Nephrology | DX: I10 Essential (primary) hypertension (principal) | CPT/HCPCS: 99212 ==

== ENCOUNTER 2024-02-16 11:18 | Outpatient (AMB) | payer MEDICARE, OTHER, SELFPAY ==
--- NOTE | 2024-02-16 11:24 | A.OFFVIS_ITS ---
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 She is being followed due to pelvic floor weakness, cystocele, chronic cystitis, and OAB symptoms. She was being treated with tolteridine, now doing well with gemtesa. She denies recent UTI symptoms. Review of charts: 08/18/23--Chichi is an 88-year-old female who presents today to the office for a follow-up. She is being followed due to pelvic floor weakness, cystocele, chronic cystitis, and OAB symptoms. She states she is doing well on tolteridine 4mg daily. She denies dysuria or hematuria. Will continue tolteridine. 02/14/2023?She has a past medical history of hypertension, GERD, COPD, dyslipidemia, and osteoporosis, ductal insitu breast cancer. She also has history of stroke. Patient has lower urinary tract symptoms of frequency and urge incontinence. She has been on nitrofurantoin 100mg daily for prophylaxis and feels that this has significantly helped and wants to continue this me dication. She was last seen by me on 10/16/2022 to discuss cystocele, exam noted mild pelvic floor laxity. I discontinued tolterodine at that time started Gemtesa 75 mg QD and Estrogen cream. Patient states that the cream has caused irritation on her skin and had burning sensation, so she has discontinued using the cream. Patient states that she has been taking Gemtesa 75 mg daily but she feels that she is not emptying her bladder as easily and states that she feels like she needs to go to the bathroom more frequently. I will resume tolterodine 4 mg as she tolerated it better. Cont. Nitrofurantoin 100mg daily. DC estrace cream. Follow-up in 6 months. 10/16/22--Pelvic exam: Mild cystocele, no significant prolapse, atrophic vaginitis noted. PFSH Medical History Hospital discharge follow-up Acute leg pain Facial paresthesia Swelling of lower extremity Right leg swelling Hypertensive urgency Constipation Frequent UTI Edema of left lower leg Leg cramping Primary hypertension Uncontrolled hypertension Left hip pain Left-sided weakness Left sided sciatica Adult general medical exam Screening for breast cancer Osteoarthritis of right hip Hospital discharge follow-up Vitamin D deficiency Hypercalcemia Multiple lacunar infarcts Hearing loss Urge urinary incontinence GERD (gastroesophageal reflux disease) COPD (chronic obstructive pulmonary disease) Hypertension Dyslipidemia Hypercalcemia Osteoporosis History of ductal carcinoma in situ (DCIS) of breast Surgical History History of right hip replacement History of colonoscopy History of lumpectomy of right breast History of pubovaginal sling H/O right inguinal hernia repair Family History Father Heart failure CVD (cardiovascular disease) Mother Breast cancer Social History Household Members: None Housing: House Do you presently have visiting nurse or other home services: No Alcohol intake: former Patient Tobacco Use Status: Former Tobacco user Tobacco use type: Cigarette e-Cigarette/Vaping Use: Never Used Second Hand Smoke Exposure: No Advance Directives Date on File: 10/19/21 service: No Current occupational status: retired Cognitive needs: Yes (CANE) Hearing needs: Yes (hearing aide) Vision needs: No (glaases) Review of Systems Const All systems reviewed & are unremarkable except as noted in HPI and below Reports no additional complaints Eyes Reports no additional complaints ENT Reports no additional complaints Card Reports no additional complaints Resp Reports no additional complaints GI Reports no additional complaints Reports as per HPI Musc Reports no additional complaints Skin/Breast Reports system reviewed and no additional complaints, except as documented Neuro Reports no additional complaints Psych Reports no additional complaints Endo Reports no additional complaints Adarsh/Lymph Reports no additional complaints Aller/Immun Reports no additional complaints Results AMB Urinalysis, Automated UA Leukoctes 0 Louie/uL Last Edit by ISREAL Bishop on 02/16/24 11:39 UA Nitrite Negative Last Edit by ISREAL Bishop on 02/16/24 11:39 UA Urobilinogen 0.2 mg/dL Last Edit by ISREAL Bishop on 02/16/24 11:3 9 UA Protein 0 mg/dL Last Edit by ISREAL Bishop on 02/16/24 11:39 UA pH 5.5 Last Edit by Nikita Rich [facility] on 02/16/24 11:39 UA Blood 0 Golden/uL Last Edit by Nikita Rich [facility] on 02/16/24 11:39 UA Specific [place] 1.025 Last Edit by Nikita Rich [facility] on 02/16/24 11: 39 UA Ketone Negative Last Edit by Nikita Rich [facility] on 02/16/24 11:39 UA Bilirubin 1 mg/dL Last Edit by Nikita Rich CCM on 02/16/24 11:39 UA Glucose 0 mg/dL Last Edit by Nikita Rich [facility] on 02/16/24 11:39 Results Reviewed Results Reviewed: Laboratory Last Values Urine pH (Auto) 5.5 02/16/24 11:38 Specific [place] (Auto) 1.025 02/16/24 11:38 Urine Protein (Auto) 0 mg/dL 02/16/24 11:38 Glucose (UA)(Auto) 0 mg/dL 02/16/24 11:38 Urine Ketones (Auto) Negative 02/16/24 11:38 Urine Blood (Auto) 0 Golden/uL 02/16/24 11:38 Urine Nitrite (Auto) Negative 02/16/24 11:38 Urine Bilirubin (Auto) 1 mg/dL 02/16/24 11:38 Urine Urobilinogen (Auto) 0.2 mg/dL 02/16/24 11:38 Leukocyte Esterase (Auto) 0 Louie/uL 02/16/24 11:38 Ordering Physician: Aye Johnson Date of Service: 08/29/22 EXAMINATION: US RETROPERITONEAL COMPLETE (RENAL) FINDINGS: RIGHT KIDNEY: 7.4 x 3.8 x 4.2 cm (SAG x AP x TRV). The kidney is small but normal in contour, and echogenicity. Renal cortical thickness is normal. There are multiple renal cysts. The largest measures 6.4 x 6.1 x 6.1 cm in the upper pole and has thin septations. No imaging follow-up recommended. No renal calculi or hydronephrosis. LEFT KIDNEY: 9.0 x 4.5 x 3.6 cm (SAG x AP x TRV). The kidney is slightly small but normal in contour, and echogenicity. Renal cortical thickness is normal. There are multiple renal cysts. The largest measures 3.1 x 2.6 x 2.4 cm exophytic to the midpole. No imaging follow-up recommended. No renal calculi or hydronephrosis. BLADDER: The bladder wall is normal in thickness. There is irregularity of the contour of the inferior bladder, question corresponding to a cystocele seen by CT. Bilateral ureteral jets are demonstrated. Prevoid bladder volume is 150 mL. Postvoid bladder volume was not obtained. IMPRESSION: Small kidneys. Bilateral renal cysts. Irregular contour or outpouching of the inferior bladder, question representing cystocele. Post void residual not obtained. Assessment & Plan Assessment & Plan (1) Cystocele, unspecified: Code(s): N81.10 - Cystocele, unspecified Category: Medical (2) Urge urinary incontinence: Code(s): N39.41 - Urge incontinence Category: Medical (3) Overactive bladder: Code(s): N32.81 - Overactive bladder Category: Medical (4) Renal cyst: Code(s): N28.1 - Cyst of kidney, acquired Category: Medical (5) Chronic cystitis: Code(s): N30.20 - Other chronic cystitis without hematuria Category: Medical (6) Atrophic vaginitis: Code(s): N95.2 - Postmenopausal atrophic vaginitis Category: Medical Plan Gemtesa 75 mg daily fu in 9 months Orders: Orders AMB Urinalysis Automated 02/16/24 Z13.9 - Encounter for screening, unspecified Medications: Refilled vibegron (Gemtesa) 75 mg PO DAILY 90 tabs 3RF 90 days Patient Instructions: The patient had an opportunity to ask questions regarding treatment plan. The patient expressed understanding and agreement with the above treatment plan. The patient is aware they should contact our office by phone for worsening of their current condition or the appearance of new symptoms. Compliance is encouraged with any medications and followup testing that is ordered. It is a privilege to be allowed the opportunity to participate in the urologic care of your patient. If you have any questions or concerns regarding treatment for the above conditions please do not hesitate to contact me. The office telephone contact is [phone]. This note is constructed in part using voice recognition software. While every effort has been made to ensure accuracy special forces medical sergeant errors may have been included. Yours sincerely, Daysi Euceda MD Coding Level of Care Code Est Pt Level 4 (16644) Diagnoses Cystocele, unspecified N81.10 Urge urinary incontinence N39.41 Overactive bladder N32.81 Renal cyst N28.1 Chronic cystitis N30.20 Atrophic vaginitis N95.2
== END 2024-02-16 12:17 | disposition home or self-care (01) ==
PROVIDERS: PCP Internal Medicine; Visit Provider Urology
DX: N81.10 Cystocele, unspecified (principal); N39.41 Urge incontinence; N32.81 Overactive bladder; N28.1 Cyst of kidney, acquired; N30.20 Other chronic cystitis without hematuria; N95.2 Postmenopausal atrophic vaginitis
CPT/HCPCS: 99214

== ENCOUNTER → 2024-02-16 11:18 | Outpatient (BNVA) | payer MEDICARE, OTHER, SELFPAY | PROVIDERS: PCP Internal Medicine; Visit Provider Urology | DX: N81.10 Cystocele, unspecified (principal); N95.2 Postmenopausal atrophic vaginitis; N39.41 Urge incontinence; N32.81 Overactive bladder; N28.1 Cyst of kidney, acquired; N30.20 Other chronic cystitis without hematuria | CPT/HCPCS: 81003; 99212 ==

== ENCOUNTER 2024-04-29 14:03 | Outpatient (AMB) | payer MEDICARE, OTHER, SELFPAY ==
--- NOTE | 2024-04-29 14:07 | MHC.PC.OV ---
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 Accompanied by: Self / Same As Patient Allergies cephalexin [Keflex] Allergy (Intermediate, Verified 04/29/24 14:19) Unknown tetracycline [Tetracycline] Allergy (Intermediate, Verified 04/29/24 14:19) TONGUE SWOLLEN Medication List - Last Reconciled 04/29/24 by Shirin Duron MD acetaminophen ER (Tylenol Arthritis Pain) 1,300 mg PO Q6H PRN amlodipine 5 mg PO BEDTIME 90 days aspirin (Adult Aspirin Regimen) 81 mg PO DAILY carvedilol 12.5 mg PO BID chlorthalidone 25 mg PO DAILY 90 days denosumab (Prolia) 60 mg subcut [id number] docusate sodium (Colace) 100 mg PO BID ezetimibe 10 mg PO BEDTIME ferrous sulfate ER (Slow Fe) 137 mg PO BID lansoprazole 30 mg PO DAILY@0630 losartan 100 mg PO DAILY rosuvastatin 10 mg PO BEDTIME tiotropium bromide 1.25 mcg/actuation (Spiriva Respimat) 2 puffs inhalation DAILY vibegron (Gemtesa) 75 mg PO DAILY 90 days walker Pediatric walker Tobacco use date assessed: 04/29/24 Fall risk assessment: No Falls in past year Last assessed Fall Risk: 04/29/24 Dental Screening Dental Screen Date: 04/29/24 Did you have a dental visit in the last 12 months?: No Did you have a dental problem in the last 6 months where you did not have access to dental care?: No Was dental information given to patient?: Patient has dentist HPI HPI Comments History of Present Illness Details The patient is an 89-year-old female presenting with extreme fatigue and weakness, especially in the legs, suspected to be secondary to anemia. The patient reports feeling increasingly tired around the time she is due for her iron supplementation, which she is currently managing with slow-acting ferrous sulfate tablets. She mentions previous blood work in March showing stable hemoglobin levels of 7.7. Despite ongoing treatment with iron supplementation, she continues to experience significant fatigue and weakness, especially in the legs, described as feeling elastic. These symptoms have been progressively worsening over the past several months. The patient has not experienced any visible bleeding. Dr. Steele suspects internal bleeding but it remains unidentified. No recent colonoscopy has been performed. She had a previous colonoscopy a long time ago but recent stool checks during a hip surgery rehabilitation showed no blood. She has hypertension well controlled with medications. GERD stable with PPIs. On Prolia for her osteoporosis. Walks with a cane for gait stability after having a stroke few years ago. On statins for her hyperlipidemia. Her COPD seems stable with inhaler. [facility] Medical History Hospital discharge follow-up Acute leg pain Facial paresthesia Swelling of lower extremity Right leg swelling Hypertensive urgency Constipation Frequent UTI Edema of left lower leg Leg cramping Primary hypertension Uncontrolled hypertension Left hip pain Left-sided weakness Left sided sciatica Adult general medical exam Screening for breast cancer Osteoarthritis of right hip Hospital discharge follow-up Vitamin D deficiency Hypercalcemia Multiple lacunar infarcts Hearing loss Urge urinary incontinence GERD (gastroesophageal reflux disease) COPD (chronic obstructive pulmonary disease) Hypertension Dyslipidemia Hypercalcemia Osteoporosis History of ductal carcinoma in situ (DCIS) of breast Surgical History History of right hip replacement History of colonoscopy History of lumpectomy of right breast History of pubovaginal sling H/O right inguinal hernia repair Family History Father Heart failure CVD (cardiovascular disease) Mother Breast cancer Social History Household Members: None Housing: House Do you presently have visiting nurse or other home services: No Alcohol intake: former Patient Tobacco Use Status: Former Tobacco user Tobacco use type: Cigarette e-Cigarette/Vaping Use: Never Used Second Hand Smoke Exposure: No Advance Directives Date on File: 10/19/21 service: No Current occupational status: retired Cognitive needs: Yes (CANE) Hearing needs: Yes (hearing aide) Vision needs: No (glaases) Questionnaire PHQ-9 Over the last 2 weeks, how often have you been bothered by any of the following problems? 1. Little interest or pleasure in doing things: not at all 2. Feeling down, depressed, or hopeless: not at all 3. Trouble falling or staying asleep, or sleeping too much: not at all 4. Feeling tired or having little energy: not at all 5. Poor appetite or overeating: not at all 6. Feeling bad about yourself - or that you are a failure or have let yourself or your family down: not at all 7. Trouble concentrating on things, such as reading the newspaper or watching television: not at all 8. Moving or speaking so slowly that other people could have noticed. Or the opposite - being so fidgety or restless that you have been moving around a lot more than usual: not at all 9. Thoughts that you would be better off or of hurting yourself in some way: not at all Total score: 0 Depression Screening Interpretation: Negative Depression Screening Done: Yes 85495 - PHQ-9 Billing: Yes Source: Developed by Drs. Lewis Lopez, Dixie Sharma, Clay Stevenson and colleagues, with an educational chucky from [employer]. Thrive Questionnaire Date Thrive assessed: 04/29/24 I am a: Patient What is your living situation today?: I have a steady place to live Within the past 12 months, did the food you bought not last and you didn't have the money to get more?: Never true Within the past 12 months, did you worry whether your food would run out before you got money to buy more?: Never true Do you have trouble paying for medicines?: No Do you have trouble getting transportation to medical appointments?: No Do you have trouble paying your heating and electricity bill?: No Do you have trouble taking care of your child, family member or friend?: No Do you have trouble with day-to-day activities such as bathing, preparing meals, shopping, managing finances, etc.?: No Are you currently unemployed and looking for a job?: No Are you interested in more education?: No Please select the resources that you would like help with: None Currently or been in a relationship where the following occur: No concerns reported THRIVE Score: 0 AUDIT C Alcohol Use Questionnaire (AUDIT-C) 1. How often do you have a drink containing alcohol?: Never Total Score: 0 LEMUEL-7 AMB Questionnaire LEMUEL-7 Date LEMUEL - 7 assessed: 04/29/24 Feeling nervous, anxious, or on edge: 0 = Not at all Not being able to stop or control worryin = Not at all Worrying too much about different things: 0 = Not at all Trouble relaxin = Not at all Being so restless that it is hard to sit still: 0 = Not at all Becoming easily annoyed or irritable: 0 = Not at all Feeling afraid as if something awful might happen: 0 = Not at all Total LEMUEL-7 score (0-4 normal; 5-9 mild; 10-14 moderate; 15-21 severe): 0 Source: Developed by Drs. Lewis Lopez, Dixie Sharma, Clay Stevenson and colleagues, with an educational chucky from [employer]. LEMUEL-7 Assessment Billing LEMUEL-7 Assessment Tool: LEMUEL-7 Assessment 52263 Review of Systems Const All systems reviewed & are unremarkable except as noted in HPI and below Card Denies chest pain at rest, Denies chest pain with activity, Denies edema, Denies irregular heart rhythm, Denies claudication, Denies dyspnea, Denies dyspnea on exertion, Denies orthopnea, Denies paroxysmal nocturnal dyspnea and Denies slow heart rate Resp Denies cough, Denies dyspnea and Denies dyspnea on exertion GI Denies abdominal pain, Denies change in bowel habits, Denies excessive flatus, Denies nausea and Denies vomiting Physical exam (Primary Care) Vital Signs: Last Vital Signs BP 124/58 L 04/29/24 14:08 BMI result Body Mass Index 20.8 Tobacco/Smoking Status: Tobacco use Status Tobacco use date assessed 04/29/24 04/29/24 14:13 Patient Tobacco Use Status Former Tobacco user 04/29/24 14:13 Tobacco use type Cigarette 04/29/24 14:13 e-Cigarette/Vaping Use Never Used 04/29/24 14:13 PHQ-9: PHQ-9 Score PHQ-9: Total score 0 04/29/24 15:36 Depression Screening Interpretation: Negative Thrive Assessment: Date of Thrive Assessment Date Thrive assessed 04/29/24 04/29/24 14:13 Currently or been in a relationship where the following occur: No concerns reported Resp Effort & Inspection: normal respiratory effort Auscultation: clear to auscultation bilaterally Cardio Jugular venous distension: no JVD Rate: regular rate Rhythm: regular rhythm Heart sounds: S1 normal heart sound present and S2 normal heart sound present Extrem General: Yes full ROM Coding Level of Care Code Est Pt Level 4 (05385) Complex EM visit Add On G2211 Diagnoses Iron deficiency anemia D50.9 Gastroesophageal reflux disease, unspecified whether esophagitis present K21.9 Esophagitis presence: esophagitis presence not specified Essential hypertension I10 Hypertension type: essential hypertension Chronic obstructive pulmonary disease, unspecified COPD type J44.9 COPD type: unspecified COPD Multiple lacunar infarcts I63.81 Dyslipidemia E78.5 Age-related osteoporosis without current pathological fracture M81.0 Osteoporosis type: age-related Presence of current pathological fracture: without current pathological fracture Additional Codes LEMUEL-7 Assessment Billing - LEMUEL-7 Assessment Tool: LEMUEL-7 Assessment 63504 ([id number]) PHQ-9 - 46074 - PHQ-9 Billing: Yes ([id number]) Time Spent (min) 22 Assessment & Plan Assessment & Plan (1) Iron deficiency anemia: Code(s): D50.9 - Iron deficiency anemia, unspecified Category: Medical (2) GERD (gastroesophageal reflux disease): Code(s): K21.9 - Gastro-esophageal reflux disease without esophagitis Category: Medical Qualifiers: Esophagitis presence: esophagitis presence not specified Qualified Code(s): K21.9 - Gastro-esophageal reflux disease without esophagitis (3) Hypertension: Code(s): I10 - Essential (primary) hypertension Category: Medical Qualifiers: Hypertension type: essential hypertension Qualified Code(s): I10 - Essential (primary) hypertension (4) COPD (chronic obstructive pulmonary disease): Code(s): J44.9 - Chronic obstructive pulmonary disease, unspecified Category: Medical Qualifiers: COPD type: unspecified COPD Qualified Code(s): J44.9 - Chronic obstructive pulmonary disease, unspecified (5) Multiple lacunar infarcts: Code(s): I63.81 - Other cerebral infarction due to occlusion or stenosis of small artery Category: Medical (6) Dyslipidemia: Code(s): E78.5 - Hyperlipidemia, unspecified Category: Medical (7) Osteoporosis: Code(s): M81.0 - Age-related osteoporosis without current pathological fracture Category: Medical Qualifiers: Osteoporosis type: age-related Presence of current pathological fracture: without current pathological fracture Qualified Code(s): M81.0 - Age-related osteoporosis without current pathological fracture Plan - Continue monitoring anemia and manage with ferrous sulfate supplementation. Assess the effectiveness during next follow-up. - Evaluate fatigue and leg weakness for possible relation to anemia and consider further investigations into potential sources of bleeding. - Continue current medications for hypertension, osteoporosis, and hyperlipidemia. - Advise patient to avoid taking heartburn medication directly with iron supplements to ensure proper absorption. - Discuss dietary modifications to support anemia management, including increasing iron-rich foods. - Support gait stability with continued use of mobility aids such as a cane and walker. Patient was informed and verbally consented to the use of an ambient scribe for clinic note documentation during this visit. During our discussion, I explained that the fatigue and leg weakness might be related to her anemia and the possible internal bleeding, which remains unidentified. We discussed the management of her condition with continued ferrous sulfate supplementation and the importance of dietary measures that support iron absorption. I emphasized the intake of ferrous sulfate from her morning heartburn medication, as absorption might be hindered due to interactions. We have agreed to monitor her symptoms closely, particularly her hemoglobin levels, and reassess based on her upcoming lab results. I discussed potential reasons why invasive procedures were not ideal considering her age and overall fragility, balancing potential benefits and risks of further testing. Orders: Orders Comprehensive [place]. Panel Fast 4 Months Z86.73 - Personal history of transient ischemic attack (TIA), and cerebral infarction without residual deficits Lipid Panel 4 Months E78.5 - Hyperlipidemia, unspecified Patient Instructions: - Schedule a follow-up appointment for blood work next week to reassess hemoglobin levels. - Continue taking ferrous sulfate tablets as prescribed but separate these from heartburn medication by at least an hour. - Use iron and vitamin-rich meals to help manage anemia. - Maintain balance and gait by using assistive devices, including her cane and walker. - Monitor for any signs of increased weakness or changes in her condition, and report promptly. - Take this week to rest and avoid strenuous activities, focusing on a balanced diet and hydration.
[2024-04-29 14:08] VITALS: BP 124/58; BMI 20.8
== END 2024-04-29 14:39 | disposition home or self-care (01) ==
PROVIDERS: PCP Internal Medicine; Visit Provider Internal Medicine
DX: D50.9 Iron deficiency anemia, unspecified (principal); J44.9 Chronic obstructive pulmonary disease, unspecified; I63.81 Other cerebral infarction due to occlusion or stenosis of small artery; K21.9 Gastro-esophageal reflux disease without esophagitis; I10 Essential (primary) hypertension; E78.5 Hyperlipidemia, unspecified; M81.0 Age-related osteoporosis without current pathological fracture

== ENCOUNTER → 2024-04-29 14:03 | Outpatient (BNVA) | payer MEDICARE, OTHER, SELFPAY | PROVIDERS: PCP Internal Medicine; Visit Provider Internal Medicine | DX: D50.9 Iron deficiency anemia, unspecified (principal); K21.9 Gastro-esophageal reflux disease without esophagitis; I10 Essential (primary) hypertension; J44.9 Chronic obstructive pulmonary disease, unspecified; I63.81 Other cerebral infarction due to occlusion or stenosis of small artery; E78.5 Hyperlipidemia, unspecified; M81.0 Age-related osteoporosis without current pathological fracture | CPT/HCPCS: 96127; 99212 ==

== ENCOUNTER 2024-05-16 11:50 | Observation (INO) | payer MEDICARE, OTHER, SELFPAY ==
[2024-05-16] VITALS (8 sets, daily range): BP systolic 126–168; BP diastolic 43–107; PULSE 53–72; RESP 15–18; TEMP 36.4–36.6; O2SAT 97–98; BMI 21.0
--- NOTE | 2024-05-16 | EEG_ITS ---
FINDINGS: Waking background activity consists of low voltage fast frequencies seen diffusely intermixed with 8 hertz posterior alpha frequency at moderate voltage. Drowsiness is characterized by diffuse theta slowing. Photic stimulation is without activation. No sleep stages are identified. No focal, lateralizing, or paroxysmal discharges are seen. IMPRESSION: This waking and drowsy EEG is considered within normal limits. MD BELLA Espinoza/WAGNER / [id number]
--- NOTE | ~2024-05-16 | CT_ITS ---
CLINICAL HISTORY: syncope CT angiography of the head and neck with contrast. With noncontrast head CT and with MIP MPR Postprocessing. Comparison: None Findings: Head CT without: No acute intracranial hemorrhage. Bilateral basal ganglia region old infarctions measure up to 0.8 cm. Portions of the acute infarction at anterior margin of the left insula measuring 0.9 cm. Mild bifrontal low-attenuation is nonspecific with moderate multifocal white matter pathology. White matter pathology likely due to combination of small-vessel ischemic disease and wallerian degeneration. Aspects 7. No midline shift or hydrocephalus accounting for mild generalized volume loss. Cavum velum interpositum noted. Small-minimal bilateral subdural hygromas. Vascular calcifications noted. Mucosal thickening of the paranasal sinuses. Imaged mastoid air cells are well aerated. No acute skull fracture accounting for motion artifacts. Previous cataract procedure changes noted. CTA head: Calcified and noncalcified plaque including bilateral carotid siphons. No ICA or M1 occlusion. Anterior communicating artery and accessory anterior communicating artery are patent. Mild asymmetry of the proximal ABEBE and MCA branches. The left vertebral artery is dominant. Right vertebral essentially terminates in the right PICA. The basilar artery is patent and tortuous. Tortuosity of the proximal transportation design engineer are otherwise unremarkable for technique and venous contamination. Multiple arachnoid granulations noted without definite dural venous sinus thrombosis. No opacified proximal intracranial arterial aneurysm. Retention cysts of the maxillary sinuses, left worse than right. CTA of the head and neck: Calcified and noncalcified plaque include aorta and its branches with mild stenosis of the imaged left subclavian. Calcified and noncalcified plaque include carotid bulbs and carotid bifurcations with moderate stenosis of the right ECA. Mild stenosis of the internal carotid artery with calcifications. No significant stenosis of the either internal carotid artery by NASCET criteria. The left vertebral artery is dominant. Mild stenosis of the proximal left vertebral and moderate stenosis of the proximal right vertebral. Tortuosity of the vessels noted. No dissection flap defined by 1 phase CTA. Scarring, motion, and emphysematous changes of the imaged lung apices. Degenerative changes include disc osteophyte complexes and facet arthropathy of the imaged spine. Metal and lucencies associated with multiple remaining imaged teeth. IMPRESSION: Head CT without: 1. No acute intracranial hemorrhage. 2. No large arterial territorial infarction. CTA head: 1. No ICA or M1 occlusion. 2. The basilar artery is patent CTA of the head and neck: 1. No significant stenosis of the either internal carotid artery by NASCET criteria. 2. The left vertebral artery is dominant. This document has been electronically signed by: Brandon Mayers MD on 05/16/2024 19:24:47
--- NOTE | 2024-05-16 12:18 | ED_ITS ---
HPI - General Adult General Chief complaint: Dizziness Stated complaint: WEAKNESS FROM [employer]ORATION[facility] PER EMS Time Seen by Provider: 05/16/24 12:03 Source: patient and EMS Mode of arrival: EMS Limitations: no limitations History of Present Illness ED Provider: Lori Mobley NP HPI narrative: Patient is an 89-year-old female who presents emergency department for evaluation. Reports that she was sitting in the pew at congregational when she suddenly began to feel lightheaded and felt a strong urge to have a bowel movement. Reports that she was at congregational with her sister. Does not appear to know who may have called EMS or how she got onto EMS stretcher. At this time she reports that the lightheadedness has subsided. She still has a mild urge to pass a bowel movement. She does state that she receives monthly blood transfusions due to anemia, states she was last transfused on 05/06/2024, but reports it is not always typical to have lightheadedness when she is having significant anemia. She denies any recent bleeding. Denies precipitating injury/fall, fevers, chills, headache, vision changes, neck pain, chest pain, shortness of breath, nausea, vomiting, abdominal pain, numbness or tingling of the extremities, symptoms. Related Data Home Medications ?Medication ?Instructions ?Recorded ?Confirmed aspirin 81 mg tablet,delayed 81 mg PO DAILY 02/24/20 05/16/24 release (Adult Aspirin Regimen) docusate sodium 100 mg capsule 100 mg PO BID PRN Constipation 09/24/23 05/16/24 (Colace) acetaminophen 650 mg 1,300 mg PO Q6H PRN Pain (Scale 12/21/23 05/16/24 tablet,extended release (Tylenol Score 1-3) Arthritis Pain) ezetimibe 10 mg tablet 10 mg PO BEDTIME 12/21/23 05/16/24 losartan 100 mg tablet 100 mg PO DAILY 01/02/24 05/16/24 ascorbic acid (vitamin C) 500 mg 500 mg PO BID 05/16/24 05/16/24 tablet (Vitamin C) Previous Rx's ?Medication ?Instructions ?Recorded walker #1 ea 06/28/23 lansoprazole 30 mg capsule,delayed 30 mg PO DAILY@0630 #90 caps 09/30/23 release amlodipine 5 mg tablet 5 mg PO BEDTIME 90 days #90 tabs 12/23/23 ferrous sulfate 137 mg (45 mg 137 mg PO BID #60 tabs 02/04/24 iron) tablet,extended release (Slow Fe) vibegron 75 mg tablet (Gemtesa) 75 mg PO DAILY 90 days #90 tabs 02/16/24 carvedilol 12.5 mg tablet 12.5 mg PO BID #180 tabs 03/02/24 chlorthalidone 25 mg tablet 25 mg PO DAILY 90 days #90 tabs 03/02/24 tiotropium bromide 1.25 2 puff inhalation DAILY #12 grams 03/12/24 mcg/actuation mist for inhalation (Spiriva Respimat) rosuvastatin 10 mg tablet 10 mg PO BEDTIME #90 tabs 04/28/24 Allergies Allergy/AdvReac Type Severity Reaction Status Date / Time cephalexin [Keflex] Allergy Intermediate Unknown Verified 05/16/24 12:30 tetracycline [Tetracycline] Allergy Intermediate TONGUE Verified 05/16/24 12:30 SWOLLEN Review of Systems 2 Review of Systems: Yes all other systems are reviewed and are negative [facility] Past Medical History Attestation statement: The following information was validated with the patient. Source: old records reviewed Medical History Hospital discharge follow-up Acute leg pain Facial paresthesia Swelling of lower extremity Right leg swelling Hypertensive urgency Constipation Frequent UTI Edema of left lower leg Leg cramping Primary hypertension Uncontrolled hypertension Left hip pain Left-sided weakness Left sided sciatica Adult general medical exam Screening for breast cancer Osteoarthritis of right hip Hospital discharge follow-up Vitamin D deficiency Hypercalcemia Multiple lacunar infarcts Hearing loss Urge urinary incontinence GERD (gastroesophageal reflux disease) COPD (chronic obstructive pulmonary disease) Hypertension Dyslipidemia Hypercalcemia Osteoporosis History of ductal carcinoma in situ (DCIS) of breast Surgical History History of right hip replacement History of colonoscopy History of lumpectomy of right breast History of pubovaginal sling H/O right inguinal hernia repair Family History Family History Father Heart failure CVD (cardiovascular disease) Mother Breast cancer Social History Social History Household Members: None Housing: House Do you presently have visiting nurse or other home services: No Alcohol intake: former Patient Tobacco Use Status: Former Tobacco user Tobacco use type: Cigarette Smoked in Last 30 Days: No e-Cigarette/Vaping Use: Never Used Second Hand Smoke Exposure: No Use of substances other than those prescribed or required for medical reasons: No Advance Directives: Yes Advance Directives on File: Yes Advance Directives Date on File: 10/19/21 Do you have a plan to hurt others: No Plan service: No Current occupational status: retired Cognitive needs: Yes (CANE) Hearing needs: Yes (hearing aide) Vision needs: No (glaases) Physical Exam ED Vital Signs: Vital Signs - 24 hr 05/16/24 12:26 05/16/24 12:30 05/16/24 12:31 Temperature 97.6 F Pulse Rate 53 53 53 Respiratory Rate 18 Blood Pressure 131/50 L 135/48 L 135/48 L Pulse Oximetry 98 Oxygen Delivery Method Room Air 05/16/24 12:32 05/16/24 14:45 Temperature 97.8 F Pulse Rate 57 63 Respiratory Rate 16 Blood Pressure 146/50 H 141/43 H Pulse Oximetry 97 Oxygen Delivery Method Room Air BMI result Body Mass Index 21.0 Appearance: Alert.?Oriented to person, place and time. No acute distress.?Normal affect. Eyes: Pupils equal, round and reactive to light.? ENT: Pharynx normal. Dry mucous membranes. She does admit to limiting oral intake due to chronic urgency issues with urination?? Neck: Normal inspection.? Neck supple.?? CVS: Heart sounds normal. Bradycardia appears consistent with baseline when compared to prior visits. Pulses normal.?? Respiratory: No respiratory distress.? Lung sounds clear to auscultation bilaterally?? Abdomen: Soft and non-tender. Normoactive bowel sounds. ?? Skin: Skin warm and dry.? Skin appears pale Extremities: No lower extremity edema.? No calf ttp? Neuro: Moves all extremities spontaneously. Sensation intact bilaterally. CN II- XII intact. No focal neuro deficits. Ambulates with slow steady gait. Course Reevaluation(s) Reevaluation #1: Orthostatic vital signs are negative. CBC revealing a stable chronic normocytic anemia that does not meet current transfusion criteria, no sources of active bleeding, no thrombocytopenia. No significant electrolyte derangement. No PEDRO. High sensitive troponin below detectable limits, EKG without acute ischemic findings; revealing a sinus bradycardia with first-degree AV block ARABELLA 216MS, right bundle-branch block as seen on prior, ventricular rate of 57, QTC 449. Viral serologies are negative. Reevaluation #2: Delta troponin is negative. Upon re-evaluation patient's sister is present at bedside. She informs me at this time that patient did not fact syncopize for a few moments at congregational. Can not quantify exactly how long. The patient original report as well as EMS was that she was feeling lightheaded but sister states that she was sitting next were and she in fact did see her pass out. She states this has happened once prior and she was seen in this emergency department. ED visit from 12/24/2023 Medications Administered Discontinued Medications Generic Name Dose Route Start Last Admin Trade Name Freq PRN Reason Stop Dose Admin Iohexol 100 ml 05/16/24 18:31 05/16/24 18:32 Iohexol 350 Mg/Ml 100 Ml Infus..Btl IV 05/16/24 18:32 70 ml ONCE ONE Administration Medical Decision Making Medical Decision Making MDM Narrative: Patient is an 89-year-old female with past medical history of hypertension, lumbar radiculopathy, osteoarthritis, osteoporosis, vitamin-D deficiency, urgent continence, GERD, COPD, chronic anemia, dyslipidemia, DCIS breast presents emergency department for evaluation of lightheadedness while sitting down at congregational in an urge to have a bowel movement. She did not get up or attempt to have a bowel movement. EMS was called she was transported to the hospital. She states that her lightheaded this has resolved but she does have a mild urge to still passing bowel movement at this time. She offers no additional physical complaints. She denies any preceding symptoms he was otherwise feeling well when she presented to congregational today. On evaluation she does have dry mucous membranes, she states that she does not drink much water due to her urinary urgency and urge incontinence, her skin appears pale no given her chronic anemia this may be baseline for her. Will obtain orthostatic vital signs as I suspect she is likely dehydrated which may be attributing to her lightheadedness. She has no focal neurological deficits on evaluation, no spontaneous or gaze evoked nystagmus, no ataxia, no diplopia, no dysarthria, no dysphagia, no dysphonia, no dysmetria, lower suspicion for CVA/acute intracranial pathology. Will obtain CBC to evaluate for leukocytosis/ anemia, CMP to evaluate for abnormal electrolytes /abnormal renal function/ abnormal hepatic function, EKG and troponin to evaluate for ischemia/ACS. Differential Diagnosis Differential Diagnoses: The differential diagnosis associated with the presentation includes (See narrative above) Admission/Observation Consideration of admission/observation: Escalation of care including admission/observation considered (See narrative above and course narrative for further detail) Lab Data MDM Lab Attestation statement: I reviewed the patient's lab results. 05/16/24 13:00 05/16/24 13:00 Labs: Lab Results 05/16/24 05/16/24 05/16/24 Range/Units 13:00 13:01 13:16 WBC 7.4 (4.8-10.8) X10*3/uL RBC 3.30 L D (4.20-5.50) X10*6/uL Hgb 9.9 L D (12.0-16.0) g/dl Hct 31.5 L D (37.0-47.0) % MCV 95.5 (80.0-98.0) fL MCH 30.0 (27.0-33.0) pg MCHC 31.4 (31.0-35.0) g/dl RDW 13.0 (11.0-16.0) % Plt Count 276 (160-400) X10*3/uL MPV 9.4 (9.4-12.3) fL Immature Gran % (Auto) 0.4 (0.0-0.4) % Neut % (Auto) 74.9 H (45-73) % Lymph % (Auto) 13.6 L (20-40) % [place] % (Auto) 9.6 (2-11) % Eos % (Auto) 1.1 (0-4) % Baso % (Auto) 0.4 (0-2) % Lymph # (Auto) 1.0 L (1.2-4.9) X10*3/uL [place] # (Auto) 0.7 (0.1-1.2) X10*3/uL Eos # (Auto) 0.1 (0.0-0.4) X10*3/uL Baso # (Auto) 0.0 (0.0-0.2) X10*3/uL Abs Immat Gran (auto) 0.03 (0.00-0.03) X10*3/uL Absolute Neuts (auto) 5.5 (2.0-8.3) x10*3/uL Absolute Nucleated RBC 0.000 (0.0-0.012) X10*3/uL Nucleated RBC % (auto) 0.0 (0.0-0.2) /100WBC PT 12.2 (10.9-12.4) SEC INR 1.0 (0.9-1.1) Sodium 143 (135-145) mmol/L Potassium 4.2 D (3.3-5.1) mmol/L Chloride 110 H (96-108) mmol/L Carbon Dioxide 24 (22-29) mmol/L Anion Gap 13 (12-20) BUN 40 H (9-16) mg/dL Creatinine 0.86 (0.5-1.4) mg/dL Estim Creat Clear Calc 26.9 Estimated GFR > 60 Random Glucose 127 H (60-115) mg/dL Calcium 10.1 D (8.4-10.2) mg/dL Magnesium 2.0 (1.6-2.6) mg/dL Total Bilirubin 0.5 (0.0-1.0) mg/dL AST 20 (5-31) U/L ALT 32 H (0-31) U/L Alkaline Phosphatase 54 (39-117) U/L Troponin I High Sens < 2.7 (<3.5-17.0) ng/L Total Protein 6.4 L (6.5-8.0) g/dL Albumin 3.3 L (3.5-5.0) g/dL Lipase 27 (8-78) U/L Influenza Type A (PCR) NEGATIVE (Negative) Influenza Type B (PCR) NEGATIVE (Negative) RSV RNA Qual (PCR) NEGATIVE (Negative) SARS-CoV-2 RNA (RT-PCR) NEGATIVE (Negative) Blood Type O Negative Antibody Screen NEGATIVE 05/16/24 Range/Units 15:04 WBC (4.8-10.8) X10*3/uL RBC (4.20-5.50) X10*6/uL Hgb (12.0-16.0) g/dl Hct (37.0-47.0) % MCV (80.0-98.0) fL MCH (27.0-33.0) pg MCHC (31.0-35.0) g/dl RDW (11.0-16.0) % Plt Count (160-400) X10*3/uL MPV (9.4-12.3) fL Immature Gran % (Auto) (0.0-0.4) % Neut % (Auto) (45-73) % Lymph % (Auto) (20-40) % [place] % (Auto) (2-11) % Eos % (Auto) (0-4) % Baso % (Auto) (0-2) % Lymph # (Auto) (1.2-4.9) X10*3/uL [place] # (Auto) (0.1-1.2) X10*3/uL Eos # (Auto) (0.0-0.4) X10*3/uL Baso # (Auto) (0.0-0.2) X10*3/uL Abs Immat Gran (auto) (0.00-0.03) X10*3/uL Absolute Neuts (auto) (2.0-8.3) x10*3/uL Absolute Nucleated RBC (0.0-0.012) X10*3/uL Nucleated RBC % (auto) (0.0-0.2) /100WBC PT (10.9-12.4) SEC INR (0.9-1.1) Sodium (135-145) mmol/L Potassium (3.3-5.1) mmol/L Chloride (96-108) mmol/L Carbon Dioxide (22-29) mmol/L Anion Gap (12-20) BUN (9-16) mg/dL Creatinine (0.5-1.4) mg/dL Estim Creat Clear Calc Estimated GFR Random Glucose (60-115) mg/dL Calcium (8.4-10.2) mg/dL Magnesium (1.6-2.6) mg/dL Total Bilirubin (0.0-1.0) mg/dL AST (5-31) U/L ALT (0-31) U/L Alkaline Phosphatase (39-117) U/L Troponin I High Sens 3.5 (<3.5-17.0) ng/L Total Protein (6.5-8.0) g/dL Albumin (3.5-5.0) g/dL Lipase (8-78) U/L Influenza Type A (PCR) (Negative) Influenza Type B (PCR) (Negative) RSV RNA Qual (PCR) (Negative) SARS-CoV-2 RNA (RT-PCR) (Negative) Blood Type Antibody Screen Independent Interpretation I performed an independent interpretation of an: EKG Interpretation: Rate: Rhythm:? [place]:? Normal P waves.? Normal ARABELLA.?? Normal QRS complex.?? ST T wave :?? qTC: prior studies:? The study has been interpreted contemporaneously by me. Independent Historian Clinical information obtained from an independent historian. History obtained from or confirmed by: EMS External Record Review External record reviewed: Inpatient record and Outpatient record Discharge Plan Discharge Clinical Impression: Syncope, Atrioventricular block, first degree Patient Disposition: Admitted As Inpatient
--- NOTE | 2024-05-16 12:26 | ECG_ITS ---
Test Reason : dizziness Blood Pressure : */* mmHG Vent. Rate : 57 BPM Atrial Rate : 57 BPM P-R Int : 216 ms QRS Dur : 140 ms QT Int : 462 ms P-R-T Axes : 53 92 37 degrees QTcB Int : 449 ms Sinus bradycardia with 1st degree A-V block Right bundle branch block Abnormal ECG When compared with ECG of 25-Dec-2023 19:41, DC interval has increased Referred By: Lori Mobley Electronically Signed By: HEAVENLY MOORE
[2024-05-16 13:06] LABS: MANUAL DIFF FLAG NO
[2024-05-16 13:10] LABS: Basophils Percent Auto 0.4 % (0-2); Eosinophils Absolute Auto 0.1 X10*3/uL (0.0-0.4); Eosinophils Percent Auto 1.1 % (0-4); Hematocrit 31.5 % (37.0-47.0); Hemoglobin 9.9 g/dl (12.0-16.0); Imm Gran Abs Auto 0.03 X10*3/uL (0.00-0.03); Imm Gran Pct Auto 0.4 % (0.0-0.4); Lymphocytes Percent Auto 13.6 % (20-40); Mean Corpuscular HGB Conc 31.4 g/dl (31.0-35.0); Mean Corpuscular Volume 95.5 fL (80.0-98.0); Mean Platelet Volume 9.4 fL (9.4-12.3); Monocytes Absolute Auto 0.7 X10*3/uL (0.1-1.2); Monocytes Percent Auto 9.6 % (2-11); Neutrophils Absolute Auto 5.5 x10*3/uL (2.0-8.3); Neutrophils Percent Auto 74.9 % (45-73); Platelet Count 276 X10*3/uL (160-400); White Blood Count 7.4 X10*3/uL (4.8-10.8)
[2024-05-16 13:16] LABS: Prothrombin Time 12.2 SEC (10.9-12.4)
[2024-05-16 13:34] LABS: Alanine Aminotransferase 32 U/L (0-31); Albumin Level 3.3 g/dL (3.5-5.0); Alkaline Phosphatase 54 U/L (39-117); Anion Gap 13 (12-20); Aspartate Amino Transferase 20 U/L (5-31); Bilirubin Total 0.5 mg/dL (0.0-1.0); Blood Urea Nitrogen 40 mg/dL (9-16); Calcium 10.1 mg/dL (8.4-10.2); Carbon Dioxide 24 mmol/L (22-29); Chloride 110 mmol/L (96-108); Creatinine Clr Calc Pharmacy 26.9; Estimated Glomerular Filt Rate > 60; Glucose Random 127 mg/dL (60-115); Lipase 27 U/L (8-78); Potassium 4.2 mmol/L (3.3-5.1); Sodium 143 mmol/L (135-145); Total Protein 6.4 g/dL (6.5-8.0); Troponin-I High Sensitivity < 2.7 ng/L (<3.5-17.0)
[2024-05-16 13:53] LABS: Influenza A PCR NEGATIVE (Negative); Influenza B PCR NEGATIVE (Negative); Resp Syncy Virus RNA Qual PCR NEGATIVE (Negative); SARS COV2 PCR INHOUSE NEGATIVE (Negative)
--- NOTE | 2024-05-16 14:59 | PC.NURSE ---
Pt resting quietly on stretcher, VSS, second trop currently being drawn, unable to provide urine sample at this time.
[2024-05-16 15:33] LABS: Troponin-I High Sensitivity 3.5 ng/L (<3.5-17.0)
--- NOTE | 2024-05-16 17:31 | P.HPHOSP_ITS ---
History of Present Illness Date of Service: 05/16/24 Chief Complaint: syncope 89-year-old female who presents emergency department for evaluation. Reports that she was sitting in the pew [facility] when she suddenly began to feel lightheaded and felt a strong urge to have a bowel movement. Reports that she was at [facility] with her sister. Does not appear to know who may have called EMS or how she got onto EMS stretcher. At this time she reports that the lightheadedness has subsided. She still has a mild urge to pass a bowel movement. She does state that she receives monthly blood transfusions due to anemia, states she was last transfused on 05/06/2024, but reports it is not always typical to have lightheadedness when she is having significant anemia. She states shortly before this happened she felt like she had to move her bowels and was slightly nauseous and then remembers nothing until ambulance arrived. In the emergency room workup essentially unremarkable Review of Systems 2 Review of Systems: Denies chest pain Denies shortness of breath Denies nausea vomiting diarrhea Denies fever chills PMFSH Medical History Hospital discharge follow-up Acute leg pain Facial paresthesia Swelling of lower extremity Right leg swelling Hypertensive urgency Constipation Frequent UTI Edema of left lower leg Leg cramping Primary hypertension Uncontrolled hypertension Left hip pain Left-sided weakness Left sided sciatica Adult general medical exam Screening for breast cancer Osteoarthritis of right hip Hospital discharge follow-up Vitamin D deficiency Hypercalcemia Multiple lacunar infarcts Hearing loss Urge urinary incontinence GERD (gastroesophageal reflux disease) COPD (chronic obstructive pulmonary disease) Hypertension Dyslipidemia Hypercalcemia Osteoporosis History of ductal carcinoma in situ (DCIS) of breast Family History Father Heart failure CVD (cardiovascular disease) Mother Breast cancer Surgical History History of right hip replacement History of colonoscopy History of lumpectomy of right breast History of pubovaginal sling H/O right inguinal hernia repair Social History Household Members: None Housing: House Do you presently have visiting nurse or other home services: No Alcohol intake: former Patient Tobacco Use Status: Former Tobacco user Tobacco use type: Cigarette Smoked in Last 30 Days: No e-Cigarette/Vaping Use: Never Used Second Hand Smoke Exposure: No Use of substances other than those prescribed or required for medical reasons: No Advance Directives: Yes Advance Directives on File: Yes Advance Directives Date on File: 10/19/21 Do you have a plan to hurt others: No Plan service: No Current occupational status: retired Cognitive needs: Yes (CANE) Hearing needs: Yes (hearing aide) Vision needs: No (glaases) Meds Allergies Allergy/AdvReac Type Severity Reaction Status Date / Time cephalexin [Keflex] Allergy Intermediate Unknown Verified 05/16/24 12:30 tetracycline [Tetracycline] Allergy Intermediate TONGUE Verified 05/16/24 12:30 SWOLLEN Active Medications: Current Medications Acetaminophen (Acetaminophen 325 Mg Tablet) 650 mg PO Q6H PRN PRN Reason: Pain, Mild 1-3,fever,headache Calcium Carbonate (Calcium Carbonate 750 Mg Tab.Chew) 750 mg PO Q4H PRN PRN Reason: Heartburn Enoxaparin Sodium (Enoxaparin Sodium 30 Mg/0.3 Ml Syringe) 30 mg SUBCUT Q24H [facility] Magnesium Hydroxide (Milk Of Magnesia 30 Ml Oral.Susp) 30 ml PO DAILY PRN PRN Reason: Constipation Melatonin (Melatonin 3 Mg Tablet) 6 mg PO BEDTIME PRN PRN Reason: Insomnia Ondansetron HCl (Ondansetron Hcl 4 Mg/2 Ml Vial) 4 mg IVPUSH Q8H PRN PRN Reason: Nausea and Vomiting Sodium Chloride (0.9 % Sodium Chloride Flush 3 Ml Syringe) 3 [facility] Home Medications ?Medication ?Instructions ?Recorded ?Confirmed ?Last Taken ?Type aspirin 81 mg tablet,delayed 81 mg PO DAILY 02/24/20 05/05/24 12/21/23 History release (Adult Aspirin Regimen) denosumab 60 mg/mL subcutaneous 60 mg subcut [id number] 05/16/20 05/05/24 05/22/21 History syringe (Prolia) docusate sodium 100 mg capsule 100 mg PO BID 09/24/23 05/05/24 12/21/23 History (Colace) acetaminophen 650 mg 1,300 mg PO Q6H PRN Pain (Scale 12/21/23 05/05/24 Unknown History tablet,extended release (Tylenol Score 1-3) Arthritis Pain) ezetimibe 10 mg tablet 10 mg PO BEDTIME 12/21/23 05/05/24 Unknown History losartan 100 mg tablet 100 mg PO DAILY 01/02/24 05/05/24 Unknown History ascorbic acid (vitamin C) 25 mg 25 mg PO DAILY 05/05/24 05/05/24 Unknown History tablet Physical Exam 2 Vital Signs and Narrative: Vital Signs: Last Vital Signs Temp 97.8 F 05/16/24 14:45 Pulse 63 05/16/24 14:45 Resp 16 05/16/24 14:45 BP 141/43 H 05/16/24 14:45 Pulse Ox 97 05/16/24 14:45 O2 Del Method Room Air 05/16/24 14:45 BMI result Body Mass Index 21.0 Const: Other: Awake alert oriented x3 in no acute distress Resp: Other: Clear to auscultation bilaterally no rales rhonchi or wheezes Cardio: Other: No S4; positive S1-S2; no S3 murmurs rubs or gallops GI: Other: Soft nontender nondistended normoactive bowel sounds Neuro: Other: Cranial nerves 2-12 grossly intact as tested. Motor is 5/5 all extremities. Sensation is intact. Cognition appropriate. Gait not observed Extrem: Other: No edema bilaterally Results Labs 05/16/24 13:00 05/16/24 13:00 Labs: Laboratory Results - last 24 hr 05/16/24 05/16/24 05/16/24 13:00 13:01 13:16 MCV 95.5 MCH 30.0 MCHC 31.4 RDW 13.0 Plt Count 276 MPV 9.4 Immature Gran % (Auto) 0.4 Neut % (Auto) 74.9 H Lymph % (Auto) 13.6 L [place] % (Auto) 9.6 Eos % (Auto) 1.1 Baso % (Auto) 0.4 Lymph # (Auto) 1.0 L [place] # (Auto) 0.7 Eos # (Auto) 0.1 Baso # (Auto) 0.0 Abs Immat Gran (auto) 0.03 Absolute Neuts (auto) 5.5 Absolute Nucleated RBC 0.000 Nucleated RBC % (auto) 0.0 PT 12.2 INR 1.0 Anion Gap 13 Estim Creat Clear Calc 26.9 Estimated GFR > 60 Random Glucose 127 H Calcium 10.1 D Magnesium 2.0 Total Bilirubin 0.5 AST 20 ALT 32 H Alkaline Phosphatase 54 Troponin I High Sens < 2.7 Total Protein 6.4 L Albumin 3.3 L Lipase 27 Influenza Type A (PCR) NEGATIVE Influenza Type B (PCR) NEGATIVE RSV RNA Qual (PCR) NEGATIVE SARS-CoV-2 RNA (RT-PCR) NEGATIVE Blood Type O Negative Antibody Screen NEGATIVE 05/16/24 15:04 MCV MCH MCHC RDW Plt Count MPV Immature Gran % (Auto) Neut % (Auto) Lymph % (Auto) [place] % (Auto) Eos % (Auto) Baso % (Auto) Lymph # (Auto) [place] # (Auto) Eos # (Auto) Baso # (Auto) Abs Immat Gran (auto) Absolute Neuts (auto) Absolute Nucleated RBC Nucleated RBC % (auto) PT INR Anion Gap Estim Creat Clear Calc Estimated GFR Random Glucose Calcium Magnesium Total Bilirubin AST ALT Alkaline Phosphatase Troponin I High Sens 3.5 Total Protein Albumin Lipase Influenza Type A (PCR) Influenza Type B (PCR) RSV RNA Qual (PCR) SARS-CoV-2 RNA (RT-PCR) Blood Type Antibody Screen Assessment and Plan (1) Syncope: Qualifiers: Syncope type: unspecified Qualified Code(s): R55 - Syncope and collapse Status: Resolved (2) Hypertension: Qualifiers: Hypertension type: essential hypertension Qualified Code(s): I10 - Essential (primary) hypertension Status: Acute Plan 89 year old female with a history of anemia history of CVA hypertension and COPD presents after syncopal episode in [facility]. Patient did recount feeling like she had to have a bowel movement and slightly nauseous and then awoke to ambulance. Had a similar presentation last fall with unremarkable workup including a 30 day monitor 1. Syncope (question vasovagal) -admit to telemetry -CTA head and neck -EEG -neuro consult in a.m. 2. Hypertension -acceptable control on current therapies -adjust as indicated 3. Iron deficiency anemia -at baseline -outpatient follow up Full code Lovenox Patient will require an overnight stay to complete testing and workup for syncope Quality Stroke Does the patient have a stroke diagnosis?: No VTE Prior VTE?: No VTE Risk Level:: Medical - moderate - high VTE Device Contraindication: Treatment Not Indicated VTE Drug Contraindication: N/A - Med Ordered
--- NOTE | 2024-05-16 18:30 | PHA.MEDREC ---
Pharmacy Consult ? Medication Reconciliation Pharmacy has completed the medication reconciliation. Spoke to patient at bedside who confirmed all meds. Noted she cannot tolerate regular iron, I did ask her to see if someone could bring in the slow release for her, as well as her Gemtasa
[2024-05-16] MEDS: iohexoL 350 MG/ML 100 ML INFUS..BTL IV (18:32)
[2024-05-16] MEDS: Enoxaparin Sodium 30 MG/0.3 ML SYRINGE SUBCUT (18:58)
[2024-05-16 19:25] LABS: Appearance Urine Clear; Color Urine Yellow; Glucose Urine UA Negative (Negative); Leukocyte Esterase Urine Negative (Negative); Nitrite Urine Negative (Negative); PH 5.5 (5.0-9.0); Specific Gravity - Urine 1.025 (1.005-1.025); Urine Blood Negative (Negative); Urine Ketones Negative (Negative); Urine Protein Negative (Neg-Trace)
[2024-05-17] VITALS (10 sets, daily range): BP systolic 103–180; BP diastolic 44–74; PULSE 53–64; RESP 18–20; TEMP 36.7–37.2; O2SAT 94–100; BMI 20.4
[2024-05-17] MEDS: 0.9 % Sodium Chloride Flush 3 ML SYRINGE IVFLUSH ×4 (00:30→20:15)
--- NOTE | 2024-05-17 03:43 | PC.NURSE ---
Patient asleep comfortably, respirations even and unlabored. Call aguilar within patient's reach. Plan of care ongoing.
[2024-05-17 06:38] LABS: MANUAL DIFF FLAG NO
[2024-05-17 06:56] LABS: Basophils Percent Auto 0.2 % (0-2); Eosinophils Absolute Auto 0.1 X10*3/uL (0.0-0.4); Eosinophils Percent Auto 1.2 % (0-4); Hematocrit 28.4 % (37.0-47.0); Hemoglobin 9.1 g/dl (12.0-16.0); Imm Gran Abs Auto 0.01 X10*3/uL (0.00-0.03); Imm Gran Pct Auto 0.2 % (0.0-0.4); Lymphocytes Absolute Auto 1.3 X10*3/uL (1.2-4.9); Lymphocytes Percent Auto 25.4 % (20-40); Mean Corpuscular Hemoglobin 29.9 pg (27.0-33.0); Mean Corpuscular Volume 93.4 fL (80.0-98.0); Mean Platelet Volume 9.8 fL (9.4-12.3); Monocytes Absolute Auto 0.6 X10*3/uL (0.1-1.2); Monocytes Percent Auto 12.6 % (2-11); Neutrophils Percent Auto 60.4 % (45-73); Platelet Count 250 X10*3/uL (160-400); Red Blood Count 3.04 X10*6/uL (4.20-5.50); Red Cell Distribution Width 12.8 % (11.0-16.0); White Blood Count 4.9 X10*3/uL (4.8-10.8)
[2024-05-17 06:59] LABS: Alanine Aminotransferase 9 U/L (0-31); Alkaline Phosphatase 52 U/L (39-117); Anion Gap 11 (12-20); Aspartate Amino Transferase 15 U/L (5-31); Bilirubin Total 0.3 mg/dL (0.0-1.0); Blood Urea Nitrogen 36 mg/dL (9-16); Calcium 9.6 mg/dL (8.4-10.2); Carbon Dioxide 23 mmol/L (22-29); Chloride 112 mmol/L (96-108); Creatinine Clr Calc Pharmacy 28.6; Estimated Glomerular Filt Rate > 60; Glucose Random 85 mg/dL (60-115); Potassium 3.5 mmol/L (3.3-5.1); Sodium 142 mmol/L (135-145); Total Protein 5.7 g/dL (6.5-8.0)
--- NOTE | 2024-05-17 08:58 | MHC.CM.PN ---
CM met with Patient at bedside and addressed PALOMO with her, providing Patient with the original and a copy has been placed on the chart. Patient lives alone in a house and uses a cane at times to assist with mobility. Home/? new VNA pending PT Eval is the tentative plan and Patient's goal; CM has initiated and will follow for dc planning. Patient has confirmed that her Sister/Wanda is her HCP and that she will drive her home at time of dc.
[2024-05-17] MEDS: Aspirin Enteric Coated 81 MG TABLET.DR PO (09:08)
[2024-05-17] MEDS: Losartan Potassium 50 MG TABLET 100 MG PO (09:08)
[2024-05-17] MEDS: carvediloL 12.5 MG TABLET PO ×2 (09:08→20:13)
[2024-05-17] MEDS: Ascorbic Acid 500 MG TABLET PO (09:09)
--- NOTE | 2024-05-17 10:07 | PM.CNCAR ---
History of Present Illness History of Present Illness Date of Service: 05/17/24 Chief complaint: Near-syncope Narrative: This is a cardiology consultation regarding syncopal episode. History obtained from patient. Apparently she was at [employer]. She was not feeling well as she had some abdominal cramps. She wanted to go for bowel movement. Just around that time, it seems she passed out but she can not exactly recall what truly happened. Today she is no longer having any dizziness/syncopal type symptoms but she is still having some cramps in the abdomen and some nausea. She does not have any other complaints like angina or shortness of breath or any other cardiac sounding symptoms. Review of Systems Review of Systems: Yes all other systems are reviewed and are negative Constitutional: Constitutional: Reports as per HPI and Reports no additional constitutional complaints Eyes: Eyes: Reports as per HPI and Denies no additional eye complaints ENT: Denies system reviewed and no additional complaints, except as documented and Reports as per HPI Cardiovascular: Cardiovascular: Reports as per HPI, Reports no additional cardiovascular complaints, Denies acrocyanosis, Denies cool extremities, Denies chest pain, Denies leg edema, Reports lightheadedness, Reports Loss of Consciousness, Denies palpitations and Denies dyspnea Respiratory: Respiratory: Reports as per HPI, Denies no additional respiratory complaints and Denies dyspnea Gastrointestinal: Gastrointestinal: Reports as per HPI and Denies no additional gastrointestinal complaints Genitourinary: Genitourinary: Reports as per HPI Musculoskeletal: Musculoskeletal: Reports no additional musculoskeletal complaints and Reports as per HPI Integumentary/Breasts: Skin/Breast: Reports system reviewed and no additional complaints, except as docu Neurologic: Reports system reviewed and no additional complaints, except as documented and Reports as per HPI Psychiatric: Psychiatric: Reports no additional psychiatric complaints and Reports as per HPI Endocrine: Endocrine: Reports no additional endocrine complaints, Reports as per HPI and Denies palpitations Hematologic/Lymphatic: Hematologic/Lymphatic: Reports no additional hematologic/lymphatic complaints and Reports as per HPI Allergic/Immunologic: Allergic/Immunologic: Reports no additional allergic/immunologic complaints and Reports as per HPI [facility] Past Medical History Medical History Hospital discharge follow-up Acute leg pain Facial paresthesia Swelling of lower extremity Right leg swelling Hypertensive urgency Constipation Frequent UTI Edema of left lower leg Leg cramping Primary hypertension Uncontrolled hypertension Left hip pain Left-sided weakness Left sided sciatica Adult general medical exam Screening for breast cancer Osteoarthritis of right hip Hospital discharge follow-up Vitamin D deficiency Hypercalcemia Multiple lacunar infarcts Hearing loss Urge urinary incontinence GERD (gastroesophageal reflux disease) COPD (chronic obstructive pulmonary disease) Hypertension Dyslipidemia Hypercalcemia Osteoporosis History of ductal carcinoma in situ (DCIS) of breast Family History Family History Father Heart failure CVD (cardiovascular disease) Mother Breast cancer Surgical History Surgical History History of right hip replacement History of colonoscopy History of lumpectomy of right breast History of pubovaginal sling H/O right inguinal hernia repair Social History Social History Household Members: None Household Members Other:: alone Housing: House Do you presently have visiting nurse or other home services: No Alcohol intake: former Patient Tobacco Use Status: Former Tobacco user Tobacco use type: Cigarette e-Cigarette/Vaping Use: Never Used Second Hand Smoke Exposure: No Advance Directives Date on File: 10/19/21 service: No Current occupational status: retired Cognitive needs: Yes (CANE) Hearing needs: Yes (hearing aide) Vision needs: No (glaases) Meds Allergies Allergy/AdvReac Type Severity Reaction Status Date / Time cephalexin [Keflex] Allergy Intermediate Unknown Verified 05/16/24 12:30 tetracycline [Tetracycline] Allergy Intermediate TONGUE Verified 05/16/24 12:30 SWOLLEN Active Medications: Current Medications Acetaminophen (Acetaminophen 325 Mg Tablet) 650 mg PO Q6H PRN PRN Reason: Pain, Mild 1-3,fever,headache Amlodipine Besylate (Amlodipine Besylate 5 Mg Tablet) 5 mg PO BEDTIME [facility]; Protocol Ascorbic Acid (Ascorbic Acid 500 Mg Tablet) 500 mg PO BID [facility] Last Admin: 05/17/24 09:09 Dose: 500 mg Aspirin (Aspirin Enteric Coated 81 Mg Tablet.Dr) 81 mg PO DAILY [facility] Last Admin: 05/17/24 09:08 Dose: 81 mg Atorvastatin Calcium (Atorvastatin Calcium 40 Mg Tablet) 40 mg PO DAILY [facility] Calcium Carbonate (Calcium Carbonate 750 Mg Tab.Chew) 750 mg PO Q4H PRN PRN Reason: Heartburn Carvedilol (Carvedilol 12.5 Mg Tablet) 12.5 mg PO BID [facility]; Protocol Last Admin: 05/17/24 09:08 Dose: 12.5 mg Docusate Sodium (Docusate Sodium 100 Mg Capsule) 100 mg PO BID PRN PRN Reason: Constipation Ezetimibe (Ezetimibe 10 Mg Tablet) 10 mg PO BEDTIME [facility] Enoxaparin Sodium (Enoxaparin Sodium 30 Mg/0.3 Ml Syringe) 30 mg SUBCUT Q24H [facility] Last Admin: 05/16/24 18:58 Dose: 30 mg Losartan Potassium (Losartan Potassium 50 Mg Tablet) 100 mg PO DAILY [facility]; Protocol Last Admin: 05/17/24 09:08 Dose: 100 mg Magnesium Hydroxide (Milk Of Magnesia 30 Ml Oral.Susp) 30 ml PO DAILY PRN PRN Reason: Constipation Melatonin (Melatonin 3 Mg Tablet) 6 mg PO BEDTIME PRN PRN Reason: Insomnia Non-Formulary Medication (Tiotropium Lyman [Spiriva Respimat]) 2 puff INHALE DAILY [facility] Non-Formulary Medication (Vibegron [Gemtesa]) 75 mg PO DAILY [facility] Omeprazole (Omeprazole 20 Mg Capsule.Dr) 20 mg PO DAILY@0630 [facility] Ondansetron HCl (Ondansetron Hcl 4 Mg/2 Ml Vial) 4 mg IVPUSH Q8H PRN PRN Reason: Nausea and Vomiting Polyethylene Glycol (Polyethylene Glycol 3350 17 Gm Powd.Pack) 17 gm PO DAILY [facility] Sodium Chloride (0.9 % Sodium Chloride Flush 3 Ml Syringe) 3 ml IVFLUSH QSHIFT [facility] Last Admin: 05/17/24 09:11 Dose: 3 ml Home Medications ?Medication ?Instructions ?Recorded ?Confirmed ?Last Taken ?Type aspirin 81 mg tablet,delayed 81 mg PO DAILY 02/24/20 05/16/24 05/16/24 History release (Adult Aspirin Regimen) docusate sodium 100 mg capsule 100 mg PO BID PRN Constipation 09/24/23 05/16/24 12/21/23 History (Colace) acetaminophen 650 mg 1,300 mg PO Q6H PRN Pain (Scale 12/21/23 05/16/24 Unknown History tablet,extended release (Tylenol Score 1-3) Arthritis Pain) ezetimibe 10 mg tablet 10 mg PO BEDTIME 12/21/23 05/16/24 Unknown History losartan 100 mg tablet 100 mg PO DAILY 01/02/24 05/16/24 05/16/24 History ascorbic acid (vitamin C) 500 mg 500 mg PO BID 05/16/24 05/16/24 05/16/24 History tablet (Vitamin C) Physical Exam Vital Signs: Vital Signs: Last Vital Signs Temp 98.8 F 05/17/24 09:24 Pulse 55 05/17/24 09:24 Resp 20 05/17/24 09:24 BP 168/73 H 05/17/24 09:24 Pulse Ox 95 05/17/24 09:24 O2 Del Method Room Air 05/17/24 09:24 BMI result Body Mass Index 20.4 Const: General: comfortable and no acute distress Orientation/consciousness: patient oriented x3 HEENT: Other: Unremarkable Head: Yes normal to inspection Neck: Neck: Yes normal visual inspection Chest: Chest palpation & inspection: normal inspection of the chest Resp: Auscultation: clear to auscultation bilaterally Cardio: Palpation: normal PMI Heart sounds: S1 normal heart sound present, S2 normal heart sound present, no gallops, no murmurs and no rubs GI: Palpation (GI): Soft to palpation Back/Spine/Pelvis: Other: unremarkable Skin: General skin exam: no rashes or lesions noted Neuro: General: patient oriented x3 Extrem: General: Yes normal to inspection Psych: Mental Status: mental status grossly normal Objective Labs and Meds 05/17/24 05:04 05/17/24 05:04 Lab results: Laboratory Results - last 24 hr 05/16/24 05/16/24 05/16/24 13:00 13:01 13:16 WBC 7.4 RBC 3.30 L D Hgb 9.9 L D Hct 31.5 L D MCV 95.5 MCH 30.0 MCHC 31.4 RDW 13.0 Plt Count 276 MPV 9.4 Immature Gran % (Auto) 0.4 Neut % (Auto) 74.9 H Lymph % (Auto) 13.6 L [place] % (Auto) 9.6 Eos % (Auto) 1.1 Baso % (Auto) 0.4 Lymph # (Auto) 1.0 L [place] # (Auto) 0.7 Eos # (Auto) 0.1 Baso # (Auto) 0.0 Abs Immat Gran (auto) 0.03 Absolute Neuts (auto) 5.5 Absolute Nucleated RBC 0.000 Nucleated RBC % (auto) 0.0 PT 12.2 INR 1.0 Sodium 143 Potassium 4.2 D Chloride 110 H Carbon Dioxide 24 Anion Gap 13 BUN 40 H Creatinine 0.86 Estim Creat Clear Calc 26.9 Estimated GFR > 60 Random Glucose 127 H Calcium 10.1 D Magnesium 2.0 Total Bilirubin 0.5 AST 20 ALT 32 H Alkaline Phosphatase 54 Troponin I High Sens < 2.7 Total Protein 6.4 L Albumin 3.3 L Lipase 27 Urine Color Urine Appearance Urine pH Ur Specific Home Urine Protein Urine Glucose (UA) Urine Ketones Urine Blood Urine Nitrite Ur Leukocyte Esterase Influenza Type A (PCR) NEGATIVE Influenza Type B (PCR) NEGATIVE RSV RNA Qual (PCR) NEGATIVE SARS-CoV-2 RNA (RT-PCR) NEGATIVE Blood Type O Negative Antibody Screen NEGATIVE 05/16/24 05/16/24 05/17/24 15:04 19:13 05:04 WBC 4.9 RBC 3.04 L Hgb 9.1 L Hct 28.4 L MCV 93.4 MCH 29.9 MCHC 32.0 RDW 12.8 Plt Count 250 MPV 9.8 Immature Gran % (Auto) 0.2 Neut % (Auto) 60.4 Lymph % (Auto) 25.4 Love % (Auto) 12.6 H Eos % (Auto) 1.2 Baso % (Auto) 0.2 Lymph # (Auto) 1.3 Love # (Auto) 0.6 Eos # (Auto) 0.1 Baso # (Auto) 0.0 Abs Immat Gran (auto) 0.01 Absolute Neuts (auto) 3.0 Absolute Nucleated RBC 0.000 Nucleated RBC % (auto) 0.0 PT INR Sodium 142 Potassium 3.5 Chloride 112 H Carbon Dioxide 23 Anion Gap 11 L BUN 36 H Creatinine 0.81 Estim Creat Clear Calc 28.6 Estimated GFR > 60 Random Glucose 85 Calcium 9.6 Magnesium Total Bilirubin 0.3 AST 15 ALT 9 Alkaline Phosphatase 52 Troponin I High Sens 3.5 Total Protein 5.7 L Albumin 3.0 L Lipase Urine Color Yellow Urine Appearance Clear Urine pH 5.5 Ur Specific Home 1.025 Urine Protein Negative Urine Glucose (UA) Negative Urine Ketones Negative Urine Blood Negative Urine Nitrite Negative Ur Leukocyte Esterase Negative Influenza Type A (PCR) Influenza Type B (PCR) RSV RNA Qual (PCR) SARS-CoV-2 RNA (RT-PCR) Blood Type Antibody Screen ECG Interpretation: EKG with underlying sinus bradycardia at 57/Min; right bundle-branch block; DE prolongation to 216 millisecond; normal corrected QT. Assessment and Plan (1) Syncope and collapse: Status: Acute Plan Orthostatic vital signs were checked in my presence and it seems her blood pressure is rather going up then coming down with standing. In the recent echocardiogram, LVEF is 65-70%. Mitral annular calcification/aortic calcification. Early mild aortic stenosis. Holter with underlying sinus rhythm with an average rate of 65/Min. Unremarkable high sensitivity troponins. Overall, possibly vasovagal episode brought on by GI symptoms. She is just put on telemetry and we can monitor for 24 hours or so. If indeed we find any arrhythmias/bradycardia of concern, we will at rest. However, less likely and more so vasovagal in nature. Procedures Date of Service Date of Service: 05/17/24
[2024-05-17] MEDS: polyethylene glycoL 3350 17 GM POWD.PACK PO (10:47)
--- NOTE | 2024-05-17 13:17 | P.PNIM_ITS ---
Subjective Subjective Date of Service: 05/17/24 Interval History: no further episodes of syncope or presycnope but has had lightheadedness in past when about to have BM pt's roommate tested positive for influenza A; pt has no respiratory symptoms Review of Systems Review of Systems: Yes all other systems are reviewed and are negative Physical Exam 2 Vital Signs: Vital Signs: Last Vital Signs Temp 98.2 F 05/17/24 12:00 Pulse 53 05/17/24 12:00 Resp 20 05/17/24 12:00 BP 157/68 H 05/17/24 12:00 Pulse Ox 100 05/17/24 12:00 O2 Del Method Room Air 05/17/24 12:00 BMI result Body Mass Index 20.4 Gen: in no acute distress HEENT: sclera anicteric, moist mucus membranes Neck: supple Lungs: clear to auscultation bilaterally Heart: regular rate and rhythm, no murmurs Abd: soft, non-tender, non-distended Ext: no edema Skin: warm/well-perfused Neuro: alert and oriented x3, no focal findings Psych: appropriate affect Objective Data Active Medications Acetaminophen (Acetaminophen 325 Mg Tablet) 650 mg PO Q6H PRN PRN Reason: Pain, Mild 1-3,fever,headache Amlodipine Besylate (Amlodipine Besylate 5 Mg Tablet) 5 mg PO BEDTIME [facility]; Protocol Ascorbic Acid (Ascorbic Acid 500 Mg Tablet) 500 mg PO BID [facility] Last Admin: 05/17/24 09:09 Dose: 500 mg Documented By: RENE Aspirin (Aspirin Enteric Coated 81 Mg Tablet.) 81 mg PO DAILY [facility] Last Admin: 05/17/24 09:08 Dose: 81 mg Documented By: RENE Atorvastatin Calcium (Atorvastatin Calcium 40 Mg Tablet) 40 mg PO BEDTIME [facility] Calcium Carbonate (Calcium Carbonate 750 Mg Tab.Chew) 750 mg PO Q4H PRN PRN Reason: Heartburn Carvedilol (Carvedilol 12.5 Mg Tablet) 12.5 mg PO BID [facility]; Protocol Last Admin: 05/17/24 09:08 Dose: 12.5 mg Documented By: RENE Docusate Sodium (Docusate Sodium 100 Mg Capsule) 100 mg PO BID PRN PRN Reason: Constipation Ezetimibe (Ezetimibe 10 Mg Tablet) 10 mg PO BEDTIME [facility] Enoxaparin Sodium (Enoxaparin Sodium 30 Mg/0.3 Ml Syringe) 30 mg SUBCUT Q24H [facility] Last Admin: 05/16/24 18:58 Dose: 30 mg Documented By: DITOLC Losartan Potassium (Losartan Potassium 50 Mg Tablet) 100 mg PO DAILY [facility]; Protocol Last Admin: 05/17/24 09:08 Dose: 100 mg Documented By: RENE Magnesium Hydroxide (Milk Of Magnesia 30 Ml Oral.Susp) 30 ml PO DAILY PRN PRN Reason: Constipation Melatonin (Melatonin 3 Mg Tablet) 6 mg PO BEDTIME PRN PRN Reason: Insomnia Non-Formulary Medication (Tiotropium Sullivan [Spiriva Respimat]) 2 puff INHALE DAILY [facility] Non-Formulary Medication (Vibegron [Gemtesa]) 75 mg PO DAILY [facility] Omeprazole (Omeprazole 20 Mg Capsule.Dr) 20 mg PO DAILY@0630 [facility] Ondansetron HCl (Ondansetron Hcl 4 Mg/2 Ml Vial) 4 mg IVPUSH Q8H PRN PRN Reason: Nausea and Vomiting Oseltamivir Phosphate (Oseltamivir Phosphate 30 Mg Capsule) 30 mg PO Q48H [facility] Stop: 05/29/24 13:01 Polyethylene Glycol (Polyethylene Glycol 3350 17 Gm Powd.Pack) 17 gm PO DAILY [facility] Last Admin: 05/17/24 10:47 Dose: 17 gm Documented By: RENE Sodium Chloride (0.9 % Sodium Chloride Flush 3 Ml Syringe) 3 ml IVFLUSH QSHIFT [facility] Last Admin: 05/17/24 09:11 Dose: 3 ml Documented By: RENE Labs 05/17/24 05:04 05/17/24 05:04 Labs: Laboratory Results - last 24 hr 05/16/24 05/16/24 05/16/24 13:00 13:01 13:16 MCV MCH MCHC RDW Plt Count MPV Immature Gran % (Auto) Neut % (Auto) Lymph % (Auto) [place] % (Auto) Eos % (Auto) Baso % (Auto) Lymph # (Auto) [place] # (Auto) Eos # (Auto) Baso # (Auto) Abs Immat Gran (auto) Absolute Neuts (auto) Absolute Nucleated RBC Nucleated RBC % (auto) PT 12.2 INR 1.0 Anion Gap 13 Estim Creat Clear Calc 26.9 Estimated GFR > 60 Random Glucose 127 H Calcium 10.1 D Magnesium 2.0 Total Bilirubin 0.5 AST 20 ALT 32 H Alkaline Phosphatase 54 Troponin I High Sens < 2.7 Total Protein 6.4 L Albumin 3.3 L Lipase 27 Urine Color Urine Appearance Urine pH Ur Specific [place] Urine Protein Urine Glucose (UA) Urine Ketones Urine Blood Urine Nitrite Ur Leukocyte Esterase Influenza Type A (PCR) NEGATIVE Influenza Type B (PCR) NEGATIVE RSV RNA Qual (PCR) NEGATIVE SARS-CoV-2 RNA (RT-PCR) NEGATIVE Blood Type O Negative Antibody Screen NEGATIVE 05/16/24 05/16/24 05/17/24 15:04 19:13 05:04 MCV 93.4 MCH 29.9 MCHC 32.0 RDW 12.8 Plt Count 250 MPV 9.8 Immature Gran % (Auto) 0.2 Neut % (Auto) 60.4 Lymph % (Auto) 25.4 [place] % (Auto) 12.6 H Eos % (Auto) 1.2 Baso % (Auto) 0.2 Lymph # (Auto) 1.3 [place] # (Auto) 0.6 Eos # (Auto) 0.1 Baso # (Auto) 0.0 Abs Immat Gran (auto) 0.01 Absolute Neuts (auto) 3.0 Absolute Nucleated RBC 0.000 Nucleated RBC % (auto) 0.0 PT INR Anion Gap 11 L Estim Creat Clear Calc 28.6 Estimated GFR > 60 Random Glucose 85 Calcium 9.6 Magnesium Total Bilirubin 0.3 AST 15 ALT 9 Alkaline Phosphatase 52 Troponin I High Sens 3.5 Total Protein 5.7 L Albumin 3.0 L Lipase Urine Color Yellow Urine Appearance Clear Urine pH 5.5 Ur Specific [place] 1.025 Urine Protein Negative Urine Glucose (UA) Negative Urine Ketones Negative Urine Blood Negative Urine Nitrite Negative Ur Leukocyte Esterase Negative Influenza Type A (PCR) Influenza Type B (PCR) RSV RNA Qual (PCR) SARS-CoV-2 RNA (RT-PCR) Blood Type Antibody Screen Assessment and Plan (1) Syncope: Status: Acute Plan d2 for 89yo F with hx CVA, HTN, COPD presenting after recurrent syncope syncope - likely reflex sycnope related to elimination but given recurrence, obtaining EEG and monitoring on telemetry x24h; Cardiology consult appreciated HTN - continue amlodipine, carvedilol, losartan hx CVA - continue ASA, statin HAI - continue Fe sulfate influenza exposure - prophylactic oseltamivir x7d VTE ppx - enoxaparin dispo - anticipate home tomorrow In my clinical judgment, the patient requires continued inpatient hospitalization for the following reasons: telemetry, syncope workup Total time managing care of this patient today: 35 minutes. Quality Stroke Does the patient have a stroke diagnosis?: No VTE Prior VTE?: No VTE Risk Level:: Medical - moderate - high VTE Device Contraindication: Treatment Not Indicated VTE Drug Contraindication: N/A - Med Ordered
[2024-05-17] MEDS: Oseltamivir Phosphate 30 MG CAPSULE PO (14:06)
[2024-05-17] MEDS: Enoxaparin Sodium 30 MG/0.3 ML SYRINGE SUBCUT (17:45)
[2024-05-17] MEDS: Atorvastatin Calcium 40 MG TABLET PO (20:13)
[2024-05-17] MEDS: amLODIPine Besylate 5 MG TABLET PO (20:13)
[2024-05-17] MEDS: Ezetimibe 10 MG TABLET PO (20:14)
[2024-05-18] VITALS (8 sets, daily range): BP systolic 108–169; BP diastolic 50–70; PULSE 57–60; RESP 15–20; TEMP 36.3–37.5; O2SAT 95–98
[2024-05-18] MEDS: Omeprazole 20 MG CAPSULE.DR PO (06:30)
[2024-05-18] MEDS: carvediloL 12.5 MG TABLET PO (09:09)
[2024-05-18] MEDS: 0.9 % Sodium Chloride Flush 3 ML SYRINGE IVFLUSH (09:10)
[2024-05-18] MEDS: Ascorbic Acid 500 MG TABLET PO (09:10)
[2024-05-18] MEDS: Aspirin Enteric Coated 81 MG TABLET.DR PO (09:10)
[2024-05-18] MEDS: Losartan Potassium 50 MG TABLET 100 MG PO (09:10)
[2024-05-18] MEDS: polyethylene glycoL 3350 17 GM POWD.PACK PO (09:10)
--- NOTE | 2024-05-18 09:56 | PM.PNCARD ---
Subjective Subjective Date of Service: 05/18/24 Interval history: Seen in follow-up regarding syncope. This a.m., she apparently had some abdominal distress and after that, had a brief spell of dizziness but during that time, vitals were within normal limits and telemetry did not show any arrhythmias. No significant bradycardia. Now she is back to normal self again. Review of Systems Review of Systems Yes all other systems are reviewed and are negative Constitutional: Reports as per HPI and Reports no additional constitutional complaints Eyes: Reports as per HPI and Denies no additional eye complaints Denies system reviewed and no additional complaints, except as documented and Reports as per HPI Cardiovascular: Reports as per HPI, Reports no additional cardiovascular complaints, Denies acrocyanosis, Denies cool extremities, Denies chest pain, Denies leg edema, Denies lightheadedness, Denies palpitations and Denies dyspnea Respiratory: Reports as per HPI, Denies no additional respiratory complaints and Denies dyspnea Gastrointestinal: Reports as per HPI and Denies no additional gastrointestinal complaints Genitourinary: Reports as per HPI Musculoskeletal: Reports no additional musculoskeletal complaints and Reports as per HPI Skin/Breast: Reports system reviewed and no additional complaints, except as docu Reports system reviewed and no additional complaints, except as documented and Reports as per HPI Psychiatric: Reports no additional psychiatric complaints and Reports as per HPI Endocrine: Reports no additional endocrine complaints, Reports as per HPI and Denies palpitations Hematologic/Lymphatic: Reports no additional hematologic/lymphatic complaints and Reports as per HPI Allergic/Immunologic: Reports no additional allergic/immunologic complaints and Reports as per HPI Physical Exam Vital Signs: Last Vital Signs Temp 98.1 F 05/18/24 07:17 Pulse 60 05/18/24 09:09 Resp 18 05/18/24 07:17 BP 134/59 L 05/18/24 09:10 Pulse Ox 95 05/18/24 07:17 O2 Del Method Room Air 05/18/24 07:17 BMI result Body Mass Index 20.4 Const General: comfortable and no acute distress Orientation/consciousness: patient oriented x3 HEENT Other: Unremarkable Head: Yes normal to inspection Neck Neck: Yes normal visual inspection Chest Chest palpation & inspection: normal inspection of the chest Resp Auscultation: clear to auscultation bilaterally Cardio Palpation: normal PMI Heart sounds: S1 normal heart sound present, S2 normal heart sound present, no gallops, no murmurs and no rubs GI Palpation (GI): Soft to palpation Back/Spine/Pelvis Other: unremarkable Skin General skin exam: no rashes or lesions noted Neuro General: patient oriented x3 Extrem General: Yes normal to inspection Psych Mental Status: mental status grossly normal Objective Labs and Meds 05/17/24 05:04 05/17/24 05:04 Progress Note: A&P Assessment and plan (1) Syncope and collapse: Status: Acute Plan Orthostatic vital signs were checked in my presence and it seems her blood pressure is rather going up then coming down with standing. In the recent echocardiogram, LVEF is 65-70%. Mitral annular calcification/aortic calcification. Early mild aortic stenosis. Holter with underlying sinus rhythm with an average rate of 65/Min. Unremarkable high sensitivity troponins. While in the patient's room today, she had reported some GI distress accompanied by dizziness type symptoms again but unremarkable telemetry during that episode and against stable blood pressure. Overall, seems like a vagal type episode that seems to be brought on by GI symptoms. On telemetry, she has in sinus rhythm in the high 50s but no profound bradycardia or AV block. We could possibly consider going down on the beta-blockers but that may or may not help. Otherwise, adequate hydration. D/W . Time Spent With Patient Time: Total time managing care of this patient today ____ minutes. Progress Note: Quality Stroke Does the patient have a stroke diagnosis?: No Procedures Date of Service Date of Service: 05/18/24
[2024-05-18 10:10] LABS: Hematocrit 27.2 % (37.0-47.0)
--- NOTE | 2024-05-18 14:39 | P.F2F_ITS ---
Service Date Service Date: 05/18/24 Encounter Date of encounter: 05/18/24 Reasons for Services Signs and symptoms assessed: balance, gait Reason for physical therapy: home safety and mobility, therapeutic exercises, gait/transfer training, assess need for DME, ADL training and energy conservation MD Overseeing Care: Shirin Duron Homebound: Leaving the home is medically contraindicated at this time without the asist of a device and/or another person due th the listed conditions above and below. Reason homebound: unsteady gait / fall risk Certification: Based on the above findings, I certify that this patient is confined to the home and needs intermittent half-way care, physical therapy and/or speech therapy, or continues to need occupational therapy. The patient is under my care, and I have initiated the establishment of the plan of care. The patient will be followed by a physician who will periodically review the plan of care. Time Spent With Patient Time: Total time managing care of this patient today ____ minutes.
--- NOTE | 2024-05-18 14:43 | P.DS_ITS ---
DS: Providers Provider Date of Service: 05/18/24 Date of admission: 05/16/24 17:26 Date of discharge: 05/18/24 Primary care physician: Shirin Duron MD Consults: 05/17/24 07:53 Consult to Cardiology Routine Consulting Provider: [facility] Reason for consultation: syncope DS: Diagnosis Discharge Diagnosis (1) Syncope and collapse: Status: Acute (2) Exposure to influenza: Status: Acute DS: Summary Hospital Course Hospital Course: From the history and physical by the admitting hospitalist, Reyes Jacobs DO, 05/16/24: 89-year-old female who presents emergency department for evaluation. Reports that she was sitting in the pew at [employer] when she suddenly began to feel lightheaded and felt a strong urge to have a bowel movement. Reports that she was at [employer] with her sister. Does not appear to know who may have called EMS or how she got onto EMS stretcher. At this time she reports that the lighth eadedness has subsided. She still has a mild urge to pass a bowel movement. She does state that she receives monthly blood transfusions due to anemia, states she was last transfused on 05/06/2024, but reports it is not always typical to have lightheadedness when she is having significant anemia. She states shortly before this happened she felt like she had to move her bowels and was slightly nauseous and then remembers nothing until ambulance arrived. In the emergency room workup essentially unremarkable 89yo F with hx CVA, HTN, and COPD presenting after recurrent syncope. Admitted to the telemetry unit with cardiac monitoring and Cardiology consultation. No arrhythmias. No orthostasis. Recent echocardiogram with early/mild aortic stenosis, LVEF 65-70%. Holter with underlying sinus rhythm with average rate 65/min. EEG was normal. Likely reflex syncope related to elimination. But recommended decreasing carvedilol from 12.5 to 6.25 mg twice daily; also discontinued chlorthalidone. She was discharged home with VNA services. To consider outpatient GI consultation. Counseled to avoid constipation and prescribed Miralax for treatment of any constipation as needed. Her roommate tested positive for influenza, so she was started on a course of oseltamivir for prophylaxis. Time Attestation Discharge Coordination Time (in mins): 40 Quality: Safe Use of Opioids Does Pt have an Active Cancer Diagnosis on the Problem List?: No Quality: Stroke Does the patient have a stroke diagnosis?: No Physical Exam Vital Signs: Vital Signs: Last Vital Signs Temp 98.9 F 05/18/24 11:01 Pulse 57 05/18/24 11:01 Resp 18 05/18/24 11:01 BP 123/57 L 05/18/24 11:01 Pulse Ox 98 05/18/24 11:01 O2 Del Method Room Air 05/18/24 11:01 BMI result Body Mass Index 20.4 Gen: in no acute distress HEENT: sclera anicteric, moist mucus membranes Neck: supple Lungs: clear to auscultation bilaterally Heart: regular rate and rhythm, no murmurs Abd: soft, non-tender, non-distended Ext: no edema Skin: warm/well-perfused Neuro: alert and oriented x3, no focal findings Psych: appropriate affect DS: Data Data Completed and Pending Completed studies during hospitalization [Text1]: Laboratory Results WBC 4.9 X10*3/uL (4.8-10.8) 05/17/24 05:04 RBC 3.04 X10*6/uL (4.20-5.50) L 05/17/24 05:04 Hgb 9.0 g/dl (12.0-16.0) L 05/18/24 09:56 Hct 27.2 % (37.0-47.0) L 05/18/24 09:56 MCV 93.4 fL (80.0-98.0) 05/17/24 05:04 MCH 29.9 pg (27.0-33.0) 05/17/24 05:04 MCHC 32.0 g/dl (31.0-35.0) 05/17/24 05:04 RDW 12.8 % (11.0-16.0) 05/17/24 05:04 Plt Count 250 X10*3/uL (160-400) 05/17/24 05:04 MPV 9.8 fL (9.4-12.3) 05/17/24 05:04 Immature Gran % (Auto) 0.2 % (0.0-0.4) 05/17/24 05:04 Neut % (Auto) 60.4 % (45-73) 05/17/24 05:04 Lymph % (Auto) 25.4 % (20-40) 05/17/24 05:04 [place] % (Auto) 12.6 % (2-11) H 05/17/24 05:04 Eos % (Auto) 1.2 % (0-4) 05/17/24 05:04 Baso % (Auto) 0.2 % (0-2) 05/17/24 05:04 Lymph # (Auto) 1.3 X10*3/uL (1.2-4.9) 05/17/24 05:04 [place] # (Auto) 0.6 X10*3/uL (0.1-1.2) 05/17/24 05:04 Eos # (Auto) 0.1 X10*3/uL (0.0-0.4) 05/17/24 05:04 Baso # (Auto) 0.0 X10*3/uL (0.0-0.2) 05/17/24 05:04 Abs Immat Gran (auto) 0.01 X10*3/uL (0.00-0.03) 05/17/24 05:04 Absolute Neuts (auto) 3.0 x10*3/uL (2.0-8.3) 05/17/24 05:04 Absolute Nucleated RBC 0.000 X10*3/uL (0.0-0.012) 05/17/24 05:04 Nucleated RBC % (auto) 0.0 /100WBC (0.0-0.2) 05/17/24 05:04 PT 12.2 SEC (10.9-12.4) 05/16/24 13:00 INR 1.0 (0.9-1.1) 05/16/24 13:00 Sodium 142 mmol/L (135-145) 05/17/24 05:04 Potassium 3.5 mmol/L (3.3-5.1) 05/17/24 05:04 Chloride 112 mmol/L (96-108) H 05/17/24 05:04 Carbon Dioxide 23 mmol/L (22-29) 05/17/24 05:04 Anion Gap 11 (12-20) L 05/17/24 05:04 BUN 36 mg/dL (9-16) H 05/17/24 05:04 Creatinine 0.81 mg/dL (0.5-1.4) 05/17/24 05:04 Estim Creat Clear Calc 28.6 05/17/24 05:04 Estimated GFR > 60 05/17/24 05:04 Random Glucose 85 mg/dL (60-115) 05/17/24 05:04 Calcium 9.6 mg/dL (8.4-10.2) 05/17/24 05:04 Magnesium 2.0 mg/dL (1.6-2.6) 05/16/24 13:00 Total Bilirubin 0.3 mg/dL (0.0-1.0) 05/17/24 05:04 AST 15 U/L (5-31) 05/17/24 05:04 ALT 9 U/L (0-31) 05/17/24 05:04 Alkaline Phosphatase 52 U/L (39-117) 05/17/24 05:04 Troponin I High Sens 3.5 ng/L (<3.5-17.0) 05/16/24 15:04 Total Protein 5.7 g/dL (6.5-8.0) L 05/17/24 05:04 Albumin 3.0 g/dL (3.5-5.0) L 05/17/24 05:04 Lipase 27 U/L (8-78) 05/16/24 13:00 Urine Color Yellow 05/16/24 19:13 Urine Appearance Clear 05/16/24 19:13 Urine pH 5.5 (5.0-9.0) 05/16/24 19:13 Ur Specific [place] 1.025 (1.005-1.025) 05/16/24 19:13 Urine Protein Negative mg/dL (Neg-Trace) 05/16/24 19:13 Urine Glucose (UA) Negative mg/dL (Negative) 05/16/24 19:13 Urine Ketones Negative mg/dL (Negative) 05/16/24 19:13 Urine Blood Negative (Negative) 05/16/24 19:13 Urine Nitrite Negative (Negative) 05/16/24 19:13 Ur Leukocyte Esterase Negative (Negative) 05/16/24 19:13 Influenza Type A (PCR) NEGATIVE (Negative) 05/16/24 13:01 Influenza Type B (PCR) NEGATIVE (Negative) 05/16/24 13:01 RSV RNA Qual (PCR) NEGATIVE (Negative) 05/16/24 13:01 SARS-CoV-2 RNA (RT-PCR) NEGATIVE (Negative) 05/16/24 13:01 Blood Type O Negative 05/16/24 13:16 Antibody Screen NEGATIVE 05/16/24 13:16 05/16/24 CTA H/N Head CT without: 1. No acute intracranial hemorrhage. 2. No large arterial territorial infarction. CTA head: 1. No ICA or M1 occlusion. 2. The basilar artery is patent CTA of the head and neck: 1. No significant stenosis of the either internal carotid artery by NASCET criteria. 2. The left vertebral artery is dominant. Discharge Plan Discharge Patient Disposition: Home Health Service Discharge Diagnosis: syncope, likely reflex Referrals: [facility] [Provider Group] - 2 Weeks [facility] [Outside] - 3-5 Days Shirin Magana MD [Primary Care Provider] - 1 Week Discharge Medications: New oseltamivir 30 mg Capsule 30 mg PO Q48H Qty: 3 0RF carvedilol 6.25 mg tablet 6.25 mg PO BID Qty: 60 0RF Rx Instructions: replaces prior dose of 12.5mg bid polyethylene glycol 3350 17 gram Powder In Packet 17 g PO DAILY PRN (Reason: constipation) Qty: 30 0RF Continued (DME) gemini Recinos See Rx Instructions .Route Qty: 1 0RF Rx Instructions: Luis singletary lansoprazole 30 mg capsule,delayed release(DR/EC) 30 mg PO DAILY@0630 Qty: 90 3RF Spiriva Respimat 1.25 mcg/actuation mist 2 puff inhalation DAILY Qty: 12 3RF rosuvastatin 10 mg tablet 10 mg PO BEDTIME Qty: 90 0RF Slow Fe 137 mg (45 mg iron) Tablet Extended Release 137 mg PO BID Qty: 60 3RF acetaminophen [Tylenol Arthritis Pain] 650 mg tablet extended release 1,300 mg PO Q6H PRN (Reason: Pain (Scale Score 1-3)) ezetimibe 10 mg tablet 10 mg PO BEDTIME amlodipine 5 mg tablet 5 mg PO BEDTIME 90 Days Qty: 90 1RF ascorbic acid (vitamin C) [Vitamin C] 500 mg Tablet 500 mg PO BID docusate sodium [Colace] 100 mg capsule 100 mg PO BID PRN (Reason: Constipation) losartan 100 mg tablet 100 mg PO DAILY aspirin [Adult Aspirin Regimen] 81 mg tablet,delayed release (DR/EC) 81 mg PO DAILY Gemtesa 75 mg tablet 75 mg PO DAILY 90 Days Qty: 90 3RF Discontinued chlorthalidone 25 mg tablet 25 mg PO DAILY 90 Days Qty: 90 2RF carvedilol 12.5 mg tablet 12.5 mg PO BID Qty: 180 4RF Discharge Orders: Discharge Order (Routine); Ordered 05/18/24 Ordered By: Rinku Byrd Diet: Advance to usual diet Activity on Discharge: As tolerated Stand Alone Forms: Patient Portal Discharge page Print Language: French Care Plan Goals: prevention of syncope Health Concerns: syncope, likely reflex Plan of Treatment: stop chlorthalidone; reduce carvedilol from 12.5 mg twice daily to 6.25 mg twice daily due to exposure to patient with influenza, take oseltamivir 30 mg every other day for 3 more doses consider outpatient Gastroenterology consultation. avoid constipation and use Miralax as needed Please follow up with your primary care doctor within 1 week. Return to the hospital if you experience recurrent or worsening symptoms. Assessment: See Discharge Summary. Discharge Date/Time: 05/18/24 16:57
== END 2024-05-18 16:57 | disposition home health service (06) ==
LOC: HO.ED 12:50 → HO.EDOVER 17:34 → HO.IMC 05-17 07:46
PROVIDERS: Nurse Practitioner Family; Admitting Provider Hospitalist; Emergency Provider Emergency Medicine; PCP Internal Medicine; Visit Provider Family Medicine
DX: I44.0 Atrioventricular block, first degree (principal); R42 Dizziness and giddiness; I10 Essential (primary) hypertension; E78.5 Hyperlipidemia, unspecified; J44.9 Chronic obstructive pulmonary disease, unspecified; R26.81 Unsteadiness on feet; D50.9 Iron deficiency anemia, unspecified; Z86.73 Personal history of transient ischemic attack (TIA), and cerebral infarction without residual deficits; Z03.818 Encounter for observation for suspected exposure to other biological agents ruled out; Z79.899 Other long term (current) drug therapy
CPT/HCPCS: 0241U; 36415; 70496; 70498; 80053; 81003; 83690; 83735; 84484; 85014; 85018; 85025; 85610; 86850; 86900; 86901; 93005; 95816; 96372; 97162; 99222; 99285; J1650; Q9967

== ENCOUNTER 2024-05-16 17:26 | Outpatient (BNV) | payer MEDICARE, OTHER, SELFPAY | END 2024-05-16 18:25 | PROVIDERS: Admitting Provider Hospitalist; Emergency Provider Emergency Medicine; PCP Internal Medicine; Visit Provider Radiology Neuroradiology | DX: R55 Syncope and collapse (principal) | CPT/HCPCS: 70496; 70498 ==

== ENCOUNTER → 2024-05-16 17:26 | Outpatient (BNV) | payer MEDICARE, OTHER, SELFPAY | PROVIDERS: Admitting Provider Hospitalist; Emergency Provider Emergency Medicine; PCP Internal Medicine; Visit Provider Hospitalist | DX: R55 Syncope and collapse (principal) | CPT/HCPCS: 99232; 99239 ==

== ENCOUNTER → 2024-05-16 17:26 | Outpatient (BNV) | payer MEDICARE, OTHER, SELFPAY | PROVIDERS: Admitting Provider Hospitalist; Emergency Provider Emergency Medicine; PCP Internal Medicine; Visit Provider Internal Medicine | DX: R55 Syncope and collapse (principal) | CPT/HCPCS: 93010; 99223; 99232 ==

== ENCOUNTER 2024-05-28 13:56 | Outpatient (AMB) | payer MEDICARE, OTHER, SELFPAY ==
--- NOTE | 2024-05-28 14:02 | MHC.PC.OV ---
Vital Signs 05/28/24 14:07 Height 4 ft 9 in Weight 95 lb 8 oz BMI 20.7 BP 144/50 H Blood Pressure Location Lt brachial Position Sitting Pulse 67 Pulse Source Pulse Oximeter Temp 96.9 F Temp Source Temporal Artery Scan Pulse Oximetry (%) 99 Oxygen Delivery Method Room Air Intake Visit Reasons: [facility] 05/18 Syncope A R Collections Rep Required: No Accompanied by: Self / Same As Patient Allergies cephalexin [Keflex] Allergy (Intermediate, Verified 05/28/24 14:11) Unknown tetracycline [Tetracycline] Allergy (Intermediate, Verified 05/28/24 14:11) TONGUE SWOLLEN Tobacco use date assessed: 04/29/24 Fall risk assessment: 1 Fall in past year Last assessed Fall Risk: 05/28/24 Dental Screening Dental Screen Date: 04/29/24 HPI TCM TCM Information Date of Discharge 05/18/24 Discharged From [facility] Interactive Contact Date (Reference documentation from this date) 05/19/24 HPI Comments History of Present Illness Details 89 y/o female patient who presents to the clinic for HDF. Her Past medical Hx significant for CVA, HTN, and COPD. She was admitted at [facility] on 05/16/24 and discharged home on 05/18/24 due to Syncope associated by Influenza exposure from a friend. Prior to the episode, she felt the urge to defecate - h/o constipation due to Iron supplements. Syncope due to vasal vagal reaction triggered by Bowel straining. Head CT without: 1. No acute intracranial hemorrhage. 2. No large arterial territorial infarction. CTA head: 1. No ICA or M1 occlusion. 2. The basilar artery is patent CTA of the head and neck: 1. No significant stenosis of the either internal carotid artery by NASCET criteria. 2. The left vertebral artery is dominant. [facility] Medical History Hospital discharge follow-up Acute leg pain Facial paresthesia Swelling of lower extremity Right leg swelling Hypertensive urgency Constipation Frequent UTI Edema of left lower leg Leg cramping Primary hypertension Uncontrolled hypertension Left hip pain Left-sided weakness Left sided sciatica Adult general medical exam Screening for breast cancer Osteoarthritis of right hip Hospital discharge follow-up Vitamin D deficiency Hypercalcemia Multiple lacunar infarcts Hearing loss Urge urinary incontinence GERD (gastroesophageal reflux disease) COPD (chronic obstructive pulmonary disease) Hypertension Dyslipidemia Hypercalcemia Osteoporosis History of ductal carcinoma in situ (DCIS) of breast Surgical History History of right hip replacement History of colonoscopy History of lumpectomy of right breast History of pubovaginal sling H/O right inguinal hernia repair Family History Father Heart failure CVD (cardiovascular disease) Mother Breast cancer Social History Household Members: None Household Members Other:: alone Housing: House Do you presently have visiting nurse or other home services: No Alcohol intake: former Patient Tobacco Use Status: Former Tobacco user Tobacco use type: Cigarette e-Cigarette/Vaping Use: Never Used Second Hand Smoke Exposure: No Advance Directives Date on File: 10/19/21 service: No Current occupational status: retired Cognitive needs: Yes (CANE) Hearing needs: Yes (hearing aide) Vision needs: No (glaases) Questionnaire Thrive Questionnaire Date Thrive assessed: 05/17/24 LEMUEL-7 AMB Questionnaire LEMUEL-7 Date LEMUEL - 7 assessed: 04/29/24 Source: Developed by Drs. Lewis Lopez, Dixie Sharma, Clay Stevenson and colleagues, with an educational chucky from [employer]. Review of Systems Const All systems reviewed & are unremarkable except as noted in HPI and below Physical exam (Primary Care) Vital Signs: Last Vital Signs Temp 96.9 F 05/28/24 14:07 Pulse 67 05/28/24 14:07 BP 144/50 H 05/28/24 14:07 Pulse Ox 99 05/28/24 14:07 Oxygen Delivery Method Room Air 05/28/24 14:07 BMI result Body Mass Index 20.7 Tobacco/Smoking Status: Tobacco use Status Tobacco use date assessed 04/29/24 05/28/24 14:03 Patient Tobacco Use Status Former Tobacco user 05/28/24 14:03 Tobacco use type Cigarette 05/28/24 14:03 e-Cigarette/Vaping Use Never Used 05/28/24 14:03 Thrive Assessment: Date of Thrive Assessment Date Thrive assessed 05/17/24 05/28/24 14:03 Const General: no acute distress Orientation/consciousness: patient oriented x3 Resp Effort & Inspection: normal respiratory effort and able to speak in complete sentences Auscultation: clear to auscultation bilaterally, no crackles, no rales, no rhonchi and no wheezes Cardio Heart sounds: S1 normal heart sound present and S2 normal heart sound present Neuro General: patient oriented x3 Coding Level of Care Code Est Pt Level 4 (30664) Diagnoses Syncope, unspecified syncope type R55 Syncope type: unspecified Exposure to influenza Z20.828 Time Spent (min) 20 Assessment & Plan Assessment & Plan (1) Syncope: Code(s): R55 - Syncope and collapse Qualifiers: Syncope type: unspecified Qualified Code(s): R55 - Syncope and collapse Plan: Avoid activities that may trigger a Vagal reaction. F/U with PCP. (2) Exposure to influenza: Code(s): Z20.828 - Contact with and (suspected) exposure to other viral communicable diseases Category: Medical Plan: Pt was treated with Tamiflu. Denied URI symptoms.
== END 2024-05-28 14:44 | disposition home or self-care (01) ==
PROVIDERS: PCP Internal Medicine; Visit Provider Nurse Practitioner Family
DX: R55 Syncope and collapse (principal); Z20.828 Contact with and (suspected) exposure to other viral communicable diseases

== ENCOUNTER → 2024-05-28 13:56 | Outpatient (BNVA) | DX: R55 Syncope and collapse (principal); Z20.828 Contact with and (suspected) exposure to other viral communicable diseases | CPT/HCPCS: 99212 ==

== ENCOUNTER 2024-06-15 11:27 | Outpatient (AMB) | payer MEDICARE, OTHER, SELFPAY ==
[2024-06-15 11:38] VITALS: BP 144/50; PULSE 60; O2SAT 96
--- NOTE | 2024-06-15 11:38 | MHC.OFFVIS ---
Vital Signs 06/15/24 11:38 Weight 100 lb 1.438 oz BP 144/50 H Blood Pressure Location Lt brachial Position Sitting Pulse 60 Pulse Source Pulse Oximeter Pulse Oximetry (%) 96 Oxygen Delivery Method Room Air Intake Visit Reasons: f/u osteoporosis / prolia injection Intake Note: Patient present today for Osteoporosis follow up visit and prolia injection. Grief Counselor Required: No Accompanied by: Self / Same As Patient Allergies cephalexin [Keflex] Allergy (Intermediate, Verified 06/15/24 11:45) Unknown tetracycline [Tetracycline] Allergy (Intermediate, Verified 06/15/24 11:45) TONGUE SWOLLEN HPI Comments Details: 89 YO Female with PMHx Osteoporosis is seen in F/U for the same. She was previously followed by Dr. Che and then Dr. Khan. She has a longstanding history of hypercalcemia. It is unclear if a diagnosis of hyperparathyroidism was ever established. . She has been receiving Prolia injections intermittently since 2015. Her most recent Prolia was 05/23/2022. She tolerated this well. First diagnosed with Osteoporosis in 2007. Received treatment in the past with Fosamax for approximately 5 years. She tolerated this well, but it was stopped and she was given a drug holiday. She then began Prolia with Dr. Che, and had her first injection 11/22/2015. Dosing appears to have been intermittent since then, and it is unclear how many doses she has received. Her last dose was 05/2023 No history of pathologic fracture or ONJ. Has 1 servings of dietary calcium per day in the form of yogurt. She does not take a Calcium or Vitamin D supplement. Denies ever using PPI, anticoagulant, antiepileptic or glucocorticoid medication. Does no scheduled exercise. 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 Menses were regular. . Menopause was age 50. She did not use HRT. Denies history of Kidney stones: Family history of Osteoporosis in her Mother. UTD on dental cleanings and sees dentist every 6 months. She had a root canal approximately 3 months ago. DXA: 07/10/21 FINDINGS: AP SPINE L1-L4: Current: BMD 0.822 g/cm2, Z-score -0.6, T-score -3.0, osteoporosis, 3.8% increase from previous, 7.2% increase from baseline (<5% change is not significant). Prior: BMD 0.792 g/cm2. Baseline: BMD 0.767 g/cm2. LEFT FEMUR, NECK: Current: BMD 0.780 g/cm2, Z-score 0.9, T-score -1.9, osteopenia. Prior: BMD 0.713 g/cm2. Baseline: BMD 0.756 g/cm2. LEFT FEMUR, TOTAL: Current: BMD 0.813 g/cm2, Z-score 1.1, T-score -1.5, osteopenia, 12.0% increase from previous, 3.7% increase from baseline (<5% change is not significant). Prior: BMD 0.726 g/cm2. Baseline: BMD 0.784 g/cm2. LEFT FOREARM RADIUS 33%: Current: BMD 0.691 g/cm2, Z-score 1.2, T-score -2.1, osteopenia, 1.6% increase from baseline (<5% change is not significant). Baseline: BMD 0.680 g/cm2. Labs: Laboratory Tests 11/06/22 11/06/22 08:38 08:38 Creatinine 0.77 Estimated GFR > 60 25-OH Vitamin D Total 41.2 PTH Intact 55 Calcium (PTH Intact) 9.4 Not fragility fx since last visit . Still receiving Prolia Last DEXA 09/2023 FINDINGS: AP SPINE L1-L4: Current: BMD 0.858 g/cm2, Z-score -0.3, T-score -2.7, osteoporosis, 4.4% increase from previous, 11.9% increase from baseline (<5% change is not significant). Prior: BMD 0.822 g/cm2. Baseline: BMD 0.767 g/cm2. LEFT FOREARM RADIUS 33%: BMD 0.623 g/cm2, Z-score 0.6, T-score -2.9, osteoporosis, 9.8% decrease from previous, 8.4% decrease from baseline (<5% change is not significant). Prior: BMD 0.691 g/cm2. Baseline 06/29/2013: BMD 0.680 g/cm2. LEFT FEMUR, NECK: Current: BMD 0.741 g/cm2, Z-score 0.7, T-score -2.1, osteopenia. Prior: BMD 0.780 g/cm2. Baseline: BMD 0.756 g/cm2. LEFT FEMUR, TOTAL: Current: BMD 0.783 g/cm2, Z-score 1.0, T-score -1.8, osteopenia, 3.7% decrease from previous, 0.1% decrease from baseline (<5% change is not significant). Prior: BMD 0.813 g/cm2. Baseline: BMD 0.784 g/cm2. No fx since last visit . Due for aTmiko [facility] Medical History Hospital discharge follow-up Acute leg pain Facial paresthesia Swelling of lower extremity Right leg swelling Hypertensive urgency Constipation Frequent UTI Edema of left lower leg Leg cramping Primary hypertension Uncontrolled hypertension Left hip pain Left-sided weakness Left sided sciatica Adult general medical exam Screening for breast cancer Osteoarthritis of right hip Hospital discharge follow-up Vitamin D deficiency Hypercalcemia Multiple lacunar infarcts Hearing loss Urge urinary incontinence GERD (gastroesophageal reflux disease) COPD (chronic obstructive pulmonary disease) Hypertension Dyslipidemia Hypercalcemia Osteoporosis History of ductal carcinoma in situ (DCIS) of breast Surgical History History of right hip replacement History of colonoscopy History of lumpectomy of right breast History of pubovaginal sling H/O right inguinal hernia repair Family History Father Heart failure CVD (cardiovascular disease) Mother Breast cancer Social History Household Members: None Household Members Other:: alone Housing: House Do you presently have visiting nurse or other home services: No Alcohol intake: former Patient Tobacco Use Status: Former Tobacco user Tobacco use type: Cigarette e-Cigarette/Vaping Use: Never Used Second Hand Smoke Exposure: No Advance Directives Date on File: 10/19/21 service: No Current occupational status: retired Cognitive needs: Yes (CANE) Hearing needs: Yes (hearing aide) Vision needs: No (glaases) Assessment & Plan Assessment & Plan (1) Osteoporosis: Code(s): M81.0 - Age-related osteoporosis without current pathological fracture Category: Medical Qualifiers: Osteoporosis type: age-related Presence of current pathological fracture: without current pathological fracture Qualified Code(s): M81.0 - Age-related osteoporosis without current pathological fracture Plan: This is a 89-year-old white female with a history of osteoporosis with secondary workup revealing? Primary hyperparathyroidism which is now resolved. She was treated with a bisphosphonate namely alendronate for 5 years and then transition to Prolia which she has received for 8 years. Recent DEXA showed stability in the bone density Plan is to continue the Prolia injections. We did discuss the idea of transitioning to alendronate 1 year's time versus continuing the Prolia and the patient has decided to continue the Prolia for full 10 years course for another 1 1/2 -2 yrs Coding Level of Care Code Est Pt Level 3 (35898) Diagnoses Age-related osteoporosis without current pathological fracture M81.0 Osteoporosis type: age-related Presence of current pathological fracture: without current pathological fracture
--- OUTSIDE RECORDS SUMMARY | 2024-06-15 14:05 | XMS_ITS | Clinical Summary ---
Author Organization [facility] Address [address] [place] [address] Care Team Providers Care Chemist Helper Name Role Phone Yamil Meraz MD Primary Care Provider Unavaila ble Allergies Active Allergy Reactions Criticality Noted Date Comments Cephalexin 06/27/2021 Other reaction(s): unknoiwn Lobster 09/05/2023 Tetracyclines & Related 09/05/2023 Other reaction(s): unknown Medications Medication Sig Dispensed Refills Start Date End Date Status carvedilol (COREG) 12.5 MG tablet Take 1 tablet (12.5 mg total) by mouth 2 (two) times a day. 0 06/09/2023 Active lansoprazole (PREVACID) 30 MG capsule 0 06/16/2023 Active Vibegron (Gemtesa) 75 MG TABS Take 75 mg by mouth. 0 07/31/2023 Active chlorthalidone (HYGROTON) 25 MG tablet Take 1 tablet (25 mg total) by mouth. 0 07/31/2023 Active Tiotropium [place] Monohydrate (Spiriva Respimat) 1.25 MCG/ACT AERS Inhale 2.5 mcg into the lungs. 0 07/31/2023 Active losartan (COZAAR) 100 MG tablet Take 1 tablet (100 mg total) by mouth. 0 07/31/2023 Active ezetimibe (ZETIA) tablet 10 mg Take 1 tablet (10 mg total) by mouth. 0 03/01/2021 Active rosuvastatin (CRESTOR) tablet 10 mg Take 1 tablet (10 mg total) by mouth. 0 07/31/2023 Active Docusate Sodium (COLACE PO) Take 100 mg by mouth daily as needed. 0 08/22/2023 Active acetaminophen (TYLENOL) 325 MG tablet Take 2 tablets (650 mg total) by mouth. 0 08/22/2023 Active polyethylene glycol (MIRALAX) 17 g packet Take 17 g by mouth. 0 08/22/2023 Active Aspirin 81 MG CAPS Take 81 mg by mouth. 0 08/21/2023 Active amLODIPine (NORVASC) tablet 5 mg Take 1 tablet (5 mg total) by mouth. 0 09/15/2022 Active Social History Tobacco Use Types Packs/Day Years Used Date Smoking Tobacco: Never Assessed Sex and Gender Information Value Date Recorded Sex Assigned at Female 09/05/2023 8:31 AM EDT Gender Identity Not on file Sexual Orientation Not on file Job Start Date Occupation Industry Not on file Not on file Not on file Last Filed Vital Signs Vital Sign Reading Time Taken Comments Blood Pressure 142/39 09/05/2023 11:53 AM EDT Pulse 65 09/05/2023 11:53 AM EDT Temperature 37.4 ??C (99.3 ??F) 09/05/2023 11:53 AM E DT Respiratory Rate 16 09/05/2023 11:53 AM EDT Oxygen Saturation - - Inhaled Oxygen Concentration - - Weight - - Height - - Body Mass Index - - Plan of Treatment Health Maintenance Due Date Last Done Comments Depression Screening 1947 Preventative Health Evaluation 1953 DTap / Tdap / Td (1 - Tdap) 1954 Shingrix-Zoster Vaccine (1 of 2) 1985 Fall Risk Assessment 2000 Osteoporosis Screening (DEXA Scan) 2000 Pneumococcal Vaccine (1 of 1 - PCV) 2000 RSV Adult > 60+ Yrs or Pregn ant (1 - 1-dose 75+ series) 2010 COVID-19 Vaccine (2 - 2023-2 5 season) 2023 06/16/2020 Influenza Vaccine (#1) 2023 Hepatitis B Vaccines Aged Out No long er eligible based on patient's age to complete this topic RSV Ped < 20 months Aged Out No longe r eligible based on patient's age to complete this topic Care Teams Chemist Helper Relationship Specialty Start Date End Date Yamil Meraz MD PCP - General Internal Medicine 09/04/23
--- OUTSIDE RECORDS SUMMARY | 2024-06-15 14:05 | XMS_ITS | Clinical Summary ---
Author Organization [facility] Address [address] [place] [address] [place] [address] Phone Care Team Providers Care Preform Machine Operator Name Role Phone Shirin Magana MD Primary Care Provider [phone] Allergies Active Allergy Reactions Criticality Noted Date Comments Cephalexin 06/27/2021 Tetracycline 06/27/2021 Medications * This document contains information received from the source organization and may not represent a complete record from that organization. losartan (COZAAR) 100 MG tablet Take 100 mg by mouth 1 (one) time each day Active tolterodine LA (DETROL LA) 4 MG 24 hr capsule Take 4 mg by mouth 1 (one) time each day Do not crush, chew, or split. Active acetaminophen (TYLENOL) 325 MG tablet Take 650 mg by mouth every 6 (six) hours if needed for mild pain Active lansoprazole (PREVACID) [address] capsule Take 30 mg by mouth 1 (one) time each day before breakfast Do not crush or chew. Active Denosumab (Prolia) 60 MG/ML solution prefilled syringe Inject under the skin Active glucosamine-cho ndroitin 500-400 MG tablet Take 1 tablet by mouth 1 (one) time each day Active Multiple Vitamin (multivitamin) tablet Take 1 tablet by mouth 1 (one) time each day Active aspirin (ST SEGUNDO) 81 MG EC tablet Take 81 mg by mouth 1 (one) time each day Active ezetimibe (ZETIA) 10 MG tablet Take 1 tablet by mouth 1 (one) time each day Active Diclofenac Sodium 1 % gel Apply topically 4 (four) times a day Active Magnesium 250 MG tablet Take 1 tablet by mouth 1 (one) time each day Active atorvastatin (LIPITOR) 40 MG tablet Take 40 mg by mouth 1 (one) time each day Active clopidogrel (PLAVIX) 75 MG tablet Take 75 mg by mouth 1 (one) time each day Active chlorthalidone 25 MG tablet Take 25 mg by mouth 1 (one) time each day Active carvedilol (Coreg) 12.5 MG tablet Take 1 tablet (12.5 mg total) by mouth in the morning and 1 tablet (12.5 mg total) in the evening. Take with meals. 240 tablet 3 2 Active amLODIPine (NORVASC) 5 MG tablet Take 5 mg by mouth 1 (one) time each day 3 Active Active Problems Problem Noted Date Diagnosed Date Hypertension 03/28/2021 Essential (primary) hypertension 03/27/2021 Family History Medical History Relation Comments Heart disease Father Cancer Mother Breast cancer Relation Status Comments Father Mother Social History Tobacco Use Types Packs/Day Years Used Date Smoking Tobacco: Former Smokeless Tobacco: Never Tobacco Cessation:Counseling Given: Not Answered Alcohol Use Standard Drinks/Week Comments Yes 0 (1 standard drink = 0.6 oz pur e alcohol) Comments Unknown Sex and Gender Information Value Date Recorded Sex Assigned at Not on file Legal Sex Female 9:53 AM EST Gender Identity Not on file Sexual Orientation Not on file Last Filed Vital Signs Vital Sign Reading Time Taken Comments Blood Pressure 134/50 10/16/2022 2:14 PM EDT Pulse 58 10/16/2022 2:14 PM EDT Temperature - - Respiratory Rate - - Oxygen Saturation 99% 03/28/2021 2:22 PM EST Inhaled Oxygen Concentration - - Weight 46.4 kg (102 lb 6.4 oz) 10/16/2022 2:14 P M EDT Height - - Body Mass Index - - Plan of Treatment Health Maintenance Due Date Last Done Comments Pneumococcal Vaccine: 65+ Ye ars (1 of 2 - PCV) 1941 Influenza Vaccine (#1) 2023 Hepatitis B Vaccine Aged Out No longe r eligible based on patient's age to complete this topic Insurance MEDICARE [facility] MEDICARE [facility] Care Teams Preform Machine Operator Relationship Specialty Start Date End Date Shirin Magana MD [address] [place], [place] PCP - General Internal Medicine 02/26/21
== END 2024-06-15 12:10 | disposition home or self-care (01) ==
PROVIDERS: PCP Internal Medicine; Visit Provider Internal Medicine Endocrinology, Diabetes & Metabolism
DX: M81.0 Age-related osteoporosis without current pathological fracture (principal)
CPT/HCPCS: 99213

== ENCOUNTER → 2024-06-15 11:27 | Outpatient (BNVA) | payer MEDICARE, OTHER, SELFPAY | PROVIDERS: PCP Internal Medicine; Visit Provider Internal Medicine Endocrinology, Diabetes & Metabolism | DX: M81.0 Age-related osteoporosis without current pathological fracture (principal) | CPT/HCPCS: 96372; 99212; J0897 ==

== ENCOUNTER 2024-07-07 13:30 | Outpatient (AMB) | payer MEDICARE, OTHER, SELFPAY ==
--- NOTE | 2024-07-07 13:31 | A.OFFVIS_ITS ---
Vital Signs 07/07/24 13:32 Height 4 ft 9 in Weight 95 lb 10.89 oz BMI 20.7 BP 132/56 L Blood Pressure Location Lt brachial Position Sitting Pulse 62 Pulse Source Pulse Oximeter Intake Visit Reasons[place] [facility] [employer] Taleo Manager Required: No Accompanied by: Self / Same As Patient Allergies cephalexin [Keflex] Allergy (Intermediate, Verified 06/15/24 11:45) Unknown tetracycline [Tetracycline] Allergy (Intermediate, Verified 06/15/24 11:45) TONGUE SWOLLEN Medication List - Last Reconciled 07/07/24 by Delvis Patel NP acetaminophen ER (Tylenol Arthritis Pain) 1,300 mg PO Q6H PRN amlodipine 5 mg PO BEDTIME 90 days aspirin (Adult Aspirin Regimen) 81 mg PO DAILY carvedilol 6.25 mg PO BID 90 days ezetimibe 10 mg PO BEDTIME lansoprazole 30 mg PO DAILY@0630 losartan 100 mg PO DAILY polyethylene glycol 3350 17 grams PO DAILY PRN rosuvastatin 10 mg PO BEDTIME tiotropium bromide 1.25 mcg/actuation (Spiriva Respimat) 2 puffs inhalation DAILY vibegron (Gemtesa) 75 mg PO DAILY 90 days walker Pediatric walker HPI Comments Details: This is an 89-year-old female patient presenting for a hospital discharge follow-up. Patient has a history of CVA, hypertension, chronic anemia requiring monthly blood transfusions, and COPD. Patient was hospitalized recently for a syncopal episode which was similar to an episode she had experienced back in December. Following the 1st episode, patient underwent a Holter monitor which showed sinus rhythm with an average heart rate in the 60s. This time, the patient was at [employer] again with the sister and had some lightheadedness with some nausea and had experienced a strong urge to have a bowel movement. Patient has syncopized but does not remember anything after that and was brought to the hospital. Her labs were unremarkable and she was referred for outpatient GI consultation for the constipation. Was thought that this was vagal type response and her chlorthalidone was stopped. Her carvedilol was reduced. The patient today reports feeling somewhat tired and had her transfusion a week ago. Patient is otherwise denying any symptoms of exertional chest pain, shortness of breath, palpitations, dizziness, orthopnea, PND, leg edema, presyncope, or syncope. Patient states she has been compliant with all her medications. [facility] Medical History (Updated 07/07/24 @ 14:14 by Delvis Patel NP) Hypertension Syncope and collapse Atrioventricular block, first degree Syncope Hospital discharge follow-up Acute leg pain Facial paresthesia Swelling of lower extremity Right leg swelling Hypertensive urgency Constipation Frequent UTI Edema of left lower leg Leg cramping Primary hypertension Uncontrolled hypertension Left hip pain Left-sided weakness Left sided sciatica Adult general medical exam Screening for breast cancer Osteoarthritis of right hip Hospital discharge follow-up Vitamin D deficiency Hypercalcemia Multiple lacunar infarcts Hearing loss Urge urinary incontinence GERD (gastroesophageal reflux disease) COPD (chronic obstructive pulmonary disease) Dyslipidemia Hypercalcemia Osteoporosis History of ductal carcinoma in situ (DCIS) of breast Surgical History History of right hip replacement History of colonoscopy History of lumpectomy of right breast History of pubovaginal sling H/O right inguinal hernia repair Family History Father Heart failure CVD (cardiovascular disease) Mother Breast cancer Social History Household Members: None Household Members Other:: alone Housing: House Do you presently have visiting nurse or other home services: No Alcohol intake: former Patient Tobacco Use Status: Former Tobacco user Tobacco use type: Cigarette e-Cigarette/Vaping Use: Never Used Second Hand Smoke Exposure: No Advance Directives Date on File: 10/19/21 service: No Current occupational status: retired Cognitive needs: Yes (CANE) Hearing needs: Yes (hearing aide) Vision needs: No (glaases) Review of Systems Const Denies chills, Denies fatigue, Denies fever(s), Denies weight gain and Denies weight loss ENT Denies dizziness Card Denies chest pain, Denies leg edema, Denies lightheadedness, Denies palpitations, Denies dyspnea on exertion, Denies orthopnea and Denies other Resp Denies cough and Denies dyspnea on exertion GI Denies hematochezia and Denies change in stool character Musc Denies abnormal gait, Denies muscle weakness, Denies numbness, Denies radiating pain into limb and Denies tingling Neuro Denies abnormal gait, Denies dizziness, Denies numbness and Denies tingling Endo Denies fatigue and Denies palpitations Physical Exam Vital Signs: Last Vital Signs Pulse 62 07/07/24 13:32 BP 132/56 L 07/07/24 13:32 BMI result Body Mass Index 20.7 Const General: cooperative, healthy appearing, comfortable and no acute distress Orientation/consciousness: patient oriented x3 HEENT Head: Yes normal to inspection Neck Neck: Yes normal visual inspection, Yes trachea midline and Yes supple Chest Chest palpation & inspection: normal inspection of the chest Resp Effort & Inspection: normal respiratory effort Auscultation: clear to auscultation bilaterally, no crackles, no rales, no rhonchi and no wheezes Cardio Jugular venous distension: no JVD Palpation: normal PMI Rate: regular rate Rhythm: regular rhythm Heart sounds: S1 normal heart sound present, S2 normal heart sound present, no click, no gallops, no murmurs and no rubs Peripheral pulses: Peripheral pulses 2+ throughout GI Inspection: Yes normal to inspection Palpation (GI): Soft to palpation Auscultation: normal bowel sounds Skin General skin exam: no rashes or lesions noted Neuro General: patient oriented x3 Extrem General: Yes normal to inspection, No no pedal edema and No calf tenderness Psych Appearance: grossly normal Mental Status: mental status grossly normal Speech and movement: Normal speech and movement present Assessment & Plan Assessment & Plan (1) Syncope and collapse: Code(s): R55 - Syncope and collapse Category: Medical Plan: 12/22/2023-patient underwent an echocardiogram that showed a normal EF of 65-70% with impaired relaxation filling pattern, moderate mild annular calcification, calcification changes to the aortic valve with a early mild aortic stenosis. 01/19/2024-patient underwent a 3 day Holter monitor which showed a normal sinus rhythm with an average heart rate of 65 beats per minute, rare ectopy. Her symptoms were thought to be a vagal type response triggered by her constipation. Patient has an upcoming GI appointment outpatient. No reported symptoms of dizziness, lightheadedness, or syncope since hospital discharge. Patient's symptoms of being tired could be related to her chronic anemia for which she gets her blood transfusions. Clinically euvolemic. (2) Hypertension: Code(s): I10 - Essential (primary) hypertension Category: Medical Qualifiers: Hypertension type: essential hypertension Qualified Code(s): I10 - Essential (primary) hypertension Plan: Blood pressure today is well-controlled. Continue current regimen. Advised to continue monitoring blood pressures at home and keeping a log. Ideally, blood pressure goal less than 130/80. (3) Hospital discharge follow-up: Code(s): Z09 - Encounter for follow-up examination after completed treatment for conditions other than malignant neoplasm Plan: As above. Advised patient to continue with a heart healthy diet, regular exercise as tolerated, and discussed the possibility of a vagal response and educated regarding this potential causes and management. Follow-up in 6 months with an updated echo. In the interim, patient will call us with any concerns or change in symptoms. This note was generated using voice recognition software. While every effort has been made to ensure accuracy and proper maint mechanic, there may be occasional errors that could affect the content or meaning of the described symptoms. Orders: Orders CA echo transthoracic complete 4 Months R55 - Syncope and collapse Coding Level of Care Code Est Pt Level 4 (25107) Complex EM visit Add On G2211 Diagnoses Syncope and collapse R55 Essential hypertension I10 Hypertension type: essential hypertension Hospital discharge follow-up Z09 Time Spent (min) 33 Comment Time spent in reviewing the chart, test results, assessment, counseling and documentation.
[2024-07-07 13:32] VITALS: BP 132/56; PULSE 62; BMI 20.7
--- OUTSIDE RECORDS SUMMARY | 2024-07-07 15:56 | XMS_ITS | Patient Health Record ---
Author Organization [facility] Address [address] [place] [address] Care Team Providers Care Vice Investigator Name Role Phone Shirin Magana Primary Care Provider Levi Mares Jr Unavailable [phone] Allergies Allergen (clinical drug ingredient) Drug/Non Drug Allergy documented on EMR Reaction Allergy Type Onset Date Status tetracaine Tetracaine HCl Unknown Drug Allergy A ctive Keflex Unknown Drug Allergy Active Reason For Referral No Information Medications Medication SIG (Take, Route, Fr equency, Duration) Notes Start Date End Date Status Simvastatin Active dilTIAZem HCl Active Glucosamine Active Detrol LA Active hydroCHLOROthiazide Active Avapro Active Prevacid 04/21/2024 04/21/2024 Active Multivitamins Active Spiriva HandiHaler A ctive Calcium + D Active ProAir HFA Active Nitrofurantoin Activ e Problems Problem Type SNOMED Code ICD Code Onset Dates Problem Status W/U Status Risk Notes Problem Esophageal reflux (124761994) Esophageal reflux (530.81) Active confirmed Plan Of Treatment Next Appt Details Provider Name:Levi guerrero Jr, 07/19/2024 01:55:00 PM, [address], [address], [place], [address], Insurance Providers Payer Name Payer Address Payer Phone Subscriber Number Group Number Insured Name Patient Relationship to Insured Coverage Start Date Coverage End Date [place] OF [place] [address] [facility] [address] [id number] YARA CASTILLO Self - patient is the insured PGBA DO NOT USE DO NOT USE [facility] CLAIMS USE [facility] [address] [place] [address] [id number] YARA CASTILLO Self - patient is the insured Medical (General) History Medical History History ICD Code colonoscopy 03-12-2002 egd 09-25-2001 gerd colon polyps decreased bone density hypertension Elevated cholesterol Surgical History Surgery Date(Month/Year) bladder suspension benign breast biopsies partial hysterectomy Breast surgery/radiation
--- OUTSIDE RECORDS SUMMARY | 2024-07-07 15:56 | XMS_ITS | Clinical Summary ---
Author Organization [facility] Address [address] [place] [address] Care Team Providers Care Php Web Developer Name Role Phone Yamil Meraz MD Primary [...] total) by mouth. 0 07/31/2023 Active Tiotropium [place] Monohydrate (Spiriva Respimat) 1.25 MCG/ACT AERS Inhale [...] age to complete this topic Care Teams Php Web Developer Relationship Specialty Start Date End Date Yamil Meraz MD PCP - General Internal Medicine 09/04/23
--- OUTSIDE RECORDS SUMMARY | 2024-07-07 15:56 | XMS_ITS | Clinical Summary ---
Author Organization [facility] Address [address] [place] [address] Phone Care Team Providers Care Casual Shoe Inspector Name Role Phone Shirin Magana MD Primary Care Provider [phone] Allergies Active Allergy Reactions Criticality Noted Date [...] age to complete this topic Insurance MEDICARE [facility] MEDICARE [facility] Care Teams Casual Shoe Inspector Relationship Specialty Start Date End Date Shirin Magana MD [address] [place], [place] PCP - General Internal Medicine 02/26/21
== END 2024-07-07 14:12 | disposition home or self-care (01) ==
LOC: HO.HCS 13:30
PROVIDERS: PCP Internal Medicine
DX: R55 Syncope and collapse (principal); I10 Essential (primary) hypertension; Z09 Encounter for follow-up examination after completed treatment for conditions other than malignant neoplasm
CPT/HCPCS: 99214; G2211

== ENCOUNTER → 2024-07-07 13:30 | Outpatient (BNVA) | payer MEDICARE, OTHER, SELFPAY | PROVIDERS: PCP Internal Medicine | DX: I10 Essential (primary) hypertension (principal); R55 Syncope and collapse; Z09 Encounter for follow-up examination after completed treatment for conditions other than malignant neoplasm; Z86.73 Personal history of transient ischemic attack (TIA), and cerebral infarction without residual deficits | CPT/HCPCS: 99212 ==

== ENCOUNTER 2024-07-28 11:19 | Outpatient (AMB) | payer MEDICARE, OTHER, SELFPAY ==
--- NOTE | 2024-07-28 11:27 | HO.NEPHOV_ITS ---
Vital Signs 07/28/24 11:40 Height 4 ft 9 in Weight 93 lb BMI 20.1 BP 102/40 L Blood Pressure Location Lt brachial Position Sitting Intake Visit Reasons: Hypertension-LVM Telehealth Director Required: No Accompanied by: Self / Same As Patient Allergies cephalexin [Keflex] Allergy (Intermediate, Verified 07/28/24 11:40) Unknown tetracycline [Tetracycline] Allergy (Intermediate, Verified 07/28/24 11:40) TONGUE SWOLLEN HPI Comments Details: I had the privilege of seeing Chichi in follow-up of her hypertension. She has history of cerebrovascular accident. She monitors her blood pressure closely. She denies any chest pain, dizziness, headache, visual disturbance, pedal edema. She monitors her blood pressure at home. Her blood pressure had been remaining close to goal. She avoids nonsteroidal anti-inflammatory medication and chief with a low-sodium diet. She is awaiting hip surgery. She has history of renal cyst. She has no flank pain, hematuria or any other urinary symptoms. She had anemia & has been seen by Heme Onc and get PRBC. She had a syncope in Apr and her BP medications had been adjusted( D/Álvaro Chlorthalidone and carvedilol was reduced). [facility] Medical History Hypertension Syncope and collapse Atrioventricular block, first degree Syncope Hospital discharge follow-up Acute leg pain Facial paresthesia Swelling of lower extremity Right leg swelling Hypertensive urgency Constipation Frequent UTI Edema of left lower leg Leg cramping Primary hypertension Uncontrolled hypertension Left hip pain Left-sided weakness Left sided sciatica Adult general medical exam Screening for breast cancer Osteoarthritis of right hip Hospital discharge follow-up Vitamin D deficiency Hypercalcemia Multiple lacunar infarcts Hearing loss Urge urinary incontinence GERD (gastroesophageal reflux disease) COPD (chronic obstructive pulmonary disease) Dyslipidemia Hypercalcemia Osteoporosis History of ductal carcinoma in situ (DCIS) of breast Surgical History History of right hip replacement History of colonoscopy History of lumpectomy of right breast History of pubovaginal sling H/O right inguinal hernia repair Family History Father Heart failure CVD (cardiovascular disease) Mother Breast cancer Social History Household Members: None Household Members Other:: alone Housing: House Do you presently have visiting nurse or other home services: No Alcohol intake: former Patient Tobacco Use Status: Former Tobacco user Tobacco use type: Cigarette e-Cigarette/Vaping Use: Never Used Second Hand Smoke Exposure: No Advance Directives Date on File: 10/19/21 service: No Current occupational status: retired Cognitive needs: Yes (CANE) Hearing needs: Yes (hearing aide) Vision needs: No (glaases) Review of Systems Const All systems reviewed & are unremarkable except as noted in HPI and below Physical Exam Const General: comfortable and no acute distress Orientation/consciousness: patient oriented x3 HEENT Head: Yes normocephalic Mouth: Normal oral and palatal mucosa present Eyes EOM: EOMs intact bilaterally Neck Neck: Yes supple Resp Auscultation: clear to auscultation bilaterally Cardio Jugular venous distension: no JVD Rate: regular rate GI Palpation (GI): Soft to palpation Auscultation: normal bowel sounds General: Yes no CVA tenderness Back/Spine/Pelvis Back: no CVA tenderness Skin General skin exam: no rashes or lesions noted Neuro General: patient oriented x3 and moves all extremities Extrem General: Yes no pedal edema Results Reviewed Nephrology Results: Hgb 9.2 g/dl (12.0-16.0) L 07/27/24 WBC 6.8 X10*3/uL (4.8-10.8) 07/27/24 Plt Count 321 X10*3/uL (160-400) 07/27/24 Sodium 142 mmol/L (135-145) 06/14/24 Potassium 4.6 mmol/L (3.3-5.1) 06/14/24 Chloride 111 mmol/L (96-108) H 06/14/24 Carbon Dioxide 26 mmol/L (22-29) 06/14/24 BUN 22 mg/dL (9-16) H 06/14/24 Creatinine 0.82 mg/dL (0.5-1.4) 06/14/24 Calcium 9.7 mg/dL (8.4-10.2) 06/14/24 Assessment & Plan Assessment & Plan (1) Hypertension: Code(s): I10 - Essential (primary) hypertension Category: Medical Qualifiers: Hypertension type: essential hypertension Qualified Code(s): I10 - Essential (primary) hypertension Plan Chichi has longstanding hypertension. She has history of CVA. She is not known to have any significant proteinuria. Her renal functions are at baseline. Her serum potassium is normal. She is compliant with her medications. She monitors her blood pressure and has been a bit low. I reduced her Amlodipine to 2.5 mg which I may stop if her BP does not improve. She avoids nonsteroidal anti- inflammatory medications and maintain good hydration.Her renal cyst has been asymptomatic. She maintains a low-sodium diet. I did not make any medication changes today. All questions answered. Follow-up given Coding Level of Care Code Est Pt Level 4 (14816) Diagnoses Essential hypertension I10 Hypertension type: essential hypertension
[2024-07-28 11:40] VITALS: BP 102/40; BMI 20.1
--- OUTSIDE RECORDS SUMMARY | 2024-07-28 13:26 | XMS_ITS | Clinical Summary ---
Author Organization [facility] Address [address] [place] [address] Care Team Providers Care Jointer Submarine Cable Name Role Phone Yamil Meraz MD Primary [...] total) by mouth. 0 07/31/2023 Active Tiotropium [place] Monohydrate (Spiriva Respimat) 1.25 MCG/ACT AERS Inhale [...] age to complete this topic Care Teams Jointer Submarine Cable Relationship Specialty Start Date End Date Yamil Meraz MD PCP - General Internal Medicine 09/04/23
--- OUTSIDE RECORDS SUMMARY | 2024-07-28 13:26 | XMS_ITS | Clinical Summary ---
Author Organization [facility] Address [address] [place] [address] Phone Care Team Providers Care Surgical Instrument Maker Name Role Phone Shirin Magana MD Primary Care Provider [phone] Allergies Active Allergy Reactions Criticality Noted Date [...] of 2 - PCV) 1941 Influenza Vaccine (Season Ended) 2024 Hepatitis B Vaccine Aged Out No longe r eligible based on patient's age to complete this topic Insurance MEDICARE [facility] MEDICARE [facility] Care Teams Surgical Instrument Maker Relationship Specialty Start Date End Date Shirin Magana MD [address] [place], [place] PCP - General Internal Medicine 02/26/21
--- OUTSIDE RECORDS SUMMARY | 2024-07-28 13:26 | XMS_ITS | Patient Health Record ---
Author Organization [facility] Address [address] [place] [address] Care Team Providers Care Scarfer Name Role Phone Shirin Magana Primary Care Provider Levi Mares Jr Unavailable [phone] Allergies Allergen (clinical drug ingredient) Drug/Non Drug Allergy documented on EMR Reaction Allergy Type Onset Date Status tetracaine Tetracaine HCl Unknown Drug Allergy A ctive Keflex Unknown Drug Allergy Active Reason For Referral No Information Medications Medication SIG (Take, Route, Frequency, Duration) Notes Start Date End Date Status Simvastatin Active Carvedilol 6.25 MG TAKE 1 TABLET BY MOUTH TWICE DAILY. REPLACES BEFORE DOSE OF 12.5 MG 2 TIMES DAILY Oral for 90 Days Active Acetaminophen 500 MG 1 tablet as needed Orally every 6 hrs 07/19/2024 Active Detrol LA Active Prevacid Active Avapro Active Ezetimibe 10 MG TAKE 1 TABLET BY MOUTH DAILY Oral for 90 Days Active dilTIAZem HCl Active Gemtesa 75 MG Oral for 90 Days Active Lansoprazole 30 MG Oral for 90 Days Not-Taking ProAir HFA Active Multivitamins Active amLODIPine Besylate 5 MG TAKE 1 TABLET B Y MOUTH AT BEDTIME Oral for 90 Days Active Nitrofurantoin Activ e Polyethylene Glycol 3350 17 GM MIX 17 GRAMS IN AN 8 OUNCE GLASS OF WATER OR JUICE EVERY DAY NEEDED FOR CONSTIPATION Oral for 28 Days Active Losartan Potassium 100 MG Oral for 90 Days Active Calcium + D Active Rosuvastatin Calcium 10 MG TAKE 1 TABLET BY MOUTH AT BEDTIME Oral for 90 Days Active Spiriva HandiHaler A ctive hydroCHLOROthiazide Active Aspirin 81 81 MG 1 tablet Orally Once a day for 30 day(s) 07/19/2024 Active Glucosamine Active Spiriva Respimat 1.25 MCG/ACT Inhalation for 90 Days Active Immunizations Vaccine Route Administration Date Status Comme nts Influenza Unknown 02/10/2024 Administered Social History AUDIT-C (Standard) Question Answer Notes Did you have a drink containing alcohol in the p ast year? No Points 0 Interpretation Negative Problems Problem Type SNOMED Code ICD Code Onset Dates Problem Status W/U Status Risk Notes Problem Esophageal reflux (131694218) Esophageal reflux (530.81) Active confirmed Vital Signs Temperature 96.6 degrees Fahrenheit 07/19/2024 Blood pressure diastolic 01 mm Hg 07/19/2024 Height 59.25 in 07/19/2024 Blood pressure systolic 001 mm Hg 07/19/2024 Weight 95 lbs 07/19/2024 BMI 19.02 kg/m2 07/19/2024 Encounters Encounter Location Date Provider Diagnosis [facility] [address] [place] [address] 07/19/2024 Levi Renteria Jr Plan Of Treatment No Information Insurance Providers Payer Name Payer Address Payer Phone Subscriber Number Group Number Insured Name Patient Relationship to Insured Coverage Start Date Coverage End Date MEDICARE OF [place] [address] [place] [address] [phone] [id number] YARA CASTILLO Self - patient is the insured 0 FOR [address] [place] [address] [id number] YARA CASTILLO Self - patient is the insured Medical (General) History Medical History History ICD Code colonoscopy 03-12-2002 egd 09-25-2001 gerd colon polyps decreased bone density hypertension Elevated cholesterol Surgical History Surgery Date(Month/Year) Breast surgery/radiation partial hysterectomy benign breast biopsies bladder suspension
--- OUTSIDE RECORDS SUMMARY | 2024-07-28 13:26 | XMS_ITS ---
Author Organization [facility] Address [address] [place] [address] Care Team Providers Care Manager Control Name Role Phone Shirin Magana Primary Care Provider Levi Mares Jr Unavailable [phone] Allergies Allergen (clinical drug ingredient) Drug/Non Drug Allergy documented on EMR Reaction Allergy Type Onset Date Status tetracaine Tetracaine HCl Unknown Drug Allergy A ctive Keflex Unknown Drug Allergy Active REASON FOR VISIT Patient presents today for a change in bowels Medications Medication SIG (Take, Route, Frequency, Duration) Notes Start Date End Date Status Prevacid Active Calcium + D Active Spiriva HandiHaler A ctive hydroCHLOROthiazide Active Glucosamine Active Avapro Active dilTIAZem HCl Active ProAir HFA Active Multivitamins Active Nitrofurantoin Activ e Simvastatin Active Acetaminophen 500 MG 1 tablet as needed Orally every 6 hrs 07/19/2024 Active Detrol LA Active Lansoprazole 30 MG Oral for 90 Days Not-Taking Polyethylene Glycol 3350 17 GM MIX 17 GRAMS IN AN 8 OUNCE GLASS OF WATER OR JUICE EVERY DAY NEEDED FOR CONSTIPATION Oral for 28 Days Active Rosuvastatin Calcium 10 MG TAKE 1 TABLET BY MOUTH AT BEDTIME Oral for 90 Days Active Aspirin 81 81 MG 1 tablet Orally Once a day for 30 day(s) 07/19/2024 Active Spiriva Respimat 1.25 MCG/ACT Inhalation for 90 Days Active Carvedilol 6.25 MG TAKE 1 TABLET BY MOUTH TWICE DAILY. REPLACES BEFORE DOSE OF 12.5 MG 2 TIMES DAILY Oral for 90 Days Active Ezetimibe 10 MG TAKE 1 TABLET BY MOUTH DAILY Oral for 90 Days Active Gemtesa 75 MG Oral for 90 Days Active amLODIPine Besylate 5 MG TAKE 1 TABLET B Y MOUTH AT BEDTIME Oral for 90 Days Active Losartan Potassium 100 MG Oral for 90 Days Active Social History Tobacco Use: Social History Observation Description Date Details (start date - stop date) Former Smoker NA - NA Tobacco Use/Smoking Question Answer Notes Patient is a former smoker How long has it been since you last smoked? > 10 years Alcohol Screen Question Answer Notes Did you have a drink contain ing alcohol in the past year? Yes Points 3 Interpretation Positive How often did you have 6 or more drinks on one occasion in the past year? Never (0 point) How many drinks did you have on a typical day when you were drinking in the past year? 1 or 2 drinks (0 point) How often did you have a dri nk containing alcohol in the past year? 2 to 3 times a week (3 points) AUDIT-C (Standard) Question Answer Notes Did you have a drink containing alcohol in the p ast year? No Points 0 Interpretation Negative Vital Signs Temperature 96.6 degrees Fahrenheit 07/20/19 25 Blood pressure systolic 001 mm Hg 07/20/19 25 Blood pressure diastolic 01 mm Hg 025 Height 59.25 in 07/19/2024 Weight 95 lbs 07/19/2024 BMI 19.02 kg/m2 07/19/2024 Encounters Encounter Location Date Provider Diagnosis [facility] [address] [place] [address] 07/19/2024 Levi Renteria Jr Plan Of Treatment No Information Progress Notes * FILI CASTILLOOB:1935 ( 89 yo F)Acc No.[id number]:07/19/2024 Progress Notes Patient:?YARA CASTILLO Provider:?Levi Renteria MD :1935???Age:89 Y???Sex:Female D ate:07/19/2024 Address: [address], [place], [place] Pcp:Shirin Duron Subjective: * Chief Complaints: * ???1. Patient presents today for a change in bowels. * Medical History:?Colonoscopy 03-12-2002, Egd 09-25-2001, Gerd, Colon polyps, Decreased bone density, Hypertension, Elevated cholesterol. * Surgical History:?bladder morales spension , benign breast biopsies , partial hysterectomy , Breast surgery/radiation . * Family History:? Negative family history for colorectal cancer. No family history of liver cancer. * Social History:?Tobacco Use:?Tobacco Use/Smoking?Patient is a?former smoker,?How long has it been since you last smoked??> 10 years.?Drugs/Alcohol:?Alcohol Screen?Did you have a drink containing alcohol in the past year??Yes,?How often did you have 6 or more drinks on one occasion in the past year??Never (0 point),?How many drinks did you have on a typical day when you were drinking in the past year??1 or 2 drinks (0 point),?How often did you have a drink containing alcohol in the past year??2 to 3 times a week (3 points),?Points?3,?Interpretation?Positive.?Miscellaneous:?Marital status: . Occupation: Retired. ???Drug/Alcohol:?AUDIT-C (Standard)?Did you have a drink containing alcohol in the past year??No,?Points?0,?Interpretation?Negative.? * Medications:?Taking Detrol L A , Taking Simvastatin , Taking dilTIAZem HCl , Taking Avapro , Taking Multivitamins , Taking ProAir HFA , Taking Nitrofurantoin , Taking Spiriva HandiHaler , Taking Calcium + D , Taking Glucosamine , Taking hydroCHLOROthiazide , Taking Prevacid , Taking Carvedilol 6.25 MG Tablet TAKE 1 TABLET BY MOUTH TWICE DAILY. REPLACES BEFORE DOSE OF 12.5 MG 2 TIMES DAILY Oral , Taking Gemtesa 75 MG Tablet Oral , Taking Ezetimibe 10 MG Tablet TAKE 1 TABLET BY MOUTH DAILY Oral , Taking amLODIPine Besylate 5 MG Tablet TAKE 1 TABLET BY MOUTH AT BEDTIME Oral , Taking Losartan Potassium 100 MG Tablet Oral , Taking Polyethylene Glycol 3350 17 GM Packet MIX 17 GRAMS IN AN 8 OUNCE GLASS OF WATER OR JUICE EVERY DAY NEEDED FOR CONSTIPATION Oral , Taking Rosuvastatin Calcium 10 MG Tablet TAKE 1 TABLET BY MOUTH AT BEDTIME Oral , Taking Spiriva Respimat 1.25 MCG/ACT Aerosol Solution Inhalation , Taking Aspirin 81 81 MG Tablet Delayed Release 1 tablet Orally Once a day , Taking Acetaminophen 500 MG Tablet 1 tablet as needed Orally every 6 hrs , Not-Taking/PRN Lansoprazole 30 MG Capsule Delayed Release Oral , Discontinued Oseltamivir Phosphate 30 MG Capsule TAKE 1 CAPSULE BY MOUTH EVERY 48 HOURS Oral , Discontinued Vitamin C 500 MG Capsule as directed Orally , Medication List reviewed and reconciled with the patient * Allergies:?Tetracaine HCl, K eflex. Objective: * Vitals:?Wt: 95 lbs, Ht: 59.2 5 in, BMI: 19.02 Index, BP: 001/01 mm Hg, Temp: 96.6, Wt-k.09. Assessment: Plan: * Treatment: * Preventive Medicine:? ??Urinary Incontinence:?Urinary Incontinence?Assessment:?Absent,?Plan of care documented:?Yes,?Type of plan of care:?Bladder training.? ??Screenings:?Fall Risk Screening?Fall Risk Assessment:?No falls in the past year,?Screening:?No falls in the past year,?Assessment:?Not performed, no reason specified,?Plan of Care:?Not documented, no reason specified.? * * The named appointment provid er may or may not be the originator of this progress note, and it is not deemed complete until electronically signed by the appointment provider. Sign off status: Pending * Provider:?Levi Renteria MD Date:?0 07/19/2024 Generated for Jani larsen/Urbano/Milena on:?07/28/2024 01:26 PM EDT
== END 2024-07-28 12:01 | disposition home or self-care (01) ==
LOC: HO.HKA 11:20
PROVIDERS: PCP Internal Medicine; Visit Provider Internal Medicine Nephrology
DX: I10 Essential (primary) hypertension (principal)
CPT/HCPCS: 99214

== ENCOUNTER → 2024-07-28 11:19 | Outpatient (BNVA) | payer MEDICARE, OTHER, SELFPAY | PROVIDERS: PCP Internal Medicine; Visit Provider Internal Medicine Nephrology | DX: I10 Essential (primary) hypertension (principal) | CPT/HCPCS: 99212 ==

== ENCOUNTER 2024-08-16 13:19 | Outpatient (REF) | payer SELFPAY ==
--- OUTSIDE RECORDS SUMMARY | 2024-08-16 15:50 | XMS_ITS | Clinical Summary ---
Author Organization [facility] Address [address] [place] [address] Phone Care Team Providers Care Toter Name Role Phone Shirin Magana MD Primary Care Provider [phone] Allergies Active Allergy Reactions Criticality Noted Date [...] Due Date Last Done Comments Pneumococcal Vaccine: 50+ Ye ars (1 of 2 - PCV) 1954 Influenza Vaccine (Season Ended) 2024 Hepatitis B Vaccine Aged Out No longe r eligible based on patient's age to complete this topic Insurance Medicare [facility] Medicare [facility] Care Teams Toter Relationship Specialty Start Date End Date Shirin Magana MD [address] [place], [place] PCP - General Internal Medicine 02/26/21
--- OUTSIDE RECORDS SUMMARY | 2024-08-16 15:50 | XMS_ITS | Clinical Summary ---
Author Organization [facility] Address [address] [place] [address] Care Team Providers Care Command And Control Officer Name Role Phone Yamil Meraz MD Primary [...] total) by mouth. 0 07/31/2023 Active Tiotropium [place] Monohydrate (Spiriva Respimat) 1.25 MCG/ACT AERS Inhale [...] age to complete this topic Care Teams Command And Control Officer Relationship Specialty Start Date End Date Yamil Meraz MD PCP - General Internal Medicine 09/04/23
== END 2024-08-16 13:20 | disposition home or self-care (01) ==
LOC: HO.HAP 13:19
PROVIDERS: Visit Provider Internal Medicine
DX: Z46.1 Encounter for fitting and adjustment of hearing aid (principal); H90.3 Sensorineural hearing loss, bilateral
CPT/HCPCS: 92700; V5264; V5299

== ENCOUNTER 2024-08-20 14:46 | Outpatient (AMB) | payer MEDICARE, OTHER, SELFPAY ==
--- OUTSIDE RECORDS SUMMARY | 2024-08-20 14:48 | XMS_ITS | Clinical Summary ---
Author Organization [facility] Address [address] [place] [address] Phone Care Team Providers Care Photography And Prints Curator Name Role Phone Shirin Magana MD Primary Care Provider [phone] Allergies Active Allergy Reactions Criticality Noted Date [...] age to complete this topic Insurance Medicare [facility] Medicare [facility] Care Teams Photography And Prints Curator Relationship Specialty Start Date End Date Shirin Magana MD [address] [place], [place] PCP - General Internal Medicine 02/26/21
--- OUTSIDE RECORDS SUMMARY | 2024-08-20 14:49 | XMS_ITS | Clinical Summary ---
Author Organization [facility] Address [address] [place] [address] Care Team Providers Care Metallurgist Process Name Role Phone Yamil Meraz MD Primary [...] total) by mouth. 0 07/31/2023 Active Tiotropium [place] Monohydrate (Spiriva Respimat) 1.25 MCG/ACT AERS Inhale [...] age to complete this topic Care Teams Metallurgist Process Relationship Specialty Start Date End Date Yamil Meraz MD PCP - General Internal Medicine 09/04/23
--- NOTE | 2024-08-20 15:00 | HO.NEPHOV_ITS ---
Vital Signs 08/20/24 15:04 Height 4 ft 9 in Weight 93 lb BMI 20.1 BP 110/50 L Blood Pressure Location Rt brachial Position Sitting Pulse 61 Pulse Source Pulse Oximeter Pulse Oximetry (%) 99 Oxygen Delivery Method Room Air Intake Visit Reasons: 1 MO FU-[facility] Enterprise Integration Architect Required: No Accompanied by: Self / Same As Patient Allergies cephalexin [Keflex] Allergy (Intermediate, Verified 08/20/24 15:05) Unknown tetracycline [Tetracycline] Allergy (Intermediate, Verified 08/20/24 15:05) TONGUE SWOLLEN Do you need a note to return to daycare/school/sports/work: No HPI Comments Details: I had the privilege of seeing Chichi in follow-up of her hypertension. She has history of cerebrovascular accident. She monitors her blood pressure closely. She denies any chest pain, dizziness, headache, visual disturbance, pedal edema. She monitors her blood pressure at home. Her blood pressure had been remaining close to goal. She avoids nonsteroidal anti-inflammatory medication and chief with a low-sodium diet. She has history of renal cyst. She has no flank pain, hematuria or any other urinary symptoms. She had anemia & has been seen by Heme Onc and get PRBC. She had a syncope in Apr and her BP medications had been adjusted( D/Álvaro Chlorthalidone and carvedilol was reduced) [facility] Medical History (Reviewed 08/20/24 @ 15: by Maribel Brooks MA) Hypertension Syncope and collapse Atrioventricular block, first degree Syncope Hospital discharge follow-up Acute leg pain Facial paresthesia Swelling of lower extremity Right leg swelling Hypertensive urgency Constipation Frequent UTI Edema of left lower leg Leg cramping Primary hypertension Uncontrolled hypertension Left hip pain Left-sided weakness Left sided sciatica Adult general medical exam Screening for breast cancer Osteoarthritis of right hip Hospital discharge follow-up Vitamin D deficiency Hypercalcemia Multiple lacunar infarcts Hearing loss Urge urinary incontinence GERD (gastroesophageal reflux disease) COPD (chronic obstructive pulmonary disease) Dyslipidemia Hypercalcemia Osteoporosis History of ductal carcinoma in situ (DCIS) of breast Surgical History (Reviewed 08/20/24 @ 15: by Maribel Brooks MA) History of right hip replacement History of colonoscopy History of lumpectomy of right breast History of pubovaginal sling H/O right inguinal hernia repair Family History (Reviewed 08/20/24 @ 15: by Maribel Brooks MA) Father Heart failure CVD (cardiovascular disease) Mother Breast cancer Social History Household Members: None Household Members Other:: alone Housing: House Do you presently have visiting nurse or other home services: No Alcohol intake: former Patient Tobacco Use Status: Former Tobacco user Tobacco use type: Cigarette e-Cigarette/Vaping Use: Never Used Second Hand Smoke Exposure: No Advance Directives Date on File: 10/19/21 service: No Current occupational status: retired Cognitive needs: Yes (CANE) Hearing needs: Yes (hearing aide) Vision needs: No (glaases) Review of Systems Const All systems reviewed & are unremarkable except as noted in HPI and below Physical Exam Vital Signs: Last Vital Signs Pulse 61 08/20/24 15:04 BP 110/50 L 08/20/24 15:04 Pulse Ox 99 08/20/24 15:04 Oxygen Delivery Method Room Air 08/20/24 15:04 BMI result Body Mass Index 20.1 Const General: comfortable and no acute distress Orientation/consciousness: patient oriented x3 HEENT Head: Yes normocephalic Mouth: Normal oral and palatal mucosa present Eyes EOM: EOMs intact bilaterally Neck Neck: Yes supple Resp Auscultation: clear to auscultation bilaterally Cardio Jugular venous distension: no JVD Rate: regular rate GI Palpation (GI): Soft to palpation Auscultation: normal bowel sounds General: Yes no CVA tenderness Back/Spine/Pelvis Back: no CVA tenderness Skin General skin exam: no rashes or lesions noted Neuro General: patient oriented x3 and moves all extremities Extrem General: Yes no pedal edema Results Reviewed Nephrology Results: Hgb 8.0 g/dl (12.0-16.0) L 08/18/24 WBC 5.7 X10*3/uL (4.8-10.8) 08/18/24 Plt Count 307 X10*3/uL (160-400) 08/18/24 Sodium 142 mmol/L (135-145) 06/14/24 Potassium 4.6 mmol/L (3.3-5.1) 06/14/24 Chloride 111 mmol/L (96-108) H 06/14/24 Carbon Dioxide 26 mmol/L (22-29) 06/14/24 BUN 22 mg/dL (9-16) H 06/14/24 Creatinine 0.82 mg/dL (0.5-1.4) 06/14/24 Calcium 9.7 mg/dL (8.4-10.2) 06/14/24 Assessment & Plan Assessment & Plan (1) Hypertension: Code(s): I10 - Essential (primary) hypertension Category: Medical Qualifiers: Hypertension type: essential hypertension Qualified Code(s): I10 - Essential (primary) hypertension (2) Renal cyst: Code(s): N28.1 - Cyst of kidney, acquired Category: Medical Plan Chichi has longstanding hypertension. She has history of CVA. She is not known to have any significant proteinuria. Her renal functions are at baseline. Her serum potassium is normal. She is compliant with her medications. She monitors her blood pressure and has been a bit low. She avoids nonsteroidal anti- inflammatory medications and maintain good hydration.Her renal cyst has been asymptomatic. She maintains a low-sodium diet. I did not make any medication changes today. All questions answered. Follow-up given Coding Level of Care Code Est Pt Level 4 (18923) Diagnoses Essential hypertension I10 Hypertension type: essential hypertension Renal cyst N28.1
[2024-08-20 15:04] VITALS: BP 110/50; PULSE 61; O2SAT 99; BMI 20.1
== END 2024-08-20 15:29 | disposition home or self-care (01) ==
LOC: HO.HKA 14:47
PROVIDERS: PCP Internal Medicine; Visit Provider Internal Medicine Nephrology
DX: I10 Essential (primary) hypertension (principal); N28.1 Cyst of kidney, acquired
CPT/HCPCS: 99214

== ENCOUNTER → 2024-08-20 14:46 | Outpatient (BNVA) | payer MEDICARE, OTHER, SELFPAY | PROVIDERS: PCP Internal Medicine; Visit Provider Internal Medicine Nephrology | DX: I10 Essential (primary) hypertension (principal); N28.1 Cyst of kidney, acquired | CPT/HCPCS: 99212 ==

== ENCOUNTER 2024-08-30 13:44 | Outpatient (REF) | payer MEDICARE, OTHER, SELFPAY ==
--- NOTE | ~2024-08-30 | XR_ITS ---
EXAMINATION: XR CERVICAL SPINE CLINICAL INFORMATION: M54.2 - Cervicalgia COMPARISON: None available. TECHNIQUE: 3 views of the cervical spine were obtained. FINDINGS: Multilevel endplate sclerosis subchondral cyst formation and decreased intervertebral disc height and marginal osteophyte formation from C2 to C7. Questionable grade 1 retrolisthesis C2-3 versus artifactual due to patient's positioning No lytic or blastic lesions. Calcified plaque aortic arch.. XR/XR cervical spine 2V IMPRESSION: Multilevel cervical spondylosis. No gross change since prior CT cervical spine. Electronically signed by: Bo Pinzon MD 08/30/2024 03:26 PM EDT
--- NOTE | ~2024-08-30 | XR_ITS ---
EXAMINATION: XR SHOULDER, RIGHT CLINICAL INFORMATION: M25.511 - Pain in right shoulder COMPARISON: None available. TECHNIQUE: AP external rotation, Grashey, scapular Y, and axillary views of the right shoulder. FINDINGS: Subchondral cyst formation at the greater tuberosity/head right humerus. No acute cortical disruption or malalignment. No metallic or radiopaque foreign body. No lytic or blastic lesions. XR/XR shoulder RT min 2V IMPRESSION: Degenerative changes without acute fracture or dislocation. Electronically signed by: Bo Pinzon MD 08/30/2024 03:23 PM EDT
--- OUTSIDE RECORDS SUMMARY | 2024-08-30 14:44 | XMS_ITS | Clinical Summary ---
Author Organization [facility] Address [address] [place] [place] [address] Phone Care Team Providers Care Supervisor Paste Plant Name Role Phone Shirin Magana MD Primary Care Provider [phone] Allergies Active Allergy Reactions Criticality Noted Date [...] age to complete this topic Insurance Medicare [facility] Medicare [facility] Care Teams Supervisor Paste Plant Relationship Specialty Start Date End Date Shirin Magana MD [address] [place], [place] PCP - General Internal Medicine 02/26/21
== END 2024-08-30 13:45 | disposition home or self-care (01) ==
LOC: HO.XRAY 13:44
PROVIDERS: PCP Internal Medicine; Visit Provider Internal Medicine
DX: M25.511 Pain in right shoulder (principal); M54.2 Cervicalgia; D50.9 Iron deficiency anemia, unspecified; J44.9 Chronic obstructive pulmonary disease, unspecified; M81.0 Age-related osteoporosis without current pathological fracture; E78.5 Hyperlipidemia, unspecified; Z86.73 Personal history of transient ischemic attack (TIA), and cerebral infarction without residual deficits; Z79.82 Long term (current) use of aspirin; Z79.899 Other long term (current) drug therapy
CPT/HCPCS: 72040; 73030; 99212

== ENCOUNTER 2024-08-30 13:44 | Outpatient (AMB) | payer MEDICARE, OTHER, SELFPAY ==
--- NOTE | 2024-08-30 13:48 | MHC.PC.OV ---
Vital Signs 08/30/24 13:50 Height 4 ft 9 in Weight 90 lb BMI 19.5 BP 132/60 Blood Pressure Location Lt brachial Position Sitting Pulse 62 Pulse Source Pulse Oximeter Pulse Oximetry (%) 99 Oxygen Delivery Method Room Air Intake Visit Reasons: bp Intake Note: Patient here for a follow up BP Fur Scraper Required: No Accompanied by: Self / Same As Patient Allergies cephalexin [Keflex] Allergy (Intermediate, Verified 08/30/24 14:13) Unknown tetracycline [Tetracycline] Allergy (Intermediate, Verified 08/30/24 14:13) TONGUE SWOLLEN Medication List - Last Reconciled 08/30/24 by Shirin Duron MD acetaminophen ER (Tylenol Arthritis Pain) 1,300 mg PO Q6H PRN amlodipine 2.5 mg PO BEDTIME 90 days aspirin (Adult Aspirin Regimen) 81 mg PO DAILY carvedilol 6.25 mg PO BID 90 days ezetimibe 10 mg PO BEDTIME lansoprazole 30 mg PO DAILY@0630 losartan 100 mg PO DAILY polyethylene glycol 3350 17 grams PO DAILY PRN rosuvastatin 10 mg PO BEDTIME tiotropium bromide 1.25 mcg/actuation (Spiriva Respimat) 2 puffs inhalation DAILY vibegron (Gemtesa) 75 mg PO DAILY 90 days walker Pediatric walker Tobacco use date assessed: 04/29/24 Dental Screening Dental Screen Date: 04/29/24 Did you have a dental visit in the last 12 months?: No Did you have a dental problem in the last 6 months where you did not have access to dental care?: No Was dental information given to patient?: No HPI HPI Comments History of Present Illness Details The patient is an 89-year-old female presenting for a follow-up on multiple chronic conditions, including essential hypertension, COPD, anemia, and osteoporosis. She reports home monitoring of her blood pressure but has concerns due to fluctuations and occasional elevated readings. Within the office today, her blood pressure reading was 132/60 mmHg. She also experiences neck and shoulder pain suspected to influence her blood pressure. A known history of anemia has warranted hematology visits every three weeks, with the last hemoglobin recorded at 8 g/dL. For COPD management, she utilizes Spiriva though reports forgetting doses. She maintains cardiovascular health with amlodipine, losartan, carvedilol, and baby aspirin following a previous stroke. Gemtesa is prescribed for urinary incontinence. Her osteoporosis, confirmed by bone densitometry, is treated with biannual Prolia injections as directed by endocrinology. Although her past CT angiogram revealed no acute issues, she has mild aortic stenosis, which requires cardiology follow-up. The patient also expressed concern over unintentional weight loss observed in recent years, prompting plans for fasting blood work to evaluate lipid levels and glucose tolerance. [facility] Medical History (Updated 08/30/24 @ 14:25 by Shirin Duron MD) Hypertension Syncope and collapse Atrioventricular block, first degree Syncope Hospital discharge follow-up Acute leg pain Facial paresthesia Swelling of lower extremity Right leg swelling Hypertensive urgency Constipation Frequent UTI Edema of left lower leg Leg cramping Primary hypertension Uncontrolled hypertension Left hip pain Left-sided weakness Left sided sciatica Adult general medical exam Screening for breast cancer Osteoarthritis of right hip Hospital discharge follow-up Vitamin D deficiency Hypercalcemia Multiple lacunar infarcts Hearing loss Urge urinary incontinence GERD (gastroesophageal reflux disease) COPD (chronic obstructive pulmonary disease) Dyslipidemia Hypercalcemia Osteoporosis History of ductal carcinoma in situ (DCIS) of breast Surgical History History of right hip replacement History of colonoscopy History of lumpectomy of right breast History of pubovaginal sling H/O right inguinal hernia repair Family History Father Heart failure CVD (cardiovascular disease) Mother Breast cancer Social History Household Members: None Household Members Other:: alone Housing: House Do you presently have visiting nurse or other home services: No Alcohol intake: former Patient Tobacco Use Status: Former Tobacco user Tobacco use type: Cigarette e-Cigarette/Vaping Use: Never Used Second Hand Smoke Exposure: No Advance Directives Date on File: 10/19/21 service: No Current occupational status: retired Cognitive needs: Yes (CANE) Hearing needs: Yes (hearing aide) Vision needs: No (glaases) Questionnaire Thrive Questionnaire Date Thrive assessed: 05/17/24 LEMUEL-7 AMB Questionnaire LEMUEL-7 Date LEMUEL - 7 assessed: 04/29/24 Source: Developed by Drs. Lewis Lopez, Dixie Sharma, Clay Stevenson and colleagues, with an educational chucky from [email or web address]. Review of Systems Const All systems reviewed & are unremarkable except as noted in HPI and below Card Denies chest pain at rest, Denies chest pain with activity, Denies edema, Denies irregular heart rhythm, Denies claudication, Denies dyspnea, Denies dyspnea on exertion, Denies orthopnea, Denies paroxysmal nocturnal dyspnea and Denies slow heart rate Resp Denies cough, Denies dyspnea and Denies dyspnea on exertion GI Denies abdominal pain, Denies change in bowel habits, Denies excessive flatus, Denies nausea and Denies vomiting Neuro Denies behavioral changes and Denies lack of coordination Psych Denies behavioral changes Physical exam (Primary Care) Vital Signs: Last Vital Signs Pulse 62 08/30/24 13:50 BP 132/60 08/30/24 13:50 Pulse Ox 99 08/30/24 13:50 Oxygen Delivery Method Room Air 08/30/24 13:50 BMI result Body Mass Index 19.5 BMI Assessment/Plan discussion: Low BMI Low, Plan discussed: lifestyle, increase calorie intake and dietary Tobacco/Smoking Status: Tobacco use Status Tobacco use date assessed 04/29/24 08/30/24 13:48 Patient Tobacco Use Status Former Tobacco user 08/30/24 13:48 Tobacco use type Cigarette 08/30/24 13:48 e-Cigarette/Vaping Use Never Used 08/30/24 13:48 Thrive Assessment: Date of Thrive Assessment Date Thrive assessed 05/17/24 08/30/24 13:48 Neck Neck: Yes normal visual inspection and Yes supple Resp Effort & Inspection: normal respiratory effort Auscultation: clear to auscultation bilaterally Cardio Jugular venous distension: no JVD Rate: regular rate Rhythm: regular rhythm Heart sounds: S1 normal heart sound present and S2 normal heart sound present Coding Level of Care Code Est Pt Level 4 (36231) Complex EM visit Add On G2211 Diagnoses Right shoulder pain M25.511 Neck pain M54.2 Iron deficiency anemia D50.9 Chronic obstructive pulmonary disease, unspecified COPD type J44.9 COPD type: unspecified COPD Multiple lacunar infarcts I63.81 Age-related osteoporosis without current pathological fracture M81.0 Osteoporosis type: age-related Presence of current pathological fracture: without current pathological fracture Dyslipidemia E78.5 Time Spent (min) 22 Assessment & Plan Assessment & Plan (1) Right shoulder pain: Code(s): M25.511 - Pain in right shoulder Category: Medical (2) Neck pain: Code(s): M54.2 - Cervicalgia Category: Medical (3) Iron deficiency anemia: Code(s): D50.9 - Iron deficiency anemia, unspecified Category: Medical (4) COPD (chronic obstructive pulmonary disease): Code(s): J44.9 - Chronic obstructive pulmonary disease, unspecified Category: Medical Qualifiers: COPD type: unspecified COPD Qualified Code(s): J44.9 - Chronic obstructive pulmonary disease, unspecified (5) Multiple lacunar infarcts: Code(s): I63.81 - Other cerebral infarction due to occlusion or stenosis of small artery Category: Medical (6) Osteoporosis: Code(s): M81.0 - Age-related osteoporosis without current pathological fracture Category: Medical Qualifiers: Osteoporosis type: age-related Presence of current pathological fracture: without current pathological fracture Qualified Code(s): M81.0 - Age-related osteoporosis without current pathological fracture (7) Dyslipidemia: Code(s): E78.5 - Hyperlipidemia, unspecified Category: Medical Plan We addressed the patient?s management of her chronic conditions, including essential hypertension, COPD, and osteoporosis. The patient had satisfactory blood pressure during the visit with continued monitoring advised. Radiographic studies are ordered to investigate neck and shoulder pain. Her anemia requires close monitoring, now adjusted to every three weeks. For respiratory health, user adherence to Spiriva is essential, and an effort will be made to improve compliance. Cardiovascular follow-up and evaluation continue per cardiology's guidance with regard to her history of lacunar infarcts and mild aortic stenosis. Fasting labs for glucose and lipid profiles are planned, addressing concerns regarding recent weight changes. Osteoporosis treatment with Prolia is ongoing, guided by endocrinology. Patient was informed and verbally consented to the use of an ambient scribe for clinic note documentation during this visit. I discussed with the patient the importance of diligent management of her multiple chronic health conditions. For hypertension, she is encouraged to keep up with regular home monitoring and consider inspection of her home device for accuracy. She admitted occasional forgetfulness with her COPD inhaler, so adherence strategies were suggested. On the account of a potential connection between neck pain and abnormal blood pressure readings, appropriate shoulder and neck imaging is planned. She is aware of the need for her anemia to be monitored closely. We evaluated her current and future appointments with specialists, including hematology and cardiology, to maintain care consistency. The plan for fasting blood tests will aid in monitoring and potentially diagnosing underlying reasons for unintended weight loss, such as diabetes. I reassured her that ongoing treatment for osteoporosis is being effectively managed, and we would follow up as necessary based on imaging and labs. The overall strategy was reviewed to address specific health risks while encouraging her proactive participation. Orders: Orders Comprehensive Nathalie. Panel Fast Today I10 - Essential (primary) hypertension XR cervical spine 2V Today M54.2 - Cervicalgia XR shoulder RT min 2V Today M25.511 - Pain in right shoulder Lipid Panel Today E78.5 - Hyperlipidemia, unspecified Patient Instructions: - Continue taking prescribed medications as directed, and try to use reminders for the Spiriva inhaler to aid in compliance. - Monitor home blood pressure regularly and ensure that your monitor is functioning correctly. - Follow through with scheduled hematology appointments every three weeks. - Get fasting labs done for cholesterol and glucose to evaluate health status. - Report any new or worsening symptoms to the clinic. - Use comfortable footwear to aid in mobility and reduce discomfort. - Follow up with imaging orders for x-rays of the neck and shoulder. - Keep the upcoming cardiology and endocrinology appointments as scheduled. - Maintain a healthy diet and stay active to support general well-being and manage weight.
[2024-08-30 13:50] VITALS: BP 132/60; PULSE 62; O2SAT 99; BMI 19.5
--- OUTSIDE RECORDS SUMMARY | 2024-08-30 14:02 | XMS_ITS | Clinical Summary ---
Author Organization [facility] Address [address] [place] [address] [place] [address] Phone Care Team Providers Care Legal Billing Coordinator Name Role Phone Shirin Magana MD Primary Care Provider [phone] Allergies Active Allergy Reactions Criticality Noted Date [...] to complete this topic Insurance Medicare [facility] Medicare [facility] Care Teams Legal Billing Coordinator Relationship Specialty Start Date End Date Shirin Magana MD [address] [place], [place] PCP - General Internal Medicine 02/26/21
--- OUTSIDE RECORDS SUMMARY | 2024-08-30 14:02 | XMS_ITS | Clinical Summary ---
Author Organization [facility] Address [address] [place] [address] Care Team Providers Care Sr. Manager Marketing Name Role Phone Yamil Meraz MD Primary [...] total) by mouth. 0 07/31/2023 Active Tiotropium Tucker Monohydrate (Spiriva Respimat) 1.25 MCG/ACT AERS Inhale [...] age to complete this topic Care Teams Sr. Manager Marketing Relationship Specialty Start Date End Date Yamil Meraz MD PCP - General Internal Medicine 09/04/23
== END 2024-08-30 14:28 | disposition home or self-care (01) ==
LOC: HO.HMCH 13:45
PROVIDERS: PCP Internal Medicine; Visit Provider Internal Medicine
DX: M25.511 Pain in right shoulder (principal); J44.9 Chronic obstructive pulmonary disease, unspecified; I63.81 Other cerebral infarction due to occlusion or stenosis of small artery; M54.2 Cervicalgia; D50.9 Iron deficiency anemia, unspecified; M81.0 Age-related osteoporosis without current pathological fracture; E78.5 Hyperlipidemia, unspecified

== ENCOUNTER → 2024-08-30 14:46 | Outpatient (BNV) | payer MEDICARE, OTHER, SELFPAY | PROVIDERS: PCP Internal Medicine; Visit Provider Radiology Diagnostic Radiology | DX: M54.2 Cervicalgia (principal); M25.511 Pain in right shoulder | CPT/HCPCS: 72040; 73030 ==

== ENCOUNTER → 2024-11-01 13:02 | Outpatient (REF) | payer MEDICARE, OTHER, SELFPAY ==
--- NOTE | 2024-11-01 13:05 | CA_ITS ---
Transthoracic Echocardiogram Patient (Last, First, Middle): Chichi Cintron M Gender: Female Date of : 1935 Age: 89 Procedure Date: 11/01/2024 Procedure Type: Transthoracic Echocardiogram Location: OP Height: 144.78 cm Weight: 40.82 kg BSA: 1.28 m2 Heart Rate: 54 bpm BP: 132 / 60 mmHg Telemarketing Agent: RADHA Referring MD: Delvis Patel NP Symptoms: R55 - Syncope and collapse Study Quality: Adequate ECG Rhythm: Bradycardia Conclusions: - The left ventricular systolic function is normal. The calculated ejection fraction is 66% by biplane method. - There is moderate mitral annular calcification. Findings Left Ventricle Normal left ventricular cavity size. The left ventricular systolic function is normal. The calculated ejection fraction is 66% by biplane method. There is no evidence of regional wall motion abnormalities. Diastolic function is normal for age. There is moderate septal asymmetric hypertrophy. Right Ventricle Normal right ventricular cavity size. There is mildly decreased right ventricular systolic function. Atria Both atria are normal in size. Aortic Valve There is a normal trileaflet aortic valve. There is mild calcification of the aortic valve. There is no aortic valve stenosis. There is no aortic valve regurgitation. Mitral Valve There is moderate mitral annular calcification. There is trace mitral valve regurgitation. There is no mitral valve stenosis. Pulmonic Valve The pulmonic valve is likely normal. Tricuspid Valve Normal tricuspid valve structure. There is mild tricuspid valve regurgitation. There is no evidence of pulmonary hypertension. Great Vessels The asc aorta is normal in size. Moderate plaque is seen in the sinuses of Valsalva. Venous The inferior vena cava is normal in size and collapses greater than 50% with inspiration. Pericardium/Pleural There is no evidence of pericardial effusion. Prior Study Comparison No significant change compared to prior study dated: 12/22/2023. Measurements 2D Linear Measurements IVSd: 1.42 0.6-0.9/0.6-1.0 cm LVIDd: 3.09 3.9-5.3/4.2-5.9 cm LVIDd Index: 2.41 2.4-3.2/2.2-3.1 cm/m2 LVIDs: 1.93 2.0-3.6 cm LVPWd: 0.93 0.7-1.1 cm LA Diam: 2.80 2.7-3.8/3.0-4.0 cm LAIDs Index: 2.19 1.5-2.3 cm/m2 LV Mass: 136.65 67-162/88-224 g LV Mass Index: 106.76 43-95/49-115 g/m2 LVOT Diam: 1.80 3.0+(-)1.3 cm 2D Systolic Function EF 4C: 62.30 >55% EF 2C: 68.50 >55% EF BiP: 66.00 >55% Mitral Valve MV Pk E: 1.08 MV PK A: 1.48 MV Decel Time: 349.00 E/A: 0.70 E'Lateral: 6.09 E'Medial: 4.90 E/E' Med: 22.00 E/E' Lat: 17.70 PHT: 102.00 MVA PHT: 2.16 Decel [place]: 3.11 Aortic Valve AoV Pk Naga: 1.46 AoV Mn Naga: 0.96 AoV VTI: 0.35 AoV Pk Grad: 9.00 Aov Mn Grad: 4.00 YADIRA Cont.VTI: 1.75 LVOT LVOT Pk Naga: 0.93 LVOT Mn Naga: 0.66 LVOT VTI: 0.24 LVOT Pk Grad: 3.00 LVOT Mn Grad: 2.00 LVOT Diam: 1.80 LVOT Area: 2.54 Diastolic Function MV Pk E: 1.08 MV Pk A: 1.48 E/A: 0.70 E'Medial: 4.90 E/E' Med: 22.00 E' Laterial: 6.09 E/E' Lat: 17.70 Right Ventricle TAPSE (mm): 20.00 TVS' Naga: 8.59 Tricuspid Valve TR Pk Naga: 2.36 TR Pk Grad: 22.00 RA Press: 3.00 RVSP: 25.00 Great Vessels Aorta Sinus of Valsalva: 3.36 2.0-3.5 cm Ao Asc: 3.00 2.1-3.4 cm Updated in Other Vendor System with Status of Final Joseph La MD electronically signed on 11/02/2024 10:32:35 AM with status of Final
--- OUTSIDE RECORDS SUMMARY | 2024-11-01 14:01 | XMS_ITS | Clinical Summary ---
Author Organization [facility] Address [address] [place] [address] Care Team Providers Care Vocational Education Teacher Name Role Phone Yamil Meraz MD Primary [...] total) by mouth. 0 07/31/2023 Active Tiotropium [place] Monohydrate (Spiriva Respimat) 1.25 MCG/ACT AERS Inhale [...] 65 09/05/2023 11:53 AM EDT Temperature 37.4 C (99.3 F) 09/05/2023 11:53 AM EDT Respiratory Rate 16 09/05/2023 11:53 AM EDT [...] 5 season) 2023 06/16/2020 Influenza Vaccine (#1) 2024 Hepatitis B Vaccines Aged Out No long er eligible based on patient's age to complete this topic RSV Ped < 20 months Aged Out No longe r eligible based on patient's age to complete this topic Care Teams Vocational Education Teacher Relationship Specialty Start Date End Date Yamil Meraz MD PCP - General Internal Medicine 09/04/23
--- OUTSIDE RECORDS SUMMARY | 2024-11-01 14:01 | XMS_ITS | Clinical Summary ---
Author Organization [facility] Address [address] [place] [address] [place] [address] Phone Care Team Providers Care Welder Metal Fab Name Role Phone Shirin Magana MD Primary Care Provider [phone] Allergies Active Allergy Reactions Criticality Noted Date [...] of 2 - PCV) 1954 Influenza Vaccine (#1) 2024 Hepatitis B Vaccine Aged Out No longe r eligible based on patient's age to complete this topic Insurance Medicare [facility] Medicare [facility] Care Teams Welder Metal Fab Relationship Specialty Start Date End Date Shirin Magana MD [address] [place], [place] PCP - General Internal Medicine 02/26/21
== END ==
LOC: HO.CARD 13:02
PROVIDERS: PCP Internal Medicine
DX: R55 Syncope and collapse (principal)
CPT/HCPCS: 93306

== ENCOUNTER → 2024-11-01 13:05 | Outpatient (BNV) | payer MEDICARE, OTHER, SELFPAY | PROVIDERS: PCP Internal Medicine; Visit Provider Internal Medicine | DX: I42.2 Other hypertrophic cardiomyopathy (principal); I34.81 Nonrheumatic mitral (valve) annulus calcification; I35.8 Other nonrheumatic aortic valve disorders; I36.1 Nonrheumatic tricuspid (valve) insufficiency | CPT/HCPCS: 93306 ==

== ENCOUNTER 2024-11-19 10:37 | Outpatient (AMB) | payer MEDICARE, OTHER, SELFPAY ==
--- OUTSIDE RECORDS SUMMARY | 2024-11-19 10:45 | XMS_ITS | Clinical Summary ---
Author Organization [facility] Address [address] [place] [phone] Phone Care Team Providers Care Briquette Operator Name Role Phone Unavailable Primary Care Provider Unavailabl e Social History Tobacco Use Types Packs/Day Years Used Date Smoking Tobacco: Never Assessed Education Answer Date Recorded Are you interested in more education? Not on maryse e 06/13/2023 Are you concerned about learning? Not on file 06/13/2023 No 06/13/2023 No 06/13/2023 Digital Access Answer Date Recorded No 06/13/2023 No 06/13/2023 Reliable internet access at home? Not on file 06/13/2023 Device with a working camera? Not on file Comments Unknown Sex and Gender Information Value Date Recorded Sex Assigned at Not on file Legal Sex Female 1:55 PM EST Gender Identity Not on file Sexual Orientation Not on file Plan of Treatment Not on file Medical Devices Not on file Additional Source Comments The information contained in this document represents components of the legal health record. It is not the complete legal health record.[facility]
--- OUTSIDE RECORDS SUMMARY | 2024-11-19 10:45 | XMS_ITS | Clinical Summary ---
Author Organization [facility] Address [address] [place] [address] [place] [address] Phone Care Team Providers Care Senior Project Architect Name Role Phone Shirin Magana MD Primary Care Provider [phone] Allergies Active Allergy Reactions Criticality Noted Date [...] age to complete this topic Insurance Medicare [facility] Care Teams Senior Project Architect Relationship Specialty Start Date End Date Shirin Magana MD [address] [place], [place] PCP - General Internal Medicine 02/26/21
--- OUTSIDE RECORDS SUMMARY | 2024-11-19 10:45 | XMS_ITS | Clinical Summary ---
Author Organization [facility] Address [address] [place] [address] Care Team Providers Care Assistant Professor Of Biochemistry Name Role Phone Yamil Meraz MD Primary [...] total) by mouth. 0 07/31/2023 Active Tiotropium [place] Monohydrate (Spiriva Respimat) 1.25 MCG/ACT AERS Inhale [...] age to complete this topic Care Teams Assistant Professor Of Biochemistry Relationship Specialty Start Date End Date Yamil Meraz MD PCP - General Internal Medicine 09/04/23
[2024-11-19 10:48] VITALS: BP 98/50; PULSE 60; O2SAT 99; BMI 19.0
--- NOTE | 2024-11-19 10:48 | HO.NEPHOV ---
Vital Signs 11/19/24 10:48 Height 4 ft 9 in Weight 88 lb BMI 19.0 BP 98/50 L Blood Pressure Location Rt brachial Position Sitting Pulse 60 Pulse Source Pulse Oximeter Pulse Oximetry (%) 99 Oxygen Delivery Method Room Air Intake Visit Reasons: 3 MO FU/ Conf Communications Tower Technician Required: No Accompanied by: Self / Same As Patient Allergies cephalexin (Keflex) Allergy (Intermediate, Verified 11/19/24 10:48) Unknown tetracycline (Tetracycline) Allergy (Intermediate, Verified 11/19/24 10:48) TONGUE SWOLLEN HPI Comments Details: I had the privilege of seeing Chichi in follow-up of her hypertension. She has history of cerebrovascular accident. She monitors her blood pressure closely. She denies any chest pain, dizziness, headache, visual disturbance, pedal edema. She monitors her blood pressure at home. Her blood pressure had been remaining close to goal. She avoids nonsteroidal anti-inflammatory medication and chief with a low-sodium diet. She has history of renal cyst. She has no flank pain, hematuria or any other urinary symptoms. She had anemia & has been seen by Heme Onc and gets PRBC. She had a syncope in Apr and her BP medications had been adjusted( D/Álvaro Chlorthalidone and carvedilol was reduced) [facility] Medical History Hypertension Syncope and collapse Atrioventricular block, first degree Syncope Hospital discharge follow-up Acute leg pain Facial paresthesia Swelling of lower extremity Right leg swelling Hypertensive urgency Constipation Frequent UTI Edema of left lower leg Leg cramping Primary hypertension Uncontrolled hypertension Left hip pain Left-sided weakness Left sided sciatica Adult general medical exam Screening for breast cancer Osteoarthritis of right hip Hospital discharge follow-up Vitamin D deficiency Hypercalcemia Multiple lacunar infarcts Hearing loss Urge urinary incontinence GERD (gastroesophageal reflux disease) COPD (chronic obstructive pulmonary disease) Dyslipidemia Hypercalcemia Osteoporosis History of ductal carcinoma in situ (DCIS) of breast Surgical History History of right hip replacement History of colonoscopy History of lumpectomy of right breast History of pubovaginal sling H/O right inguinal hernia repair Family History Father Heart failure CVD (cardiovascular disease) Mother Breast cancer Social History Household Members: None Household Members Other:: alone Housing: House Do you presently have visiting nurse or other home services: No Alcohol intake: former Patient Tobacco Use Status: Former Tobacco user Tobacco use type: Cigarette e-Cigarette/Vaping Use: Never Used Second Hand Smoke Exposure: No Advance Directives Date on File: 10/19/21 service: No Current occupational status: retired Cognitive needs: Yes (CANE) Hearing needs: Yes (hearing aide) Vision needs: No (glaases) Review of Systems Const All systems reviewed & are unremarkable except as noted in HPI and below Physical Exam Vital Signs: Last Vital Signs Pulse 60 11/19/24 10:48 BP 98/50 L 11/19/24 10:48 Pulse Ox 99 11/19/24 10:48 Oxygen Delivery Method Room Air 11/19/24 10:48 BMI result Body Mass Index 19.0 Const General: comfortable and no acute distress Orientation/consciousness: patient oriented x3 HEENT Head: Yes normocephalic Mouth: Normal oral and palatal mucosa present Eyes EOM: EOMs intact bilaterally Neck Neck: Yes supple Resp Auscultation: clear to auscultation bilaterally Cardio Jugular venous distension: no JVD Rate: regular rate GI Palpation (GI): Soft to palpation Auscultation: normal bowel sounds General: Yes no CVA tenderness Back/Spine/Pelvis Back: no CVA tenderness Skin General skin exam: no rashes or lesions noted Neuro General: patient oriented x3 and moves all extremities Extrem General: Yes no pedal edema Results Reviewed Nephrology Results: Hgb, (12.0-16.0) 10.1 g/dl L Δ 11/10/24 WBC, (4.8-10.8) 6.7 X10*3/uL 11/10/24 Plt Count, (160-400) 305 X10*3/uL 11/10/24 Sodium, (135-145) 142 mmol/L 06/14/24 Potassium, (3.3-5.1) 4.6 mmol/L 06/14/24 Chloride, (96-108) 111 mmol/L H 06/14/24 Carbon Dioxide, (22-29) 26 mmol/L 06/14/24 BUN, (9-16) 22 mg/dL H 06/14/24 Creatinine, (0.5-1.4) 0.82 mg/dL 06/14/24 Calcium, (8.4-10.2) 9.7 mg/dL 06/14/24 Assessment & Plan Assessment & Plan (1) Hypertension: Code(s): I10 - Essential (primary) hypertension Category: Medical Qualifiers: Hypertension type: essential hypertension Qualified Code(s): I10 - Essential (primary) hypertension Plan Chichi has longstanding hypertension. She has history of CVA. She is not known to have any significant proteinuria. Her renal functions are at baseline. Her serum potassium is normal. She is compliant with her medications. She monitors her blood pressure and has been a bit low. She avoids nonsteroidal anti-inflammatory medications and maintain good hydration.Her renal cyst has been asymptomatic. She maintains a low-sodium diet. I did not make any medication changes today but shall cut back on carvedilol if her BP drops . All questions answered. Follow-up given Coding Level of Care Code Est Pt Level 4 (03760) Diagnoses Essential hypertension I10 Hypertension type: essential hypertension
== END 2024-11-19 11:00 | disposition home or self-care (01) ==
LOC: HO.HKA 10:37
PROVIDERS: PCP Internal Medicine; Visit Provider Internal Medicine Nephrology
DX: I10 Essential (primary) hypertension (principal)
CPT/HCPCS: 99214

== ENCOUNTER → 2024-11-19 10:37 | Outpatient (BNVA) | payer MEDICARE, OTHER, SELFPAY | PROVIDERS: PCP Internal Medicine; Visit Provider Internal Medicine Nephrology | DX: I10 Essential (primary) hypertension (principal); Z86.73 Personal history of transient ischemic attack (TIA), and cerebral infarction without residual deficits | CPT/HCPCS: 99212 ==

== ENCOUNTER 2024-12-10 09:08 | Outpatient (REF) | payer MEDICARE, OTHER, SELFPAY ==
--- OUTSIDE RECORDS SUMMARY | 2024-12-10 09:18 | XMS_ITS | Clinical Summary ---
Author Organization [facility] Address [address] [place] [address] Care Team Providers Care Line Maintenance Supervisor Name Role Phone Yamil Meraz MD Primary [...] total) by mouth. 0 07/31/2023 Active Tiotropium [place] Monohydrate (Spiriva Respimat) 1.25 MCG/ACT AERS Inhale [...] age to complete this topic Care Teams Line Maintenance Supervisor Relationship Specialty Start Date End Date Yamil Meraz MD PCP - General Internal Medicine 09/04/23
--- OUTSIDE RECORDS SUMMARY | 2024-12-10 09:18 | XMS_ITS | Clinical Summary ---
Author Organization [facility] Address [address] [place] [address] [place] [address] Phone Care Team Providers Care Special Delivery Clerk Name Role Phone Shirin Magana MD Primary Care Provider [phone] Allergies Active Allergy Reactions Criticality Noted Date [...] Insurance Medicare [facility] Care Teams Special Delivery Clerk Relationship Specialty Start Date End Date Shirin Magana MD [address] [place], [place] PCP - General Internal Medicine 02/26/21
--- OUTSIDE RECORDS SUMMARY | 2024-12-10 09:18 | XMS_ITS | Clinical Summary ---
Author Organization [facility] Address [address] [address] Phone Care Team Providers Care Meat Selector Name Role Phone Unavailable Primary Care Provider [...] It is not the complete legal health record.[facility]
--- NOTE | 2024-12-10 10:01 | P.PNHO-ONC_ITS ---
Medical Summary - Medical Summary Date of Service: 12/10/24 Chief complaint: Follow-up Primary Care Provider: Shirin Duron MD Medical Summary: Diagnosis: Normocytic anemia 2023 Gradually worsening anemia. Since 2021 her hemoglobin has gradually declined from 11.8-9.5 gram/dL in May 2023. She suffered a stroke in 2021 and says that since then she has been eating less and losing weight. She has no taste or appetite for food. She lives alone at home and manages all ADLs except driving. She denies abdominal pain, hematochezia, melena or hematuria. She denies any chest pain or shortness of breath. No dizziness or palpitations. Her chief concern is right hip pain and she is hoping to get her right hip replaced. She had her 1st fall in May 2023 but did not suffer any fractures. She received a blood transfusion in her 20s after a miscarriage. She has been for over 30 years. She used to drink wine with her meals but stopped after her stroke. She smoked in the remote past. Biomass Power Plant Superintendent Utilized?: No - Latvian Speaking Interval History Interval history: Ms. Cintron is here in follow-up. 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 Her appetite and weight is about the same. She stopped taking oral iron supplementation as it is constipating her. Denies bright red blood per rectum, melena, abdominal pain, nausea, vomiting. Denies hematuria. Denies headaches or dizziness. [facility] Medical History: Medical History (Last Reviewed 08/30/24 @ 14:16 by Shirin Duorn MD) Acute leg pain Adult general medical exam Atrioventricular block, first degree Constipation COPD (chronic obstructive pulmonary disease) Dyslipidemia Edema of left lower leg Facial paresthesia Frequent UTI GERD (gastroesophageal reflux disease) Hearing loss History of ductal carcinoma in situ (DCIS) of breast Hospital discharge follow-up Hospital discharge follow-up Hypercalcemia Hypercalcemia Hypertension Hypertensive urgency Left hip pain Left sided sciatica Left-sided weakness Leg cramping Multiple lacunar infarcts Osteoarthritis of right hip Osteoporosis Primary hypertension Right leg swelling Screening for breast cancer Swelling of lower extremity Syncope Syncope and collapse Uncontrolled hypertension Urge urinary incontinence Vitamin D deficiency Family History: Family History (Last Reviewed 12/13/24 @ 11:04 by Ysabel Haque Jai) Father Heart failure CVD (cardiovascular disease) Mother Breast cancer Surgical History: Surgical History (Last Reviewed 12/13/24 @ 11:04 by BISHNU Barreto) H/O right inguinal hernia repair History of colonoscopy History of lumpectomy of right breast History of pubovaginal sling History of right hip replacement Social History: Social History (Last Reviewed 12/13/24 @ 11:04 by BISHNU Barreto) Living Situation History: Household Members: None Household Members Other:: alone Housing: House Do you presently have visiting nurse or other home services: No Tobacco History: Patient Tobacco Use Status: Former Tobacco user Tobacco use type: Cigarette e-Cigarette/Vaping Use: Never Used Second Hand Smoke Exposure: No Advance Directives: Advance Directives Date on File: 10/19/21 Occupation Assessmet: service: No Current occupational status: retired Home Medications and Allergies Home Medications ?Medication ?Instructions ?Recorded ?Confirmed ?Type aspirin 81 mg tablet,delayed 81 mg PO DAILY 02/24/20 12/13/24 History release (Adult Aspirin Regimen) acetaminophen 650 mg 1,300 mg PO Q6H PRN Pain (Scale 12/21/23 12/13/24 History tablet,extended release (Tylenol Score 1-3) Arthritis Pain) Allergies Allergy/AdvReac Type Severity Reaction Status Date / Time cephalexin (Keflex) Allergy Intermediate Unknown Verified 12/13/24 11:04 tetracycline (Tetracycline) Allergy Intermediate TONGUE Verified 12/13/24 11:04 SWOLLEN Exam - Constitutional Present: no acute distress - Routine HEENT Exam Head: Present: normal inspection Data - Labs Labs: Laboratory Tests 12/10/24 09:39 WBC 6.1 RBC 3.02 L Hgb 8.4 L Hct 26.2 L Plt Count 326 Assessment and Plan Patient Active problem list reviewed?: Yes (1) Iron deficiency anemia Status: Chronic - Time Spent With Patient Time Spent with Patient (in minutes): 0
== END 2024-12-10 09:09 | disposition home or self-care (01) ==
LOC: HO.LAB 09:08
PROVIDERS: PCP Internal Medicine; Visit Provider Internal Medicine
DX: Z13.89 Encounter for screening for other disorder (principal)

== ENCOUNTER 2024-12-13 10:58 | Outpatient (AMB) | payer MEDICARE, OTHER, SELFPAY ==
--- NOTE | 2024-12-13 10:59 | A.OFFVIS_ITS ---
Vital Signs 12/13/24 11:04 Height 4 ft 9 in Weight 88 lb 2.958 oz BMI 19.1 BP 100/42 L Blood Pressure Location Rt brachial Position Sitting Pulse 56 Pulse Source Pulse Oximeter Pulse Oximetry (%) 95 Oxygen Delivery Method Room Air Intake Visit Reasons: f/u osteoporosis / prolia injection Intake Note: Patient present today for Osteoporosis follow up and Prolia injection. Stone Mason Required: No Accompanied by: Self / Same As Patient Allergies cephalexin (Keflex) Allergy (Intermediate, Verified 12/13/24 11:04) Unknown tetracycline (Tetracycline) Allergy (Intermediate, Verified 12/13/24 11:04) TONGUE SWOLLEN Medication List - Last Reconciled 12/13/24 by Lewis Corbett MD acetaminophen ER (Tylenol Arthritis Pain) 1,300 mg PO Q6H PRN amlodipine 2.5 mg PO BEDTIME 90 days aspirin (Adult Aspirin Regimen) 81 mg PO DAILY carvedilol 6.25 mg PO BID 90 days ezetimibe 10 mg PO BEDTIME 90 days lansoprazole 30 mg PO DAILY@0630 losartan 100 mg PO DAILY polyethylene glycol 3350 17 grams PO DAILY PRN rosuvastatin 10 mg PO BEDTIME tiotropium bromide 1.25 mcg/actuation (Spiriva Respimat) 2 puffs inhalation DAILY vibegron (Gemtesa) 75 mg PO DAILY 90 days walker Pediatric walker HPI Comments Details: 89 YO Female with PMHx Osteoporosis is seen in F/U for the same. She has a longstanding history of hypercalcemia. It is unclear if a diagnosis of hyperparathyroidism was ever established. . She has been receiving Prolia injections intermittently since 2015. Her most recent Prolia was 05/23/2022. She tolerated this well. First diagnosed with Osteoporosis in 2007. Received treatment in the past with Fosamax for approximately 5 years. She tolerated this well, but it was stopped and she was given a drug holiday. She then began Prolia with Dr. Che, and had her first injection 11/22/2015. Dosing appears to have been intermittent since then, and it is unclear how many doses she has received. Her last dose was 05/2023 No history of pathologic fracture or ONJ. Has 1 servings of dietary calcium per day in the form of yogurt. She does not take a Calcium or Vitamin D supplement. Denies ever using PPI, anticoagulant, antiepileptic or glucocorticoid medication. Does no scheduled exercise. 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 Menses were regular. . Menopause was age 50. She did not use HRT. Denies history of Kidney stones: Family history of Osteoporosis in her Mother. UTD on dental cleanings and sees dentist every 6 months. She had a root canal approximately 3 months ago. DXA: 07/10/21 FINDINGS: AP SPINE L1-L4: Current: BMD 0.822 g/cm2, Z-score -0.6, T-score -3.0, osteoporosis, 3.8% increase from previous, 7.2% increase from baseline (<5% change is not significant). Prior: BMD 0.792 g/cm2. Baseline: BMD 0.767 g/cm2. LEFT FEMUR, NECK: Current: BMD 0.780 g/cm2, Z-score 0.9, T-score -1.9, osteopenia. Prior: BMD 0.713 g/cm2. Baseline: BMD 0.756 g/cm2. LEFT FEMUR, TOTAL: Current: BMD 0.813 g/cm2, Z-score 1.1, T-score -1.5, osteopenia, 12.0% increase from previous, 3.7% increase from baseline (<5% change is not significant). Prior: BMD 0.726 g/cm2. Baseline: BMD 0.784 g/cm2. LEFT FOREARM RADIUS 33%: Current: BMD 0.691 g/cm2, Z-score 1.2, T-score -2.1, osteopenia, 1.6% increase from baseline (<5% change is not significant). Baseline: BMD 0.680 g/cm2. Labs: Laboratory Tests 11/06/22 11/06/22 08:38 08:38 Creatinine 0.77 Estimated GFR > 60 25-OH Vitamin D Total 41.2 PTH Intact 55 Calcium (PTH Intact) 9.4 Not fragility fx since last visit . Still receiving Prolia Last DEXA 09/2023 FINDINGS: AP SPINE L1-L4: Current: BMD 0.858 g/cm2, Z-score -0.3, T-score -2.7, osteoporosis, 4.4% increase from previous, 11.9% increase from baseline (<5% change is not significant). Prior: BMD 0.822 g/cm2. Baseline: BMD 0.767 g/cm2. LEFT FOREARM RADIUS 33%: BMD 0.623 g/cm2, Z-score 0.6, T-score -2.9, osteoporosis, 9.8% decrease from previous, 8.4% decrease from baseline (<5% change is not significant). Prior: BMD 0.691 g/cm2. Baseline 06/29/2013: BMD 0.680 g/cm2. LEFT FEMUR, NECK: Current: BMD 0.741 g/cm2, Z-score 0.7, T-score -2.1, osteopenia. Prior: BMD 0.780 g/cm2. Baseline: BMD 0.756 g/cm2. LEFT FEMUR, TOTAL: Current: BMD 0.783 g/cm2, Z-score 1.0, T-score -1.8, osteopenia, 3.7% decrease from previous, 0.1% decrease from baseline (<5% change is not significant). Prior: BMD 0.813 g/cm2. Baseline: BMD 0.784 g/cm2. No fx since last visit . Due for Prolia injection today [facility] Medical History Hypertension Syncope and collapse Atrioventricular block, first degree Syncope Hospital discharge follow-up Acute leg pain Facial paresthesia Swelling of lower extremity Right leg swelling Hypertensive urgency Constipation Frequent UTI Edema of left lower leg Leg cramping Primary hypertension Uncontrolled hypertension Left hip pain Left-sided weakness Left sided sciatica Adult general medical exam Screening for breast cancer Osteoarthritis of right hip Hospital discharge follow-up Vitamin D deficiency Hypercalcemia Multiple lacunar infarcts Hearing loss Urge urinary incontinence GERD (gastroesophageal reflux disease) COPD (chronic obstructive pulmonary disease) Dyslipidemia Hypercalcemia Osteoporosis History of ductal carcinoma in situ (DCIS) of breast Surgical History History of right hip replacement History of colonoscopy History of lumpectomy of right breast History of pubovaginal sling H/O right inguinal hernia repair Family History Father Heart failure CVD (cardiovascular disease) Mother Breast cancer Social History (Reviewed 12/13/24 @ 11:04 by KALE Barreto Household Members: None Household Members Other:: alone Housing: House Do you presently have visiting nurse or other home services: No Alcohol intake: former Patient Tobacco Use Status: Former Tobacco user Tobacco use type: Cigarette e-Cigarette/Vaping Use: Never Used Second Hand Smoke Exposure: No Advance Directives Date on File: 10/19/21 service: No Current occupational status: retired Cognitive needs: Yes (CANE) Hearing needs: Yes (hearing aide) Vision needs: No (glaases) Physical Exam Vital Signs: BMI result Body Mass Index 19.1 Assessment & Plan Assessment & Plan (1) Osteoporosis: Code(s): M81.0 - Age-related osteoporosis without current pathological fracture Category: Medical Qualifiers: Osteoporosis type: age-related Presence of current pathological fracture: without current pathological fracture Qualified Code(s): M81.0 - Age- related osteoporosis without current pathological fracture Plan: This is a 89-year-old white female with a history of osteoporosis with secondary workup revealing? Primary hyperparathyroidism which is now resolved. She was treated with a bisphosphonate namely alendronate for 5 years and then transition to Prolia which she has received for 9 years. Recent DEXA showed stability in the bone density Plan is to continue the Prolia injections. We will get basic metabolic panel and calcium and albumin today prior to Prolia We did discuss the idea of transitioning to alendronate in 1 year's time around 10/2025 after next DeXA Orders: Orders Albumin Level Today M81.0 - Age-related osteoporosis without current pathological fracture Coding Level of Care Code Est Pt Level 3 (43197) Diagnoses Age-related osteoporosis without current pathological fracture M81.0 Osteoporosis type: age-related Presence of current pathological fracture: without current pathological fracture
[2024-12-13 11:04] VITALS: BP 100/42; PULSE 56; O2SAT 95; BMI 19.1
--- OUTSIDE RECORDS SUMMARY | 2024-12-13 12:16 | XMS_ITS | Clinical Summary ---
Author Organization [facility] Address [address] [place] [address] Phone Care Team Providers Care Blood Bank Laboratory Professional Name Role Phone Unavailable Primary Care Provider [...] It is not the complete legal health record.[facility]
--- OUTSIDE RECORDS SUMMARY | 2024-12-13 12:16 | XMS_ITS | Clinical Summary ---
Author Organization [facility] Address [address] [place] [address] Phone Care Team Providers Care Torch Straightener And Heater Name Role Phone Shirin Magana MD Primary Care Provider [phone] Allergies Active Allergy Reactions Criticality Noted Date [...] Insurance Medicare [facility] Care Teams Torch Straightener And Heater Relationship Specialty Start Date End Date Shirin Magana MD [address] [place], [place] PCP - General Internal Medicine 02/26/21
--- OUTSIDE RECORDS SUMMARY | 2024-12-13 12:16 | XMS_ITS | Clinical Summary ---
Author Organization [facility] Address [address] [place] [address] Care Team Providers Care Aviation Electrical Technician Name Role Phone Yamil Meraz MD Primary [...] total) by mouth. 0 07/31/2023 Active Tiotropium [place] Monohydrate (Spiriva Respimat) 1.25 MCG/ACT AERS Inhale [...] age to complete this topic Care Teams Aviation Electrical Technician Relationship Specialty Start Date End Date Yamil Meraz MD PCP - General Internal Medicine 09/04/23
== END 2024-12-13 11:17 | disposition home or self-care (01) ==
LOC: HO.ENCR 10:58
PROVIDERS: PCP Internal Medicine; Visit Provider Internal Medicine Endocrinology, Diabetes & Metabolism
DX: M81.0 Age-related osteoporosis without current pathological fracture (principal)
CPT/HCPCS: 99213

== ENCOUNTER → 2024-12-13 10:58 | Outpatient (BNVA) | payer MEDICARE, OTHER, SELFPAY | PROVIDERS: PCP Internal Medicine; Visit Provider Internal Medicine Endocrinology, Diabetes & Metabolism | DX: M81.0 Age-related osteoporosis without current pathological fracture (principal) | CPT/HCPCS: 99212 ==

== ENCOUNTER 2024-12-13 11:27 | Outpatient (REF) | payer MEDICARE, OTHER, SELFPAY ==
[2024-12-13 13:47] LABS: Albumin Level 3.1 g/dL (3.5-5.0); Anion Gap 12 (12-20); Blood Urea Nitrogen 34 mg/dL (9-16); Calcium 10.1 mg/dL (8.4-10.2); Carbon Dioxide 26 mmol/L (22-29); Chloride 108 mmol/L (96-108); Estimated Glomerular Filt Rate 55; Potassium 4.1 mmol/L (3.3-5.1); Sodium 142 mmol/L (135-145)
== END 2024-12-13 11:28 | disposition home or self-care (01) ==
LOC: HO.10HDL 11:27
PROVIDERS: Visit Provider Internal Medicine Endocrinology, Diabetes & Metabolism
DX: M81.0 Age-related osteoporosis without current pathological fracture (principal)
CPT/HCPCS: 36415; 80048; 82040

== ENCOUNTER 2024-12-15 10:51 | Outpatient (AMB) | payer MEDICARE, OTHER, SELFPAY ==
[2024-12-15 11:10] VITALS: BP 136/60
--- NOTE | 2024-12-15 11:10 | AM.OFFVISNUR ---
Vital Signs 12/15/24 11:10 BP 136/60 Blood Pressure Location Lt brachial Position Sitting Intake Visit Reasons: Prolia injection Allergies cephalexin (Keflex) Allergy (Intermediate, Verified 12/13/24 11:04) Unknown tetracycline (Tetracycline) Allergy (Intermediate, Verified 12/13/24 11:04) TONGUE SWOLLEN Office Meds Prolia 60 mg/mL subcutaneous syringe Performing Provider: Lewis Corbett MD Performing Location: [facility] Endocrinology Administered by: Maribel Hernández RN on 12/15/24 11:17 Dose Route Admin Location Dispensed Lot Number Expiration Date NDC Charging Car Operator 60 mg subcut right upper extremity 1 mL [id number] 12/19/26 71001-687-93 AMGEN Total Dispensed Waste 1 mL 0 % Comments: Patient tolerated injection well. Labs completed and were reviewed by Dr. Corbett. Pt denies any adverse reactions to previous injections. Patient requesting to have her BP taken today d/t previous low blood pressures. Assessment & Plan Assessment & Plan Orders: Orders AMB Denosumab Injection Practice Supplied Today M81.0 - Age-related osteoporosis without current pathological fracture Coding
--- OUTSIDE RECORDS SUMMARY | 2024-12-15 11:45 | XMS_ITS | Clinical Summary ---
Author Organization [facility] Address [address] [place] [address] Phone Care Team Providers Care Geomorphology Teacher Name Role Phone Shirin Magana MD Primary Care Provider [phone] Allergies Active Allergy Reactions Criticality Noted Date [...] to complete this topic Insurance Medicare [facility] Medicare [facility] Care Teams Geomorphology Teacher Relationship Specialty Start Date End Date Shirin Magana MD [address] [place], [place] PCP - General Internal Medicine 02/26/21
--- OUTSIDE RECORDS SUMMARY | 2024-12-15 11:45 | XMS_ITS | Clinical Summary ---
Author Organization [facility] Address [address] [address] Phone Care Team Providers Care Yarn Carrier Name Role Phone Unavailable Primary Care Provider [...] It is not the complete legal health record.[facility]
--- OUTSIDE RECORDS SUMMARY | 2024-12-15 11:45 | XMS_ITS | Clinical Summary ---
Author Organization [facility] Address [address] [place] [address] Care Team Providers Care Farm Consultant Name Role Phone Yamil Meraz MD Primary [...] total) by mouth. 0 07/31/2023 Active Tiotropium [place] Monohydrate (Spiriva Respimat) 1.25 MCG/ACT AERS Inhale [...] age to complete this topic Care Teams Farm Consultant Relationship Specialty Start Date End Date Yamil Meraz MD PCP - General Internal Medicine 09/04/23
== END 2024-12-15 11:16 | disposition home or self-care (01) ==
LOC: HO.ENCR 10:53
PROVIDERS: PCP Internal Medicine; Visit Provider Internal Medicine Endocrinology, Diabetes & Metabolism
DX: M81.0 Age-related osteoporosis without current pathological fracture (principal)

== ENCOUNTER → 2024-12-15 10:51 | Outpatient (BNVA) | payer MEDICARE, OTHER, SELFPAY | PROVIDERS: PCP Internal Medicine; Visit Provider Internal Medicine Endocrinology, Diabetes & Metabolism | DX: M81.0 Age-related osteoporosis without current pathological fracture (principal) | CPT/HCPCS: 96372; J0897 ==

== ENCOUNTER 2025-01-03 13:48 | Outpatient (AMB) | payer MEDICARE, OTHER, SELFPAY ==
[2025-01-03 14:00] VITALS: BP 116/40; PULSE 60; RESP 18; TEMP 36.3; O2SAT 97; BMI 19.3
--- NOTE | 2025-01-03 14:00 | A.OFFPC_ITS ---
Vital Signs 01/03/25 14:00 Height 4 ft 9 in Weight 89 lb BMI 19.3 BP 116/40 L Blood Pressure Location Lt brachial Position Sitting Respiration 18 Pulse 60 Pulse Source Pulse Oximeter Temp 97.3 F Temp Source Temporal Artery Scan Pulse Oximetry (%) 97 Oxygen Delivery Method Room Air Intake Visit Reasons: bp String Winding Machine Operator Required: No Accompanied by: Self / Same As Patient Allergies cephalexin (Keflex) Allergy (Intermediate, Verified 01/03/25 14:24) Unknown tetracycline (Tetracycline) Allergy (Intermediate, Verified 01/03/25 14:24) TONGUE SWOLLEN Medication List - Last Reconciled 01/03/25 by Shirin Duron MD acetaminophen ER (Tylenol Arthritis Pain) 1,300 mg PO Q6H PRN amlodipine 2.5 mg PO BEDTIME 90 days aspirin (Adult Aspirin Regimen) 81 mg PO DAILY carvedilol 6.25 mg PO BID 90 days ezetimibe 10 mg PO BEDTIME 90 days lansoprazole 30 mg PO DAILY@0630 losartan 100 mg PO DAILY polyethylene glycol 3350 17 grams PO DAILY PRN rosuvastatin 10 mg PO BEDTIME tiotropium bromide 1.25 mcg/actuation (Spiriva Respimat) 2 puffs inhalation DAILY vibegron (Gemtesa) 75 mg PO DAILY 90 days walker Pediatric walker Tobacco use date assessed: 01/03/25 Fall risk assessment: 1 Fall in past year Last assessed Fall Risk: 01/03/25 Dental Screening Dental Screen Date: 01/03/25 Did you have a dental visit in the last 12 months?: Yes Did you have a dental problem in the last 6 months where you did not have access to dental care?: No Was dental information given to patient?: Patient has dentist HPI HPI Comments History of Present Illness Details The patient is an 89-year-old female presenting with hypertension management. The patient has a history of essential hypertension, which has been a longstanding issue. She was advised by Dr. Peterson to reduce her blood pressure medication, but she was hesitant due to her history of high blood pressure. Her director of assessment noted that her blood pressure was low, which was unexpected given her history. The patient also reports anemia, for which she attends appointments at the blood bank. She experiences constipation and is trying to regulate her medication intake to manage this issue. She has arthritis, particularly affecting her neck, causing frequent pain. Her blood glucose levels were noted to be slightly elevated, and a repeat test is planned in six months. [facility] Medical History Hypertension Syncope and collapse Atrioventricular block, first degree Syncope Hospital discharge follow-up Acute leg pain Facial paresthesia Swelling of lower extremity Right leg swelling Hypertensive urgency Constipation Frequent UTI Edema of left lower leg Leg cramping Primary hypertension Uncontrolled hypertension Left hip pain Left-sided weakness Left sided sciatica Adult general medical exam Screening for breast cancer Osteoarthritis of right hip Hospital discharge follow-up Vitamin D deficiency Hypercalcemia Multiple lacunar infarcts Hearing loss Urge urinary incontinence GERD (gastroesophageal reflux disease) COPD (chronic obstructive pulmonary disease) Dyslipidemia Hypercalcemia Osteoporosis History of ductal carcinoma in situ (DCIS) of breast Surgical History History of right hip replacement History of colonoscopy History of lumpectomy of right breast History of pubovaginal sling H/O right inguinal hernia repair Family History Father Heart failure CVD (cardiovascular disease) Mother Breast cancer Social History Household Members: None Household Members Other:: alone Housing: House Do you presently have visiting nurse or other home services: No Alcohol intake: former Patient Tobacco Use Status: Former Tobacco user Tobacco use type: Cigarette e-Cigarette/Vaping Use: Never Used Second Hand Smoke Exposure: No Advance Directives Date on File: 10/19/21 service: No Current occupational status: retired Cognitive needs: Yes (CANE) Hearing needs: Yes (hearing aide) Vision needs: No (glaases) Questionnaire PHQ-9 Over the last 2 weeks, how often have you been bothered by any of the following problems? 1. Little interest or pleasure in doing things: nearly every day 2. Feeling down, depressed, or hopeless: not at all 3. Trouble falling or staying asleep, or sleeping too much: not at all 4. Feeling tired or having little energy: several days 5. Poor appetite or overeating: nearly every day 6. Feeling bad about yourself - or that you are a failure or have let yourself or your family down: not at all 7. Trouble concentrating on things, such as reading the newspaper or watching television: not at all 8. Moving or speaking so slowly that other people could have noticed. Or the opposite - being so fidgety or restless that you have been moving around a lot more than usual: not at all 9. Thoughts that you would be better off or of hurting yourself in some way: not at all Total score: 7 Depression Screening Interpretation: Positive Depression Screening Follow-up: Existing condition and Follow-up Visit Requested Depression Screening Done: Yes 81492 - PHQ-9 Billing: Yes Source: Developed by Drs. Lewis Lopez, Dixie Sharma, Clay Stevenson and colleagues, with an educational chucky from [employer]. Thrive Questionnaire Date Thrive assessed: 01/03/25 I am a: Patient What is your living situation today?: I have a steady place to live Within the past 12 months, did the food you bought not last and you didn't have the money to get more?: Never true Within the past 12 months, did you worry whether your food would run out before you got money to buy more?: Never true Do you have trouble paying for medicines?: No Do you have trouble getting transportation to medical appointments?: No Do you have trouble paying your heating and electricity bill?: No THRIVE Score: 0 AUDIT C Alcohol Use Questionnaire (AUDIT-C) 1. How often do you have a drink containing alcohol?: Never Total Score: 0 Score Reviewed/Action Taken: No LEMUEL-7 AMB Questionnaire LEMUEL-7 Date LEMUEL - 7 assessed: 01/03/25 Feeling nervous, anxious, or on edge: 0 = Not at all Not being able to stop or control worryin = Not at all Worrying too much about different things: 0 = Not at all Trouble relaxin = Not at all Being so restless that it is hard to sit still: 0 = Not at all Becoming easily annoyed or irritable: 0 = Not at all Feeling afraid as if something awful might happen: 0 = Not at all Total LEMUEL-7 score (0-4 normal; 5-9 mild; 10-14 moderate; 15-21 severe): 0 Source: Developed by Dixie Ramon. Zachary, Clay Stevenson and colleagues, with an educational chucky from [employer]. LEMUEL-7 Assessment Billing LEMUEL-7 Assessment Tool: LEMUEL-7 Assessment 73595 Review of Systems Const All systems reviewed & are unremarkable except as noted in HPI and below Card Denies chest pain at rest, Denies chest pain with activity, Denies edema, Denies irregular heart rhythm, Denies claudication, Denies dyspnea, Denies dyspnea on exertion, Denies orthopnea, Denies paroxysmal nocturnal dyspnea and Denies slow heart rate Resp Denies cough, Denies dyspnea and Denies dyspnea on exertion GI Denies abdominal pain, Denies change in bowel habits, Denies excessive flatus, Denies nausea and Denies vomiting Physical exam (Primary Care) Vital Signs: Last Vital Signs Temp 97.3 F 01/03/25 14:00 Pulse 60 01/03/25 14:00 Resp 18 01/03/25 14:00 BP 116/40 L 01/03/25 14:00 Pulse Ox 97 01/03/25 14:00 Oxygen Delivery Method Room Air 01/03/25 14:00 BMI result Body Mass Index 19.3 Tobacco/Smoking Status: Tobacco use Status Tobacco use date assessed 01/03/25 01/03/25 14:08 Patient Tobacco Use Status Former Tobacco user 01/03/25 14:08 Tobacco use type Cigarette 01/03/25 14:08 e-Cigarette/Vaping Use Never Used 01/03/25 14:08 PHQ-9: PHQ-9 Score PHQ-9: Total score 7 01/03/25 14:08 Depression Screening Interpretation: Positive Depression Screening Follow-up: Existing condition and Follow-up Visit Requested Thrive Assessment: Date of Thrive Assessment Date Thrive assessed 01/03/25 01/03/25 14:08 Resp Effort & Inspection: normal respiratory effort Auscultation: clear to auscultation bilaterally Cardio Jugular venous distension: no JVD Rate: regular rate Rhythm: regular rhythm Heart sounds: S1 normal heart sound present and S2 normal heart sound present Extrem General: Yes full ROM Coding Level of Care Code Est Pt Level 4 (18907) Complex EM visit Add On G2211 Diagnoses Essential hypertension I10 Hypertension type: essential hypertension Dyslipidemia E78.5 Gastroesophageal reflux disease, unspecified whether esophagitis present K21.9 Esophagitis presence: esophagitis presence not specified Iron deficiency anemia D50.9 Additional Codes LEMUEL-7 Assessment Billing - LEMUEL-7 Assessment Tool: LEMUEL-7 Assessment 17806 ([id number]) PHQ-9 - 28913 - PHQ-9 Billing: Yes ([id number]) Time Spent (min) 21 Assessment & Plan Assessment & Plan (1) Hypertension: Code(s): I10 - Essential (primary) hypertension Category: Medical Qualifiers: Hypertension type: essential hypertension Qualified Code(s): I10 - Essential (primary) hypertension (2) Dyslipidemia: Code(s): E78.5 - Hyperlipidemia, unspecified Category: Medical (3) GERD (gastroesophageal reflux disease): Code(s): K21.9 - Gastro-esophageal reflux disease without esophagitis Category: Medical Qualifiers: Esophagitis presence: esophagitis presence not specified Qualified Code(s): K21.9 - Gastro-esophageal reflux disease without esophagitis (4) Iron deficiency anemia: Code(s): D50.9 - Iron deficiency anemia, unspecified Category: Medical Plan Plan Patient was informed and verbally consented to the use of an ambient scribe for clinic note documentation during this visit. 1. Essential Hypertension The plan for essential hypertension includes discontinuing amlodipine 2.5 mg and reducing losartan from 100 mg to 50 mg daily. The patient will continue carvedilol 6.25 mg twice daily. 2. Anemia The patient is advised to continue regular appointments at the blood bank for anemia management. 3. Constipation The patient is managing constipation by regulating medication intake and using MiraLAX as needed. 4. Arthritis The patient reports neck pain due to arthritis, and no specific intervention was discussed during the visit. 5. Elevated Blood Glucose The plan includes monitoring blood glucose levels with a repeat test scheduled in six months. Orders: Orders Lipid Panel 6 Months E78.5 - Hyperlipidemia, unspecified Comprehensive [place]. Panel Fast 6 Months I10 - Essential (primary) hypertension Medications: New losartan 50 mg PO DAILY 90 tabs 1RF 90 days Discontinued amlodipine Discontinued Reason: Patient Completed Course 2.5 mg PO BEDTIME 90 days 90 tabs 1RF losartan Discontinued Reason: Patient Completed Course 100 mg PO DAILY 90 tabs 0RF
--- OUTSIDE RECORDS SUMMARY | 2025-01-03 19:07 | XMS_ITS | Clinical Summary ---
Author Organization [facility] Address [address] [place] [address] Care Team Providers Care Truck Loader And Unloader Name Role Phone Yamil Meraz MD Primary [...] total) by mouth. 0 07/31/2023 Active Tiotropium [place] Monohydrate (Spiriva Respimat) 1.25 MCG/ACT AERS Inhale [...] 75+ series) 2010 COVID-19 Vaccine (2 - 2024-2 6 season) 2024 06/16/2020 Influenza Vaccine (#1) 2024 Hepatitis B Vaccines Aged Out No long er eligible based on patient's age to complete this topic RSV Ped < 20 months Aged Out No longe r eligible based on patient's age to complete this topic Care Teams Truck Loader And Unloader Relationship Specialty Start Date End Date Yamil Meraz MD PCP - General Internal Medicine 09/04/23
--- OUTSIDE RECORDS SUMMARY | 2025-01-03 19:07 | XMS_ITS | Clinical Summary ---
Author Organization [facility] Address [address] [address] Phone Care Team Providers Care Asphalt Blender Name Role Phone Unavailable Primary Care Provider [...] It is not the complete legal health record.[facility]
== END 2025-01-03 14:42 | disposition home or self-care (01) ==
LOC: HO.HMCH 13:49
PROVIDERS: PCP Internal Medicine; Visit Provider Internal Medicine
DX: I10 Essential (primary) hypertension (principal); E78.5 Hyperlipidemia, unspecified; K21.9 Gastro-esophageal reflux disease without esophagitis; D50.9 Iron deficiency anemia, unspecified

== ENCOUNTER → 2025-01-03 13:48 | Outpatient (BNVA) | payer MEDICARE, OTHER, SELFPAY | PROVIDERS: PCP Internal Medicine; Visit Provider Internal Medicine | DX: I10 Essential (primary) hypertension (principal); M47.812 Spondylosis without myelopathy or radiculopathy, cervical region; E78.5 Hyperlipidemia, unspecified; K21.9 Gastro-esophageal reflux disease without esophagitis; D50.9 Iron deficiency anemia, unspecified; R73.9 Hyperglycemia, unspecified | CPT/HCPCS: 96127; 99212 ==

== ENCOUNTER 2025-01-05 13:57 | Outpatient (AMB) | payer MEDICARE, OTHER, SELFPAY ==
[2025-01-05 14:06] VITALS: BP 120/50; PULSE 70; BMI 19.5
--- NOTE | 2025-01-05 14:06 | A.OFFVIS_ITS ---
Vital Signs 01/05/25 14:06 Height 4 ft 9 in Weight 89 lb 15.178 oz BMI 19.5 BP 120/50 L Blood Pressure Location Lt brachial Position Sitting Pulse 70 Pulse Source Pulse Oximeter Intake Visit Reasons: 6 mth s/p echo Hospice Bereavement Coordinator Required: No Accompanied by: Self / Same As Patient Allergies cephalexin (Keflex) Allergy (Intermediate, Verified 01/05/25 14:11) Unknown tetracycline (Tetracycline) Allergy (Intermediate, Verified 01/05/25 14:11) TONGUE SWOLLEN HPI Comments Details: This is an 89-year-old female patient coming in for a follow-up visit. Patient with a history of CVA, hypertension, chronic anemia requiring regular blood transfusions, and COPD. Patient was previously seen in the office for syncopal episode which was deemed to be due to vagal tone response triggered by her constipation. Today, patient reports that she has been feeling well overall and has not had anymore episodes of syncope. Patient does note that recently her blood pressures has been low over and primary care adjusted her antihypertensives. Patient is otherwise reporting compliance with all medications and denying any cardiac symptoms of exertional chest pain, shortness of breath, palpitations, dizziness, orthopnea, PND, leg edema, presyncope, or syncope. Patient does note that she is continuing to follow with her Hematology for blood transfusions. Patient's main concern today has been about her arthritis pain. [facility] Medical History Hypertension Syncope and collapse Atrioventricular block, first degree Syncope Hospital discharge follow-up Acute leg pain Facial paresthesia Swelling of lower extremity Right leg swelling Hypertensive urgency Constipation Frequent UTI Edema of left lower leg Leg cramping Primary hypertension Uncontrolled hypertension Left hip pain Left-sided weakness Left sided sciatica Adult general medical exam Screening for breast cancer Osteoarthritis of right hip Hospital discharge follow-up Vitamin D deficiency Hypercalcemia Multiple lacunar infarcts Hearing loss Urge urinary incontinence GERD (gastroesophageal reflux disease) COPD (chronic obstructive pulmonary disease) Dyslipidemia Hypercalcemia Osteoporosis History of ductal carcinoma in situ (DCIS) of breast Surgical History History of right hip replacement History of colonoscopy History of lumpectomy of right breast History of pubovaginal sling H/O right inguinal hernia repair Family History Father Heart failure CVD (cardiovascular disease) Mother Breast cancer Social History Household Members: None Household Members Other:: alone Housing: House Do you presently have visiting nurse or other home services: No Alcohol intake: former Patient Tobacco Use Status: Former Tobacco user Tobacco use type: Cigarette e-Cigarette/Vaping Use: Never Used Second Hand Smoke Exposure: No Advance Directives Date on File: 10/19/21 service: No Current occupational status: retired Cognitive needs: Yes (CANE) Hearing needs: Yes (hearing aide) Vision needs: No (glaases) Review of Systems Const Denies daytime sleepiness, Denies difficulty sleeping, Denies snoring, Denies stops breathing during sleep and Denies weakness Card Denies chest pain, Denies rapid heart rate, Denies irregular heart rhythm, Denies claudication, Denies leg edema, Denies lightheadedness, Denies palpitations, Denies dyspnea, Denies dyspnea on exertion, Denies orthopnea, Denies paroxysmal nocturnal dyspnea and Denies slow heart rate Resp Denies cough, Denies dyspnea, Denies dyspnea on exertion and Denies snoring GI Reports no additional complaints, Denies hematochezia, Denies change in stool character and Denies dyspepsia Musc Denies abnormal gait, Denies muscle weakness and Denies numbness Neuro Denies abnormal gait, Denies numbness and Denies weakness Endo Denies palpitations Physical Exam Vital Signs: Last Vital Signs Pulse 70 01/05/25 14:06 BP 120/50 L 01/05/25 14:06 BMI result Body Mass Index 19.5 Const General: cooperative, healthy appearing, comfortable and no acute distress Orientation/consciousness: patient oriented x3 HEENT Head: Yes normal to inspection Neck Neck: Yes normal visual inspection, Yes trachea midline and Yes supple Chest Chest palpation & inspection: normal inspection of the chest Resp Effort & Inspection: normal respiratory effort Auscultation: clear to auscultation bilaterally, no crackles, no rales, no rhonchi and no wheezes Cardio Jugular venous distension: no JVD Palpation: normal PMI Rate: regular rate Rhythm: regular rhythm Heart sounds: S1 normal heart sound present, S2 normal heart sound present, no click, no gallops, no murmurs and no rubs Peripheral pulses: Peripheral pulses 2+ throughout GI Inspection: Yes normal to inspection Palpation (GI): Soft to palpation Auscultation: normal bowel sounds Skin General skin exam: no rashes or lesions noted Neuro General: patient oriented x3 Extrem General: Yes normal to inspection, No no pedal edema and No calf tenderness Psych Appearance: grossly normal Mental Status: mental status grossly normal Speech and movement: Normal speech and movement present Assessment & Plan Assessment & Plan (1) Syncope and collapse: Code(s): R55 - Syncope and collapse Category: Medical Plan: 01/19/2024-patient underwent a 3 day Holter monitor which showed a normal sinus rhythm with an average heart rate of 65 beats per minute, rare ectopy. Due to questions about early aortic stenosis, we repeated an echo on 11/01/2024 that showed normal LV systolic function with an ejection fraction at 66% with moderate mitral annular calcification and mild calcification of the aortic valve without aortic valve stenosis. Her isolated syncopal episode was thought to be a vagal type response triggered by her constipation. Patient has an upcoming GI appointment outpatient. Clinically stable and without any recurrence of her symptoms. No further testing indicated at this time. (2) Hypertension: Code(s): I10 - Essential (primary) hypertension Category: Medical Qualifiers: Hypertension type: essential hypertension Qualified Code(s): I10 - Essential (primary) hypertension Plan: Blood pressure today is well-controlled. Continue current regimen. Advised to continue monitoring blood pressures at home and keeping a log. Ideally, blood pressure goal less than 130/80. Advised heart healthy diet, regular exercise as tolerated, adequate hydration, and med compliance. Recommended addressing her arthritis pain with her PCP and gave her options of trying pymc-xpn-widzxow creams or gels such as Voltaren. Patient will contact the office with any concerns or change in symptoms. This note was generated using voice recognition software. While every effort has been made to ensure accuracy and proper business intelligence reporting analyst, there may be occasional errors that could affect the content or meaning of the described symptoms. Coding Level of Care Code Est Pt Level 3 (71334) Complex EM visit Add On G2211 Diagnoses Syncope and collapse R55 Essential hypertension I10 Hypertension type: essential hypertension Time Spent (min) 29 Comment Time spent in reviewing the chart, test results, assessment, counseling and documentation.
--- OUTSIDE RECORDS SUMMARY | 2025-01-05 17:40 | XMS_ITS | Clinical Summary ---
Author Organization [facility] Address [address] [place] [address] Phone Care Team Providers Care Dope Maintenance Worker Name Role Phone Shirin Magana MD Primary Care Provider [phone] Allergies Active Allergy Reactions Criticality Noted Date [...] Medicare [facility] Care Teams Dope Maintenance Worker Relationship Specialty Start Date End Date Shirin Magana MD [address] [place], [place] PCP - General Internal Medicine 02/26/21
--- OUTSIDE RECORDS SUMMARY | 2025-01-05 17:40 | XMS_ITS | Clinical Summary ---
Author Organization [facility] Address [address] [address] Phone Care Team Providers Care Police Liaison Name Role Phone Unavailable Primary Care Provider [...] It is not the complete legal health record.[facility]
--- OUTSIDE RECORDS SUMMARY | 2025-01-05 17:40 | XMS_ITS | Clinical Summary ---
Author Organization [facility] Address [address] [place] [address] Care Team Providers Care Tennis Ball Coverer Hand Name Role Phone Yamil Meraz MD Primary [...] total) by mouth. 0 07/31/2023 Active Tiotropium [place] Monohydrate (Spiriva Respimat) 1.25 MCG/ACT AERS Inhale [...] age to complete this topic Care Teams Tennis Ball Coverer Hand Relationship Specialty Start Date End Date Yamil Meraz MD PCP - General Internal Medicine 09/04/23
== END 2025-01-05 14:36 | disposition home or self-care (01) ==
LOC: HO.HCS 13:58
PROVIDERS: PCP Internal Medicine
DX: R55 Syncope and collapse (principal); I10 Essential (primary) hypertension
CPT/HCPCS: 99213; G2211

== ENCOUNTER → 2025-01-05 13:57 | Outpatient (BNVA) | payer MEDICARE, OTHER, SELFPAY | PROVIDERS: PCP Internal Medicine | DX: R55 Syncope and collapse (principal); I10 Essential (primary) hypertension | CPT/HCPCS: 99212 ==

== ENCOUNTER 2025-01-13 12:57 | Outpatient (AMB) | payer MEDICARE, OTHER, SELFPAY ==
--- NOTE | 2025-01-13 13:08 | A.OFFVIS_ITS ---
Intake Visit Reasons: follow up/OAB Intake Note: Patient is present for follow up/OAB Urology Medication:GEMTESA Antibiotic Allergy:CEPHALEXIN, TETRACYCLINE Blood Thinner:ASPIRIN PVR:0ml Baccarat Dealer Required: No Allergies cephalexin (Keflex) Allergy (Intermediate, Verified 01/13/25 13:08) Unknown tetracycline (Tetracycline) Allergy (Intermediate, Verified 01/13/25 13:08) TONGUE SWOLLEN Medication List - Last Reconciled 01/13/25 by Daysi Euceda MD acetaminophen ER (Tylenol Arthritis Pain) 1,300 mg PO Q6H PRN aspirin (Adult Aspirin Regimen) 81 mg PO DAILY carvedilol 6.25 mg PO BID ezetimibe 10 mg PO BEDTIME 90 days lansoprazole 30 mg PO DAILY@0630 losartan 50 mg PO DAILY 90 days polyethylene glycol 3350 17 grams PO DAILY PRN rosuvastatin 10 mg PO BEDTIME tiotropium bromide 1.25 mcg/actuation (Spiriva Respimat) 2 puffs inhalation DAILY vibegron (Gemtesa) 75 mg PO DAILY 90 days walker Pediatric walker HPI Comments Details: 01/13/25--Chichi is here for annual follow-up for lower urinary tract symptoms urgency. She is prescribed toe she is prescribed Gemtesa 75 mg daily History of Present Illness The patient is an 89-year-old female presenting with lower urinary tract symptoms. She experiences urgency and occasional urinary incontinence, necessitating the use of pads. The symptoms are sometimes triggered by movement, and she consumes two cups of coffee daily, which may exacerbate the condition. The patient is currently prescribed Gemtesa (vibegron) 89 mg daily, which she takes every morning. She has been advised to monitor her fluid intake, particularly caffeine, as it can increase urinary frequency. The patient has been instructed to not let more than three hours pass between bathroom visits to manage urgency. Results - Urinalysis: Normal findings Plan . Lower Urinary Tract Symptoms - Continue Gemtesa (vibegron) 89 mg daily. - Advised to monitor caffeine intake and maintain regular bathroom visits every three hours. - Follow-up with nurse practitioner in 9 months to assess progress. 02/16/24--Chichi is an 88-year-old female who presents today to the office for a follow-up. She is being followed due to pelvic floor weakness, cystocele, chronic cystitis, and OAB symptoms. She was being treated with tolteridine, now doing well with gemtesa. She denies recent UTI symptoms. 08/18/23--Chichi is an 88-year-old female who presents today to the office for a follow-up. She is being followed due to pelvic floor weakness, cystocele, chronic cystitis, and OAB symptoms. She states she is doing well on tolteridine 4mg daily. She denies dysuria or hematuria. Will continue tolteridine. 02/14/2023?She has a past medical history of hypertension, GERD, COPD, dyslipidemia, and osteoporosis, ductal insitu breast cancer. She also has history of stroke. Patient has lower urinary tract symptoms of frequency and urge incontinence. She has been on nitrofurantoin 100mg daily for prophylaxis and feels that this has significantly helped and wants to continue this medication. She was last seen by me on 10/16/2022 to discuss cystocele, exam noted mild pelvic floor laxity. I discontinued tolterodine at that time started Gemtesa 75 mg QD and Estrogen cream. Patient states that the cream has caused irritation on her skin and had burning sensation, so she has discontinued using the cream. Patient states that she has been taking Gemtesa 75 mg daily but she feels that she is not emptying her bladder as easily and states that she feels like she needs to go to the bathroom more frequently. I will resume tolterodine 4 mg as she tolerated it better. Cont. Nitrofurantoin 100mg daily. DC estrace cream. Follow-up in 6 months. 10/16/22--Pelvic exam: Mild cystocele, no significant prolapse, atrophic vaginitis noted. [facility] Medical History Hypertension Syncope and collapse Atrioventricular block, first degree Syncope Hospital discharge follow-up Acute leg pain Facial paresthesia Swelling of lower extremity Right leg swelling Hypertensive urgency Constipation Frequent UTI Edema of left lower leg Leg cramping Primary hypertension Uncontrolled hypertension Left hip pain Left-sided weakness Left sided sciatica Adult general medical exam Screening for breast cancer Osteoarthritis of right hip Hospital discharge follow-up Vitamin D deficiency Hypercalcemia Multiple lacunar infarcts Hearing loss Urge urinary incontinence GERD (gastroesophageal reflux disease) COPD (chronic obstructive pulmonary disease) Dyslipidemia Hypercalcemia Osteoporosis History of ductal carcinoma in situ (DCIS) of breast Surgical History History of right hip replacement History of colonoscopy History of lumpectomy of right breast History of pubovaginal sling H/O right inguinal hernia repair Family History Father Heart failure CVD (cardiovascular disease) Mother Breast cancer Social History Household Members: None Household Members Other:: alone Housing: House Do you presently have visiting nurse or other home services: No Alcohol intake: former Patient Tobacco Use Status: Former Tobacco user Tobacco use type: Cigarette e-Cigarette/Vaping Use: Never Used Second Hand Smoke Exposure: No Advance Directives Date on File: 10/19/21 service: No Current occupational status: retired Cognitive needs: Yes (CANE) Hearing needs: Yes (hearing aide) Vision needs: No (glaases) Office Procedures Post Void Residual Post Residual Void Post Void Residual (PVR): 0 [id number] Void Residual by ultrasound Results AMB Urinalysis, Automated UA Leukoctes 15 Louie/uL Last Edit by Mariam Hagen on 01/13/25 17:06 UA Nitrite Negative Last Edit by Mariam Hagen on 01/13/25 17:06 UA Urobilinogen 0.2 mg/dL Last Edit by Mariam Hagen on 01/13/25 17:06 UA Protein 15 mg/dL Last Edit by Mariam Hagen on 01/13/25 17:06 UA pH 5.5 Last Edit by Mariam Hagen on 01/13/25 17:06 UA Blood 0 Golden/uL Last Edit by Mariam Hagen on 01/13/25 17:06 UA Specific Newcomb 1.015 Last Edit by Mariam Hagen on 01/13/25 17:06 UA Ketone Negative Last Edit by Mariam Hagen on 01/13/25 17:06 UA Bilirubin 1 mg/dL Last Edit by Mariam Hagen on 01/13/25 17:06 UA Glucose 0 mg/dL Last Edit by Mariam Hagen on 01/13/25 17:06 Assessment & Plan Assessment & Plan Orders: Orders AMB Urinalysis Automated Today N32.81 - Overactive bladder, N39.41 - Urge incontinence AMB Post Void Residual by ultrasound Today N32.81 - Overactive bladder, N39.41 - Urge incontinence Medications: Refilled vibegron (Gemtesa) 75 mg PO DAILY 90 days 90 tabs 3RF Coding CPT Codes Post Residual Void - PVR CPT Code: 41178-[id number] Void Residual by ultrasound ([id number])
--- OUTSIDE RECORDS SUMMARY | 2025-01-13 17:43 | XMS_ITS | Clinical Summary ---
Author Organization [facility] Address [address] [place] [address] [place] [address] Phone Care Team Providers Care Otter Trawler Boatswain Name Role Phone Shirin Magana MD Primary Care Provider [phone] Allergies Active Allergy Reactions Criticality Noted Date [...] [facility] Medicare [facility] Care Teams Otter Trawler Boatswain Relationship Specialty Start Date End Date Shirin Magana MD [address] [place], [place] PCP - General Internal Medicine 02/26/21
--- OUTSIDE RECORDS SUMMARY | 2025-01-13 17:43 | XMS_ITS | Clinical Summary ---
Author Organization [facility] Address [address] [place] [address] Care Team Providers Care Flaker Tender Name Role Phone Yamil Meraz MD Primary [...] total) by mouth. 0 07/31/2023 Active Tiotropium [place] Monohydrate (Spiriva Respimat) 1.25 MCG/ACT AERS Inhale [...] age to complete this topic Care Teams Flaker Tender Relationship Specialty Start Date End Date Yamil Meraz MD PCP - General Internal Medicine 09/04/23
--- OUTSIDE RECORDS SUMMARY | 2025-01-13 17:43 | XMS_ITS | Clinical Summary ---
Author Organization [facility] Address [address] [address] Phone Care Team Providers Care Solar Installation Technician Name Role Phone Unavailable Primary Care Provider [...] It is not the complete legal health record.[facility]
== END 2025-01-13 13:39 | disposition home or self-care (01) ==
LOC: HO.HUSH 12:58
PROVIDERS: PCP Internal Medicine; Visit Provider Urology
DX: N39.41 Urge incontinence (principal); N32.81 Overactive bladder

== ENCOUNTER → 2025-01-13 12:57 | Outpatient (BNVA) | payer MEDICARE, OTHER, SELFPAY | PROVIDERS: PCP Internal Medicine; Visit Provider Urology | DX: N39.41 Urge incontinence (principal); N32.81 Overactive bladder; N30.20 Other chronic cystitis without hematuria; N81.10 Cystocele, unspecified; N28.1 Cyst of kidney, acquired; N95.2 Postmenopausal atrophic vaginitis; Z79.82 Long term (current) use of aspirin | CPT/HCPCS: 51798; 81003; 99212 ==

== ENCOUNTER 2025-02-18 11:57 | Outpatient (AMB) | payer MEDICARE, OTHER, SELFPAY ==
--- NOTE | 2025-02-18 11:58 | HO.NEPHOV_ITS ---
Vital Signs 02/18/25 12:01 Height 4 ft 9 in Weight 88 lb 4 oz BMI 19.1 BP 164/60 H Blood Pressure Location Rt brachial Position Sitting Pulse 73 Pulse Source Pulse Oximeter Pulse Oximetry (%) 97 Oxygen Delivery Method Room Air Intake Visit Reasons: FU-[facility] Stereoptic Projection Topographer Required: No Accompanied by: Self / Same As Patient Allergies cephalexin (Keflex) Allergy (Intermediate, Verified 02/18/25 12:01) Unknown tetracycline (Tetracycline) Allergy (Intermediate, Verified 02/18/25 12:01) TONGUE SWOLLEN HPI Comments Details: Chichi was seen in follow-up of her hypertension. She has history of cerebrovascular accident. She denies any chest pain, dizziness, headache, visual disturbance, pedal edema. Her blood pressure had been running high since medications have been cut back . She had a syncope in Apr and her BP medications had been adjusted( D/Álvaro Chlorthalidone and carvedilol was reduced) She avoids nonsteroidal anti-inflammatory medication and chief with a low-sodium diet. She has history of renal cyst. She has no flank pain, hematuria or any other urinary symptoms. She had anemia & has been seen by Heme Onc and gets PRBC. [facility] Medical History Hypertension Syncope and collapse Atrioventricular block, first degree Syncope Hospital discharge follow-up Acute leg pain Facial paresthesia Swelling of lower extremity Right leg swelling Hypertensive urgency Constipation Frequent UTI Edema of left lower leg Leg cramping Primary hypertension Uncontrolled hypertension Left hip pain Left-sided weakness Left sided sciatica Adult general medical exam Screening for breast cancer Osteoarthritis of right hip Hospital discharge follow-up Vitamin D deficiency Hypercalcemia Multiple lacunar infarcts Hearing loss Urge urinary incontinence GERD (gastroesophageal reflux disease) COPD (chronic obstructive pulmonary disease) Dyslipidemia Hypercalcemia Osteoporosis History of ductal carcinoma in situ (DCIS) of breast Surgical History History of right hip replacement History of colonoscopy History of lumpectomy of right breast History of pubovaginal sling H/O right inguinal hernia repair Family History Father Heart failure CVD (cardiovascular disease) Mother Breast cancer Social History Household Members: None Household Members Other:: alone Housing: House Do you presently have visiting nurse or other home services: No Alcohol intake: former Patient Tobacco Use Status: Former Tobacco user Tobacco use type: Cigarette e-Cigarette/Vaping Use: Never Used Second Hand Smoke Exposure: No Advance Directives Date on File: 10/19/21 service: No Current occupational status: retired Cognitive needs: Yes (CANE) Hearing needs: Yes (hearing aide) Vision needs: No (glaases) Review of Systems Const All systems reviewed & are unremarkable except as noted in HPI and below Physical Exam Vital Signs: Last Vital Signs Pulse 73 02/18/25 12:01 BP 164/60 H 02/18/25 12:01 Pulse Ox 97 02/18/25 12:01 Oxygen Delivery Method Room Air 02/18/25 12:01 BMI result Body Mass Index 19.1 Const General: comfortable and no acute distress Orientation/consciousness: patient oriented x3 HEENT Head: Yes normocephalic Mouth: Normal oral and palatal mucosa present Eyes EOM: EOMs intact bilaterally Neck Neck: Yes supple Resp Auscultation: clear to auscultation bilaterally Cardio Jugular venous distension: no JVD Rate: regular rate GI Palpation (GI): Soft to palpation Auscultation: normal bowel sounds General: Yes no CVA tenderness Back/Spine/Pelvis Back: no CVA tenderness Skin General skin exam: no rashes or lesions noted Neuro General: patient oriented x3 and moves all extremities Extrem General: Yes no pedal edema Results Reviewed Nephrology Results: Hgb, (12.0-16.0) 8.2 g/dl L 02/15/25 WBC, (4.8-10.8) 5.8 X10*3/uL 02/15/25 Plt Count, (160-400) 352 X10*3/uL 02/15/25 Sodium, (135-145) 142 mmol/L 12/13/24 Potassium, (3.3-5.1) 4.1 mmol/L 12/13/24 Chloride, (96-108) 108 mmol/L 12/13/24 Carbon Dioxide, (22-29) 26 mmol/L 12/13/24 BUN, (9-16) 34 mg/dL H 12/13/24 Creatinine, (0.5-1.4) 0.95 mg/dL 12/13/24 Calcium, (8.4-10.2) 10.1 mg/dL 12/13/24 Assessment & Plan Assessment & Plan (1) Hypertension: Code(s): I10 - Essential (primary) hypertension Category: Medical Qualifiers: Hypertension type: essential hypertension Qualified Code(s): I10 - Essential (primary) hypertension Plan Chichi has longstanding hypertension. She has history of CVA. She is not known to have any significant proteinuria. Her renal functions are at baseline. Her serum potassium is normal. She is compliant with her medications. She avoids nonsteroidal anti-inflammatory medications and maintain good hydration.Her renal cyst has been asymptomatic. She maintains a low-sodium diet. I increased her carvedilol to 12.5 mg AM and 6.25 mg PM. She could continue losartan 50 mg as well. All questions answered. Follow-up given Medications: Changed From carvedilol 6.25 mg PO BID 180 tabs 3RF To carvedilol 6.25 mg orally 3 tablets daily; ( Take 2 tablets AM and 1 tablet PM) 90 tabs 6RF Coding Level of Care Code Est Pt Level 4 (24190) Diagnoses Essential hypertension I10 Hypertension type: essential hypertension
[2025-02-18 12:01] VITALS: BP 164/60; PULSE 73; O2SAT 97; BMI 19.1
--- OUTSIDE RECORDS SUMMARY | 2025-02-18 13:32 | XMS_ITS | Clinical Summary ---
Author Organization [facility] Address [address] [place] [address] Care Team Providers Care Business Intelligence Developer Name Role Phone Yamil Meraz MD [...] total) by mouth. 0 07/31/2023 Active Tiotropium [place] Monohydrate (Spiriva Respimat) 1.25 MCG/ACT AERS Inhale [...] age to complete this topic Care Teams Business Intelligence Developer Relationship Specialty Start Date End Date Yamil Meraz MD PCP - General Internal Medicine 09/04/23
--- OUTSIDE RECORDS SUMMARY | 2025-02-18 13:32 | XMS_ITS | Clinical Summary ---
Author Organization [facility] Address [address] [address] Phone Care Team Providers Care Clinical Operations Specialist Name Role Phone Unavailable Primary Care Provider [...] It is not the complete legal health record.[facility]
== END 2025-02-18 12:16 | disposition home or self-care (01) ==
LOC: HO.HKA 11:57
PROVIDERS: PCP Internal Medicine; Visit Provider Internal Medicine Nephrology
DX: I10 Essential (primary) hypertension (principal)
CPT/HCPCS: 99214

== ENCOUNTER → 2025-02-18 11:57 | Outpatient (BNVA) | payer MEDICARE, OTHER, SELFPAY | PROVIDERS: PCP Internal Medicine; Visit Provider Internal Medicine Nephrology | DX: I10 Essential (primary) hypertension (principal); Z87.891 Personal history of nicotine dependence | CPT/HCPCS: 99212 ==